=== PATIENT | male | born 1990 ===

== ENCOUNTER 2022-04-10 12:23 | Outpatient (REF) | payer BC, SELFPAY ==
--- NOTE | ~2022-04-10 | XR_ITS ---
EXAMINATION: XR HAND, LEFT CLINICAL INFORMATION: Puncture wound without foreign body COMPARISON: None TECHNIQUE: PA, lateral, and oblique views of the left hand. FINDINGS: Third digit: No evidence of fracture or malalignment. No radiopaque foreign body is identified. Joint spaces are maintained. Remainder of the osseous structures appear intact. XR/XR hand LT 2V IMPRESSION: No evidence of acute fracture or malalignment. No radiographic evidence of radiopaque foreign body.
== END 2022-04-10 12:24 | disposition home or self-care (01) ==
LOC: HO.XRAY 12:23
PROVIDERS: PCP Internal Medicine; Visit Provider Physician Assistant
DX: S61.432D Puncture wound without foreign body of left hand, subsequent encounter (principal)
CPT/HCPCS: 73120

== ENCOUNTER 2022-04-30 07:03 | Outpatient (REF) | payer BC, SELFPAY ==
--- NOTE | ~2022-04-30 | XR_ITS ---
EXAMINATION: XR HAND, LEFT CLINICAL INFORMATION: Pain, left third finger. Prior report notes history puncture wound. COMPARISON: Radiographs left hand 04/10/2022 TECHNIQUE: PA, lateral, and oblique views of the left hand. FINDINGS: There is a small cleft or possibly an incomplete cortical fracture lateral head third finger middle phalanx with punctate osseous density overlying this site on AP view. No callus or destructive process. No periostitis. No dislocation or subluxation. Remainder of the bony structures appear intact. There is normal bony mineralization. No gas tracking in soft tissues. XR/XR hand LT min 3V IMPRESSION: -Small cleft or incomplete cortical fracture lateral head third finger middle phalanx with punctate osseous density overlying this area. -No dislocation or destructive process. No gas tracking in soft tissues.
== END 2022-04-30 07:04 | disposition home or self-care (01) ==
LOC: HO.HOSX 07:03
PROVIDERS: Visit Provider Physician Assistant
DX: M79.642 Pain in left hand (principal)
CPT/HCPCS: 73130

== ENCOUNTER 2022-05-09 10:20 | Outpatient (REF) | payer BC, SELFPAY ==
--- NOTE | ~2022-05-09 | XR_ITS ---
EXAMINATION: XR LUMBOSACRAL SPINE CLINICAL INFORMATION: M51.9 Unspecified thoracic, thoracolumbar and lumbosacral pain. COMPARISON: None TECHNIQUE: Three views of the lumbosacral spine. FINDINGS: Normal lumbar segmentation with 5 nonrib-bearing vertebrae of normal height and normal lumbar lordosis. There are some small Schmorl's nodes seen at the vertebral endplates at T12 and L1. There are mild degenerative disc changes at T12-L1 with mild disc narrowing. No lumbar vertebral compression, spondylolisthesis, or destructive process. No erosive changes. The SI joints and visualized sacrum are unremarkable. XR/XR lumbar spine 2-3V IMPRESSION: Degenerative disc changes T12-L1. No lumbar vertebral compression, spondylolisthesis, or destructive process.
[2022-05-09 10:41] LABS: MANUAL DIFF FLAG NO
[2022-05-09 11:26] LABS: Basophils Absolute Auto 0.1 X10*3/uL (0.0-0.2); Basophils Percent Auto 1.3 % (0-2); Eosinophils Absolute Auto 0.1 X10*3/uL (0.0-0.4); Eosinophils Percent Auto 2.2 % (0-4); Hematocrit 45.4 % (42.0-52.0); Hemoglobin 15.4 g/dl (14.0-18.0); Imm Gran Abs Auto 0.01 X10*3/uL (0.00-0.03); Imm Gran Pct Auto 0.2 % (0.0-0.4); Lymphocytes Absolute Auto 1.9 X10*3/uL (1.2-4.9); Lymphocytes Percent Auto 34.2 % (20-40); Mean Corpuscular HGB Conc 33.9 g/dl (31.0-36.0); Mean Corpuscular Hemoglobin 26.9 pg (27.0-33.0); Mean Corpuscular Volume 79.4 fL (80.0-98.0); Mean Platelet Volume 9.6 fL (9.4-12.4); Monocytes Absolute Auto 0.4 X10*3/uL (0.1-1.2); Monocytes Percent Auto 6.5 % (2-11); Neutrophils Absolute Auto 3.1 x10*3/uL (2.0-8.3); Neutrophils Percent Auto 55.6 % (45-73); Platelet Count 295 X10*3/uL (160-400); Red Blood Count 5.72 X10*6/uL (4.60-5.80); Red Cell Distribution Width 13.7 % (11.0-16.0); White Blood Count 5.6 X10*3/uL (4.8-10.8)
[2022-05-09 11:38] LABS: Estimated Average Glucose 105 mg/dL; Hemoglobin A1c % 5.3 %
[2022-05-09 12:01] LABS: Alanine Aminotransferase 29 U/L (0-40); Albumin Level 4.8 g/dL (3.5-5.0); Alkaline Phosphatase 49 U/L (39-117); Anion Gap 13 (12-20); Aspartate Amino Transferase 23 U/L (5-37); Bilirubin Total 1.2 mg/dL (0.0-1.0); Blood Urea Nitrogen 13 mg/dL (9-16); Calcium 9.5 mg/dL (8.4-10.2); Carbon Dioxide 26 mmol/L (22-29); Chloride 105 mmol/L (96-108); Cholesterol 171 mg/dL; Estimated Glomerular Filt Rate > 60; Glucose Random 94 mg/dL (60-115); HDL Cholesterol 36 mg/dL; LDL Cholesterol Calculated 106 mg/dl; Potassium 4.3 mmol/L (3.3-5.1); Sodium 140 mmol/L (135-145); Total Protein 7.8 g/dL (6.5-8.0); Triglycerides 149 mg/dL
[2022-05-09 12:24] LABS: Thyroid Stimulating Hormone 2.04 uIU/mL (0.32-4.0)
[2022-05-09 12:30] LABS: Vitamin B12 783 pg/mL (200-900)
== END 2022-05-09 10:21 | disposition home or self-care (01) ==
LOC: HO.XRAY 10:20
PROVIDERS: PCP Internal Medicine; Visit Provider Internal Medicine
DX: M51.9 Unspecified thoracic, thoracolumbar and lumbosacral intervertebral disc disorder (principal); E66.9 Obesity, unspecified; E78.00 Pure hypercholesterolemia, unspecified
CPT/HCPCS: 36415; 72100; 80053; 80061; 82607; 82746; 83036; 84439; 84443; 85025

== ENCOUNTER → 2022-05-27 08:07 | Outpatient (REF) | payer BC, SELFPAY ==
--- NOTE | 2022-05-27 08:12 | CA_ITS ---
Acquisition Time: 2022-05-27 08:27:06 Total Exercise Time: 00:09:30 Test Indications: Chest Pain Medications: ELETRIPTAN RIZATRIPAN SERTRALINE TRAZADONE VALACYCLOVIR Protocol: LATESHA Max HR: 193 BPM 102% of Pred: 189 BPM Max BP: 190/048 mmHG Max Work Load: 11.1 METS Exerise stress test using Latesha protocol for total of 9 min 30 sec, METS 10.1, TAPHR 102%. Pt tolerated exercise stress test well, denies any cardiac sx. EKG without any arrhythmias, no ischemic changes found during exercise or in recovery. Hypertensive response to exercise. Test reviewed with Dr. Schrader. Referred By: Rosamaria Sam Overread By: Kezia Caceres NP
[2022-06-01 11:02] LABS: Testosterone, Total 480 ng/dL (250-1100)
== END ==
LOC: HO.CARD 08:07
PROVIDERS: PCP Internal Medicine; Visit Provider Internal Medicine
DX: R07.9 Chest pain, unspecified (principal); K21.9 Gastro-esophageal reflux disease without esophagitis
CPT/HCPCS: 36415; 84403; 93017

== ENCOUNTER 2022-07-25 09:40 | Outpatient (REF) | payer BC, SELFPAY ==
--- NOTE | ~2022-07-25 | US_ITS ---
EXAMINATION: US EXTRACRANIAL CAROTID DUPLEX, BILATERAL CLINICAL INFORMATION: Left carotid bruit COMPARISON: None TECHNIQUE: Real-time ultrasound and Doppler techniques (integrating B-mode 2-D vascular images, Doppler spectral analysis and color-flow Doppler imaging) were utilized to interrogate the extracranial carotid arteries, the vertebral arteries and proximal subclavian arteries bilaterally. The degree of stenosis is determined by criteria similar to NASCET. FINDINGS: Right Side: 1. There is no significant atherosclerotic plaque seen in the bifurcation/proximal ICA region. 2. The common carotid artery PSV proximally is 171 cm/s and distally 164 cm/s. 3. The proximal internal carotid artery velocities are 114 cm/s systolic and 35 cm/s diastolic. 4. The proximal external carotid artery PSV is 139 cm/s. 5. The vertebral artery shows antegrade flow. 6. The subclavian artery waveforms are normal. Left Side: 1. There is no significant atherosclerotic plaque seen in the bifurcation/proximal ICA region. 2. The common carotid artery PSV proximally is 163 cm/s and distally 149 cm/s. 3. The proximal internal carotid artery velocities are 110 cm/s systolic and 32 cm/s diastolic. 4. The proximal external carotid artery PSV is 125 cm/s. 5. The vertebral artery shows antegrade flow. 6. The subclavian artery waveforms are normal. 7. Prominent lymph node is seen in the left neck adjacent to the carotid bifurcation measuring 3.2 x 1.0 x 2.0 cm US/US carotid duplex BI IMPRESSION: 1. RIGHT: Normal right internal carotid artery without atherosclerotic plaque or hemodynamically significant stenosis. 2. LEFT: Normal left internal carotid artery without atherosclerotic plaque or hemodynamically significant stenosis. 3. Enlarged lymph node in the left neck.
== END 2022-07-25 09:41 | disposition home or self-care (01) ==
LOC: HO.HMGCX 09:40
PROVIDERS: PCP Physician Assistant; Visit Provider Physician Assistant
DX: R09.89 Other specified symptoms and signs involving the circulatory and respiratory systems (principal)
CPT/HCPCS: 93880

== ENCOUNTER 2022-10-31 13:37 | Outpatient (REF) | payer BC, SELFPAY ==
--- NOTE | 2022-10-31 16:11 | PFT_ITS ---
INDICATION: Shortness of breath. SPIROMETRY: FEV1 to FVC of 88% with an FEV1 of 4.1 L, which is 89% predicted. FVC of 4.68 L, which is 84% predicted. No significant response to bronchodilators noted. Maximum voluntary ventilation 94% predicted. LUNG VOLUMES: Total lung capacity 84% predicted with an expiratory reserve volume of 46% predicted. DIFFUSION CAPACITY: DLCO 90% predicted. Flow volume loop appears to be normal. COMPARISONS: None. INTERPRETATION: No obstructive nor restrictive ventilatory defects identified. No significant response to bronchodilators noted. Normal maximum voluntary ventilation. The patient has a low normal total lung capacity and a decreased expiratory reserve volume secondary to an elevated BMI. Diffusion capacity is within normal limits. No clear indication for the patient's dyspnea symptoms based on this PFT. Clinical correlation warranted. MD YOSEF Mclaughlin/JOSI / [id number]
== END 2022-10-31 13:38 | disposition home or self-care (01) ==
LOC: HO.RESP 13:37
PROVIDERS: PCP Internal Medicine; Visit Provider Internal Medicine
DX: R06.02 Shortness of breath (principal)
CPT/HCPCS: 94060; 94727; 94729

== ENCOUNTER → 2023-01-07 13:54 | Outpatient (BNVA) | payer BC, SELFPAY | PROVIDERS: PCP Internal Medicine; Visit Provider Nurse Practitioner Family | DX: Z13.89 Encounter for screening for other disorder (principal) ==

== ENCOUNTER → 2023-03-20 10:53 | Outpatient (BNVA) | payer BC, SELFPAY | PROVIDERS: PCP Internal Medicine; Visit Provider Urology | DX: Z30.2 Encounter for sterilization (principal); F41.8 Other specified anxiety disorders | CPT/HCPCS: 55250 ==

== ENCOUNTER 2023-05-22 14:24 | Outpatient (REF) | payer BC, SELFPAY | END 2023-05-22 14:25 | disposition home or self-care (01) | LOC: HO.LAB 14:24 | PROVIDERS: PCP Internal Medicine; Visit Provider Internal Medicine | DX: R73.02 Impaired glucose tolerance (oral) (principal); N28.9 Disorder of kidney and ureter, unspecified; E78.00 Pure hypercholesterolemia, unspecified; R71.8 Other abnormality of red blood cells | CPT/HCPCS: 36415; 80053; 80061; 82607; 82728; 82746; 83540; 84439; 84443; 85025; 85045 ==

== ENCOUNTER 2023-07-17 08:57 | Outpatient (REF) | payer BC, SELFPAY ==
--- NOTE | ~2023-07-17 | FL_ITS ---
EXAMINATION: XR FLUOROSCOPY UPPER GI WITH AIR CLINICAL INFORMATION: Patient complaining of episodic dysphasia hypopharyngeal phase, GERD. COMPARISON: None available. TECHNIQUE: Fluoroscopic standard technique air contrast upper GI examination was performed utilizing thick and thin barium with effervescent granules. Numerous spot images were obtained. FINDINGS: Lateral cine exam during swallowing demonstrated normal oropharyngeal and hypopharyngeal phases with normal epiglottic inversion and normal soft palate elevation. No evidence of nasopharyngeal reflux or laryngeal penetration or aspiration. The hypopharynx has a normal appearance without evidence of mass, cricopharyngeal bar, or other abnormality. The esophagus has a normal caliber and course. There is no stricture, mass, or evidence of mucosal abnormality. Esophageal peristalsis was normal, with powerful urinary peristalsis and no tertiary contractions. No evidence of hiatus hernia was evident. There was episodic gastroesophageal reflux noted during the examination to the level of the aortic arch. Images of the stomach demonstrates normal contour and fold pattern. No ulcerations, masses, or other abnormalities identified. Contrast freely passed into the duodenal bulb and sweep without delay. Imaging of the duodenal bulb and sweep demonstrate normal mucosal fold patterns and caliber without focal abnormalities. FLUOROSCOPY TIME: 3.7 minutes 35 spot images obtained. DOSE AREA PRODUCT: 42.553 uGy-m2 (microgray-meter squared) FL/FL upper GI w air IMPRESSION: 1. Spontaneous gastroesophageal reflux identified to the level of the aortic arch episodically during the exam. 2. Remainder of the examination is normal.
== END 2023-07-17 08:58 | disposition home or self-care (01) ==
LOC: HO.XRAY 08:57
PROVIDERS: PCP Internal Medicine; Visit Provider Internal Medicine
DX: R13.10 Dysphagia, unspecified (principal); K21.9 Gastro-esophageal reflux disease without esophagitis
CPT/HCPCS: 74246

== ENCOUNTER → 2023-07-17 08:59 | Outpatient (BNV) | payer BC, SELFPAY | PROVIDERS: PCP Internal Medicine; Visit Provider Radiology Diagnostic Radiology | DX: K21.9 Gastro-esophageal reflux disease without esophagitis (principal) | CPT/HCPCS: 74246 ==

== ENCOUNTER 2023-10-03 07:45 | Outpatient (REF) | payer BC, SELFPAY ==
--- NOTE | ~2023-10-03 | CT_ITS ---
EXAMINATION: CT HEAD WITHOUT CONTRAST CLINICAL INFORMATION: Headaches. COMPARISON: None. TECHNIQUE: Contiguous axial imaging was performed from the skullbase to vertex without intravenous administration of contrast. This CT examination was performed using dose optimization techniques as appropriate, variously including the following: *Automated exposure control *Adjustment of mA and/or kV according to patient size (this includes techniques or standardized protocols for targeted exams where dose is matched to indication/reason for exam; i.e. extremities or head) *Use of iterative reconstruction technique DLP: 1014 mGy-cm. FINDINGS: There is no evidence of acute intracranial hemorrhage or territorial infarction. No abnormal mass effect or midline shift is seen. Peter to white matter differentiation is well preserved. No extra-axial fluid collections are identified. An incidental 1.3 cm synovial cyst is visible. The ventricles are normal in size. There is no abnormal attenuation within the brain parenchyma. The osseous structures and soft tissues are normal. The mastoid air cells are well aerated. Mild ethmoid sinus mucosal thickening noted. CT/CT head/brain wo IV con IMPRESSION: No acute intracranial pathology.
== END 2023-10-03 07:46 | disposition home or self-care (01) ==
LOC: HO.CT 07:45
PROVIDERS: PCP Internal Medicine; Visit Provider Internal Medicine
DX: R51.9 Headache, unspecified (principal)
CPT/HCPCS: 70450

== ENCOUNTER 2023-10-03 08:40 | Outpatient (AMB) | payer BC, SELFPAY ==
--- NOTE | 2023-10-03 13:43 | AM.OFFVISNUR ---
Intake Intake Visit Reasons: flu Allergies No Known Allergies Allergy (Verified 05/22/23 13:44) Office Procedures Flu Questionnaire Does the patient have a severe egg allergy?: No Does the patient have severe life threatening allergies?: No Does the patient have a fever or illness today?: No Has the patient ever had Guillain-Marlette Syndrome?: No Has the patient ever had any past reaction to a flu shot?: No Immunizations flu vacc [id number] 6mos up(PF) 60 mcg(15 mcgx4)/0.5 mL IM syringe Performing Provider: Rosamaria Sam MD Performing Location: [facility] Administered by: Ayde Cook RN on 10/03/23 13:43 Dose Route Admin Location Dispensed Lot Number Expiration Date NDC Safety Deposit Clerk 0.5 mL IM Left Deltoid 0.5 mL [id number] 05/16/24 31390-986-35 [employer] VIS Given Date VIS Provided VIS Publication Date 10/03/23 Single Vaccine 21 Eligibility Eligibility Date Funding Source Not [facility] Eligible 10/03/23 Private Coding Assessment & Plan Assessment & Plan Orders: Orders Influenza [id number] Immunization Today Z23 - Encounter for immunization
== END 2023-10-03 13:43 | disposition home or self-care (01) ==
LOC: HO.HMGH 08:40
PROVIDERS: PCP Internal Medicine; Visit Provider Internal Medicine
DX: Z23 Encounter for immunization (principal)
CPT/HCPCS: 90471; 90686

== ENCOUNTER 2023-10-13 09:59 | Outpatient (AMB) | payer BC, SELFPAY ==
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
[2023-10-13 10:17] VITALS: BP 110/82; PULSE 78; O2SAT 96; BMI 36.8
== END 2023-10-13 11:32 | disposition home or self-care (01) ==
PROVIDERS: PCP Internal Medicine; Visit Provider Nurse Practitioner Family
DX: G43.709 Chronic migraine without aura, not intractable, without status migrainosus (principal); G43.109 Migraine with aura, not intractable, without status migrainosus; G47.33 Obstructive sleep apnea (adult) (pediatric)
CPT/HCPCS: 99204; 99214

== ENCOUNTER → 2023-10-13 09:59 | Outpatient (BNVA) | payer BC, SELFPAY | PROVIDERS: PCP Internal Medicine; Visit Provider Nurse Practitioner Family ==

== ENCOUNTER 2023-10-15 08:01 | Outpatient (AMB) | payer BC, SELFPAY ==
[2023-10-15 08:10] VITALS: BP 102/68; PULSE 82; TEMP 36.7; O2SAT 96; BMI 36.2
--- NOTE | 2023-10-15 08:10 | AM.OFFWIN_ITS ---
Intake Vital Signs 10/15/23 08:10 Height 6 ft Weight 267 lb BMI 36.2 BP 102/68 Blood Pressure Location Lt brachial Position Sitting Pulse 82 Pulse Source Pulse Oximeter Temp 98.1 F Temp Source Oral Pulse Oximetry (%) 96 Oxygen Delivery Method Room Air Intake Visit Reasons: EST/sore throat/headaches(lobby masked) Intake Note: Pt is here today c/o S/T, H/A and bodyaches x3 days Patient Tobacco Use Status: Never used Tobacco Allergies No Known Allergies Allergy (Verified 10/15/23 08:11) Medication List - Last Reconciled 10/15/23 by Nichelle Simms PA-C amitriptyline 10 - 20 mg (1 - 2 x 10 mg) PO BEDTIME 30 days benzonatate 100 mg PO TID PRN famotidine 20 mg PO BEDTIME hydroxyzine HCl 10 mg PO TID PRN rizatriptan 5 - 10 mg (0.5 - 1 x 10 mg) PO Q2H PRN 21 days sertraline 25 mg PO DAILY ubrogepant (Ubrelvy) 50 - 100 mg (0.5 - 1 x 100 mg) PO ONCE PRN 30 days Do you need a note to return to daycare/school/sports/work: No HPI HPI Comments History of Present Illness Details He presents for flu like symptoms 3-4 days ago 15mo child has RSV He thought maybe it was RSV but also works at [employer] and exposed to flu He admits to initial night sweats, chills, body aches No fever He said he is better but now has cough, sore throat/tonsil pain and alessandra st/wheezing He has used daughters albuterol which helps He denies hx of smoking Pt tried OTC Theraflu on Day 1 of symptoms PFSH Medical History (Updated 10/13/23 @ 12:29 by TINA Staley) Pharyngitis Otitis media Upper respiratory tract infection SOB (shortness of breath) Left carotid bruit Chest pain Puncture wound of finger of left hand IBS (irritable bowel syndrome) Lumbar disc disease Plantar fasciitis, bilateral Sciatic leg pain Tinnitus PTSD (post-traumatic stress disorder) Generalized anxiety disorder Obesity (BMI 30-39.9) Migraine Surgical History H/O vasectomy Family History Mother No problems noted. Father No problems noted. Daughter No problems noted. Son No problems noted. Daughter No problems noted. Brother No problems noted. Sister No problems noted. Sister No problems noted. Other Lupus Mental health disorder Social History (Updated 05/22/23 @ 14:02 by Rosamaria Sam MD) Housing: House Alcohol intake: current Patient Tobacco Use Status: Never used Tobacco e-Cigarette/Vaping Use: Never Used Second Hand Smoke Exposure: No service: Yes Current occupational status: employed Cognitive needs: No Hearing needs: No Vision needs: Yes Review of Systems Const Reports body aches, Reports chills, Reports fatigue, Denies fever(s) and Reports night sweats ENT Denies dizziness, Reports nasal congestion, Denies sinus pain, Reports sore throat and Denies throat swelling Card Denies chest pain and Denies dyspnea Resp Reports cough and Denies dyspnea Neuro Denies dizziness Endo Reports fatigue Aller/Immun Denies throat swelling Physical Exam Vital Signs: Last Vital Signs Temp 98.1 F 10/15/23 08:10 Pulse 82 10/15/23 08:10 BP 102/68 10/15/23 08:10 Pulse Ox 96 10/15/23 08:10 Oxygen Delivery Method Room Air 10/15/23 08:10 BMI result Body Mass Index 36.2 General: Non-toxic, NAD. Speaking full sentences. Skin: Warm dry throughout Eye: PERRL, EOMI HENT: Airway patent. Uvula midline. slight pharyngeal erythema without edema or exudates. No GOVERNMENT RELATIONS MANAGER. Bilateral canals clear. TM non-erythematous, non-bulging. No TM perforation or hemotympanum noted. Respiratory: CTA bilaterally. No wheezes, rales or rhonchi Cardiac: RRR. No murmur MSK: Full ROM extremities. Neurology: No aphasia or facial droop.Gait without abnormality Psych: Good mood and affect Results AMB Rapid Strep AMB Rapid Strep Negative Last Edit by Alyce Howell CMA on 10/15/23 08:24 Assessment & Plan Assessment & Plan Orders: Orders AMB Rapid Strep Screen Today Z13.9 - Encounter for screening, unspecified Medardo Sparrow MD Medications: New benzonatate 100 mg PO TID PRN 14 caps 0RF cough Nichelle Simms, PA-C Patient Instructions: Pt seen and evaluated Lungs CTAStrep negative Exposure to RSV and flu but on day 4 of symptoms Vitals stable Tessalon for cough Increase fluids/rest Call with concerns ED if worsening symptoms and/or CP/SOB All questions answered prior to d/c Coding Level of Care Code Est Pt Level 3 (92005)
== END 2023-10-15 09:18 | disposition home or self-care (01) ==
PROVIDERS: PCP Internal Medicine; Visit Provider Physician Assistant
DX: J02.9 Acute pharyngitis, unspecified (principal)
CPT/HCPCS: 87880; 99213

== ENCOUNTER 2023-10-27 08:31 | Outpatient (AMB) | payer BC, SELFPAY ==
--- NOTE | 2023-10-27 08:35 | AM.OFFWIN_ITS ---
Intake Vital Signs 10/27/23 08:44 Height 6 ft Weight 121.109 kg BMI 36.2 BP 128/60 Blood Pressure Location Rt brachial Position Sitting Pulse 96 Temp 99.1 F Temp Source Temporal Artery Scan Pulse Oximetry (%) 97 Oxygen Delivery Method Room Air Intake Visit Reasons: EP body aches cough congestion chills [id number] Intake Note: pt is here today foe body aches,cough congestion, chills, possible covid started yesterday Patient Tobacco Use Status: Never used Tobacco Allergies No Known Allergies Allergy (Verified 10/27/23 08:37) Do you need a note to return to daycare/school/sports/work: Yes HPI HPI Comments History of Present Illness Details [id number] 33-year-old male history of migraines, o besity, PTSD, anxiety, IBS, CHARLES who presents with fatigue, malaise, myalgias, cough, subjective fevers and chills that started yesterday old decided. 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 Unlikely pneumonia, ACS, dissection, pulmonary embolism, acute respiratory distress Plan at this time viral testing will discharge patient home with supportive measures. Educated patient on diagnosis and treatment plan, answered all question, patient verbalizes understanding. At this time patient will be discharged home, advised to return with new or worsening symptoms. Educated on worrisome signs and symptoms and when to return. At this time I feel comfortable discharge home. [facility] Medical History Pharyngitis Otitis media Upper respiratory tract infection SOB (shortness of breath) Left carotid bruit Chest pain Puncture wound of finger of left hand IBS (irritable bowel syndrome) Lumbar disc disease Plantar fasciitis, bilateral Sciatic leg pain Tinnitus PTSD (post-traumatic stress disorder) Generalized anxiety disorder Obesity (BMI 30-39.9) Migraine Surgical History H/O vasectomy Family History Mother No problems noted. Father No problems noted. Daughter No problems noted. Son No problems noted. Daughter No problems noted. Brother No problems noted. Sister No problems noted. Sister No problems noted. Other Lupus Mental health disorder Social History Housing: House Alcohol intake: current Patient Tobacco Use Status: Never used Tobacco e-Cigarette/Vaping Use: Never Used Second Hand Smoke Exposure: No service: Yes Current occupational status: employed Cognitive needs: No Hearing needs: No Vision needs: Yes Review of Systems Const Details: Constitutional : No Weight loss, + Fever, + Chills, + Fatigue, + Malaise ENT/Mouth : No sore throat, No Rhinorrhea Eyes: No Eye Pain, No Swelling, No Redness Cardiovascular : No Chest Pain, No SOB, No Dyspnea on Exertion, No Orthopnea, No Edema, No Palpitations Respiratory : + Cough, No Sputum, No Wheezing Gastrointestinal : No Nausea, No Vomiting, No Diarrhea, No Constipation, No abdominal Pain, No Hematochezia, No Melena Genitourinary : No Dysuria, No Urinary Frequency, No Hematuria, Musculoskeletal : No joint pain, + Myalgias, No Joint Swelling Skin : No Skin Lesions, No rash Neuro : No Weakness, No Numbness, No Dizziness, No Headache Psych : No Anxiety/Panic, No Depression All other systems reviewed and are negative All systems reviewed & are unremarkable except as noted in HPI and below Physical Exam Vital Signs: Last Vital Signs Temp 99.1 F 10/27/23 08:44 Pulse 96 10/27/23 08:44 BP 128/60 10/27/23 08:44 Pulse Ox 97 10/27/23 08:44 Oxygen Delivery Method Room Air 10/27/23 08:44 BMI result Body Mass Index 36.2 Vital signs stable Appearance: Alert.? Oriented X3.? No acute distress.? Head: Normocephalic, atraumatic, no step-offs or deformities Eyes: Pupils equal, round and reactive to light.? Neck: Normal inspection.? Neck supple.? CVS: Normal heart rate and rhythm.? Pulses normal.? Respiratory: No respiratory distress.? Breath sounds normal.? Abdomen: Soft and nontender.? Skin: Skin warm and dry.? Normal skin color.? Normal skin turgor.? Extremities: No lower extremity edema.? No calf ttp. 5/5 strength to bilateral upper and lower extremities Neuro: Oriented X 3.? No motor deficit.? No sensory deficit. CN 2-12 intact Assessment & Plan Assessment & Plan (1) Viral illness: Code(s): B34.9 - Viral infection, unspecified Plan Take your medications as prescribed. If you were prescribed antibiotics today, it is important that you take your medication to their entirety, do not skip any doses, do not finish them early. Follow-up with your primary care provider this week. Return to the emergency department with new or worsening symptoms. Such as fevers, chills, chest pain, shortness of breath, nausea, vomiting, dizziness, headache, vision changes, lethargy In case of emergency call 911 Orders: Orders SARS-CoV2/FLU/RSV Today B34.9 - Viral infection, unspecified Medications: New albuterol sulfate 90 mcg/actuation 2 puffs inhalation Q6H PRN 6.7 grams 0RF shortness of breath or wheezing prednisone 40 mg (2 x 20 mg) PO DAILY 10 tabs 0RF 5 days Coding Level of Care Code Est Pt Level 3 (45405) Diagnoses Viral illness B34.9
[2023-10-27 08:44] VITALS: BP 128/60; PULSE 96; TEMP 37.3; O2SAT 97; BMI 36.2
== END 2023-10-27 09:30 | disposition home or self-care (01) ==
PROVIDERS: PCP Internal Medicine; Visit Provider Physician Assistant
DX: B34.9 Viral infection, unspecified (principal)
CPT/HCPCS: 87880; 99213

== ENCOUNTER 2023-10-27 11:55 | Outpatient (REF) | payer BC, SELFPAY ==
[2023-10-27 12:54] LABS: Influenza A PCR NEGATIVE (Negative); Influenza B PCR NEGATIVE (Negative); Resp Syncy Virus RNA Qual PCR NEGATIVE (Negative); SARS COV2 PCR INHOUSE POSITIVE (Negative)
== END 2023-10-27 11:56 | disposition home or self-care (01) ==
LOC: HO.LNP 11:55
PROVIDERS: Visit Provider Physician Assistant
DX: Z11.52 Encounter for screening for COVID-19 (principal); B34.9 Viral infection, unspecified; Z20.822 Contact with and (suspected) exposure to COVID-19
CPT/HCPCS: 0241U

== ENCOUNTER 2023-12-18 07:29 | Outpatient (AMB) | payer BC, SELFPAY ==
--- NOTE | 2023-12-18 07:43 | A.OFFVIS_ITS ---
Intake Vital Signs 12/18/23 07:44 Height 6 ft Weight 277 lb 8 oz BMI 37.6 BP 122/78 Blood Pressure Location Rt brachial Position Sitting Respiration 16 Pulse 79 Pulse Source Pulse Oximeter Pulse Oximetry (%) 97 Oxygen Delivery Method Room Air Intake Visit Reasons: 4 wks f/u migraines ok per Meghann-Confirmed Intake Note: Pt presents for a 4 month follow up for migraines. Pt reports he still gets migraines 2-3 times weekly. 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 Allergies No Known Allergies Allergy (Verified 12/18/23 07:43) Medication List - Last Reconciled 12/18/23 by Meghann Irving, TINA albuterol sulfate 90 mcg/actuation 2 puffs inhalation Q6H PRN amitriptyline 10 - 20 mg (1 - 2 x 10 mg) PO BEDTIME 30 days benzonatate 100 mg PO TID PRN famotidine 20 mg PO BEDTIME hydroxyzine HCl 10 mg PO TID PRN nirmatrelvir-ritonavir 300 mg (150 mg x 2)-100 mg (Paxlovid) take TWO 150 mg tablets of nirmatrelvir with ONE 100 mg tablet of ritonavir twice daily for 5 days PO prednisone 40 mg (2 x 20 mg) PO DAILY 5 days rizatriptan 5 - 10 mg (0.5 - 1 x 10 mg) PO Q2H PRN 21 days sertraline 25 mg PO DAILY HPI HPI Comments History of Present Illness Details 33-yr-old male presents for f/u visit. Pt reports he has had 2 interval COVID-19 infection. One was mild. The other 1 he was much more symptomatic and required prednisone and Paxlovid tx. While he was on Paxlovid, his Ubrelvy was discontinued due to interaction with Paxlovid. He states he is continuing to have 2-3 migraine days per week, which are not as severe as before. He does continue to have low level headaches most other days, but not all. Ubrelvy is effective and tolerated well. He believes he did start amitriptyline, but but thinks he is taking in the morning. His helps him set up his med box. He will double check on his amitriptyline dose and let me know. Baseline headache characteristics: Aura: Rarely- sees random spots coming and going. Severe, Starts with eye discomfort (a funny feeling). Holocranial or right sided throbbing pain a/w Photophobia, blurry vision, some photophobia, allodynia, nausea, some dizziness, brain fog, fatigued, worsening maribell tinnitus, activity intolerance. Current number of typical migraine days in the past month: 2-3 migraine days per week Average painfulness of these migraines: Not as severe Current number of non-migraine headache days per month: Frequent low level headaches Average painfulness of these headaches: Mild Previous number of migraine days per month prior to starting current preventive tx: Near daily PFSH Medical History Pharyngitis Otitis media Upper respiratory tract infection SOB (shortness of breath) Left carotid bruit Chest pain Puncture wound of finger of left hand IBS (irritable bowel syndrome) Lumbar disc disease Plantar fasciitis, bilateral Sciatic leg pain Tinnitus PTSD (post-traumatic stress disorder) Generalized anxiety disorder Obesity (BMI 30-39.9) Migraine Surgical History H/O vasectomy Family History Mother No problems noted. Father No problems noted. Daughter No problems noted. Son No problems noted. Daughter No problems noted. Brother No problems noted. Sister No problems noted. Sister No problems noted. Other Lupus Mental health disorder Social History Housing: House Alcohol intake: current Patient Tobacco Use Status: Never used Tobacco e-Cigarette/Vaping Use: Never Used Second Hand Smoke Exposure: No service: Yes Current occupational status: employed Cognitive needs: No Hearing needs: No Vision needs: Yes Physical Exam Vital Signs: Last Vital Signs Pulse 79 12/18/23 07:44 Resp 16 12/18/23 07:44 BP 122/78 12/18/23 07:44 Pulse Ox 97 12/18/23 07:44 Oxygen Delivery Method Room Air 12/18/23 07:44 BMI result Body Mass Index 37.6 Const General: cooperative and no acute distress Orientation/consciousness: patient oriented x3 Resp Effort & Inspection: normal respiratory effort and able to speak in complete sentences Neuro General: patient oriented x3 Cranial nerves: Yes CN's II-XII intact bilaterally Cognition (Neuro): normal cognition Psych Appearance: grossly normal Mental Status: mental status grossly normal Speech and movement: Normal speech and movement present Affect: normal affect Attitude: cooperative Assessment & Plan Assessment & Plan (1) Chronic migraine without aura: Code(s): G43.709 - Chronic migraine without aura, not intractable, without status migrainosus (2) Migraine with aura: Comment: Occassional migraine w/ aura- may see spots and has had right sided head num bness Code(s): G43.109 - Migraine with aura, not intractable, without status migrainosus (3) Obstructive sleep apnea (adult) (pediatric): Comment: CPAP 04/2022 cannot tolerate CPAP Code(s): G47.33 - Obstructive sleep apnea (adult) (pediatric) Plan For overall headache management: Continue to optimize good self-care, including but not limited to maintaining a healthy diet, adequate fluid intake, adequate sleep, and engaging in regular physical activity. Track headaches. May try blue light filtering glasses, green glasses, green light therapy.. For sleep: Will follow arms status of oral appliance fitting for tx of CHARLES.. ? For acute headache treatment: Discussed importance of taking acute medications at the first sign of headache, however stressed importance of avoiding acute medication overuse (especially with combined headache medications). Continue Rizatripatn 10mg at onset of migarine, may repeat in 2 hrs (max 2 tabs per day or 6 tabs per week). May take with OTC Tylenol 650mg q 4 hours, Ibuprofen 600mg q 6 hours, or Naproxen 440mg q 12 hrs prn. Resume Ubrogepant (Ubrelvy) 100mg tab, 1/2 - 1 tab (50-100mg) at onset of headache, may repeat in 2 hours. Max of 2 tabs (200mg) per 24 hours. May adjunct with rizatriptan, or OTC Tylenol 650mg q 4 hours, Ibuprofen 600mg q 6 hours, or Naproxen 440mg q 12 hrs prn. Previous acute migraine medication trials: Sumatriptan- caused neck/facial numbness. Eletriptan- ineffective. Acute migraine medication contraindications: None at this time. ? For headache prevention medication: Patient will update me on how he is currently taking Amitriptyline- was ordered at this 10-20mg qhs. Previous migraine prevention medication trials: Propranolol 10mg bid x's 8 wks- ineffective. Migraine prevention medication contraindications: Would not increase Propranolol further d/t SOBOE. ? Reviewed benefits of neuromodulation devices for acute and preventive treatment of migraine. GammaCore also has good evidence for treatment of PTSD in veterans. As pt is a , we can request coverage for Gamma Core or Nerivio through the [facility]. ? Pt to follow-up in 3 months or sooner prn. Medications: Refilled ubrogepant (Ubrelvy) take at onset of migraine, may repeat in 2hrs (may take w/ Ibuprofen) 50 - 100 mg (0.5 - 1 x 100 mg) PO ONCE 30 days PRN 16 tabs 6RF migraine headache ubrogepant (Ubrelvy) take at onset of migraine, may repeat in 2hrs (may take w/ Ibuprofen) 50 - 100 mg (0.5 - 1 x 100 mg) PO ONCE 30 days PRN 16 tabs 3RF migraine headache MDD 2 tabs Discontinued prednisone Discontinued Reason: Patient Completed Course 40 mg (2 x 20 mg) PO DAILY 5 days 10 tabs 0RF nirmatrelvir-ritonavir 300 mg (150 mg x 2)-100 mg (Paxlovid) Discontinued Reason: Patient Completed Course take TWO 150 mg tablets of nirmatrelvir with ONE 100 mg tablet of ritonavir twice daily for 5 days PO 30 ea 0RF U07.1 - COVID-19 Coding Level of Care Code Est Pt Level 4 (77129) Diagnoses Chronic migraine without aura G43.709 Migraine with aura G43.109 Obstructive sleep apnea (adult) (pediatric) G47.33
[2023-12-18 07:44] VITALS: BP 122/78; PULSE 79; RESP 16; O2SAT 97; BMI 37.6
== END 2023-12-18 08:45 | disposition home or self-care (01) ==
PROVIDERS: PCP Internal Medicine; Visit Provider Nurse Practitioner Family
DX: G43.709 Chronic migraine without aura, not intractable, without status migrainosus (principal); G43.109 Migraine with aura, not intractable, without status migrainosus; G47.33 Obstructive sleep apnea (adult) (pediatric)
CPT/HCPCS: 99214

== ENCOUNTER → 2023-12-18 07:29 | Outpatient (BNVA) | payer BC, SELFPAY | PROVIDERS: PCP Internal Medicine; Visit Provider Nurse Practitioner Family ==

== ENCOUNTER 2024-01-02 16:52 | Outpatient (REF) | payer BC, SELFPAY ==
[2024-01-02 17:01] LABS: MANUAL DIFF FLAG NO
[2024-01-02 17:31] LABS: Basophils Percent Auto 0.7 % (0-2); Eosinophils Absolute Auto 0.3 X10*3/uL (0.0-0.4); Eosinophils Percent Auto 4.6 % (0-4); Hematocrit 43.1 % (42.0-52.0); Hemoglobin 14.4 g/dl (14.0-18.0); Imm Gran Abs Auto 0.01 X10*3/uL (0.00-0.03); Imm Gran Pct Auto 0.2 % (0.0-0.4); Lymphocytes Absolute Auto 2.2 X10*3/uL (1.2-4.9); Lymphocytes Percent Auto 35.7 % (20-40); Mean Corpuscular HGB Conc 33.4 g/dl (31.0-36.0); Mean Corpuscular Hemoglobin 26.9 pg (27.0-33.0); Mean Corpuscular Volume 80.4 fL (80.0-98.0); Mean Platelet Volume 9.5 fL (9.4-12.4); Monocytes Absolute Auto 0.8 X10*3/uL (0.1-1.2); Monocytes Percent Auto 13.7 % (2-11); Neutrophils Absolute Auto 2.8 x10*3/uL (2.0-8.3); Neutrophils Percent Auto 45.1 % (45-73); Platelet Count 259 X10*3/uL (160-400); Red Blood Count 5.36 X10*6/uL (4.60-5.80); Red Cell Distribution Width 14.2 % (11.0-16.0); White Blood Count 6.1 X10*3/uL (4.8-10.8)
[2024-01-02 18:14] LABS: Alanine Aminotransferase 36 U/L (0-40); Albumin Level 4.5 g/dL (3.5-5.0); Alkaline Phosphatase 49 U/L (39-117); Anion Gap 12 (12-20); Aspartate Amino Transferase 27 U/L (5-37); Bilirubin Total 0.5 mg/dL (0.0-1.0); Blood Urea Nitrogen 17 mg/dL (9-16); Calcium 9.6 mg/dL (8.4-10.2); Carbon Dioxide 29 mmol/L (22-29); Chloride 103 mmol/L (96-108); Estimated Glomerular Filt Rate > 60; Glucose Random 98 mg/dL (60-115); Potassium 3.6 mmol/L (3.3-5.1); Sodium 140 mmol/L (135-145); Total Protein 7.7 g/dL (6.5-8.0)
[2024-01-02 18:31] LABS: Free T4 (Free Thyroxine) 0.88 ng/dL (0.71-1.85); Thyroid Stimulating Hormone 4.02 uIU/mL (0.32-4.0)
== END 2024-01-02 16:53 | disposition home or self-care (01) ==
LOC: HO.LAB 16:52
PROVIDERS: PCP Internal Medicine; Visit Provider Internal Medicine
DX: R73.02 Impaired glucose tolerance (oral) (principal); N28.9 Disorder of kidney and ureter, unspecified
CPT/HCPCS: 36415; 80053; 84439; 84443; 85025

== ENCOUNTER 2024-01-20 09:36 | Outpatient (AMB) | payer BC, SELFPAY ==
[2024-01-20 09:36] VITALS: BP 122/78; BMI 37.2
--- NOTE | 2024-01-20 09:36 | A.OFFPC_ITS ---
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 Patient has followed up with Neurology for migraines states 2-3 migraines per week does Ubrelvy, rizatriptan placed on amitriptyline. PAtient is awaiting dental appliance but he sleeps on his belly. Patient relates to me that children at home who goes to daycare had some infection and he caught it and he was feeling bad having a cough and shortness of breath. Patient did go to an urgent center and was treated conservatively as was told this is viral. at that time and called on to get workup done. Patient is slowly getting better. [facility] Medical History Pharyngitis Otitis media Upper respiratory tract infection SOB (shortness of breath) Left carotid bruit Chest pain Puncture wound of finger of left hand IBS (irritable bowel syndrome) Lumbar disc disease Plantar fasciitis, bilateral Sciatic leg pain Tinnitus PTSD (post-traumatic stress disorder) Generalized anxiety disorder Obesity (BMI 30-39.9) Migraine Surgical History H/O vasectomy Family History Mother No problems noted. Father No problems noted. Daughter No problems noted. Son No problems noted. Daughter No problems noted. Brother No problems noted. Sister No problems noted. Sister No problems noted. Other Lupus Mental health disorder Social History Housing: House Alcohol intake: current Patient Tobacco Use Status: Never used Tobacco e-Cigarette/Vaping Use: Never Used Second Hand Smoke Exposure: No service: Yes Current occupational status: employed Cognitive needs: No Hearing needs: No Vision needs: Yes Questionnaire Thrive Questionnaire Date Thrive assessed: 01/20/24 AUDIT C Alcohol Use Questionnaire (AUDIT-C) 1. How often do you have a drink containing alcohol?: 2-4 times a month 2. How many drinks containing alcohol do you have on a typical day when you are drinking?: 3 or 4 3. How often do you have six or more drinks on one occasion?: Never Total Score: 3 ARTURO-7 AMB Questionnaire ARTURO-7 Date ARTURO - 7 assessed: 01/20/24 Source: Developed by Drs. Harley Maloney, Ros Tadeo, rIwin Recinos and colleagues, with an educational sena from [employer]. Review of Systems Const Denies poor appetite and Denies weakness Eyes Denies no additional complaints ENT Reports Normal hearing present, Denies dizziness, Denies nasal congestion, Denies tinnitus and Denies sore throat Card Denies chest pain, Denies syncope, Denies rapid heart rate and Denies dyspnea Resp Denies cough and Denies dyspnea GI Denies change in stool character, Reports constipation, Denies diarrhea, Denies nausea and Denies vomiting Denies dysuria and Denies urinary frequency Neuro Reports Normal hearing present, Denies confusion, Denies dizziness, Denies syncope and Denies weakness Psych Denies confusion Physical exam (Primary Care) Vital Signs: Last Vital Signs BP 122/78 01/20/24 09:36 Oxygen Delivery Method Room Air 01/20/24 09:36 BMI result Body Mass Index 37.2 Tobacco/Smoking Status: Tobacco use Status Tobacco use date assessed 01/20/24 01/20/24 09:42 Patient Tobacco Use Status Never used Tobacco 01/20/24 09:42 e-Cigarette/Vaping Use Never Used 01/20/24 09:42 Thrive Assessment: Date of Thrive Assessment Date Thrive assessed 01/20/24 01/20/24 09:42 Const General: No confusion Orientation/consciousness: No confusion HENMT Head: Yes normocephalic Ears: external ears normal and TM's normal bilaterally Face and sinus: Yes normal facial exam Mouth: moist mucous membranes Throat: Yes tonsils normal Eyes Conjunctivae: conjunctivae normal Pupils: Equal, round and reactive pupils present and Pupil accommodation reflex normal Direct Ophthalmoscopy: normal light reflex Neck Neck: No lymphadenopathy Thyroid: Thyroid normal Chest Chest palpation & inspection: normal inspection of the chest Resp Effort & Inspection: normal respiratory effort and no audible wheezes Auscultation: clear to auscultation bilaterally, no crackles, no wheezes and lung sounds not diminished Cardio Rate: regular rate Rhythm: regular rhythm Peripheral pulses: radial pulses present and dorsalis pedis present GI Palpation (GI): no masses Auscultation: normal bowel sounds and normoactive bowel sounds Rectal Exam - Male: Yes deferred Skin General skin exam: no rashes or lesions noted Rashes: no rashes Neuro General: No confusion Cranial nerves: Yes Equal, round and reactive pupils present and Yes Normal hearing present Cognition (Neuro): normal cognition Gait exam (Neuro): Normal gait present Motor exam (neuro): 5/5 motor strength present throughout Deep tendon reflexes (DTR's): Right brachioradialis reflex intensity grade: 2+, Left brachioradialis reflex intensity grade: 2+, Right patellar reflex intensity grade: 2+ and Left patellar reflex intensity grade: 2+ Extrem General: No edema Assessment and Plan Assessment & Plan (1) GERD (gastroesophageal reflux disease): Code(s): K21.9 - Gastro-esophageal reflux disease without esophagitis Plan: Avoid the foods that causes that usually spicy foods, tomato products, juices, coffee, soda and foods that your sensitive to. After eating do not lie down, allow 3-4 hours before in lie down. And keep the head of bed above 30 degrees to avoid the acid from going up. (2) Migraine: Code(s): G43.909 - Migraine, unspecified, not intractable, without status migrainosus Plan: Patient continues to follow-up with Neurology on Ubrelvy, rizatriptan 10 amitriptyline (3) Obesity (BMI 30-39.9): Code(s): E66.9 - Obesity, unspecified Plan: Diet and exercise (4) Generalized anxiety disorder: Comment: psychiatrist [place]- dr. Bradley Rogers Code(s): F41.1 - Generalized anxiety disorder Plan: Continue with present medication and counseling (5) Obstructive sleep apnea (adult) (pediatric): Comment: CPAP 04/2022 cannot tolerate CPAP Code(s): G47.33 - Obstructive sleep apnea (adult) (pediatric) Plan: Discussed importance of obstructive sleep apnea treatment. Still awaiting for dental appliance (6) Impaired glucose tolerance: Code(s): R73.02 - Impaired glucose tolerance (oral) Plan: Decrease the amount of carbohydrate intake, pasta, bread, rice and potatoes are all sugar and that is aside from all the sweet stuff, remember that fruits are good but they are Sweet also. (7) Viral infection: Code(s): B34.9 - Viral infection, unspecified Plan: reassurance, increase oral fluids, resolved Medications: Refilled acyclovir 400 mg PO TID 5 days 15 tabs 2RF Coding Level of Care Code Est Pt Level 4 (09470) Est Pt Prev Care 18-39y(33203) Diagnoses GERD (gastroesophageal reflux disease) K21.9 Migraine G43.909 Obesity (BMI 30-39.9) E66.9 Generalized anxiety disorder F41.1 Obstructive sleep apnea (adult) (pediatric) G47.33 Impaired glucose tolerance R73.02 Viral infection B34.9
== END 2024-01-20 10:33 | disposition home or self-care (01) ==
PROVIDERS: PCP Internal Medicine; Visit Provider Internal Medicine
DX: Z00.00 Encounter for general adult medical examination without abnormal findings (principal); E66.9 Obesity, unspecified; Z68.37 Body mass index [BMI] 37.0-37.9, adult; K21.9 Gastro-esophageal reflux disease without esophagitis; G43.909 Migraine, unspecified, not intractable, without status migrainosus; F41.1 Generalized anxiety disorder; G47.33 Obstructive sleep apnea (adult) (pediatric); R73.02 Impaired glucose tolerance (oral); B34.9 Viral infection, unspecified
CPT/HCPCS: 99395

== ENCOUNTER 2024-02-11 08:23 | Outpatient (AMB) | payer BC, SELFPAY ==
[2024-02-11 09:02] VITALS: BP 132/84; PULSE 83; TEMP 36.7; O2SAT 97; BMI 37.6
--- NOTE | 2024-02-11 09:02 | AM.OFFWIN_ITS ---
Intake Vital Signs 02/11/24 09:02 Height 6 ft Weight 277 lb 4 oz BMI 37.6 BP 132/84 Blood Pressure Location Rt brachial Position Sitting Pulse 83 Pulse Source Pulse Oximeter Temp 98.0 F Temp Source Oral Pulse Oximetry (%) 97 Oxygen Delivery Method Room Air Intake Visit Reasons: EP RT ear infection Intake Note: Pt presents to the office for c/o right ear pain. Pt states it started about 4 weeks ago. Pt states he has sharp pains on and off. Pt states he also couldnt hear that well. Patient Tobacco Use Status: Never used Tobacco Allergies No Known Allergies Allergy (Verified 02/11/24 09:05) HPI HPI Comments History of Present Illness Details He presents with R ear pain Has been going x 4 weeks Initially it was a sharp pain; very panful but intermittent He said a few days ago it felt muffled and blocked He has tried to clean ears and sleep on R side without relief No pain scale given [facility] Medical History Pharyngitis Otitis media Upper respiratory tract infection SOB (shortness of breath) Left carotid bruit Chest pain Puncture wound of finger of left hand IBS (irritable bowel syndrome) Lumbar disc disease Plantar fasciitis, bilateral Sciatic leg pain Tinnitus PTSD (post-traumatic stress disorder) Generalized anxiety disorder Obesity (BMI 30-39.9) Migraine Surgical History H/O vasectomy Family History Mother No problems noted. Father No problems noted. Daughter No problems noted. Son No problems noted. Daughter No problems noted. Brother No problems noted. Sister No problems noted. Sister No problems noted. Other Lupus Mental health disorder Social History Housing: House Alcohol intake: current Patient Tobacco Use Status: Never used Tobacco e-Cigarette/Vaping Use: Never Used Second Hand Smoke Exposure: No service: Yes Current occupational status: employed Cognitive needs: No Hearing needs: No Vision needs: Yes Review of Systems Const Denies chills, Denies fatigue, Denies fever(s) and Denies headache(s) Eyes Denies change in vision ENT Denies dizziness, Denies ear discharge, Reports otalgia, Denies headache(s), Denies nasal discharge and Denies sore throat Resp Denies cough Skin/Breast Denies changing lesions Neuro Denies dizziness and Denies headache(s) Endo Denies fatigue Physical Exam Vital Signs: Last Vital Signs Temp 98.0 F 02/11/24 09:02 Pulse 83 02/11/24 09:02 BP 132/84 02/11/24 09:02 Pulse Ox 97 02/11/24 09:02 Oxygen Delivery Method Room Air 02/11/24 09:02 BMI result Body Mass Index 37.6 General: Non-toxic, NAD. Speaking full sentences. Skin: Warm dry throughout Eye: EOMI HENT: Airway patent. Uvula midline. No pharyngeal erythema or edema. No ASSISTANT HAIRSTYLIST. Bilateral canals clear. R TM slight erythema without bulging or perforation. L TM non-erythematous, non-bulging. No TM perforation or hemotympanum noted. Respiratory: No respiratory distress Neurology: A. No aphasia or facial droop. Gait without abnormality Psych: Good mood and affect Assessment & Plan Assessment & Plan (1) Ear pain, right: Code(s): H92.01 - Otalgia, right ear Plan: No cerumen or impaction R TM + erythematous whether do infection vs trauma induced from him trying to clean Advised to avoid anything in the ear or further trauma Amoxicillin course to take with food F/U with PCP if not resolved in 1 week Call with questions Pt gave verbal understanding and all questions answered. Medications: New amoxicillin 875 mg PO BID 14 tabs 0RF Coding Level of Care Code Est Pt Level 3 (18466) Diagnoses Ear pain, right H92.01
== END 2024-02-11 09:30 | disposition home or self-care (01) ==
PROVIDERS: PCP Internal Medicine; Visit Provider Physician Assistant
DX: H92.01 Otalgia, right ear (principal)
CPT/HCPCS: 99213

== ENCOUNTER 2024-02-23 16:29 | Outpatient (AMB) | payer BC, SELFPAY ==
[2024-02-23 16:33] VITALS: BP 138/80; PULSE 76; O2SAT 98; BMI 38.0
--- NOTE | 2024-02-23 16:33 | A.OFFPC_ITS ---
Vital Signs 02/23/24 16:33 Height 6 ft Weight 280 lb BMI 38.0 BP 138/80 Blood Pressure Location Lt brachial Position Sitting Pulse 76 Pulse Source Pulse Oximeter Pulse Oximetry (%) 98 Oxygen Delivery Method Room Air Intake Visit Reasons: Ear discomfort Continuity Tester Required: No Allergies No Known Allergies Allergy (Verified 02/23/24 16:34) Medication List - Last Reconciled 02/23/24 by Rosamaria Sam MD acyclovir 400 mg PO TID 5 days albuterol sulfate 90 mcg/actuation 2 puffs inhalation Q6H PRN amitriptyline 10 - 20 mg (1 - 2 x 10 mg) PO BEDTIME 30 days amoxicillin 875 mg PO BID azithromycin (Zithromax) For 250 mg dose pack: take 500 mg today (day 1), then 250 mg for 4 days (days 2-5) PO benzonatate 100 mg PO TID PRN famotidine 20 mg PO BEDTIME rizatriptan 5 - 10 mg (0.5 - 1 x 10 mg) PO Q2H PRN 21 days sertraline 25 mg PO DAILY ubrogepant (Ubrelvy) 50 - 100 mg (0.5 - 1 x 100 mg) PO ONCE PRN 30 days ubrogepant (Ubrelvy) 50 - 100 mg (0.5 - 1 x 100 mg) PO ONCE PRN 30 days MDD 2 tabs Tobacco use date assessed: 02/23/24 Dental Screening Dental Screen Date: 05/22/23 HPI Ear discomfort HPI Details [age] Year old obese male with a history of GERD impaired glucose tolerance, migraine generalized anxiety disorder and obstructive sleep apnea coming in for ear pain. Last seen in January 2024.. Review of the notes was in the Urgent Center for right ear pain and was treated with amoxicillin. [facility] Medical History Pharyngitis Otitis media Upper respiratory tract infection SOB (shortness of breath) Left carotid bruit Chest pain Puncture wound of finger of left hand IBS (irritable bowel syndrome) Lumbar disc disease Plantar fasciitis, bilateral Sciatic leg pain Tinnitus PTSD (post-traumatic stress disorder) Generalized anxiety disorder Obesity (BMI 30-39.9) Migraine Surgical History H/O vasectomy Family History Mother No problems noted. Father No problems noted. Daughter No problems noted. Son No problems noted. Daughter No problems noted. Brother No problems noted. Sister No problems noted. Sister No problems noted. Other Lupus Mental health disorder Social History Housing: House Alcohol intake: current Patient Tobacco Use Status: Never used Tobacco e-Cigarette/Vaping Use: Never Used Second Hand Smoke Exposure: No service: Yes Current occupational status: employed Cognitive needs: No Hearing needs: No Vision needs: Yes Questionnaire Thrive Questionnaire Date Thrive assessed: 01/20/24 AUDIT C Alcohol Use Questionnaire (AUDIT-C) 1. How often do you have a drink containing alcohol?: 2-4 times a month 2. How many drinks containing alcohol do you have on a typical day when you are drinking?: 3 or 4 3. How often do you have six or more drinks on one occasion?: Never Total Score: 3 ARTURO-7 AMB Questionnaire ARTURO-7 Date ARTURO - 7 assessed: 01/20/24 Source: Developed by Drs. Harley Maloney, Ros Tadeo, Irwin Recinos and colleagues, with an educational sena from [employer]. Physical exam (Primary Care) Vital Signs: Last Vital Signs Pulse 76 02/23/24 16:33 BP 138/80 02/23/24 16:33 Pulse Ox 98 02/23/24 16:33 Oxygen Delivery Method Room Air 02/23/24 16:33 BMI result Body Mass Index 38.0 Tobacco/Smoking Status: Tobacco use Status Tobacco use date assessed 02/23/24 02/23/24 16:34 Patient Tobacco Use Status Never used Tobacco 02/23/24 16:34 e-Cigarette/Vaping Use Never Used 02/23/24 16:34 Thrive Assessment: Date of Thrive Assessment Date Thrive assessed 01/20/24 02/23/24 16:34 Const Other: Right TM mild bulging with mild erythema around the wall Assessment and Plan Assessment & Plan (1) Otitis media, right: Code(s): H66.91 - Otitis media, unspecified, right ear Qualifiers: Otitis media type: unspecified nonsuppurative Qualified Code(s): H65.91 - Unspecified nonsuppurative otitis media, right ear Plan: since getting better will continue monitoring Medications: New azithromycin (Zithromax) For 250 mg dose pack: take 500 mg today (day 1), then 250 mg for 4 days (days 2-5) PO 6 tabs 0RF H66.91 - Otitis media, unspecified, right ear Discontinued hydroxyzine HCl Discontinued Reason: Doctor's Order 10 mg PO TID PRN 30 tabs 0RF itching Coding Level of Care Code Est Pt Level 3 (24188) Diagnoses Right non-suppurative otitis media H65.91 Otitis media type: unspecified nonsuppurative
== END 2024-02-23 17:33 | disposition home or self-care (01) ==
PROVIDERS: PCP Internal Medicine; Visit Provider Internal Medicine
DX: H65.91 Unspecified nonsuppurative otitis media, right ear (principal)
CPT/HCPCS: 99213

== ENCOUNTER 2024-03-03 08:01 | Outpatient (AMB) | payer BC, SELFPAY ==
[2024-03-03 08:12] VITALS: BP 136/80; PULSE 103; TEMP 37.9; O2SAT 98; BMI 38.0
--- NOTE | 2024-03-03 08:12 | MHC.OFFWIV ---
Intake Vital Signs 03/03/24 08:12 Height 6 ft Weight 280 lb BMI 38.0 BP 136/80 Blood Pressure Location Lt brachial Position Sitting Pulse 103 H Pulse Source Pulse Oximeter Temp 100.3 F Temp Source Oral Pulse Oximetry (%) 98 Oxygen Delivery Method Room Air Intake Visit Reasons: EP Cough, Fever, Headache Intake Note: pt is here for cough, fever, headache, sore throat. patients its been going on for 2 days Patient Tobacco Use Status: Never used Tobacco Allergies No Known Allergies Allergy (Verified 03/03/24 08:13) Do you need a note to return to daycare/school/sports/work: Yes HPI HPI Comments History of Present Illness Details 33 y/o male patient who presents to walk in clinic with c/o URI symptoms x 2 days. Pt has a fever today of 100 F PFSH Medical History Pharyngitis Otitis media Upper respiratory tract infection SOB (shortness of breath) Left carotid bruit Chest pain Puncture wound of finger of left hand IBS (irritable bowel syndrome) Lumbar disc disease Plantar fasciitis, bilateral Sciatic leg pain Tinnitus PTSD (post-traumatic stress disorder) Generalized anxiety disorder Obesity (BMI 30-39.9) Migraine Surgical History H/O vasectomy Family History Mother No problems noted. Father No problems noted. Daughter No problems noted. Son No problems noted. Daughter No problems noted. Brother No problems noted. Sister No problems noted. Sister No problems noted. Other Lupus Mental health disorder Social History Housing: House Alcohol intake: current Patient Tobacco Use Status: Never used Tobacco e-Cigarette/Vaping Use: Never Used Second Hand Smoke Exposure: No service: Yes Current occupational status: employed Cognitive needs: No Hearing needs: No Vision needs: Yes Review of Systems Const All systems reviewed & are unremarkable except as noted in HPI and below Physical Exam Vital Signs: Last Vital Signs Temp 100.3 F 03/03/24 08:12 Pulse 103 H 03/03/24 08:12 BP 136/80 03/03/24 08:12 Pulse Ox 98 03/03/24 08:12 Oxygen Delivery Method Room Air 03/03/24 08:12 BMI result Body Mass Index 38.0 Const General: no acute distress; No comfortable Orientation/consciousness: patient oriented x3 HEENT Head: Yes normocephalic Ears: external ears normal and TM abnormal with fluid behind the TM bilateral General nose exam: Abnormal mucous membranes and turbinates present boggy and erythematous Face and sinus: Yes sinuses nontender Mouth: moist mucous membranes Throat: Yes posterior oropharynx normal Resp Effort & Inspection: normal respiratory effort and able to speak in complete sentences Auscultation: clear to auscultation bilaterally, no crackles, no rales, no rhonchi and no wheezes Cardio Rate: regular rate Rhythm: regular rhythm Neuro General: patient oriented x3 Assessment & Plan Assessment & Plan (1) Upper respiratory infection: Code(s): J06.9 - Acute upper respiratory infection, unspecified Qualifiers: URI type: unspecified viral URI Qualified Code(s): J06.9 - Acute upper respiratory infection, unspecified Plan: - SARs - Treated for Influenza empirically. - Acetaminophen for pain and fever relief - OTC cold and flu remedies. Orders: Orders SARS-CoV2/FLU/RSV Today R09.89 - Other specified symptoms and signs involving the circulatory and respiratory systems AMB Rapid Strep Screen Today Z13.9 - Encounter for screening, unspecified Medications: New oseltamivir (Tamiflu) 75 mg PO BID 5 days 10 caps 0RF J06.9 - Acute upper respiratory infection, unspecified acetaminophen 1,000 mg (2 x 500 mg) PO Q6H PRN 30 caps 0RF fever J06.9 - Acute upper respiratory infection, unspecified Coding Level of Care Code Est Pt Level 3 (98268) Diagnoses Viral upper respiratory tract infection J06.9 URI type: unspecified viral URI Time Spent (min) 15
== END 2024-03-03 09:42 | disposition home or self-care (01) ==
PROVIDERS: PCP Internal Medicine; Visit Provider Nurse Practitioner Family
DX: J06.9 Acute upper respiratory infection, unspecified (principal)
CPT/HCPCS: 99213

== ENCOUNTER 2024-03-03 08:29 | Outpatient (REF) | payer BC, SELFPAY ==
[2024-03-03 11:39] LABS: Influenza A PCR NEGATIVE (Negative); Influenza B PCR NEGATIVE (Negative); Resp Syncy Virus RNA Qual PCR NEGATIVE (Negative); SARS COV2 PCR INHOUSE NEGATIVE (Negative)
== END 2024-03-03 08:30 | disposition home or self-care (01) ==
LOC: HO.LAB 08:29
PROVIDERS: Visit Provider Nurse Practitioner Family
DX: R09.89 Other specified symptoms and signs involving the circulatory and respiratory systems (principal)
CPT/HCPCS: 0241U

== ENCOUNTER 2024-04-20 08:27 | Outpatient (AMB) | payer BC, SELFPAY ==
[2024-04-20 08:32] VITALS: BP 140/102; PULSE 71; O2SAT 97; BMI 37.7
--- NOTE | 2024-04-20 08:32 | MHC.OFFVIS ---
Vital Signs 04/20/24 08:32 Height 6 ft Weight 278 lb BMI 37.7 BP 140/102 H Blood Pressure Location Rt brachial Position Sitting Pulse 71 Pulse Source Pulse Oximeter Pulse Oximetry (%) 97 Oxygen Delivery Method Room Air Oxygen Flow Rate 140 Intake Visit Reasons: 4 mo f/u-CONF Intake Note: Patient here for follow up migraines. whichb ate better with nedication provider cheyanne. Allergies No Known Allergies Allergy (Verified 04/20/24 08:36) Medication List - Last Reconciled 04/20/24 by TINA Staley acetaminophen 1,000 mg (2 x 500 mg) PO Q6H PRN acyclovir 400 mg PO TID 5 days albuterol sulfate 90 mcg/actuation 2 puffs inhalation Q6H PRN amitriptyline 10 - 20 mg (1 - 2 x 10 mg) PO BEDTIME 30 days famotidine 20 mg PO BEDTIME oseltamivir (Tamiflu) 75 mg PO BID 5 days rizatriptan 5 - 10 mg (0.5 - 1 x 10 mg) PO Q2H PRN 21 days scopolamine base (Transderm-Scop) 1 patch transdermal Q3D PRN sertraline 25 mg PO DAILY ubrogepant (Ubrelvy) 50 - 100 mg (0.5 - 1 x 100 mg) PO ONCE PRN 30 days MDD 2 tabs HPI Comments Details: 33-yr-old male presents for f/u visit. Pt denies any significant interval medical changes. Pt is having 3-4 headache days per week, of which 1 major one per week. The Ubrelvy helps well, if he takes it at the 1st sign of the headache. He notes that sometimes he does not have it with him. He did switch his Amitriptyline fro qam to qhs. He can still feel groggy in the am, which he thinks may be r/t his mild CHARLES. He did not tolerate [facility]AP tx, but [facility]. He is waiting to receive this. Baseline headache characteristics: Baseline headache characteristics: Aura: Rarely- sees random spots coming and going. Severe, Starts with eye discomfort (a funny feeling). Holocranial or right sided throbbing pain a/w Photophobia, blurry vision, some photophobia, allodynia, nausea, some dizziness, brain fog, fatigued, worsening maribell tinnitus, activity intolerance. [facility] Medical History Pharyngitis Otitis media Upper respiratory tract infection SOB (shortness of breath) Left carotid bruit Chest pain Puncture wound of finger of left hand IBS (irritable bowel syndrome) Lumbar disc disease Plantar fasciitis, bilateral Sciatic leg pain Tinnitus PTSD (post-traumatic stress disorder) Generalized anxiety disorder Obesity (BMI 30-39.9) Migraine Surgical History H/O vasectomy Family History Mother No problems noted. Father No problems noted. Daughter No problems noted. Son No problems noted. Daughter No problems noted. Brother No problems noted. Sister No problems noted. Sister No problems noted. Other Lupus Mental health disorder Social History Housing: House Alcohol intake: current Patient Tobacco Use Status: Never used Tobacco e-Cigarette/Vaping Use: Never Used Second Hand Smoke Exposure: No service: Yes Current occupational status: employed Cognitive needs: No Hearing needs: No Vision needs: Yes Physical Exam Vital Signs: Last Vital Signs Pulse 71 04/20/24 08:32 BP 140/102 H 04/20/24 08:32 Pulse Ox 97 04/20/24 08:32 Oxygen Delivery Method Room Air 04/20/24 08:32 Oxygen Flow Rate 140 04/20/24 08:32 BMI result Body Mass Index 37.7 Const General: cooperative and no acute distress Orientation/consciousness: patient oriented x3 Resp Effort & Inspection: normal respiratory effort and able to speak in complete sentences Neuro General: patient oriented x3 Cranial nerves: Yes CN's II-XII intact bilaterally Cognition (Neuro): normal cognition Psych Appearance: grossly normal Mental Status: mental status grossly normal Speech and movement: Normal speech and movement present Affect: normal affect Attitude: cooperative Assessment & Plan Assessment & Plan (1) Migraine with aura: Comment: Occassional migraine w/ aura- may see spots and has had right sided head numbness Code(s): G43.109 - Migraine with aura, not intractable, without status migrainosus Category: Medical (2) Obstructive sleep apnea (adult) (pediatric): Comment: CPAP 04/2022 cannot tolerate CPAP Code(s): G47.33 - Obstructive sleep apnea (adult) (pediatric) Category: Medical (3) Daytime sleepiness: Code(s): R40.0 - Somnolence Category: Medical Plan For overall headache management: Continue to optimize good self-care, including but not limited to maintaining a healthy diet, adequate fluid intake, adequate sleep, and engaging in regular physical activity. Track headaches. May try blue light filtering glasses, green glasses, green light therapy.. For sleep: Concur w/ trying mandibulr device for tx of CHARLES- if daytime tiredness does not imrpove, consider trying alternate to Amitriptyline. ? For acute headache treatment: Discussed importance of taking acute medications at the first sign of headache, however stressed importance of avoiding acute medication overuse. Pt advised to carry acute meds w/ him- use a keyring pillbox or carry a backpack w/ him. Continue Rizatripatn 10mg at onset of migraine, may repeat in 2 hrs (max 2 tabs per day or 6 tabs per week). May take with OTC Tylenol 650mg q 4 hours, Ibuprofen 600mg q 6 hours, or Naproxen 440mg q 12 hrs prn. Resume Ubrogepant (Ubrelvy) 100mg tab, 1/2 - 1 tab (50-100mg) at onset of headache, may repeat in 2 hours. Max of 2 tabs (200mg) per 24 hours. May adjunct with rizatriptan, or OTC Tylenol 650mg q 4 hours, Ibuprofen 600mg q 6 hours, or Naproxen 440mg q 12 hrs prn. Previous acute migraine medication trials: Sumatriptan- caused neck/facial numbness. Eletriptan- ineffective. Acute migraine medication contraindications: None at this time. ? For headache prevention medication: Continue Amitriptyline 10-20mg qhs. Previous migraine prevention medication trials: Propranolol 10mg bid x's 8 wks- ineffective. Migraine prevention medication contraindications: Would not increase Propranolol further d/t SOBOE. ? Again reviewed benefits of neuromodulation devices for acute and preventive treatment of migraine. [employer] also has good evidence for treatment of PTSD in - he will considers. As pt is a , we can request coverage for [employer] or [employer] through the [place]. ? Pt to follow-up in 6 months or sooner prn. Medications: Changed From rizatriptan max 2 tabs per day or 6 tabs per week 5 - 10 mg (0.5 - 1 x 10 mg) PO Q2H 21 days PRN 14 tabs 3RF migraine headache To rizatriptan May take w/ Ubrelvy. Max 2 tabs per day or 6 tabs per week 5 - 10 mg (0.5 - 1 x 10 mg) PO Q2H 21 days PRN 14 tabs 6RF migraine headache From ubrogepant (Ubrelvy) take at onset of migraine, may repeat in 2hrs (may take w/ Ibuprofen) 50 - 100 mg (0.5 - 1 x 100 mg) PO ONCE 30 days PRN 16 tabs 3RF migraine headache MDD 2 tabs To ubrogepant (Ubrelvy) take at onset of migraine, may repeat in 2hrs (may take w/ Ibuprofen and/or Rizatriptan) 50 - 100 mg (0.5 - 1 x 100 mg) PO ONCE 30 days PRN 16 tabs 6RF migraine headache MDD 2 tabs Coding Level of Care Code Est Pt Level 4 (41646) Diagnoses Migraine with aura G43.109 Obstructive sleep apnea (adult) (pediatric) G47.33 Daytime sleepiness R40.0
== END 2024-04-20 09:23 | disposition home or self-care (01) ==
PROVIDERS: PCP Internal Medicine; Visit Provider Nurse Practitioner Family
DX: G43.109 Migraine with aura, not intractable, without status migrainosus (principal); G47.33 Obstructive sleep apnea (adult) (pediatric); R40.0 Somnolence
CPT/HCPCS: 99214

== ENCOUNTER → 2024-04-20 08:27 | Outpatient (BNVA) | payer BC, SELFPAY | PROVIDERS: PCP Internal Medicine; Visit Provider Nurse Practitioner Family ==

== ENCOUNTER 2024-05-25 08:59 | Outpatient (AMB) | payer BC, SELFPAY ==
[2024-05-25 09:03] VITALS: BP 128/76; PULSE 80; O2SAT 98; BMI 38.8
--- NOTE | 2024-05-25 09:03 | A.OFFPC_ITS ---
Vital Signs 05/25/24 09:03 Height 6 ft Weight 286 lb BMI 38.8 BP 128/76 Blood Pressure Location Lt brachial Position Sitting Pulse 80 Pulse Source Pulse Oximeter Pulse Oximetry (%) 98 Oxygen Delivery Method Room Air Intake Visit Reasons: PE Allergies No Known Allergies Allergy (Verified 05/25/24 09:03) Medication List - Last Reconciled 05/25/24 by Rosamaria Sam MD acetaminophen 1,000 mg (2 x 500 mg) PO Q6H PRN albuterol sulfate 90 mcg/actuation 2 puffs inhalation Q6H PRN amitriptyline 10 - 20 mg (1 - 2 x 10 mg) PO BEDTIME 30 days famotidine 20 mg PO BEDTIME rizatriptan 5 - 10 mg (0.5 - 1 x 10 mg) PO Q2H PRN 21 days scopolamine base (Transderm-Scop) 1 patch transdermal Q3D PRN sertraline 25 mg PO DAILY ubrogepant (Ubrelvy) 50 - 100 mg (0.5 - 1 x 100 mg) PO ONCE PRN 30 days MDD 2 tabs Tobacco use date assessed: 02/23/24 Dental Screening Dental Screen Date: 05/25/24 Did you have a dental visit in the last 12 months?: Yes Did you have a dental problem in the last 6 months where you did not have access to dental care?: No Was dental information given to patient?: Patient has dentist HPI PE HPI Details 33-year-old obese male with a history of generalized anxiety disorder migraine GERD obstructive sleep apnea impaired glucose tolerance with mild renal insufficiency IBS coming in for physical exam last seen for otitis media in 02/2024. Patient is here for physical exam. Review of the notes has followed up with Neurology for the migraines 03/06/2024 migraine advised to try mandibular device for obstructive sleep apnea treated with rizatriptan/Tylenol/Motrin. Has been placed on Ubrelvy and amitriptyline 10 mg at bedtime. 03/03/2024 urgent care visit for upper respiratory tract infection in treated empirically with Tamiflu but the test was negative. did get a mandibular device . [facility] on [facility] Medical History (Updated 05/25/24 @ 09:18 by Rosamaria Sam MD) Vasectomy evaluation Anxiety about health Laceration of left thumb Headache Chronic migraine without aura COVID-19 virus infection Viral infection Ear pain, right Otitis media, right Daytime sleepiness Pharyngitis Otitis media Upper respiratory tract infection SOB (shortness of breath) Left carotid bruit Chest pain Puncture wound of finger of left hand IBS (irritable bowel syndrome) Lumbar disc disease Plantar fasciitis, bilateral Sciatic leg pain Tinnitus PTSD (post-traumatic stress disorder) Generalized anxiety disorder Obesity (BMI 30-39.9) Surgical History H/O vasectomy Family History Mother No problems noted. Father No problems noted. Daughter No problems noted. Son No problems noted. Daughter No problems noted. Brother No problems noted. Sister No problems noted. Sister No problems noted. Other Lupus Mental health disorder Social History (Updated 05/25/24 @ 09:27 by Rosamaria Sam MD) Housing: House Alcohol intake: current Comment: 3x a week 2 drinks Patient Tobacco Use Status: Never used Tobacco e-Cigarette/Vaping Use: Never Used Second Hand Smoke Exposure: No service: Yes Current occupational status: employed Cognitive needs: No Hearing needs: No Vision needs: Yes Questionnaire PHQ-9 Over the last 2 weeks, how often have you been bothered by any of the following problems? 1. Little interest or pleasure in doing things: nearly every day 2. Feeling down, depressed, or hopeless: nearly every day 3. Trouble falling or staying asleep, or sleeping too much: nearly every day 4. Feeling tired or having little energy: nearly every day 5. Poor appetite or overeating: nearly every day 6. Feeling bad about yourself - or that you are a failure or have let yourself or your family down: nearly every day 7. Trouble concentrating on things, such as reading the newspaper or watching television: not at all 8. Moving or speaking so slowly that other people could have noticed. Or the opposite - being so fidgety or restless that you have been moving around a lot more than usual: not at all 9. Thoughts that you would be better off or of hurting yourself in some way: not at all Total score: 18 Depression Screening Interpretation: Negative Depression Screening Done: Yes Source: Developed by Drs. Harley Maloney, Ros Tadeo, Irwin Recinos and colleagues, with an educational sena from [employer]. Thrive Questionnaire Date Thrive assessed: 05/25/24 I am a: Patient What is your living situation today?: I have a steady place to live Within the past 12 months, did the food you bought not last and you didn't have the money to get more?: Never true Within the past 12 months, did you worry whether your food would run out before you got money to buy more?: Never true Do you have trouble paying for medicines?: No Do you have trouble getting transportation to medical appointments?: No Do you have trouble paying your heating and electricity bill?: No Do you have trouble taking care of your child, family member or friend?: No Do you have trouble with day-to-day activities such as bathing, preparing meals, shopping, managing finances, etc.?: No Are you currently unemployed and looking for a job?: No Are you interested in more education?: No Currently or been in a relationship where the following occur: No concerns reported THRIVE Score: 0 AUDIT C Alcohol Use Questionnaire (AUDIT-C) 1. How often do you have a drink containing alcohol?: 2-4 times a month 2. How many drinks containing alcohol do you have on a typical day when you are drinking?: 3 or 4 3. How often do you have six or more drinks on one occasion?: Never Total Score: 3 ARTURO-7 AMB Questionnaire ARTURO-7 Date ARTURO - 7 assessed: 01/20/24 Source: Developed by Drs. Harley Maloney, Ros Tadeo, Irwin Recinos and colleagues, with an educational sena from [employer]. Review of Systems Const Denies poor appetite and Denies weakness Eyes Denies no additional complaints ENT Reports Normal hearing present, Denies dizziness, Denies nasal congestion, Denies tinnitus and Denies sore throat Card Denies chest pain, Denies syncope, Denies rapid heart rate and Denies dyspnea Resp Denies cough and Denies dyspnea GI Denies change in stool character, Reports constipation, Denies diarrhea, Denies nausea and Denies vomiting Denies dysuria and Denies urinary frequency Neuro Reports Normal hearing present, Denies confusion, Denies dizziness, Denies syncope and Denies weakness Psych Denies confusion Physical exam (Primary Care) Vital Signs: Last Vital Signs Pulse 80 05/25/24 09:03 BP 128/76 05/25/24 09:03 Pulse Ox 98 05/25/24 09:03 Oxygen Delivery Method Room Air 05/25/24 09:03 BMI result Body Mass Index 38.8 Tobacco/Smoking Status: Tobacco use Status Tobacco use date assessed 02/23/24 05/25/24 09:11 Patient Tobacco Use Status Never used Tobacco 05/25/24 09:11 e-Cigarette/Vaping Use Never Used 05/25/24 09:11 PHQ-9: PHQ-9 Score PHQ-9: Total score 18 05/25/24 09:11 Depression Screening Interpretation: Negative Thrive Assessment: Date of Thrive Assessment Date Thrive assessed 05/25/24 05/25/24 09:11 Currently or been in a relationship where the following occur: No concerns reported Const General: No confusion Orientation/consciousness: No confusion HENMT Head: Yes normocephalic Ears: external ears normal and TM's normal bilaterally Face and sinus: Yes normal facial exam Mouth: moist mucous membranes Throat: Yes tonsils normal Eyes Conjunctivae: conjunctivae normal Pupils: Equal, round and reactive pupils present and Pupil accommodation reflex normal Direct Ophthalmoscopy: normal light reflex Neck Neck: No lymphadenopathy Thyroid: Thyroid normal Chest Chest palpation & inspection: normal inspection of the chest Resp Effort & Inspection: normal respiratory effort and no audible wheezes Auscultation: clear to auscultation bilaterally, no crackles, no wheezes and lung sounds not diminished Cardio Rate: regular rate Rhythm: regular rhythm Peripheral pulses: radial pulses present and dorsalis pedis present GI Palpation (GI): no masses Auscultation: normal bowel sounds and normoactive bowel sounds Rectal Exam - Male: Yes deferred Skin General skin exam: no rashes or lesions noted Rashes: no rashes Neuro General: No confusion Cranial nerves: Yes Equal, round and reactive pupils present and Yes Normal hearing present Cognition (Neuro): normal cognition Gait exam (Neuro): Normal gait present Motor exam (neuro): 5/5 motor strength present throughout Deep tendon reflexes (DTR's): Right brachioradialis reflex intensity grade: 2+, Left brachioradialis reflex intensity grade: 2+, Right patellar reflex intensity grade: 2+ and Left patellar reflex intensity grade: 2+ Extrem General: No edema Assessment and Plan Assessment & Plan (1) Annual physical exam: Code(s): Z00.00 - Encounter for general adult medical examination without abnormal findings Plan: Patient is advised to eat healthy, keep well hydrated, keep active and have adequate sleep. (2) Obstructive sleep apnea (adult) (pediatric): Comment: CPAP 04/2022 cannot tolerate CPAP Code(s): G47.33 - Obstructive sleep apnea (adult) (pediatric) Plan: Patient has had a meeting with the Neurology and has advised trial of mandibular device to help with obstructive sleep apnea (3) GERD (gastroesophageal reflux disease): Code(s): K21.9 - Gastro-esophageal reflux disease without esophagitis Plan: Avoid the foods that causes that usually spicy foods, tomato products, juices, coffee, soda and foods that your sensitive to. After eating do not lie down, allow 3-4 hours before in lie down. And keep the head of bed above 30 degrees to avoid the acid from going up. (4) Obesity (BMI 30-39.9): Code(s): E66.9 - Obesity, unspecified Plan: Diet and exercise (5) Generalized anxiety disorder: Comment: psychiatrist [place]- dr. Bradley Rogers Code(s): F41.1 - Generalized anxiety disorder Plan: Continue with counseling and therapy on sertraline 25 mg once a day (6) Impaired glucose tolerance: Code(s): R73.02 - Impaired glucose tolerance (oral) Plan: Decrease the amount of carbohydrate intake, pasta, bread, rice and potatoes are all sugar and that is aside from all the sweet stuff, remember that fruits are good but they are Sweet also. (7) Migraine with aura: Comment: Occassional migraine w/ aura- may see spots and has had right sided head numbness Code(s): G43.109 - Migraine with aura, not intractable, without status migrainosus Plan: Received neurology notes placed on rizatriptan as well as Ubrelvy and amitriptyline Orders: Orders Comprehensive Met. Panel Today R73.02 - Impaired glucose tolerance (oral) Thyroid Stimulating Hormone Today R73.02 - Impaired glucose tolerance (oral) Vitamin B12 and Folate Today R73.02 - Impaired glucose tolerance (oral) C Reactive Protein Today R73.02 - Impaired glucose tolerance (oral) Free T4 (Free Thyroxine) Today R73.02 - Impaired glucose tolerance (oral) Hemoglobin A1c Today R73.02 - Impaired glucose tolerance (oral) Complete Blood Count Auto Diff Today R73.02 - Impaired glucose tolerance (oral) Lipid Panel Today E78.00 - Pure hypercholesterolemia, unspecified, R73.02 - Impaired glucose tolerance (oral) Vitamin D 25-OH Total Today R73.02 - Impaired glucose tolerance (oral) Testosterone, Free/Total Today R73.02 - Impaired glucose tolerance (oral) Erythrocyte Sedimentation Rate Today R73.02 - Impaired glucose tolerance (oral) UA w Microscopic Today R73.02 - Impaired glucose tolerance (oral) Medications: Refilled albuterol sulfate 90 mcg/actuation 2 puffs inhalation Q6H PRN 6.7 grams 0RF shortness of breath or wheezing acyclovir 400 mg PO TID 5 days 15 tabs 2RF Coding Level of Care Code Est Pt Prev Care 18-39y(59760) Diagnoses Annual physical exam Z00.00 Obstructive sleep apnea (adult) (pediatric) G47.33 GERD (gastroesophageal reflux disease) K21.9 Obesity (BMI 30-39.9) E66.9 Generalized anxiety disorder F41.1 Impaired glucose tolerance R73.02 Migraine with aura G43.109
== END 2024-05-25 09:51 | disposition home or self-care (01) ==
PROVIDERS: PCP Internal Medicine; Visit Provider Internal Medicine
DX: Z00.00 Encounter for general adult medical examination without abnormal findings (principal); G47.33 Obstructive sleep apnea (adult) (pediatric); K21.9 Gastro-esophageal reflux disease without esophagitis; F41.1 Generalized anxiety disorder; R73.02 Impaired glucose tolerance (oral); G43.109 Migraine with aura, not intractable, without status migrainosus
CPT/HCPCS: 99395

== ENCOUNTER 2024-06-03 08:24 | Outpatient (REF) | payer BC, SELFPAY ==
[2024-06-03 08:35] LABS: MANUAL DIFF FLAG NO
[2024-06-03 09:01] LABS: Basophils Absolute Auto 0.1 X10*3/uL (0.0-0.2); Basophils Percent Auto 1.2 % (0-2); Eosinophils Absolute Auto 0.1 X10*3/uL (0.0-0.4); Eosinophils Percent Auto 2.2 % (0-4); Hematocrit 44.5 % (42.0-52.0); Hemoglobin 15.1 g/dl (14.0-18.0); Imm Gran Abs Auto 0.02 X10*3/uL (0.00-0.03); Imm Gran Pct Auto 0.4 % (0.0-0.4); Lymphocytes Absolute Auto 1.8 X10*3/uL (1.2-4.9); Lymphocytes Percent Auto 35.4 % (20-40); Mean Corpuscular HGB Conc 33.9 g/dl (31.0-36.0); Mean Corpuscular Hemoglobin 27.1 pg (27.0-33.0); Mean Corpuscular Volume 79.7 fL (80.0-98.0); Mean Platelet Volume 9.4 fL (9.4-12.4); Monocytes Absolute Auto 0.4 X10*3/uL (0.1-1.2); Monocytes Percent Auto 8.1 % (2-11); Neutrophils Absolute Auto 2.7 x10*3/uL (2.0-8.3); Neutrophils Percent Auto 52.7 % (45-73); Platelet Count 274 X10*3/uL (160-400); Red Blood Count 5.58 X10*6/uL (4.60-5.80); White Blood Count 5.1 X10*3/uL (4.8-10.8)
[2024-06-03 09:06] LABS: Estimated Average Glucose 103 mg/dL; Hemoglobin A1c % 5.2 % (<6.0)
[2024-06-03 09:35] LABS: Alanine Aminotransferase 27 U/L (0-40); Albumin Level 4.6 g/dL (3.5-5.0); Alkaline Phosphatase 48 U/L (39-117); Anion Gap 13 (12-20); Aspartate Amino Transferase 21 U/L (5-37); Bilirubin Total 0.7 mg/dL (0.0-1.0); Blood Urea Nitrogen 14 mg/dL (9-16); C Reactive Protein 0.23 mg/dL (< or = 0.50); Calcium 9.7 mg/dL (8.4-10.2); Carbon Dioxide 25 mmol/L (22-29); Chloride 107 mmol/L (96-108); Cholesterol 172 mg/dL (<200); Estimated Glomerular Filt Rate > 60; Glucose Random 98 mg/dL (60-115); HDL Cholesterol 37 mg/dL (>40); LDL Cholesterol Calculated 114 mg/dL (<100); Potassium 4.2 mmol/L (3.3-5.1); Sodium 141 mmol/L (135-145); Total Protein 7.7 g/dL (6.5-8.0); Triglycerides 109 mg/dL (<150)
[2024-06-03 09:38] LABS: Appearance Urine Clear; Color Urine Yellow; Glucose Urine UA Negative (Negative); Leukocyte Esterase Urine Negative (Negative); Nitrite Urine Negative (Negative); PH 5.5 (5.0-9.0); Specific Gravity - Urine 1.025 (1.005-1.025); Urine Blood Negative (Negative); Urine Ketones Negative (Negative); Urine Protein Negative (Neg-Trace)
[2024-06-03 09:42] LABS: Erythrocyte Sedimentation Rate 1 MM/HR (0-15)
[2024-06-03 09:43] LABS: Bacteria Urine None Seen (None Seen); Hyaline Casts Urine 0-2 /LPF (0-2); RBC Urine 0-2 /HPF (0-2); Squamous Epithelial Cell Urine 0-2 /HPF (0-2); WBC Urine 0-5 /HPF (0-5)
[2024-06-03 09:53] LABS: Free T4 (Free Thyroxine) 0.92 ng/dL (0.71-1.85); Thyroid Stimulating Hormone 3.12 uIU/mL (0.32-4.0); Vitamin D 25-OH Total 36.2 ng/mL (>30)
[2024-06-03 11:27] LABS: Folate 10.3 ng/mL (> or = 4.0)
[2024-06-03 11:41] LABS: Vitamin B12 513 pg/mL (200-900)
[2024-06-07 21:58] LABS: Testosterone, Total 439 ng/dL (250-1100)
== END 2024-06-03 08:25 | disposition home or self-care (01) ==
LOC: HO.LAB 08:24
PROVIDERS: PCP Internal Medicine; Visit Provider Internal Medicine
DX: R73.02 Impaired glucose tolerance (oral) (principal); E78.00 Pure hypercholesterolemia, unspecified
CPT/HCPCS: 36415; 80053; 80061; 81001; 82306; 82607; 82746; 83036; 84402; 84403; 84439; 84443; 85025; 85652; 86140

== ENCOUNTER 2024-07-05 15:51 | Outpatient (AMB) | payer OTHER, BC, SELFPAY ==
[2024-07-05 15:58] VITALS: BP 128/76; PULSE 93; O2SAT 96; BMI 38.8
--- NOTE | 2024-07-05 15:58 | MHC.PC.OV ---
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 Allergies No Known Allergies Allergy (Verified 07/05/24 15:58) Medication List - Last Reconciled 07/05/24 by Mirian Salinas PA-C acetaminophen 1,000 mg (2 x 500 mg) PO Q6H PRN acyclovir 400 mg PO TID 5 days albuterol sulfate 90 mcg/actuation 2 puffs inhalation Q6H PRN amitriptyline 10 - 20 mg (1 - 2 x 10 mg) PO BEDTIME 30 days famotidine 20 mg PO BEDTIME rizatriptan 5 - 10 mg (0.5 - 1 x 10 mg) PO Q2H PRN 21 days scopolamine base (Transderm-Scop) 1 patch transdermal Q3D PRN sertraline 25 mg PO DAILY ubrogepant (Ubrelvy) 50 - 100 mg (0.5 - 1 x 100 mg) PO ONCE PRN 30 days MDD 2 tabs Tobacco use date assessed: 02/23/24 Dental Screening Dental Screen Date: 05/25/24 Did you have a dental visit in the last 12 months?: Yes Did you have a dental problem in the last 6 months where you did not have access to dental care?: No Was dental information given to patient?: Patient has dentist HPI Work Injury - Hand pain HPI Details 33-year-old male with past medical history of PTSD, generalized anxiety disorder, GERD, obstructive sleep apnea, impaired glucose tolerance coming in for acute problem. Patient had an injury at work on Friday07/03/2024 while responding to an alert at work. He was brought to [facility] ER for left ankle pain and x-ray was negative and diagnosed with ankle sprain. Today he mentioned he is still having pain in the top of the foot as well as swelling however bruising has gone down. He does mentioned the pain seems like it is worsening. [facility] Medical History (Updated 07/05/24 @ 16:53 by Mirian Salinas PA-C) Vasectomy evaluation Anxiety about health Laceration of left thumb Headache Chronic migraine without aura COVID-19 virus infection Viral infection Ear pain, right Otitis media, right Daytime sleepiness Pharyngitis Otitis media Upper respiratory tract infection SOB (shortness of breath) Left carotid bruit Chest pain Puncture wound of finger of left hand IBS (irritable bowel syndrome) Lumbar disc disease Plantar fasciitis, bilateral Sciatic leg pain Tinnitus PTSD (post-traumatic stress disorder) Generalized anxiety disorder Obesity (BMI 30-39.9) Surgical History H/O vasectomy Family History Mother No problems noted. Father No problems noted. Daughter No problems noted. Son No problems noted. Daughter No problems noted. Brother No problems noted. Sister No problems noted. Sister No problems noted. Other Lupus Mental health disorder Social History (Updated 05/25/24 @ 09:27 by Rosamaria Sma MD) Housing: House Alcohol intake: current Comment: 3x a week 2 drinks Patient Tobacco Use Status: Never used Tobacco e-Cigarette/Vaping Use: Never Used Second Hand Smoke Exposure: No service: Yes Current occupational status: employed Cognitive needs: No Hearing needs: No Vision needs: Yes Questionnaire Thrive Questionnaire Date Thrive assessed: 05/25/24 AUDIT C Alcohol Use Questionnaire (AUDIT-C) 1. How often do you have a drink containing alcohol?: 2-4 times a month 2. How many drinks containing alcohol do you have on a typical day when you are drinking?: 3 or 4 3. How often do you have six or more drinks on one occasion?: Never Total Score: 3 ARTURO-7 AMB Questionnaire ARTURO-7 Date ARTURO - 7 assessed: 01/20/24 Source: Developed by Drs. Harley Maloney, Ros Tadeo, Irwin Recinos and colleagues, with an educational sena from [employer] Review of Systems Const Denies body aches, Denies chills and Denies fever(s) Eyes Reports no additional complaints ENT Reports no additional complaints Card Reports no additional complaints Resp Reports no additional complaints GI Reports no additional complaints Reports no additional complaints Musc Details: Left ankle pain and swelling with decreased mobility and pain with ambulation Reports abnormal gait Skin/Breast Reports system reviewed and no additional complaints, except as documented Neuro Reports no additional complaints and Reports abnormal gait Physical exam (Primary Care) Vital Signs: Last Vital Signs Pulse 93 07/05/24 15:58 BP 128/76 07/05/24 15:58 Pulse Ox 96 07/05/24 15:58 Oxygen Delivery Method Room Air 07/05/24 15:58 BMI result Body Mass Index 38.8 Tobacco/Smoking Status: Tobacco use Status Tobacco use date assessed 02/23/24 07/05/24 15:59 Patient Tobacco Use Status Never used Tobacco 07/05/24 15:59 e-Cigarette/Vaping Use Never Used 07/05/24 15:59 Thrive Assessment: Date of Thrive Assessment Date Thrive assessed 05/25/24 07/05/24 15:59 Const General: cooperative, healthy appearing, comfortable and no acute distress Orientation/consciousness: patient oriented x3 HENMT Head: Yes normocephalic Ears: hearing grossly normal bilaterally General nose exam: Normal external nose present Eyes General: appearance normal, both eyes and all related structures Conjunctivae: conjunctivae normal Neck Neck: Yes full ROM and Yes no lymphadenopathy Resp Effort & Inspection: normal respiratory effort Auscultation: clear to auscultation bilaterally, no crackles, no rales, no rhonchi and no wheezes Cardio Rate: regular rate Rhythm: regular rhythm Skin General skin exam: no rashes or lesions noted Neuro General: patient oriented x3 Gait exam (Neuro): Normal gait present Extrem Other: Left ankle swelling with tenderness to palpation over dorsal aspect of the foot and lateral side of the ankle. Strength, sensation, pulses intact bilaterally. No laxity appreciated on exam. General: Yes normal to inspection, Yes full ROM and No edema Psych Affect: normal affect Attitude: cooperative Insight: Good insight present (Psych) Judgement: Good judgement present (Psych) Assessment and Plan Assessment & Plan (1) Ankle sprain: Code(s): S93.409A - Sprain of unspecified ligament of unspecified ankle, initial encounter Plan: Discussed with patient that sprains may take several months to heal completely. He may use assistive devices such as canes or crutches for comfort and weightbear as tolerated. We discussed going back to work with light duty which is near impossible with his current position. Patient will remain out of work for 2 weeks until we can re-evaluate after he has been evaluated by Physical therapy. Referral to Physical therapy sent as this is the mainstay treatment for ankle sprains. Muscle relaxer sent for pain at night. Continue using Tylenol as needed for pain and avoid the use NSAIDs. We will follow up in 2 weeks for re-evaluation. Plan This note was constructed using voice recognition software. While every effort has been made to ensure accuracy and internal combustion engine assembler, still areas may have been included sometimes these areas may affect the content or meeting of the given symptoms. Total time spent caring for the patient today was 30 minutes. This includes time spent before the visit reviewing the chart, time spent during the visit, and time spent after the visit and documentation. Orders: Orders PT Evaluation and Treatment Today S96.912A - Strain of unspecified muscle and tendon at ankle and foot level, left foot, initial encounter Medications: New cyclobenzaprine 5 mg PO BEDTIME 20 tabs 0RF Coding Level of Care Code Est Pt Level 4 (75814) Diagnoses Ankle sprain S93.409A
== END 2024-07-05 16:37 | disposition home or self-care (01) ==
PROVIDERS: PCP Internal Medicine
DX: S93.409A Sprain of unspecified ligament of unspecified ankle, initial encounter (principal)
CPT/HCPCS: 99214

== ENCOUNTER 2024-07-20 11:00 | Outpatient (AMB) | payer BC, SELFPAY ==
[2024-07-20 11:01] VITALS: BP 128/70; PULSE 96; BMI 39.3
--- NOTE | 2024-07-20 11:01 | A.OFFPC_ITS ---
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 Patient states he is still having ankle stiffness and pain along with swelling. The pain will wax and wane throughout the day but does get worse at night. He el evates the foot and will take Tylenol and Ibuprofen as he needs too. He is scheduled to see physical therapy on August 03. He does also mentioned that sometimes when he is walking his ankle we will give out from underneath him. [facility] Medical History Vasectomy evaluation Anxiety about health Laceration of left thumb Headache Chronic migraine without aura COVID-19 virus infection Viral infection Ear pain, right Otitis media, right Daytime sleepiness Pharyngitis Otitis media Upper respiratory tract infection SOB (shortness of breath) Left carotid bruit Chest pain Puncture wound of finger of left hand IBS (irritable bowel syndrome) Lumbar disc disease Plantar fasciitis, bilateral Sciatic leg pain Tinnitus PTSD (post-traumatic stress disorder) Generalized anxiety disorder Obesity (BMI 30-39.9) Surgical History H/O vasectomy Family History Mother No problems noted. Father No problems noted. Daughter No problems noted. Son No problems noted. Daughter No problems noted. Brother No problems noted. Sister No problems noted. Sister No problems noted. Other Lupus Mental health disorder Social History Housing: House Alcohol intake: current Comment: 3x a week 2 drinks Patient Tobacco Use Status: Never used Tobacco e-Cigarette/Vaping Use: Never Used Second Hand Smoke Exposure: No service: Yes Current occupational status: employed Cognitive needs: No Hearing needs: No Vision needs: Yes Questionnaire Thrive Questionnaire Date Thrive assessed: 05/25/24 AUDIT C Alcohol Use Questionnaire (AUDIT-C) 1. How often do you have a drink containing alcohol?: 2-4 times a month 2. How many drinks containing alcohol do you have on a typical day when you are drinking?: 3 or 4 3. How often do you have six or more drinks on one occasion?: Never Total Score: 3 ARTURO-7 AMB Questionnaire ARTURO-7 Date ARTURO - 7 assessed: 01/20/24 Source: Developed by Drs. Harley Maloney, Ros Tadeo, Irwin Recinos and colleagues, with an educational sena from [employer]. Review of Systems Const Denies body aches, Denies chills and Denies fever(s) Eyes Reports no additional complaints ENT Reports no additional complaints Card Denies chest pain, Denies syncope and Denies lightheadedness GI Reports no additional complaints Reports no additional complaints Musc Reports as per HPI and Reports abnormal gait Skin/Breast Reports system reviewed and no additional complaints, except as documented Neuro Reports abnormal gait and Denies syncope Psych Reports no additional complaints Physical exam (Primary Care) Vital Signs: Last Vital Signs Pulse 96 07/20/24 11:01 BP 128/70 07/20/24 11:01 Oxygen Delivery Method Room Air 07/20/24 11:01 BMI result Body Mass Index 39.3 Tobacco/Smoking Status: Tobacco use Status Tobacco use date assessed 02/23/24 07/05/24 15:59 Patient Tobacco Use Status Never used Tobacco 07/05/24 15:59 e-Cigarette/Vaping Use Never Used 07/05/24 15:59 Thrive Assessment: Date of Thrive Assessment Date Thrive assessed 05/25/24 07/05/24 15:59 Const General: cooperative, healthy appearing, comfortable and no acute distress Orientation/consciousness: patient oriented x3 HENMT Head: Yes normocephalic Ears: hearing grossly normal bilaterally General nose exam: Normal external nose present Eyes General: appearance normal, both eyes and all related structures Conjunctivae: conjunctivae normal Neck Neck: Yes full ROM and Yes no lymphadenopathy Resp Effort & Inspection: normal respiratory effort Cardio Rate: regular rate Rhythm: regular rhythm Skin General skin exam: no rashes or lesions noted Neuro General: patient oriented x3 Gait exam (Neuro): Normal gait present Extrem Other: Pain with internal rotation of left ankle. Pain to palpation over dorsal aspect of the left foot with intact strength, sensation, and pulses General: Yes normal to inspection, Yes full ROM and No edema Psych Affect: normal affect Attitude: cooperative Insight: Good insight present (Psych) Judgement: Good judgement present (Psych) Assessment and Plan Assessment & Plan (1) Ankle sprain: Code(s): S93.409A - Sprain of unspecified ligament of unspecified ankle, initial encounter Plan: Patient is scheduled for physical therapy August 03. Considering patient is still having pain with weight-bearing would advise to work light duty or be excused from work if this is not possible until after physical therapy evaluation. Follow up in 3 weeks for re-evaluation after he has been to physical therapy and consider an orthopedics referral pain does not improve. Discussed with patient the importance of working on [id number] exercises and advised to use Tylenol or ibuprofen for pain. Continue to ice and elevate the leg when there swelling. May use an ankle brace for support. Plan This note was constructed using voice recognition software. While every effort has been made to ensure accuracy and smoke chaser, still areas may have been included sometimes these areas may affect the content or meeting of the given symptoms. Total time spent caring for the patient today was 30 minutes. This includes time spent before the visit reviewing the chart, time spent during the visit, and time spent after the visit and documentation. Coding Level of Care Code Est Pt Level 4 (73869) Diagnoses Ankle sprain S93.409A
== END 2024-07-20 11:41 | disposition home or self-care (01) ==
PROVIDERS: PCP Internal Medicine
DX: S93.409A Sprain of unspecified ligament of unspecified ankle, initial encounter (principal)
CPT/HCPCS: 99214

== ENCOUNTER 2024-08-12 09:35 | Outpatient (AMB) | payer OTHER, BC, SELFPAY ==
--- NOTE | 2024-08-12 09:37 | MHC.PC.OV ---
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 Patient was initially scheduled for physical therapy on 08/03/2024 however was told by workman's comp that he would need to find a provider as well as physical therapy provider in [place] for further management as our office in physical therapy was not covered in [facility]. He was seen 2 days ago by a different provider in [place] and referred to orthopedics and physical therapy through their office. He continues to pain in the left ankle and cramping primarily in the morning which does mildly improved throughout the day. He does mentioned with certain motions he will get sharp stabbing pains in the top of the foot and in the ankle. He also mentions he does not feel stable on the ankle but denies any instances of the ankle giving out. [facility] Medical History Vasectomy evaluation Anxiety about health Laceration of left thumb Headache Chronic migraine without aura COVID-19 virus infection Viral infection Ear pain, right Otitis media, right Daytime sleepiness Pharyngitis Otitis media Upper respiratory tract infection SOB (shortness of breath) Left carotid bruit Chest pain Puncture wound of finger of left hand IBS (irritable bowel syndrome) Lumbar disc disease Plantar fasciitis, bilateral Sciatic leg pain Tinnitus PTSD (post-traumatic stress disorder) Generalized anxiety disorder Obesity (BMI 30-39.9) Surgical History H/O vasectomy Family History Mother No problems noted. Father No problems noted. Daughter No problems noted. Son No problems noted. Daughter No problems noted. Brother No problems noted. Sister No problems noted. Sister No problems noted. Other Lupus Mental health disorder Social History Housing: House Alcohol intake: current Comment: 3x a week 2 drinks Patient Tobacco Use Status: Never used Tobacco e-Cigarette/Vaping Use: Never Used Second Hand Smoke Exposure: No service: Yes Current occupational status: employed Cognitive needs: No Hearing needs: No Vision needs: Yes Questionnaire Thrive Questionnaire Date Thrive assessed: 05/25/24 Are you currently unemployed and looking for a job?: I choose not to answer this question AUDIT C Alcohol Use Questionnaire (AUDIT-C) 1. How often do you have a drink containing alcohol?: 2-4 times a month 2. How many drinks containing alcohol do you have on a typical day when you are drinking?: 3 or 4 3. How often do you have six or more drinks on one occasion?: Never Total Score: 3 ARTURO-7 AMB Questionnaire ARTURO-7 Date ARTURO - 7 assessed: 01/20/24 Source: Developed by Drs. Harley Maloney, Ros Tadeo, Irwin Recinos and colleagues, with an educational sena from [employer]. Review of Systems Const Denies chills and Denies fever(s) Card Reports no additional complaints Resp Reports no additional complaints GI Reports no additional complaints Musc Details: Left ankle and top of the foot pain primarily with ambulation Physical exam (Primary Care) Vital Signs: Last Vital Signs Pulse 78 08/12/24 09:39 BP 122/76 08/12/24 09:39 Pulse Ox 98 08/12/24 09:39 Oxygen Delivery Method Room Air 08/12/24 09:39 BMI result Body Mass Index 38.8 Tobacco/Smoking Status: Tobacco use Status Tobacco use date assessed 02/23/24 08/12/24 09:38 Patient Tobacco Use Status Never used Tobacco 08/12/24 09:38 e-Cigarette/Vaping Use Never Used 08/12/24 09:38 Thrive Assessment: Date of Thrive Assessment Date Thrive assessed 05/25/24 08/12/24 09:38 Const General: cooperative, healthy appearing, comfortable and no acute distress Orientation/consciousness: patient oriented x3 HENMT Head: Yes normocephalic Ears: hearing grossly normal bilaterally General nose exam: Normal external nose present Eyes General: appearance normal, both eyes and all related structures Conjunctivae: conjunctivae normal Neck Neck: Yes full ROM and Yes no lymphadenopathy Resp Effort & Inspection: normal respiratory effort Auscultation: clear to auscultation bilaterally, no crackles, no rales, no rhonchi and no wheezes Cardio Rate: regular rate Rhythm: regular rhythm Skin General skin exam: no rashes or lesions noted Neuro General: patient oriented x3 Gait exam (Neuro): Normal gait present Extrem Other: No tenderness to palpation over ankle or foot and no laxity of the ankle. Limited active range of motion. General: Yes normal to inspection, Yes full ROM and No edema Psych Affect: normal affect Attitude: cooperative Insight: Good insight present (Psych) Judgement: Good judgement present (Psych) Assessment and Plan Assessment & Plan (1) Ankle sprain: Code(s): S93.409A - Sprain of unspecified ligament of unspecified ankle, initial encounter Plan: Care of this problem will be transferred to his new provider in [place] along with management of physical therapy and orthopedics. Did advise patient to keep me posted reach out if he has any issues obtaining physical therapy. Note was provided to keep him out of work until he sees the [place] provider again at which point she will take over a workman's comp issues. Still recommend physical therapy and pain management Tylenol and ibuprofen. Advised patient to do light stretching and weightbear as tolerated at home. Plan This note was constructed using voice recognition software. While every effort has been made to ensure accuracy and mud logger, still areas may have been included sometimes these areas may affect the content or meeting of the given symptoms. Total time spent caring for the patient today was 30 minutes. This includes time spent before the visit reviewing the chart, time spent during the visit, and time spent after the visit and documentation. Coding Level of Care Code Est Pt Level 3 (43777) Diagnoses Ankle sprain S93.409A
[2024-08-12 09:39] VITALS: BP 122/76; PULSE 78; O2SAT 98; BMI 38.8
== END 2024-08-12 10:15 | disposition home or self-care (01) ==
PROVIDERS: PCP Internal Medicine
DX: S93.409D Sprain of unspecified ligament of unspecified ankle, subsequent encounter (principal); Z04.2 Encounter for examination and observation following work accident

== ENCOUNTER → 2024-08-12 09:35 | Outpatient (BNVA) | payer OTHER, BC, SELFPAY | PROVIDERS: PCP Internal Medicine | DX: S93.402D Sprain of unspecified ligament of left ankle, subsequent encounter (principal); X58.XXXD Exposure to other specified factors, subsequent encounter | CPT/HCPCS: 99212 ==

== ENCOUNTER 2024-11-05 09:35 | Outpatient (AMB) | payer BC, SELFPAY ==
[2024-11-05 09:36] VITALS: BMI 39.5
--- NOTE | 2024-11-05 09:36 | A.OFFVIS_ITS ---
Vital Signs 11/05/24 09:36 Height 6 ft Weight 291 lb BMI 39.5 Intake Visit Reasons: 6 month F/U Intake Note: patient presents for 6 month follow up. patient still having migraines still not sleeping well. Allergies No Known Allergies Allergy (Verified 11/05/24 09:39) Medication List - Last Reconciled 11/05/24 by Jessy Hoffmann PA-C acetaminophen 1,000 mg (2 x 500 mg) PO Q6H PRN acyclovir 400 mg PO TID 5 days albuterol sulfate 90 mcg/actuation 2 puffs inhalation Q6H PRN amitriptyline 10 - 20 mg (1 - 2 x 10 mg) PO BEDTIME 30 days cyclobenzaprine 5 mg PO BEDTIME famotidine 20 mg PO BEDTIME rizatriptan 5 - 10 mg (0.5 - 1 x 10 mg) PO Q2H PRN 21 days scopolamine base (Transderm-Scop) 1 patch transdermal Q3D PRN sertraline 25 mg PO DAILY ubrogepant (Ubrelvy) 50 - 100 mg (0.5 - 1 x 100 mg) PO ONCE PRN 30 days MDD 2 tabs HPI Comments Details: 33-yr-old male presents for f/u visit for headaches. Pt denies any significant interval medical changes. Pt is having 3 headaches per week and takes 800mg Ibuprofen PRN along with the Rizatriptan at the onse of migraine and it is well controlled, usually aborts immediately. The Ubrelvy has helped with the intensity of the headaches as well. He is taking his Amitriptyline for help with sleep. He falls asleep easily but wakes up at 2am and stays awake until 5am, ruminating about work. 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 Mood is normal , gets into his head at times, was seeing a therapist, now seeing a marriage counselor 1x a week and a psychiatrist at the [facility]. BMI, is 39, refused weight management at this time, will focus on lifestyle and diet changes first. He can still feel groggy in the am, he has mild CHARLES followed by the [facility]. He did not tolerate PAP tx, but the [facility] recently fit him for a mandibular device, and will send him for a second sleep study, he wears it nightly, yet has not noticed a change in the quality of his sleep. His vision is good, wears glasses/ contacts. He drinks sparkling water and 2-3 cups of coffee daily, alcohol socially, doesn't smoke or vape. He completed 8 years of active service in the [employer]. Baseline headache characteristics: Aura: Rarely- sees random spots coming and going. Severe, Starts with eye discomfort (a funny feeling). Holocranial or right sided throbbing pain a/w Photophobia, blurry vision, some photophonia, allodynia, nausea, some dizziness, brain fog, fatigued, worsening maribell tinnitus, activity intolerance. *patient was seen by myself with TINA Staley. [facility] Medical History Vasectomy evaluation Anxiety about health Laceration of left thumb Headache Chronic migraine without aura COVID-19 virus infection Viral infection Ear pain, right Otitis media, right Daytime sleepiness Pharyngitis Otitis media Upper respiratory tract infection SOB (shortness of breath) Left carotid bruit Chest pain Puncture wound of finger of left hand IBS (irritable bowel syndrome) Lumbar disc disease Plantar fasciitis, bilateral Sciatic leg pain Tinnitus PTSD (post-traumatic stress disorder) Generalized anxiety disorder Obesity (BMI 30-39.9) Surgical History H/O vasectomy Family History Mother No problems noted. Father No problems noted. Daughter No problems noted. Son No problems noted. Daughter No problems noted. Brother No problems noted. Sister No problems noted. Sister No problems noted. Other Lupus Mental health disorder Social History Housing: House Alcohol intake: current Comment: 3x a week 2 drinks Patient Tobacco Use Status: Never used Tobacco e-Cigarette/Vaping Use: Never Used Second Hand Smoke Exposure: No service: Yes Current occupational status: employed Cognitive needs: No Hearing needs: No Vision needs: Yes Review of Systems Const All systems reviewed & are unremarkable except as noted in HPI and below Physical Exam Vital Signs: BMI result Body Mass Index 39.5 Const General: cooperative, comfortable and no acute distress Nutritional Appearance: average body habitus and obese (BMI 39) Orientation/consciousness: patient oriented x3 Eyes Pupils: Equal, round and reactive pupils present Neck Neck: Yes full ROM and Yes supple Resp Effort & Inspection: normal respiratory effort and able to speak in complete sentences Neuro General: patient oriented x3 and moves all extremities Cranial nerves: Yes CN's II-XII intact bilaterally, Yes Facial sensation intact/ muscles of mastication intact, Yes Equal, round and reactive pupils present, Yes Normal accommodation reflex present, Yes Bilaterally intact EOM present, Yes Nystagmus not present, Yes Normal facial strength present, Yes Midline tongue present, Yes Ability to bilaterally rotate head present and Yes Ability to bilaterally elevate shoulders present Gait exam (Neuro): Normal gait present Motor exam (neuro): 5/5 motor strength present throughout and Normal motor muscle tone present throughout Deep tendon reflexes (DTR's): Right triceps reflex intensity grade: 2+, Left triceps reflex intensity grade: 2+, Rt Biceps (C5, C6): 2+, Left biceps reflex intensity grade: 2+, Right brachioradialis reflex intensity grade: 2+, Left br achioradialis reflex intensity grade: 2+, Right patellar reflex intensity grade: 2+ and Left patellar reflex intensity grade: 2+ Coordination: [id number] test normal Psych Appearance: grossly normal Speech and movement: Normal speech and movement present Affect: normal affect and Sad affect present Attitude: cooperative Thought process: Normal thought process present Thought content: Normal thought content present Insight: Good insight present (Psych) Judgement: Good judgement present (Psych) Assessment & Plan Assessment & Plan (1) Migraine with aura: Comment: Occassional migraine w/ aura- may see spots and has had right sided head numbness Code(s): G43.109 - Migraine with aura, not intractable, without status migrainosus Category: Medical Qualifiers: Status migrainosus presence: without status migrainosus Intractability: intractable Qualified Code(s): G43.119 - Migraine with aura, intractable, without status migrainosus (2) Obstructive sleep apnea (adult) (pediatric): Comment: CPAP 04/2022 cannot tolerate CPAP Code(s): G47.33 - Obstructive sleep apnea (adult) (pediatric) Category: Medical Plan Migraine Management: Continue to optimize good self-care, including but not limited to maintaining a healthy diet, adequate fluid intake, adequate sleep, and engaging in regular physical activity. Track headaches, using a migraine diary, or kate migraine david . May try blue light filtering glasses, green glasses, green light therapy.. Sleep disturbances. Concur w/ trying mandibulr device for tx of CHARLES- if daytime tiredness does not imrpove, consider trying alternate to Amitriptyline. For acute headache treatment: Discussed importance of taking acute medications at the first sign of headache, however stressed importance of avoiding acute medication overuse. Pt advised to carry acute meds w/ him- use a morrow ring pillbox or carry a backpack w/ him. Continue Rizatripatn 10mg at onset of migraine, may repeat in 2 hrs (max 2 tabs per day or 6 tabs per week). May take with OTC Tylenol 650mg q 4 hours, Ibuprofen 600mg q 6 hours, or Naproxen 440mg q 12 hrs prn. Resume Ubrogepant (Ubrelvy) 100mg tab, 1/2 - 1 tab (50-100mg) at onset of headache, may repeat in 2 hours. Max of 2 tabs (200mg) per 24 hours. May adjunct with rizatriptan, or OTC Tylenol 650mg q 4 hours, Ibuprofen 600mg q 6 hours, or Naproxen 440mg q 12 hrs prn. Previous acute migraine medication trials: Sumatriptan- caused neck/facial numbness. Eletriptan- ineffective. Acute migraine medication contraindications: None at this time. ? For headache prevention medication: Continue Amitriptyline 10-20mg qhs. Previous migraine prevention medication trials: Propranolol 10mg bid x's 8 wks- ineffective. Migraine prevention medication contraindications: Would not increase Propranolol further d/t SOBOE. ? Again reviewed benefits of neuromodulation devices for acute and preventive treatment of migraine. Gamma Core also has good evidence for treatment of PTSD in - he will consider. As pt is a , we can request coverage for Gamma Core or Nerivio through the [facility]. Pt to follow-up in 6 months or sooner as needed. Medications: Refilled rizatriptan May take w/ Ubrelvy. Max 2 tabs per day or 6 tabs per week 5 - 10 mg (0.5 - 1 x 10 mg) PO Q2H 21 days PRN 14 tabs 6RF migraine headache ubrogepant (Ubrelvy) take at onset of migraine, may repeat in 2hrs (may take w/ Ibuprofen and/or Rizatriptan) 50 - 100 mg (0.5 - 1 x 100 mg) PO ONCE 30 days PRN 16 tabs 6RF migraine headache MDD 2 tabs Coding Level of Care Code Est Pt Level 4 (38860) Diagnoses Intractable migraine with aura without status migrainosus G43.119 Status migrainosus presence: without status migrainosus Intractability: intractable Obstructive sleep apnea (adult) (pediatric) G47.33 Time Spent (min) 45 Comment Migraines better, sleep improved.
--- OUTSIDE RECORDS SUMMARY | 2024-11-05 09:36 | XMS_ITS | Encounter Summary ---
Author Name [facility] [place] [facility] [place] [facility] [place] Address [address] [place] [address] Support Name Relationship Address Phone TIFFANY LEIGHTON Next of Kin [address] [place] [address] TIFFANY LEIGHTON Emergency Contact [address] [place] [address] Care Team Providers Care Broadcast Engineer Name Role Phone YVONNE ESTEBAN Primary Care Provider Unava ilable Insurance Providers: All historical and current Section Date Range: From patient's date of to the date document was created. This section includes the names of all active insurance providers for the patient. Insurance Provider Type of Coverage Plan Name Start of Policy Coverage End of Policy Coverage Group Number Member ID Insurance Provider's Telephone Number Policy Gloria's Name Patient's Relationship to Policy Gloria JULIANNA BCBS OF [place] POINT OF [facility]ICE [facility] DE[facility] Aug 17, 2020 [id number] ALLEN,CAR LOS PATIENT BCBS [place] (BLUE CARD) PREFERRED PROVIDER ORGANIZAT ION (PPO) ST [facility] DEPT OF [facility] Aug 17, 2020 [id number] [phone] ALLEN,CAR LOS PATIENT [facility] Aug 17, 2020 [id number] [phone] ALLEN,CAR LOS PATIENT [facility] Aug 17, 2020 [id number] ALLEN,CAR LOS PATIENT Selected Encounter This section includes the information on record at [place] for the Encounter. Date/Time Encounter Type Encounter Description Reason Provider Source Dec 18, 2023 08:45 AM Outpatient Encounter TELEPHONE MH ICD-10-CM F43.12 Post-traumati c stress disorder, chronic ANTHONY GABRIEL Katie Encounter Template Text not used by [place] Assessments - Encounter Diagnoses This section includes the primary and secondary diagnoses documented for the Encounter. Date/Time Primary/Secondary Diagnosis Diagnosis Name Provider Source Dec 18, 2023 08:45 AM PRIMARY Post-traumatic stress disorder, chronic MIGUELITO GABRIEL Plan of Treatment: Future Appointments (+ 6 months) and Future Tests (+/- 45 days) The Plan of Treatment section includes future care activities for the patient from all [place] [facility] This section includes future appointments and future orders which are active, pending or scheduled. Future Appointments This section includes appointments that were scheduled to occur 6 months from the date of the Encounter, up to a maximum of 20 appointments. The data comes from all [place] treatment facilities. Appointment Date/Time Appointment Type Appointme nt Facility Name Feb 23, 2024 01:00 PM AMBULATORY - NONE [facility] March 29, 2024 03:00 PM AMBULATORY - PSYCHIATRY [facility] April 01, 2024 04:00 PM AMBULATORY - PSYCHIATRY [facility] Apr 26, 2024 09:30 AM AMBULATORY NONE [facility] Jun 02, 2024 09:30 AM AMBULATORY NONE [facility] Social History: Smoking Status (Most current) and Tobacco Use (All prior to encounter date) This section includes the most current, and the historical, smoking and tobacco- related health factors from the [place] facility where the Encounter took place. Current Smoking Status This section includes the most current smoking, or tobacco-related health factor, from the [place] facility where the Encounter took place. Date/Time Current Smoking Status Comment Mayra olivarez Nov 20, 2022 01:00 PM [place]-TOBACCO NEVER USED [facility] Tobacco Use History This section includes a history of the smoking, or tobacco-related health factors, that were collected on or before the date of the Encounter. The data comes from the [place] facility where the Encounter took place. Date/Time Smoking Status/Tobacco Use Comment Megan acreji Nov 26, 2021 11:30 AM [place]-TOBAC[place] NEVER USED [facility] Encounter Notes: All associated encounter notes This section contains the clinical notes associated to the Encounter. Date/Time Encounter Note(s) Provider Source Dec 18, 2023 02:58 PM ADDENDUM: LOCAL TITLE: Addendum STANDARD TITLE: ADDENDUM DATE OF NOTE: DEC 18, 2023@14:58:08 ENTRY DATE: DEC 18, 2023@14:58:08 AUTHOR: MIGUELITO GABRIEL COSIGNER: URGENCY: STATUS: COMPLETED Will forward to AMSA's: Please see return to clinic order And Please cancel the [facility] appointment for today, patient requested change to phone encounter, which I already created /es/ MIGUELITO GABRIEL MD STAFF PSYCHIATRIST Signed: 12/18/2023 14:58 Receipt Acknowledged By: 12/18/2023 15:20 /mercedes/ Teagan Mccarthy ADVANCED TIMBER SELECTOR --- Original Document --- 12/18/23 TELEPHONE NOTE/MENTAL HEALTH: Telephone note 11-20 min for encounter, pt agrees to phone encounter (I called patient when he was not on [facility]) chart reviewed see my 05/26/20 note for more hx Patient presents as relatively stable. Reports improvement in depression and PTSD symptoms with low-dose Zoloft, but again patient does not want to increase zoloft dose to try to further improve symptoms, due to concern about side effects if he increases the dose. As noted last appointment, despite some ongoing symptoms, he does present with general improvement in depression, anxiety, PTSD symptoms, he feels the Zoloft is helping significantly even at the low-dose. Pt denies SI and violent ideation. Thoughts are well organized. Denies history of hallucinations. No paranoid or delusional content presented. Speech normal. Cognitive exam grossly normal. Good self-care. No slowing noted. Has interests. Future oriented. 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 Denies street drugs Denies medication side effects. No daytime sedation. Reports compliance with Zoloft 25 mg daily, for the most part Active problems - Computerized Problem List is the source for the followin. Exposure to potentially hazardous substance 2. Sleep apnea 3. Chronic Post-Traumatic Stress Disorder ([facility] [id number]) 4. Major depressive disorder 5. Comanagement 6. Chronic back pain 7. Migraine 8. History of deployment Active Outpatient Medications (including Supplies): Active Outpatient Medications Status ======= 1) SERTRALINE HCL 25MG TAB TAKE ONE TABLET BY MOUTH ONCE ACTIVE DAILY [place] [facility]OD [facility] [place] -- Ubrelvy for migraines AMI low dose -- for ARIAS by neuro PSYCHIATRIC MEDICATION HISTORY: ? prozac zoloft another depressant pt cannot recall -- was not helpful h/o low dose elavil for ARIAS thr [facility] IMPRESSION: DSM-5 PTSD, chronic Major depression, improved r/o alcohol use do -- pt reports very limited use PLAN: I performed careful risk assessment. See C-SSRS 03/13 -same today. Patient also has important protective factors, his children and family. The pt is probably low risk for suicide or violence -- the patient denied suicidal and violent ideation, but the [employer] Crisis Line information and number were reviewed w patient as a precaution over the phone. The patient also understands to call 911 or to go to ER in the event of an emergency. therapist in psych wellness grp -- Layne Webb again, Another discussion and the patient does not want to increase dose of Zoloft, so continue Zoloft 25 mg daily for depression, PTSD, anxiety, he feels he is benefiting significantly from this dose; He does not want a higher dose of Zoloft than 25 mg daily - he wants to minimize side effects. He also philosophically is against medications longer-term. He may want to consider coming off of the Zoloft at a future appointment. Also, patient does not want a different antidepressant dc hydroxyzine for now, bec pt given amitriptyline low-dose by neuro for ARIAS (patient does not know exact dose, but states this low-dose at nighttime). Reviewed the risk of drug interaction between amitriptyline and Zoloft, which is probably very low risk , given that both are low-dose. Patient denies side effects Relapse prevention -- again, I previously reviewed the medical and psych problems assoc w alcohol use -- pt does not think he has alcohol problem and declines NELDA grp or AA/sponsor and declines considering naltrexone/campral -- I encourage pt to continue to limit/stop alcohol use. Will continue to discuss with patient. The discussion with patient about treatments including medications involved shared decision making. The patient was educated about the rationale and plan for the psychiatric medications. Medication instructions were reviewed with the patient. Alternatives to treatment were discussed with the patient. The side effect profile of the psychiatric medications was reviewed with the patient. This also included discussion of potential drug interactions associated with psychiatric medication. The patient discussed/verbalized back the understanding of the medication, side effects, and the plan/instructions, and the patient asked good questions. The patient demonstrated reasonable understanding of the medication side effects and the above-mentioned issues. The benefits of psychiatric medications outweigh risks for this patient. The patient consents to medication treatment. I asked the patient to call me or to come to open access if the patient does not like the effect of psychiatric medication or if has side effects with psychiatric medication. return to clinic in 2-3 mo for medication check. I encouraged the patient to call or to come to open access sooner if needed by calling. Medication Reconciliation: Outpatient: Has the patient been taking medications as documented in the EMLR? YES: The patient has been taking medications as documented in the EMLR. Essential Medication List for Review used to complete this medication reconciliation. /mercedes/ MIGUELITO GABRIEL MD STAFF PSYCHIATRIST Signed: 12/18/2023 14:57 MIGUELITO GABRIEL [facility] Dec 18, 2023 08:45 AM MENTAL HEALTH TELE PHONE ENCOUNTER NOTE: LOCAL TITLE: TELEPHONE NOTE/MENTAL HEALTH STANDARD TITLE: MENTAL HEALTH TELEPHONE ENCOUNTER NOTE DATE OF NOTE: DEC 18, 2023@08:45 ENTRY DATE: DEC 18, 2023@08:45:09 AUTHOR: MIGUELITO GABRIEL EXP COSIGNER: URGENCY: STATUS: COMPLETED TELEPHONE NOTE/MENTAL HEALTH Has ADDENDA Telephone note 11-20 min for encounter, pt agrees to phone encounter (I called patient when he was not on [facility]) chart reviewed see my 05/26/20 note for more hx Patient presents as relatively stable. Reports improvement in depression and PTSD symptoms with low-dose Zoloft, but again patient does not want to increase zoloft dose to try to further improve symptoms, due to concern about side effects if he increases the dose. As noted last appointment, despite some ongoing symptoms, he does present with general improvement in depression, anxiety, PTSD symptoms, he feels the Zoloft is helping significantly even at the low-dose. Pt denies SI and violent ideation. Thoughts are well organized. Denies history of hallucinations. No paranoid or delusional content presented. Speech normal. Cognitive exam grossly normal. Good self-care. No slowing noted. Has interests. Future oriented. As noted previously, pt and his is main support; resident medical officer in [place] system In general, patient reports decreased alcohol use , he does not consider alcohol to be a problem. Denies street drugs Denies medication side effects. No daytime sedation. Reports compliance with Zoloft 25 mg daily, for the most part Active problems - Computerized Problem List is the source for the followin. Exposure to potentially hazardous substance 2. Sleep apnea 3. Chronic Post-Traumatic Stress Disorder ([facility] [id number]) 4. Major depressive disorder 5. Comanagement 6. Chronic back pain 7. Migraine 8. History of deployment Active Outpatient Medications (including Supplies): Active Outpatient Medications Status ======= 1) SERTRALINE HCL 25MG TAB TAKE ONE TABLET BY MOUTH ONCE ACTIVE DAILY FOR [facility]OD [facility] -- Ubrelvy for migraines AMI low dose -- for ARIAS by neuro PSYCHIATRIC MEDICATION HISTORY: ? prozac zoloft another depressant pt cannot recall -- was not helpful h/o low dose elavil for ARIAS thr [facility] IMPRESSION: DSM-5 PTSD, chronic Major depression, improved r/o alcohol use do -- pt reports very limited use PLAN: I performed careful risk assessment. See C-SSRS 03/13 -same today. Patient also has important protective factors, his children and family. The pt is probably low risk for suicide or violence -- the patient denied suicidal and violent ideation, but the [facility] information and number were reviewed w patient as a precaution over the phone. The patient also understands to call 911 or to go to ER in the event of an emergency. therapist in psych wellness grp -- Layne Webb again, Another discussion and the patient does not want to increase dose of Zoloft, so continue Zoloft 25 mg daily for depression, PTSD, anxiety, he feels he is benefiting significantly from this dose; He does not want a higher dose of Zoloft than 25 mg daily - he wants to minimize side effects. He also philosophically is against medications longer-term. He may want to consider coming off of the Zoloft at a future appointment. Also, patient does not want a different antidepressant dc hydroxyzine for now, bec pt given amitriptyline low-dose by neuro for ARIAS (patient does not know exact dose, but states this low-dose at nighttime). Reviewed the risk of drug interaction between amitriptyline and Zoloft, which is probably very low risk , given that both are low-dose. Patient denies side effects Relapse prevention -- again, I previously reviewed the medical and psych problems assoc w alcohol use -- pt does not think he has alcohol problem and declines NELDA grp or AA/sponsor and declines considering naltrexone/campral -- I encourage pt to continue to limit/stop alcohol use. Will continue to discuss with patient. The discussion with patient about treatments including medications involved shared decision making. The patient was educated about the rationale and plan for the psychiatric medications. Medication instructions were reviewed with the patient. Alternatives to treatment were discussed with the patient. The side effect profile of the psychiatric medications was reviewed with the patient. This also included discussion of potential drug interactions associated with psychiatric medication. The patient discussed/verbalized back the understanding of the medication, side effects, and the plan/instructions, and the patient asked good questions. The patient demonstrated reasonable understanding of the medication side effects and the above-mentioned issues. The benefits of psychiatric medications outweigh risks for this patient. The patient consents to medication treatment. I asked the patient to call me or to come to open access if the patient does not like the effect of psychiatric medication or if has side effects with psychiatric medication. return to clinic in 2-3 mo for medication check. I encouraged the patient to call or to come to open access sooner if needed by calling. Medication Reconciliation: Outpatient: Has the patient been taking medications as documented in the EMLR? YES: The patient has been taking medications as documented in the EMLR. Essential Medication List for Review used to complete this medication reconciliation. /mercedes/ MIGUELITO GABRIEL MD STAFF PSYCHIATRIST Signed: 12/18/2023 14:57 12/18/2023 ADDENDUM STATUS: COMPLETED Will forward to AMSA's: Please see return to clinic order And Please cancel the [facility] appointment for today, patient requested change to phone encounter, which I already created /aaron GABRIEL MD STAFF PSYCHIATRIST Signed: 12/18/2023 14:58 Receipt Acknowledged By: * AWAITING SIGNATURE * TEAGAN MCCARTHY,MIGUELITO KUMAR
--- OUTSIDE RECORDS SUMMARY | 2024-11-05 09:36 | XMS_ITS | Encounter Summary ---
Author Name [facility] [place] [facility] [place] Address [address] [place] [address] Support Name Relationship Address Phone LEIGHTON ALLEN Next of Kin [address] [place] [address] LEIGHTON ALLEN Emergency Contact [address] [place] [address] Care Team Providers Care Dimpling Machine Operator Name Role Phone YVONNE ESTEBAN Primary Care [...] Relationship to Policy Gloria JULIANNA [place]INT [place]ICE [facility] DEPT OF COR Aug 17, 2020 [id number] [phone] ALLEN,CAR LOS PATIENT [place] ([place] CARD) PREFERRED PROVIDER ORGANIZAT ION (PPO) [facility] DEPT OF COR Aug 17, 2020 [id number] [phone] ALLEN,CAR LOS PATIENT [facility] Aug 17, 2020 [id number] ALLEN,CAR LOS PATIENT [facility] PRES[facility] ION [facility] Aug 17, 2020 [id number] [phone] ALLEN,CAR LOS PATIENT Selected Encounter This section includes the information on record at [place] for the Encounter. Date/Time Encounter Type Encounter Description Reason Pro vider Source Feb 12, 2024 01:35 PM Outpatient Encounter COMMUNITY CARE CONSULT IHE Encounter Template Text not used by [place] Plan of Treatment: Future Appointments (+ 6 months) and Future Tests (+/- 45 days) The Plan of Treatment section includes future care activities for the patient from all [place] [facility]. This section includes future appointments and future orders which are active, pending or scheduled. Future Appointments This section includes appointments that were scheduled to occur 6 months from the date of the Encounter, up to a maximum of 20 appointments. The data comes from all [place] treatment facilities. Appointment Date/Time Appointment Type Appointme nt Facility Name Feb 23, 2024 01:00 PM [facility] [place] [facility] March 29, 2024 03:00 PM AMBULATORY - PSYCHIATRY [facility] April 01, 2024 04:00 PM AMBULATORY - PSYCHIATRY [facility] Apr 26, 2024 09:30 AM [facility]ONE [facility] [place] [facility] Jun 02, 2024 09:30 AM [facility] [place] [facility] Jul 13, 2024 10:00 AM [facility]ONE [facility] [place] [facility] Jul 14, 2024 09:30 AM [facility] [place] [facility] Jul 27, 2024 10:30 AM [facility] [place] [facility] Aug 05, 2024 02:00 PM AMBULATORY - PSYCHIATRY [facility] Social History: Smoking Status (Most current) and Tobacco Use (All prior to encounter date) This section includes the most current, and the historical, smoking and tobacco- related health factors from the [place] facility where the Encounter took place. Current Smoking Status This section includes the most current smoking, or tobacco-related health factor, from the [place] facility where the Encounter took place. Date/Time Current Smoking Status Comment [facility] Apr 21, 2020 02:14 PM [place] USED [place] [facility] [place] [facility] Encounter Notes: All associated encounter notes This section contains the clinical notes associated to the Encounter. Date/Time Encounter Note(s) Provider Source Feb 12, 2024 01:35 PM DENTISTRY ADMINIST RATIVE NOTE: LOCAL TITLE: DENTAL ADMINISTRATIVE NOTE STANDARD TITLE: DENTISTRY ADMINISTRATIVE NOTE DATE OF NOTE: FEB 12, 2024@13:35 ENTRY DATE: FEB 12, 2024@13:35:29 AUTHOR: MARTHA MARADIAGA EXP COSIGNER: URGENCY: STATUS: COMPLETED SPOKE WITH [facility] IN [place] AND WITH PATIENT. PATIENT ASKING ABOUT NEEDED TX THAT WE NEVER RECEIVED FROM [facility] - THEY WILL FAX US THE TX PLAN FOR REVIEW /mercedes/ MARTHA MARADIAGA RDH, BS STAFF, DENTAL HYGIENIST Signed: 02/12/2024 13:37 MARTHA MARADIAGA [place] [facility]
--- OUTSIDE RECORDS SUMMARY | 2024-11-05 09:36 | XMS_ITS ---
Author Name [facility] [place] [facility] Address [address] [place] [address] Support Name Relationship Address Phone TIFFANY LEIGHTON Next of Kin [address] [address] LEIGHTON ALLEN Emergency Contact [address] [place] [address] Care Team Providers Care Butter Wrapper Name Role Phone YVONNE ESTEBAN Primary Care [...] [facility] Aug 17, 2020 [id number] [phone] ALLEN,CAR LOS PATIENT BCBS MD (BLUE CARD) PREFERRED PROVIDER ORGANIZAT ION (PPO) [facility] Aug 17, 2020 [id number] ALLEN,CAR LOS PATIENT [facility] PRESCRIPT ION [facility] Aug 17, 2020 [id number] [phone] ALLEN,CAR LOS PATIENT [place] PRESCRIPT ION [facility] Aug 17, 2020 [id number] [phone] ALLEN,CAR LOS PATIENT Selected Encounter This section includes the information on record at [place] for the Encounter. Date/Time Encounter Type Encounter Description Reason Pro vider Source Feb 20, 2024 08:23 AM Outpatient Encounter DENTAL IHE Encounter Template Text not used by [place] Plan of Treatment: Future Appointments (+ 6 months) and Future Tests (+/- 45 days) The Plan of Treatment section includes future care activities for the patient [facility] [place] [facility] This section includes future appointments and future orders which are active, pending or scheduled. Future Appointments This section includes appointments that were scheduled to occur 6 months from the date of the Encounter, up to a maximum of 20 appointments. The data comes from all [place] treatment facilities. Appointment Date/Time Appointment Type Appointme nt Facility Name Feb 23, 2024 01:00 PM [place]ONE [place] [facility] [place] [facility] March 29, 2024 03:00 PM AMBULATORY - PS[facility]CHI[facility]RY [facility] April 01, 2024 04:00 PM AMBULATORY - PS[facility]CH[facility]ATRY [facility] Apr 26, 2024 09:30 AM [facility]ONE [facility] [place] [facility] Jun 02, 2024 09:30 AM AM[facility]ULATORY - [facility]ONE [facility] [place] [facility] Jul 13, 2024 10:00 AM AM[facility]UL[facility]ORY - [facility]ONE [facility] [place] [facility] Jul 14, 2024 09:30 AM [facility]ONE [facility] [place] [facility] Jul 27, 2024 10:30 AM [facility] - [facility]ONE [facility] [place] [facility] Aug 05, 2024 02:00 PM AMBULATORY - PSYCHIATRY [facility] Social History: Smoking Status (Most current) and Tobacco Use (All prior to encounter date) This section includes the most current, and the historical, smoking and tobacco- related health factors from the [place] facility where the Encounter took place. Current Smoking Status This section includes the most current smoking, or tobacco-related health factor, from the [place] facility where the Encounter took place. Date/Time Current Smoking Status Comment Facil [facility] Apr 21, 2020 02:14 PM VA-TOBACCO NEVER USED [place] [facility] [place] [facility] Encounter Notes: All associated encounter notes This section contains the clinical notes associated to the Encounter. Date/Time Encounter Note(s) Provider Source Feb 20, 2024 08:23 AM DENTISTRY TELEPHON E ENCOUNTER NOTE: LOCAL TITLE: TELEPHONE NOTE/DENTAL STANDARD TITLE: DENTISTRY TELEPHONE ENCOUNTER NOTE DATE OF NOTE: FEB 20, 2024@08:23 ENTRY DATE: FEB 20, 2024@08:23:12 AUTHOR: ALICIA LAROSE EXP COSIGNER: URGENCY: STATUS: COMPLETED Called pt and LM to confirm dental appointment on 02/23/2024 at 1:00 pm. /mercedes/ ALICIA LAROSE ADVANCED SIGN MANUFACTURER Signed: 02/20/2024 08:24 ALICIA LAROSE [facility]
--- OUTSIDE RECORDS SUMMARY | 2024-11-05 09:36 | XMS_ITS | Continuity of Care Document ---
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 It does not include entries that were removed or entered in error. Problem Status Onset Date Problem Type Date of Resolution Comments Source Influenza due to unidentified influenza virus with other manifestations Inactive Condition DoD Migraine with aura, not intractable, without status migrainosus Inactive Condition DoD Adjustment disorder with mixed anxiety and depressed mood Active Condition DoD Sciatica, right side Inactive Condition DoD Periodic headache syndromes in child or adult, not intractable Inactive Condition DoD Migraine, unspecified, not intractable, with status migrainosus Inactive Condition DoD Plantar fascial fibromatosis Inactive Condition DoD Low back pain Active Condition DoD Other injury of other muscle(s) and tendon(s) at lower leg level, right leg Inactive Condition DoD Pain in left lower leg Inactive Condition DoD Constipation, unspecified Inactive Condition DoD Headache Active Condition DoD Lower abdominal pain, unspecified Active 019 Condition DoD Diarrhea, unspecified Active 019 Condition DoD Need For Vaccination Hepatitis A And Hepatitis B Inactive 013 Condition DoD contact dermatitis Active Condition DoD patient function at time of event - activity Active Condition DoD location of accident - training facility Inactive Condition DoD a fall Inactive Condition DoD contusion with intact skin surface - hand left Inactive Condition DoD Need For Vaccination Against Viral Diseases Inactive Condition DoD visit for: services physical accession Active Condition DoD Need For Vaccination Against Influenza Inactive Condition DoD visit for: screening exam pulmonary tuberculosis Inactive Condition DoD amblyopia refractive right eye Active Condition DoD refractive error - hypermetropia Active Condition DoD visit for: services physical Active Condition DoD visit: ears/hearing exam for hearing conservation, treatment Inactive Condition DoD Chronic back pain Active Condition Ap r 2019 Entered By: RUTHIE ESTEBAN Comment: intermittent Rsided sciaticaApr 2019 Entered By: RUTHIE ESTEBAN Comment: degenerative disc disease by historySep 2019 Entered By: RUTHIE ESTEBAN Comment: April 2020 MRI - no abnormalityNov 2022 Entered By: MIGUELITO GABRIEL Comment: reviewed [facility] Chronic Post-Traumatic Stress Disorder ([facility] [id number]) Active Condition Oct 13, 2023 Entered By: MIGUELITO GABRIEL Comment: reviewed [place] Comanagement Active Condition Dec 01, 2022 Entered By: RUTHIE ESTEBAN Comment: Belén Knight [facility] Exposure to potentially hazardous substance Active Condition Dec 15, 2022 Entered By: JANEY RODRIGEZ Comment: [facility] History of deployment Active Condition [facility] Major depressive disorder Active Condition Jan 25, 2021 Entered By: MIGUELITO GABRIEL Comment: reviewedAug 20, 2021 Entered By: MIGUELITO GABRIEL Comment: reviewedOct 13, 2023 Entered By: MIGUELITO GABRIEL Comment: reviewed [facility] Migraine Active Condition Jul 25 Entered By: RUTHIE ESTEBAN Comment: followed by [facility] Vo [facility] Sleep apnea Active Condition Sep 09, 2022 Entered By: RUTHIE ESTEBAN Comment: unable to tolerate PAP therapy [facility] Affective disorder Inactive Condition 10/13/2023 [facility] Chronic post-traumatic stress disorder Inactive Condition 08/20/2021 LAKSEHAKatie GARZA Diagnosis: ICD-10-CM G47.33 Obstructive sleep apnea (adult) (pediatric) Active Diagnosis [facility] Diagnosis: ICD-10-CM K03.6 Deposits [accretions] on teeth Active Diagnosis [facility] Diagnosis: ICD-10-CM F43.12 Post-traumatic stress disorder, chronic Active Diagnosis [place] Diagnosis: ICD-10-CM M54.59 Other low back pain Active Diagnosis [place] Diagnosis: ICD-10-CM G47.30 Sleep apnea, unspecified Active Diagnosis [facility] [place] [facility] Medications Combined list of outpatient medications from Department of Defense and Veterans Affairs facilities.Medications provided include 1) outpatient medications from the last 15 months, and 2) patient-reported medications. Medication Details Route Status Patient Instructions Prescription Expires Prescription Number Last Dispense Date Ordering Provider Order Date Order Qty Source AMITRIPTYLI NE HCL 10MG TAB TAKE ONE TABLET BY MOUTH AT BEDTIME ORAL ACTIVE Guy GABRIEL 2023 [facility] IELD AMOXICILLIN 500 MG ORAL CAP TAKE ONE CAPSULE BY MOUTH TWICE DAILY 10/17/2023 [id number] GLORIA ESTEBAN O C 2022 20 [facility] AMOXICILLIN TRIHYDRATE 500MG CAP TAKE ONE CAPSULE BY MOUTH TWICE DAILY ORAL 10/17/2023 [id number] GLORIA ESTEBAN O 2022 20 [facility] IELD sertraline (U/D) 25 MG ORAL TAB TAKE ONE TABLET BY MOUTH ONCE DAILY FOR MOOD 10/13/2024 [id number] 4 MIGUELITO GABRIEL 2023 60 [facility] sertraline (U/D) 25 MG ORAL TAB TAKE ONE TABLET BY MOUTH ONCE DAILY FOR POSTTRAU MATIC STRESS SYNDROME FOR MOOD Discont inued 01/24/2024 [id number] 3 MIGUELITO GABRIEL 2022 60 [facility] SERTRALINE HCL 25MG TAB TAKE ONE TABLET BY MOUTH ONCE DAILY FOR POSTTRAU MATIC STRESS SYNDROME ORAL SUSPEND ED 08/06/2025 [id number] 5 Guy GABRIEL 2023 60 [facility] IELD SERTRALINE HCL 25MG TAB TAKE ONE TABLET BY MOUTH ONCE DAILY FOR MOOD ORAL DISCONT INUED 10/13/2024 [id number] 4 Guy GABRIEL 2022 60 [facility] IELD SERTRALINE HCL 25MG TAB TAKE ONE TABLET BY MOUTH ONCE DAILY FOR POSTTRAU MATIC STRESS SYNDROME FOR MOOD ORAL DISCONT INUED (EDIT) 01/24/2024 [id number] 3 Guy GABRIEL 2022 60 [facility] IELD SODIUM FLUORIDE 1.1% TOOTHPASTE BRUSH SMALL AMOUNT TO TEETH TWICE DAILY FOR TOOTH DECAY PREVENTI ON DENTAL ACTIVE 10/12/2025 [id number] 4 Geraldine KEYES 2023 51 [facility] UBROGEPANT TAB TAKE BY MOUTH ONE TIME ORAL ACTIVE Guy GABRIEL 2023 [place] Allergies, Adverse Reactions, Alerts Combined list of allergies from Department of Defense and Veterans Affairs facilities. It does not include entries that were removed or entered in error. Substance Category Reaction Severity Reaction type Status Date Reported Comments Source No Known Allergies Drug allergy (disorder) active 08/24/2013 Fabio Nunez [place] Immunizations Combined list of available immunizations from the Department of Defense and Veterans Affairs facilities. 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 And Fire Technician Status Comments Source influenza, injectable, quadrivalent, contains preservative 1 2018 [id number] [employer] (SEQ) complet ed influenza , injectabl e, quadrival ent, contains preservat vaughn DoD anthrax vaccine 1 2018 [id number] [employer] [place] ([facility]) complet ed anthrax vaccine DoD typhoid Vi capsular polysaccharid e vaccine 1 2018 [id number] Sanofi Pasteur (PMC) complet ed typhoid Vi capsular polysacch aride vaccine DoD Influenza, seasonal, injectable, preservative free 1 2017 [id number] [employer] (SEQ) comple t ed Influenza , seasonal, injectabl e, preservat vaughn free DoD Influenza, injectable, quadrivalent, preservative free 1 2017 UNK 150 Unknown (UNK) comple t ed Influenza , injectabl e, quadrival ent, preservat vaughn free DoD Influenza, seasonal, injectable, preservative free 1 2016 [id number] 140 Unknown (UNK) comple t ed Influenza , seasonal, injectabl e, preservat vaughn free DoD Influenza, seasonal, injectable, preservative free 1 2015 [id number] 140 Other (OTH) complet ed Influenza , seasonal, injectabl e, preservat vaughn free DoD Influenza, seasonal, injectable, preservative free 1 2014 [id number] 140 Other (OTH) complet ed Influenza , seasonal, injectabl e, preservat vaughn free DoD hepatitis B vaccine, adult dosage 3 2013 [id number] Other (OTH) complet ed hepatitis B vaccine, adult dosage DoD hepatitis A vaccine, adult dosage 3 2013 [id number] Other (OTH) complet ed hepatitis A vaccine, adult dosage DoD Influenza, seasonal, injectable, preservative free 1 2013 [id number] [facility] ([facility]) complet ed Influenza , seasonal, injectabl e, preservat vaughn free DoD hepatitis A and hepatitis B vaccine 2 2012 [id number] 104 [facility] ([facility]) complet ed hepatitis A and hepatitis B vaccine DoD measles, mumps and rubella virus vaccine 1 2012 UNK 03 Unknown (UNK) Not Given measles, mumps and rubella virus vaccine DoD varicella virus vaccine 1 2012 UNK 21 Unknown (UNK) Not Given varicella virus vaccine DoD hepatitis A and hepatitis B vaccine 1 2012 [id number] 104 [facility] (B) complet ed hepatitis A and hepatitis B vaccine DoD Adenovirus, type 4 and type 7, live, oral 1 2012 [id number] 143 [facility] ([facility]) complet ed Adenoviru s, type 4 and type 7, live, oral DoD influenza, live, intranasal, quadrivalent 1 2012 [id number] [employer] (CSL) complet ed influenza , live, intranasa l, quadrival ent DoD poliovirus vaccine, inactivated 1 2012 [id number] 10 Sanofi Pasteur (PMC) complet ed polioviru s vaccine, inactivat ed DoD meningococcal polysaccharid e (groups A, C, Y and W-135) diphtheria toxoid conjugate vaccine (MCV4P) 1 2012 [id number] 114 [facility] ed meningoco ccal polysacch aride (groups A, C, Y and W-135) diphtheri a toxoid conjugate vaccine (MCV4P) DoD tetanus toxoid, reduced diphtheria toxoid, and acellular pertu is vaccine, adsorbed 1 2012 [id number] 115 Sanofi Pasteur ([facility]) complet ed tetanus toxoid, reduced diphtheri a toxoid, and acellular pertussis vaccine, adsorbed DoD Results Combined list of recent chemistry, hematology and other laboratory results from Department of Defense and Veterans Affairs, ranging from 15 months to all on record, depending upon the facility. Order Name Results Value Reference Range Date Interpretation Specimen Comments Source STREP A (CEPHEID ) STREP A (CEPHEID) D 09/17 Specimen Type: PHARYNX No comment entered. Ordering Provider: JOSHUA ESTEBAN Report Released Date/Time: Sep 17, 2023 11:53 AM Reporting Lab: [facility] [address] [address] Performing Lab: [facility] [address] [facility]USE [facility] BASIC METABOLI C PANEL (fasting ) UREA NITROGEN [MASS/VOLU ME] IN SERUM OR PLASMA 13 mg/dL 7 - 25 09/17 Specimen Type: SERUM No comment entered. Ordering Provider: JOSHUA ESTEBAN Report Released Date/Time: March 19, 2023 04:54 PM Reporting Lab: [facility]TR[facility]SEL[facility] [address] [facility] [address] Performing Lab: [facility]RRANDOL[facility]TRN [facility]OSPITALUSE[facility] [address] [facility] [address] [facility] BASIC METABOLI C PANEL (fasting ) GLUCOSE [MASS/VOLU ME] IN SERUM OR PLASMA 92 mg/dL 65 - 100 09/17 Specimen Type: SERUM No comment entered. Ordering Provider: JOSHUA ESTEBAN Report Released Date/Time: March 19, 2023 04:54 PM Reporting Lab: [facility] [address] [address] Performing Lab: [facility]N [facility]ITALUSE[address] [address] [facility]N [facility]OS[facility]ITALUSE [facility] BASIC METABOLI C PANEL (fasting ) SODIUM [MOLES/VOL UME] IN SERUM OR PLASMA 139 mmol/L 135 - 145 09/17 Specimen Type: SERUM No comment entered. Ordering Provider: JOSHUA ESTEBAN Report Released Date/Time: March 19, 2023 04:54 PM Reporting Lab: [facility]TRN [facility]ITALUSE[address] [address] Performing Lab: [facility]PITALRL TRN [facility]OSPITALUSE[facility] [address] [facility] [address] [facility]ITALRRANDOL[facility]TRN [facility]ITALUSE [facility] BASIC METABOLI C PANEL (fasting ) POTASSIUM [MOLES/VOL UME] IN SERUM OR PLASMA 4.2 mmol/L 3.5 - 5.0 09/17 Specimen Type: SERUM No comment entered. Ordering Provider: JOSHUA ESTEBAN Report Released Date/Time: March 19, 2023 04:54 PM Reporting Lab: [facility]TRN [facility]ITALUSE[address] [address] Performing Lab: [facility]ITALRL WSTRN [facility]ITALUSE[address] [address] [facility]N [facility] HOSPITALUSE [facility] BASIC METABOLI C PANEL (fasting ) CHLORIDE [MOLES/VOL UME] IN SERUM OR PLASMA 105 mmol/L 100 - 110 09/17 Specimen Type: SERUM No comment entered. Ordering Provider: JOSHUA ESTEBAN Report Released Date/Time: March 19, 2023 04:54 PM Reporting Lab: [facility] [place] [address] [address] Performing Lab: [facility]RL W[facility]N [facility]OSPITALUSETS [address] [address] [facility]ITALRRANDOL[facility]ENTERTRN [facility] HOSPITALUSE [facility] BASIC METABOLI C PANEL (fasting ) CARBON DIOXIDE, TOTAL [MOLES/VOL UME] IN SERUM OR PLASMA 26 meq/L 20 - 30 09/17 Specimen Type: SERUM No comment entered. Ordering Provider: JOSHUA ESTEBAN Report Released Date/Time: March 19, 2023 04:54 PM Reporting Lab: [facility]ENTERTRN [address] [address] Performing Lab: [facility] [place] [facility] [address] [facility] [address] [facility] BASIC METABOLI C PANEL (fasting ) CREATININE [MASS/VOLU ME] IN SERUM OR PLASMA 1.11 mg/dL 0.50 - 1.40 09/17 Specimen Type: SERUM No comment entered. Ordering Provider: JOSHUA ESTEBAN Report Released Date/Time: March 19, 2023 04:54 PM Reporting Lab: [facility] [place] [facility] [address] [facility] [address] Performing Lab: [facility] [place] [address] [address] [facility]ITALRL W[facility]N [facility] BASIC METABOLI C PANEL (fasting ) GLOMERULAR FILTRATION RATE/1.73 SQ M.PREDICTE D [VOLUME RATE/AREA] IN SERUM, PLASMA OR BLOOD BY CREATININE -BASED FORMULA (CKD-EPI 2020) 90 mL/min 60 09/17 Specimen Type: SERUM No comment entered. Ordering Provider: JOSHUA ESTEBAN Report Released Date/Time: March 19, 2023 04:54 PM Reporting Lab: [facility] [place] [address] [address] Performing Lab: [facility]PITALUSETS [address] [address] [facility]OSPITALRSHELBY BAPT[facility] CENTERN [facility]S HOSPITALUSE [facility] CBC AND DIFF (AUTO) LEUKOCYTES [#/VOLUME] IN BLOOD BY AUTOMATED COUNT 11.72 10*3/uL 4.50 - 11.00 09/17 H Specimen Type: BLOOD No comment entered. Ordering Provider: JOSHUA ESTEBAN Report Released Date/Time: March 19, 2023 04:54 PM Reporting Lab: [facility] [place] [address] [address] Performing Lab: [facility]PITALCHUSETS [address] [address] [facility]OSPITALRL [facility]ERN [facility] HOSPITALUSE [facility] CBC AND DIFF (AUTO) ERYTHROCYT ES [#/VOLUME] IN BLOOD BY AUTOMATED COUNT 5.54 10*6/uL 4.23 - 5.66 09/17 Specimen Type: BLOOD No comment entered. Ordering Provider: JOSHUA ESTEBAN Report Released Date/Time: March 19, 2023 04:54 PM Reporting Lab: [facility] [place] [facility] [address] [facility] [address] Performing Lab: [facility] [place] [facility] [address] [facility] [address] [facility] CBC AND DIFF (AUTO) HEMOGLOBIN [MASS/VOLU ME] IN BLOOD 14.9 g/dL 12.8 - 17 09/17 Specimen Type: BLOOD No comment entered. Ordering Provider: JOSHUA ESTEBAN Report Released Date/Time: March 19, 2023 04:54 PM Reporting Lab: [facility] [place] [address] [address] Performing Lab: [facility] [place] [facility] [address] [facility] [address] [facility] [place] [facility] CBC AND DIFF (AUTO) HEMATOCRIT [VOLUME FRACTION] OF BLOOD BY AUTOMATED COUNT 45.1 39.2 - 50.4 09/17 Specimen Type: BLOOD No comment entered. Ordering Provider: JOSHUA ESTEBAN Report Released Date/Time: March 19, 2023 04:54 PM Reporting Lab: [facility] [place] [address] [address] Performing Lab[facility] [place] [facility] [address] [facility] [address] [facility] [place] [facility] CBC AND DIFF (AUTO) MCV [ENTITIC VOLUME] BY AUTOMATED COUNT 81.4 fL 82 - 99 09/17 L Specimen Type: BLOOD No comment entered. Ordering Provider: JOSHUA ESTEBAN Report Released Date/Time: March 19, 2023 04:54 PM Reporting Lab: [facility] [place] [facility] [address] [facility] [address] Performing Lab: [facility] [place] [address] [address] [facility] CBC AND DIFF (AUTO) MCHC [MASS/VOLU ME] BY AUTOMATED COUNT 33.0 g/dL 30.8 - 35.1 09/17 Specimen Type: BLOOD No comment entered. Ordering Provider: JOSHUA ESTEBAN Report Released Date/Time: March 19, 2023 04:54 PM Reporting Lab: [facility] [facility] [address] [facility] [address] Performing Lab: [facility] [facility] [address] [facility] [address] [facility] CBC AND DIFF (AUTO) PLATELETS [#/VOLUME] IN BLOOD BY AUTOMATED COUNT 294 10*3/uL 140 - 360 09/17 Specimen Type: BLOOD No comment entered. Ordering Provider: JOSHUA ESTEBAN Report Released Date/Time: March 19, 2023 04:54 PM Reporting Lab: [facility] [place] [facility] [address] [facility] [address] Performing Lab: [facility] [place] [facility] [address] [facility] [address] [facility] [place] [facility] CBC AND DIFF (AUTO) ERYTHROCYT E DISTRIBUTI ON WIDTH [RATIO] BY AUTOMATED COUNT 13.9 12.0 - 16.0 09/17 Specimen Type: BLOOD No comment entered. Ordering Provider: JOSHUA ESTBEAN Report Released Date/Time: March 19, 2023 04:54 PM Reporting Lab: [facility] [place] [facility] [address] [facility] [address] Performing Lab: [facility] [place] [facility] [address] [facility] [address] [facility] CBC AND DIFF (AUTO) MONOCYTES [#/VOLUME] IN BLOOD BY AUTOMATED COUNT 0.96 10*3/uL 0.30 - 1.10 09/17 Specimen Type: BLOOD No comment entered. Ordering Provider: JOSHUA ESTEBAN Report Released Date/Time: March 19, 2023 04:54 PM Reporting Lab: [facility] [place] [facility] [address] [facility] [address] Performing Lab: [facility] [place] [facility] [address] [facility] [address] [facility] CBC AND DIFF (AUTO) MCH [ENTITIC MASS] BY AUTOMATED COUNT 26.9 pg 26.2 - 32.6 09/17 Specimen Type: BLOOD No comment entered. Ordering Provider: JOSHUA ESTEBAN Report Released Date/Time: March 19, 2023 04:54 PM Reporting Lab: [facility] [place] [facility] [address] [facility] [address] Performing Lab: [facility] [place] [facility] [address] [facility] [address] [facility] [place] CBC AND DIFF (AUTO) NEUTROPHIL S/100 LEUKOCYTES IN BLOOD BY AUTOMATED COUNT 76.1 43.7 - 75.8 09/17 H Specimen Type: BLOOD No comment entered. Ordering Provider: JOSHUA ESTEBAN Report Released Date/Time: March 19, 2023 04:54 PM Reporting Lab: [facility] [place] [facility] [address] [facility] [address] Performing Lab: [facility] [place] [facility] [address] [facility] [address] [facility] [place] [facility] CBC AND DIFF (AUTO) LYMPHOCYTE S/100 LEUKOCYTES IN BLOOD BY AUTOMATED COUNT 13.8 14.0 - 42.3 09/17 L Specimen Type: BLOOD No comment entered. Ordering Provider: JOSHUA ESTEBAN Report Released Date/Time: March 19, 2023 04:54 PM Reporting Lab: [facility] [place] [facility] [address] [facility] [address] Performing Lab: [facility] [place] [facility] [address] [facility] [address] [facility] [place] CBC AND DIFF (AUTO) MONOCYTES/ 100 LEUKOCYTES IN BLOOD BY AUTOMATED COUNT 8.2 5.1 - 13.7 09/17 Specimen Type: BLOOD No comment entered. Ordering Provider: JOSHUA ESTEBAN Report Released Date/Time: March 19, 2023 04:54 PM Reporting Lab: [facility] [place] [facility] [address] [facility] [address] Performing Lab: [facility] [place] [facility] [address] [facility] [address] [facility] [place] [facility] CBC AND DIFF (AUTO) EOSINOPHIL S/100 LEUKOCYTES IN BLOOD BY AUTOMATED COUNT 1.1 0.4 - 6.8 09/17 Specimen Type: BLOOD No comment entered. Ordering Provider: JOSHUA ESTEBAN Report Released Date/Time: March 19, 2023 04:54 PM Reporting Lab: [facility] [place] [facility] [address] [facility] [address] Performing Lab: [facility] [place] [address] [address] [facility] [place] CBC AND DIFF (AUTO) BASOPHILS/ 100 LEUKOCYTES IN BLOOD BY AUTOMATED COUNT 0.5 0.1 - 2.0 09/17 Specimen Type: BLOOD No comment entered. Ordering Provider: JOSHUA ESTEBAN Report Released Date/Time: March 19, 2023 04:54 PM Reporting Lab: [facility] [place] [address] [address] Performing Lab: [facility] [place] [address] [address] [facility] [place] [facility] CBC AND DIFF (AUTO) NEUTROPHIL S [#/VOLUME] IN BLOOD BY AUTOMATED COUNT 8.91 10*3/uL 2.20 - 7.60 09/17 H Specimen Type: BLOOD No comment entered. Ordering Provider: JOSHUA ESTEBAN Report Released Date/Time: March 19, 2023 04:54 PM Reporting Lab: [facility] [place] [facility] [address] [facility] [address] Performing Lab: [facility] [place] [address] [address] [facility] [place] [facility] CBC AND DIFF (AUTO) LYMPHOCYTE S [#/VOLUME] IN BLOOD BY AUTOMATED COUNT 1.62 10*3/uL 1.00 - 3.20 09/17 Specimen Type: BLOOD No comment entered. Ordering Provider: JOSHUA ESTEBAN Report Released Date/Time: March 19, 2023 04:54 PM Reporting Lab: [facility] [place] [address] [address] Performing Lab: [facility] [place] [facility] [address] [facility] [address] [facility] [place] [facility] CBC AND DIFF (AUTO) EOSINOPHIL S [#/VOLUME] IN BLOOD BY AUTOMATED COUNT 0.13 10*3/uL 0.03 - 0.44 09/17 Specimen Type: BLOOD No comment entered. Ordering Provider: JOSHUA ESTEBAN Report Released Date/Time: March 19, 2023 04:54 PM Reporting Lab: [facility] [place] [address] [address] Performing Lab: [place] [facility] [place] [address] [address] [facility] [place] [facility] CBC AND DIFF (AUTO) BASOPHILS [#/VOLUME] IN BLOOD BY AUTOMATED COUNT 0.06 10*3/uL 0.01 - 0.13 09/17 Specimen Type: BLOOD No comment entered. Ordering Provider: JOSHUA ESTEBAN Report Released Date/Time: March 19, 2023 04:54 PM Reporting Lab: [facility] [place] [address] [address] Performing Lab: [facility] [place] [address] [address] [facility] [place] [facility] CBC AND DIFF (AUTO) IMMATURE GRANULOCYT ES/100 LEUKOCYTES IN BLOOD BY AUTOMATED COUNT 0.3 0.0 - 0.7 09/17 Specimen Type: BLOOD No comment entered. Ordering Provider: JOSHUA ESTEBAN Report Released Date/Time: March 19, 2023 04:54 PM Reporting Lab: [facility] [place] [address] [address] Performing Lab: [place] [facility] [place] [facility] [address] [facility] [address] [facility]ITALRSHELBY [facility]ENTERN [place] [facility] CBC AND DIFF (AUTO) IMMATURE GRANULOCYT ES [#/VOLUME] IN BLOOD 0.04 10*3/uL 0.00 - 0.06 09/17 Specimen Type: BLOOD No comment entered. Ordering Provider: JOSHUA ESTEBAN Report Released Date/Time: March 19, 2023 04:54 PM Reporting Lab: [facility] [place] [facility] [address] [facility] [address] Performing Lab: [facility]PITALRRANDOLPH MEDICAL CENTERTRN [facility] HOSPITALUSELONG [facility] [address] [facility] [address] [facility]N [facility] HOSPITALUSE [facility] HEMOGLOB IN A1C PANEL HEMOGLOBIN A1C/HEMOGL OBIN.TOTAL IN BLOOD BY HPLC 5.2 4.0 - 5.6 09/17 Specimen Type: BLOOD Comment: Values obtained from A1C measurement s can vary. For atypical A1C assays, a reported value of 7.0 could actually be between 6.72 and 7.28 if measured by a reference method. A reported value of 9.0 could actually be between 8.73 and 9.27. Ref: http://www. ngsp.org/[place] Pdata.asp Ordering Provider: JOSHUA ESTEBAN Report Released Date/Time: March 19, 2023 04:54 PM Reporting Lab: [facility] HOSPITALN [facility] [address] [facility] [address] Performing Lab: [facility]PITALRSHELBY [facility]APTIST [facility] CENTERN [facility] HOSPITALUSELONG [facility] [address] [facility] [address] [facility]N [facility]OSPITALUSE [facility] LIPID PANEL FASTING CHOLESTERO L [MASS/VOLU ME] IN SERUM OR PLASMA 168 mg/dL 09/17 Specimen Type: SERUM No comment entered. Ordering Provider: JOSHUA ESTEBAN Report Released Date/Time: March 19, 2023 04:54 PM Reporting Lab: [facility]ITALN [facility] HOSPITALUSELONG [facility] [address] [facility] [address] Performing Lab: [facility]ITALN [facility] HOSPITALUSE[address] [address] [facility] [place] [facility] LIPID PANEL FASTING TRIGLYCERI DE [MASS/VOLU ME] IN SERUM OR PLASMA 185 mg/dL 0 - 150 09/17 H Specimen Type: SERUM No comment entered. Ordering Provider: JOSHUA ESTEBAN Report Released Date/Time: March 19, 2023 04:54 PM Reporting Lab: [facility] [place] [facility] [address] [facility] [address] Performing Lab: [facility] [place] [facility] [address] [facility] [address] [facility] [place] [facility] LIPID PANEL FASTING CHOLESTERO L IN LDL [MASS/VOLU ME] IN SERUM OR PLASMA BY CALCULATIO N 91 mg/dL 0 - 129 09/17 Specimen Type: SERUM No comment entered. Ordering Provider: JOSHUA ESTEBAN Report Released Date/Time: March 19, 2023 04:54 PM Reporting Lab: [facility] [place] [address] [address] Performing Lab: [facility] [place] [address] [address] [facility] [place] [facility] LIPID PANEL FASTING CHOLESTERO L.TOTAL/CH OLESTEROL IN HDL [MASS RATIO] IN SERUM OR PLASMA 4.2 09/17 Specimen Type: SERUM No comment entered. Ordering Provider: JOSHUA ESTEBAN Report Released Date/Time: March 19, 2023 04:54 PM Reporting Lab: [facility] [place] [facility] [address] [facility] [address] Performing Lab: [facility] [place] [address] [address] [facility] [place] [facility] LIPID PANEL FASTING CHOLESTERO L IN HDL [MASS/VOLU ME] IN SERUM OR PLASMA 40 mg/dL 40 - 60 09/17 Specimen Type: SERUM No comment entered. Ordering Provider: JOSHUA ESTEBAN Report Released Date/Time: March 19, 2023 04:54 PM Reporting Lab: [facility] [place] [address] [address] Performing Lab: [facility] [place] [facility] [address] [facility] [address] [facility] [place] [facility] LIVER FUNCTION PROTEIN [MASS/VOLU ME] IN SERUM OR PLASMA 7.5 g/dL 6.0 - 8.3 09/17 Specimen Type: SERUM No comment entered. Ordering Provider: JOSHUA ESTEBAN Report Released Date/Time: March 19, 2023 04:54 PM Reporting Lab: [facility] [place] [facility] [address] [facility] [address] Performing Lab: [place] [facility] HOSPITALUSELONG [facility] [address] [facility] [address] [facility]OSPITALRRANDOLPH MEDICAL CENTERTRN [facility]'S HOSPITALUSE [facility] LIVER FUNCTION ALBUMIN [MASS/VOLU ME] IN SERUM OR PLASMA 4.3 g/dL 3.5 - 5.0 09/17 Specimen Type: SERUM No comment entered. Ordering Provider: JOSHUA ESTEBAN Report Released Date/Time: March 19, 2023 04:54 PM Reporting Lab: [facility] [place] [facility] [address] [facility] [address] Performing Lab: [place] [facility] HOSPITALUSETS [facility] [address] [facility] [address] [facility]PITALRL [facility]ERN [facility]'S HOSPITALUSE [facility] LIVER FUNCTION ALKALINE PHOSPHATAS E [ENZYMATIC ACTIVITY/V OLUME] IN SERUM OR PLASMA 49 U/L 40 - 150 09/17 Specimen Type: SERUM No comment entered. Ordering Provider: JOSHUA ESTEBAN Report Released Date/Time: March 19, 2023 04:54 PM Reporting Lab: [facility] [place] [facility] [address] [facility] [address] Performing Lab: [place] [facility] [place] [facility] [address] [facility] [address] [facility]PITALRRANDOLPH MEDICAL CENTERTRN [facility]S HOSPITALUSE [facility] LIVER FUNCTION ASPARTATE AMINOTRANS FERASE [ENZYMATIC ACTIVITY/V OLUME] IN SERUM OR PLASMA 19 U/L 5 - 34 09/17 Specimen Type: SERUM No comment entered. Ordering Provider: JOSHUA ESTEBAN Report Released Date/Time: March 19, 2023 04:54 PM Reporting Lab: [facility] [place] [facility] [address] [facility] [address] Performing Lab: [facility] [place] [facility] [address] [facility] [address] [facility] [place] [facility] LIVER FUNCTION ALANINE AMINOTRANS FERASE [ENZYMATIC ACTIVITY/V OLUME] IN SERUM OR PLASMA 30 U/L 09/17 Specimen Type: SERUM No comment entered. Ordering Provider: JOSHUA ESTEBAN Report Released Date/Time: March 19, 2023 04:54 PM Reporting Lab: [facility] [place] [facility] [address] [facility] [address] Performing Lab: [facility] [place] [facility] [address] [facility] [address] [place] [facility] [facility] LIVER FUNCTION BILIRUBIN. TOTAL [MASS/VOLU ME] IN SERUM OR PLASMA 0.8 mg/dL 0.2 - 1.2 09/17 Specimen Type: SERUM No comment entered. Ordering Provider: JOSHUA ESTEBAN Report Released Date/Time: March 19, 2023 04:54 PM Reporting Lab: [facility] [place] [facility] [address] [facility] [address] Performing Lab: [facility] [place] [facility] [address] [facility] [address] [place] [facility] [place] [facility] TSH THYROTROPI N [UNITS/VOL UME] IN SERUM OR PLASMA 2.26 u[IU]/mL 0.35 - 5.00 09/17 Specimen Type: SERUM No comment entered. Ordering Provider: JOSHUA ESTEBAN Report Released Date/Time: March 19, 2023 04:54 PM Reporting Lab: [facility] [place] [facility] [address] [facility] [address] Performing Lab: [facility] [place] [facility] [address] [facility] [address] [place] [facility] [place] [facility] MICROSCO PIC AUTOMATE D, URINE LEUKOCYTES [#/AREA] IN URINE SEDIMENT BY MICROSCOPY HIGH POWER FIELD 0-5/[HPF ] 0 - 5 11/20 Specimen Type: URINE No comment entered. Ordering Provider: JOSHUA ESTEBAN Report Released Date/Time: Nov 20, 2022 02:09 PM Reporting Lab: [facility] [place] [facility] [address] [facility] [address] Performing Lab: [place] [facility] [place] [address] [address] [facility] [place] [facility] MICROSCO PIC AUTOMATE D, URINE MUCUS [#/AREA] IN URINE SEDIMENT BY MICROSCOPY LOW POWER FIELD FEW/[LPF ] 11/20 Specimen Type: URINE No comment entered. Ordering Provider: JOSHUA ESTEBAN Report Released Date/Time: Nov 20, 2022 02:09 PM Reporting Lab: [place] [facility] [place] [place] [address] [address] Performing Lab: [facility] [place] [address] [address] [facility] [facility] MICROSCO PIC AUTOMATE D, URINE ERYTHROCYT ES [#/AREA] IN URINE SEDIMENT BY MICROSCOPY HIGH POWER FIELD 0-2/[HPF ] 0 - 3 11/20 Specimen Type: URINE No comment entered. Ordering Provider: JOSHUA ESTEBAN Report Released Date/Time: Nov 20, 2022 02:09 PM Reporting Lab: [facility] [place] [place] [address] [address] Performing Lab: [facility] [place] [address] [address] [facility] [place] [facility] MICROSCO PIC AUTOMATE D, URINE EPITHELIAL CELLS.SQUA MOUS [#/AREA] IN URINE SEDIMENT BY MICROSCOPY HIGH POWER FIELD FEW/[HPF ] 11/20 Specimen Type: URINE No comment entered. Ordering Provider: JOSHUA ESTEBAN Report Released Date/Time: Nov 20, 2022 02:09 PM Reporting Lab: [facility] [place] [address] [address] Performing Lab: [facility] [place] [facility] [address] [facility] [address] [facility] [place] [facility] MICROSCO PIC AUTOMATE D, URINE AMORPHOUS SEDIMENT [PRESENCE] IN URINE SEDIMENT BY LIGHT MICROSCOPY FEW/[HPF ] 11/20 Specimen Type: URINE No comment entered. Ordering Provider: JOSHUA ESTEBAN Report Released Date/Time: Nov 20, 2022 02:09 PM Reporting Lab: [facility] [place] [facility] [address] [facility] [address] Performing Lab: [facility] [place] [facility] [address] [facility] [address] [facility] [place] [facility] URINALYS IS COLOR OF URINE Yellow 11/20 Specimen Type: URINE No comment entered. Ordering Provider: JOSHUA ESTEBAN Report Released Date/Time: Nov 20, 2022 02:09 PM Reporting Lab: [facility] [place] [facility] [address] [facility] [address] Performing Lab: [place] [facility] [place] [facility] [address] [facility] [address] [facility] [place] [facility] URINALYS IS APPEARANCE OF URINE Cloudy 11/20 Specimen Type: URINE No comment entered. Ordering Provider: JOSHUA ESTEBAN Report Released Date/Time: Nov 20, 2022 02:09 PM Reporting Lab: [facility] [place] [facility] [address] [facility] [address] Performing Lab: [facility] [place] [facility] [address] [facility] [address] [facility] [facility] URINALYS IS GLUCOSE [MASS/VOLU ME] IN URINE Negative mg/dL 11/20 Specimen Type: URINE No comment entered. Ordering Provider: JOSHUA ESTEBAN Report Released Date/Time: Nov 20, 2022 02:09 PM Reporting Lab: [facility] [place] [facility] [address] [facility] [address] Performing Lab: [facility] [place] [address] [address] [facility] [place] [facility] URINALYS IS KETONES [MASS/VOLU ME] IN URINE BY TEST STRIP Negative mg/dL 11/20 Specimen Type: URINE No comment entered. Ordering Provider: JOSHUA ESTEBAN Report Released Date/Time: Nov 20, 2022 02:09 PM Reporting Lab: [facility] [place] [facility] [address] [facility] [address] Performing Lab: [facility] [place] [facility] [address] [facility] [address] [facility] [place] [facility] URINALYS IS ERYTHROCYT ES [PRESENCE] IN URINE SEDIMENT BY LIGHT MICROSCOPY Negative 11/20 Specimen Type: URINE No comment entered. Ordering Provider: JOSHUA ESTEBAN Report Released Date/Time: Nov 20, 2022 02:09 PM Reporting Lab: [facility] [place] [facility] [address] [facility] [address] Performing Lab: [facility] [place] [facility] [address] [facility] [address] [facility] [place] [facility] URINALYS IS PROTEIN [MASS/VOLU ME] IN URINE BY TEST STRIP Negative mg/dL 11/20 Specimen Type: URINE No comment entered. Ordering Provider: JOSHUA ESTEBAN Report Released Date/Time: Nov 20, 2022 02:09 PM Reporting Lab: [facility] [place] [facility] [address] [facility] [address] Performing Lab: [facility] [place] [facility] [address] [facility] [address] [facility] [place] [facility] URINALYS IS NITRITE [PRESENCE] IN URINE Negative 11/20 Specimen Type: URINE No comment entered. Ordering Provider: JOSHUA ESTEBAN Report Released Date/Time: Nov 20, 2022 02:09 PM Reporting Lab: [facility] [place] [facility] [address] [facility] [address] Performing Lab: [facility] [place] [facility] [address] [facility] [address] [facility]N [place] [facility] URINALYS IS BILIRUBIN. TOTAL [PRESENCE] IN URINE Negative 11/20 Specimen Type: URINE No comment entered. Ordering Provider: JOSHUA ESTEBAN Report Released Date/Time: Nov 20, 2022 02:09 PM Reporting Lab: [facility]N [place] [facility] [address] [facility] [address] Performing Lab: [facility]ITALN [facility]OSPITALUSE[address] [address] [facility]N [facility] HOSPITALUSE [facility] URINALYS IS SPECIFIC GRAVITY OF URINE BY REFRACTOME TRY 1.020 1.016 - 1.022 11/20 Specimen Type: URINE No comment entered. Ordering Provider: JOSHUA ESTEBAN Report Released Date/Time: Nov 20, 2022 02:09 PM Reporting Lab: [facility]N [facility] HOSPITALUSE[address] [address] Performing Lab: [facility]N [facility]PITALUSE[address] [address] [facility]N [facility] HOSPITALUSE [facility] URINALYS IS PH OF URINE BY TEST STRIP 8.0 5.0 - 9.0 11/20 Specimen Type: URINE No comment entered. Ordering Provider: JOSHUA ESTEBAN Report Released Date/Time: Nov 20, 2022 02:09 PM Reporting Lab: [facility]N [facility]OSPITALUSE[address] [address] Performing Lab: [facility]N [facility]PITALUSE[address] [address] [facility]N [facility]OS[facility]ITALUSE [facility] URINALYS IS UROBILINOG EN [MASS/VOLU ME] IN URINE BY TEST STRIP <2.0mg/d L <2.0 - 2.0 11/20 Specimen Type: URINE No comment entered. Ordering Provider: JOSHUA ESTEBAN Report Released Date/Time: Nov 20, 2022 02:09 PM Reporting Lab: [facility]N [place] [address] [address] Performing Lab: [facility] [place] [facility] [address] [facility] [address] [facility] [place] [facility] URINALYS IS LEUKOCYTE ESTERASE [PRESENCE] IN URINE BY TEST STRIP Negative 11/20 Specimen Type: URINE No comment entered. Ordering Provider: JOSHUA ESTEBAN Report Released Date/Time: Nov 20, 2022 02:09 PM Reporting Lab: [facility] [place] [facility] [address] [facility] [address] Performing Lab: [facility] [place] [facility] [address] [facility] [address] [facility] [place] [facility] BASIC METABOLI C PANEL (fasting ) UREA NITROGEN [MASS/VOLU ME] IN SERUM OR PLASMA 13 mg/dL 7 - 25 11/20 Specimen Type: SERUM No comment entered. Ordering Provider: JOSHUA ESTEBAN Report Released Date/Time: Nov 07, 2022 02:38 PM Reporting Lab: [facility] [place] [facility] [address] [facility] [address] Performing Lab: [place] [facility] [place] [address] [address] [facility] [place] [facility] BASIC METABOLI C PANEL (fasting ) GLUCOSE [MASS/VOLU ME] IN SERUM OR PLASMA 95 mg/dL 65 - 100 11/20 Specimen Type: SERUM No comment entered. Ordering Provider: JOSHUA ESTEBAN Report Released Date/Time: Nov 07, 2022 02:38 PM Reporting Lab: [facility] [place] [facility] [address] [facility] [address] Performing Lab: [facility] [place] [facility] [address] [facility] [address] [facility] [place] [facility] BASIC METABOLI C PANEL (fasting ) SODIUM [MOLES/VOL UME] IN SERUM OR PLASMA 138 mmol/L 135 - 145 11/20 Specimen Type: SERUM No comment entered. Ordering Provider: JOSHUA ESTEBAN Report Released Date/Time: Nov 07, 2022 02:38 PM Reporting Lab: [facility] [facility] [address] [facility] [address] Performing Lab: [facility] [facility] [address] [facility] [address] [facility] [place] [facility] BASIC METABOLI C PANEL (fasting ) POTASSIUM [MOLES/VOL UME] IN SERUM OR PLASMA 4.2 mmol/L 3.5 - 5.0 11/20 Specimen Type: SERUM No comment entered. Ordering Provider: JOSHUA ESTEBAN Report Released Date/Time: Nov 07, 2022 02:38 PM Reporting Lab: [facility] [place] [facility] [address] [facility] [address] Performing Lab: [facility]PITALUSETS [facility] [address] [facility] [address] [facility]N [facility]OS[facility]ITALUSE [facility] BASIC METABOLI C PANEL (fasting ) CHLORIDE [MOLES/VOL UME] IN SERUM OR PLASMA 104 mmol/L 100 - 110 11/20 Specimen Type: SERUM No comment entered. Ordering Provider: JOSHUA ESTEBAN Report Released Date/Time: Nov 07, 2022 02:38 PM Reporting Lab: [facility] HOSPITALUSETS [facility] [address] [facility] [address] Performing Lab: [place] [facility] [facility]PITALUSETS [address] [address] [address] [address] [facility] HOSPITALUSE [facility] BASIC METABOLI C PANEL (fasting ) CARBON DIOXIDE, TOTAL [MOLES/VOL UME] IN SERUM OR PLASMA 27 meq/L 20 - 30 11/20 Specimen Type: SERUM No comment entered. Ordering Provider: JOSHUA ESTEBAN Report Released Date/Time: Nov 07, 2022 02:38 PM Reporting Lab: [facility] [facility] [address] [facility] [address] Performing Lab: [place] [facility]OSPITALUSETS [facility] [address] [facility] [address] [facility]OSPITALUSE [facility] BASIC METABOLI C PANEL (fasting ) CREATININE [MASS/VOLU ME] IN SERUM OR PLASMA 1.04 mg/dL 0.50 - 1.40 11/20 Specimen Type: SERUM No comment entered. Ordering Provider: JOSHUA ESTEBAN Report Released Date/Time: Nov 07, 2022 02:38 PM Reporting Lab: [facility] [address] [facility] [address] Performing Lab: [facility] [address] [facility] [address] [facility] BASIC METABOLI C PANEL (fasting ) GLOMERULAR FILTRATION RATE/1.73 SQ M.PREDICTE D [VOLUME RATE/AREA] IN SERUM, PLASMA OR BLOOD BY CREATININE -BASED FORMULA (CKD-EPI) >90mL/mi n 60 11/20 Specimen Type: SERUM No comment entered. Ordering Provider: JOSHUA ESTEBAN Report Released Date/Time: Nov 07, 2022 02:38 PM Reporting Lab: [facility] [address] [facility] [address] Performing Lab: [address] [address] [facility] Encounters Combined list of: 1) Encounters from Department of [facility] Affairs facilities going back up to thelast 18 months. 2) Encounters from the Department of Defense facilities going back up to 280 months. Location Location Details Encounter Type Encounter Number Reason For Visit Attending Provider ADM Date DC Date Status Disposition Source [place]([facility]) OUTPATIENT [id number] Notes Entered by: CHERIE GONZALES 28 Jul 2013 1407 ------- ------- ------- ------- -- Hearing test CHERIE GONZALES 07/28 Released w/o Limitations [place] [place] [place] OUTPATIENT [id number] [place] MAK 07/29 Released w/o Limitations [place] [facility] [place] OUTPATIENT [id number] Notes Entered by: Christina MCKEON 30 Jul 2013 1007 ------- ------- ------- ------- -- IMM LEANDRO ROBERT T 07/30 Released w/o Limitations [place] [place]IENT [id number] Notes Entered by: MADELINE MEDELLIN 24 Aug 2013 0701 ------- ------- ------- ------- -- ORTHO- HAND MILLY DIAZ 08/24 Released with Work/Duty Limitations [place] [facility] [place] [facility] [place] [id number] Notes Entered by: RODRIGUE NOBLES 13 Sep 2013 0826 ------- ------- ------- ------- -- IMM-ZAKIA SNYDER 09/13 Released w/o Limitations [facility] [place] [facility] [place] [facility] [place] [facility] [place] [id number] Notes Entered by: RODRIGUE NOBLES 01 Oct 2013 0702 ------- ------- ------- ------- -- DERM ZAKIA Bella 10/01 Released w/o Limitations [facility] [place]) [place], [place]([facility] [address]) OUTPATIENT [id number] Notes Entered by: AMANDA HUGHES 30 Dec 2018 0843 ------- ------- ------- ------- -- TENNILLE/ ALEC GARCIA 12/30 Released w/o Limitations [place]([facility] [address]) [facility] OUT[facility] [id number] Theater [facility] 05/08 Released w/[facility] Limitations [facility] [id number] Theater Provider 05/09 Released w/o Limitations [facility] [id number] Theater Provider 05/12 Released w/o Limitations [facility] [id number] Theater Provider 05/23 Released w/o Limitations [facility] [id number] Theater Provider 05/24 Released w/o Limitations [facility] [id number] Theater Provider 06/28 Released w/o Limitations [facility] [id number] Theater Provider 07/03 Released with Work/Duty Limitations [facility] [id number] Theater Provider 07/08 Released w/o Limitations [facility] [id number] 2 Theater Provider 07/09 Released w/o Limitations [facility] [id number] 0 Theater Provider 07/29 Released w/o Limitations [facility] [id number] 7 Theater Provider 08/07 Released w/o Limitations [facility] [id number] Theater Provider 08/15 Released w/[facility] Limitations [facility] OUTPATIENT [id number] Theater Provider 08/28 Released w/o Limitations [facility] OUTPATIENT [id number] Theater Provider 08/28 Released with Work/Duty Limitations [facility] OUTPATIENT [id number] Theater Provider 09/01 Released w/o Limitations [facility] OUTPATIENT [id number] Theater Provider 09/10 Released w/o Limitations [facility] OUTPATIENT [id number] Theater Provider 09/15 Sick at Home/Quarter s [facility] OUTPATIENT [id number] Theater Provider 09/16 Sick at Home/Quarter s [facility] OUTPATIENT [id number] Theater Provider 09/17 Sick at Home/Quarter s [facility] OUTPATIENT [id number] Theater Provider 10/09 Released w/o Limitations Theater Facilit [place] [address]) OUTPATIENT [id number] Notes Entered by: SARAI MARQUEZ 25 Nov 2019 1127 ------- ------- ------- ------- -- HERBER/ELMER ATKINS 11/25 Released w/o Limitations [place] [address]) [place] Hearing Conservat ion) OUTPATIENT [id number] Notes Entered by: CAM HU I 25 Nov 2019 1240 ------- ------- ------- ------- -- POST JADE HO I 11/25 Released w/o Limitations [place] Hearing Conserv [facility]) [place]) OUTPATIENT [id number] Notes Entered by: ASAD STEEL 25 Nov 2019 1305 ------- ------- ------- ------- -- HERMAN 638 SELENA REDDY 11/25 Released w/o Limitations [place] Phys[facility] l [facility]) [facility] OFF/OP CNSLTJ NEW/EST MOD 40 [id number] Diagnos is: ICD-10- CM G47.33 Obstruc tive sleep apnea (adult) ([facility])
CURIOSO-UY YINVICTORIA 05/27 [facility] Outpatient Encounter [id number] Diagnos is: ICD-10- CM F43.12 Post-tr aumatic stress disorde r, chronic
ST STEFANI GABRIELHANNAH Azalia 06/16 [facility] [facility] OFFICE O/P EST LOW 20-29 MIN [id number] Diagnos is: ICD-10- CM M54.59 Other low back pain
YONYUNJUSTYNA,IKE ISTOPHER M 06/23 [facility] Encounter [id number] 06/24 [facility] POS AIRWAY PRESSURE CPAP [id number] Diagnos is: ICD-10- CM G47.30 Sleep apnea, unspeci fied
TONIE QUEZADA P 06/26 [facility] Out[facility] Encounter [id number] 07/11 [facility] Encounter [id number] 09/05 [facility] [place] [facility] OFFICE O/P EST MOD 30-39 MIN [id number] Diagnos is: ICD-10- CM M54.59 Other low back pain
Zaheer ESTEBAN 09/17 [facility] En[facility] [id number] 09/19 [facility] Encounter [id number] 09/24 [facility] Encounter [id number] 09/26 [facility] Encounter [id number] 09/26 [facility] Encounter [id number] 09/26 [facility] Encounter [id number] 09/30 [facility] Out[facility] Encounter [id number] 10/02 [facility] [place] Outpatient Encounter [id number] 10/06 [facility] OFFICE O/P EST HI 40-54 MIN [id number] Diagnos is: ICD-10- CM F43.12 Post-tr aumatic stress disorde r, chronic
ST HARVEY EPHEN G 10/13 [place] [facility] Encounter [id number] 11/03 [facility] [place] Outpatient Encounter [id number] 12/18 [facility] [id number] Diagnos is: ICD-10- CM F43.12 Post-tr aumatic stress disorde r, chronic
GABRIEL,ST EPHEN G 12/18 [place] [facility] Out[facility] Encounter [id number] 12/22 [facility] Encounter [id number] 02/11 [facility] Out[facility] Encounter [id number] 02/19 [facility] OFFICE O/P NEW LOW 30 MIN [id number] Diagnos is: ICD-10- CM G47.33 Obstruc tive sleep apnea (adult) (pediat sarah)
PRISCA KEYES CTORIA J 02/22 [facility] Encounter [id number] 02/22 [facility] Out[facility] Encounter [id number] 03/26 [facility] [place] [facility] [place] Outpatient Encounter [id number] 03/29 [place] [facility] OFFICE O/P EST HI 40 MIN [id number] Diagnos is: ICD-10- CM F43.12 Post-tr aumatic stress disorde r, chronic
ST TYRA GABRIEL 04/01 [place] [facility] Outpatient Encounter [id number] 04/23 [facility] ORAL DEVICE/RODDY LIANCE CUSFAB [id number] Diagnos is: ICD-10- CM G47.33 Obstruc tive sleep apnea (adult) (pediat sarah)
PRISCA KEYES CTORIA J 04/26 [facility] Out[facility] Encounter [id number] 06/01 [facility] OFF[facility] O/P EST LOW 20 MIN [id number] Diagnos is: ICD-10- CM G47.33 Obstruc tive sleep apnea (adult) (ped[facility] sar[facility])
MAXWELL CERON,PRISCA CTORIA J 06/02 [facility] Outpatient Encounter [id number] 07/12 [facility] OFFICE O/P EST LOW 20 MIN [id number] Diagnos is: ICD-10- CM G47.33 Obstruc tive sleep apnea (adult) (pediat sarah)
PRISCA KEYES CTORIA J 07/13 [facility] OFFICE O/P EST LOW 20 MIN [id number] Diagnos is: ICD-10- CM G47.33 Obstruc tive sleep apnea (adult) (pediat sarah)
PRISCA KEYES CTORIA J 07/14 [facility] Outpatient Encounter [id number] 07/15 [facility] Out[facility] Encounter [id number] 07/26 [facility] [place] [place] OFFICE O/P EST LOW 20 MIN [id number] Diagnos is: ICD-10- CM G47.33 Obstruc tive sleep apnea (adult) (pediat sarah)
PRISCA KEYES CTORIA J 07/27 [facility] [place] Outpatient Encounter [id number] 07/29 [facility] [place] [facility] OFFICE O/P EST MOD 30 MIN [id number] 1BY. 12 Diagnos is: ICD-10- CM F43.12 Post-tr aumatic stress disorde r, chronic
ST TYRA GABRIEL G 08/05 [place] [facility] [place] [facility] Outpatient Encounter [id number] 09/21 [facility] Out[facility] Encounter [id number] 1.09/24 [facility] Out[facility] Encounter [id number] 1.10/06 [facility] [place] [facility] [place] [facility] Outpatient Encounter [id number] 1.10/08 [facility] [place] [facility] OFFICE O/P EST MOD 30 MIN [id number] Diagnos is: ICD-10- CM F43.12 Post-tr aumatic stress disorde r, chronic
ST TYRA GABRIEL G 10/11 [facility] [place] [facility] COMPREHENS VE ORAL EVALUATION [id number] 1. Diagnos is: ICD-10- CM G47.33 Obstruc tive sleep apnea (adult) (pediat sarah)
MAXWELL CERON,PRISCA CTORIA J 10/11 [facility] Out[facility] Encounter [id number] 10/26 [facility] [place] [place] CASE MGMT-ORAL HEALTH LIT [id number] 1. Diagnos is: ICD-10- CM K03.6 Deposit s [accret ions] on teeth<b r/> JOHNNA RODRIGUEZ 10/27 [place] [facility] [place] [facility] [place] [facility] OFFICE O/P EST LOW 20 MIN [id number] Diagnos is: ICD-10- CM G47.33 Obstruc tive sleep apnea (adult) (pediat sarah)
PRISCA KEYES 11[facility]02 [facility] [place] Procedures Combined list of: 1) Procedures from Department of Veterans Affairs facilities going back up to thelast 18 months, not all [place] non-surgical procedures are included; 2) All procedures from the Department of Defense facilities. Procedure Procedure Type Code Date Perfomer Comments Sourc e PATIENT EDUCATION, NOT OTHERWISE CLASSIFIED, NON-PHYSICIAN PROVIDER, GROUP, PER SESSION [facility] SCREENING TEST OF VISUAL ACUITY, QUANTITATIVE, BILATERAL [facility] TYPHOID VACCINE, CAPSULAR POLYSACCHARIDE (VICPS), FOR INTRAMUSCULAR USE [facility] SCREENING TEST OF VISUAL ACUITY, QUANTITATIVE, BILATERAL [facility] HEPATITIS A AND HEPATITIS B VACCINE (HEPA-HEPB), ADULT DOSAGE, FOR INTRAMUSCULAR USE [facility] ADENOVIRUS VACCINE, TYPE 7, LIVE, FOR ORAL USE [facility] FITTING OF SPECTACLES, EXCEPT FOR APHAKIA; MONOFOCAL [facility] EAR MOLD/INSERT, NOT DISPOSABLE, ANY TYPE [facility] Screening Test Of Visual Acuity, Quantitative, Bilateral Screening Test Of Visual Acuity, Quantitative, Bilateral 06023 ALEC MEYERS [facility] Hepatitis A And Hepatitis B (Intramuscular Use) Adult Dosage Hepatitis A And Hepatitis B (Intramuscular Use) Adult Dosage 26961 ZAKIA LAM DoD Immunization Administration By Injection, One Vaccine Immunization Administration By Injection, One Vaccine 86502 ZAKIA LAM Vaccines Adenovirus Type 7 Live, For Oral Use Vaccines Adenovirus Type 7 Live, For Oral Use 61780 ROBERT REEVES A single vaccine dose adminstered orally. DoD Vaccines Adenovirus Type 4 Live, For Oral Use Vaccines Adenovirus Type 4 Live, For Oral Use 96637 ROBERT REEVES A single vaccine dose adminstered orally. DoD Immunization Admin Intranasal / Oral Each Additional Vaccine Immunization Admin Intranasal / Oral Each Additional Vaccine 00965 ROBERT REEVES DoD Influenza Virus Vaccine Intranasal Live Attenuated Influenza Virus Vaccine Intranasal Live Attenuated 67579 ROBERT REEVES Flumist: Each sprayer contains a single dose of Flumist; approximately one-half of the contents was administered into each nostril. Patient was observed for 15 min with no adverse reactions. DoD Immunization Admin By Intranasal / Oral Route One Vaccine Immunization Admin By Intranasal / Oral Route One Vaccine 92786 ROBERT REEVES DoD Immunization Administration By Injection, Each Additional Vaccine Immunization Administration By Injection, Each Additional Vaccine 42160 ROBERT REEVES DoD Physician Supervised Injection Intramuscular Antibiotic Physician Supervised Injection Intramuscular Antibiotic 79634 ROBERT REEVES DoD Tdap Vaccine Tdap Vaccine 05489 ROEBRT REEVES Visit for an IM injection of 0.5mL of Boostrix (Tetanus and Diphtheria Toxoids and Acellular Pertussis). Was given in the Right Deltoid. Patient was observed for 15 min with no adverse reactions. [facility] Meningococcal Polysaccharide Diphtheria Toxoid Conjugate Vaccine ROBERT REEVES Visit for an IM injection of 0.5mL of Meningococcal Vaccine (Menactra). Was given in the Left Deltoid. Patient was observed for 15 min with no adverse reactions. [facility] Vaccines Viral Polio, Inactivated Vaccines Viral Polio, Inactivated 49544 ROBERT REEVES Visit for an IM injection of 0.5mL of IPOL (Poliovirus Vaccine Inactivated). Was given in the Right Deltoid. Patient was observed for 15 min with no adverse reactions. [facility] Hepatitis A And Hepatitis B (Intramuscular Use) Adult Dosage Hepatitis A And Hepatitis B (Intramuscular Use) Adult Dosage 93508 ROBERT REEVES Visit for an IM injection of 1mL of Twinrix (Hepatitis A and B combination). Was given in the Right Deltoid. Patient was observed for 15 min with no adverse reactions. [facility] Injection, penicillin g benzathine, 100,000 units ROBERT REEVES Visit for an IM injection of 1.2 million/units per 2 mL of Bicillin L-A (Penicillin G Benxathine injectable suspension). Was given in the Left upper quadrant, left buttock. Patient was observed for 15 min with no adverse reactions. [facility] Skin Test Anergy Tuberculin Intradermal Skin Test Anergy Tuberculin Intradermal 62537 ROBERT REEVES Visit for intradermal tuberculin testing of 0.1mL of Mantoux (Tuberculin Purified Protein Derivative). Was given in the Left forearm, volar surface. Patient was observed for 15 min with no adverse reactions. [facility] [employer] Fitting Monofocal Except For Aphakia [employer] Fitting Monofocal Except For Aphakia 28873 AVI ROSAS Determination Of Refractive State Determination Of Refractive State 21363 AVI ROSAS Ophthalmological New Patient Start Comprehensive Care Ophthalmological New Patient Start Comprehensive Care 53953 AVI ROSAS Ear mold/insert, not disposable, any type CHERIE GONZALES Physician Supervised Group Educational Services Physician Supervised Group Educational Services 56028 CHERIE GONZALES Audiometry Group Testing Audiometry Group Testing 76690 CHERIE GONZALES Screening Test Of Visual Acuity, Quantitative, Bilateral Screening Test Of Visual Acuity, Quantitative, Bilateral 62322 ELMER BETANCUR Threshold Audiogram (Pure Tone) Automated Threshold Audiogram (Pure Tone) Automated 0208T RIKKI CORBIN Patient education, not otherwise cla ified, non-physician provider, group, per se RIKKI Stone Social History Combined list of available smoking, tobacco, and other social history from Department of Defense and Veterans Affairs facilities. Social History Type Response Date Comment Sourc e Tobacco smoking status MAIS VA-TOBACCO NEVER USED 11/20/2022 [facility] D History of tobacco use VA-TOBACCO NEVER USED 11/26/2021 [place] D History of tobacco use VA-TOBACCO NEVER USED 04/21/2020 [facility] [place] [facility] This section is an empty social history section. DoD Plan of Care List of future care activities from Department of Veterans Affairs facilities. Additional future care activities may be listed in the Assessment and Plan section. Date/Time Care Activity Care Activity Detail Facili 12/02/2024 AMBULATORY - PSYCHIATRY AMBULATORY - PS[facility]C [facility] 12/30/2024 AMBULATORY - NONE AMBULATORY - NONE [facility] [place] [facility] 04/12/2025 AMBULATORY - MEDICINE AMBULATORY - MEDICI [place] [facility] [place] [facility] 04/26/2025 AMBULATORY - NONE AMBULATORY - NONE [facility] [place] [facility] 11/02/2024 Consult Order COMMUNITY CARE-D ENTAL SPECIALTY Cons [place] [employer] Animal Caretaker's Choice [facility] [place] [facility] 11/02/2024 Consult Order HOME SLEEP STUDY NOX/SPOPC OUTPT Cons [place] Animal Caretaker's Choice [place]
--- OUTSIDE RECORDS SUMMARY | 2024-11-05 09:36 | XMS_ITS | Encounter Summary ---
Author Name [facility] [place] Address [address] [place] [address] Support Name Relationship Address Phone LEIGHTON ALLEN Next of Kin [address] [address] LEIGHTON ALLEN Emergency Contact [address] [place] [address] Care Team Providers Care Bisque Cleaner Name Role Phone YVONNE ESTEBAN Primary Care [...] [facility] DEPT [facility] Aug 17, 2020 [id number] 00H [id number] [phone] ALLEN,CAR LOS PATIENT BC[place] ([place]) PREFERRED PROVIDER ORGANIZAT ION (PPO) ST OF [facility] DEPT OF [facility] Aug 17, 2020 [id number] 00H [id number] ALLEN,CAR LOS PATIENT [facility] PRES[facility] Aug 17, 2020 [id number] [phone] ALLEN,CAR LOS PATIENT [facility] PRESCRIPT ION [facility] Aug 17, 2020 [id number] [phone] ALLEN,CAR LOS PATIENT Selected Encounter This section includes the information on record at CT for the Encounter. Date/Time Encounter Type Encounter Description Reason Pro vider Source Dec 22, 2023 08:08 AM Outpatient Encounter COMMUNITY CARE CONSULT IHE Encounter Template Text not used by CT Plan of Treatment: Future Appointments (+ 6 months) and Future Tests (+/- 45 days) The Plan of Treatment section includes future care activities for the patient [facility] This section includes future appointments and future orders which are active, pending or scheduled. Future Appointments This section includes appointments that were scheduled to occur 6 months from the date of the Encounter, up to a maximum of 20 appointments. The data comes from all [place] treatment facilities. Appointment Date/Time Appointment Type Appointme nt Facility Name Feb 23, 2024 01:00 PM [facility] March 29[facility] 2024 03:00 PM AMBULATORY - PSYCHIATRY [facility] April 01, 2024 04:00 PM AMBULATORY - PSYCHIATRY [facility] Apr 26, 2024 09:30 AM [facility] Jun 02, 2024 09:30 AM [facility] Social History: Smoking Status (Most current) and Tobacco Use (All prior to encounter date) This section includes the most current, and the historical, smoking and tobacco- related health factors from the [place] facility where the Encounter took place. Current Smoking Status This section includes the most current smoking, or tobacco-related health factor, from the [place] facility where the Encounter took place. Date/Time Current Smoking Status Comment Mayra olivarez Apr 21, 2020 02:14 PM VA-TOBACCO NEVER USED [facility] Encounter Notes: All associated encounter notes This section contains the clinical notes associated to the Encounter. Date/Time Encounter Note(s) Provider Source Dec 22, 2023 08:08 AM DENTISTRY ADMINIST RATIVE NOTE: LOCAL TITLE: DENTAL ADMINISTRATIVE NOTE STANDARD TITLE: DENTISTRY ADMINISTRATIVE NOTE DATE OF NOTE: DEC 22, 2023@08:08 ENTRY DATE: DEC 22, 2023@08:08:16 AUTHOR: MARTHA MARADIAGA COSIGNER: URGENCY: STATUS: COMPLETED LEFT VM FOR PATIENT STATING WE DO NOT HAVE ANY PENDING TREATMENT PLANS FOR OS REF FOR IMPLANTS. ADVISED TO CALL CC TO REQUEST REF . /es/ MARTHA Schwab. RAMSES MARADIAGA, BS STAFF, DENTAL HYGIENIST Signed: 12/22/2023 08:09 MARTHA MARADIAGA [facility]
--- OUTSIDE RECORDS SUMMARY | 2024-11-05 09:37 | XMS_ITS | Encounter Summary ---
Author Name [facility] [place] Organization [facility] [place] Address [address] [place] [address] Support Name Relationship Address Phone TIFFANY LEIGHTON Next of Kin [address] [address] LEIGHTON ALLEN Emergency Contact [address] [place] [address] Care Team Providers Care Radiation Oncology Therapist Name Role Phone YVONNE ESTEBAN Primary Care [...] Relationship to Policy Gloria JULIANNA BCBS OF [place] POINT OF SERVICE [facility] DEPT OF COR Aug 17, 2020 [id number] [phone] ALLEN,CAR LOS PATIENT [place] ([place]) PREFERRED PROVIDER ORGANIZAT ION (PPO) ST OF [facility] DEPT OF [facility] Aug 17, 2020 [id number] [id number] [phone] ALLEN,CAR LOS PATIENT [facility] PRESCRIPT [facility]ON [facility] Aug 17, 2020 [id number] [phone] ALLEN,CAR LOS PATIENT [facility] PRES[facility]ON [facility] Aug 17, 2020 [id number] [phone] ALLEN,CAR LOS PATIENT Selected Encounter This section includes the information on record at [place] for the Encounter. Date/Time Encounter Type Encounter Description Reason Pro vider Source Dec 18, 2023 08:30 AM Outpatient Encounter [facility] Encounter Template Text not used by [place] Plan of Treatment: Future Appointments (+ 6 months) and Future Tests (+/- 45 days) The Plan of Treatment section includes future care activities for the patient from all [place] [facility] This section includes future appointments and future orders which are active, pending or scheduled. Future Appointments This section includes appointments that were scheduled to occur 6 months from the date of the Encounter, up to a maximum of 20 appointments. The data comes from all [place] treatment facilities. Appointment Date/Time Appointment Type Appointme nt Facility Name Feb 23, 2024 01:00 PM AMBULATORY - NONE [facility] March 29, 2024 03:00 PM AMBULATORY - PSYCHIATRY [facility] April 01, 2024 04:00 PM AMBULATORY - PS[facility]CHIATRY [facility] Apr 26, 2024 09:30 AM AMBULATORY - NONE [facility] Jun 02, 2024 09:30 AM AMBULATORY - NONE [facility] Social History: Smoking Status (Most current) and Tobacco Use (All prior to encounter date) This section includes the most current, and the historical, smoking and tobacco- related health factors from the [place] facility where the Encounter took place. Current Smoking Status This section includes the most current smoking, or tobacco-related health factor, from the [place] facility where the Encounter took place. Date/Time Current Smoking Status Comment Mayra olivarez Nov 20, 2022 01:00 PM PR-TOBACCO NEVER USED [place] Tobacco Use History This section includes a history of the smoking, or tobacco-related health factors, that were collected on or before the date of the Encounter. The data comes from the [place] facility where the Encounter took place. Date/Time Smoking Status/Tobacco Use Comment Megan acreji Nov 26, 2021 11:30 AM PR-TOBACCO NEVER USED [place]
--- OUTSIDE RECORDS SUMMARY | 2024-11-05 09:37 | XMS_ITS | Encounter Summary ---
Author Name [place] Address [address] [place] [address] Support Name Relationship Address Phone TIFFANY LEIGHTON Next of Kin [address] [place] [address] LEIGHTON ALLEN Emergency Contact [address] [place] [address] Care Team Providers Care Sales Service Manager Name Role Phone YVONNE ESTEBAN Primary Care [...] CT DEPT OF COR Aug 17, 2020 [id number] 00H [id number] [phone] ALLEN,CAR LOS PATIENT [place] (BLUE CARD) PREFERRED PROVIDER ORGANIZAT ION (PPO) ST OF [facility] DEPT OF COR Aug 17, 2020 [id number] [id number] [phone] ALLEN,CAR LOS PATIENT [facility] PRES[facility] Aug 17, 2020 [id number] [phone] ALLEN,CAR LOS PATIENT [facility] PRESCRIPT ION [facility] Aug 17, 2020 [id number] [phone] ALLEN,CAR LOS PATIENT Selected Encounter This section includes the information on record at [place] for the Encounter. Date/Time Encounter Type Encounter Description Reason Pro vider Source Jul 12, 2024 09:10 AM Outpatient Encounter DENTAL IHE Encounter Template Text not used by [place] Plan of Treatment: Future Appointments (+ 6 months) and Future Tests (+/- 45 days) The Plan of Treatment section includes future care activities for the patient from all [place] [facility]. This section includes future appointments and future orders which are active, pending or scheduled. Future Appointments This section includes appointments that were scheduled to occur 6 months from the date of the Encounter, up to a maximum of 20 appointments. The data comes from all [place] treatment [facility]. Appointment Date/Time Appointment Type Appointme nt Facility Name Jul 13, 2024 10:00 AM AMBULATORY - NONE [place] [facility] [place] [facility] Jul 14, 2024 09:30 AM AMBULATORY - NONE [place] [facility] [facility] Jul 27, 2024 10:30 AM AMBULATORY - NONE [place] [facility] [facility] Aug 05, 2024 02:00 PM AMBULATORY - PSYCHIATRY [facility] Oct 11, 2024 09:00 AM AMBULATORY - PSYCHIATRY [facility] Oct 11, 2024 09:30 AM AMBULATORY - NONE [place] [facility] [place] [facility] Oct 27, 2024 04:00 PM AMBULATORY - NONE [place] [facility] [facility] Nov 02, 2024 09:30 AM AMBULATORY - NONE [place] [facility] [facility] Dec 02, 2024 09:00 AM AMBULATORY - PSYCHIATRY [facility] Dec 30, 2024 10:30 AM AMBULATORY - NONE [place] [facility] [facility] Active, Pending, and Scheduled Orders This section includes a listing of several types of active, pending, and scheduled orders, including clinic medications orders, diagnostic test orders, procedure orders and consult orders; where the start date of the order is 45 days before the date of the Encounter or 45 days after the date of theEncounter. The data comes from all [facility]. Test Date/Time Test Type Test Details Facility Name Jun 25, 2024 04:24 PM Consult Order COMMUNITY CARE-DENTAL GENERAL Cons Android Software Engineer's Choice [facility] Social History: Smoking Status (Most current) and Tobacco Use (All prior to encounter date) This section includes the most current, and the historical, smoking and tobacco- related health factors from the [place] facility where the Encounter took place. Current Smoking Status This section includes the most current smoking, or tobacco-related health factor, from the [place] facility where the Encounter took place. Date/Time Current Smoking Status Comment Facil ity Apr 21, 2020 02:14 PM VA-TOBACCO NEVER USED [facility] Encounter Notes: All associated encounter notes This section contains the clinical notes associated to the Encounter. Date/Time Encounter Note(s) Provider Source Jul 12, 2024 09:10 AM TELEPHONE ENCOUNTE R NOTE: LOCAL TITLE: TELEPHONE NOTE/SPECIALTY CLINIC STANDARD TITLE: TELEPHONE ENCOUNTER NOTE DATE OF NOTE: JUL 12, 2024@09:10 ENTRY DATE: JUL 12, 2024@09:10:41 AUTHOR: MARSHAL HAGAN EXP COSIGNER: URGENCY: STATUS: COMPLETED Called and spoke with pt to remind them that they have a VVC appt with the dental clinic on 07/13/2024 at 1000. /mercedes/ MARSHAL HAGAN ADVANCED MODEL MAKER Signed: 07/12/2024 09:12 MARSHAL HAGAN [facility]
--- OUTSIDE RECORDS SUMMARY | 2024-11-05 09:37 | XMS_ITS | Encounter Summary ---
Author Name [place] Address [address] [place] [address] Support Name Relationship Address Phone TIFFANY LEIGHTON Next of Kin [address] [place] [address] LEIGHTON ALLEN Emergency Contact [address] [place] [address] Care Team Providers Care Extractor Operator Solvent Process Name Role Phone YVONNE ESTEBAN Primary Care [...] CT DEPT OF COR Aug 17, 2020 [id number] [id number] [phone] ALLEN,CAR LOS PATIENT BCBS [place] (BLUE CARD) PREFERRED PROVIDER ORGANIZAT ION (PPO) ST OF [facility] DEPT OF COR Aug 17, 2020 [id number] [id number] ALLEN,CAR LOS PATIENT [facility] PRES[facility] Aug 17, 2020 [id number] ALLEN,CAR LOS PATIENT [place] PRESCRIPT ION [facility] Aug 17, 2020 [id number] [phone] ALLEN,CAR LOS PATIENT Selected Encounter This section includes the information [place] at [place] for the Encounter. Date/Time Encounter Type Encounter Description Reason Pro vider Source Jul 26, 2024 08:51 AM Outpatient Encounter DENTAL IHE Encounter Template Text not used by [place] Plan of Treatment: Future Appointments (+ 6 months) and Future Tests (+/- 45 days) The Plan of Treatment section includes future care activities for the patient from all [place] [facility] This section includes future appointments and future orders which are active, pending or scheduled. Future Appointments This section includes appointments that were scheduled to occur 6 months from the date of the Encounter, up to a maximum of 20 appointments. The data comes from all [facility]. Appointment Date/Time Appointment Type Appointme nt Facility Name Jul 27, 2024 10:30 AM [facility] Aug 05, 2024 02:00 PM AMBULATORY - PSYCHIATRY [facility] Oct 11, 2024 09:00 AM AMBULATORY - PSYCHIATRY [facility] Oct 11, 2024 09:30 AM [facility] Oct 27, 2024 04:00 PM [facility] Nov 02, 2024 09:30 AM [facility]UL[facility] - NONE [facility] Dec 02, 2024 09:00 AM AMBULATORY - PSYCHIATRY [facility] Dec 30, 2024 10:30 AM AMBULATORY - NONE [facility] Active, Pending, and Scheduled Orders This section includes a listing of several types of active, pending, and scheduled orders, including clinic medications orders, diagnostic test orders, procedure orders and consult orders; where the start date of the order is 45 days before the date of the Encounter or 45 days after the date of theEncounter. The data comes from all [facility]. Test Date/Time Test Type Test Details Facility Name Jun 25, 2024 04:24 PM Consult Order COMMUNITY CARE-DENTAL GENERAL Cons Physician Assistant's Choice [facility] Social History: Smoking Status (Most current) and Tobacco Use (All prior to encounter date) This section includes the most current, and the historical, smoking and tobacco- related health factors from the [place] facility where the Encounter took place. Current Smoking Status This section includes the most current smoking, or tobacco-related health factor, from the [place] facility where the Encounter took place. Date/Time Current Smoking Status Comment Facil ity Apr 21, 2020 02:14 PM VA-TOBACCO NEVER USED [place] [facility] [place] [facility] Encounter Notes: All associated encounter notes This section contains the clinical notes associated to the Encounter. Date/Time Encounter Note(s) Provider Source Jul 26, 2024 08:51 AM DENTISTRY TELEPHON E ENCOUNTER NOTE: LOCAL TITLE: TELEPHONE NOTE/DENTAL STANDARD TITLE: DENTISTRY TELEPHONE ENCOUNTER NOTE DATE OF NOTE: JUL 26, 2024@08:51 ENTRY DATE: JUL 26, 2024@08:51:56 AUTHOR: ALICIA LAROSE EXP COSIGNER: URGENCY: STATUS: COMPLETED Spoke with pt to confirm dental vvc appointment on 07/27/2024 at 10:30 am. /mercedes/ ALICIA LAROSE ADVANCED TRAIN EXAMINER Signed: 07/26/2024 08:54 ALICIA LAROSE [facility]
--- OUTSIDE RECORDS SUMMARY | 2024-11-05 09:37 | XMS_ITS ---
Author Name [place] Address [address] [place] [address] Support Name Relationship Address Phone LEIGHTON ALLEN Next of Kin [address] [place] [address] LEIGHTON ALLEN Emergency Contact [address] [address] Care Team Providers Care Finished Cigar Maker Name Role Phone YVONNE ESTEBAN Primary Care [...] CT DEPT OF COR Aug 17, 2020 [id number] ALLEN,CAR LOS PATIENT BCBS [place] (BLUE CARD) PREFERRED PROVIDER ORGANIZAT ION (PPO) ST OF CT DEPT OF COR Aug 17, 2020 [id number] [phone] ALLEN,CAR LOS PATIENT [facility] PRESCRIPT I[facility] Aug 17, 2020 [id number] [phone] ALLEN,CAR LOS PATIENT [facility] PRESCRIPT ION [facility] Aug 17, 2020 [id number] [phone] ALLEN,CAR LOS PATIENT Selected Encounter This section includes the information on record at [place] for the Encounter. Date/Time Encounter Type Encounter Description Reason Provider Source Jul 14, 2024 09:30 AM OFFICE O/P EST LOW 20 MIN DENTAL ICD-10-CM G47.33 Obstructive sleep apnea (adult) (pediatric) KAYCE KEYES IHE Encounter Template Text not used by [place] Assessments - Encounter Diagnoses This section includes the primary and secondary diagnoses documented for the Encounter. Date/Time Primary/Secondary Diagnosis Diagnosis Name Provider Source Jul 14, 2024 01:59 PM PRIMARY Obstructive sleep apnea (adult) (pediatric) [facility] Plan of Treatment: Future Appointments (+ 6 months) and Future Tests (+/- 45 days) The Plan of Treatment section includes future care activities for the patient from all [place] [facility]. This section includes future appointments and future orders which are active, pending or scheduled. Future Appointments This section includes appointments that were scheduled to occur 6 months from the date of the Encounter, up to a maximum of 20 appointments. The data comes from all [facility]. Appointment Date/Time Appointment Type Appointme nt Facility Name Jul 27, 2024 10:30 AM AMBULATORY - NONE [place] [facility] [place] [facility] Aug 05, 2024 02:00 PM AMBULATORY - PSYCHIATRY [facility] Oct 11, 2024 09:00 AM AMBULATORY - PSYCHIATRY [facility] Oct 11, 2024 09:30 AM AMBULATORY - NONE [place] [facility] [place] [facility] Oct 27, 2024 04:00 PM AMBULATORY - NONE [place] [facility] [place] [facility] Nov 02, 2024 09:30 AM AMBULATORY - NONE [place] [facility] [place] [facility] Dec 02, 2024 09:00 AM AMBULATORY - PSYCHIATRY [facility] Dec 30, 2024 10:30 AM [facility] Active, Pending, and Scheduled Orders This section includes a listing of several types of active, pending, and scheduled orders, including clinic medications orders, diagnostic test orders, procedure orders and consult orders; where the start date of the order is 45 days before the date of the Encounter or 45 days after the date of theEncounter. The data comes from all [place] treatment facilities. Test Date/Time Test Type Test Details Facility Name Jun 25, 2024 04:24 PM Consult Order COMMUNITY CARE-DENTAL GENERAL Cons Jewel Waxer's Choice [facility] [employer] [employer] Social History: Smoking Status (Most current) and [...] Facil ity Apr 21, 2020 02:14 PM [place]-TOBACCO NEVER USED [facility] [employer] [facility] Encounter Notes: All associated encounter notes This section contains the clinical notes associated to the Encounter. Date/Time Encounter Note(s) Provider Source Jul 14, 2024 01:52 PM DENTISTRY NOTE: LOCAL TITLE: DENTAL NOTE STANDARD TITLE: DENTISTRY NOTE DATE OF NOTE: JUL 14, 2024@13:52 ENTRY DATE: JUL 14, 2024@13:59:04 AUTHOR: EVY KEYES EXP COSIGNER: URGENCY: STATUS: COMPLETED Patient Name: DENISSE ALLEN, : 1990, Age: 33 Visit: S: Jul 14, 2024@09:30 [facility] DENTAL DMD 4 AM. Primary PCE Diagnosis: G47.33 (OBSTRUCTIVE SLEEP APNEA (ADULT) (PEDIATRIC)). Dental Category: 15-OPC, Class IV. Treatment Status: Active. Completed Care: ([id number]) OFFICE O/P EST LOW 20 MIN. DX: G47.33 Obstructive Sleep Apnea (Adult) (Pediatric) (D9948) ADJ CUSTOM SLEEP APNEA APPL. DX: G47.33 Obstructive Sleep Apnea (Adult) (Pediatric) - - - - - - - - - - - - - - - - - - - - - - - - - - - - - - Patient presents for follow up of CHARLES Oral Appliance no contraindications, patient consents to appointment Medication Reconciliation - no contraindications with dental Rx noted Appliance Type: ProSomnus CA [employer] Reviewed appliance use - used appliance last night and able to identify the teeth which have discomfort are 8, 9,10, and 23, 24, 25. Fit of appliance appliance is very snug lazaro noted he woke up at 4 am from tooth pressure and removed appliance I made interproximal reflief adjustments to the appliance for the specific teeth and patient re-tried in the appliance - unsure if it felt very different but may have had less of a rigid nitrate operator. Patient declined further adjuting until he gives it a few nights trial. agreed to see how the next week went. advised we would not add any protrusive movements until lazaro able to consistently and comfortably use the appliance. Also discusse community dentist past and planned treatment for #8 and 9 - patient had a composite #8FI done by them recently which delaminated, patient felt it didn't need doing in the first place and that now they want to place crowns. I reviewed - and would recommend either consider enamel polishing with a bonding glaze or composites over crowns. Offerred patient a FTF visit for my next available time likely August to review, patient agreed. Patient given time to have all questions answered FTF time 15 minutes /mercedes/ ISABELLE CERON Steamer Operator, Chief Dental Service Signed: 07/14/2024 13:59 ISABELLE KEYES [facility]
--- OUTSIDE RECORDS SUMMARY | 2024-11-05 09:37 | XMS_ITS | Encounter Summary ---
Author Name [place] Address [address] [place] [address] Support Name Relationship Address Phone TIFFANY LEIGHTON Next of Kin [address] [place] [address] LEIGHTON ALLEN Emergency Contact [address] [place] [address] Care Team Providers Care Pilot Plant Research Technician Name Role Phone YVONNE ESTEBAN Primary Care [...] CT DEPT OF COR Aug 17, 2020 [id number] ALLEN,CAR LOS PATIENT BCBS [place] (BLUE CARD) PREFERRED PROVIDER ORGANIZAT ION (PPO) ST OF CT DEPT OF COR Aug 17, 2020 [id number] [phone] ALLEN,CAR LOS PATIENT [facility] PRESCRIPT I[facility] Aug 17, 2020 [id number] ALLEN,CAR LOS PATIENT [place] PRESCRIPT ION [facility] Aug 17, 2020 [id number] [phone] ALLEN,CAR LOS PATIENT Selected Encounter This section includes the information on record at [place] for the Encounter. Date/Time Encounter Type Encounter Description Reason Pro vider Source Jul 15, 2024 09:27 AM Outpatient Encounter DENTAL IHE Encounter Template Text not used by [place] Plan of Treatment: Future Appointments (+ 6 months) and Future Tests (+/- 45 days) The Plan of Treatment section includes future care activities for the patient from all [place] [facility]. This section includes future appointments and future orders which are active, pending or scheduled. Future Appointments This section includes appointments that were scheduled to occur 6 months from the date of the Encounter, up to a maximum of 20 appointments. The data comes from all [facility]. Appointment Date/Time Appointment Type Appointme nt Facility Name Jul 27, 2024 10:30 AM [facility] Aug 05, 2024 02:00 PM AMBULATORY - PSYCHIATRY [facility] Oct 11, 2024 09:00 AM AMBULATORY - PSYCHIATRY [facility] Oct 11, 2024 09:30 AM [facility] NONE [facility] Oct 27, 2024 04:00 PM [facility] Nov 02, 2024 09:30 AM [facility] NONE [facility] Dec 02, 2024 09:00 AM AMBULATORY - PSYCHIATRY [facility] Dec 30, 2024 10:30 AM [facility] NONE [facility] Active, Pending, and Scheduled Orders This section includes a listing of several types of active, pending, and scheduled orders, including clinic medications orders, diagnostic test orders, procedure orders and consult orders; where the start date of the order is 45 days before the date of the Encounter or 45 days after the date of theEncounter. The data comes from all [facility]. Test Date/Time Test Type Test Details Facility Name Jun 25, 2024 04:24 PM Consult Order COMMUNITY CARE-DENTAL GENERAL Cons Washing Machine Operator's Choice [facility] Social History: Smoking Status (Most current) and Tobacco Use (All prior to encounter date) This section includes the most current, and the historical, smoking and tobacco- related health factors from the [place] facility where the Encounter took place. Current Smoking Status This section includes the most current smoking, or tobacco-related health factor, from the [place] facility where the Encounter took place. Date/Time Current Smoking Status Comment Facil juanis Apr 21, 2020 02:14 PM VA-TOBACCO NEVER USED [facility] Encounter Notes: All associated encounter notes This section contains the clinical notes associated to the Encounter. Date/Time Encounter Note(s) Provider Source Jul 15, 2024 09:27 AM DENTISTRY TELEPHON E ENCOUNTER NOTE: LOCAL TITLE: TELEPHONE NOTE/DENTAL STANDARD TITLE: DENTISTRY TELEPHONE ENCOUNTER NOTE DATE OF NOTE: JUL 15, 2024@09:27 ENTRY DATE: JUL 15, 2024@09:27:45 AUTHOR: ALICIA LAROSE EXP COSIGNER: URGENCY: STATUS: COMPLETED [facility] Toll Free Number Primary Care Telephone Assistance can be reached at ext. [phone] option 2 [facility] scheduling can be reached at ext. [phone] option 2 [facility] scheduling can be reached at ext. [phone] option 3 JUL 15, 2024 DENISSE ALLEN [address] [place] [id number] Dear DENISSE ALLEN We have been attempting to contact you by phone to schedule a dental appointment that was requested for you. If you are interested in scheduling this appointment, please call us back at [phone] or Toll Free and follow the prompts for our Telephone Call Center. Our clinic hours are Friday through Friday 8:00 am to 4:30 pm. Sincerely, Your Dental Care Team [address] [address] /es/ ALICIA LAROSE ADVANCED MANDREL PRESS HAND Signed: 07/15/2024 09:27 ALICIA LAROSE [facility]
--- OUTSIDE RECORDS SUMMARY | 2024-11-05 09:37 | XMS_ITS ---
Author Name [facility] [place] Address [address] [place] [address] Support Name Relationship Address Phone ELIGHTON ALLEN Next of Kin [address] [place] [address] LEIGHTON ALLEN Emergency Contact [address] [place] [address] Care Team Providers Care Medical Representative Name Role Phone YVONNE ESTEBAN Primary Care [...] CT DEPT OF COR Aug 17, 2020 [id number] ALLEN,CAR LOS PATIENT BCBS [place] (BLUE CARD) PREFERRED PROVIDER ORGANIZAT ION (PPO) ST OF [facility] DEPT OF COR Aug 17, 2020 [id number] ALLEN,CAR LOS PATIENT [facility]EM[facility] PRESCRIPT ION [facility] Aug 17, 2020 [id number] ALLEN,CAR LOS PATIENT [facility] PRESCRIPT ION [facility] Aug 17, 2020 [id number] [phone] ALLEN,CAR LOS PATIENT Selected Encounter This section includes the information on record at [place] for the Encounter. Date/Time Encounter Type Encounter Description Reason Provider Source Apr 26, 2024 09:30 AM ORAL DEVICE/APPLIANC E CUSFAB DENTAL ICD-10-CM G47.33 Obstructive sleep apnea (adult) (pediatric) KAYCE KEYES IHE Encounter Template Text not used by [place] Assessments - Encounter Diagnoses This section includes the primary and secondary diagnoses documented for the Encounter. Date/Time Primary/Secondary Diagnosis Diagnosis Name Provider Source Apr 26, 2024 01:50 PM PRIMARY Obstructive sleep apnea (adult) (pediatric) KAYCE KEYES [facility] Plan of Treatment: Future Appointments (+ 6 months) and Future Tests (+/- 45 days) The Plan of Treatment section includes future care activities for the patient from all [place] [facility]. This section includes future appointments and future orders which are active, pending or scheduled. Future Appointments This section includes appointments that were scheduled to occur 6 months from the date of the Encounter, up to a maximum of 20 appointments. The data comes from all [place] treatment facilities. Appointment Date/Time Appointment Type Appointme nt Facility Name Jun 02, 2024 09:30 AM [facility] Jul 13, 2024 10:00 AM [facility] Jul 14, 2024 09:30 AM [facility] Jul 27, 2024 10:30 AM [facility] Aug 05, 2024 02:00 PM AMBULATORY - PSYCHIATRY [facility] Oct 11, 2024 09:00 AM AMBULATORY - PS[facility]CHIATRY [facility] Oct 11, 2024 09:30 AM [facility] Social History: Smoking Status (Most current) and Tobacco Use (All prior to encounter date) This section includes the most current, and the historical, smoking and tobacco- related health factors from the [place] facility where the Encounter took place. Current Smoking Status This section includes the most current smoking, or tobacco-related health factor, from the [place] facility where the Encounter took place. Date/Time Current Smoking Status Comment Facil juanis Apr 21, 2020 02:14 PM VA-TOBACCO NEVER USED [facility] [place] [facility] Encounter Notes: All associated encounter notes This section contains the clinical notes associated to the Encounter. Date/Time Encounter Note(s) Provider Source Apr 26, 2024 01:48 PM DENTISTRY NOTE: LOCAL TITLE: DENTAL NOTE STANDARD TITLE: DENTISTRY NOTE DATE OF NOTE: APR 26, 2024@13:48 ENTRY DATE: APR 26, 2024@13:50:41 AUTHOR: EVY KEYES COSIGNER: URGENCY: STATUS: COMPLETED Patient Name: DENISSE ALLEN, : 1990, Age: 33 Visit: S: Apr 26, 2024@09:30 CWM/NO/DENTAL/DMD4. Primary PCE Diagnosis: G47.33 (Obstructive sleep apnea (adult) (pediatric)). Dental Category: 15-OPC, Class IV. Treatment Status: Active. Completed Care: (E0486) ORAL DEVICE/APPLIANCE CUSFAB. DX: G47.33 Obstructive Sleep Apnea (Adult) (Pediatric) - - - - - - - - - - - - - - - - - - - - - - - - - - - - - - Patient presents for delivery of CHARLES Oral Appliance no contraindications to treatment Reviewed appliance design type - ProSomnus [employer] Fit appliance, ensured no excess pressure to teeth, verified correct seating; protrusive adjustment made L0 selected made three turns bilaterally pt not sure if he felt much of a difference, but will take a few days to adjust to appliance use pt noted it felt very tight to teeth noted wisdom teeth in mandibular arch not fully covered. Protrusive ramps very close to maxillary gingiva but pt denied discomfort to tissue Demonstrated calibration of appliance patient demonstrated ability to seat and remove appliance reviewed home care instructions, cleaning, maintenance, cautions. Patient to call if concerns arise in the next six weeks or so. Reviewed risks/benefits again: if patient experiences muscle or jaw pain or tooth pressure/sensitivity that does not resolve over 3-5 days and impacts normal daily routine, worsens over the course of the week, or otherwise impacts normal eating, patient to discontinue use of appliance and contact the clinic. Patient to return to Pulmonary for evaluation in approximately eight weeks to assess function of appliance in managing CHARLES. Advised appliance designed to function for up to five years, we would need a new consult to re-evaluate if a new appliance is needed in the future. in- [facility] follow-up in approx. 2-3 weeks /mercedes/ ISABELLE CERON Client Operations Manager, Chief Dental Service Signed: 04/26/2024 13:50 ISABELLE KEYES [facility]
--- OUTSIDE RECORDS SUMMARY | 2024-11-05 09:37 | XMS_ITS | Encounter Summary ---
Author Name [place] Organization [place] Address [address] [place] [address] Support Name Relationship Address Phone TIFFANY LEIGHTON Next of Kin [address] [address] LEIGHTON ALLEN Emergency Contact [address] [address] Care Team Providers Care Crab Meat Processor Name Role Phone YVONNE ESTEBAN Primary Care [...] Relationship to Policy Gloria JULIANNA BCBS OF [place] POINT OF SERVICE [facility] DEPT OF COR Aug 17, 2020 [id number] ALLEN,CAR LOS PATIENT BCBS [place] (BLUE CARD) PREFERRED PROVIDER ORGANIZAT ION (PPO) ST OF [facility] DEPT OF COR Aug 17, 2020 [id number] ALLEN,CAR LOS PATIENT CAREM[facility] PRESCRIPT ION [facility] Aug 17, 2020 [id number] [phone] ALLEN,CAR LOS PATIENT [facility] PRESCRIPT ION [facility] Aug 17, 2020 [id number] ALLEN,CAR LOS PATIENT Selected Encounter This section includes the information on record at [place] for the Encounter. Date/Time Encounter Type Encounter Description Reason Pro vider Source March 29, 2024 03:00 PM Outpatient Encounter [facility] Encounter Template Text not used by [place] Plan of Treatment: Future Appointments (+ 6 months) and Future Tests (+/- 45 days) The Plan of Treatment section includes future care activities for the patient from all [place] [facility]. This section includes future appointments and future orders which are active, pending or scheduled. Future Appointments This section includes appointments that were scheduled to occur 6 months from the date of the Encounter, up to a maximum of 20 appointments. The data comes from all [place] treatment facilities. Appointment Date/Time Appointment Type Appointme nt Facility Name April 01, 2024 04:00 PM AMBULATORY - PSYCHIATRY [facility] Apr 26, 2024 09:30 AM AM[facility]UL[facility] - NONE [facility] Jun 02, 2024 09:30 AM AMBULATORY - NONE [facility] [place] [facility] Jul 13, 2024 10:00 AM AMBULATORY - NONE [facility] [place] [facility] Jul 14, 2024 09:30 AM AMBULATORY - NONE [facility] [place] [facility] Jul 27, 2024 10:30 AM AMBULATORY - NONE [facility] [place] [facility] Aug 05, 2024 02:00 PM AMBULATORY - PSYCHIATRY [facility] Social History: Smoking Status (Most current) and Tobacco Use (All prior to encounter date) This section includes the most current, and the historical, smoking and tobacco- related health factors from the [place] facility where the Encounter took place. Current Smoking Status This section includes the most current smoking, or tobacco-related health factor, from the [place] facility where the Encounter took place. Date/Time Current Smoking Status Comment Mayra olivarez Nov 20, 2022 01:00 PM [place]-TOBACCO NEVER USED [place] Tobacco Use History This section includes a history of the smoking, or tobacco-related health factors, that were collected on or before the date of the Encounter. The data comes from the [place] facility where the Encounter took place. Date/Time Smoking Status/Tobacco Use Comment Megan mcconnell Nov 26, 2021 11:30 AM [place]-TOBACCO NEVER USED [place] Encounter Notes: All associated encounter notes This section contains the clinical notes associated to the Encounter. Date/Time Encounter Note(s) Provider Source March 29, 2024 03:09 PM CLERICAL NOTE: LOCAL TITLE: APPOINTMENT NO SHOW STANDARD TITLE: CLERICAL NOTE DATE OF NOTE: MARCH 29, 2024@15:09 ENTRY DATE: MARCH 29, 2024@15:10 AUTHOR: MIGUELITO GABRIEL EXP COSIGNER: URGENCY: STATUS: COMPLETED APPOINTMENT NO SHOW Has ADDENDA Patient Name: DENISSE ALLEN Patient SSN: [id number] Date and time of Appointment No show : 03/29/24 15:00 PATIENT PHONE - PHONE NUMBER [CELLULAR] - Patient's medical record was reviewed. Follow-up actions were determined and initiated: Please check/complete as applies: [X]Telephoned Directly -- left VM x1 - to encourage pt to federico [ ]Re-scheduled for next available appt [X]Sent a N0-show letter ( must call for appointment) [ ]Other (Emergent/Overbook, etc.): Additional Comments: Future Clinic Visits 04/26/2024 09:30 CWM/NO/DENTAL/DMD4 /es/ MIGUELITO GABRIEL MD STAFF PSYCHIATRIST Signed: 03/29/2024 18:20 03/29/2024 ADDENDUM STATUS: COMPLETED pt [facility] 04/01 /mercedes/ MIGUELITO GABRIEL MD STAFF PSYCHIATRIST Signed: 03/29/2024 18:21 MIGUELITO GABRIEL [place]
--- OUTSIDE RECORDS SUMMARY | 2024-11-05 09:37 | XMS_ITS ---
Author Name [place] Address [address] [place] [address] Support Name Relationship Address Phone LEIGHTON ALLEN Next of Kin [address] [address] LEIGHTON ALLEN Emergency Contact [address] [place] [address] Care Team Providers Care Prosthodontist/Owner Name Role Phone YVONNE ESTEBAN Primary Care [...] CT DEPT OF COR Aug 17, 2020 [id number] ALLEN,CAR LOS PATIENT BCBS [place] (BLUE CARD) PREFERRED PROVIDER ORGANIZAT ION (PPO) ST OF CT DEPT OF COR Aug 17, 2020 [id number] ALLEN,CAR LOS PATIENT CAREM[facility] PRESCRIPT ION [facility] Aug 17, 2020 [id number] ALLEN,CAR LOS PATIENT [facility] PRESCRIPT ION [facility] Aug 17, 2020 [id number] [phone] ALLEN,CAR LOS PATIENT Selected Encounter This section includes the information on record at [place] for the Encounter. Date/Time Encounter Type Encounter Description Reason Provider Source Jun 02, 2024 09:30 AM OFFICE O/P EST LOW 20 MIN DENTAL ICD-10-CM G47.33 Obstructive sleep apnea (adult) (pediatric) KAYCE KEYES I[facility] Encounter Template Text not used by [place] Assessments - Encounter Diagnoses This section includes the primary and secondary diagnoses documented for the Encounter. Date/Time Primary/Secondary Diagnosis Diagnosis Name Provider Source Jun 02, 2024 11:12 AM PRIMARY Obstructive sleep apnea (adult) (pediatric) KAYCE KEYES [place] [facility] Plan of Treatment: Future Appointments (+ 6 months) and Future Tests (+/- 45 days) The Plan of Treatment section includes future care activities for the patient from all [place] treatmentfacilities. This section includes future appointments and future [...] 13, 2024 10:00 AM AMBULATORY - NONE [place] [facility] [place] [facility] Jul 14, 2024 09:30 AM AMBULATORY - NONE [place] [facility] [place] [facility] Jul 27, 2024 10:30 AM AMBULATORY - NONE [place] [facility] [place] [facility] Aug 05, 2024 02:00 PM AMBULATORY - PSYCHIATRY [facility] Oct 11, 2024 09:00 AM AMBULATORY - PSYCHIATRY [facility] Oct 11, 2024 09:30 AM AMBULATORY - NONE [place] [facility] [place] [facility] Oct 27, 2024 04:00 PM AMBULATORY - NONE [place] [facility] [place] [facility] Nov 02, 2024 09:30 AM AMBULATORY - NONE [place] [facility] [place] [facility] Dec 02, 2024 09:00 AM AMBULATORY - PSYCHIATRY [facility] Active, Pending, and Scheduled Orders This section includes a listing of several types of active, pending, and scheduled orders, including clinic medications orders, diagnostic test orders, procedure orders and consult orders; where the start date of the order is 45 days before the date of the Encounter or 45 days after the date of theEncounter. The data comes from all [place] treatment facilities. Test Date/Time Test Type Test Details Facility Name Jun 25, 2024 04:24 PM Consult Order COMMUNITY CARE-DENTAL GENERAL Cons Electric Organ Checker's Choice [facility] [employer] [facility] edulioLAKESIDE WOM[facility] OKLAHOMA CITYVertical Communications [facility] Social History: Smoking Status (Most current) [...] 21, 2020 02:14 PM [place]-TOBACCO NEVER USED [facility] [employer] [facility] edulioHUDS[facility] Encounter Notes: All associated encounter notes This section contains the clinical notes associated to the Encounter. Date/Time Encounter Note(s) Provider Source Jun 02, 2024 11:06 AM DENTISTRY NOTE: LOCAL TITLE: DENTAL NOTE STANDARD TITLE: DENTISTRY NOTE DATE OF NOTE: JUN 02, 2024@11:06 ENTRY DATE: JUN 02, 2024@11:12:15 AUTHOR: EVY KEYES COSIGNER: URGENCY: STATUS: COMPLETED Patient Name: DENISSE ALLEN, : 1990, Age: 33 Visit: S: Jun 02, 2024@09:30 [facility]. Primary PCE Diagnosis: G47.33 (OBSTRUCTIVE SLEEP APNEA (ADULT) (PEDIATRIC)). Dental Category: 15-OPC, Class IV. Treatment Status: Active. Completed Care: ([id number]) OFFICE O/P EST LOW 20 MIN. DX: G47.33 Obstructive Sleep Apnea (Adult) (Pediatric) (D9995) TELEDENTISTRY SYNC REAL TIME. DX: G47.33 Obstructive Sleep Apnea (Adult) (Pediatric) - - - - - - - - - - - - - - - - - - - - - - - - - - - - - - Patient presents for follow up of CHARLES Oral Appliance no contraindications, patient consents to appointment [facility] appointment: pateint confirms able to connect, in a safe secure location. Consent*: Obtain or confirm that verbal consent for telehealth has been documented (Note: This is a one-time requirement for your service) Address: Obtain or confirm the location and address of the patient to ensure they are in a safe place and for use in case of an emergency. Phone Numbers:* Patient's current phone number - for use if disconnected. Emergency contact's phone number - for use in an emergency. Survey the environment and identify all participants Lock the virtual conference room once all participants have joined. Medication Reconciliation - no contraindications with dental Rx noted Appliance Type: ProSomnus CA [employer] Reviewed appliance use - Patient not using it nightly , reports he sometimes forgets to use it and falls alseep without it. Also reports he is having a hard time getting used to having something on his teeth at night, but still prefers this to the CPAP. Fit of appliance fit is tight, not ingeneral but feels like a few teeth, but patient could not specify which. no issues on tissue impingement or jaw pain. denies tooth pain, just feels tight. will sometimes take appliance out if he wakes in the middle of the night and has a hard time fallig back asleep as he is thinking about the appliance on his teeth. Asked patient to try consistent use of the appliance - if he can wear it succesfully throughout the night for 2 weeks and then come in I can mkae selective adjsutments to improve fit and comfort, but need him to be able to identify the specific areas. advised we did not want to make general adjustmnets that would impact the overall fit and create looseness to the appliance. pt agreed an understood reviewed below concerns, asked pt to reach out sooner than next [facility] if anything arises. recommended no advancement at this time until pt becomes comfortable with appliance. if patient experiences muscle or jaw pain or tooth pressure/sensitivity that does not resolve over 3-5 days and impacts normal daily routine, worsens over the course of the week, or otherwise impacts normal eating, patient to discontinue use of appliance and contact the clinic. Advised appliance designed to function for up to five years, we would need a new consult to re-evaluate if a new appliance is needed in the future. Questions CHARLES FU by sleep team scheduled? not yet Patient given time to have all questions answered FTF time10 minutes [facility] fu /mercedes/ ISABELLE CERON Ethanol Maintenance Mechanic, Chief Dental Service Signed: 06/02/2024 11:12 ISABELLE KEYES [facility]
--- OUTSIDE RECORDS SUMMARY | 2024-11-05 09:37 | XMS_ITS | Encounter Summary ---
Author Name [place] Organization [place] Address [address] [place] [address] Support Name Relationship Address Phone TIFFANY LEIGHTON Next of Kin [address] [place] [address] LEIGHTON ALLEN Emergency Contact [address] [place] [address] Care Team Providers Care Senior Oracle Applications Developer Name Role Phone YVONNE ESTEBAN Primary Care [...] CT DEPT OF COR Aug 17, 2020 [id number] ALLEN,CAR LOS PATIENT BCBS [place] (BLUE CARD) PREFERRED PROVIDER ORGANIZAT ION (PPO) ST OF CT DEPT OF COR Aug 17, 2020 [id number] ALLEN,CAR LOS PATIENT [facility]EM[employer] PRESCRIPT ION [facility] Aug 17, 2020 [id number] ALLEN,CAR LOS PATIENT [employer] PRESCRIPT ION [facility] Aug 17, 2020 [id number] [phone] ALLEN,CAR LOS PATIENT Selected Encounter This section includes the information on record at [place] for the Encounter. Date/Time Encounter Type Encounter Description Reason Pro vider Source Jun 01, 2024 08:35 AM Outpatient Encounter DENTAL IHE Encounter Template Text not used by [place] Plan of Treatment: Future Appointments (+ 6 months) and Future Tests (+/- 45 days) The Plan of Treatment section includes future care activities for the patient from all [place] [facility]. This section includes future appointments and future orders which are active, pending or scheduled. Future Appointments This section includes appointments that were scheduled to occur 6 months from the date of the Encounter, up to a maximum of 20 appointments. The data comes from all [facility]. Appointment Date/Time Appointment Type Appointme nt Facility Name Jun 02, 2024 09:30 AM AMBULATORY - NONE [facility] [place] [facility] Jul 13, 2024 10:00 AM AMBULATORY - NONE [facility] [place] [facility] Jul 14, 2024 09:30 AM AMBULATORY - NONE [facility] [place] [facility] Jul 27, 2024 10:30 AM AMBULATORY - NONE [facility] [place] [facility] Aug 05, 2024 02:00 PM AMBULATORY - PSYCHIATRY [facility] Oct 11, 2024 09:00 AM AMBULATORY - PSYCHIATRY [facility] Oct 11, 2024 09:30 AM AMBULATORY - NONE [facility] [place] [facility] Oct 27, 2024 04:00 PM AMBULATORY - NONE [facility] [place] [facility] Nov 02, 2024 09:30 AM AMBULATORY - NONE [facility] [place] [facility] Dec 02, 2024 09:00 AM AMBULATORY - PSYCHIATRY [facility] Active, Pending, and Scheduled Orders This section includes a listing of several types of active, pending, and scheduled orders, including clinic medications orders, diagnostic test orders, procedure orders and consult orders; where the start date of the order is 45 days before the date of the Encounter or 45 days after the date of theEncounter. The data comes from all [facility]. Test Date/Time Test Type Test Details Facility Name Jun 25, 2024 04:24 PM Consult Order COMMUNITY CARE-DENTAL GENERAL Cons Edger Operator's Choice [facility] Social History: Smoking Status (Most current) and Tobacco Use (All prior to encounter date) This section includes the most current, and the historical, smoking and tobacco- related health factors from the [place] facility where the Encounter took place. Current Smoking Status This section includes the most current smoking, or tobacco-related health factor, from the [place] facility where the Encounter took place. Date/Time Current Smoking Status Comment Facil ity Apr 21, 2020 02:14 PM [facility] [place] [facility] Encounter Notes: All associated encounter notes This section contains the clinical notes associated to the Encounter. Date/Time Encounter Note(s) Provider Source Jun 01, 2024 08:35 AM DENTISTRY TELEPHON E ENCOUNTER NOTE: LOCAL TITLE: TELEPHONE NOTE/DENTAL STANDARD TITLE: DENTISTRY TELEPHONE ENCOUNTER NOTE DATE OF NOTE: JUN 01, 2024@08:35 ENTRY DATE: JUN 01, 2024@08:35:25 AUTHOR: ALICIA LAROSE EXP COSIGNER: URGENCY: STATUS: COMPLETED Called pt and LM to confirm dental vvc appointment on 06/02/2024 at 9:30 am /mercedes/ ALICIA LAROSE ADVANCED BLOOD BANK ATTENDANT Signed: 06/01/2024 08:36 ALICIA LAROSE [place] [facility] [place] [facility]
--- OUTSIDE RECORDS SUMMARY | 2024-11-05 09:37 | XMS_ITS ---
Author Name [facility] [place] Organization [place] Address [address] [place] [address] Support Name Relationship Address Phone LEIGHTON ALLEN Next of Kin [address] [place] [address] LEIGHTON ALLEN Emergency Contact [address] [place] [address] Care Team Providers Care Automobile Technician Name Role Phone YVONNE ESTEBAN Primary [...] CT DEPT OF COR Aug 17, 2020 [id number] [id number] ALLEN,CAR LOS PATIENT BCBS [place] (BLUE CARD) PREFERRED PROVIDER ORGANIZAT ION (PPO) ST OF [facility] DEPT OF COR Aug 17, 2020 [id number] 00H [id number] ALLEN,CAR LOS PATIENT [facility]EM[facility] PRESCRIPT [facility] Aug 17, 2020 [id number] [phone] ALLEN,CAR LOS PATIENT [facility] PRESCRIPT ION [facility] Aug 17, 2020 [id number] ALLEN,CAR LOS PATIENT Selected Encounter This section includes the information on record at [place] for the Encounter. Date/Time Encounter Type Encounter Description Reason Provider Source Jul 13, 2024 10:00 AM OFFICE O/P EST LOW 20 MIN DENTAL ICD-10-CM G47.33 Obstructive sleep apnea (adult) (pediatric) KAYCE KEYES IHE Encounter Template Text not used by [place] Assessments - Encounter Diagnoses This section includes the primary and secondary diagnoses documented for the Encounter. Date/Time Primary/Secondary Diagnosis Diagnosis Name Provider Source Jul 29, 2024 10:05 AM PRIMARY Obstructive sleep apnea (adult) (pediatric) KAYCE KEYES [facility] [place] [facility] Plan of Treatment: Future Appointments (+ 6 months) and Future Tests (+/- 45 days) The Plan of Treatment section includes future care activities for the patient from all [place] [facility]. This section includes future appointments and future orders which are active, pending or scheduled. Future Appointments This section includes appointments that were scheduled to occur 6 months from the date of the Encounter, up to a maximum of 20 appointments. The data comes from all [place] treatment facilities. Appointment Date/Time Appointment Type Appointme nt Facility Name Jul 14, 2024 09:30 AM AMBULATORY - NONE [place] [facility] [place] [facility] Jul 27, 2024 10:30 AM AMBULATORY - NONE [place] [facility] [facility] Aug 05, 2024 02:00 PM AMBULATORY - PSYCHIATRY [facility] Oct 11, 2024 09:00 AM AMBULATORY - PSYCHIATRY [facility] Oct 11, 2024 09:30 AM AMBULATORY - NONE [place] [facility] [facility] Oct 27, 2024 04:00 PM AMBULATORY - NONE [place] [facility] [facility] Nov 02, 2024 09:30 AM AMBULATORY - NONE [place] [facility] [place] [facility] Dec 02, 2024 09:00 AM AMBULATORY - PSYCHIATRY [facility] Dec 30, 2024 10:30 AM AMBULATORY - NONE [place] [facility] [place] [facility] Active, Pending, and Scheduled Orders This section includes a listing of several types of active, pending, and scheduled orders, including clinic medications orders, diagnostic test orders, procedure orders and consult orders; where the start date of the order is 45 days before the date of the Encounter or 45 days after the date of theEncounter. The data comes from all [place] treatment facilities. Test Date/Time Test Type Test Details Facility Name Jun 25, 2024 04:24 PM Consult Order COMMUNITY CARE-DENTAL GENERAL Cons Demur[employer] Worker's Choice [place] [employer] [employer] [facility] Social History: Smoking Status (Most [...] Facil ity Apr 21, 2020 02:14 PM [place]-TOBACCO NEVER USED [facility] [employer] Encounter Notes: All associated encounter notes This section contains the clinical notes associated to the Encounter. Date/Time Encounter Note(s) Provider Source Jul 13, 2024 10:20 AM DENTISTRY NOTE: LOCAL TITLE: DENTAL NOTE STANDARD TITLE: DENTISTRY NOTE DATE OF NOTE: JUL 13, 2024@10:20 ENTRY DATE: JUL 13, 2024@10:24:35 AUTHOR: EVY KEYES COSIGNER: URGENCY: STATUS: COMPLETED Patient Name: DENISSE ALLEN, : 1990, Age: 33 Visit: S: Jul 13, 2024@10:00 [facility]. Primary PCE Diagnosis: G47.33 (OBSTRUCTIVE SLEEP APNEA (ADULT) (PEDIATRIC)). Dental Category: 15-OPC, Class IV. Treatment Status: Active. Completed Care: ([id number]) OFFICE O/P EST LOW 20 MIN. DX: [...] Appliance no contraindications, patient consents to appointment [facility] appointment: pateint confirms able to connect, in [...] [employer] Reviewed appliance use - using it most nights, not all Fit of appliance patient identifies pressure to 6-11 area, some nights it keeps him from sleeping, other nights he is tired and does not find it wakes him up; on the nights it is uncomfortable the patient will remove appliance. daytime pressure to maxillary front teeth resolves after an hour or so, does not linger through to lunchtime, does not create lingering tooth pain or issues, no jaw issues. recommend the patient come in for adjustment as he can localize the area, asked him to bring his whole box of appliance devices, and to try wearing appliance tonight to allow best assessment of adjustments. set a time for tomorrow for adjustments. /es/ ISABELLE CERON Net[employer] Engineer, Chief Dental Service Signed: 07/13/2024 10:24 ISABELLE KEYES [facility]
--- OUTSIDE RECORDS SUMMARY | 2024-11-05 09:37 | XMS_ITS | Encounter Summary ---
Author Name [facility] [place] Organization [place] Address [address] [place] [address] Support Name Relationship Address Phone TIFFANY LEIGHTON Next of Kin [address] [place] [address] LEIGHTON ALLEN Emergency Contact [address] [place] [address] Care Team Providers Care Dry Press Operator Helper Name Role Phone YVONNE ESTEBAN Primary Care [...] Name Patient's Relationship to Policy Gloria JULIANNA ALEJANDREBS OF CT POINT OF SERVICE [facility] DEPT OF COR Aug 17, 2020 [id number] [phone] ALLEN,CAR LOS PATIENT BCBS YOUSIF (BLUE CARD) PREFERRED PROVIDER ORGANIZAT ION (PPO) ST OF CT DEPT OF COR Aug 17, 2020 [id number] [phone] ALLEN,CAR LOS PATIENT [facility] PRESCRIPT I[facility] Aug 17, 2020 [id number] ALLEN,CAR LOS PATIENT [place] PRESCRIPT ION [facility] Aug 17, 2020 [id number] ALLEN,CAR LOS PATIENT Selected Encounter This section includes the information on record at [place] for the Encounter. Date/Time Encounter Type Encounter Description Reason Provider Source April 01, 2024 04:00 PM OFFICE O/P EST HI 40 MIN [facility] - IND ICD-10-CM F43.12 Post-traumatic stress disorder, chronic ANTHONY GABRIEL Queta Azalia Katie Encounter Template Text not used by [place] Assessments - Encounter Diagnoses This section includes the primary and secondary diagnoses documented for the Encounter. Date/Time Primary/Secondary Diagnosis Diagnosis Name Provider Source April 01, 2024 06:33 PM PRIMARY Post-traumatic stress disorder, chronic MIGUELITO GABRIEL April 01, 2024 06:33 PM SECONDARY Major depressv disorder, recurrent severe w/o psych features MIGUELITO GABRIEL Plan of Treatment: Future Appointments (+ 6 months) and Future Tests (+/- 45 days) The Plan of Treatment section includes future care activities for the patient from all [place] [facility]. This section includes future appointments and future orders which are active, pending or scheduled. Future Appointments This section includes appointments that were scheduled to occur 6 months from the date of the Encounter, up to a maximum of 20 appointments. The data comes from all [place] treatment facilities. Appointment Date/Time Appointment Type Appointme nt Facility Name Apr 26, 2024 09:30 AM [facility]ORY [facility] NONE [place] [facility] Jun 02, 2024 09:30 AM AMBULATORY - NONE [place] [facility] [place] [facility] Jul 13, 2024 10:00 AM [facility]UL[facility]ORY - NONE [place] [facility] Jul 14, 2024 09:30 AM AMBULATORY - NONE [place] [facility] [place] [facility] Jul 27, 2024 10:30 AM AMBULATORY - NONE [place] [facility] [facility] Aug 05, 2024 02:00 PM AMBULATORY - PSYCHIATRY [facility] Social History: Smoking Status (Most current) and Tobacco Use (All prior to encounter date) This section includes the most current, and the historical, smoking and tobacco- related health factors from the [place] facility where the Encounter took place. Current Smoking Status This section includes the most current smoking, or tobacco-related health factor, from the [place] facility where the Encounter took place. Date/Time Current Smoking Status Joe olivarez Nov 20, 2022 01:00 PM [place]-TOBACCO NEVER USED [place] Tobacco Use History This section includes a history of the smoking, or tobacco-related health factors, that were collected on or before the date of the Encounter. The data comes from the [place] facility where the Encounter took place. Date/Time Smoking Status/Tobacco Use Comment Megan mcconnell Nov 26, 2021 11:30 AM VA-TOBACCO NEVER USED [place] Encounter Notes: All associated encounter notes This section contains the clinical notes associated to the Encounter. Date/Time Encounter Note(s) Provider Source April 01, 2024 04:12 PM TELEHEALTH NOTE: LOCAL TITLE: [place] VIDEO CONNECT PSYCHIATRIST NOTE STANDARD TITLE: TELEHEALTH NOTE DATE OF NOTE: APRIL 01, 2024@16:12 ENTRY DATE: APRIL 01, 2024@16:12:16 AUTHOR: MIGUELITO GABRIEL EXP COSIGNER: URGENCY: STATUS: COMPLETED [place] VIDEO CONNECT PSYCHIATRIST NOTE Has ADDENDA VA Video Connect (VVC) Standard Documentation VVC Clinician Resources Only: E911 (Emergency Call Relay Center): [phone] [facility] Crisis Line - 988 then press #1. [facility] Suicide Coordinator [phone], Ext. [phone]; Back-up Ext. [phone] [place] Police, JODI, Darryl [phone] Introduction: Visit is being conducted by [place] [employer]. identified with 2 identifiers: [X] Full Name [X] Date of [ ] VA ID Card Emergency Plan: [employer] confirmed and/or provided the following information in case of emergency or technology failure. PATIENT PHONE - PHONE NUMBER [CELLULAR] - Is patient phone number correct, if not, enter below: 's phone number: DENISSE ALLEN [address] [place] [address], [phone] [employer]'s present location and address for appointment: home 's emergency contact name and phone number: chart reported that location is private and safe: Yes Informed Consent: informed of the risks and benefits of Telehealth video care. has the right to refuse video services. If refuses video visit, a laya-le-bvzr visit will be scheduled. [employer] verbalized consent for this video visit: Yes [employer] provided consent for any other persons present for visit: N/A If yes, who and relationship to patient: Secure visit: Visit was locked for security and privacy:Yes 40 min for encounter, including chart review, interview, charting chart reviewed see my 05/26/20 note for more hx Patient relatively stable, but does have several despite this, stressors. As noted last appointment, despite some ongoing symptoms, he does present with general improvement in depression, anxiety, PTSD symptoms, and he again feels the Zoloft is helping significantly even at the low-dose. He does not want trial of dose increase to further improve symptoms, because he wants to minimize medication. Affect brightens appropriately. Pt denies SI and violent ideation. Thoughts are well organized. Denies history of hallucinations. No paranoid or delusional content presented. Speech normal. Cognitive exam grossly normal. Good self-care. No slowing noted. Has interests. Future oriented. As noted previously, pt and his is main support; chief client officer in [place] system In general, patient reports decreased alcohol use , he again does not consider alcohol to be a problem. Denies street drugs Denies medication side effects. No daytime sedation. Reports compliance with Zoloft 25 mg daily. Active problems - Computerized Problem List is the source for the followin. Exposure to potentially hazardous substance 2. Sleep apnea 3. Chronic Post-Traumatic Stress Disorder ([facility] [id number]) 4. Major depressive disorder 5. Comanagement 6. Chronic back pain 7. Migraine 8. 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 prozac zoloft another depressant pt cannot recall -- was not helpful h/o low dose elavil for ARIAS thr mo IMPRESSION: DSM-5 PTSD, chronic Major depression, improved r/o alcohol use do -- pt reports very limited use PLAN: I performed careful risk assessment. See C-SSRS below. Patient also has important protective factors, his children and family. The pt is probably low risk for suicide or violence -- the patient denied suicidal and violent ideation, but the [place] Crisis Line information and number were reviewed w patient as a precaution over the phone. The patient also understands to call 911 or to go to ER in the event of an emergency. therapist in psych wellness grp -- Layne Webb, but the patient may try to change therapist to Bradley Rogers, using his own insurance. I offered him a therapist within the [place], but the patient declines at this point, he will call if he changes his mind. Patient may also consider a therapist through the [facility] center. CONTINUE ZOLOFT 25 MG DAILY for depression, PTSD, anxiety, he feels he is benefiting significantly from this dose; He does not want a higher dose of Zoloft than 25 mg daily - he wants to minimize side effects. He also philosophically is against medications longer-term. He may want to consider coming off of the Zoloft at a future appointment. Also, patient does not want a different antidepressant As noted last appointment, hydroxyzine was discontinued, patient taking amitriptyline low-dose from neuro for headaches. Reviewed the risk of drug interaction between amitriptyline and Zoloft, which is probably very low risk , given that both are low-dose. Reviewed risk of sedation with amitriptyline. Patient denies side effects Another discussion about the patient's alcohol use, I again reviewed the medical and psych problems assoc [...] with psychiatric medication. return to clinic in 1-2 mo for medication check. I encouraged the [...] /mercedes/ MIGUELITO GABRIEL MD STAFF PSYCHIATRIST Signed: 04/01/2024 18:33 Receipt Acknowledged By: 04/02/2024 07:21 /mercedes/ Makenzie Mccarthy ADVANCED INTERNET MARKETING CONSULTANT 04/02/2024 10:52 /es/ CALI GUSTAFSON ADVANCED INTERNET MARKETING CONSULTANT 04/01/2024 ADDENDUM STATUS: COMPLETED Suicide Screen: C-SSRS Screening [place]-Suicide Severity Rating Scale (C-SSRS Screener) 1. Over the past month, have you wished you were or wished you could go to sleep and not wake up? No 2. Over the past month, have you had any actual thoughts of killing yourself? No 3. Over the past month, have you been thinking about how you might do this? Response not required due to responses to other questions. 4. Over the past month, have you had these thoughts and had some intention of acting on them? Response not required due to responses to other questions. 5. Over the past month, have you started to work out or worked out the details of how to kill yourself? Response not required due to responses to other questions. 6. If yes, at any time in the past month did you intend to carry out this plan? Response not required due to responses to other questions. 7. In your lifetime, have you ever done anything, started to do anything, or prepared to do anything to end your life (for example, collected pills, obtained a gun, gave away valuables, went to the roof but didn't jump)? No 8. If YES, was this within the past 3 months? Response not required due to responses to other questions. /mercedes/ MIGUELITO GABRIEL MD STAFF PSYCHIATRIST Signed: 04/01/2024 18:40 07/27/2024 ADDENDUM STATUS: COMPLETED Note 07/27 dental note /mercedes/ MIGUELITO GABRIEL MD STAFF PSYCHIATRIST Signed: 07/27/2024 18:21 MIGUELITO GABRIEL
--- OUTSIDE RECORDS SUMMARY | 2024-11-05 09:37 | XMS_ITS | Encounter Summary ---
Author Name Department [place] Organization [place] Address [address] [place] [address] Support Name Relationship Address Phone TIFFANY LEIGHTON Next of Kin [address] [place] [address] LEIGHTON ALLEN Emergency Contact [address] [place] [address] Care Team Providers Care Boilermaker Industrial Boilers Name Role Phone YVONNE ESTEBAN Primary Care [...] CT DEPT OF COR Aug 17, 2020 [id number] 00H [id number] ALLEN,CAR LOS PATIENT BCBS [place] (BLUE CARD) PREFERRED PROVIDER ORGANIZAT ION (PPO) ST OF [facility] DEPT OF COR Aug 17, 2020 [id number] 00H [id number] ALLEN,CAR LOS PATIENT [facility] PRESCRIPT [facility] Aug 17, 2020 [id number] ALLEN,CAR LOS PATIENT [place] PRESCRIPT ION [facility] Aug 17, 2020 [id number] ALLEN,CAR LOS PATIENT Selected Encounter This section includes the information on record at [place] for the Encounter. Date/Time Encounter Type Encounter Description Reason Pro vider Source March 26, 2024 08:22 AM Outpatient Encounter DENTAL IHE Encounter Template Text not used by [place] Plan of Treatment: Future Appointments (+ 6 months) and Future Tests (+/- 45 days) The Plan of Treatment section includes future care activities for the patient from all [place] [facility]. This section includes future appointments and future orders which are active, pending or scheduled. Future Appointments This section includes appointments that were scheduled to occur 6 months from the date of the Encounter, up to a maximum of 20 appointments. The data comes from all [place] treatment facilities. Appointment Date/Time Appointment Type Appointme nt Facility Name March 29, 2024 03:00 PM AMBULATORY - PSYCHIATRY [facility] April 01, 2024 04:00 PM AMBULATORY - PSYCHIATRY [facility] Apr 26, 2024 09:30 AM AMBULATORY - NONE [place] [facility] [place] [facility] Jun 02, 2024 09:30 AM AMBULATORY - NONE [place] [facility] [place] [facility] Jul 13, 2024 10:00 AM AMBULATORY - NONE [place] [facility] [facility] Jul 14, 2024 09:30 AM AMBULATORY - NONE [place] [facility] [place] [facility] Jul 27, 2024 10:30 AM AMBULATORY - NONE [place] [facility] [facility] Aug 05, 2024 02:00 PM AMBULATORY - PSYCHIATRY [facility] Social History: Smoking Status (Most current) and Tobacco Use (All prior to encounter date) This section includes the most current, and the historical, smoking and tobacco- related health factors from the [place] facility where the Encounter took place. Current Smoking Status This section includes the most current smoking, or tobacco-related health factor, from the [place] facility where the Encounter took place. Date/Time Current Smoking Status Comment Facil juanis Apr 21, 2020 02:14 PM VA-TOBACCO NEVER USED [place] [facility] [place] [facility] Encounter Notes: All associated encounter notes This section contains the clinical notes associated to the Encounter. Date/Time Encounter Note(s) Provider Source March 26, 2024 08:22 AM DENTISTRY TELEPHON E ENCOUNTER NOTE: LOCAL TITLE: TELEPHONE NOTE/DENTAL STANDARD TITLE: DENTISTRY TELEPHONE ENCOUNTER NOTE DATE OF NOTE: MARCH 26, 2024@08:22 ENTRY DATE: MARCH 26, 2024@08:22:19 AUTHOR: ALICIA LAROSE EXP COSIGNER: URGENCY: STATUS: COMPLETED Spoke with pt to confirm dental appointment on 03/29/2024 at 1:00 pm. pt cancelled and rescheduled to 04/26/2024. /mercedes/ ALICIA LAROSE ADVANCED RN ADVANCED Signed: 03/26/2024 08:26 ALICIA LAROSE [place] [facility]
--- OUTSIDE RECORDS SUMMARY | 2024-11-05 09:37 | XMS_ITS | Encounter Summary ---
Author Name Department [place] Organization [place] Address [address] [place] [address] Support Name Relationship Address Phone TIFFANY LEIGHTON Next of Kin [address] [place] [address] LEIGHTON ALLEN Emergency Contact [address] [place] [address] Care Team Providers Care Automation Test Developer Name Role Phone YVONNE ESTEBAN Primary [...] CT DEPT OF COR Aug 17, 2020 [id number] ALLEN,CAR LOS PATIENT BCBS [place] (BLUE CARD) PREFERRED PROVIDER ORGANIZAT ION (PPO) ST OF [facility] DEPT OF COR Aug 17, 2020 [id number] [phone] ALLEN,CAR LOS PATIENT [facility] PRESCRIPT I[facility] Aug 17, 2020 [id number] ALLEN,CAR LOS PATIENT [facility] PRESCRIPT ION [facility] Aug 17, 2020 [id number] ALLEN,CAR LOS PATIENT Selected Encounter This section includes the information on record at [place] for the Encounter. Date/Time Encounter Type Encounter Description Reason Pro vider Source Apr 23, 2024 08:41 AM Outpatient Encounter DENTAL IHE Encounter Template Text not used by [place] Plan of Treatment: Future Appointments (+ 6 months) and Future Tests (+/- 45 days) The Plan of Treatment section includes future care activities for the patient from all [place] [facility]. This section includes future appointments and future orders which are active, pending or scheduled. Future Appointments This section includes appointments that were scheduled to occur 6 months from the date of the Encounter, up to a maximum of 20 appointments. The data comes from all [place] treatment facilities. Appointment Date/Time Appointment Type Appointme nt Facility Name Apr 26, 2024 09:30 AM AMBULATORY - NONE [place] [facility] [place] [facility] Jun 02, 2024 09:30 AM AMBULATORY - NONE [place] [facility] [place] [facility] Jul 13, 2024 10:00 AM AMBULATORY - NONE [place] [facility] [place] [facility] Jul 14, 2024 09:30 AM AMBULATORY - NONE [place] [facility] [place] [facility] Jul 27, 2024 10:30 AM AMBULATORY - NONE [place] [facility] [place] [facility] Aug 05, 2024 02:00 PM AMBULATORY - PSYCHIATRY [facility] Oct 11, 2024 09:00 AM AMBULATORY - PSYCHIATRY [facility] Oct 11, 2024 09:30 AM AMBULATORY - NONE [place] [facility] [place] [facility] Social History: Smoking Status (Most current) and Tobacco Use (All prior to encounter date) This section includes the most current, and the historical, smoking and tobacco- related health factors from the [place] facility where the Encounter took place. Current Smoking Status This section includes the most current smoking, or tobacco-related health factor, from the [place] facility where the Encounter took place. Date/Time Current Smoking Status Comment Mayra olivarez Apr 21, 2020 02:14 PM VA-TOBACCO NEVER USED [place] [facility] [place] [facility] Encounter Notes: All associated encounter notes This section contains the clinical notes associated to the Encounter. Date/Time Encounter Note(s) Provider Source Apr 23, 2024 08:41 AM DENTISTRY TELEPHON E ENCOUNTER NOTE: LOCAL TITLE: TELEPHONE NOTE/DENTAL STANDARD TITLE: DENTISTRY TELEPHONE ENCOUNTER NOTE DATE OF NOTE: APR 23, 2024@08:41 ENTRY DATE: APR 23, 2024@08:41:46 AUTHOR: ALICIA LAROSE EXP COSIGNER: URGENCY: STATUS: COMPLETED Spoke with pt to confirm dental appointment on 04/26/2024 at 9:30 am /mercedes/ ALICIA LAROSE ADVANCED WICK AND BASE ASSEMBLER Signed: 04/23/2024 08:45 ALICIA LAROSE [facility]
--- OUTSIDE RECORDS SUMMARY | 2024-11-05 09:37 | XMS_ITS | Encounter Summary ---
Author Name [facility] [facility] [place] Organization [facility] [place] Address [address] [place] [address] Support Name Relationship Address Phone ALLENLEIGHTON ALCARAZ Next of Kin [address] [address] LEIGHTON ALLEN Emergency Contact [address] [place] [address] Care Team Providers Care Associate Property Manager Name Role Phone YVONNE ESTEBAN Primary [...] [facility] DEPT OF COR Aug 17, 2020 [id number] ALLEN,CAR LOS PATIENT BCBS [place] (BLUE CARD) PREFERRED PROVIDER ORGANIZAT ION (PPO) [facility] OF [facility] DEPT OF COR Aug 17, 2020 [id number] [id number] ALLEN,CAR LOS PATIENT CAREMARK PRESCRIPT ION [facility] Aug 17, 2020 [id number] ALLEN,CAR LOS PATIENT [facility] PRESCRIPT ION [facility] Aug 17, 2020 [id number] [phone] ALLEN,CAR LOS PATIENT Selected Encounter This section includes the information on record at [place] for the Encounter. Date/Time Encounter Type Encounter Description Reason Provider Source Feb 23, 2024 01:00 PM OFFICE O/P NEW LOW 30 MIN DENTAL ICD-10-CM G47.33 Obstructive sleep apnea (adult) (pediatric) KAYCE KEYES IHE Encounter Template Text not used by [place] Assessments - Encounter Diagnoses This section includes the primary and secondary diagnoses documented for the Encounter. Date/Time Primary/Secondary Diagnosis Diagnosis Name Provider Source Feb 23, 2024 04:20 PM PRIMARY Obstructive sleep apnea (adult) (pediatric) KAYCE KEYES [facility] Plan of Treatment: Future Appointments (+ 6 months) and Future Tests (+/- 45 days) The Plan of Treatment section includes future care activities for the patient from all [place] [facility] This section includes future appointments and future orders which are active, pending or scheduled. Future Appointments This section includes appointments that were scheduled to occur 6 months from the date of the Encounter, up to a maximum of 20 appointments. The data comes from all [place] treatment facilities. Appointment Date/Time Appointment Type Appointme nt Facility Name March 29, 2024 03:00 PM AMBULATORY - PSYCHIATRY [facility] April 01, 2024 04:00 PM AMBULATORY - PSYCHIATRY [facility] Apr 26, 2024 09:30 AM AMBULATORY - NONE [facility] [place] [facility] Jun 02, 2024 09:30 AM AMBULATORY - NONE [facility] [place] [facility] Jul 13, 2024 10:00 AM AMBULATORY - NONE [facility] [place] [facility] Jul 14, 2024 09:30 AM AMBULATORY - NONE [facility] [place] [facility] Jul 27, 2024 10:30 AM AMBULATORY - NONE [facility] [place] [facility] Aug 05, 2024 02:00 PM AMBULATORY - PSYCHIATRY [facility] Social History: Smoking Status (Most current) and Tobacco Use (All prior to encounter date) This section includes the most current, and the historical, smoking and tobacco- related health factors from the [place] facility where the Encounter took place. Current Smoking Status This section includes the most current smoking, or tobacco-related health factor, from the [place] facility where the Encounter took place. Date/Time Current Smoking Status Comment Facil juanis Apr 21, 2020 02:14 PM VA-TOBACCO NEVER USED [facility] [place] [facility] Encounter Notes: All associated encounter notes This section contains the clinical notes associated to the Encounter. Date/Time Encounter Note(s) Provider Source Feb 23, 2024 04:16 PM DENTISTRY CONSULT: LOCAL TITLE: CONSULT REPORT/DENTAL STANDARD TITLE: DENTISTRY CONSULT DATE OF NOTE: FEB 23, 2024@16:16 ENTRY DATE: FEB 23, 2024@16:20:59 AUTHOR: EVY KEYES EXP COSIGNER: URGENCY: STATUS: COMPLETED Patient Name: DENISSE ALLEN, : 1990, Age: 33 Visit: S: Feb 23, 2024@13:00 CWM/NO/DENTAL/DMD4. Primary PCE Diagnosis: G47.33 (OBSTRUCTIVE SLEEP APNEA (ADULT) (PEDIATRIC)). Dental Category: 15-OPC, Class IV. Treatment Status: Active. Dental Examination: Missing Teeth: 1, 16, 19, 30. Existing Dental Restorations: Restored: 3(O) Resin, 4(DO) Resin, 8(F) Resin, 9(IF) Resin, 8(I) Resin, 12(DO) Resin, 13(DO) Resin, 14(MO) Resin, 29(DO) Resin, 31(MO) Resin. Completed Care: ([id number]) OFFICE O/P NEW LOW 30 MIN. DX: G47.33 Obstructive Sleep Apnea (Adult) (Pediatric) - - - - - - - - - - - - - - - - - - - - - - - - - - - - - - Patient seen for consultation referred by Primary Care/Pulmonary current diagnosis: sleep apnea patient tried CPAP: yes on file letter of medical necessity/referral: yes patient exam dental/skeletal classification: class I vertical overlap:1mm horizontal overlap:1mm missing teeth:as charted dental condition:adult intact dentition seeing AV Man with community care, maintenance care; pano was imported from medical records done 09/2023 radiograhic findings:WNL - sinus cloudy on Rt side apical to #3 consistent with mucous retention mobility:none tongue position:normal MIP-Protrusive range: approx 7mm not more Mallampati Score:3 Sampsoon-Young Score:4 adenoids and tonsils present Discussed findings with patient and reviewed treatment options Patient concerns: Patient appears to be a good candidate for oral appliance therapy for obstructive sleep apnea. iMED Consent reviewd for oral appliance. Stressed need for patient to contact us if sensations of tooth pressure or sensitivity develop that linger through lucnhtime for 3+ days, warned to discontinue appliance use and contact our clinic. Stressed that if patient experiences muscle or jaw pain that does not resolve over 3-5 days and impacts normal daily routine, worsens over the course of the week, or otherwise impacts normal eating, patient to discuntinue use of appliance and contact the clinic. CERE with a protrusive record at 60% of maximum made computer lost file, had to redo - patient was very cooperative about the technical issues Case will be sent for fabrication of an oral appliance Patient will be reappointed for a return appointment for fitting, calibrating the appliance and home use intructions. All patient questions were answered FTF time with patient 45 minutes /es/ ISABELLE CERON Welder Fabricator, Chief Dental Service Signed: 02/23/2024 16:20 ISABELLE KEYES [facility]
--- OUTSIDE RECORDS SUMMARY | 2024-11-05 09:37 | XMS_ITS | Encounter Summary ---
Author Name [facility] [place] [facility] [place] Organization [place] Address [address] [place] [address] Support Name Relationship Address Phone LEIGHTON ALLEN Next of Kin [address] [address] LEIGHTON ALLEN Emergency Contact [address] [address] Care Team Providers Care 911 Telecommunicator Name Role Phone YVONNE ESTEBAN Primary Care [...] CT DEPT OF COR Aug 17, 2020 [id number] ALLEN,CAR LOS PATIENT BCBS [place] (BL[place] CARD) PREFERRED PROVIDER ORGANIZAT ION (PPO) ST OF [facility] DEPT OF COR Aug 17, 2020 [id number] ALLEN,CAR LOS PATIENT CAREMARK PRESCRIPT I[facility] Aug 17, 2020 [id number] ALLEN,CAR LOS PATIENT [facility] PRESCRIPT ION [facility] Aug 17, 2020 [id number] ALLEN,CAR LOS PATIENT Selected Encounter This section includes the information on record at [place] for the Encounter. Date/Time Encounter Type Encounter Description Reason Pro vider Source Feb 23, 2024 01:21 PM Outpatient Encounter EVENT (HISTORICAL) IHE Encounter Template Text not used by [place] Plan of Treatment: Future Appointments (+ 6 months) and Future Tests (+/- 45 days) The Plan of Treatment section includes future care activities for the patient from all [place] [facility]. This section includes future appointments and future orders which are active, pending or scheduled. Future Appointments This section includes appointments that were scheduled to occur 6 months from the date of the Encounter, up to a maximum of 20 appointments. The data comes from all [place] treatment facilities. Appointment Date/Time Appointment Type Appointme nt Facility Name March 29, 2024 03:00 PM AMBULATORY - PSYCHIATRY [facility] April 01, 2024 04:00 PM AMBULATORY - PSYCHIATRY [facility] Apr 26, 2024 09:30 AM AMBULATORY - NONE [facility] [place] [facility] Jun 02, 2024 09:30 AM AMBULATORY - NONE [facility] [place] [facility] Jul 13, 2024 10:00 AM AMBULATORY - NONE [facility] [place] [facility] Jul 14, 2024 09:30 AM AMBULATORY - NONE [place] [facility] [place] [facility] Jul 27, 2024 10:30 AM AMBULATORY - NONE [facility] [place] [facility] Aug 05, 2024 02:00 PM AMBULATORY - PSYCHIATRY [facility] Social History: Smoking Status (Most current) and Tobacco Use (All prior to encounter date) This section includes the most current, and the historical, smoking and tobacco- related health factors from the [place] facility where the Encounter took place. Current Smoking Status This section includes the most current smoking, or tobacco-related health factor, from the [place] facility where the Encounter took place. Date/Time Current Smoking Status Comment Mayra olivarez Apr 21, 2020 02:14 PM VA-TOBACCO NEVER USED [place] [facility] [place] [facility]
--- OUTSIDE RECORDS SUMMARY | 2024-11-05 09:38 | XMS_ITS | Encounter Summary ---
Author Name [facility] [place] Organization [facility] [place] Address [address] [place] [address] Support Name Relationship Address Phone TIFFANY LEIGHTON Next of Kin [address] [place] [address] LEIGHTON ALLEN Emergency Contact [address] [place] [address] Care Team Providers Care Drywall Hanger Name Role Phone YVONNE ESTEBAN Primary Care [...] CT DEPT OF COR Aug 17, 2020 [id number] [phone] ALLEN,CAR LOS PATIENT BCBS [employer] (BLUE CARD) PREFERRED PROVIDER ORGANIZAT ION (PPO) ST OF [facility] DEPT OF COR Aug 17, 2020 [id number] ALLEN,CAR LOS PATIENT CAREMARK PRESCRIPT ION [facility] Aug 17, 2020 [id number] ALLEN,CAR LOS PATIENT CAREMARK PRESCRIPT ION [facility] Aug 17, 2020 [id number] [phone] ALLEN,CAR LOS PATIENT Selected Encounter This section includes the information on record at [place] for the Encounter. Date/Time Encounter Type Encounter Description Reason Provider Source Aug 05, 2024 02:00 PM OFFICE O/P EST MOD 30 MIN MENTAL [facility] CLINIC - IND ICD-10-CM F43.12 Post-traumatic stress disorder, chronic ANTHONY GABRIEL Katie Encounter Template Text not used by [place] Assessments - Encounter Diagnoses This section includes the primary and secondary diagnoses documented for the Encounter. Date/Time Primary/Secondary Diagnosis Diagnosis Name Provider Source Aug 05, 2024 07:10 PM PRIMARY Post-traumatic stress disorder, chronic MIGUELITO GABRIEL [facility] Plan of Treatment: Future Appointments (+ 6 months) and Future Tests (+/- 45 days) The Plan of Treatment section includes future care activities for the patient from all [place] [facility]. This section includes future appointments and future orders which are active, pending or scheduled. Future Appointments This section includes appointments that were scheduled to occur 6 months from the date of the Encounter, up to a maximum of 20 appointments. The data comes from all [facility]. Appointment Date/Time Appointment Type Appointme nt Facility Name Oct 11, 2024 09:00 AM AMBULATORY - PSYCHIATRY [facility] Oct 11, 2024 09:30 AM [facility] Oct 27, 2024 04:00 PM [facility] Nov 02, 2024 09:30 AM [facility] - N[facility] Dec 02, 2024 09:00 AM AMBULATORY - PSYCHIATRY [facility] Dec 30, 2024 10:30 AM AMBULATORY - NONE [facility] Active, Pending, and Scheduled Orders This section includes a listing of several types of active, pending, and scheduled orders, including clinic medications orders, diagnostic test orders, procedure orders and consult orders; where the start date of the order is 45 days before the date of the Encounter or 45 days after the date of theEncounter. The data comes from all [facility]. Test Date/Time Test Type Test Details Facility Name Jun 25, 2024 04:24 PM Consult Order [facility]ITY [facility]-DENTAL GENERAL Cons Repeat Chief's Choice [facility] Social History: Smoking Status (Most current) [...] Mayra olivarez Nov 20, 2022 01:00 PM VA-TOBACCO NEVER USED [facility] Tobacco Use History This section includes a history of the smoking, or tobacco-related health factors, that were collected on or before the date of the Encounter. The data comes from the [place] facility where the Encounter took place. Date/Time Smoking Status/Tobacco Use Comment F acreji Nov 26, 2021 11:30 AM VA-TOBACCO NEVER USED [facility] Encounter Notes: All associated encounter notes This section contains the clinical notes associated to the Encounter. Date/Time Encounter Note(s) Provider Source Aug 05, 2024 02:04 PM TELEHEALTH NOTE: LOCAL TITLE: NE VIDEO CONNECT PSYCHIATRIST NOTE STANDARD TITLE: TELEHEALTH NOTE DATE OF NOTE: AUG 05, 2024@14:04 ENTRY DATE: AUG 05, 2024@14:04:13 AUTHOR: MIGUELITO GABRIEL COSIGNER: URGENCY: STATUS: COMPLETED [facility] Video Connect (VVC) Standard Documentation VVC Clinician Resources Only: E911 (Emergency Call Relay Center): [phone] National Veterans Crisis Line - 988 then press #1. [facility] Suicide Coordinator [phone], Ext. [phone]; Back-up Ext. [phone] [place] PoliceJODI Darryl [phone] Introduction: Visit is being conducted by [place] [employer]. Huson identified with 2 identifiers: [X] Full Name [X] Date of [ ] [place] ID Card Emergency Plan: Huson confirmed and/or provided the following information in case of emergency or technology failure. PATIENT PHONE - PHONE NUMBER [CELLULAR] - Is patient phone number correct, if not, enter below: Huson's phone number: DENISSE BALLOS [address] [address], [phone] Huson's present location and address for appointment: home Huson's emergency contact name and phone number: chart Huson reported that location is private and safe: Yes Informed Consent: informed of the risks and benefits of Telehealth video care. Huson has the right to refuse video services. If refuses video visit, a tnen-rj-bdgu visit will be scheduled. verbalized consent for this video visit: Yes provided consent for any other persons present for visit: N/A If yes, who and relationship to patient: Secure visit: Visit was locked for security and privacy:Yes 30 min for encounter, including chart review, interview, charting chart reviewed see my 05/26/20 note for more hx Patient relatively stable, with similar presentation to last appointment. Ongoing stressors. At as noted last appointment, despite some ongoing symptoms, he does present with general improvement in depression, anxiety, PTSD symptoms, and he again feels the Zoloft is helping at least partially even at the low-dose. Despite my encouragement to increase the dose to further improve symptoms, the patient is firmly against increasing the dose of Zoloft (which is low) because in general he wants to minimize medication. Affect brightens appropriately. Pt denies SI and violent ideation. Thoughts are well organized. Denies history of hallucinations. No paranoid or delusional content presented. Speech normal. Cognitive exam grossly normal. Good self-care. No slowing noted. Has interests. Future oriented. 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 Chronic Post-Traumatic Stress Disorder ([facility] [id number]) 4. Major depressive disorder 5. Comanagement 6. Chronic back pain 7. Migraine 8. 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 prozac zoloft another depressant pt cannot recall -- was not helpful h/o low dose elavil for ARIAS thr [facility] IMPRESSION: DSM-5 PTSD, chronic -- 70 % sc Major depression, improved r/o alcohol use do -- pt reports very limited use PLAN: I performed careful risk assessment. See C-SSRS 04/01 - same today. Patient also has important protective factors, his children and family. The pt is probably low risk for suicide or violence -- the patient denied suicidal and violent ideation, but the [employer] Crisis Line information and number were reviewed w patient as a precaution over the phone. The patient also understands to call 911 or to go to ER in the event of an emergency. therapy -- no longer seeing Layne Webb, and pt reports can't see Bradley Rogers. Pt reports he is seeing therapist -- Ariane for couples therapy - pt feels this helps, he does not want indiv therapist at this time. I offered him a therapist within the [facility], but the patient declines at this point, he will call if he changes his mind. Patient may also consider a therapist through [facility]. CONTINUE ZOLOFT 25 MG DAILY for depression, PTSD, anxiety, he feels he is benefiting significantly from this dose; I again encouraged him to increase the dose to improve symptom management. But he does not want a higher dose of Zoloft than 25 mg daily - he wants to minimize side effects (he denies side effects at this dose). He also philosophically is against medications longer-term. He may want to consider coming off of the Zoloft at a future appointment. Also, patient does not want a different antidepressant with a different side effect profile As noted last appointment, hydroxyzine was discontinued, patient taking amitriptyline low-dose 10-20 mg qhs from neuro for headaches. Reviewed the risk of drug interaction between amitriptyline (for migraine prophylax) and Zoloft, which is probably very low risk , given that both are low-dose. Reviewed risk of sedation with amitriptyline. Patient denies side effects consider melatonin for insomnia, but patient finds amitriptyline helpful for sleep Another discussion about the patient's alcohol use, I again reviewed the medical and psych problems assoc w alcohol use (reports significantly decreased use)-- and the pt does not think he has alcohol [...] if has side effects with psychiatric medication. sleep apnea -- pt using dental device return to clinic in 1-2 mo for medication check. I encouraged the patient to call or to come to open access sooner if needed by calling. Medication Reconciliation: Outpatient: Has the patient been taking medications as documented in the EMLR? YES: The patient has been taking medications as documented in the EMLR. Essential Medication List for Review used to complete this medication reconciliation. INCLUDED IN THIS LIST: Alphabetical list of active outpatient prescriptions dispensed from this [facility] (local) and dispensed from another [place] or DoD facility (remote) as well as inpatient orders (local, pending and active), local clinic medications, locally documented non-VA medications, and local prescriptions that have or been discontinued in the past 90 days. - All changes in medications, including all non-VA/Herbal/OTC medications were entered into CPRS. - If there were any medications the patient should no longer take, they were discontinued. - The patient/caregiver was instructed to update this list, discard old lists, and take this list to the next appointment, whether with a VA or non-VA provider. /mercedes/ MIGUELITO GABRIEL MD STAFF PSYCHIATRIST Signed: 08/05/2024 19:10 Receipt Acknowledged By: 08/06/2024 07:54 /mercedes/ Makenzie Mccarthy ADVANCED HYDRAULIC DESIGN ENGINEER 08/06/2024 08:52 /mercedes/ CALI GUSTAFSON ADVANCED HYDRAULIC DESIGN ENGINEER MIGUELITO GABRIELFIELD
--- OUTSIDE RECORDS SUMMARY | 2024-11-05 09:38 | XMS_ITS | Encounter Summary ---
Author Name [facility] [place] Address [address] [place] [address] Support Name Relationship Address Phone TIFFANY LEIGHTON Next of [place] [address] [place] [address] LEIGHTON ALLEN Emergency Contact [address] [place] [address] Care Team Providers Care Telephonic Nurse Case Manager Name Role Phone YVONNE ESTEBAN Primary [...] CT DEPT OF COR Aug 17, 2020 [id number] 00H [id number] [phone] ALLEN,CAR LOS PATIENT BCBS [place] (BLUE CARD) PREFERRED PROVIDER ORGANIZAT ION (PPO) ST OF [facility] DEPT OF COR Aug 17, 2020 [id number] 00H [id number] ALLEN,CAR LOS PATIENT [facility] PRES[facility] Aug 17, 2020 [id number] [phone] ALLEN,CAR LOS PATIENT [facility] PRESCRIPT ION [facility] Aug 17, 2020 [id number] [phone] ALLEN,CAR LOS PATIENT Selected Encounter This section includes the information on record at [place] for the Encounter. Date/Time Encounter Type Encounter Description Reason Pro vider Source Oct 26, 2024 08:35 AM Outpatient Encounter DENTAL IHE Encounter Template Text not used by [place] Plan of Treatment: Future Appointments (+ 6 months) and Future Tests (+/- 45 days) The Plan of Treatment section includes future care activities for the patient from all [place] [facility]. This section includes future appointments and future orders which are active, pending or scheduled. Future Appointments This section includes appointments that were scheduled to occur 6 months from the date of the Encounter, up to a maximum of 20 appointments. The data comes from all [place] treatment facilities. Appointment Date/Time Appointment Type Appointme nt Facility Name Oct 27, 2024 04:00 PM AMBULATORY - NONE [place] [facility] [place] [facility] Nov 02, 2024 09:30 AM AMBULATORY - NONE [place] [facility] [place] [facility] Dec 02, 2024 09:00 AM AMBULATORY - PSYCHIATRY [facility] Dec 30, 2024 10:30 AM AMBULATORY - NONE [place] [facility] [facility] April 12, 2025 09:30 AM AMBULATORY - MEDICINE [place] [facility] [place] [facility] Apr 26, 2025 03:00 PM AMBULATORY - NONE [place] [facility] [place] [facility] Active, Pending, and Scheduled Orders This section includes a listing of several types of active, pending, and scheduled orders, including clinic medications orders, diagnostic test orders, procedure orders and consult orders; where the start date of the order is 45 days before the date of the Encounter or 45 days after the date of theEncounter. The data comes from all [place] treatment facilities. Test Date/Time Test Type Test Details Facility Name Nov 02, 2024 02:06 PM Consult Order COMMUNITY CARE-DENTAL SPECIALTY Cons Human Resources Associate's Choice [place] [facility] [place] [facility] Nov 02, 2024 05:07 PM Consult Order HOME SLEEP STUDY NOX/SPOPC OUTPT Cons Human Resources Associate's Choice [facility] Social History: Smoking Status (Most current) and Tobacco Use (All prior to encounter date) This section includes the most current, and the historical, smoking and tobacco- related health factors from the [place] facility where the Encounter took place. Current Smoking Status This section includes the most current smoking, or tobacco-related health factor, from the [place] facility where the Encounter took place. Date/Time Current Smoking Status Comment Facil ity Apr 21, 2020 02:14 PM VA-TOBACCO NEVER USED [place] [facility] [place] [facility] Encounter Notes: All associated encounter notes This section contains the clinical notes associated to the Encounter. Date/Time Encounter Note(s) Provider Source Oct 26, 2024 08:35 AM TELEPHONE ENCOUNTE R NOTE: LOCAL TITLE: TELEPHONE NOTE/SPECIALTY CLINIC STANDARD TITLE: TELEPHONE ENCOUNTER NOTE DATE OF NOTE: OCT 26, 2024@08:35 ENTRY DATE: OCT 26, 2024@08:35:48 AUTHOR: ROJAS FATIMA EXP COSIGNER: URGENCY: STATUS: COMPLETED Called and confirmed his appt for tomorrow 10/27/2024 at 4pm /mercedes/ ROJAS FATIMA VISUAL EDUCATOR Signed: 10/26/2024 08:36 ROJAS FATIMA [facility]
--- OUTSIDE RECORDS SUMMARY | 2024-11-05 09:38 | XMS_ITS | Encounter Summary ---
Author Name [place] Address [address] [place] [address] Support Name Relationship Address Phone LEIGHTON ALLEN Next of Kin [address] [place] [address] LEIHGTON ALLEN Emergency Contact [address] [place] [address] Care Team Providers Care Beaming Inspector Name Role Phone YVONNE ESTEBAN Primary Care [...] CT DEPT OF COR Aug 17, 2020 [id number] 00H [id number] ALLEN,CAR LOS PATIENT BCBS [place] (BLUE CARD) PREFERRED PROVIDER ORGANIZAT ION (PPO) ST OF [facility] DEPT OF COR Aug 17, 2020 [id number] 00H [id number] [phone] ALLEN,CAR LOS PATIENT [facility] Aug 17, 2020 [id number] [phone] ALLEN,CAR LOS PATIENT [facility] PRESCRIPT ION [facility] Aug 17, 2020 [id number] [phone] ALLEN,CAR LOS PATIENT Selected Encounter This section includes the information on record at [place] for the Encounter. Date/Time Encounter Type Encounter Description Reason Pro vider Source Oct 06, 2024 03:30 PM Outpatient Encounter COMMUNITY CARE CONSULT IHE Encounter Template Text not used by [place] Plan of Treatment: Future Appointments (+ 6 months) and Future Tests (+/- 45 days) The Plan of Treatment section includes future care activities for the patient from all [place] treatmentfacilities. This section includes future appointments and future orders which are active, pending or scheduled. Future Appointments This section includes appointments that were scheduled to occur 6 months from the date of the Encounter, up to a maximum of 20 appointments. The data comes from all [facility]. Appointment Date/Time Appointment Type Appointme nt Facility Name Oct 11, 2024 09:00 AM AMBULATORY - PSYCHIATRY [facility] Oct 11, 2024 09:30 AM AMBULATORY - NONE [place] [facility] [place] [facility] Oct 27, 2024 04:00 PM AMBULATORY - NONE [place] [facility] [facility] Nov 02, 2024 09:30 AM AMBULATORY - NONE [place] [facility] [facility] Dec 02, 2024 09:00 AM AMBULATORY - PSYCHIATRY [facility] Dec 30, 2024 10:30 AM [facility] [place] [facility] Active, Pending, and Scheduled Orders This section includes a listing of several types of active, pending, and scheduled orders, including clinic medications orders, diagnostic test orders, procedure orders and consult orders; where the start date of the order is 45 days before the date of the Encounter or 45 days after the date of theEncounter. The data comes from all [facility]. Test Date/Time Test Type Test Details Facility Name Nov 02, 2024 02:06 PM Consult Order COMMUNITY CARE-DENTAL SPECIALTY Cons Facility Sales And Admin's Choice [place] [facility] [place] [facility] Nov 02, 2024 05:07 PM Consult Order HOME SLEEP STUDY NOX/SPOPC OUTPT Cons Facility Sales And Admin's Choice [place] Social History: Smoking Status (Most current) and Tobacco Use (All prior to encounter date) This section includes the most current, and the historical, smoking and tobacco- related health factors from the [place] facility where the Encounter took place. Current Smoking Status This section includes the most current smoking, or tobacco-related health factor, from the [place] facility where the Encounter took place. Date/Time Current Smoking Status Comment Facil ity Apr 21, 2020 02:14 PM VA-TOBACCO NEVER USED [place] [facility] [place] [facility]
--- OUTSIDE RECORDS SUMMARY | 2024-11-05 09:38 | XMS_ITS ---
Author Name Department [place] Organization [place] Address [address] [place] [address] Support Name Relationship Address Phone LEIGHTON ALLEN Next of Kin [address] [place] [address] LEIGHTON ALLEN Emergency Contact [address] [place] [address] Care Team Providers Care Client Service Executive Name Role Phone YVONNE ESTEBAN Primary Care [...] CT DEPT OF COR Aug 17, 2020 [id number] 00H [id number] ALLEN,CAR LOS PATIENT BCBS [place] (BLUE CARD) PREFERRED PROVIDER ORGANIZAT ION (PPO) ST OF [facility] DEPT OF COR Aug 17, 2020 [id number] [id number] [phone] ALLEN,CAR LOS PATIENT [facility] PRES[facility] Aug 17, 2020 [id number] [phone] ALLEN,CAR LOS PATIENT [facility] PRESCRIPT ION [facility] Aug 17, 2020 [id number] [phone] LALEN,CAR LOS PATIENT Selected Encounter This section includes the information on record at [place] for the Encounter. Date/Time Encounter Type Encounter Description Reason Provider Source Jul 27, 2024 10:30 AM OFFICE O/P EST LOW 20 MIN DENTAL ICD-10-CM G47.33 Obstructive sleep apnea (adult) (pediatric) KAYCE KEYES IHE Encounter Template Text not used by [place] Assessments - Encounter Diagnoses This section includes the primary and secondary diagnoses documented for the Encounter. Date/Time Primary/Secondary Diagnosis Diagnosis Name Provider Source Jul 27, 2024 11:05 AM PRIMARY Obstructive sleep apnea (adult) (pediatric) KAYCE KEYES [facility] Plan of Treatment: Future Appointments (+ 6 months) and Future Tests (+/- 45 days) The Plan of Treatment section includes future care activities for the patient from all [place] [facility]. This section includes future appointments and future orders which are active, pending or scheduled. Future Appointments This section includes appointments that were scheduled to occur 6 months from the date of the Encounter, up to a maximum of 20 appointments. The [facility] comes from all [facility] Appointment Date/Time Appointment Type Appointme nt Facility Name Aug 05, 2024 02:00 PM AMBULATORY - PSYCHIATRY [facility] Oct 11, 2024 09:00 AM AMBULATORY PSYCHIATRY [facility] Oct 11, 2024 09:30 AM AMBULATORY - NONE [facility] Oct 27, 2024 04:00 PM [facility] Nov 02, 2024 09:30 AM [facility] Dec 02, 2024 09:00 AM AMBULATORY - PSYCHIATRY [facility] Dec 30, 2024 10:30 AM AMBULATORY - NONE [facility] Active, Pending, and Scheduled Orders This section includes a listing of several types of active, pending, and scheduled orders, including clinic medications orders, diagnostic test orders, procedure orders and consult orders; where the start date of the order is 45 days before the date of the Encounter or 45 days after the date of theEncounter. The data comes from all [facility] hospital. Test Date/Time Test Type Test Details Facility Name Jun 25, 2024 04:24 PM Consult Order COMMUNITY CARE-DENTAL GENERAL Cons Biomedical Engineering Supervisor's Choice [facility] Social History: Smoking Status (Most current) [...] 21, 2020 02:14 PM VA-TOBACCO NEVER USED [facility] Encounter Notes: All associated encounter notes This section contains the clinical notes associated to the Encounter. Date/Time Encounter Note(s) Provider Source Jul 27, 2024 10:57 AM DENTISTRY NOTE: LOCAL TITLE: DENTAL NOTE STANDARD TITLE: DENTISTRY NOTE DATE OF NOTE: JUL 27, 2024@10:57 ENTRY DATE: JUL 27, 2024@11:05:27 AUTHOR: EVY KEYES EXP COSIGNER: URGENCY: STATUS: COMPLETED Patient Name: DENISSE ALLEN, : 1990, Age: 33 Visit: S: Jul 27, 2024@10:30 [facility] DENTAL. Primary PCE Diagnosis: G47.33 (OBSTRUCTIVE SLEEP APNEA (ADULT) (PEDIATRIC)). Dental Category: 15-OPC, Class IV. Treatment Status: Active. Completed Care: ([id number]) OFFICE O/P EST LOW 20 MIN. DX: [...] Appliance no contraindications, patient consents to appointment [facility] appointment: pateint confirms able to connect, [...] Rx noted Appliance Type: ProSomnus CA LP with L0 arch Reviewed appliance use - using it nightly but still having sleep interruptions Patient reports waking up around 3am most nights, having difficulty falling back asleep, at which point he may remove the appliance to try drifting asleep. Not havign pain with appliance but the presence of it at that time interferes with ability to relax and sleep. Patient also notes dryness to oral cavity - will try rx saliva susbtitute to see if that helps Recommend we do not make any protrusive changes at this time until pt able to sleep through the night successfully. Pt noted adjustments from tooth pressure have helped, no longer having any tooth pressure in anterior teeth as addressed at last visit (06-26 and ) Patient is working with [facility] for dental care, but declines crowns 8,9 at this time. Will send Rx F- toothpaste to address sensitivity #8 facial where composite flaked off - pt agreed. can also reassess pt in clinic for alternative desensitizing liners and bonding agents. Fit of appliance good fit, definitely no longer tight to teeth (pt notes it can almost be on the loose side) CHARLES FU by sleep team scheduled? Not yet, but patient still working with other sleep pattern and insomnia issues, will be followed by Dr. Lowe has upcoming appointment, patinet may discuss additional sleep Rx options Patient given time to have all questions answered FTF time 15 minutes /mercedes/ ISABELLE CERON Character Actress, Chief Dental Service Signed: 07/27/2024 11:05 Receipt Acknowledged By: 07/27/2024 18:19 /mercedes/ MIGUELITO LOWE MD STAFF PSYCHIATRIST ISABELLE KEYES [facility]
--- OUTSIDE RECORDS SUMMARY | 2024-11-05 09:38 | XMS_ITS | Encounter Summary ---
Author Name [place] Organization [place] Address [address] [place] [address] Support Name Relationship Address Phone TIFFANY LEIGHTON Next of Kin [address] [address] LEIGHTON ALLEN Emergency Contact [address] [place] [address] Care Team Providers Care Railcar Carpenter Name Role Phone YVONNE ESTEBAN Primary Care [...] CT DEPT OF COR Aug 17, 2020 [id number] [id number] ALLEN,CAR LOS PATIENT BCBS [place] (BLUE CARD) PREFERRED PROVIDER ORGANIZAT ION (PPO) ST OF [facility] DEPT OF COR Aug 17, 2020 [id number] 00H [id number] [phone] ALLEN,CAR LOS PATIENT [facility] PRESCRIPT I[facility] Aug 17, 2020 [id number] ALLEN,CAR LOS PATIENT [place] PRESCRIPT ION [facility] Aug 17, 2020 [id number] [phone] ALLEN,CAR LOS PATIENT Selected Encounter This section includes the information on record at [place] for the Encounter. Date/Time Encounter Type Encounter Description Reason Pro vider Source Sep 24, 2024 09:19 AM Outpatient Encounter DENTAL IHE Encounter Template Text not used by [place] Plan of Treatment: Future Appointments (+ 6 months) and Future Tests (+/- 45 days) The Plan of Treatment section includes future care activities for the patient from all [place] [facility]. This section includes future appointments and future orders which are active, pending or scheduled. Future Appointments This section includes appointments that were scheduled to occur 6 months from the date of the Encounter, up to a maximum of 20 appointments. The data comes from all [facility]. Appointment Date/Time Appointment Type Appointme nt Facility Name Oct 11, 2024 09:00 AM AMBULATORY - PSYCHIATRY [facility] Oct 11, 2024 09:30 AM AMBULATORY - NONE [place] [facility] [place] [facility] Oct 27, 2024 04:00 PM [facility] [place] [facility] Nov 02, 2024 09:30 AM AMBULATORY - NONE [place] [facility] [place] [facility] Dec 02, 2024 09:00 AM AMBULATORY - PSYCHIATRY [facility] Dec 30, 2024 10:30 AM [facility] Active, Pending, and Scheduled Orders This section includes a listing of several types of active, pending, and scheduled orders, including clinic medications orders, diagnostic test orders, procedure orders and consult orders; where the start date of the order is 45 days before the date of the Encounter or 45 days after the date of theEncounter. The data comes from all [facility]. Test Date/Time Test Type Test Details Facility Name Nov 02, 2024 02:06 PM Consult Order COMMUNITY CARE-DENTAL SPECIALTY Cons Rhit's Choice [place] [facility] [place] [facility] Nov 02, 2024 05:07 PM Consult Order HOME SLEEP STUDY NOX/SPOPC OUTPT Cons Rhit's Choice [place] Social History: Smoking Status (Most current) and [...] 21, 2020 02:14 PM VA-TOBACCO NEVER USED [place] [facility] [place] [facility] Encounter Notes: All associated encounter notes This section contains the clinical notes associated to the Encounter. Date/Time Encounter Note(s) Provider Source Sep 24, 2024 09:19 AM DENTISTRY TELEPHON E ENCOUNTER NOTE: LOCAL TITLE: TELEPHONE NOTE/DENTAL STANDARD TITLE: DENTISTRY TELEPHONE ENCOUNTER NOTE DATE OF NOTE: SEP 24, 2024@09:19 ENTRY DATE: SEP 24, 2024@09:20:02 AUTHOR: ALICAI LAROSE EXP COSIGNER: URGENCY: STATUS: COMPLETED Spoke with pt to confirm dental appointment on 09/28/2024 at 9:30 am /mercedes/ ALICIA LAROSE ADVANCED COMPUTER SCIENCE PROFESSOR Signed: 09/24/2024 09:21 ALICIA LAROSE [place] [facility] [place] [facility]
--- OUTSIDE RECORDS SUMMARY | 2024-11-05 09:38 | XMS_ITS | Encounter Summary ---
Author Name [place] Address [address] [place] [address] Support Name Relationship Address Phone TIFFANY LEIGHTON Next of Kin [address] [place] [address] LEIGHTON ALLEN Emergency Contact [address] [place] [address] Care Team Providers Care Workers Compensation Coordinator Name Role Phone YVONNE ESTEBAN Primary Care [...] CT DEPT OF COR Aug 17, 2020 [id number] ALLEN,CAR LOS PATIENT [place]BS [place] (BLUE CARD) PREFERRED PROVIDER ORGANIZAT ION (PPO) ST OF [facility] DEPT OF COR Aug 17, 2020 [id number] [id number] [phone] ALLEN,CAR LOS PATIENT [facility] PRESCRIPT [facility] Aug 17, 2020 [id number] [phone] ALLEN,CAR LOS PATIENT [employer] PRESCRIPT ION [facility] Aug 17, 2020 [id number] [phone] ALLEN,CAR LOS PATIENT Selected Encounter This section includes the information on record at [place] for the Encounter. Date/Time Encounter Type Encounter Description Reason Pro vider Source Oct 08, 2024 08:51 AM Outpatient Encounter DENTAL IHE Encounter Template Text not used by [place] Plan of Treatment: Future Appointments (+ 6 months) and Future Tests (+/- 45 days) The Plan of Treatment section includes future care activities for the patient from all [place] [facility]. This section includes future appointments and future orders which are active, pending or scheduled. Future Appointments This section includes appointments that were scheduled to occur 6 months from the date of the Encounter, up to a maximum of 20 appointments. The data comes from all [facility]. Appointment Date/Time Appointment Type Appointme nt Facility Name Oct 11, 2024 09:00 AM AMBULATORY - PSYCHIATRY [facility] Oct 11, 2024 09:30 AM AMBULATORY - NONE [place] [facility] [place] [facility] Oct 27, 2024 04:00 PM [facility]ONE [place] [facility] Nov 02, 2024 09:30 AM AMBULATORY - NONE [place] [facility] [place] [facility] Dec 02, 2024 09:00 AM AMBULATORY - PSYCHIATRY [facility] Dec 30, 2024 10:30 AM AMBULATORY - NONE [facility] Active, Pending, and Scheduled Orders This section includes a listing of several types of active, pending, and scheduled orders, including clinic medications orders, diagnostic test orders, procedure orders and consult orders; where the start date of the order is 45 days before the date of the Encounter or 45 days after the date of theEncounter. The data comes from all [facility]. Test Date/Time Test Type Test Details Facility Name Nov 02, 2024 02:06 PM Consult Order COMMUNITY CARE-DENTAL SPECIALTY Cons Lasting Room Machine Operator's Choice [place] [facility] [place] [facility] Nov 02, 2024 05:07 PM Consult Order HOME SLEEP STUDY NOX/SPOPC OUTPT Cons Lasting Room Machine Operator's Choice [facility] Social History: Smoking Status (Most current) and Tobacco Use (All prior to encounter date) This section includes the most current, and the historical, smoking and tobacco- related health factors from the [place] facility where the Encounter took place. Current Smoking Status This section includes the most current smoking, or tobacco-related health factor, from the [place] facility where the Encounter took place. Date/Time Current Smoking Status Comment Facil ity Apr 21, 2020 02:14 PM VA-TOBACCO NEVER USED [place] [facility] [place] [facility] Encounter Notes: All associated encounter notes This section contains the clinical notes associated to the Encounter. Date/Time Encounter Note(s) Provider Source Oct 08, 2024 08:51 AM DENTISTRY TELEPHON E ENCOUNTER NOTE: LOCAL TITLE: TELEPHONE NOTE/DENTAL STANDARD TITLE: DENTISTRY TELEPHONE ENCOUNTER NOTE DATE OF NOTE: OCT 08, 2024@08:51 ENTRY DATE: OCT 08, 2024@08:51:42 AUTHOR: ALICIA LAROSE EXP COSIGNER: URGENCY: STATUS: COMPLETED Spoke with pt to confirm dental appointment on 10/11/2024 at 9:30 am. /mercedes/ ALICIA LAROSE ADVANCED TEACHER HEARING IMPAIRED Signed: 10/08/2024 08:52 ALICIA LAROSE [place] [facility] [place] [facility]
--- OUTSIDE RECORDS SUMMARY | 2024-11-05 09:38 | XMS_ITS ---
Author Name [facility] [place] Address [address] [place] [address] Support Name Relationship Address Phone LEIGHTON ALLEN Next of [place] [address] [address] LEIGHTON ALLEN Emergency Contact [address] [place] [address] Care Team Providers Care Jukebox Operator Name Role Phone YVONNE ESTEBAN Primary [...] CT DEPT OF COR Aug 17, 2020 [id number] [id number] [phone] ALLEN,CAR LOS PATIENT BCBS [place] (BLUE CARD) PREFERRED PROVIDER ORGANIZAT ION (PPO) ST OF [facility] DEPT OF COR Aug 17, 2020 [id number] 00H [id number] ALLEN,CAR LOS PATIENT [facility] PRESCRIPT [facility] Aug 17, 2020 [id number] ALLEN,CAR LOS PATIENT [facility] PRESCRIPT ION [facility] Aug 17, 2020 [id number] [phone] ALLEN,CAR LOS PATIENT Selected Encounter This section includes the information on record at [place] for the Encounter. Date/Time Encounter Type Encounter Description Reason Provider Source Oct 27, 2024 04:00 PM CASE MGMT-ORAL HEALTH LIT DENTAL ICD-10-CM K03.6 Deposits [accretions] on teeth BRIDGER RODRIGUEZ IHE Encounter Template Text not used by [place] Assessments - Encounter Diagnoses This section includes the primary and secondary diagnoses documented for the Encounter. Date/Time Primary/Secondary Diagnosis Diagnosis Name Provider Source Oct 27, 2024 04:49 PM PRIMARY Deposits [accretions] on teeth BRIDGER [facility]IGUEZ [facility] Plan of Treatment: Future Appointments (+ 6 months) and Future Tests (+/- 45 days) The Plan of Treatment section includes future care activities for the patient from all [place] treatmentfacilities. This section includes future appointments and future orders which are active, pending or scheduled. Future Appointments This section includes appointments that were scheduled to occur 6 months from the date of the Encounter, up to a maximum of 20 appointments. The data comes from all [place] treatment facilities. Appointment Date/Time Appointment Type Appointme nt Facility Name Nov 02, 2024 09:30 AM [facility] NONE [facility] Dec 02, 2024 09:00 AM AMBULATORY - PSYCHIATRY [facility] Dec 30, 2024 10:30 AM [facility] [place] [facility] April 12, 2025 09:30 AM [facility] [place] [facility] Apr 26, 2025 03:00 PM [facility] NONE [facility] Active, Pending, and Scheduled Orders This section includes a listing of several types of active, pending, and scheduled orders, including clinic medications orders, diagnostic test orders, procedure orders and consult orders; where the start date of the order is 45 days before the date of the Encounter or 45 days after the date of theEncounter. The data comes from all [place] treatment [facility]. Test Date/Time Test Type Test Details Facility Name Nov 02, 2024 02:06 PM Consult Order COMMUNITY CARE-DENTAL SPECIALTY Cons Pattern Stamper's Choice [facility] Nov 02, 2024 05:07 PM Consult Order HOME SLEEP STUDY NOX/SPOPC OUTPT Cons Pattern Stamper's Choice [facility] Social History: Smoking Status (Most current) and [...] 21, 2020 02:14 PM VA-TOBACCO NEVER USED [place] [facility] [place] [facility] Encounter Notes: All associated encounter notes This section contains the clinical notes associated to the Encounter. Date/Time Encounter Note(s) Provider Source Oct 27, 2024 04:39 PM DENTISTRY NOTE: LOCAL TITLE: DENTAL NOTE STANDARD TITLE: DENTISTRY NOTE DATE OF NOTE: OCT 27, 2024@16:39 ENTRY DATE: OCT 27, 2024@16:49:09 AUTHOR: BRIDGER RODRIGUEZ COSIGNER: URGENCY: STATUS: COMPLETED Patient Name: DENISSE ALLEN, : 1990, Age: 34 Visit: S: Oct 27, 2024@16:00 [facility] DENTAL RDH 1 PM. Primary PCE Diagnosis: K03.6 (Deposits [accretions] on teeth). Dental Category: 15-OPC, Class IV. Treatment Status: Active. Completed Care: (D1110) DENTAL PROPHYLAXIS ADULT. DX: K03.6 Deposits [Accretions] on Teeth (D1206) TOPICAL FLUORIDE VARNISH. DX: K03.6 Deposits [Accretions] on Teeth (D1330) ORAL HYGIENE INSTRUCTION. DX: K03.6 Deposits [Accretions] on Teeth (D9994) CASE MGMT-ORAL HEALTH LIT. DX: K03.6 Deposits [Accretions] on Teeth Oral Health Assessment Findings: Plaque Index: 1 - Slight Xerostomia: 0 - None Caries Risk: 2 - Moderate Oral Hygiene: 1 - Good - - - - - - - - - - - - - - - - - - - - - - - - - - - - - - TIME OUT/Safety goals were verified immediately prior to the procedure. (Correct patient, procedure, site, position) Full name and date used. STERILIZATION MONITOR IN INSTRUMENT PACK CHECKED AND CONFIRMED CC: No concerns PREMEDICATION: Not indicated PAST MEDICAL HISTORY: Reviewed, no contraindications for treatment. LAST RADIOGRAPHS: PANO: 11/26/22 NEW RADIOGRAPHS: Not due SOFT TISSUE SCREENING: no abnormalities noted EXAMINATION: Not due ORAL HYGIENE ASSESSMENT: localized light plaque localized lightstain PERIODONTAL ASSESSMENT: no calculus localized light inflammation generalized light bleeding generalized recession REVIEWED ORAL HEALTH REPORT: CARIES RISK: moderate GUM DISEASE: low ORAL CANCER RISK:n/a DENTAL TREATMENT PROVIDED: PROPHYLAXIS - hand scaling, piezo, serbian, floss TOPICAL FLUORIDE APPLICATION - Varnish PRE-RINSE WITH CREST RINSE ORAL HYGIENE INSTRUCTIONS GIVEN TO PATIENT: Patient brushes one a day with a manual toothbrush. Discussed brushing 2 times a day for 2 minutes each and flossing daily. Discussed angling bristles into gumlines to remove plaque and bacteria. DISPOSITION: 6 MONTHS RECARE NEXT VISIT: roxie chirinos/ BRIDGER RODRIGUEZ RDH [facility], DENTAL SERVICE Signed: 10/27/2024 16:49 BRIDGER RODRIGUEZ [place] [facility]
--- OUTSIDE RECORDS SUMMARY | 2024-11-05 09:38 | XMS_ITS | Encounter Summary ---
Author Name [facility] [place] Organization [place] Address [address] [place] [address] Support Name Relationship Address Phone TIFFANY LEIGHTON Next of Kin [address] [address] LEIGHTON ALLEN Emergency Contact [address] [place] [address] Care Team Providers Care Kraft Digester Operator Name Role Phone YVONNE ESTEBAN Primary [...] CT DEPT OF COR Aug 17, 2020 [id number] [phone] ALLEN,CAR LOS PATIENT BCBS [place] (BLUE CARD) PREFERRED PROVIDER ORGANIZAT ION (PPO) ST OF [facility] DEPT OF COR Aug 17, 2020 [id number] 00H [id number] ALLEN,CAR LOS PATIENT [facility]EM[facility] PRESCRIPT I[facility] Aug 17, 2020 [id number] [phone] ALLEN,CAR LOS PATIENT [facility] PRESCRIPT ION [facility] Aug 17, 2020 [id number] [phone] ALLEN,CAR LOS PATIENT Selected Encounter This section includes the information on record at [place] for the Encounter. Date/Time Encounter Type Encounter Description Reason Pro vider Source Jul 29, 2024 10:03 AM Outpatient Encounter DENTAL IHE Encounter Template Text not used by [place] Plan of Treatment: Future Appointments (+ 6 months) and Future Tests (+/- 45 days) The Plan of Treatment section includes future care activities for the patient from all [place] [facility]. This section includes future appointments and future orders which are active, pending or scheduled. Future Appointments This section includes appointments that were scheduled to occur 6 months from the date of the Encounter, up to a maximum of 20 appointments. The data comes from all [facility]. Appointment Date/Time Appointment Type Appointme nt Facility Name Aug 05, 2024 02:00 PM AMBULATORY - [facility]RY [facility] Oct 11, 2024 09:00 AM AMBULATORY - [facility]RY [facility] Oct 11, 2024 09:30 AM [facility]UL[facility] Oct 27, 2024 04:00 PM [facility]UL[facility] - [facility] Nov 02, 2024 09:30 AM [facility] [place] [facility] Dec 02, 2024 09:00 AM AMBULATORY - PS[facility]CHIATRY [facility] Dec 30, 2024 10:30 AM [facility] Active, Pending, [...] of theEncounter. The data comes from all [facility]. Test Date/Time Test Type Test Details Facility Name Jun 25, 2024 04:24 PM Consult Order COMMUNITY CARE-DENTAL GENERAL Cons Welt Insole Channeler's Choice [facility] Social History: Smoking Status (Most current) and [...] Encounter. Date/Time Encounter Note(s) Provider Source Jul 29, 2024 10:03 AM DENTISTRY TELEPHON E ENCOUNTER NOTE: LOCAL TITLE: TELEPHONE NOTE/DENTAL STANDARD TITLE: DENTISTRY TELEPHONE ENCOUNTER NOTE DATE OF NOTE: JUL 29, 2024@10:03 ENTRY DATE: JUL 29, 2024@10:04:01 AUTHOR: ALICIA LAROSE EXP COSIGNER: URGENCY: STATUS: COMPLETED TELEPHONE NOTE/DENTAL Has ADDENDA [facility] Toll Free Number Primary Care Telephone Assistance can be reached at ext. [phone] option 2 [facility] scheduling can be reached at ext. [phone] option 2 [facility] scheduling can be reached at ext. [phone] option 3 JUL 29, 2024 DENISSE ALLEN [address] [place] [phone] Dear DENISSE ALLEN We have been attempting to contact you by phone to schedule a dental appointment that was requested for you. If you are interested in scheduling this appointment, please call us back at ext. [phone] or Toll Free and follow the prompts for our Telephone Call Center. Our clinic hours are Friday through Friday 8:00 am to 4:30 pm. Sincerely, Your Dental Care Team [address] [address] /mercedes/ ALICIA LAROSE ADVANCED FURNITURE REPAIRER Signed: 07/29/2024 10:04 07/29/2024 ADDENDUM STATUS: COMPLETED ADMINISTRATIVE CONTACT HAS orders: [facility] Able to contact patient: Spoke to Patient/Patient inside account representative per policy utilizing HIPAA Guidelines. Attempts to contact: 1st attempt: Left voicemail 07/15 2nd attempt: Letter mailed Disposition on Jul 3rd attempt: Left voicemail 4th attempt: mailed /mercedes/ ALICIA LAROSE ADVANCED FURNITURE REPAIRER Signed: 07/29/2024 10:04 ALICIA LAROSE [facility] [place] [facility]
--- OUTSIDE RECORDS SUMMARY | 2024-11-05 09:38 | XMS_ITS ---
Author Name [facility] [place] Organization [place] Address [address] [place] [address] Support Name Relationship Address Phone LEIGHTON ALLEN Next of Kin [address] [address] LEIGHTON ALLEN Emergency Contact [address] [place] [address] Care Team Providers Care Trucker Name Role Phone YVONNE ESTEBAN Primary Care [...] CT DEPT OF COR Aug 17, 2020 [id number] ALLEN,CAR LOS PATIENT BCBS [place] ([place] CARD) PREFERRED PROVIDER ORGANIZAT ION (PPO) ST OF [facility] DEPT OF COR Aug 17, 2020 [id number] [phone] ALLEN,CAR LOS PATIENT CAREMARK PRESCRIPT ION [facility] Aug 17, 2020 [id number] [phone] ALLEN,CAR LOS PATIENT CAREM[facility] PRESCRIPT ION [facility] Aug 17, 2020 [id number] [phone] ALLEN,CAR LOS PATIENT Selected Encounter This section includes the information on record at [place] for the Encounter. Date/Time Encounter Type Encounter Description Reason Provider Source Nov 02, 2024 09:30 AM OFFICE O/P EST LOW 20 MIN DENTAL ICD-10-CM G47.33 Obstructive sleep apnea (adult) (pediatric) KAYCE KEYES IHE Encounter Template Text not used by [place] Assessments - Encounter Diagnoses This section includes the primary and secondary diagnoses documented for the Encounter. Date/Time Primary/Secondary Diagnosis Diagnosis Name Provider Source Nov 02, 2024 01:24 PM PRIMARY Obstructive sleep apnea (adult) (pediatric) [facility] Nov 02, 2024 01:24 PM SECONDARY Partial loss of teeth due to caries, class I KAYCE KEYES [facility] Plan of Treatment: Future Appointments (+ 6 months) and Future Tests (+/- 45 days) The Plan of Treatment section includes future care activities for the patient from all [place] [facility]. This section includes future appointments and future orders which are active, pending or scheduled. Future Appointments This section includes appointments that were scheduled to occur 6 months from the date of the Encounter, up to a maximum of 20 appointments. The data comes from all [place] treatment facilities. Appointment Date/Time Appointment Type Appointme nt Facility Name Dec 02, 2024 09:00 AM AMBULATORY - PS[facility]CHIATRY [facility] Dec 30, 2024 10:30 AM AMBULATORY - NONE [facility] [place] [facility] April 12, 2025 09:30 AM [facility] [place] [facility] Apr 26, 2025 03:00 PM AMBULATORY - NONE [facility] Active, Pending, and Scheduled Orders This section includes a listing of several types of active, pending, and scheduled orders, including clinic medications orders, diagnostic test orders, procedure orders and consult orders; where the start date of the order is 45 days before the date of the Encounter or 45 days after the date of theEncounter. The data comes from all [place] treatment facilities. Test Date/Time Test Type Test Details Facility Name Nov 02, 2024 02:06 PM Consult Order COMMUNITY CARE-DENTAL SPECIALTY Cons Corporate Representative's Choice [facility] [place] [facility] Nov 02, 2024 05:07 PM Consult Order HOME SLEEP STUDY NOX/SPOPC OUTPT Cons Corporate Representative's Choice [place] Social History: Smoking Status (Most current) and Tobacco Use (All prior to encounter date) This section includes the most current, and the historical, smoking and tobacco- related health factors from the [place] facility where the Encounter took place. Current Smoking Status This section includes the most current smoking, or tobacco-related health factor, from the [place] facility where the Encounter took place. Date/Time Current Smoking Status Comment Facil juanis Apr 21, 2020 02:14 PM VA-TOBACCO NEVER USED [place] [facility] [place] [facility] Encounter Notes: All associated encounter notes This section contains the clinical notes associated to the Encounter. Date/Time Encounter Note(s) Provider Source Nov 02, 2024 01:02 PM DENTISTRY NOTE: LOCAL TITLE: DENTAL NOTE STANDARD TITLE: DENTISTRY NOTE DATE OF NOTE: NOV 02, 2024@13:02 ENTRY DATE: NOV 02, 2024@13:24:58 AUTHOR: EVY KEYES COSIGNER: URGENCY: STATUS: COMPLETED Patient Name: DENISSE ALLEN, : 1990, Age: 34 Visit: S: Nov 02, 2024@09:30 [facility] DENTAL. Primary PCE Diagnosis: G47.33 (OBSTRUCTIVE SLEEP APNEA (ADULT) (PEDIATRIC)). Dental Category: 15-OPC, Class IV. Treatment Status: Active. Completed Care: ([id number]) OFFICE O/P EST LOW 20 MIN. DX: G47.33 Obstructive Sleep Apnea (Adult) (Pediatric) (D9995) TELEDENTISTRY SYNC REAL TIME. DX: G47.33 Obstructive Sleep Apnea (Adult) (Pediatric) - - - - - - - - - - - - - - - - - - - - - - - - - - - - - - Patient Presents for Scheduled Dental Visit. Reviewed Symptoms - no signs of illness - Pt presents with dental pain 0/10 Medication reconciliation: Patient Medications currently listed in CPRS - I performed medication reconciliation within the scope of my practice. All medications related to Dentistry are up to date. cc: patient noted improvement for teeth 8-9-10 where espinal application for desensitizing was applied at last visit. Was successful for maintinaing comfort even trough hygiene visit we reviewed the option of additional resin composite treatment to #8,9, explained would be a full restorative visit, with local anesthesia, and the oral applianc ewould need adjustment in those areas to fit without excessive pressure. At this time lazaro declines the full restorative treatment, would prefer to meet again in clinic as scheduled to review stability of anterior dentition, utilize desensitzer bonding again and plan for a future resin restorative visit Patient is interested in proceeding with oral surgery appointment for implant consult - was discussed and noted at last visit, was not yet entered but will do so today. Reviewed the steps needed to both place implant and then restore implant - will need to adjust the oral appliance once the implant crown is complete, and recommended we proceed with worship of the implant in the clinic - the patient agreed. Would order scanbody if possible for implants; patient did not wish to have care redered at [facility] but agreable to see specialist oral surgeon. Will place consult for #,30 to [facility] Patient already has appointment for FTF FU December to evaluate dentition Will alert respiratory that patient is ready for an assessment with the pulmonary/respiratory team to assess oral appliance efficacy, consider home sleep study if appropriate. Patient is currently using an oral sleep apnea device, is usign it for at least part of the night but not always through the whole night. The lazaro notes it is still challenging to accomodate to having something in his mouth. The appliance is titrated to a symptomatically therapeutic setting but we do not have data to indicate if the oral applianc eis sufficiently therapeutic; please determine what follow up steps may be needed. The patient indicates he sees a community care primary care provider. FTF time with patient 25 minutes NV- reeval dentin sensitivity, follow progress of oralsurgery consult /es/ ISABELLE CERON White Sugar Boiler, Chief Dental Service Signed: 11/02/2024 13:24 ISABELLE KEYES [place] [facility]
--- OUTSIDE RECORDS SUMMARY | 2024-11-05 09:38 | XMS_ITS | Encounter Summary ---
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 Date/Time Encounter Type Encounter Description Reason Provider Source Oct 11, 2024 09:00 AM OFFICE O/P EST MOD 30 MIN [facility] - IND ICD-10-CM F43.12 Post-traumatic stress disorder, chronic ANTHONY GABRIEL Katie Encounter Template Text not used by [place] Assessments - Encounter Diagnoses This section includes the primary and secondary diagnoses documented for the Encounter. Date/Time Primary/Secondary Diagnosis Diagnosis Name Provider Source Oct 11, 2024 09:44 AM PRIMARY Post-traumatic stress disorder, chronic MIGUELITO GABRIEL [facility] Plan of Treatment: Future Appointments (+ 6 months) and Future Tests (+/- 45 days) The Plan of Treatment section includes future care activities for the patient from all [place] [facility]. This section includes future appointments and future orders which are active, pending or scheduled. Future Appointments This section includes appointments that were scheduled to occur 6 months from the date of the Encounter, up to a maximum of 20 appointments. The data comes from all [place] treatment facilities. Appointment Date/Time Appointment Type Appointme nt Facility Name Oct 27, 2024 04:00 PM AMBULATORY - NONE [facility] Nov 02, 2024 09:30 AM AMBULATORY - NONE [facility] Dec 02, 2024 09:00 AM AMBULATORY - PSYCHIATRY [facility] Dec 30, 2024 10:30 AM AMBULATORY - NONE [facility] Active, Pending, and Scheduled Orders This section includes a listing of several types of active, pending, and scheduled orders, including clinic medications orders, diagnostic test orders, procedure orders and consult orders; where the start date of the order is 45 days before the date of the Encounter or 45 days after the date of theEncounter. The data comes from all [place] treatment facilities. Test Date/Time Test Type Test Details Facility Name Nov 02, 2024 02:06 PM Consult Order COMMUNITY CARE-DENTAL SPECIALTY [facility] Nov 02, 2024 05:07 PM Consult Order HOME SLEEP STUDY NOX/SPOPC OUTPT Cons [facility] Social History: Smoking Status (Most current) and [...] 20, 2022 01:00 PM VA-TOBACCO NEVER USED [facility] Tobacco Use History This section includes a history of the smoking, or tobacco-related health factors, that were collected on or before the date of the Encounter. The data comes from the [place] facility where the Encounter took place. Date/Time Smoking Status/Tobacco Use Comment Megan mcconnell Nov 26, 2021 11:30 AM VA-TOBACCO NEVER USED [facility] Encounter Notes: All associated encounter notes This section contains the clinical notes associated to the Encounter. Date/Time Encounter Note(s) Provider Source Oct 11, 2024 09:03 AM TELEHEALTH NOTE: LOCAL TITLE: [place] VIDEO CONNECT PSYCHIATRIST NOTE STANDARD TITLE: TELEHEALTH NOTE DATE OF NOTE: OCT 11, 2024@09:03 ENTRY DATE: OCT 11, 2024@09:03:10 AUTHOR: MIGUELITO GARBIEL COSIGNER: URGENCY: STATUS: COMPLETED VA Video Connect (VVC) Standard Documentation VVC Clinician Resources Only: E911 (Emergency Call Relay Center): [phone] National Veterans Crisis Line - 988 then press #1. [facility] Suicide Coordinator [phone], Ext. [phone]; Back-up Ext. [phone] [place] Police, Darryl ZAPATA [phone] Introduction: Visit is being conducted by [place] [employer]. identified with 2 identifiers: [X] Full Name [X] Date of [ ] VA ID Card Emergency Plan: confirmed and/or provided the following information in case of emergency or technology failure. PATIENT PHONE - PHONE NUMBER [CELLULAR] - Is patient phone number correct, if not, enter below: 's phone number: DENISSE MARQUES TIFFANY [address] [place] [address], [phone] 's present location and address for appointment: [facility] [place]'s emergency contact name and phone number: chart reported that location is private and safe: Yes Informed Consent: informed of the risks and benefits of Telehealth video care. [place] has the right to refuse video services. If refuses video visit, a [id number] visit will be scheduled. [place] verbalized consent for this video visit: Yes provided consent for any other persons present for visit: N/A If yes, who and relationship to patient: Secure visit: Visit was locked for security and privacy:Yes 30 min for encounter, including chart review, interview, charting chart reviewed see my 05/26/20 note for more hx Patient relatively stable, with usual presentation. Again, ongoing stressors, but managable. As noteds in previous appointments, pt again despite some ongoing symptoms, he does present with general improvement in depression, anxiety, PTSD symptoms, and he again feels the Zoloft is helping at least partially even at the low-dose. Again, despite my encouragement to increase the zoloft dose to further improve symptoms, the patient is firmly against increasing the dose of Zoloft (which is low) because in general he wants to minimize medication. This is his stance on medication generally. Affect brightens appropriately. Pt denies SI and violent ideation. Thoughts are well organized. Denies history of hallucinations. No paranoid or delusional content presented. Speech normal. Cognitive exam grossly normal. Good self-care. No slowing noted. Has interests. Future oriented. 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 Denies street drugs Denies medication side effects. No daytime sedation. Reports compliance with Zoloft 25 mg daily. Does not want higher dose Active problems - Computerized Problem List is the source for the followin. Exposure to potentially hazardous substance 2. Sleep apnea 3. Chronic Post-Traumatic Stress Disorder ([facility] [id number]) 4. Major depressive disorder 5. Comanagement 6. Chronic back pain 7. Migraine 8. 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 The patient also understands to call 911 or to go to ER in the event of an emergency. Psychotherapy discussion -- As noted in previous notes, pt is no longer seeing Layne Webb for psychotherapy , and pt reports can't see Bradley Rogers. Pt reports he is seeing therapist -- Ariane for couples therapy weekly -- again, pt feels this helps, he does not want individual therapist at this time. I offered him [...] increase the dose to improve symptom management. But, as with previous discussions, he does not want a higher dose [...] effects with psychiatric medication. sleep apnea -- has dental device return to clinic in 2 mo for medication check. I encouraged the [...] this VA (local) and dispensed from another VA or DoD facility (remote) as well as [...] /mercedes/ MIGUELITO GABRIEL MD STAFF PSYCHIATRIST Signed: 10/11/2024 09:44 Receipt Acknowledged By: 10/11/2024 09:57 /mercedes/ Makenzie Mccarthy [employer]VANCED POLYMER CHEMIST MIGUELITO GABRIEL
--- OUTSIDE RECORDS SUMMARY | 2024-11-05 09:38 | XMS_ITS | Encounter Summary ---
Author Name [facility] [place] [facility] [place] Organization [place] Address [address] [place] [address] Support Name Relationship Address Phone LEIGHTON ALLEN Next of Kin [address] [address] LEIGHTON ALLEN Emergency Contact [address] [place] [address] Care Team Providers Care Clearing House Clerk Name Role Phone YVONNE ESTEBAN Primary Care [...] CT DEPT OF COR Aug 17, 2020 [id number] [phone] ALLEN,CAR LOS PATIENT [place] (BLUE CARD) PREFERRED PROVIDER ORGANIZAT ION (PPO) ST OF [facility] DEPT OF COR Aug 17, 2020 [id number] 00H [id number] ALLEN,CAR LOS PATIENT [facility] PRES[facility] Aug 17, 2020 [id number] ALLEN,CAR LOS PATIENT [facility] PRESCRIPT ION [facility] Aug 17, 2020 [id number] [phone] ALLEN,CAR LOS PATIENT Selected Encounter This section includes the information on record at [place] for the Encounter. Date/Time Encounter Type Encounter Description Reason Provider Source Oct 11, 2024 09:30 AM COMPREHENSVE ORAL EVALUATION DENTAL ICD-10-CM G47.33 Obstructive sleep apnea (adult) (pediatric) JUAN DANIEL KEYES IHKatie Encounter Template Text not used by [place] Assessments - Encounter Diagnoses This section includes the primary and secondary diagnoses documented for the Encounter. Date/Time Primary/Secondary Diagnosis Diagnosis Name Provider Source Oct 11, 2024 10:21 AM PRIMARY Obstructive sleep apnea (adult) (pediatric) KAYCE KEYES [facility] Plan of Treatment: Future Appointments (+ 6 months) and Future Tests (+/- 45 days) The Plan of Treatment section includes future care activities for the patient from all [place] [facility]. This section includes future appointments and future orders which are active, pending or scheduled. Future Appointments This section includes appointments that were scheduled to occur 6 months from the date of the Encounter, up to a maximum of 20 appointments. The data comes from all [place] treatment facilities. Appointment Date/Time Appointment Type Appointme nt Facility Name Oct 27, 2024 04:00 PM AMBULATORY - NONE [facility] Nov 02, 2024 09:30 AM [facility] Dec 02, 2024 09:00 AM AMBULATORY - PSYCHIATRY [facility] Dec 30, 2024 10:30 AM AMBULATORY - NONE [facility] Active, Pending, and Scheduled Orders This section includes a listing of several types of active, pending, and scheduled orders, including clinic medications orders, diagnostic test orders, procedure orders and consult orders; where the start date of the order is 45 days before the date of the Encounter or 45 days after the date of theEncounter. The data comes from all [place] treatment facilities. Test Date/Time Test Type Test Details Facility Name Nov 02, 2024 02:06 PM Consult Order COMMUNITY CARE-DENTAL SPECIALTY Cons Electronic In[facility] [place] [facility] Nov 02, 2024 05:07 PM Consult Order HOME SLEEP STUDY NOX/SPOPC OUTPT Cons Electronic In[facility] Social History: Smoking Status (Most current) and Tobacco Use (All prior to encounter date) This section includes the most current, and the historical, smoking and tobacco- related health factors from the [place] facility where the Encounter took place. Current Smoking Status This section includes the most current smoking, or tobacco-related health factor, from the [place] facility where the Encounter took place. Date/Time Current Smoking Status Comment Mayra juanis Apr 21, 2020 02:14 PM VA-TOBACCO NEVER USED [place] [facility] [place] [facility] Encounter Notes: All associated encounter notes This section contains the clinical notes associated to the Encounter. Date/Time Encounter Note(s) Provider Source Oct 11, 2024 10:14 AM DENTISTRY NOTE: LOCAL TITLE: DENTAL NOTE STANDARD TITLE: DENTISTRY NOTE DATE OF NOTE: OCT 11, 2024@10:14 ENTRY DATE: OCT 11, 2024@10:21:05 AUTHOR: EVY KEYES COSIGNER: URGENCY: STATUS: COMPLETED Patient Name: DENISSE ALLEN, : 1990, Age: 34 Visit: S: Oct 11, 2024@09:30 [facility] DENTAL DMD 4. Primary PCE Diagnosis: G47.33 (OBSTRUCTIVE SLEEP APNEA (ADULT) (PEDIATRIC)). Dental Category: 15-OPC, Class IV. Treatment Status: Active. Completed Care: (D0150) COMPREHENSVE ORAL EVALUATION. DX: G47.33 Obstructive Sleep Apnea (Adult) (Pediatric) Presentation/Chief Complaint: Patient presents for comprehensive oral evaluation to update record, initially planned for eval tooth #9 and adjust oral applaince, however patient did not bring appliance today. Patient requested Rx F- for densensitizing teeth, and to discuss his communicty care experience sensitivity tooth #9 intermittently - can be from touch or cold, not all the time. Had a filling placed at least twice by [facility] but then repeatedly chips. Patient confirms biting fingernails and has caused more chipping to tooth #8 Patinet also requesting to not return to [facility], did not feel he had consistent answers regarding implant treatment from them, conflicting information about procedure, medication, and case management, patinet did not feel comfortable proceeding. Comprehensive exam coded to allow for continued [facility] care - patient requests to return to dental clinic and consider alternative options for implant placement rather than surgery at [facility] Vital Signs: Vital signs not obtained Past Medical History and Medications: No significant changes since the last dental visit Active Problems: Exposure to potentially hazardous substance ([facility] [id number]) Sleep apnea ([facility] [id number]) Chronic Post-Traumatic Stress Disorder ([facility] [id number]) Major depressive disorder ([facility] [id number]) Comanagement (ICD-10-CM R69.) Chronic back pain ([facility] [id number]) Migraine ([facility] [id number]) History of deployment ([facility] [id number]) Active Medications: ---- Outpatient Medication ---- SODIUM FLUORIDE 1.1% TOOTHPASTE - (PENDING) UBROGEPANT TAB - (ACTIVE) AMITRIPTYLINE HCL 10MG TAB - (ACTIVE) Active Allergies: No Known Allergies Social History: Patient reports the following habits: Alcohol past use Additional Comments: extensive history deferred discusison to another date Intraoral and Extraoral Screening Exam Findings: 10/11/2024 Head and neck assessment with oral cancer screening is negative: no apparent pathology noted. Radiographic Findings: No radiographs obtained this visit Oral Examination: Oral Health Assessment Findings: Plaque Index: 1 - Slight Xerostomia: 3 - Significant Caries Risk: 2 - Moderate ??-- TIAGO Oral Hygiene: 1 - Good Dental Examination: Missing Teeth: 1, 16, 19, 30. Caries: 29(O). Defective Latter Day: 8(IF) Resin, 9(F) Resin. Faceted: 7(I), 8(I), 9(I), 10(I), 11(I). No Significant Tooth Mobility Noted Periodontal Screening/Recording (PSR): 11-17- - - - Periodontal Assessment: Chronic Generalized Slight Gingivitis TMJ Findings: History: Patient reports no symptoms associated with TMJ. Occlusal Findings: Normal Mandibular relationship generalized anterior attrition and incisal edge chipping from habits (nail biting) Assessment/Plan: Planned Procedures: Unsequenced (D2330) RESIN ONE SURFACE-ANTERIOR: 9(F). DX: (). (D2331) RESIN TWO SURFACES-ANTERIOR: 8(IF). DX: (). (D2391) POST [facility] RESINBASED CMPST: 29(O). DX: (). Reviewed risks/benefits/alternativ es associated with the proposed treatment plan. Patient agrees to treatment plan as discussed. I would approve implant placement as had been authorized previously for patient, and agree patient should be seen by a specialist for this care, will refer to oral surgery office as derick will have questions about procedure, plan to restore implants at [place]. minor restorative needs can be addressed in a visit with lazaro, plan on using articaine local to each tooth as patient has clod sensitive teeth, repair staining leakage on #8 and 29. can return in approx 8-12 weeks for this, will still discuss progress on [facility] appointment with patient. [facility] recommended. Disposition: Next visit: 1-2-3 months Patient to return to dental clinic for continuing care. - - - - - - - - - - - - - - - - - - - - - - - - - - - - - - /mercedes/ ISABELLE CERON Marketing Data Specialist, Chief Dental Service Signed: 10/11/2024 10:21 ISABELLE KEYES [place] [facility]
--- OUTSIDE RECORDS SUMMARY | 2024-11-05 09:38 | XMS_ITS ---
Author Organization [facility] Address [address] [address] Care Team Providers Care Chemical Tank Worker Name Role Phone Nena Ortiz Primary Care Provider Allergies No Known Allergies REASON FOR VISIT follow up Medications Medication SIG (Take, Route, Frequency, Duration) Notes Start Date End Date Status Albuterol Sulfate HFA 108 (9 0 Base) MCG/ACT INHALE 2 PUFFS EVERY 6 HOURS NEEDED FOR SHORTNESS OF BREATH OR WHEEZING Inhalation for 20 Days Active Cyclobenzaprine HCl 5 MG TAKE 1 TABLET B Y MOUTH EVERYDAY AT BEDTIME Oral for 20 Days Active Oseltamivir Phosphate 75 MG TAKE 1 CAPSU LE BY MOUTH TWICE A DAY FOR 5 DAYS Oral for 5 Days Active Sertraline HCl 25 MG Oral for 60 Days Active Meloxicam 15 MG TAKE 1 TABLET BY AIDAN TH EVERY DAY Oral for 30 Days Active Rizatriptan Benzoate 10 MG PLEASE SEE AT TACHED FOR DETAILED DIRECTIONS Oral for 30 Days Active Ubrelvy 100 MG TAKE 1/2-1 TABLET ON CE NEEDED AT ONSET OF MIGRAINE. MAY REPEAT IN 2 HOURS UP TO MAX 2 TABS/DAY Oral for 30 Days Active Social History Tobacco Use: Social History Observation Description Date Details (start date - stop date) Never Smoker NA - NA Tobacco Control (Standard) Question Answer Notes Tobacco use: Nonsmoker Problems Problem Type SNOMED Code ICD Code Onset Dates Problem Status W/U Status Risk Notes Problem 76617514 Vitamin D deficiency (E55.9) Active confirmed Vital Signs Heart Rate 70 /min 10/15/2024 Blood pressure systolic 140 mm Hg 10/15/20 24 Blood pressure diastolic 80 mm Hg 024 Height 71 in 10/15/2024 Weight 277 lbs 10/15/2024 BMI 38.63 kg/m2 10/15/2024 Encounters Encounter Location Date Provider Diagnosis [facility] [address] [address] 10/15/2024 Nena Diana Left foot pain M79.672 and Left lateral ankle pain M25.572 Assessments Encounter Date Diagnosis (ICD Code) Assessment Notes Treatment Notes Treatment Clinical Notes Section Notes 10/15/2024 Left foot pain (ICD-10 - M79.672) will proceed w MRI with prtho for further recd . Remaisn out of work to prevent permanent injury 10/15/2024 Left lateral ankle pain (ICD-10 - M25.572) Plan Of Treatment Treatment Notes Assessment Notes Left foot pain will proceed w MRI w ith prtho for further recd . Remaisn out of work to prevent permanent injury Pending Test Test Name Order Date Urine Cytology 10/15/2024 IRON, TIBC AND FERRITIN PANEL 10/15/2024 LIPID PANEL WITH REFLEX TO DIRECT LDL COMPREHENSIVE METABOLIC PANEL 10/15/2024 CBC (H/H, RBC, INDICES, WBC, PLT) 2023 URINALYSIS, COMPLETE W/REFLEX TO CULTURE 10/15/2024 C-REACTIVE PROTEIN 10/15/2024 HEMOGLOBIN A1c 10/15/2024 VITAMIN B12 10/15/2024 VITAMIN D, 1,25 DIHYDROXY LC/MS/MS 10/15 TSH+FREE T4 10/15/2024 Next Appt Details Follow Up: 3 Months, Reason: Provider Name:Nena Zaheer Roberta jordanradha, 11/18/2024 10:00:00 AM, [address], [address], Progress Notes * Lara ALLENOB:1990 (34 yo M)Acc No.[id number]:10/15/2024 Progress Notes Patient:?Feliciano ALLENs Provider:?Nena Ortiz MD :1990???Age:34 Y???Sex:Male Paxton e:10/15/2024 Address:[address] [place] [address] Subjective: * Chief Complaints: * ???Follow up * HPI: ???Constitutional:? 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 P denies previous trauma to ankle or surgery and otherwise considers himself healthy. * ROS:?General/Constitutional:?Denies?Chills.?Denies?Fatigue.?Denies?Fever.?Ophthalmologic:?Denies?Blurred vision.?Respiratory:?Denies?Breathing pattern.?Denies?Chest pain.?Denies?Cough.?Denies?Hemoptysis.?Denies?Pain with inspiration.?Denies?Shortness of breath.?Denies?Shortness of breath at rest.?Denies?Shortness of breath with exertion.?Denies?Sputum production.?Denies?Wheezing.?Cardiovascular:?Denies?Chest pain.?Denies?Chest pain at rest.?Gastrointestinal:?Denies?Abdominal pain.?Denies?Blood in stool.?Denies?Change in bowel habits.?Hematology:?Denies?Easy bruising.?Denies?Fever.?Genitourinary:?Denies?Pain in lower back.?Musculoskeletal:?Denies?Painful joints.?Podiatric:?Admits?Achilles swelling,?that is moderate, constant.?Admits?Ankle pain.?Neurologic:?Denies?Balance difficulty.?Denies?Coordination.?Denies?Difficulty speaking.?Denies?Dizziness.?Psychiatric:?Denies?Anxiety.?Denies?Depressed mood.?Admits?Stressors.?Denies?Substance abuse.?Denies?Suicidal thoughts.? * Medical History:? * Social History:?Tobacco Use:?Tobacco Control (Standard)?Tobacco use:?Nonsmoker * Medications:?TakingCyclobenz aprine HCl 5 MG Tablet TAKE 1 TABLET BY MOUTH EVERYDAY AT BEDTIME Oral Albuterol Sulfate HFA 108 (90 Base) MCG/ACT Aerosol Solution INHALE 2 PUFFS EVERY 6 HOURS NEEDED FOR SHORTNESS OF BREATH OR WHEEZING Inhalation Ubrelvy 100 MG Tablet TAKE 1/2-1 TABLET ONCE NEEDED AT ONSET OF MIGRAINE. MAY REPEAT IN 2 HOURS UP TO MAX 2 TABS/DAY Oral Rizatriptan Benzoate 10 MG Tablet PLEASE SEE ATTACHED FOR DETAILED DIRECTIONS Oral Sertraline HCl 25 MG Tablet Oral Oseltamivir Phosphate 75 MG Capsule TAKE 1 CAPSULE BY MOUTH TWICE A DAY FOR 5 DAYS Oral Meloxicam 15 MG Tablet TAKE 1 TABLET BY MOUTH EVERY DAY Oral Taking Cyclobenzaprine HCl 5 MG Tablet TAKE 1 TABLET BY MOUTH EVERYDAY AT BEDTIME Oral Taking Albuterol Sulfate HFA 108 (90 Base) MCG/ACT Aerosol Solution INHALE 2 PUFFS EVERY 6 HOURS NEEDED FOR SHORTNESS OF BREATH OR WHEEZING Inhalation Taking Ubrelvy 100 MG Tablet TAKE 1/2-1 TABLET ONCE NEEDED AT ONSET OF MIGRAINE. MAY REPEAT IN 2 HOURS UP TO MAX 2 TABS/DAY Oral Taking Rizatriptan Benzoate 10 MG Tablet PLEASE SEE ATTACHED FOR DETAILED DIRECTIONS Oral Taking Sertraline HCl 25 MG Tablet Oral Taking Oseltamivir Phosphate 75 MG Capsule TAKE 1 CAPSULE BY MOUTH TWICE A DAY FOR 5 DAYS Oral Taking Meloxicam 15 MG Tablet TAKE 1 TABLET BY MOUTH EVERY DAY Oral * Allergies:?N.K.D.A.no[Allerg ies Verified] Objective: * Vitals:?HR:70/min, BP:140/80 mm Hg, Ht: 71 in, Wt:277lbs, BMI:38.63Index, Ht-cm: 180.34, Wt-k.64. * Examination: ???General Examination: ?GENERAL APPEARANCE:?in no acute distress, well developed, well nourished.?HEAD:?normocephalic, atraumatic.?EYES:?pupils equal, round, reactive to light and accommodation.?EARS:?normal.?ORAL CAVITY:?mucosa moist.?THROAT:?clear.?NECK/THYROID:?neck supple, full range of motion, no cervical lymphadenopathy.?SKIN:?no suspicious lesions, warm and dry.?HEART:?no murmurs, regular rate and rhythm, S1, S2 normal.?LUNGS:?clear to auscultation bilaterally.?ABDOMEN:?normal,.?EXTREMITIES:?no clubbing, cyanosis, or edema.?PERIPHERAL PULSES:?2+ radial.?NEUROLOGIC:?nonfocal, motor strength normal upper and lower extremities, sensory exam intact.?PODIATRIC:?left ankle with swelling and tenderness to touch medially, Limping att the walk.? Assessment: * Assessment: 1.?Left foot pain - M79.672 (Primary)???2.?Left lateral ankle pain - M25.572??? Plan: * Treatment: * Labs:? * ?Lab: HEMOGLOBIN A1c ?Lab: Urine Cytology ?Lab: LIPID PANEL WITH R EFLEX TO DIRECT LDL ?Lab: VITAMIN D, 1,25 DI HYDROXY LC/MS/MS ?Lab: CBC (H/H, RBC, IND ICES, WBC, PLT) ?Lab: IRON, TIBC AND RICHY RITIN PANEL ?Lab: URINALYSIS, COMPLE TE W/REFLEX TO CULTURE ?Lab: C-REACTIVE PROTEIN ?Lab: COMPREHENSIVE META BOLIC PANEL ?Lab: VITAMIN B12 ?Lab: TSH+FREE T4 * Procedure Codes:? 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 P denies previous trauma to ankle or surgery and otherwise considers himself healthy Examination Category Sub-Category Detail Notes Category Not es General Examination GENERAL APPEARANCE: in no ac norman distress, well developed, well nourished HEAD: normocephalic, atrau matic EYES: pupils equal, round, reactive to light and accommodation EARS: normal THROAT: clear NECK/THYROID: neck supple, full ra nge of motion, no cervical lymphadenopathy HEART: no murmurs, regular rate and rhythm, S1, S2 normal LUNGS: clear to auscultatio n bilaterally ABDOMEN: normal, NEUROLOGIC: nonfocal, motor stre ngth normal upper and lower extremities, sensory exam intact SKIN: no suspicious lesion s, warm and dry EXTREMITIES: no clubbing, cyanosi s, or edema PERIPHERAL PULSES: 2+ radial ORAL CAVITY: mucosa moist PODIATRIC: left ankle with swel ling and tenderness to touch medially, Limping att the walk
--- OUTSIDE RECORDS SUMMARY | 2024-11-05 09:38 | XMS_ITS ---
Author Name [facility] [place] Organization [facility] [facility] [place] Address [address] [place] [address] Support Name Relationship Address Phone LEIGHTON ALLEN Next of Kin [address] [address] LEIGHTON ALLEN Emergency Contact [address] [address] Care Team Providers Care Beater Engineer Helper Name Role Phone YVONNE ESTEBAN Primary Care Provider Unava ilvelvet Insurance Providers: All historical and current Section [...] [facility] Aug 17, 2020 [id number] ALLEN,CAR LOS PATIENT [place] (BL[place]) PREFERRED PROVIDER ORGANIZAT ION (PPO) [facility] Aug 17, 2020 [id number] ALLEN,CAR LOS PATIENT [facility] PRESCRIPT ION [facility] Aug 17, 2020 [id number] ALLEN,CAR LOS PATIENT [place] PRES[facility]ON [facility] Aug 17, 2020 [id number] [phone] ALLEN,CAR LOS PATIENT Selected Encounter This section includes the information on record at [place] for the Encounter. Date/Time Encounter Type Encounter Description Reason Pro vider Source Sep 21, 2024 08:51 AM Outpatient Encounter [facility] Encounter Template Text not used by [place] Plan of Treatment: Future Appointments (+ 6 months) and Future Tests (+/- 45 days) The Plan of Treatment section includes future care activities for the patient from [facility] [place] [facility] This section includes future appointments and future orders which are active, pending or scheduled. Future Appointments This section includes appointments that were scheduled to occur 6 months from the date of the Encounter, up to a maximum of 20 appointments. The data comes from all [facility]. Appointment Date/Time Appointment Type Appointme nt Facility Name Oct 11, 2024 09:00 AM AMBULATORY - PSYCHIATRY [facility] Oct 11, 2024 09:30 AM AMBULATORY - NONE [facility] [place] [facility] Oct 27, 2024 04:00 PM AMBULATORY - NONE [facility] [place] [facility] Nov 02, 2024 09:30 AM AMBULATORY - NONE [facility] [place] [facility] Dec 02, 2024 09:00 AM AMBULATORY - PSYCHIATRY [facility] Dec 30, 2024 10:30 AM [facility] Active, Pending, and Scheduled Orders This section includes a listing of several types of active, pending, and scheduled orders, including clinic medications orders, diagnostic test orders, procedure orders and consult orders; where the start date of the order is 45 days before the date of the Encounter or 45 days after the date of theEncounter. The data comes from all [facility]. Test Date/Time Test Type Test Details Facility Name Nov 02, 2024 02:06 PM Consult Order COMMUNITY CARE-DENTAL SPECIALTY Cons Senior Solutions Architect's Choice [facility] [place] [facility] Nov 02, 2024 05:07 PM Consult Order HOME SLEEP STUDY NOX/SPOPC OUTPT Cons [employer] Architect[facility] Choice [place] Social History: Smoking Status (Most current) and [...] VA-TOBACCO NEVER USED [facility] [place] [facility] Encounter Notes: All associated encounter notes This section contains the clinical notes associated to the Encounter. Date/Time Encounter Note(s) Provider Source Sep 21, 2024 08:51 AM ADMINISTRATIVE NOT E: LOCAL TITLE: ADMINISTRATIVE NOTE STANDARD TITLE: ADMINISTRATIVE NOTE DATE OF NOTE: SEP 21, 2024@08:51 ENTRY DATE: SEP 21, 2024@08:51:41 AUTHOR: TEAGAN MCCARTHY EXP COSIGNER: URGENCY: STATUS: COMPLETED Business Computers Teacher called PT to RS CX BY PT APPT> SPOKE TO PT SAID HE WILL CALL BACK ONCE HE KNOWS WORK MAX. 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
--- OUTSIDE RECORDS SUMMARY | 2024-11-05 09:39 | XMS_ITS | Data Portability ---
Author Organization [facility]OHREH [facility], [facility] Address [address] [place] [address] Care Team Providers Care Crystal Calibrator Name Role Phone [facility] Primary Care Provider Assessment No assessment recorded. Plan of Treatment Reminders Order Date Submit Date Provider Last Modified By Organization Details Last Modified Time Details Appointments None recorded. Lab culture, respiratory 2022 023 [place], [address] [place] [address], [place], [address], 3 16:06:43 rapid flu (A+B) 2022 023 [place] [address], [address] [place] [address], [phone], 3 16:46:11 rapid SARS CoV 2 Ag, QL IA, respiratory specimen 2022 023 [place] [address] [facility], [address] [place] [address], [address], 3 16:46:11 rapid strep group A, throat 2022 023 [place] [address], [address] [place] [address], [address], 3 16:46:10 Referral None recorded. Procedures None recorded. Surgeries None recorded. Imaging None recorded. Medication Orders penicillin V potassium 500 mg tablet 2022 023 [id number], [address] [facility], [place], [address], 16:46:13 Patient TargetsNo targets recorded. Patient Instructions Encounter Date Encounter Id Patient Instructions Last Modified By Organization Details Last Modified Time 11/24/2022 [id number] sore throat: car e instructions [email or web address] Not available 11/24/2022 16:46:27 cough: care instructions [email or web address] Not available 11/24/2022 16:46:11 headache: care instructions [email or web address] Not available 11/24/2022 16:46:11 Reason for Referral None Reported. Results Created Date Observation Date Name Description Value Unit Range Abnormal Flag Note LastModifiedBy Organization Detail LastModifiedTime 11/24/1911/27/2022 UPPER RESPI RATOR Y CULTU RE upper respiratory culture FINAL REPORT Not Available [facility] ([facility]) [address] [facility], [place], [address], 11/27/2022 10:06:50 11/24/19 23 11/27/2022 UPPER RESPI RATOR Y CULTU RE result 1 COMMEN T Routi ne respi rator y annamaria Not Available [facility] ([facility]) [address] [facility], [place], [address], 11/27/2022 10:06:50 11/24/19 23 11/25/2022 PLEAS E NOTE please note Commen t The date and/o r time of colle ction was not indic ated on the requi sitio n as requi red by state and andres al law. The date of recei pt of the speci men was used as the colle ction date if not suppl ied. Not Available [facility] ([facility]) [address] [facility], [place], [address], 11/26/2022 16:06:44 11/24/19 23 11/24/2022 rapid SARS CoV 2 Ag, QL IA, respi rator y speci men Unknown Analyte Normal =Negat vaughn Not Available [address] [place] [address], [place], [address], 11/24/2022 16:14:55 11/24/19 23 11/24/2022 rapid SARS CoV 2 Ag, QL IA, respi rator y speci men Unknown Analyte negati ve Not Available [address] [place] [address], [place], [phone], 11/24/2022 16:14:55 11/24/19 23 11/24/2022 rapid flu (A+B) Unknown Analyte Normal = Negati ve Not Available [address] [place] [address], [place], [phone], 11/24/2022 16:14:48 11/24/19 23 11/24/2022 rapid flu (A+B) Unknown Analyte negati ve Not Available [address] [place] [address], [place], [address], 11/24/2022 16:14:48 11/24/19 23 11/24/2022 rapid flu (A+B) Unknown Analyte Normal = Negati ve Not Available [address] [place] [address], [place], [address], 11/24/2022 16:14:48 11/24/19 23 11/24/2022 rapid flu (A+B) Unknown Analyte negati ve Not Available [address] [place] [address], [place], [phone], 11/24/2022 16:14:48 11/24/19 23 11/24/2022 rapid strep group A, throa t Unknown Analyte Normal = Negati ve Not Available [address] [place] [address], [place], [address], 11/24/2022 16:15:00 11/24/19 23 11/24/2022 rapid strep group A, throa t Unknown Analyte negati ve Not Available [address] [address] [facility] [address] [place] [address], [place], [address], 11/24/2022 16:15:00 Result Notes None recorded. Problems Name Problem SNOMED Code Status Onset Date Resolution Date Notes Provider Name and Address Organization Details Recorded Time Gastroesophage al reflux disease 029621527 Active 2022 KENNEY montoya PA - [facility] 3 16:12:05 Migraine 88408907 Active 2022 KENNEY montoya PA - [facility] 3 16:12:17 Chronic back pain 658681759 Active 2022 KENNEY montoya PA - [facility] 3 16:12:27 Problem Notes None recorded. Medical Equipment None Reported. Allergies No known drug allergies Medications Name Sig Start Date Stop Date Status Note LastModified by Organization Details LastModified Time cyclobenzapr ine 10 mg tablet TAKE 10 MG BY MOUTH AT BEDTIME NEEDED FOR MUSCLE SPASM. active Not Available Not Available No t Available trazodone 50 mg tablet active Not Available Not Available No t Available valacyclovir 1 gram tablet TAKE 2 TABLETS (2000MG) BY MOUTH EVERY 12 HOURS FOR 1 DAY. active Not Available Not Available No t Available penicillin V potassium 500 mg tablet Take 1 tablet twice a day by oral route for 10 days. 2022 active Not Available Not Available Not Avai lable acyclovir 400 mg tablet TAKE 1 TABLET BY MOUTH 3 TIMES DAILY FOR 5 DAYS. active Not Available Not Available No t Available tramadol 50 mg tablet TAKE 1 TABLET BY MOUTH ONCE DAILY 11/24 completed Not Available Not Available Not Available famotidine 20 mg tablet TAKE 1 TABLET BY MOUTH DAILY AT BEDTIME active Not Available Not Available No t Available rizatriptan 10 mg disintegrati ng tablet active Not Available Not Available No t Available doxycycline monohydrate 100 mg capsule TAKE 1 CAPSULE BY MOUTH TWICE DAILY 11/24 completed Not Available Not Available Not Available erythromycin 5 mg/gram (0.5 %) eye ointment APPLY 3 TIMES A DAY INTO LEFT EYE 11/24 completed Not Available Not Available Not Available sertraline 25 mg tablet active Not Available Not Available Not Available eletriptan 20 mg tablet active Not Available Not Available Not Available Vitals Date Recorded Body height Body mass index (BMI) Body weight Body temperature Respiratory rate Heart rate Oxygen saturation Oxygen saturation in Arterial blood by Pulse oximetry Systolic blood pressure Diastolic blood pressure Provider Name and Address Organization Details Last Updated DateTime 3 180.34 cm 37.1 kg/m2 381206. 57 g 97.2 [degF] 18 /min 78 /min 98 % 98 % 142 mm[Hg] 79 mm[Hg] KENNEY ANGULO [facility] 16:14:38 Social History Question Answer Notes LastModified by Fibras [place] ion Details LastModified Time Tobacco Smoking Status Never Smoker KENNEY montoya PA [facility] 11/24/2022 16:12:54 What Is Your Level Of Alcohol Consumption? Occasional Information not available 11/24/2022 How Many Times Per Week Do You Consume Alcohol? 3-4 Times Per Week Information not available 11/24/2022 Are You Currently Employed? Yes Information not available 11/24/2022 Have You Had Direct Contact, Or Contact During Intimacy, With Monkeypox Rash, Scabs, Or Body Fluids From A Person With Monkeypox? No Information not available 11/24/2022 Do You Use Any Illicit Or Recreational Drugs? No Information not available 11/24/2022 Have You Recently Traveled Abroad? No Information not available 11/24/2022 Are You Currently In School? No Information not available 11/24/2022 Sex: Unknown Functional Status None recorded. Mental Status None recorded. Family History Relationship Description Onset Age of this Age Resolved Age Notes LastModified by Organization Details LastModified Time Father No current problems or disability Not available 06/2023 16:12:29 Mother No current problems or disability Not available 06/2023 16:12:29 Medical History No medical history recorded. Immunizations Vaccine Type Date Status Note Provider Nam e and Address Organization Details Recorded Time Influenza, split virus, quadrivalent, PF 10/28/2022 completed KENNEY ANGULO null, PA - [facility] 11/24/2022 16:10:17 Influenza, MDCK, quadrivalent, PF 2021 completed KENNEY ANGULO null, PA - [facility] 11/24/2022 16:10:17 Tdap 09/17/2013 completed KENNEY ANGULO null, PA - [facility] 11/24/2022 16:10:17 COVID-19, mRNA, LNP-S, PF, 30 mcg/0.3 mL dose 08/16/2021 completed KENNEY ANGULO null, PA - [facility] 11/24/2022 16:10:17 COVID-19, mRNA, LNP-S, PF, 30 mcg/0.3 mL dose 07/26/2021 completed KENNEY ANGULO null, PA - [facility] 11/24/2022 16:10:17 Influenza, MDCK, quadrivalent, PF 01/05/2021 completed KENNEY ANGULO null, PA - [facility] 11/24/2022 16:10:17 Past Encounters Encounter ID Performer Location Encounter Start Date Encounter Closed Date Diagnosis/Indication Diagnosis SNOMED-CT Code Diagnosis ICD10 Code [id number] [address] [address] 05/01/2022 17:21:49 05/01/2022 17:50:42 [id number] [address] [address] 05/03/2020 09:55:42 05/03/2020 11:30:41 [id number] ZOHREH MONTIEL [address] [address] [place] [address] 11/24/2022 15:59:16 11/24/2022 16:57:03 Acute upper respiratory infection 16216003 J06.9 Sore throat 278594540 J0 2.9 Health Concerns Section Related Observation LastModified by Organization Detai ls LastModified Time None Recorded Concern Status LastModified by Organization Details LastModified Time None Recorded Advance Directives Directive None Recorded Payers Encounter Date Sequence Insurance Name Policy Number Policy Gloria Covered Member ID Gloria Member ID Guarantor Name 11/24/2022 [employer] - [facility] Thuan Nguyen [id number] Thuan Nguyen Notes Date Note Type Note Provider Name and Address Organization Details Recorded Time 11/24/2022 text/html Thuan is a 32 y o M here with headache since this morning, as well as a cough and sore throat x 4 days. + chills and body aches, no fevers. Wants to test for covid, flu and strep. No hx of frequent strep infections. + known exposure to strep to his . Daughter has similar symptoms and is waiting on her throat culture from paediatricians office as well. BLAYNE Wilcox, [facility] [address] [facility] [place], [address], [place] - [facility] 11/24/2022 16:48:47
--- OUTSIDE RECORDS SUMMARY | 2024-11-05 09:39 | XMS_ITS ---
Author Name [facility] Organization Unknown History of Medication Use Medication Directions Dispensed Refills Start Date End Date Stat Paxlovid 300 mg (150 mg x 2)-100 mg tablets in a dose pack TAKE 2 TABLETS (NIRMATRELVIR) AND TAKE 1 TABLET (RITONAVIR) BY MOUTH TWICE A DAY FOR 5 DAYS 10/30/2024 11/16/9999 active prednisone 20 mg tablet TAKE 2 TABLETS BY MOUTH ONCE DAILY FOR 5 DAYS 10/30/2024 11/16/9999 active erythromycin 5 mg/gram (0.5 %) eye ointment 10/30/2024 11/16/9999 acti ve acetaminophen 500 mg tablet TAKE 2 TABLETS BY MOUTH EVERY 6 HOURS NEEDED FOR FEVER 10/30/2024 11/16/9999 active amoxicillin 875 mg tablet TAKE 1 TABLET BY MOUTH TWICE A DAY 10/30/2024 11/16/9999 active amitriptyline 10 mg tablet TAKE 1 TO 2 TABLETS BY MOUTH EVERY DAY AT BEDTIME 10/30/2024 11/16/9999 active rizatriptan 10 mg tablet PLEASE SEE ATTACHED FOR DETAILED DIRECTIONS 10/30/2024 11/16/9999 active acyclovir 400 mg tablet TAKE 1 TABLET BY MOUTH 3 TIMES DAILY FOR 5 DAYS 10/30/2024 11/16/9999 active benzonatate 100 mg capsule TAKE 1 CAPSULE BY MOUTH THREE TIMES A DAY NEEDED FOR COUGH 10/30/2024 11/16/9999 active albuterol sulfate HFA 90 mcg/actuation aerosol inhaler INHALE 2 PUFFS EVERY 6 HOURS NEEDED FOR SHORTNESS OF BREATH OR WHEEZING 10/30/2024 11/16/9999 active Ubrelvy 100 mg tablet TAKE 1/2-1 TABLET ONCE NEEDED AT ONSET OF MIGRAINE. MAY REPEAT IN 2 HOURS UP TO MAX 2 TABS/DAY 10/30/2024 11/16/9999 active oseltamivir 75 mg capsule TAKE 1 CAPSULE BY MOUTH TWICE A DAY FOR 5 DAYS 10/30/2024 11/16/9999 active scopolamine 1 mg over 3 days transdermal patch APPLY 1 PATCH DIRECTED EVERY 3 DAYS NEEDED FOR MOTION SICKNESS 10/30/2024 11/16/9999 active azithromycin 250 mg tablet TAKE 2 TABLETS BY MOUTH TODAY, THEN TAKE 1 TABLET DAILY FOR 4 DAYS DIRECTED 10/30/2024 11/16/9999 active cyclobenzaprine 5 mg tablet TAKE 1 TABLET BY MOUTH EVERYDAY AT BEDTIME 10/30/2024 11/16/9999 active sertraline 25 mg tablet 10/30/2024 11/16/9999 active No known medications No known medications 07/05/2024 active Problems Problem Status Onset Date Problem Type Date of Resoluti on Source Foot sprain, left, initial encounter active EncounterDiagnosisAct C [facility] Left ankle sprain active EncounterDiagnosisAct CT[facility]
--- OUTSIDE RECORDS SUMMARY | 2024-11-05 09:39 | XMS_ITS ---
Author Organization [facility] Address [address] [address] Care Team Providers Care Regulatory Technician Name Role Phone Nena Ortiz Primary Care Provider [phone] Allergies No Known Allergies REASON FOR VISIT follow up Medications Medication SIG (Take, Route, Frequency, Duration) Notes Start Date End Date Status Rizatriptan Benzoate 10 MG PLEASE SEE AT TACHED FOR DETAILED DIRECTIONS Oral for 30 Days Active Ubrelvy 100 MG TAKE 1/2-1 TABLET ON CE NEEDED AT ONSET OF MIGRAINE. MAY REPEAT IN 2 HOURS UP TO MAX 2 TABS/DAY Oral for 30 Days Active Meloxicam 15 MG TAKE 1 TABLET BY AIDAN TH EVERY DAY Oral for 30 Days Active Oseltamivir Phosphate 75 MG TAKE 1 CAPSU LE BY MOUTH TWICE A DAY FOR 5 DAYS Oral for 5 Days Active Sertraline HCl 25 MG Oral for 60 Days Active Albuterol Sulfate HFA 108 (9 0 Base) MCG/ACT INHALE 2 PUFFS EVERY 6 HOURS NEEDED FOR SHORTNESS OF BREATH OR WHEEZING Inhalation for 20 Days Active Cyclobenzaprine HCl 5 MG TAKE 1 TABLET B Y MOUTH EVERYDAY AT BEDTIME Oral for 20 Days Active Social History Tobacco Use: Social History Observation Description Date Details (start date - stop date) Never Smoker NA - NA Tobacco Control (Standard) Question Answer Notes Tobacco use: Nonsmoker Problems Problem Type SNOMED Code ICD Code Onset Dates Problem Status W/U Status Risk Notes Problem [id number] Mild intermitten t asthma without complication (J45.20) Active confirmed Problem 31920834 Other migraine without status migrainosus, not intractable (G43.809) Active confirmed Problem Mood disorder (89065925) Mood disorder (F39) Active confirmed Vital Signs Heart Rate 80 /min 09/17/2024 Blood pressure systolic 140 mm Hg 09/17/20 24 Blood pressure diastolic 80 mm Hg 024 Height 71 in 09/17/2024 Weight 277 lbs 09/17/2024 BMI 38.63 kg/m2 09/17/2024 Respiratory Rate 15 /min 09/17/2024 Oximetry 98 % 09/17/2024 Encounters Encounter Location Date Provider Diagnosis [facility] [address] [facility] [address] [place] [address] 09/17/2024 Nena Ortiz Encounter for genera l adult medical examination with abnormal findings Z00.01 ; Hypertension, unspecified type I10 ; Left foot pain M79.672 and Other migraine without status migrainosus, not intractable G43.809 Assessments Encounter Date Diagnosis (ICD Code) Assessment Notes Treatment Notes Treatment Clinical Notes Section Notes 09/17/2024 Encounter for general adult medical examination with abnormal findings (ICD-10 - Z00.01) Healthy lifestyle discussed with patient, including diet, vitamin supplement, exercise, non-smoking, safe sexual practices and reduction of stress. Assessment and plan reviewed with patient. 09/17/2024 Hypertension, unspecified type (ICD-10 - I10) Patient's blood pressures are mildly elevated. Recommend to continue with same medication(s) at the present time, but will monitor closely and if persistently elevated > 140/90 p will call office . P will see cardiology next for baseline eval 09/17/2024 Left foot pain (ICD-10 - M79.672) continue w PT and podiatry evaluation for persistent pain Discussed the benefit of physical therapy in detail with the patient to decrease acute pain, inflammation and swelling and to increase strength and range of motion and muscle re-education. Physical therapy ordered P aware to go to ER if sx worsen P arron remain out of work to prevent further injury until seen by podiatry ortho Ibuprofen every 3-4 hours alternating with Tylenol 09/17/2024 Other migraine without status migrainosus, not intractable (ICD-10 - G43.809) Well controlled on current therapy, continue present regimen 09/17/2024 Other Weight loss recommended Plan Of Treatment Treatment Notes Assessment Notes Encounter for general adult medical examination with abnormal findings Healthy lifestyle discussed with patient , including diet, vitamin supplement, exercise, non-smoking, safe sexual practices and reduction of stress. Assessment and plan reviewed with patient. Hypertension, unspecified type Patient's blood pressures are mildly elevated. Recommend to continue with same medication(s) at the present time, but will monitor closely and if persistently elevated > 140/90 p will call office . P will see cardiology next for baseline eval Left foot pain continue w PT and podiatry evaluation for persistent pain Discussed the benefit of physical therapy in detail with the patient to decrease acute pain, inflammation and swelling and to increase strength and range of motion and muscle re-education. Physical therapy ordered P aware to go to ER if sx worsen P arron remain out of work to prevent further injury until seen by podiatry ortho Ibuprofen every 3-4 hours alternating with Tylenol Other migraine without statu s migrainosus, not intractable Well controlled on current therapy, continue present regimen Other Weight loss recommen ded Pending Test Test Name Order Date Urine Cytology 09/17/2024 IRON, TIBC AND FERRITIN PANEL 09/17/2024 LIPID PANEL WITH REFLEX TO DIRECT LDL COMPREHENSIVE METABOLIC PANEL 09/17/2024 CBC (H/H, RBC, INDICES, WBC, PLT) 2023 URINALYSIS, COMPLETE W/REFLEX TO CULTURE 09/17/2024 HEMOGLOBIN A1c 09/17/2024 VITAMIN B12 09/17/2024 TSH+FREE T4 09/17/2024 Next Appt Details Follow Up: 4 Weeks, Reason: Provider Name:Nena huston, 11/18/2024 10:00:00 AM, [address], [address], Progress Notes * TIFFANYFelicianoKorinaOB:1990 (34 yo M)Acc No.[id number]:09/17/2024 Progress Notes Patient:?Thuan ALLEN Provider:?Nena Ortiz MD :1990???Age:33 Y???Sex:Male Paxton e:09/17/2024 Address:[address] [place], [place] [id number] Subjective: * Chief Complaints: * ???Follow up * HPI: ???Constitutional:? 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 P denies LOC or other bodily injury' His left ankle was affected and ow has persistent pain lateral ankle that worsens with walking or direct pressure for shoes, P went to ER for eval 06/2024 and had X-ray for fracture and was dx w Left ankle sprain and placed on a splint. Pain is no better and p will see podiatry next and remain out of work in the meantime to prevent further injury P is getting PT 3 x a week and pain 5/10 constant. P denies previous trauma to ankle or surgery and otherwise considers himself healthy. ???Depression Screening:?PHQ-9?Little interest or pleasure in doing things?Not at all ?Feeling down, depressed, or hopeless?Not at all ?Trouble falling or staying asleep, or sleeping too much?Not at all ?Feeling tired or having little energy?Not at all ?Poor appetite or overeating?Not at all ?Feeling bad about yourself or that you are a failure, or have let yourself or your family down?Not at all ?Trouble concentrating on things, such as reading the newspaper or watching television?Not at all ?Moving or speaking so slowly that other people could have noticed; or the opposite, being so fidgety or restless that you have been moving around a lot more than usual?Not at all ?Thoughts that you would be better off or of hurting yourself in some way?Not at all ?Total Score?0 * ROS:?General/Constitutional:?Denies?Chills.?Denies?Fatigue.?Denies?Fever.?Ophthalmologic:?Denies?Blurred vision.?Respiratory:?Denies?Breathing pattern.?Denies?Chest pain.?Denies?Cough.?Denies?Hemoptysis.?Denies?Pain with inspiration.?Denies?Shortness of breath.?Denies?Shortness of breath at rest.?Denies?Shortness of breath with exertion.?Denies?Sputum production.?Denies?Wheezing.?Cardiovascular:?Denies?Chest pain.?Denies?Chest pain at rest.?Denies?Chest pain with exertion.?Denies?Claudication.?Denies?Cyanosis.?Denies?Difficulty laying flat.?Denies?Dizziness.?Denies?Dyspnea on exertion.?Denies?Fluid accumulation in the legs.?Denies?Irregular heartbeat.?Denies?Orthopnea.?Denies?Palpitations.?Denies?Shortness of breath.?Denies?Weakness.?Denies?Weight gain.?Gastrointestinal:?Denies?Abdominal pain.?Denies?Blood in stool.?Denies?Change in bowel habits.?Genitourinary:?Denies?Pain in lower back.?Musculoskeletal:?Denies?Painful joints.?Podiatric:?Admits?Achilles swelling,?that is moderate, [...] 1 TABLET BY MOUTH EVERY DAY Oral Medication List reviewed and reconciled with the patientTaking Cyclobenzaprine HCl 5 MG Tablet TAKE 1 [...] 1 TABLET BY MOUTH EVERY DAY Oral Medication List reviewed and reconciled with the patient * Allergies:?N.K.D.A.no[Allerg ies Verified] Objective: * Vitals:?HR:80/min, BP:140/80 mm Hg, Ht: 71 in, Wt:277lbs, BMI:38.63Index, RR:15/min, Oxygen sat %:98%, Ht-cm: 180.34, Wt-k.64. * Examination: ???General Examination: ?GENERAL APPEARANCE:?in no acute distress, well developed, well nourished.?HEAD:?normocephalic, atraumatic.?EYES:?pupils equal, round, reactive to light and accommodation.?EARS:?normal.?ORAL CAVITY:?mucosa moist.?THROAT:?clear.?NECK/THYROID:?neck supple, full range of motion, no cervical lymphadenopathy.?SKIN:?no suspicious lesions, warm and dry.?HEART:?no murmurs, regular rate and rhythm, S1, S2 normal.?LUNGS:?clear to auscultation bilaterally.?ABDOMEN:?normal, bowel sounds present, soft, nontender, nondistended.?MUSCULOSKELETAL:?cervical spine normal left ankle lateral area slightly tender to direct touch and mild swelling.?EXTREMITIES:?no clubbing, cyanosis, or edema.?PERIPHERAL PULSES:?2+ dorsalis pedis, 2+ posterior tibial.?NEUROLOGIC:?nonfocal, motor strength normal upper and lower extremities, sensory exam intact.?PODIATRIC:?left ankle swelling, mild tenderness lateral malleolus.? Assessment: * Assessment: 1.?Encounter for general paresh lt medical examination with abnormal findings - Z00.01 (Primary)???2.?Hypertension, unspecified type - I10???3.?Left foot pain - M79.672???4.?Other migraine without status migrainosus, not intractable - G43.809??? Plan: * Treatment: 2.?Hypertension, unspecified type? Notes: Patient's blood pressures are mildly elevated. Recommend to continue with same medication(s) at the present time, but will monitor closely and if persistently elevated > 140/90 p will call office . P will see cardiology next for baseline eval?? 3.?Left foot pain? Notes: continue w PT and podiatry evaluation for persistent pain Discussed the benefit of physical therapy in detail with the patient to decrease acute pain, inflammation and swelling and to increase strength and range of motion and muscle re-education. Physical therapy ordered P aware to go to ER if sx worsen P arron remain out of work to prevent further injury until seen by podiatry ortho Ibuprofen every 3-4 hours alternating with Tylenol?? 4.?Other migraine without st atus migrainosus, not intractable? Notes: Well controlled on current therapy, continue present regimen?? 5.?Others? Notes: Weight loss recommended?? 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 P denies LOC or other bodily injury' His left ankle was affected and ow has persistent pain lateral ankle that worsens with walking or direct pressure for shoes, P went to ER for eval 06/2024 and had X-ray for fracture and was dx w Left ankle sprain and placed on a splint. Pain is no better and p will see podiatry next and remain out of work in the meantime to prevent further injury P is getting PT 3 x a week and pain 5/10 constant. P denies previous trauma to ankle or surgery and otherwise considers himself healthy Depression Screening PHQ-9 Little inte rest or pleasure in doing things: Not at all Feeling down, depressed, or hopeless: No t at all Trouble falling or staying asleep, or sl eeping too much: Not at all Feeling tired or having little energy: N ot at all Poor appetite or overeating: Not at all Feeling bad about yourself o r that you are a failure, or have let yourself or your family down: Not at all Trouble concentrating on thi ngs, such as reading the newspaper or watching television: Not at all Moving or speaking so slowly that other people could have noticed; or the opposite, being so fidgety or restless that you have been moving around a lot more than usual: Not at all Thoughts that you would be b kemal off or of hurting yourself in some way: Not at all Total Score: 0 Examination Category Sub-Category Detail Notes Category Not es General Examination GENERAL APPEARANCE: in no ac burns paiute distress, well developed, well nourished HEAD: normocephalic, atrau matic EYES: pupils equal, round, reactive to light and accommodation EARS: normal THROAT: clear NECK/THYROID: neck supple, full ra nge of motion, no cervical lymphadenopathy HEART: no murmurs, regular rate and rhythm, S1, S2 normal LUNGS: clear to auscultatio n bilaterally ABDOMEN: normal, bowel sounds present, soft, nontender, nondistended NEUROLOGIC: nonfocal, motor stre ngth normal upper and lower extremities, sensory exam intact SKIN: no suspicious lesion s, warm and dry EXTREMITIES: no clubbing, cyanosi s, or edema PERIPHERAL PULSES: 2+ dorsalis pedis, 2 + posterior tibial MUSCULOSKELETAL: cervical spine viola l left ankle lateral area slightly tender to direct touch and mild swelling ORAL CAVITY: mucosa moist PODIATRIC: left ankle swelling, mild tenderness lateral malleolus
--- OUTSIDE RECORDS SUMMARY | 2024-11-05 09:39 | XMS_ITS ---
Author Organization [facility] Address [address] [address] Care Team Providers Care Truck Mechanic Apprentice Name Role Phone Nena Ortiz Primary Care Provider [phone] Medications Medication SIG (Take, Route, Frequency, Duration) Notes Start Date End Date Status Sertraline HCl 25 MG Oral for 60 Days Active Scopolamine 1 MG/3DAYS APPLY 1 PATCH DIRECTED EVERY 3 DAYS NEEDED FOR MOTION SICKNESS Transdermal for 30 Days Not-Taking Scopolamine 1 MG/3DAYS Transdermal for 3 0 Days Not-Taking Oseltamivir Phosphate 75 MG Oral for 5 Days Not-Taking Rizatriptan Benzoate 10 MG PLEASE SEE AT TACHED FOR DETAILED DIRECTIONS Oral for 30 Days Active Albuterol Sulfate HFA 108 (90 Base) MCG/ACT INHALE 2 PUFFS EVERY 6 HOURS NEEDED FOR SHORTNESS OF BREATH OR WHEEZING Inhalation for 20 Days Active Albuterol Sulfate HFA 108 (90 Base) MCG/ACT Inhalation for 20 Days Active Rizatriptan Benzoate 10 MG Oral for 30 Days Active Ubrelvy 100 MG TAKE 1/2-1 TABLET ON CE NEEDED AT ONSET OF MIGRAINE. MAY REPEAT IN 2 HOURS UP TO MAX 2 TABS/DAY Oral for 30 Days Active Ubrelvy 100 MG Oral for 30 Days Active Cyclobenzaprine HCl 5 MG Oral for 20 Days Active Cyclobenzaprine HCl 5 MG TAKE 1 TABLET B Y MOUTH EVERYDAY AT BEDTIME Oral for 20 Days Active Amoxicillin 875 MG TAKE 1 TABLET BY AIDAN TH TWICE A DAY Oral for 7 Days Not-Taking Oseltamivir Phosphate 75 MG TAKE 1 CAPSULE BY MOUTH TWICE A DAY FOR 5 DAYS Oral for 5 Days Active Oseltamivir Phosphate 75 MG Oral for 5 Days Not-Taking Oseltamivir Phosphate 75 MG Oral for 5 Days Not-Taking Oseltamivir Phosphate 75 MG Oral for 5 Days Active Oseltamivir Phosphate 75 MG Oral for 5 Days Active Vital Signs Heart Rate 100 /min 08/10/2024 Blood pressure systolic 142 mm Hg 09/24/20 24 Blood pressure diastolic 66 mm Hg 024 Height 71 in 08/10/2024 Weight 287 lbs 08/10/2024 BMI 40.02 kg/m2 08/10/2024 Injured left ankle, work rel ated Encounters Encounter Location Date Provider Diagnosis [facility] [address] [place] [address] 08/10/2024 Nnea Ortiz Plan Of Treatment Next Appt Details Provider Name:Nena huston, 11/18/2024 10:00:00 AM, [address], [place], [address], Progress Notes * Feliciano ALLENKorinaOB:1990 (33 yo M)Acc No.[id number]:08/10/2024 Patient:?Thuan ALLEN :1990???Age:33 Y???Sex:Male Address:[address] [place] [address], [place] [address] Subjective: * Chief Complaints: * ??? * Medical History:? * Surgical History:? * Hospitalization/Major Diagno stic Procedure:? * Medications:?TakingCyclobenz aprine HCl 5 MG Tablet Oral Cyclobenzaprine HCl 5 MG Tablet TAKE 1 TABLET BY MOUTH EVERYDAY AT BEDTIME Oral Albuterol Sulfate HFA 108 (90 Base) MCG/ACT Aerosol Solution INHALE 2 PUFFS EVERY 6 HOURS NEEDED FOR SHORTNESS OF BREATH OR WHEEZING Inhalation Albuterol Sulfate HFA 108 (90 Base) MCG/ACT Aerosol Solution Inhalation Ubrelvy 100 MG Tablet TAKE 1/2-1 TABLET ONCE NEEDED AT ONSET OF MIGRAINE. MAY REPEAT IN 2 HOURS UP TO MAX 2 TABS/DAY Oral Ubrelvy 100 MG Tablet Oral Rizatriptan Benzoate 10 MG Tablet Oral Rizatriptan Benzoate 10 MG Tablet PLEASE SEE ATTACHED FOR DETAILED DIRECTIONS Oral Sertraline HCl 25 MG Tablet Oral Oseltamivir Phosphate 75 MG Capsule Oral Oseltamivir Phosphate 75 MG Capsule Oral Oseltamivir Phosphate 75 MG Capsule TAKE 1 CAPSULE BY MOUTH TWICE A DAY FOR 5 DAYS Oral Taking Cyclobenzaprine HCl 5 MG Tablet Oral Taking Cyclobenzaprine HCl 5 MG Tablet TAKE 1 TABLET BY MOUTH EVERYDAY AT BEDTIME Oral Taking Albuterol Sulfate HFA 108 (90 Base) MCG/ACT Aerosol Solution INHALE 2 PUFFS EVERY 6 HOURS NEEDED FOR SHORTNESS OF BREATH OR WHEEZING Inhalation Taking Albuterol Sulfate HFA 108 (90 Base) MCG/ACT Aerosol Solution Inhalation Taking Ubrelvy 100 MG Tablet TAKE 1/2-1 TABLET ONCE NEEDED AT ONSET OF MIGRAINE. MAY REPEAT IN 2 HOURS UP TO MAX 2 TABS/DAY Oral Taking Ubrelvy 100 MG Tablet Oral Taking Rizatriptan Benzoate 10 MG Tablet Oral Taking Rizatriptan Benzoate 10 MG Tablet PLEASE SEE ATTACHED FOR DETAILED DIRECTIONS Oral Taking Sertraline HCl 25 MG Tablet Oral Taking Oseltamivir Phosphate 75 MG Capsule Oral Taking Oseltamivir Phosphate 75 MG Capsule Oral Taking Oseltamivir Phosphate 75 MG Capsule TAKE 1 CAPSULE BY MOUTH TWICE A DAY FOR 5 DAYS Oral Not-Taking/PRNScopolamine 1 MG/3DAYS Patch 72 Hour APPLY 1 PATCH DIRECTED EVERY 3 DAYS NEEDED FOR MOTION SICKNESS Transdermal Scopolamine 1 MG/3DAYS Patch 72 Hour Transdermal Oseltamivir Phosphate 75 MG Capsule Oral Oseltamivir Phosphate 75 MG Capsule Oral Oseltamivir Phosphate 75 MG Capsule Oral Amoxicillin 875 MG Tablet TAKE 1 TABLET BY MOUTH TWICE A DAY Oral Not-Taking/PRN Scopolamine 1 MG/3DAYS Patch 72 Hour APPLY 1 PATCH DIRECTED EVERY 3 DAYS NEEDED FOR MOTION SICKNESS Transdermal Not-Taking/PRN Scopolamine 1 MG/3DAYS Patch 72 Hour Transdermal Not-Taking/PRN Oseltamivir Phosphate 75 MG Capsule Oral Not-Taking/PRN Oseltamivir Phosphate 75 MG Capsule Oral Not-Taking/PRN Oseltamivir Phosphate 75 MG Capsule Oral Not- Taking/PRN Amoxicillin 875 MG Tablet TAKE 1 TABLET BY MOUTH TWICE A DAY Oral Objective: * Vitals:?HR:100/min, BP:142/6 6mm Hg, Ht: 71 in, Wt:287lbs, BMI:40.02Index, Ht-cm: 180.34, Wt-k.18. Injured left ankle, work related. * Physical Examination:? Assessment: Plan: * Treatment: * Procedure Codes:? * true * Date:? Generated for Faizan lundberg/Barbra/aTpan on:?11/05/2024 09:38 AM EST
--- OUTSIDE RECORDS SUMMARY | 2024-11-05 09:39 | XMS_ITS | Patient Health Record ---
Author Organization [facility] Address [address] [address] Care Team Providers Care Drier Tender Name Role Phone Nena Ortiz Primary Care Provider Allergies No Known Allergies Reason For Referral No Information Medications Medication SIG (Take, Route, Frequency, Duration) Notes Start Date End Date Status Albuterol Sulfate HFA 108 (9 0 Base) MCG/ACT INHALE 2 PUFFS EVERY 6 HOURS NEEDED FOR SHORTNESS OF BREATH OR WHEEZING Inhalation for 20 Days Active Cyclobenzaprine HCl 5 MG TAKE 1 TABLET B Y MOUTH EVERYDAY AT BEDTIME Oral for 20 Days Active Rizatriptan Benzoate 10 MG PLEASE SEE AT TACHED FOR DETAILED DIRECTIONS Oral for 30 Days Active Ubrelvy 100 MG TAKE 1/2-1 TABLET ON CE NEEDED AT ONSET OF MIGRAINE. MAY REPEAT IN 2 HOURS UP TO MAX 2 TABS/DAY Oral for 30 Days Active Oseltamivir Phosphate 75 MG TAKE 1 CAPSU LE BY MOUTH TWICE A DAY FOR 5 DAYS Oral for 5 Days Active Sertraline HCl 25 MG Oral for 60 Days Active Meloxicam 15 MG TAKE 1 TABLET BY AIDAN TH EVERY DAY Oral for 30 Days Active Social History Tobacco Use: Social History Observation Description Date Details (start date - stop date) Never Smoker NA - NA Tobacco Control (Standard) Question Answer Notes Tobacco use: Nonsmoker Problems Problem Type SNOMED Code ICD Code Onset Dates Problem Status W/U Status Risk Notes Problem 24559778 Vitamin D deficiency (E55.9) Active confirmed Problem Mood disorder (74375860) Mood disorder (F39) Active confirmed Problem 444315097 Mild intermitten t asthma without complication (J45.20) Active confirmed Problem 24292885 Hypertension, unspecified type (I10) Active confirmed Problem 41868214 Other migraine without status migrainosus, not intractable (G43.809) Active confirmed Vital Signs Heart Rate 70 /min 10/15/2024 Respiratory Rate 15 /min 09/17/2024 Oximetry 98 % 09/17/2024 Blood pressure diastolic 80 mm Hg 10/15/2024 Height 71 in 10/15/2024 Blood pressure systolic 140 mm Hg 10/15/2024 Weight 277 lbs 10/15/2024 BMI 38.63 kg/m2 10/15/2024 Procedures Procedure Date Ordered Date Performed Result Body Sit e Physical Therapy- Evaluate and Treat 08/10/2024 N/A Encounters Encounter Location Date Provider Diagnosis [facility] [address] [place], [place] [address]/10/2024 Nena Ortiz Hypertension, unspecified type I10 [facility] [address] [place] [address]/17/2024 Nena Ortiz Encounter for genera l adult medical examination with abnormal findings Z00.01 ; Hypertension, unspecified type I10 ; Left foot pain M79.672 and Other migraine without status migrainosus, not intractable G43.809 [facility] [address] [place], [place] [id number] 10/15/2024 Nena Ortiz Left foot pain M79.672 and Left lateral ankle pain M25.572 [facility] [address] [place], [place] [address]/10/2024 [facility] [address] [place] [address] 08/10/2024 Nena Ortiz Assessments Encounter Date Diagnosis (ICD Code) Assessment Notes Treatment Notes Treatment Clinical Notes Section Notes 08/10/2024 Hypertension, unspecified type (ICD-10 - I10) Patient's blood pressures are mildly elevated. Recommend to continue with same medication(s) at the present time, but will monitor closely and if persistently elevated I will further increase the medication(s). Weight loss recommended 09/17/2024 Encounter for general adult medical examination [...] will see cardiology next for baseline eval 10/15/2024 Left foot pain (ICD-10 - M79.672) will proceed w MRI with prtho for further recd . Remaisn out of work to prevent permanent injury 10/15/2024 Left lateral ankle pain (ICD-10 - M25.572) 09/17/2024 Left foot pain (ICD-10 - M79.672) [...] Other Weight loss recommended Plan Of Treatment Pending Test Test Name Order Date Urine Cytology 09/17/2024 Urine Cytology 10/15/2024 IRON, TIBC AND FERRITIN PANEL 10/15/2024 IRON, TIBC AND FERRITIN PANEL 09/17/2024 LIPID PANEL WITH REFLEX TO DIRECT LDL LIPID PANEL WITH REFLEX TO DIRECT LDL COMPREHENSIVE METABOLIC PANEL 10/15/2024 COMPREHENSIVE METABOLIC PANEL 09/17/2024 CBC (H/H, RBC, INDICES, WBC, PLT) 2023 CBC (H/H, RBC, INDICES, WBC, PLT) 2023 URINALYSIS, COMPLETE W/REFLEX TO CULTURE 10/15/2024 URINALYSIS, COMPLETE W/REFLEX TO CULTURE 09/17/2024 C-REACTIVE PROTEIN 10/15/2024 HEMOGLOBIN A1c 10/15/2024 HEMOGLOBIN A1c 09/17/2024 VITAMIN B12 09/17/2024 VITAMIN B12 10/15/2024 VITAMIN D, 1,25 DIHYDROXY LC/MS/MS 10/15 Physical Therapy- Evaluate and Treat TSH+FREE T4 09/17/2024 TSH+FREE T4 10/15/2024 Next Appt Details Provider Name:Nena huston, 11/18/2024 10:00:00 AM, [address], [address], [place], [address], Insurance Providers Payer Name Payer Address Payer Phone Subscriber Number Group Number Insured Name Patient Relationship to Insured Coverage Start Date Coverage End Date [facility] and [employer] [address] [place] [address] [phone] [id number] Thuan Nguyen Self - patient is the insured Medical (General) History Medical History History ICD Code Mild intermittent asthma without complic ation J45.20 Other migraine without status migrainosu s, not intractable G43.809 Mood disorder F39
== END 2024-11-05 10:43 | disposition home or self-care (01) ==
PROVIDERS: PCP Internal Medicine; Visit Provider Nurse Practitioner Family
DX: G43.119 Migraine with aura, intractable, without status migrainosus (principal); G47.33 Obstructive sleep apnea (adult) (pediatric)
CPT/HCPCS: 99214

== ENCOUNTER 2024-11-08 13:28 | Outpatient (AMB) | payer BC, SELFPAY ==
--- OUTSIDE RECORDS SUMMARY | 2024-11-08 13:32 | XMS_ITS | Continuity of Care Document ---
Author Name [facility] Organization [facility] Care Team Providers Care Training And Development Director Name Role Phone [facility] Unavailable Unavailable Problems [...] [facility] Chronic Post-Traumatic Stress Disorder ([facility] [id number]) Active Condition Oct 13, 2023 Entered By: MIGUELITO GABRIEL Comment: reviewed [facility] Comanagement Active Condition Dec 01, 2022 Entered By: RUTHIE ESTEBAN Comment: Belén Knight [facility] Exposure to potentially hazardous substance Active Condition Dec 15, 2022 Entered By: JANEY RODRIGEZ Comment: [facility] (631GE) History of [facility] Active Condition [facility] Major depressive disorder Active Condition Jan 25, 2021 Entered By: MIGUELITO GABRIEL Comment: reviewedAug 20, 2021 Entered By: MIGUELITO GABRIEL Comment: reviewedOct 13, 2023 Entered By: MIGUELITO GABRIEL Comment: reviewed [facility] Migraine Active Condition Jul 25 Entered By: RUTHIE ESTEBAN Comment: followed by Dr. Vo [facility] Sleep apnea Active Condition Sep 09, 2022 Entered By: RUTHIE ESTEBAN Comment: unable to tolerate PAP therapy [facility] Affective disorder Inactive Condition 10/13/2023 [facility] Chronic post-traumatic stress disorder Inactive Condition 08/20/2021 LAKESHAKatie GARZA Diagnosis: ICD-10-CM G47.33 Obstructive sleep apnea (adult) (pediatric) Active Diagnosis [facility] Diagnosis: ICD-10-CM K03.6 Deposits [accretions] on teeth Active Diagnosis [facility] Diagnosis: ICD-10-CM F43.12 Post-traumatic stress disorder, chronic Active Diagnosis [facility] Diagnosis: ICD-10-CM M54.59 Other low back pain Active Diagnosis [place] Diagnosis: ICD-10-CM G47.30 Sleep apnea, unspecified Active Diagnosis [place] [facility] [place] [facility] Medications Combined list of outpatient medications [...] AT BEDTIME ORAL ACTIVE Guy GABRIEL 2023 [place] AMOXICILLIN 500 MG ORAL CAP TAKE ONE CAPSULE BY MOUTH TWICE DAILY 10/17/2023 [id number] GLORIA ESTEBAN O C 2022 20 [facility] AMOXICILLIN TRIHYDRATE 500MG CAP TAKE ONE CAPSULE BY MOUTH TWICE DAILY ORAL 10/17/2023 [id number] GLORIA ESTEBAN O 2022 20 [place] sertraline (U/D) 25 MG ORAL TAB TAKE ONE TABLET BY MOUTH ONCE DAILY FOR MOOD 10/13/2024 [id number] 4 MIGUELITO GABRIEL 2023 60 [facility] sertraline (U/D) 25 MG ORAL TAB TAKE ONE TABLET BY MOUTH ONCE DAILY FOR POSTTRAU MATIC STRESS SYNDROME FOR MOOD Discont inued 01/24/2024 [id number] 3 MIGUELITO GABRIEL 2022 60 [facility] SERTRALINE HCL 25MG TAB TAKE ONE TABLET BY MOUTH ONCE DAILY FOR POSTTRAU MATIC STRESS SYNDROME ORAL SUSPEND ED 08/06/2025 [id number] 5 Guy GABRIEL 2023 60 [place] SERTRALINE HCL 25MG TAB TAKE ONE TABLET BY MOUTH ONCE DAILY FOR MOOD ORAL DISCONT INUED 10/13/2024 [id number] 4 Guy GABRIEL 2022 60 [place] SERTRALINE HCL 25MG TAB TAKE ONE TABLET BY MOUTH ONCE DAILY FOR POSTTRAU MATIC STRESS SYNDROME FOR MOOD ORAL DISCONT INUED (EDIT) 01/24/2024 [id number] 3 Guy GABRIEL 2022 60 [place] SODIUM FLUORIDE 1.1% TOOTHPASTE BRUSH SMALL AMOUNT TO TEETH TWICE DAILY FOR TOOTH DECAY PREVENTI ON DENTAL ACTIVE 10/12/2025 [id number] 4 Geraldine KEYES 2023 51 [facility] UBROGEPANT TAB [...] Site Reaction Lot Number CVX Code Drug [employer] Installer Status Comments Source influenza, injectable, quadrivalent, contains preservative 1 2018 [id number] [employer] (SEQ) complet ed influenza , injectabl e, quadrival ent, contains preservat vaughn DoD anthrax vaccine 1 2018 [id number] [employer] [place] ([facility]) complet ed anthrax vaccine DoD typhoid Vi capsular polysaccharid e vaccine 1 2018 [id number] Sanofi Pasteur (PMC) complet ed typhoid Vi capsular polysacch aride vaccine DoD Influenza, seasonal, injectable, preservative free 1 2017 [id number] [employer] (SEQ) comple t ed Influenza , seasonal, injectabl e, preservat vaughn free DoD Influenza, injectable, quadrivalent, preservative free 1 2017 UNK 150 Unknown (UNK) comple t ed Influenza , injectabl e, quadrival ent, preservat vaughn free DoD Influenza, seasonal, injectable, preservative free 1 2016 [id number] 140 Unknown (UNK) comple t ed Influenza , seasonal, injectabl e, preservat vaughn free DoD Influenza, seasonal, injectable, preservative free 1 2015 [id number] 140 Other (OTH) complet ed Influenza , seasonal, injectabl e, preservat vaughn free DoD Influenza, seasonal, injectable, preservative free 1 2014 [id number] 140 Other (OTH) complet ed Influenza , seasonal, injectabl e, preservat vaughn free DoD hepatitis B vaccine, adult dosage 3 2013 [id number] 43 Other (OTH) complet ed hepatitis B vaccine, adult dosage DoD hepatitis A vaccine, adult dosage 3 2013 [id number] 52 Other (OTH) complet ed hepatitis A vaccine, adult dosage DoD Influenza, seasonal, injectable, preservative free 1 2013 [id number] 140 [facility] ([facility]) complet ed Influenza , seasonal, injectabl e, preservat vaughn free DoD hepatitis A and hepatitis B vaccine 2 2012 [id number] 104 [facility] ([facility]) complet ed hepatitis A and hepatitis B vaccine DoD measles, mumps and rubella virus vaccine 1 2012 UNK 03 Unknown (UNK) Not Given measles, mumps and rubella virus vaccine DoD varicella virus vaccine 1 2012 UNK 21 Unknown (UNK) Not Given varicella virus vaccine DoD hepatitis A and hepatitis B vaccine 1 2012 [id number] 104 [facility] (B) complet ed hepatitis A and hepatitis B vaccine DoD Adenovirus, type 4 and type 7, live, oral 1 2012 [id number] 143 [facility] ([facility]) complet ed Adenoviru s, type 4 and type 7, live, oral DoD influenza, live, intranasal, quadrivalent 1 2012 [id number] 149 [employer] (CSL) complet ed influenza , live, intranasa l, quadrival ent DoD poliovirus vaccine, inactivated 1 2012 [id number] 10 Sanofi Pasteur (PMC) complet ed polioviru s vaccine, inactivat ed DoD meningococcal polysaccharid e (groups A, C, Y and W-135) diphtheria toxoid conjugate vaccine (MCV4P) 1 2012 [id number] 114 [facility] meningoco ccal polysacch aride (groups A, C, Y and W-135) diphtheri a toxoid conjugate vaccine (MCV4P) DoD tetanus toxoid, reduced diphtheria toxoid, and acellular pertu is vaccine, adsorbed 1 2012 [id number] 115 Sanofi Pasteur (PMC) complet ed tetanus toxoid, reduced diphtheri a [...] Sep 17, 2023 11:53 AM Reporting Lab: [facility] [address] [address] Performing Lab: [address] [address] [facility] LIPID PANEL FASTING CHOLESTERO L [MASS/VOLU ME] IN SERUM OR PLASMA 168 mg/dL 09/17 Specimen Type: SERUM No comment entered. Ordering Provider: JOSHUA ESTEBAN Report Released Date/Time: March 19, 2023 04:54 PM Reporting Lab: [address] [address] Performing Lab: [facility] [address] [facility] LIPID PANEL FASTING TRIGLYCERI DE [MASS/VOLU ME] IN SERUM OR PLASMA 185 mg/dL 0 - 150 09/17 H Specimen Type: SERUM No comment entered. Ordering Provider: JOSHUA ESTEBAN Report Released Date/Time: March 19, 2023 04:54 PM Reporting Lab: [facility] [address] Performing Lab: [facility] [address] [facility] LIPID PANEL FASTING CHOLESTERO L IN LDL [MASS/VOLU ME] IN SERUM OR PLASMA BY MABEL Birch 91 mg/dL 0 - 129 09/17 Specimen Type: SERUM No comment entered. Ordering Provider: JOSHUA ESTEBAN Report Released Date/Time: March 19, 2023 04:54 PM Reporting Lab: [facility] [place] [facility] [address] [address] Performing Lab: [place] [facility] [place] [facility] [address] [address] [place] [facility] [place] [facility] LIPID PANEL FASTING CHOLESTERO L.TOTAL/CH OLESTEROL IN HDL [MASS RATIO] IN SERUM OR PLASMA 4.2 09/17 Specimen Type: SERUM No comment entered. Ordering Provider: JOSHUA ESTEBAN Report Released Date/Time: March 19, 2023 04:54 PM Reporting Lab: [facility] [place] [address] [address] Performing Lab: [place] [facility] [place] [address] [address] [facility] [place] [place] [facility] LIPID PANEL FASTING CHOLESTERO L IN HDL [MASS/VOLU ME] IN SERUM OR PLASMA 40 mg/dL 40 - 60 09/17 Specimen Type: SERUM No comment entered. Ordering Provider: JOSHUA ESTEBAN Report Released Date/Time: March 19, 2023 04:54 PM Reporting Lab: [place] [facility] [place] [address] [address] Performing Lab: [place] [facility] [place] [facility] [address] [address] [facility] LIVER FUNCTION PROTEIN [MASS/VOLU ME] IN SERUM OR PLASMA 7.5 g/dL 6.0 - 8.3 09/17 Specimen Type: SERUM No comment entered. Ordering Provider: JOSHUA ESTEBAN Report Released Date/Time: March 19, 2023 04:54 PM Reporting Lab: [place] [facility] [place] [address] [address] Performing Lab: [place] [facility] [place] [facility] [address] [address] [facility] [place] [place] [facility] LIVER FUNCTION ALBUMIN [MASS/VOLU ME] IN SERUM OR PLASMA 4.3 g/dL 3.5 - 5.0 09/17 Specimen Type: SERUM No comment entered. Ordering Provider: JOSHUA ESTEBAN Report Released Date/Time: March 19, 2023 04:54 PM Reporting Lab: [place] [facility] [place] [facility] [address] [address] Performing Lab: [place] [facility] [place] [facility] [address] [address] [facility] [place] [place] [facility] LIVER FUNCTION ALKALINE PHOSPHATAS E [ENZYMATIC ACTIVITY/V OLUME] IN SERUM OR PLASMA 49 U/L 40 - 150 09/17 Specimen Type: SERUM No comment entered. Ordering Provider: JOSHUA ESTEBAN Report Released Date/Time: March 19, 2023 04:54 PM Reporting Lab: [place] [facility] [facility] [address] [address] Performing Lab: [place] [facility] [facility] [address] [address] [facility] [place] [facility] LIVER FUNCTION ASPARTATE AMINOTRANS FERASE [ENZYMATIC ACTIVITY/V OLUME] IN SERUM OR PLASMA 19 U/L 5 - 34 09/17 Specimen Type: SERUM No comment entered. Ordering Provider: JOSHUA ESTEBAN Report Released Date/Time: March 19, 2023 04:54 PM Reporting Lab: [facility] [place] [facility] [address] [address] Performing Lab: [place] [address] [address] [facility] [place] [facility] LIVER FUNCTION ALANINE AMINOTRANS FERASE [ENZYMATIC ACTIVITY/V OLUME] IN SERUM OR PLASMA 30 U/L 09/17 Specimen Type: SERUM No comment entered. Ordering Provider: JOSHUA ESTEBAN Report Released Date/Time: March 19, 2023 04:54 PM Reporting Lab: [facility] [place] [facility] [address] [address] Performing Lab: [place] [facility] [address] [address] [facility] [place] [place] [facility] LIVER FUNCTION BILIRUBIN. TOTAL [MASS/VOLU ME] IN SERUM OR PLASMA 0.8 mg/dL 0.2 - 1.2 09/17 Specimen Type: SERUM No comment entered. Ordering Provider: JOSHUA ESTEBAN Report Released Date/Time: March 19, 2023 04:54 PM Reporting Lab: [facility]N [facility] [address] [address] Performing Lab: [facility] TRN [facility]ENTERUSETS [address] [address] [facility] BASIC METABOLI C PANEL (fasting ) UREA NITROGEN [MASS/VOLU ME] IN SERUM OR PLASMA 13 mg/dL 7 - 25 09/17 Specimen Type: SERUM No comment entered. Ordering Provider: JOSHUA ESTEBAN Report Released Date/Time: March 19, 2023 04:54 PM Reporting Lab: [facility]ITALRST. [facility]INCENT[facility]ASTTRN [facility]ENTERUSETS [address] [address] Performing Lab: [facility]RL [facility] [address] [address] [facility] BASIC METABOLI C PANEL (fasting ) GLUCOSE [MASS/VOLU ME] IN SERUM OR PLASMA 92 mg/dL 65 - 100 09/17 Specimen Type: SERUM No comment entered. Ordering Provider: JOSHUA ESTEBAN Report Released Date/Time: March 19, 2023 04:54 PM Reporting Lab: [facility] [place] [place] [facility] [address] [address] Performing Lab: [facility] TRN [facility]ENTERUS[facility] [address] [address] [facility]ITALRPRINCETON BAP[facility] CENTERN [facility]ENTERUSE [facility] BASIC METABOLI C PANEL (fasting ) SODIUM [MOLES/VOL UME] IN SERUM OR PLASMA 139 mmol/L 135 - 145 09/17 Specimen Type: SERUM No comment entered. Ordering Provider: JOSHUA ESTEBAN Report Released Date/Time: March 19, 2023 04:54 PM Reporting Lab: [facility] [place] [facility] [address] [address] Performing Lab: [facility] [place] [facility] [address] [address] [facility] [place] [facility] BASIC METABOLI C PANEL (fasting ) POTASSIUM [MOLES/VOL UME] IN SERUM OR PLASMA 4.2 mmol/L 3.5 - 5.0 09/17 Specimen Type: SERUM No comment entered. Ordering Provider: JOSHUA ESTEBAN Report Released Date/Time: March 19, 2023 04:54 PM Reporting Lab: [facility] [place] [address] [address] Performing Lab: [place] [address] [address] [place] [facility] [facility] BASIC METABOLI C PANEL (fasting ) CHLORIDE [MOLES/VOL UME] IN SERUM OR PLASMA 105 mmol/L 100 - 110 09/17 Specimen Type: SERUM No comment entered. Ordering Provider: JOSHUA ESTEBAN Report Released Date/Time: March 19, 2023 04:54 PM Reporting Lab: [facility] [place] [address] [address] Performing Lab: [facility] [place] [address] [address] [facility] [place] [facility] BASIC METABOLI C PANEL (fasting ) CARBON DIOXIDE, TOTAL [MOLES/VOL UME] IN SERUM OR PLASMA 26 meq/L 20 - 30 09/17 Specimen Type: SERUM No comment entered. Ordering Provider: JOSHUA ESTEBAN Report Released Date/Time: March 19, 2023 04:54 PM Reporting Lab: [facility] [place] [address] [address] Performing Lab: [facility] [place] [address] [address] [facility] [place] [facility] BASIC METABOLI C PANEL (fasting ) CREATININE [MASS/VOLU ME] IN SERUM OR PLASMA 1.11 mg/dL 0.50 - 1.40 09/17 Specimen Type: SERUM No comment entered. Ordering Provider: JOSHUA ESTEBAN Report Released Date/Time: March 19, 2023 04:54 PM Reporting Lab: [facility]ITALRST. [facility] EASTTRN [place] [address] Performing Lab: [facility]ITALRL WSTRN [facility]ENTERUSEUPSTATE [facility] [address] [address] [facility]ENTER[facility] BASIC METABOLI C PANEL (fasting ) GLOMERULAR FILTRATION RATE/1.73 SQ M.PREDICTE D [VOLUME RATE/AREA] IN SERUM, PLASMA OR BLOOD BY CREATININE -BASED FORMULA (CKD-EPI 2020) 90 mL/min 60 09/17 Specimen Type: SERUM No comment entered. Ordering Provider: JOSHUA ESTEBAN Report Released Date/Time: March 19, 2023 04:54 PM Reporting Lab: [facility]RL TRN [address] [address] Performing Lab: [facility]RL TRN [facility]ENTERUSE[address] [address] [facility]ENTERUSE [facility] HEMOGLOB IN A1C PANEL HEMOGLOBIN A1C/HEMOGL OBIN.TOTAL [...] March 19, 2023 04:54 PM Reporting Lab: [facility] [address] [address] Performing Lab: [address] [address] [facility] [place] [facility] TSH THYROTROPI N [UNITS/VOL UME] IN SERUM OR PLASMA 2.26 u[IU]/mL 0.35 - 5.00 09/17 Specimen Type: SERUM No comment entered. Ordering Provider: JOSHUA ESTEBAN Report Released Date/Time: March 19, 2023 04:54 PM Reporting Lab: [place] [facility] [address] [address] Performing Lab: [facility] [place] [facility] [address] [address] [place] [facility] [place] [facility] CBC AND DIFF (AUTO) LEUKOCYTES [#/VOLUME] IN BLOOD BY AUTOMATED COUNT 11.72 10*3/uL 4.50 - 11.00 09/17 H Specimen Type: BLOOD No comment entered. Ordering Provider: JOSHUA ESTEBAN Report Released Date/Time: March 19, 2023 04:54 PM Reporting Lab: [place] [facility] [address] [address] Performing Lab: [place] [facility] [address] [address] [facility] [place] [place] [facility] CBC AND DIFF (AUTO) ERYTHROCYT ES [#/VOLUME] IN BLOOD BY AUTOMATED COUNT 5.54 10*6/uL 4.23 - 5.66 09/17 Specimen Type: BLOOD No comment entered. Ordering Provider: JOSHUA ESTEBAN Report Released Date/Time: March 19, 2023 04:54 PM Reporting Lab: [place] [facility] [address] [address] Performing Lab: [place] [facility] [address] [address] [facility] [place] [facility] CBC AND DIFF (AUTO) HEMOGLOBIN [MASS/VOLU ME] IN BLOOD 14.9 g/dL 12.8 - 17 09/17 Specimen Type: BLOOD No comment entered. Ordering Provider: JOSHUA ESTEBAN Report Released Date/Time: March 19, 2023 04:54 PM Reporting Lab: [facility] [place] [facility] [address] [address] Performing Lab: [place] [facility] [address] [address] [facility] [place] [place] [facility] CBC AND DIFF (AUTO) HEMATOCRIT [VOLUME FRACTION] OF BLOOD BY AUTOMATED COUNT 45.1 39.2 - 50.4 09/17 Specimen Type: BLOOD No comment entered. Ordering Provider: JOSHUA ESTEBAN Report Released Date/Time: March 19, 2023 04:54 PM Reporting Lab: [place] [facility] [address] [address] Performing Lab: [place] [facility] [address] [address] [facility] [place] [facility] CBC AND DIFF (AUTO) MCV [ENTITIC VOLUME] BY AUTOMATED COUNT 81.4 fL 82 - 99 09/17 L Specimen Type: BLOOD No comment entered. Ordering Provider: JOSHUA ESTEBAN Report Released Date/Time: March 19, 2023 04:54 PM Reporting Lab: [facility] [place] [place] [facility] [address] [address] Performing Lab: [place] [facility] [address] [address] [facility] [place] [facility] CBC AND DIFF (AUTO) MCHC [MASS/VOLU ME] BY AUTOMATED COUNT 33.0 g/dL 30.8 - 35.1 09/17 Specimen Type: BLOOD No comment entered. Ordering Provider: JOSHUA ESTEBAN Report Released Date/Time: March 19, 2023 04:54 PM Reporting Lab: [facility] [place] [facility] [address] [address] Performing Lab: [place] [address] [address] [facility]RL [facility] CBC AND DIFF (AUTO) PLATELETS [#/VOLUME] IN BLOOD BY AUTOMATED COUNT 294 10*3/uL 140 - 360 09/17 Specimen Type: BLOOD No comment entered. Ordering Provider: JOSHUA ESTEBAN Report Released Date/Time: March 19, 2023 04:54 PM Reporting Lab: [facility] [place] [place] [facility] [address] [address] Performing Lab: [facility] [place] [facility] [address] [address] [facility] [place] [facility] CBC AND DIFF (AUTO) ERYTHROCYT E DISTRIBUTI ON WIDTH [RATIO] BY AUTOMATED COUNT 13.9 12.0 - 16.0 09/17 Specimen Type: BLOOD No comment entered. Ordering Provider: JOSHUA ESTEBAN Report Released Date/Time: March 19, 2023 04:54 PM Reporting Lab: [facility] [place] [facility] [address] [address] Performing Lab: [facility] [place] [facility] [address] [address] [facility] [place] [facility] CBC AND DIFF (AUTO) MONOCYTES [#/VOLUME] IN BLOOD BY AUTOMATED COUNT 0.96 10*3/uL 0.30 - 1.10 09/17 Specimen Type: BLOOD No comment entered. Ordering Provider: JOSHUA ESTEBAN Report Released Date/Time: March 19, 2023 04:54 PM Reporting Lab: [facility] [place] [facility] [address] [address] Performing Lab: [facility] [place] [facility] [address] [address] [facility] [place] [facility] CBC AND DIFF (AUTO) MCH [ENTITIC MASS] BY AUTOMATED COUNT 26.9 pg 26.2 - 32.6 09/17 Specimen Type: BLOOD No comment entered. Ordering Provider: JOSHUA ESTEBAN Report Released Date/Time: March 19, 2023 04:54 PM Reporting Lab: [facility] [place] [facility] [address] [address] Performing Lab: [facility] [place] [facility] [address] [address] [facility] [place] [facility] CBC AND DIFF (AUTO) NEUTROPHIL S/100 LEUKOCYTES IN BLOOD BY AUTOMATED COUNT 76.1 43.7 - 75.8 09/17 H Specimen Type: BLOOD No comment entered. Ordering Provider: JOSHUA ESTEBAN Report Released Date/Time: March 19, 2023 04:54 PM Reporting Lab: [facility] [place] [place] [facility] [address] [address] Performing Lab: [facility] [place] [facility] [address] [place] [address] [facility] [place] [facility] CBC AND DIFF (AUTO) LYMPHOCYTE S/100 LEUKOCYTES IN BLOOD BY AUTOMATED COUNT 13.8 14.0 - 42.3 09/17 L Specimen Type: BLOOD No comment entered. Ordering Provider: JOSHUA ESTEBAN Report Released Date/Time: March 19, 2023 04:54 PM Reporting Lab: [facility] [address] [place] [phone] Performing Lab: [facility] [address] [place] [phone] [facility] CBC AND DIFF (AUTO) MONOCYTES/ 100 LEUKOCYTES IN BLOOD BY AUTOMATED COUNT 8.2 5.1 - 13.7 09/17 Specimen Type: BLOOD No comment entered. Ordering Provider: JOSHUA ESTEBAN Report Released Date/Time: March 19, 2023 04:54 PM Reporting Lab: [facility] [address] [place] [phone] Performing Lab: [facility] [address] [place] [phone] [facility] CBC AND DIFF (AUTO) EOSINOPHIL S/100 LEUKOCYTES IN BLOOD BY AUTOMATED COUNT 1.1 0.4 - 6.8 09/17 Specimen Type: BLOOD No comment entered. Ordering Provider: JOSHUA ESTEBAN Report Released Date/Time: March 19, 2023 04:54 PM Reporting Lab: [facility] [address] [phone] Performing Lab: [facility] [address] [place] [phone] [facility] CBC AND DIFF (AUTO) BASOPHILS/ 100 LEUKOCYTES IN BLOOD BY AUTOMATED COUNT 0.5 0.1 - 2.0 09/17 Specimen Type: BLOOD No comment entered. Ordering Provider: JOSHUA ESTEBAN Report Released Date/Time: March 19, 2023 04:54 PM Reporting Lab: [facility] [place] [facility] [address] [address] Performing Lab: [facility] [place] [facility] [address] [address] [place] [facility] CBC AND DIFF (AUTO) NEUTROPHIL S [#/VOLUME] IN BLOOD BY AUTOMATED COUNT 8.91 10*3/uL 2.20 - 7.60 09/17 H Specimen Type: BLOOD No comment entered. Ordering Provider: JOSHUA ESTEBAN Report Released Date/Time: March 19, 2023 04:54 PM Reporting Lab: [facility] [place] [address] [address] Performing Lab: [facility] [place] [place] [facility] [address] [address] [place] [facility] CBC AND DIFF (AUTO) LYMPHOCYTE S [#/VOLUME] IN BLOOD BY AUTOMATED COUNT 1.62 10*3/uL 1.00 - 3.20 09/17 Specimen Type: BLOOD No comment entered. Ordering Provider: JOSHUA ESTEBAN Report Released Date/Time: March 19, 2023 04:54 PM Reporting Lab: [facility] [place] [place] [facility] [address] [address] Performing Lab: [place] [address] [address] [place] [facility] CBC AND DIFF (AUTO) EOSINOPHIL S [#/VOLUME] IN BLOOD BY AUTOMATED COUNT 0.13 10*3/uL 0.03 - 0.44 09/17 Specimen Type: BLOOD No comment entered. Ordering Provider: JOSHUA ESTEBAN Report Released Date/Time: March 19, 2023 04:54 PM Reporting Lab: [facility] [place] [facility] [address] [address] Performing Lab: [facility] [place] [facility] [address] [address] [facility] [place] [facility] CBC AND DIFF (AUTO) BASOPHILS [#/VOLUME] IN BLOOD BY AUTOMATED COUNT 0.06 10*3/uL 0.01 - 0.13 09/17 Specimen Type: BLOOD No comment entered. Ordering Provider: JOSHUA ESTEBAN Report Released Date/Time: March 19, 2023 04:54 PM Reporting Lab: [facility] [place] [facility] [address] [address] Performing Lab: [facility] [place] [place] [address] [address] [place] [facility] CBC AND DIFF (AUTO) IMMATURE GRANULOCYT ES/100 LEUKOCYTES IN BLOOD BY AUTOMATED COUNT 0.3 0.0 - 0.7 09/17 Specimen Type: BLOOD No comment entered. Ordering Provider: JOSHUA ESTEBAN Report Released Date/Time: March 19, 2023 04:54 PM Reporting Lab: [facility] [place] [facility] [address] [address] Performing Lab: [facility] [place] [place] [address] [address] [facility] [place] [facility] CBC AND DIFF (AUTO) IMMATURE GRANULOCYT ES [#/VOLUME] IN BLOOD 0.04 10*3/uL 0.00 - 0.06 09/17 Specimen Type: BLOOD No comment entered. Ordering Provider: JOSHUA ESTEBAN Report Released Date/Time: March 19, 2023 04:54 PM Reporting Lab: [facility] [place] [facility] [address] [address] Performing Lab: [facility] [place] [place] [address] [address] [facility] [place] [facility] [employer] AUTOMATE D, URINE LEUKOCYTES [#/AREA] IN URINE SEDIMENT BY MICROSCOPY HIGH POWER FIELD 0-5/[HPF ] 0 - 5 11/20 Specimen Type: URINE No comment entered. Ordering Provider: JOSHUA ESTEBAN Report Released Date/Time: Nov 20, 2022 02:09 PM Reporting Lab: [facility] [place] [facility] [address] [address] Performing Lab: [place] [address] [address] [facility] [place] [facility] [employer] AUTOMATE D, URINE MUCUS [#/AREA] IN URINE SEDIMENT BY MICROSCOPY LOW POWER FIELD FEW/[LPF ] 11/20 Specimen Type: URINE No comment entered. Ordering Provider: JOSHUA ESTEBAN Report Released Date/Time: Nov 20, 2022 02:09 PM Reporting Lab: [place] [address] [address] Performing Lab: [place] [facility] [address] [address] [place] [facility] [employer] P[employer] AUTOMATE D, URINE ERYTHROCYT ES [#/AREA] IN URINE SEDIMENT BY MICROSCOPY HIGH POWER FIELD 0-2/[HPF ] 0 - 3 11/20 Specimen Type: URINE No comment entered. Ordering Provider: JOSHUA ESTEBAN Report Released Date/Time: Nov 20, 2022 02:09 PM Reporting Lab: [place] [facility] [address] [address] Performing Lab: [place] [address] [address] [place] [facility] [employer] AUTOMATE D, URINE EPITHELIAL CELLS.SQUA MOUS [#/AREA] IN URINE SEDIMENT BY MICROSCOPY HIGH POWER FIELD FEW/[HPF ] 11/20 Specimen Type: URINE No comment entered. Ordering Provider: JOSHUA ESTEBAN Report Released Date/Time: Nov 20, 2022 02:09 PM Reporting Lab: [place] [facility] [address] [address] Performing Lab: [facility] [place] [facility] [address] [address] [facility] [place] [facility] [employer] AUTOMATE D, URINE AMORPHOUS SEDIMENT [PRESENCE] IN URINE SEDIMENT BY LIGHT MICROSCOPY FEW/[HPF ] 11/20 Specimen Type: URINE No comment entered. Ordering Provider: JOSHUA ESTEBAN Report Released Date/Time: Nov 20, 2022 02:09 PM Reporting Lab: [facility] [place] [place] [facility] [address] [address] Performing Lab: [place] [facility] [address] [address] [place] [facility] URINALYS IS COLOR OF URINE Yellow 11/20 Specimen Type: URINE No comment entered. Ordering Provider: JOSHUA ESTEBAN Report Released Date/Time: Nov 20, 2022 02:09 PM Reporting Lab: [place] [facility] [facility] [address] [address] Performing Lab: [place] [facility] [address] [address] [facility] [place] [facility] URINALYS IS APPEARANCE OF URINE Cloudy 11/20 Specimen Type: URINE No comment entered. Ordering Provider: JOSHUA ESTEBAN Report Released Date/Time: Nov 20, 2022 02:09 PM Reporting Lab: [place] [facility] [facility] [address] [address] Performing Lab: [place] [facility] [facility] [address] [address] [place] [facility] URINALYS IS GLUCOSE [MASS/VOLU ME] IN URINE Negative mg/dL 11/20 Specimen Type: URINE No comment entered. Ordering Provider: JOSHUA ESTEBAN Report Released Date/Time: Nov 20, 2022 02:09 PM Reporting Lab: [place] [facility] [facility] [address] [address] Performing Lab: [place] [address] [address] [facility] [place] [facility] URINALYS IS KETONES [MASS/VOLU ME] IN URINE BY TEST STRIP Negative mg/dL 11/20 Specimen Type: URINE No comment entered. Ordering Provider: JOSHUA ESTEBAN Report Released Date/Time: Nov 20, 2022 02:09 PM Reporting Lab: [facility] [place] [facility] [address] [address] Performing Lab: [facility] [place] [facility] [address] [address] [facility] [place] [facility] URINALYS IS ERYTHROCYT ES [PRESENCE] IN URINE SEDIMENT BY LIGHT MICROSCOPY Negative 11/20 Specimen Type: URINE No comment entered. Ordering Provider: JOSHUA ESTEBAN Report Released Date/Time: Nov 20, 2022 02:09 PM Reporting Lab: [facility] [place] [facility] [address] [address] Performing Lab: [place] [facility] [place] [facility] [address] [address] [facility] [place] [facility] URINALYS IS PROTEIN [MASS/VOLU ME] IN URINE BY TEST STRIP Negative mg/dL 11/20 Specimen Type: URINE No comment entered. Ordering Provider: JOSHUA ESTEBAN Report Released Date/Time: Nov 20, 2022 02:09 PM Reporting Lab: [place] [facility] [address] [address] Performing Lab: [facility] [place] [facility] [address] [address] [facility] [place] [facility] URINALYS IS NITRITE [PRESENCE] IN URINE Negative 11/20 Specimen Type: URINE No comment entered. Ordering Provider: JOSHUA ESTEBAN Report Released Date/Time: Nov 20, 2022 02:09 PM Reporting Lab: [facility] [place] [facility] [address] [address] Performing Lab: [place] [facility] [address] [address] [facility] [place] [facility] URINALYS IS BILIRUBIN. TOTAL [PRESENCE] IN URINE Negative 11/20 Specimen Type: URINE No comment entered. Ordering Provider: JOSHUA ESTEBAN Report Released Date/Time: Nov 20, 2022 02:09 PM Reporting Lab: [facility] [place] [facility] [address] [address] Performing Lab: [facility] [address] [facility] URINALYS IS SPECIFIC GRAVITY OF URINE BY REFRACTOME TRY 1.020 1.016 - 1.022 11/20 Specimen Type: URINE No comment entered. Ordering Provider: JOSHUA ESTEBAN Report Released Date/Time: Nov 20, 2022 02:09 PM Reporting Lab: [facility] [address] Performing Lab: [facility] [address] [facility] URINALYS IS PH OF URINE BY TEST STRIP 8.0 5.0 - 9.0 11/20 Specimen Type: URINE No comment entered. Ordering Provider: JOSHUA ESTEBAN Report Released Date/Time: Nov 20, 2022 02:09 PM Reporting Lab: [facility] [address] Performing Lab: [facility] [address] [facility] URINALYS IS UROBILINOG EN [MASS/VOLU ME] IN URINE BY TEST STRIP <2.0mg/d L <2.0 - 2.0 11/20 Specimen Type: URINE No comment entered. Ordering Provider: JOSHUA ESTEBAN Report Released Date/Time: Nov 20, 2022 02:09 PM Reporting Lab: [facility] [place] [address] [address] Performing Lab: [facility] [place] [place] [facility] [address] [address] [place] [facility] URINALYS IS LEUKOCYTE ESTERASE [PRESENCE] IN URINE BY TEST STRIP Negative 11/20 Specimen Type: URINE No comment entered. Ordering Provider: JOSHUA ESTEBAN Report Released Date/Time: Nov 20, 2022 02:09 PM Reporting Lab: [facility] [place] [facility] [address] [address] Performing Lab: [facility] [place] [facility] [address] [address] [place] [facility] LIPID PANEL FASTING CHOLESTERO L [MASS/VOLU ME] IN SERUM OR PLASMA 173 mg/dL 7 - 199 11/20 Specimen Type: SERUM No comment entered. Ordering Provider: JOSHUA ESTEBAN Report Released Date/Time: Nov 07, 2022 02:38 PM Reporting Lab: [facility] [place] [address] [address] Performing Lab: [place] [address] [address] [facility] [facility] LIPID PANEL FASTING TRIGLYCERI DE [MASS/VOLU ME] IN SERUM OR PLASMA 187 mg/dL 0 - 150 11/20 H Specimen Type: SERUM No comment entered. Ordering Provider: JOSHUA ESTEBAN Report Released Date/Time: Nov 07, 2022 02:38 PM Reporting Lab: [facility] [place] [facility] [address] [address] Performing Lab: [facility] [place] [facility] [address] [address] [place] [facility] LIPID PANEL FASTING CHOLESTERO L IN LDL [MASS/VOLU ME] IN SERUM OR PLASMA BY CALCULATIO N 100 mg/dL 0 - 129 11/20 Specimen Type: SERUM No comment entered. Ordering Provider: JOSHUA ESTEBAN Report Released Date/Time: Nov 07, 2022 02:38 PM Reporting Lab: [facility] [place] [facility] [address] [address] Performing Lab: [facility] [address] [address] [facility] LIPID PANEL FASTING CHOLESTERO L.TOTAL/CH OLESTEROL IN HDL [MASS RATIO] IN SERUM OR PLASMA 4.8 11/20 Specimen Type: SERUM No comment entered. Ordering Provider: JOSHUA ESTEBAN Report Released Date/Time: Nov 07, 2022 02:38 PM Reporting Lab: [facility]ITALRPR[facility]ERN [facility]ENTERUSE[facility] [address] [address] Performing Lab: [facility]ITALRPRINC[facility]ERN [facility]ENTERUSEUP[facility] [address] [address] [facility] LIPID PANEL FASTING CHOLESTERO L IN HDL [MASS/VOLU ME] IN SERUM OR PLASMA 36 mg/dL 40 - 60 11/20 L Specimen Type: SERUM No comment entered. Ordering Provider: JOSHUA ESTEBAN Report Released Date/Time: Nov 07, 2022 02:38 PM Reporting Lab: [facility]ITALR[facility] [address] [address] Performing Lab: [facility]ITALR[facility] [address] [address] [facility] Encounters Combined list of: 1) Encounters from Department of Veterans Affairs facilities going back up to thelast 18 months. 2) Encounters from the Department of Defense facilities going back up to 280 months. Location Location Details Encounter Type Encounter Number Reason For Visit Attending Provider ADM Date DC Date Status Disposition Source [place] OUTPATIENT [id number] Notes Entered by: CHERIE GONZALES 28 Jul 2013 1407 ------- ------- ------- ------- -- Hearing test CHERIE GONZALES 07/28 Released w/o Limitations [place] ) [place] [place]PATIENT [id number] SHUBHAM MAK 07/29 [place]ased [place]o Limitations [place] [facility] [id number] Notes Entered by: Christina MCKEON 30 Jul 2013 1007 ------- ------- ------- ------- -- IMM ROBERT REEVES 07/30 [place]o Limitations [place] [place] [id number] Notes Entered by: MADELINE MEDELLIN 24 Aug 2013 0701 ------- ------- ------- ------- -- ORTHO- HAND MILLY DIAZ 08/24 Released with Work/Duty Limitations [place] [place] [id number] Notes Entered by: RODRIGUE NOBLES 13 Sep 2013 0826 ------- ------- ------- ------- -- IMM-ZAKIA SNYDER 09/13 Released w/o Limitations [place] [place] [id number] Notes Entered by: RODRIGUE NOBLES 01 Oct 2013 0702 ------- ------- ------- ------- -- DERM ZAKIA Bella 10/01 [place]ased w/o Limitations [place] [address]) OUTPATIENT [id number] Notes Entered by: AMANDA HUGHES 30 Dec 2018 0843 ------- ------- ------- ------- -- TENNILLE/ ALEC GARCIA M 12/30 Released w/o Limitations [place]([facility] [address] [address]) Theater Facility OUTPATIENT [id number] Theater Provider 05/08 Released w/o Limitations [facility] OUTPATIENT [id number] Theater Provider 05/09 Released w/o Limitations [facility] OUTPATIENT [id number] Theater Provider 05/12 Released w/o Limitations [facility] OUTPATIENT [id number] Theater Provider 05/23 Released w/o Limitations [facility] OUTPATIENT [id number] Theater Provider 05/24 Released w/o Limitations [facility] OUTPATIENT [id number] Theater Provider 06/28 Released w/o Limitations [facility] OUTPATIENT [id number] Theater Provider 07/03 Released with Work/Duty Limitations [facility] OUTPATIENT [id number] Theater Provider 07/08 Released w/o Limitations [facility] OUTPATIENT [id number] Theater Provider 07/09 Released w/o Limitations [facility] OUTPATIENT [id number] Theater Provider 07/29 Released w/o Limitations [facility] OUTPATIENT [id number] 7 Theater Provider 08/07 Released w/o Limitations [facility] OUTPATIENT [id number] Theater Provider 08/15 Released w/o Limitations [facility] OUTPATIENT [id number] Theater Provider 08/28 Released w/o Limitations [facility] OUTPATIENT [id number] Theater Provider 08/28 Released with Work/Duty Limitations [facility] OUTPATIENT [id number] 2 Theater Provider 09/01 Released w/o Limitations [facility] OUTPATIENT [id number] 1 Theater Provider 09/10 Released w/o Limitations [facility] OUTPATIENT [id number] 5 Theater Provider 09/15 Sick at Home/Quarter s Theater Facilit y Theater Facility OUTPATIENT [id number] 3 Theater Provider 09/16 Sick at Home/Quarter s [facility] OUTPATIENT [id number] 5 Theater Provider 09/17 Sick at Home/Quarter s [facility] Theater [facility] OUTPATIENT [id number] 4 Theater Provider 10/09 Released w/o Limitations Theater Facilit y [place]([facility] [address]) OUTPATIENT [id number] Notes Entered by: SARAI MARQUEZ 25 Nov 2019 1127 ------- ------- ------- ------- -- ELMER SOARES 11/25 Released w/o Limitations [place]([facility] [address]) [place] Hearing Conservat ion) OUTPATIENT [id number] Notes Entered by: CAM HU I 25 Nov 2019 1240 ------- ------- ------- ------- -- POST JADE HO I 11/25 Released w/o Limitations [place] Hearing Conserv ation) [place] Physical Exam Clinic) OUTPATIENT [id number] Notes Entered by: ASAD STEEL 25 Nov 2019 1305 ------- ------- ------- ------- -- HERMAN 638 SELENA REDDY 11/25 Released w/o Limitations [place] Physica l Exam Clinic) [facility] OFF/OP CNSLTJ NEW/EST MOD 40 [id number] Diagnos is: ICD-10- CM G47.33 Obstruc tive sleep apnea (adult) ([facility])
VICTORIA FOX 05/27 [facility] Outpatient Encounter [id number] Diagnos is: ICD-10- CM F43.12 Post-tr aumatic stress disorde r, chronic
ST HARVEY EPHEN G 06/16 [place] [facility] [place] [facility] OFFICE O/P EST LOW 20-29 MIN [id number] Diagnos is: ICD-10- CM M54.59 Other low back pain
GAUNYA,CHR ISTOPHER M 06/23 [facility] En[facility] [id number] 06/24 [facility] POS AIRWAY PRESSURE CPAP [id number] Diagnos is: ICD-10- CM G47.30 Sleep apnea, unspeci fied
ST AMTONIE MEHTA E P 06/26 [facility] En[facility] [id number] 07/11 [facility] [place] Encounter [id number] 09/05 [facility] [place] OFFICE O/P EST MOD 30-39 MIN [id number] Diagnos is: ICD-10- CM M54.59 Other low back pain
CARLITOA WILBERTO 09/17 [place] [facility] Encounter [id number] 09/19 [facility] En[facility] [id number] 09/24 [facility] Encounter [id number] 09/26 [facility] [place] Encounter [id number] 09/26 [facility] Encounter [id number] 09/26 [facility] Encounter [id number] 09/30 [facility] Encounter [id number] 10/02 [facility] [place] Outpatient Encounter [id number] 10/06 [facility] LD OFFICE O/P EST HI 40-54 MIN [id number] Diagnos is: ICD-10- CM F43.12 Post-tr aumatic stress disorde r, chronic
[facility] EPH[facility] G 10[place]13 [place] [facility] En[facility] [id number] 11/03 [facility] [place] Outpatient Encounter [id number] 12/18 [place] [facility] En[facility] [id number] Diagnos is: ICD-10- CM F43.12 Post-tr aumatic stress disorde r, chronic
[facility] HAR[facility] EPHEN G 12[place]18 [place] [facility] En[facility] [id number] 12/22 [facility] En[facility] [id number] 02/11 [facility] Encounter [id number] 02/19 [facility] [place] [facility] OFFICE O/P NEW LOW 30 MIN [id number] Diagnos is: ICD-10- CM G47.33 Obstruc tive sleep apnea (adult) ([facility])
PRISCA KEYES CTORIA J 02/22 [facility] Outpatient Encounter [id number] 02/22 [facility] [place] [facility] [place] [facility] Outpatient Encounter [id number] 03/26 [facility] [place] [facility] [place] Outpatient Encounter [id number] 03/[address] [facility] OFFICE O/P EST HI 40 MIN [id number] Diagnos is: ICD-10- CM F43.12 Post-tr aumatic stress disorde r, chronic
[facility] GABRIEL 04/01 [place] [facility] Outpatient Encounter [id number] 04/23 [facility] [place] [place] [facility] ORAL DEVICE/RODDY LIANCE CUSFAB [id number] Diagnos is: ICD-10- CM G47.33 Obstruc tive sleep apnea (adult) (pediat sarah)
PRISCA KEYES CTORIA J 04/26 [facility] Outpatient Encounter [id number] 06/01 [facility] OFFICE O/P EST LOW 20 MIN [id number] Diagnos is: ICD-10- CM G47.33 Obstruc tive sleep apnea (adult) (pediat sarah)
PRISCA KEYES CTORIA J 06/02 [facility] [place] [place] [facility] Outpatient Encounter [id number] 07/12 [facility] OFFICE O/P EST LOW 20 MIN [id number] Diagnos is: ICD-10- CM G47.33 Obstruc tive sleep apnea (adult) (pediat sarah)
PRISCA KEYES CTORIA J 07/13 [facility] [place] [place] [facility] OFFICE O/P EST [facility]OW 20 MIN [id number] Diagnos is: ICD-10- CM G47.33 Obstruc tive sleep apnea (adult) (pediat sarah)
PRISCA KEYES CTORIA J 07/14 [facility] Outpatient Encounter [id number] 07/15 [facility] [place] Outpatient Encounter [id number] 07/26 [facility] OFFICE O/P EST LOW 20 MIN [id number] Diagnos is: ICD-10- CM G47.33 Obstruc tive sleep apnea (adult) (pediat sarah)
BAEGER DAFFNER, CTORIA J 07/27 [facility] En[facility] [id number] 07/29 [facility] LD OFFICE O/P EST MOD 30 MIN [id number] 1BY. 12 Diagnos is: ICD-10- CM F43.12 Post-tr aumatic stress disorde r, chronic
[facility] [place] [facility] Encounter [id number] 09/21 [facility] Encounter [id number] 1.09/24 [facility]counter [id number] 1.10/06 [facility] Encounter [id number] 1.10/08 [facility] OFFICE O/P EST MOD 30 MIN [id number] Diagnos is: ICD-10- CM F43.12 Post-tr aumatic stress disorde r, chronic
[facility] [place] [facility] COMPREHENS VE ORAL EVALUATION [id number] Diagnos is: ICD-10- CM G47.33 Obstruc tive sleep apnea (adult) (pediat sarah)
PRISCA KEYES CTORIA J 10/11 [facility] Encounter [id number] 10/26 [facility] CASE MGMT-ORAL HEALTH LIT [id number] Diagnos is: ICD-10- CM K03.6 Deposit s [accret ions] on teeth<b r/> JOHNNA RODRIGUEZ K 10/27 [facility] OFFICE O/P EST LOW 20 MIN [id number] Diagnos is: ICD-10- CM G47.33 Obstruc tive sleep apnea (adult) (pediat sarah)
PRISCA KEYES 11/02 [facility] Procedures Combined list of: 1) Procedures from Department of Veterans Affairs facilities going back up to thelast 18 months, not all [place] non-surgical procedures are included; 2) All procedures from the Department of Defense facilities. Procedure Procedure Type Code Date Perfomer Comments Sourc e PATIENT EDUCATION, NOT OTHERWISE CLASSIFIED, NON-PHYSICIAN PROVIDER, GROUP, PER SESSION [facility] SCREENING TEST OF VISUAL ACUITY, QUANTITATIVE, BILATERAL [facility] TYPHOID VACCINE, CAPSULAR POLYSACCHARIDE (VICPS), FOR INTRAMUSCULAR USE [facility] SCREENING TEST OF VISUAL ACUITY, QUANTITATIVE, BILATERAL [facility] HEPATITIS A AND HEPATITIS B VACCINE (HEPA-HEPB), ADULT DOSAGE, FOR INTRAMUSCULAR USE [facility] ADENOVIRUS VACCINE, TYPE 7, LIVE, FOR ORAL USE [facility] FITTING OF SPECTACLES, EXCEPT FOR APHAKIA; MONOFOCAL [facility] EAR MOLD/INSERT, NOT DISPOSABLE, ANY TYPE [facility] Screening Test Of Visual Acuity, Quantitative, Bilateral Screening Test Of Visual Acuity, Quantitative, Bilateral 27061 ALEC MEYERS [facility] Hepatitis A And Hepatitis B (Intramuscular Use) Adult Dosage Hepatitis A And Hepatitis B (Intramuscular Use) Adult Dosage 69252 ZAKIA LAM DoD Immunization Administration By Injection, One Vaccine Immunization Administration By Injection, One Vaccine 21247 ZAKIA LAM DoD Vaccines Adenovirus Type 7 Live, For Oral Use Vaccines Adenovirus Type 7 Live, For Oral Use 91253 ROBERT REEVES A single vaccine dose adminstered orally. DoD Vaccines Adenovirus Type 4 Live, For Oral Use Vaccines Adenovirus Type 4 Live, For Oral Use 41529 ROBERT REEVES A single vaccine dose adminstered orally. DoD Immunization Admin Intranasal / Oral Each Additional Vaccine Immunization Admin Intranasal / Oral Each Additional Vaccine 50421 ROBERT REEVES DoD Influenza Virus Vaccine Intranasal Live Attenuated Influenza Virus Vaccine Intranasal Live Attenuated 23816 ROBERT REEVES Flumist: Each sprayer contains a single dose of Flumist; approximately one-half of the contents was administered into each nostril. Patient was observed for 15 min with no adverse reactions. DoD Immunization Admin By Intranasal / Oral Route One Vaccine Immunization Admin By Intranasal / Oral Route One Vaccine 48184 ROBERT REEVES DoD Immunization Administration By Injection, Each Additional Vaccine Immunization Administration By Injection, Each Additional Vaccine 96346 ROBERT REEVES DoD Physician Supervised Injection Intramuscular Antibiotic Physician Supervised Injection Intramuscular Antibiotic 84996 ROBERT REEVES DoD Tdap Vaccine Tdap Vaccine 74356 ROBERT REEVES Visit for an IM injection of 0.5mL of Boostrix (Tetanus and Diphtheria Toxoids and Acellular Pertussis). Was given in the Right Deltoid. Patient was observed for 15 min with no adverse reactions. [facility] Meningococcal Polysaccharide Diphtheria Toxoid Conjugate Vaccine ROBERT REEVES Visit for an IM injection of 0.5mL of Meningococcal Vaccine (Menactra). Was given in the Left Deltoid. Patient was observed for 15 min with no adverse reactions. [facility] Vaccines Viral Polio, Inactivated Vaccines Viral Polio, Inactivated 97776 ROBERT REEVES Visit for an IM injection of 0.5mL of IPOL (Poliovirus Vaccine Inactivated). Was given in the Right Deltoid. Patient was observed for 15 min with no adverse reactions. [facility] Hepatitis A And Hepatitis B (Intramuscular Use) Adult Dosage Hepatitis A And Hepatitis B (Intramuscular Use) Adult Dosage 21213 ROBERT REEVES Visit for an IM injection of 1mL of Twinrix (Hepatitis A and B combination). Was given in the Right Deltoid. Patient was observed for 15 min with no adverse reactions. [facility] Injection, penicillin g benzathine, 100,000 units ROBERT REEVES Visit for an IM injection of 1.2 million/units per 2 mL of Bicillin L-A (Penicillin G Benxathine injectable suspension). Was given in the Left upper quadrant, left buttock. Patient was observed for 15 min with no adverse reactions. [facility] Skin Test Anergy Tuberculin Intradermal Skin Test Anergy Tuberculin Intradermal 08701 ROBERT REEVES Visit for intradermal tuberculin testing of 0.1mL of Mantoux (Tuberculin Purified Protein Derivative). Was given in the Left forearm, volar surface. Patient was observed for 15 min with no adverse reactions. [facility] Spectacles Services Fitting Monofocal Except For Aphakia Spectacles Services Fitting Monofocal Except For Aphakia 10474 AVI ROSAS Determination Of Refractive State Determination Of Refractive State 84337 AVI ROSAS Ophthalmological New Patient Start Comprehensive Care Ophthalmological New Patient Start Comprehensive Care 44849 AVI ROSAS Ear mold/insert, not disposable, any type CHERIE GONZALES Physician Supervised Group Educational Services Physician Supervised Group Educational Services 22739 CHERIE GONZALES Audiometry Group Testing Audiometry Group Testing 63250 CHERIE GONZALES Screening Test Of Visual Acuity, Quantitative, Bilateral Screening Test Of Visual Acuity, Quantitative, Bilateral 50143 EMLER BETANCUR Threshold Audiogram (Pure Tone) Automated Threshold Audiogram (Pure Tone) Automated 0208T RIKKI CORBIN Patient education, not otherwise cla ified, non-physician provider, group, per se ion RIKKI CORBIN Social History Combined list of available smoking, tobacco, and other social history from Department of Defense and Veterans Affairs facilities. Social History Type Response Date Comment Sourc e Tobacco smoking status NHIS VA-TOBACCO NEVER USED 11/20/2022 [facility] D History of tobacco use VA-TOBACCO NEVER USED 11/26/2021 [facility] D History of tobacco use VA-TOBACCO NEVER USED 04/21/2020 [facility] [place] [facility] This section is an empty social history section. DoD Plan of Care List of future care activities from Department of Veterans Affairs facilities. Additional future care activities may be listed in the Assessment and Plan section. Date/Time Care Activity Care Activity Detail Facili 11/22/2024 AMBULATORY - MEDICINE AMBULATORY - MEDICI [place] [facility] [place] [facility] 12/02/2024 AMBULATORY - PSYCHIATRY AMBULATORY - PSYC [facility] 12/30/2024 AMBULATORY - NONE AMBULATORY - NONE [facility] [place] [facility] 04/12/2025 AMBULATORY - MEDICINE AMBULATORY - MEDICI [place] [facility] [place] [facility] 04/26/2025 AMBULATORY - NONE AMBULATORY - NONE [facility] [place] [facility] 11/02/2024 Consult Order COMMUNITY CARE-D ENTAL SPECIALTY Cons Math Interventionist's Choice [facility] [place] [facility] 11/02/2024 Consult Order HOME SLEEP STUDY NOX/SPOPC OUTPT Cons Math Interventionist's Choice [facility]
--- OUTSIDE RECORDS SUMMARY | 2024-11-08 13:34 | XMS_ITS ---
Author Organization [facility] Address [address] [address] Care Team Providers Care Human Resources Intern Name Role Phone Nena Ortiz Primary Care [...] Problem Status W/U Status Risk Notes Problem 84648990 Vitamin D deficiency (E55.9) Active confirmed Vital Signs Blood pressure systolic 140 mm Hg 10/15/20 24 Blood pressure diastolic 80 mm Hg 024 Heart Rate 70 /min 10/15/2024 Height 71 in 10/15/2024 Weight 277 lbs 10/15/2024 BMI 38.63 kg/m2 10/15/2024 Encounters Encounter Location Date Provider Diagnosis [facility] [address] [address] 10/15/2024 Nena Diana Left foot pain M79.672 [...] Zaheer Roberta jordanradha, 11/18/2024 10:00:00 AM, [address], [address], Progress Notes * Lara ALLENOB:1990 (34 yo M)Acc No.[id number]:10/15/2024 Progress Notes Patient:?Feliciano ALLENs Provider:?Nena Ortiz MD :1990???Age:34 Y???Sex:Male Paxton e:10/15/2024 Address:[address] [place] [address] Subjective: * Chief Complaints: * ???Follow up * HPI: ???Constitutional:? 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
--- OUTSIDE RECORDS SUMMARY | 2024-11-08 13:34 | XMS_ITS | Patient Health Record ---
Author Organization [facility] Address [address] [address] Care Team Providers Care Light Cleaner Name Role Phone Nena Ortiz Primary Care [...] Meloxicam 15 MG TAKE 1 TABLET BY IADAN TH EVERY DAY Oral for 30 Days Active Social History Tobacco Use: Social History Observation Description Date Details (start date - stop date) Never Smoker NA - NA Tobacco Control (Standard) Question Answer Notes Tobacco use: Nonsmoker Problems Problem Type SNOMED Code ICD Code Onset Dates Problem Status W/U Status Risk Notes Problem 60781374 Vitamin D deficiency (E55.9) Active confirmed Problem Mood disorder (05060699) Mood disorder (F39) Active confirmed Problem 935341725 Mild intermitten t asthma without complication (J45.20) Active confirmed Problem 74275334 Hypertension, unspecified type (I10) Active confirmed Problem 62207777 Other migraine without status migrainosus, not intractable [...] Location Date Provider Diagnosis [facility] [address] [place], [place] [address]/10/2024 Nena Ortiz Hypertension, unspecified type I10 [facility] [address] [place] [address]/17/2024 Nena Ortiz Encounter for genera l adult medical examination with abnormal findings Z00.01 ; Hypertension, unspecified type I10 ; Left foot pain M79.672 and Other migraine without status migrainosus, not intractable G43.809 [facility] [address] [place], [place] [address] 10/15/2024 Nena Ortiz Left foot pain M79.672 and Left lateral ankle pain M25.572 [facility] [address] [place], [place] [address]/10/2024 [facility] [address] [place] [address] 08/10/2024 Nena Ortiz Assessments Encounter Date Diagnosis [...] 10:00:00 AM, [address], [place], [address], Insurance Providers Payer Name Payer Address Payer Phone Subscriber Number Group Number Insured Name Patient Relationship to Insured Coverage Start Date Coverage End Date [facility] [email or web address] [facility] [address] [place] [address] [phone] [id number] Thuan Nguyen Self - patient is the insured Medical (General) History Medical History History ICD Code Mild intermittent asthma without complic ation J45.20 Other migraine without status migrainosu s, not intractable G43.809 Mood disorder F39
--- OUTSIDE RECORDS SUMMARY | 2024-11-08 13:34 | XMS_ITS ---
Author Organization [facility] Address [address] [address] Care Team Providers Care Case Management Coordinator Name Role Phone Nena Ortiz Primary Care [...] Problem Status W/U Status Risk Notes Problem 111601237 Mild intermitten t asthma without complication (J45.20) Active confirmed Problem 56765620 Other migraine without status migrainosus, not intractable (G43.809) Active confirmed Problem Mood disorder (49167481) Mood disorder (F39) Active confirmed Vital Signs Blood pressure systolic 140 mm Hg 09/17/20 24 Blood pressure diastolic 80 mm Hg 024 Heart Rate 80 /min 09/17/2024 Respiratory Rate 15 /min 09/17/2024 Height 71 in 09/17/2024 Weight 277 lbs 09/17/2024 BMI 38.63 kg/m2 09/17/2024 Oximetry 98 % 09/17/2024 Encounters Encounter Location Date Provider Diagnosis [facility] [address] [facility] [address] [place] [address] 09/17/2024 Nena Ortiz Encounter for genera l [...] Provider Name:Nena huston, 11/18/2024 10:00:00 AM, [address], [address], Progress Notes * TIFFANYFelicianoKorinaOB:1990 (34 yo M)Acc No.[id number]:09/17/2024 Progress Notes Patient:?Thuan ALLEN Provider:?Nena Ortiz MD :1990???Age:33 Y???Sex:Male Paxton e:09/17/2024 Address:[address] [place], [place] [id number] Subjective: * Chief Complaints: * ???Follow up * HPI: ???Constitutional:? 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 Notes: Weight loss recommended?? 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
--- OUTSIDE RECORDS SUMMARY | 2024-11-08 13:34 | XMS_ITS ---
Author Organization [facility] Address [address] [address] Care Team Providers Care [employer] Industrial Arts Teacher Name Role Phone Nena Ortiz Primary Care Provider Medications Medication SIG (Take, Route, Frequency, Duration) [...] Oral for 5 Days Active Vital Signs Blood pressure systolic 142 mm Hg 09/24/20 24 Blood pressure diastolic 66 mm Hg 024 Heart Rate 100 /min 08/10/2024 Height 71 in 08/10/2024 Weight 287 lbs 08/10/2024 BMI 40.02 kg/m2 08/10/2024 Injured left ankle, work rel ated Encounters Encounter Location Date Provider Diagnosis [facility] [address] [place] [address] 08/10/2024 Nena Ortiz Plan Of Treatment Next Appt Details Provider Name:Nena huston, 11/18/2024 10:00:00 AM, [address], [place], [address], Progress Notes * Feliciano ALLENKorinaOB:1990 (33 yo M)Acc No.[id number]:08/10/2024 Patient:?Thuan ALLEN :1990???Age:33 Y???Sex:Male Address:[address] [place] [address], [place] [address] Subjective: * Chief Complaints: * ??? * [...] * true * Date:? Generated for Faizan lundberg/Barbra/Tapan on:?11/08/2024 01:34 PM EST
--- OUTSIDE RECORDS SUMMARY | 2024-11-08 13:34 | XMS_ITS | Continuity of Care Document ---
Author Organization [place] [facility] Shayan Sánchez AONE [place] Address [address] [facility] [address] [place] [address] Care Team Providers Care Buckle Stapler Name Role Phone CITLALI KENNEY Primary Care Provider CITLALI KENNEY Referring Provider SABA KWOK Instructional Technologist Assessment Encounter Date Assessment Date Assessment LastModified by Organization Details LastModified Time 10/28/2024 10/28/2024 I am unsure the cause of his pain over his fourth and fifth metatarsals, x-rays are reassuring. As it has been for months that he is been through extensive conservative care we will move forward with an MRI to further assess. He remains out of work at this time. Follow-up in 2 to 3 weeks to review results. Patient was seen and evaluated by Adama Steinberg PA-C in indirect conjunction with Documenting Provider: Almita Thompson MD He/She agrees with history, physical examination, tests/diagnosti c imaging, and treatment plan [email or web address] Not available 10/28/2024 09:40:50 Plan of Treatment Reminders Order Date Submit Date Provider Last Modified By Organization Details Last Modified Time Details Appointments WC RESULT 2024 08:45A M Almita Thompson MD Not available Not available Not available Lab None recorded. Referral None recorded. Procedures None recorded. Surgeries None recorded. Imaging XR, ankle, 3 or more view 2023 024 [email or web address] [facility], [address], [address], [place], [address], 10/28/2024 10:36:43 XR, foot, 2 view 2023 024 [facility], [address], [place], [address], 10/28/2024 10:36:43 MRI, foot, w/o contrast - Rule out edema in the fourth and fifth metatarsa ls, rule out occult fracture, work injury 4 months ago, failed conservat vaughn care 2023 024 [email or web address] Not available 11/04/2024 15:17:42 Medication Orders None recorded. Patient TargetsNo targets recorded. Patient Instructions Encounter Date Encounter Id Patient Instructions Last Modified By Organization Details Last Modified Time 10/28/2024 [id number] Weightbearing x-rays of the left foot and ankle were obtained on 10/28/2024 which is negative for acute fracture. No evidence of periosteal stress reaction. No widening of the Lisfranc complex. [email or web address] Not available 10/28/2024 09:41:08 Reason for Referral None Reported. Medical Equipment None Reported. Medications Name Sig Start Date Stop Date Status Note LastModified by Organization Details LastModified Time azithromycin 250 mg tablet TAKE 2 TABLETS BY MOUTH TODAY, THEN TAKE 1 TABLET DAILY FOR 4 DAYS DIRECTED active Not Available Not Available No t Available prednisone 20 mg tablet TAKE 2 TABLETS BY MOUTH ONCE DAILY FOR 5 DAYS active Not Available Not Available No t Available rizatriptan 10 mg tablet PLEASE SEE ATTACHED FOR DETAILED DIRECTIONS active Not Available Not Available N ot Available acyclovir 400 mg tablet TAKE 1 TABLET BY MOUTH 3 TIMES DAILY FOR 5 DAYS active Not Available Not Available N ot Available acetaminophe n 500 mg tablet TAKE 2 TABLETS BY MOUTH EVERY 6 HOURS NEEDED FOR FEVER active Not Available Not Available No t Available amoxicillin 875 mg tablet TAKE 1 TABLET BY MOUTH TWICE A DAY active Not Available Not Available No t Available amitriptylin e 10 mg tablet TAKE 1 TO 2 TABLETS BY MOUTH EVERY DAY AT BEDTIME active Not Available Not Available No t Available benzonatate 100 mg capsule TAKE 1 CAPSULE BY MOUTH THREE TIMES A DAY NEEDED FOR COUGH active Not Available Not Available No t Available erythromycin 5 mg/gram (0.5 %) eye ointment active Not Available Not Available Not Available oseltamivir 75 mg capsule TAKE 1 CAPSULE BY MOUTH TWICE A DAY FOR 5 DAYS active Not Available Not Available No t Available sertraline 25 mg tablet active Not Available Not Available Not Available scopolamine 1 mg over 3 days transdermal patch APPLY 1 PATCH DIRECTED EVERY 3 DAYS NEEDED FOR MOTION SICKNESS active Not Available Not Available No t Available albuterol sulfate HFA 90 mcg/actuatio n aerosol inhaler INHALE 2 PUFFS EVERY 6 HOURS NEEDED FOR SHORTNESS OF BREATH OR WHEEZING active Not Available Not Available Not Available cyclobenzapr ine 5 mg tablet TAKE 1 TABLET BY MOUTH EVERYDAY AT BEDTIME active Not Available Not Available No t Available Ubrelvy 100 mg tablet TAKE 1/2-1 TABLET ONCE NEEDED AT ONSET OF MIGRAINE. MAY REPEAT IN 2 HOURS UP TO MAX 2 TABS/DAY active Not Available Not Available No t Available Paxlovid 300 mg (150 mg x 2)-100 mg tablets in a dose pack TAKE 2 TABLETS (NIRMATRELV IR) AND TAKE 1 TABLET (RITONAVIR) BY MOUTH TWICE A DAY FOR 5 DAYS active Not Available Not Available N ot Available Vitals Date Recorded Body height Body mass index (BMI) Body weight Provider Name and Address Organization Details Last Updated DateTime 10/28/2024 180.34 cm 39.1 kg/m2 633266.86 g ADAMA STEINBERG PA-C [address], [place], [address], [place] [facility], 10/28/2024 09:28:58 Social History None recorded. Functional Status None recorded. Mental Status None recorded. Family History Nothing Reported. Medical History No medical history recorded. Past Encounters Encounter ID Performer Location Encounter Start Date Encounter Closed Date Diagnosis/Indication Diagnosis SNOMED-CT Code Diagnosis ICD10 Code [id number] Almita Thompson MD [address] [place] [address] 10/28/2024 09:05:04 10/28/2024 09:52:11 Ankle pain 984362417 M25.572 Pain in left foot 660715 2164 70762 M79.672 Health Concerns Section Related Observation LastModified by Organization Steffanie vincent LastModified Time None Recorded Concern Status LastModified by Organization Details LastModified Time None Recorded Payers Encounter Date Sequence Insurance Name Policy Number Policy Gloria Covered Member ID Gloria Member ID Guarantor Name 10/28/2024 [facility] [id number] 1 Other Thuan Nguyen Notes Date Note Type Note Provider Name and Address Organization Details Recorded Time 10/28/2024 text/html Date of injury: 07/03/24 Thuan Nguyen is a 34 year old male who presents today For evaluation of his left foot pain. He was responding to a code when he planted the left foot and had to turn quickly to the right. His pain is on the lateral aspect of his foot and radiates into the ankle. He has been seen by the emergency department and occupational health with no overall reassuring workup thus far. He has been attending physical therapy but unfortunately continues to have ongoing discomfort. His pain is worsened with weightbearing. He rates his pain anywhere between a 6 to an 8 on a 10 point scale.He has no medical history. 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 He drinks about 4 alcoholic drinks per week. ADAMA STEINBERG PA-C [address], [place], [address], [place] [facility], P 10/28/2024 09:42:03
--- OUTSIDE RECORDS SUMMARY | 2024-11-08 13:34 | XMS_ITS | Data Portability ---
Author Organization [place] [facility] Shayan Sánchez AONE [place] Address [address] [place] [address] Care Team Providers Care Hand Almond Blancher Name Role Phone CITLALI KENNEY Primary Care Provider CITLALI KENNEY Referring Provider [phone] SABA KWOK Drug Counselor Assessment Encounter Date Assessment Date Assessment LastModified [...] examination, tests/diagnosti c imaging, and treatment plan [email or web address] Not available 10/28/2024 09:40:50 Plan of Treatment Reminders Order Date Submit Date Provider Last Modified By Organization Details Last Modified Time Details Appointments WC RESULT 2024 08:45A M Almita Thompson MD Not available Not available Not available Lab None recorded. Referral None recorded. Procedures None recorded. Surgeries None recorded. Imaging XR, ankle, 3 or more view 2023 024 [email or web address] [facility], [address], [place], [address], 10/28/2024 10:36:43 XR, foot, 2 view 2023 024 [email or web address] [facility], [address], [place], [address], 10/28/2024 10:36:43 MRI, foot, w/o contrast - Rule out edema in the fourth and fifth metatarsa ls, rule out occult fracture, work injury 4 months ago, failed conservat vaughn care 2023 024 [email or web address] Not available 11/04/2024 15:17:42 Medication Orders None recorded. Patient TargetsNo targets recorded. Patient Instructions Encounter Date Encounter Id Patient Instructions Last Modified By Organization Details Last Modified Time 10/28/2024 [id number] Weightbearing x-rays of the left foot and ankle were obtained on 10/28/2024 which is negative for acute fracture. No evidence of periosteal stress reaction. No widening of the Lisfranc complex. [email or web address] Not available 10/28/2024 09:41:08 Reason for Referral [...] Updated DateTime 10/28/2024 180.34 cm 39.1 kg/m2 936938.86 g ADAMA STEINBERG PA-C [address], [place], [address], [place] [facility], 10/28/2024 09:28:58 Social History None recorded. Functional Status None recorded. Mental Status None recorded. Family History Nothing Reported. Medical History No medical history recorded. Past Encounters Encounter ID Performer Location Encounter Start Date Encounter Closed Date Diagnosis/Indication Diagnosis SNOMED-CT Code Diagnosis ICD10 Code [id number] Almita Thompson MD [address] [place] [address] 10/28/2024 09:05:04 10/28/2024 09:52:11 Ankle pain 607089551 M25.572 Pain in left foot 317440 9123 29819 M79.672 Health Concerns Section Related Observation LastModified by Organization Detai ls LastModified Time None Recorded Concern Status LastModified by Organization Details LastModified Time None Recorded Advance Directives Directive None Recorded Payers Encounter Date Sequence Insurance Name Policy Number Policy Gloria Covered Member ID Gloria Member ID Guarantor Name 10/28/2024 [facility] [id number] Other Thuan Nguyen Notes Date [...] no medical history. 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 He drinks about 4 alcoholic drinks per week. ADAMA STEINBERG PA-C [address], [place], [address], [place] [facility], P 10/28/2024 09:42:03
--- OUTSIDE RECORDS SUMMARY | 2024-11-08 13:34 | XMS_ITS | Data Portability ---
Author Organization ZOHREH Perez s, [address] Address [address] [place] [address] Care Team Providers Care Marketing Developer Name Role Phone [facility] Primary Care Provider Assessment No assessment recorded. Plan of Treatment Reminders Order Date Submit Date Provider Last Modified By Organization Details Last Modified Time Details Appointments None recorded. Lab culture, respiratory 2022 023 [place] [facility], [address] [place] [address], [place], [address], 3 16:06:43 rapid flu (A+B) 2022 023 [place] [address], [address] [place] [address], [address], 3 16:46:11 rapid SARS CoV 2 Ag, QL IA, respiratory specimen 2022 023 [place] [address] [facility], [address] [place] [address], [address], 3 16:46:11 rapid strep group A, throat 2022 023 [place] [address], [address] [place] [address], [address], 3 16:46:10 Referral None recorded. Procedures None recorded. Surgeries None recorded. Imaging None recorded. Medication Orders penicillin V potassium [address] [id number], [address] [facility], [place], [address], 16:46:13 Patient TargetsNo targets recorded. Patient Instructions Encounter Date Encounter Id Patient Instructions Last Modified By Organization Details Last Modified Time 11/24/2022 [id number] sore throat: car e instructions [email or web address] Not available 11/24/2022 16:46:27 cough: care instructions [email or web address] Not available 11/24/2022 16:46:11 headache: care instructions [email or web address] Not available 11/24/2022 16:46:11 Reason for Referral None Reported. Results Created Date Observation Date Name Description Value Unit Range Abnormal Flag Note LastModifiedBy Organization Detail LastModifiedTime 11/24/1911/27/2022 UPPER RESPI RATOR Y CULTU RE upper respiratory culture FINAL REPORT Not Available [facility] ([facility]) [address] [facility], [place], [address], 11/27/2022 10:06:50 11/24/19 23 11/27/2022 UPPER RESPI RATOR Y CULTU RE result 1 COMMEN T Routi ne respi rator y annamaria Not Available [facility] ([facility]) [address] [facility], [place], [address], 11/27/2022 10:06:50 11/24/19 23 11/25/2022 PLEAS E NOTE please note Commen t The date and/o r time of colle ction was not indic ated on the requi sitio n as requi red by state and andres al law. The date of recei pt of the speci men was used as the colle ction date if not suppl ied. Not Available [facility] ([facility]) [address] [facility], [place], [address], 11/26/2022 16:06:44 11/24/19 23 11/24/2022 rapid SARS CoV 2 Ag, QL IA, respi rator y speci men Unknown Analyte Normal =Negat vaughn Not Available [address] [place] [address], [place], [address], 11/24/2022 16:14:55 11/24/19 23 11/24/2022 rapid SARS CoV 2 Ag, QL IA, respi rator y speci men Unknown Analyte negati ve Not Available [address] [place] [address], [place], [address], 11/24/2022 16:14:55 11/24/19 23 11/24/2022 rapid flu (A+B) Unknown Analyte Normal = Negati ve Not Available [address] [place] [address], [place], [address], 11/24/2022 16:14:48 11/24/19 23 11/24/2022 rapid flu (A+B) Unknown Analyte negati ve Not Available [address] [place] [address], [place], [address], 11/24/2022 16:14:48 11/24/19 23 11/24/2022 rapid flu (A+B) Unknown Analyte Normal = Negati ve Not Available [address] [place] [address], [place], [address], 11/24/2022 16:14:48 11/24/19 23 11/24/2022 rapid flu (A+B) Unknown Analyte negati ve Not Available [address] [place] [address], [place], [address], 11/24/2022 16:14:48 11/24/19 23 11/24/2022 rapid strep group A, throa t Unknown Analyte Normal = Negati ve Not Available [address] [place] [address], [place], [address], 11/24/2022 16:15:00 11/24/19 23 11/24/2022 rapid strep group A, throa t Unknown Analyte negati ve Not Available [address] [address] [place] [address], [place], [address], 11/24/2022 16:15:00 Result Notes None recorded. Problems Name Problem SNOMED Code Status Onset Date Resolution Date Notes Provider Name and Address Organization Details Recorded Time Gastroesophage al reflux disease 010318433 Active 2022 KENNEY montoya PA - [facility] 3 16:12:05 Migraine 69285910 Active 2022 KENNEY montoya PA - [facility] 3 16:12:17 Chronic back pain 079332964 Active 2022 [facility] - [facility] [...] Updated DateTime 3 180.34 cm 37.1 kg/m2 239640. 57 g 97.2 [degF] 18 /min 78 /min 98 % 98 % 142 mm[Hg] 79 mm[Hg] KENNEY ANGULO [facility] 16:14:38 Social History Question Answer Notes LastModified by Lorena Gaxiolaizat ion Details LastModified Time Tobacco Smoking Status Never Smoker KENNEY montoya PA [facility] 11/24/2022 16:12:54 What Is Your Level [...] Diagnosis/Indication Diagnosis SNOMED-CT Code Diagnosis ICD10 Code [id number] [address] [address] [address] 05/01/2022 17:21:49 05/01/2022 17:50:[address] [id number] [address] [address] 05/03/2020 09:55:42 05/03/2020 11:30:41 [id number] ZOHREH MONTIEL [address] [address] [place] [address] 11/24/2022 15:59:16 11/24/2022 16:57:03 Acute upper respiratory infection 07951462 J06.9 Sore throat 027195018 J0 2.9 Health Concerns Section Related Observation LastModified by Organization Detai ls LastModified Time None Recorded Concern Status LastModified by Organization Details LastModified Time None Recorded Advance Directives Directive None Recorded Payers Encounter Date Sequence Insurance Name Policy Number Policy Gloria Covered Member ID Gloria Member ID Guarantor Name 11/24/2022 [employer] [facility] Thuan Nguyen [id number] Thuan Nguyen Notes Date Note Type Note [...] office as well. BLAYNE Wilcox, ZOHREH [address] [facility] [place], [address], [place] - [facility] 11/24/2022 16:48:47
--- NOTE | 2024-11-08 14:23 | MHC.OFFWIV ---
Intake Vital Signs 11/08/24 14:24 Weight 293 lb BP 124/80 Blood Pressure Location Lt brachial Position Sitting Pulse 99 Pulse Source Pulse Oximeter Pulse Oximetry (%) 97 Oxygen Delivery Method Room Air Intake Visit Reasons: EP Lower back pain Intake Note: Patient here for lower back pain that has been present for a few days. He states he has a hx of back issues. Patient Tobacco Use Status: Never used Tobacco Allergies No Known Allergies Allergy (Verified 11/08/24 14:24) Do you need a note to return to daycare/school/sports/work: No HPI HPI Comments History of Present Illness Details History of Present Illness The patient is a 34-year-old male presenting with severe back pain. The patient reports the onset of severe back pain approximately two days ago without any recent inciting injury or trauma. 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 Previous imaging has shown disc wedging, early arthritis, and degenerative disc changes. He has managed chronic back issues with baclofen, lidocaine patches, and an electrotherapy device, which are not providing relief for this acute exacerbation. He previously engaged in physical therapy and acupuncture. The patient denies any gastrointestinal bleeding history. The patient sought care due to the severe nature of his current pain, which limits certain movements, particularly bending forward and side movements. There is no specific injury noted related to the recent bout of pain. Physical Exam General: Cooperative, healthy appearing, comfortable, no acute distress and well developed Orientation: Patient oriented x3 Limitations: No limitations Head: Normal to inspection Ears: Hearing grossly normal bilaterally Nose: Normal external nose present Face and sinus: Normal facial exam Eyes: Appearance normal, both eyes and all related structures Neck: Normal visual inspection and Yes full ROM Respiratory: Normal respiratory effort and able to speak in complete sentences. Neuro: Patient oriented x3 Extremities: Normal to inspection [facility] Medical History Vasectomy evaluation Anxiety about health Laceration of left thumb Headache Chronic migraine without aura COVID-19 virus infection Viral infection Ear pain, right Otitis media, right Daytime sleepiness Pharyngitis Otitis media Upper respiratory tract infection SOB (shortness of breath) Left carotid bruit Chest pain Puncture wound of finger of left hand IBS (irritable bowel syndrome) Lumbar disc disease Plantar fasciitis, bilateral Sciatic leg pain Tinnitus PTSD (post-traumatic stress disorder) Generalized anxiety disorder Obesity (BMI 30-39.9) Surgical History H/O vasectomy Family History Mother No problems noted. Father No problems noted. Daughter No problems noted. Son No problems noted. Daughter No problems noted. Brother No problems noted. Sister No problems noted. Sister No problems noted. Other Lupus Mental health disorder Social History Housing: House Alcohol intake: current Comment: 3x a week 2 drinks Patient Tobacco Use Status: Never used Tobacco e-Cigarette/Vaping Use: Never Used Second Hand Smoke Exposure: No service: Yes Current occupational status: employed Cognitive needs: No Hearing needs: No Vision needs: Yes Review of Systems Const All systems reviewed & are unremarkable except as noted in HPI and below Physical Exam Vital Signs: Last Vital Signs Pulse 101 H 11/08/24 14:24 BP 124/80 11/08/24 14:24 Pulse Ox 97 11/08/24 14:24 Oxygen Delivery Method Room Air 11/08/24 14:24 Back/Spine/Pelvis Cervical Spine: No Cervical spine tenderness Thoracic/Lumbar Spine: pain with thoraco-lumbar ROM, paraspinal muscle tenderness (low back) bilaterally, No thoracic spinal tenderness and No lumbar spinal tenderness Assessment & Plan Assessment & Plan (1) Acute on chronic low back pain: Code(s): M54.50 - Low back pain, unspecified; G89.29 - Other chronic pain Plan: Plan - Initiate treatment with diclofenac, a prescription NSAID, to address inflammation and alleviate pain. - Advise the patient against taking additional NSAIDs such as ibuprofen or naproxen to avoid duplication. - Recommend the use of acetaminophen or prescribed muscle relaxants to complement the anti-inflammatory regimen. - Continue with current adjunctive therapies, including use of electrotherapy devices and lidocaine patches, to enhance the efficacy of the medication regime. - Xray not indicated. - Discussed potential referral to a meeting specialist if necessary in the future. Emphasized that surgical intervention is not currently favored by the patient. - Monitor response to treatment and adjust or escalate care as necessary based on clinical evolution. Patient was informed and verbally consented to the use of an ambient scribe for clinic note documentation during this visit. Medications: New diclofenac sodium 50 mg PO Q12H PRN 20 tabs 0RF pain Coding Level of Care Code Est Pt Level 3 (75018) Diagnoses Acute on chronic low back pain M54.50; G89.29
[2024-11-08 14:24] VITALS: BP 124/80; PULSE 99; O2SAT 97
== END 2024-11-08 15:01 | disposition home or self-care (01) ==
PROVIDERS: PCP Internal Medicine; Visit Provider Physician Assistant
DX: M54.50 Low back pain, unspecified (principal); G89.29 Other chronic pain

== ENCOUNTER → 2024-11-08 13:28 | Outpatient (BNVA) | payer BC, SELFPAY | PROVIDERS: PCP Internal Medicine; Visit Provider Physician Assistant ==

== ENCOUNTER 2024-12-07 15:19 | Outpatient (AMB) | payer OTHER, BC, SELFPAY ==
--- NOTE | 2024-12-07 15:27 | A.OFFPC_ITS ---
Vital Signs 12/07/24 15:30 Height 6 ft Weight 294 lb BMI 39.9 BP 120/68 Blood Pressure Location Lt brachial Position Sitting Pulse 75 Pulse Source Pulse Oximeter Temp 97.1 F Temp Source Skin Pulse Oximetry (%) 95 Oxygen Delivery Method Room Air Intake Visit Reasons: CHARLES, Obesity Intake Note: Patient is here to follow up on CHARLES, Obesity. Risk Control Officer Required: No Fixture Maker: Not Required per policy Accompanied by: Self / Same As Patient Allergies No Known Allergies Allergy (Verified 12/07/24 15:29) Tobacco use date assessed: 12/07/24 Dental Screening Dental Screen Date: 12/07/24 Did you have a dental visit in the last 12 months?: Yes Did you have a dental problem in the last 6 months where you did not have access to dental care?: No Was dental information given to patient?: Patient has dentist HPI CHARLES, Obesity HPI Details The patient is a 34 year old male presenting with a follow-up for a left ankle sprain sustained at work, which has persisted with weakness and discomfort. The patient underwent conservative management and an MRI, which was unremarkable for fractures, soft tissue damage, or plantar fascial abnor malities. She is contemplating physical therapy, pending authorization from worker's compensation. The patient reports a history of migraines, currently managed with Ubrogepant taken as needed and another prophylactic medication. Headaches are described as diffuse with associated tingling, persisting for variable durations. Sleep apnea is suspected to exacerbate the migraines, and the patient uses a mandibular advancement device with pending adjustments after dental procedures. A sleep study is anticipated to evaluate the efficacy of the device. The patient inquires about weight reduction options, noting insurance constraints. Mounjaro (Tirzepatide) was discussed as a weight loss adjunct and its potential benefits in reducing associated conditions like sleep apnea. Additionally, the patient experiences pain suggestive of kidney stones and plans an ultrasound for confirmation. Furthermore, the patient presents with a newly infected wound on the left hand, attributed to recent self-treatment involving needle punctures. COUNT INCLUDES THE [facility] Medical History (Updated 12/07/24 @ 17:40 by Rosamaria Sam MD) Ankle sprain Vasectomy evaluation Anxiety about health Laceration of left thumb Headache Chronic migraine without aura COVID-19 virus infection Viral infection Ear pain, right Otitis media, right Daytime sleepiness Pharyngitis Otitis media Upper respiratory tract infection SOB (shortness of breath) Left carotid bruit Chest pain Puncture wound of finger of left hand IBS (irritable bowel syndrome) Lumbar disc disease Plantar fasciitis, bilateral Sciatic leg pain Tinnitus PTSD (post-traumatic stress disorder) Generalized anxiety disorder Obesity (BMI 30-39.9) Surgical History H/O vasectomy Family History Mother No problems noted. Father No problems noted. Daughter No problems noted. Son No problems noted. Daughter No problems noted. Brother No problems noted. Sister No problems noted. Sister No problems noted. Other Lupus Mental health disorder Social History Housing: House Alcohol intake: current Comment: 3x a week 2 drinks Patient Tobacco Use Status: Never used Tobacco e-Cigarette/Vaping Use: Never Used Second Hand Smoke Exposure: No service: Yes Current occupational status: employed Cognitive needs: No Hearing needs: No Vision needs: Yes Questionnaire PHQ-9 Over the last 2 weeks, how often have you been bothered by any of the following problems? 1. Little interest or pleasure in doing things: nearly every day 2. Feeling down, depressed, or hopeless: nearly every day (Has therapist) 3. Trouble falling or staying asleep, or sleeping too much: nearly every day 4. Feeling tired or having little energy: nearly every day 5. Poor appetite or overeating: nearly every day 6. Feeling bad about yourself - or that you are a failure or have let yourself or your family down: more than half the days 7. Trouble concentrating on things, such as reading the newspaper or watching television: more than half the days 8. Moving or speaking so slowly that other people could have noticed. Or the opposite - being so fidgety or restless that you have been moving around a lot more than usual: not at all 9. Thoughts that you would be better off or of hurting yourself in some way: several days Total score: 20 Depression Screening Interpretation: Positive Depression Screening Done: Yes Source: Developed by Drs. Harley Maloney, Ros BIrwin Abraham and colleagues, with an educational sena from [employer]. Thrive Questionnaire Date Thrive assessed: 12/07/24 I am a: Patient What is your living situation today?: I have a steady place to live Within the past 12 months, did the food you bought not last and you didn't have the money to get more?: Never true Within the past 12 months, did you worry whether your food would run out before you got money to buy more?: Never true Do you have trouble paying for medicines?: No Do you have trouble getting transportation to medical appointments?: No Do you have trouble paying your heating and electricity bill?: No Do you have trouble taking care of your child, family member or friend?: No Do you have trouble with day-to-day activities such as bathing, preparing meals, shopping, managing finances, etc.?: No Are you currently unemployed and looking for a job?: No Are you interested in more education?: No Please select the resources that you would like help with: None Currently or been in a relationship where the following occur: No concerns repo rted THRIVE Score: 0 AUDIT C Alcohol Use Questionnaire (AUDIT-C) 1. How often do you have a drink containing alcohol?: 2-4 times a month 2. How many drinks containing alcohol do you have on a typical day when you are drinking?: 3 or 4 Total Score: 3 ARTURO-7 AMB Questionnaire ARTURO-7 Date ARTURO - 7 assessed: 12/07/24 Feeling nervous, anxious, or on edge: 3 = Nearly every day (Has therapist) Not being able to stop or control worryin = Nearly every day Worrying too much about different things: 3 = Nearly every day Trouble relaxin = Nearly every day Being so restless that it is hard to sit still: 3 = Nearly every day Becoming easily annoyed or irritable: 3 = Nearly every day Feeling afraid as if something awful might happen: 3 = Nearly every day Total ARTURO-7 score (0-4 normal; 5-9 mild; 10-14 moderate; 15-21 severe): 21 Source: Developed by Drs. Harley Maloney, Irwin Kimball and colleagues, with an educational sena from [employer]. Physical exam (Primary Care) Vital Signs: Last Vital Signs Temp 97.1 F 12/07/24 15:30 Pulse 75 12/07/24 15:30 BP 120/68 12/07/24 15:30 Pulse Ox 95 12/07/24 15:30 Oxygen Delivery Method Room Air 12/07/24 15:30 BMI result Body Mass Index 39.9 Tobacco/Smoking Status: Tobacco use Status Tobacco use date assessed 12/07/24 12/07/24 15:34 Patient Tobacco Use Status Never used Tobacco 12/07/24 15:34 e-Cigarette/Vaping Use Never Used 12/07/24 15:34 PHQ-9: PHQ-9 Score PHQ-9: Total score 20 12/07/24 16:00 Depression Screening Interpretation: Positive Thrive Assessment: Date of Thrive Assessment Date Thrive assessed 12/07/24 12/07/24 15:34 Currently or been in a relationship where the following occur: No concerns reported Const General: alert; No acute distress Eyes Conjunctivae: conjunctivae normal Resp Auscultation: clear to auscultation bilaterally Cardio Rate: regular rate Rhythm: regular rhythm GI Inspection: Yes normal to inspection Extrem Other: Patient's shows me at the end of the meeting a left pinky finger swelling and redness of the distal tip to the base of the nail General: Yes edema Coding Level of Care Code Est Pt Level 4 (92780) Complex EM visit Add On G2211 Diagnoses Left ankle strain S96.912A Intractable migraine with aura without status migrainosus G43.119 Intractability: intractable Status migrainosus presence: without status migrainosus Impaired glucose tolerance R73.02 Obstructive sleep apnea (adult) (pediatric) G47.33 Obesity (BMI 30-39.9) E66.9 Generalized anxiety disorder F41.1 GERD (gastroesophageal reflux disease) K21.9 Paronychia of finger L03.019 Assessment & Plan Assessment & Plan (1) Left ankle strain: Code(s): S96.912A - Strain of unspecified muscle and tendon at ankle and foot level, left foot, initial encounter Category: Medical (2) Migraine with aura: Comment: Occassional migraine w/ aura- may see spots and has had right sided head numbness Code(s): G43.109 - Migraine with aura, not intractable, without status migrainosus Category: Medical Qualifiers: Intractability: intractable Status migrainosus presence: without status migrainosus Qualified Code(s): G43.119 - Migraine with aura, intractable, without status migrainosus (3) Impaired glucose tolerance: Code(s): R73.02 - Impaired glucose tolerance (oral) Category: Medical (4) Obstructive sleep apnea (adult) (pediatric): Comment: CPAP 04/2022 cannot tolerate CPAP Code(s): G47.33 - Obstructive sleep apnea (adult) (pediatric) Category: Medical (5) Obesity (BMI 30-39.9): Code(s): E66.9 - Obesity, unspecified Category: Medical (6) Generalized anxiety disorder: Comment: psychiatrist [place]- dr. Bradley Rogers Code(s): F41.1 - Generalized anxiety disorder Category: Medical (7) GERD (gastroesophageal reflux disease): Code(s): K21.9 - Gastro-esophageal reflux disease without esophagitis Category: Medical (8) Paronychia of finger: Comment: Left fifth finger 11/2024 Code(s): L03.019 - Cellulitis of unspecified finger Category: Medical Plan: Had a long discussion with the patient regarding this as this is dangerous for them to manipulate a nail swelling. Antibiotic prescribed and if not getting any better advised to call Plan - Initiate antibiotics for the digital wound infection, cautioning against further self-treatment. - Delay starting Tirzepatide until infection resolution. Evaluate weight loss progress and potential for sleep apnea improvement. - Continue current migraine management regimen. Consider further adjustment based on efficacy and side effects. - Recommend physical therapy for left ankle sprain pending worker's compensation approval. - Schedule the patient for a sleep study to evaluate sleep apnea device efficacy. - Encourage adequate hydration and submit request for renal ultrasound to investigate suspected nephrolithiasis. Medications: New tirzepatide (weight loss) (Zepbound) for 4 weeks 2.5 mg (0.5 mL) subcut QWEEK 2 mL 1RF E66.9 - Obesity, unspecified amoxicillin-pot clavulanate 875-125 mg 1 tab PO BID 14 tabs 0RF L03.019 - Cellulitis of unspecified finger
[2024-12-07 15:30] VITALS: BP 120/68; PULSE 75; TEMP 36.2; O2SAT 95; BMI 39.9
--- OUTSIDE RECORDS SUMMARY | 2024-12-07 17:17 | XMS_ITS | Continuity of Care Document ---
Author Name [facility] Organization [facility] Care Team Providers Care Superintendent Stevedoring Name Role Phone [facility] Unavailable Unavailable Problems [...] Condition DoD Lower abdominal pain, unspecified Active Condition DoD Diarrhea, unspecified Active Condition DoD Need For Vaccination Hepatitis A And Hepatitis B Inactive 013 Condition DoD Chronic back pain Active Condition Ap r 2019 Entered By: RUTHIE ESTEBAN Comment: intermittent Rsided sciaticaApr 2019 Entered By: RUTHIE ESTEBAN Comment: degenerative disc disease by historySep 2019 Entered By: RUTHIE ESTEBAN Comment: April 2020 MRI - no abnormalityNov 2022 Entered By: MIGUELITO GABRIEL Comment: reviewed [facility] Chronic Post-Traumatic Stress Disorder ([facility] [id number]) Active Condition Oct 13, 2023 Entered By: MIGUELITO GABRIEL Comment: reviewed [facility] Coman[facility] Active Condition Dec 01, 2022 Entered By: RUTHIE ESTEBAN Comment: Belén Knigth [facility] Exposure to potentially hazardous substance Active Condition Dec 15, 2022 Entered By: JANEY RODRIGEZ Comment: [place] [facility] ([facility]GE) History of deployment Active Condition [facility] Major depressive disorder Active Condition Jan 25, 2021 Entered By: MIGUELITO GABRIEL Comment: reviewedAug 20, 2021 Entered By: MIGUELITO GABRIEL Comment: reviewedOct 13, 2023 Entered By: MIGUELITO GABRIEL Comment: reviewed [facility] Migraine Active Condition Jul 25 Entered By: RUTHIE ESTEBAN Comment: followed by Dr. Vo [facility] Sleep apnea Active Condition Sep 09, 2022 Entered By: RUTHIE ESTEBNA Comment: unable to tolerate PAP therapy [facility] Affective disorder Inactive Condition 10/13/2023 [facility] Chronic post-traumatic stress disorder Inactive Condition 08/20/2021 [facility] LD contact dermatitis Active Condition DoD patient function at time of event - activity Active Condition [facility] location of accident - training facility Inactive [...] exam for hearing conservation, treatment Inactive Condition [facility] Diagnosis: ICD-10-CM F43.12 Post-traumatic stress disorder, chronic Active Diagnosis [place] Diagnosis: ICD-10-CM G47.33 Obstructive sleep apnea (adult) (pediatric) Active Diagnosis [facility] Diagnosis: ICD-10-CM K03.6 Deposits [accretions] on teeth Active Diagnosis [facility] Diagnosis: ICD-10-CM M54.59 Other low back pain Active Diagnosis [place] Diagnosis: ICD-10-CM G47.30 Sleep apnea, unspecified Active Diagnosis [facility] Medications Combined list of outpatient medications from Department of Defense and [facility] Affairs facilities.Medications provided include 1) outpatient medications from the last 15 months, and 2) patient-reported medications. Medication Details Route Status Patient Instructions Prescription Expires Prescription Number Last Dispense Date Ordering Provider Order Date Order Qty Source AMITRIPTYLI NE HCL 10MG TAB TAKE ONE TABLET BY MOUTH AT BEDTIME ORAL ACTIVE Guy GABRIEL 2023 [place] AMOXICILLIN 500 MG ORAL CAP TAKE ONE CAPSULE BY MOUTH TWICE DAILY 10/17/2023 [id number] GLORIA ESTEBAN O C 2022 20 [facility] AMOXICILLIN TRIHYDRATE 500MG CAP TAKE ONE CAPSULE BY MOUTH TWICE DAILY ORAL 10/17/2023 [id number] GLORIA ESTEBAN O 2022 20 [place] sertraline (U/D) 25 MG ORAL TAB TAKE ONE TABLET BY MOUTH ONCE DAILY FOR MOOD 10/13/2024 [id number] 4 MIGUELITO GABRIEL 2023 60 [facility] SERTRALINE HCL 25MG TAB TAKE ONE TABLET BY MOUTH ONCE DAILY FOR POSTTRAU MATIC STRESS SYNDROME ORAL ACTIVE 08/06/2025 [id number] 5 Guy GABRIEL 2023 60 [place] SERTRALINE HCL 25MG TAB TAKE ONE TABLET BY MOUTH ONCE DAILY FOR MOOD ORAL DISCONT INUED 10/13/2024 [id number] 4 Guy GABRIEL 2022 60 [place] SODIUM FLUORIDE 1.1% TOOTHPASTE BRUSH SMALL AMOUNT TO TEETH TWICE DAILY FOR TOOTH DECAY PREVENTI ON DENTAL ACTIVE 10/12/2025 [id number] 4 Geraldine KEYES 2023 51 [facility] UBROGEPANT TAB TAKE BY MOUTH ONE TIME ORAL ACTIVE Guy GABRIEL [address] [facility] I[place] Allergies, Adverse Reactions, Alerts Combined list of allergies from Department of Defense and Veterans Affairs facilities. It does not include entries that were removed or entered in error. Substance Category Reaction Severity Reaction type Status Date Reported Comments Source No Known Allergies Drug allergy (disorder) active 08/24/2013 Pradip DE JESUS, Fabio [facility] Immunizations Combined list of available immunizations from the Department of Defense and Veterans Affairs facilities. Immunization Series Date Given Administered By Site Reaction Lot Number CVX Code Drug Performance Improvement Consultant Status Comments Source influenza, injectable, quadrivalent, contains preservative 1 2018 [id number] [employer] (SEQ) complet ed influenza , injectabl e, quadrival ent, contains preservat vaughn DoD anthrax vaccine 1 2018 [id number] [facility] anthrax vaccine DoD typhoid Vi capsular polysaccharid e vaccine 1 2018 [id number] Sanofi Pasteur (PMC) complet ed typhoid Vi capsular polysacch aride vaccine DoD Influenza, seasonal, injectable, preservative free 1 2017 [id number] [employer] (SEQ) comple t ed Influenza , seasonal, injectabl e, preservat vaughn free DoD Influenza, injectable, quadrivalent, preservative free 1 2017 UNK 150 Unknown (UNK) comple t ed Influenza , injectabl e, quadrival ent, preservat vaughn free DoD Influenza, seasonal, injectable, preservative free 1 2016 [id number] 140 Unknown (UNK) comple t ed Influenza , seasonal, injectabl e, preservat vaughn free DoD Influenza, seasonal, injectable, preservative free 1 2015 [id number] Other (OTH) complet ed Influenza , seasonal, injectabl e, preservat vaughn free DoD Influenza, seasonal, injectable, preservative free 1 2014 [id number] 140 Other (OTH) complet ed Influenza , seasonal, injectabl e, preservat vaughn free DoD hepatitis B vaccine, adult dosage 3 2013 [id number] 43 Other (OTH) complet ed hepatitis B vaccine, adult dosage DoD hepatitis A vaccine, adult dosage 3 2013 [id number] 52 Other (OTH) complet ed hepatitis A vaccine, adult dosage DoD Influenza, seasonal, injectable, preservative free 1 2013 [id number] 140 [facility] (SKB) complet ed Influenza , seasonal, injectabl e, preservat vaughn free DoD hepatitis A and hepatitis B vaccine 2 2012 [id number] 104 [facility] (SKB) complet ed hepatitis A and hepatitis B vaccine DoD measles, mumps and rubella virus vaccine 1 2012 UNK 03 Unknown (UNK) Not Given measles, mumps and rubella virus vaccine DoD varicella virus vaccine 1 2012 UNK 21 Unknown (UNK) Not Given varicella virus vaccine DoD hepatitis A and hepatitis B vaccine 1 2012 [id number] 104 [facility] (SKB) complet ed hepatitis A and hepatitis B vaccine DoD Adenovirus, type 4 and type 7, live, oral 1 2012 [id number] 143 [facility] (NIH) ([facility]) complet ed Adenoviru s, type 4 and type 7, live, oral DoD influenza, live, intranasal, quadrivalent 1 2012 [id number] 149 [employer] (CSL) complet ed influenza , live, intranasa l, quadrival ent DoD poliovirus vaccine, inactivated 1 2012 [id number] 10 Sanofi Pasteur (PMC) complet ed polioviru s vaccine, inactivat ed DoD meningococcal polysaccharid e (groups A, C, Y and W-135) diphtheria toxoid conjugate vaccine (MCV4P) 1 2012 [id number] 114 [employer] (SKB) complet ed meningoco ccal polysacch aride (groups A, C, Y and W-135) diphtheri a toxoid conjugate vaccine (MCV4P) DoD tetanus toxoid, reduced diphtheria toxoid, and acellular pertu is vaccine, adsorbed 1 2012 [id number] 115 Sanofi Pasteur (PMC) complet ed tetanus toxoid, reduced diphtheri a toxoid, and acellular pertussis vaccine, adsorbed DoD Results Combined list of recent chemistry, hematology and other laboratory results from Department of Defense and Veterans Affairs, ranging from 15 months to all on record, depending upon the facility. Order Name Results Value Reference Range Date Interpretation Specimen Comments Source STREP A (CEPHEID) STREP A (CEPHEID) D 09/17 Specimen Type: PHARYNX No comment entered. Ordering Provider: JOSHUA ESTEBAN Report Released Date/Time: Sep 17, 2023 11:53 AM Reporting Lab: [facility] [facility] [address] [facility] [address] Performing Lab: [facility] [place] [facility] [address] [facility] [address] [place] [facility] [facility] LIPID PANEL FASTING CHOLESTEROL [MASS/VOLUM E] IN SERUM OR PLASMA 168 mg/dL 09/17 Specimen Type: SERUM No comment entered. Ordering Provider: JOSHUA ESTEBAN Report Released Date/Time: March 19, 2023 04:54 PM Reporting Lab: [facility] [place] [facility] [address] [facility] [address] Performing Lab: [facility] [place] [address] [address] [facility] [facility] LIPID PANEL FASTING TRIGLYCERID E [MASS/VOLUM E] IN SERUM OR PLASMA 185 mg/dL 0 - 150 09/17 H Specimen Type: SERUM No comment entered. Ordering Provider: JOSHUA ESTEBAN Report Released Date/Time: March 19, 2023 04:54 PM Reporting Lab: [facility] [place] [address] [address] Performing Lab: [facility] [place] [address] [address] [facility] LIPID PANEL FASTING CHOLESTEROL IN LDL [MASS/VOLUM E] IN SERUM OR PLASMA BY CALCULATION 91 mg/dL 0 - 129 09/17 Specimen Type: SERUM No comment entered. Ordering Provider: JOSHUA ESTEBAN Report Released Date/Time: March 19, 2023 04:54 PM Reporting Lab: [facility] [place] [address] [address] Performing Lab: [facility] [place] [address] [address] [facility] LIPID PANEL FASTING CHOLESTEROL .TOTAL/CHOL ESTEROL IN HDL [MASS RATIO] IN SERUM OR PLASMA 4.2 09/17 Specimen Type: SERUM No comment entered. Ordering Provider: JOSHUA ESTEBAN Report Released Date/Time: March 19, 2023 04:54 PM Reporting Lab: [facility] [place] [facility] [address] [facility] [address] Performing Lab: [facility] [address] [facility] [address] [facility] LIPID PANEL FASTING CHOLESTEROL IN HDL [MASS/VOLUM E] IN SERUM OR PLASMA 40 mg/dL 40 - 60 09/17 Specimen Type: SERUM No comment entered. Ordering Provider: JOSHUA ESTEBAN Report Released Date/Time: March 19, 2023 04:54 PM Reporting Lab: [facility] TRN [facility] [address] Performing Lab: [facility] [address] [facility]ITALRUAB HOSPITALN [facility] BASIC METABOLIC PANEL (fasting) UREA NITROGEN [MASS/VOLUM E] IN SERUM OR PLASMA 13 mg/dL 7 - 25 09/17 Specimen Type: SERUM No comment entered. Ordering Provider: JOSHUA ESTEBAN Report Released Date/Time: March 19, 2023 04:54 PM Reporting Lab: [facility] [place] [address] [address] Performing Lab: [place] [facility] [address] [address] [facility] TRN [place] [facility] BASIC METABOLIC PANEL (fasting) GLUCOSE [MASS/VOLUM E] IN SERUM OR PLASMA 92 mg/dL 65 - 100 09/17 Specimen Type: SERUM No comment entered. Ordering Provider: JOSHUA ESTEBAN Report Released Date/Time: March 19, 2023 04:54 PM Reporting Lab: [facility] [place] [facility] [address] [facility] [address] Performing Lab: [facility] [place] [address] [address] [facility] [place] [facility] BASIC METABOLIC PANEL (fasting) SODIUM [MOLES/VOLU ME] IN SERUM OR PLASMA 139 mmol/L 135 - 145 09/17 Specimen Type: SERUM No comment entered. Ordering Provider: JOSHUA ESTEBAN Report Released Date/Time: March 19, 2023 04:54 PM Reporting Lab: [facility] [place] [facility] [address] [facility] [address] Performing Lab: [facility] [place] [place] [facility] [address] [facility] [address] [facility]USE [facility] BASIC METABOLIC PANEL (fasting) POTASSIUM [MOLES/VOLU ME] IN SERUM OR PLASMA 4.2 mmol/L 3.5 - 5.0 09/17 Specimen Type: SERUM No comment entered. Ordering Provider: JOSHUA ESTEBAN Report Released Date/Time: March 19, 2023 04:54 PM Reporting Lab: [facility] [place] [address] [address] Performing Lab: [place] [facility] [place] [address] [address] [facility]PITALRST. VINCENT'S HOSPITALTRN [facility]ENTERUSE [facility] BASIC METABOLIC PANEL (fasting) CHLORIDE [MOLES/VOLU ME] IN SERUM OR PLASMA 105 mmol/L 100 - 110 09/17 Specimen Type: SERUM No comment entered. Ordering Provider: JOSHUA ESTEBAN Report Released Date/Time: March 19, 2023 04:54 PM Reporting Lab: [facility] [place] [address] [address] Performing Lab: [place] [facility] [place] [address] [address] [facility] [place] [facility] BASIC METABOLIC PANEL (fasting) CARBON DIOXIDE, TOTAL [MOLES/VOLU ME] IN SERUM OR PLASMA 26 meq/L 20 - 30 09/17 Specimen Type: SERUM No comment entered. Ordering Provider: JOSHUA ESTEBAN Report Released Date/Time: March 19, 2023 04:54 PM Reporting Lab: [facility] [place] [address] [address] Performing Lab: [facility] [place] [facility] [address] [facility] [address] [facility] [place] [facility] BASIC METABOLIC PANEL (fasting) CREATININE [MASS/VOLUM E] IN SERUM OR PLASMA 1.11 mg/dL 0.50 - 1.40 09/17 Specimen Type: SERUM No comment entered. Ordering Provider: JOSHUA ESTEBAN Report Released Date/Time: March 19, 2023 04:54 PM Reporting Lab: [facility] [place] [facility] [address] [facility] [address] Performing Lab: [facility]ITALRL WSTRN [facility] [address] [facility] [address] [facility]ITALRL TRN [facility]ENTERUSE [facility] BASIC METABOLIC PANEL (fasting) GLOMERULAR FILTRATION RATE/1.73 SQ M.PREDICTED [VOLUME RATE/AREA] IN SERUM, PLASMA OR BLOOD BY CREATININE- BASED FORMULA (CKD-EPI 2020) 90 mL/min 60 09/17 Specimen Type: SERUM No comment entered. Ordering Provider: JOSHUA ESTEBAN Report Released Date/Time: March 19, 2023 04:54 PM Reporting Lab: [facility]ITALRL TRN [facility] [address] [facility] [address] Performing Lab: [facility]ITALRL WSTRN [facility] CENTERUSETS [facility] [address] [facility] [address] [facility]RL RUSTN [facility] LIVER FUNCTION PROTEIN [MASS/VOLUM E] IN SERUM OR PLASMA 7.5 g/dL 6.0 - 8.3 09/17 Specimen Type: SERUM No comment entered. Ordering Provider: JOSHUA ESTEBAN Report Released Date/Time: March 19, 2023 04:54 PM Reporting Lab: [facility]ITALRL WSTRN [facility]ENTERUSETS [facility] [address] [facility] [address] Performing Lab: [facility]ITALRL WSTRN [facility]USE[facility] [address] [facility] [address] [facility]ITALRUAB HOSPITALN [facility] LIVER FUNCTION ALBUMIN [MASS/VOLUM E] IN SERUM OR PLASMA 4.3 g/dL 3.5 - 5.0 09/17 Specimen Type: SERUM No comment entered. Ordering Provider: JOSHUA ESTEBAN Report Released Date/Time: March 19, 2023 04:54 PM Reporting Lab: [facility] [place] [facility] [address] [facility] [address] Performing Lab: [facility] [place] [facility] [address] [facility] [address] [facility] [place] [facility] LIVER FUNCTION ALKALINE PHOSPHATASE [ENZYMATIC ACTIVITY/VO LUME] IN SERUM OR PLASMA 49 U/L 40 - 150 09/17 Specimen Type: SERUM No comment entered. Ordering Provider: JOSHUA ESTEBAN Report Released Date/Time: March 19, 2023 04:54 PM Reporting Lab: [facility] [place] [facility] [address] [facility] [address] Performing Lab: [facility] [place] [address] [address] [place] [facility] [facility] LIVER FUNCTION ASPARTATE AMINOTRANSF ERASE [ENZYMATIC ACTIVITY/VO LUME] IN SERUM OR PLASMA 19 U/L 5 - 34 09/17 Specimen Type: SERUM No comment entered. Ordering Provider: JOSHUA ESTEBAN Report Released Date/Time: March 19, 2023 04:54 PM Reporting Lab: [facility] [place] [address] [address] Performing Lab: [facility] [place] [address] [address] [place] [facility] [facility] LIVER FUNCTION ALANINE AMINOTRANSF ERASE [ENZYMATIC ACTIVITY/VO LUME] IN SERUM OR PLASMA 30 U/L 09/17 Specimen Type: SERUM No comment entered. Ordering Provider: JOSHUA ESTEBAN Report Released Date/Time: March 19, 2023 04:54 PM Reporting Lab: [facility] [place] [address] [address] Performing Lab: [facility] [place] [address] [address] [facility] [place] [facility] LIVER FUNCTION BILIRUBIN.T OTAL [MASS/VOLUM E] IN SERUM OR PLASMA 0.8 mg/dL 0.2 - 1.2 09/17 Specimen Type: SERUM No comment entered. Ordering Provider: JOSHUA ESTEBAN Report Released Date/Time: March 19, 2023 04:54 PM Reporting Lab: [facility] [address] [facility] [address] Performing Lab: [facility]ITALRL RUSTN [facility]USE[facility] [address] [facility] [address] [facility] TSH THYROTROPIN [UNITS/VOLU ME] IN SERUM OR PLASMA 2.26 u[IU]/ mL 0.35 - 5.00 09/17 Specimen Type: SERUM No comment entered. Ordering Provider: JOSHUA ESTEBAN Report Released Date/Time: March 19, 2023 04:54 PM Reporting Lab: [facility] [address] [address] Performing Lab: [facility]PITALRL RUSTN [address] [address] [facility] HEMOGLOBI N A1C PANEL HEMOGLOBIN A1C/HEMOGLO BIN.TOTAL IN BLOOD BY HPLC 5.2 4.0 - [...] March 19, 2023 04:54 PM Reporting Lab: [facility] [address] [address] Performing Lab: [facility]PITALRUAB HOSPITALN [facility]ENTERUSE[address] [address] [facility]ERN [facility]USE [facility] CBC AND DIFF (AUTO) LEUKOCYTES [#/VOLUME] IN BLOOD BY AUTOMATED COUNT 11.72 10*3/u L 4.50 - 11.00 09/17 H Specimen Type: BLOOD No comment entered. Ordering Provider: JOSHUA ESTEBAN Report Released Date/Time: March 19, 2023 04:54 PM Reporting Lab: [place] [facility] [place] [facility] [address] [facility] [address] Performing Lab: [place] [facility] [place] [facility] [address] [facility] [address] [facility] [place] [facility] CBC AND DIFF (AUTO) ERYTHROCYTE S [#/VOLUME] IN BLOOD BY AUTOMATED COUNT 5.54 10*6/u L 4.23 - 5.66 09/17 Specimen Type: BLOOD No comment entered. Ordering Provider: JOSHUA ESTEBAN Report Released Date/Time: March 19, 2023 04:54 PM Reporting Lab: [place] [facility] [place] [address] [address] Performing Lab: [place] [facility] [place] [address] [address] [facility]ITALRL [facility]N [place] TS [facility] CBC AND DIFF (AUTO) HEMOGLOBIN [MASS/VOLUM E] IN BLOOD 14.9 g/dL 12.8 - 17 09/17 Specimen Type: BLOOD No comment entered. Ordering Provider: JOSHUA ESTEBAN Report Released Date/Time: March 19, 2023 04:54 PM Reporting Lab: [facility] [place] [address] [address] Performing Lab: [facility] [place] [address] [address] [place] [facility] [place] [facility] CBC AND DIFF (AUTO) HEMATOCRIT [VOLUME FRACTION] OF BLOOD BY AUTOMATED COUNT 45.1 39.2 - 50.4 09/17 Specimen Type: BLOOD No comment entered. Ordering Provider: JOSHUA ESTEBAN Report Released Date/Time: March 19, 2023 04:54 PM Reporting Lab: [facility] [place] [address] [address] Performing Lab: [facility] [place] [address] [address] [place] [facility] [facility] CBC AND DIFF (AUTO) MCV [ENTITIC VOLUME] BY AUTOMATED COUNT 81.4 fL 82 - 99 09/17 L Specimen Type: BLOOD No comment entered. Ordering Provider: JOSHUA ESTEBAN Report Released Date/Time: March 19, 2023 04:54 PM Reporting Lab: [facility] [place] [facility] [address] [facility] [address] Performing Lab: [facility] [place] [facility] [address] [facility] [address] [facility] [place] [facility] CBC AND DIFF (AUTO) MCHC [MASS/VOLUM E] BY AUTOMATED COUNT 33.0 g/dL 30.8 - 35.1 09/17 Specimen Type: BLOOD No comment entered. Ordering Provider: JOSHUA ESTEBAN Report Released Date/Time: March 19, 2023 04:54 PM Reporting Lab: [facility] [place] [facility] [address] [facility] [address] Performing Lab: [place] [facility] [place] [facility] [address] [facility] [address] [facility] [place] CBC AND DIFF (AUTO) PLATELETS [#/VOLUME] IN BLOOD BY AUTOMATED COUNT 294 10*3/u L 140 - 360 09/17 Specimen Type: BLOOD No comment entered. Ordering Provider: JOSHUA ESTEBAN Report Released Date/Time: March 19, 2023 04:54 PM Reporting Lab: [facility] [place] [facility] [address] [facility] [address] Performing Lab: [place] [facility] [place] [facility] [address] [facility] [address] [place] [facility] [place] [facility] CBC AND DIFF (AUTO) ERYTHROCYTE DISTRIBUTIO N WIDTH [RATIO] BY AUTOMATED COUNT 13.9 12.0 - 16.0 09/17 Specimen Type: BLOOD No comment entered. Ordering Provider: JOSHUA ESTEBAN Report Released Date/Time: March 19, 2023 04:54 PM Reporting Lab: [facility] [place] [facility] [address] [facility] [address] Performing Lab: [place] [facility] [place] [facility] [address] [facility] [address] [facility] [place] [facility] CBC AND DIFF (AUTO) MONOCYTES [#/VOLUME] IN BLOOD BY AUTOMATED COUNT 0.96 10*3/u L 0.30 - 1.10 09/17 Specimen Type: BLOOD No comment entered. Ordering Provider: JOSHUA ESTEBAN Report Released Date/Time: March 19, 2023 04:54 PM Reporting Lab: [facility] [place] [facility] [address] [facility] [phone] Performing Lab: [facility] [place] [facility] [address] [facility] [address] [facility] CBC AND DIFF (AUTO) MCH [ENTITIC MASS] BY AUTOMATED COUNT 26.9 pg 26.2 - 32.6 09/17 Specimen Type: BLOOD No comment entered. Ordering Provider: JOSHUA ESTEBAN Report Released Date/Time: March 19, 2023 04:54 PM Reporting Lab: [facility] [place] [place] [facility] [address] [facility] [address] Performing Lab: [facility] [place] [facility] [address] [facility] [address] [facility] [place] [facility] CBC AND DIFF (AUTO) NEUTROPHILS /100 LEUKOCYTES IN BLOOD BY AUTOMATED COUNT 76.1 43.7 - 75.8 09/17 H Specimen Type: BLOOD No comment entered. Ordering Provider: JOSHUA ESTEBAN Report Released Date/Time: March 19, 2023 04:54 PM Reporting Lab: [facility] [place] [facility] [address] [facility] [address] Performing Lab: [facility] [place] [address] [address] [facility] [place] [facility] CBC AND DIFF (AUTO) LYMPHOCYTES /100 LEUKOCYTES IN BLOOD BY AUTOMATED COUNT 13.8 14.0 - 42.3 09/17 L Specimen Type: BLOOD No comment entered. Ordering Provider: JOSHUA ESTEBAN Report Released Date/Time: March 19, 2023 04:54 PM Reporting Lab: [facility] [place] [facility] [address] [facility] [address] Performing Lab: [facility] [place] [facility] [address] [facility] [address] [facility] CBC AND DIFF (AUTO) MONOCYTES/1 00 LEUKOCYTES IN BLOOD BY AUTOMATED COUNT 8.2 5.1 - 13.7 09/17 Specimen Type: BLOOD No comment entered. Ordering Provider: JOSHUA ESTEBAN Report Released Date/Time: March 19, 2023 04:54 PM Reporting Lab: [facility] [place] [facility] [address] [facility] [address] Performing Lab: [facility] [place] [facility] [address] [facility] [address] [facility] CBC AND DIFF (AUTO) EOSINOPHILS /100 LEUKOCYTES IN BLOOD BY AUTOMATED COUNT 1.1 0.4 - 6.8 09/17 Specimen Type: BLOOD No comment entered. Ordering Provider: JOSHUA ESTEBAN Report Released Date/Time: March 19, 2023 04:54 PM Reporting Lab: [facility] [place] [facility] [address] [facility] [address] Performing Lab: [facility] [place] [facility] [address] [place] [address] [facility] [place] CBC AND DIFF (AUTO) BASOPHILS/1 00 LEUKOCYTES IN BLOOD BY AUTOMATED COUNT 0.5 0.1 - 2.0 09/17 Specimen Type: BLOOD No comment entered. Ordering Provider: JOSHUA ESTEBAN Report Released Date/Time: March 19, 2023 04:54 PM Reporting Lab: [facility] [place] [facility] [address] [facility] [address] Performing Lab: [facility] [place] [facility] [address] [place] [address] [facility] CBC AND DIFF (AUTO) NEUTROPHILS [#/VOLUME] IN BLOOD BY AUTOMATED COUNT 8.91 10*3/u L 2.20 - 7.60 09/17 H Specimen Type: BLOOD No comment entered. Ordering Provider: JOSHUA ESTEBAN Report Released Date/Time: March 19, 2023 04:54 PM Reporting Lab: [facility] [place] [facility] [address] [facility] [address] Performing Lab: [facility] [place] [address] [address] [facility] [place] [facility] CBC AND DIFF (AUTO) LYMPHOCYTES [#/VOLUME] IN BLOOD BY AUTOMATED COUNT 1.62 10*3/u L 1.00 - 3.20 09/17 Specimen Type: BLOOD No comment entered. Ordering Provider: JOSHUA ESTEBAN Report Released Date/Time: March 19, 2023 04:54 PM Reporting Lab: [facility] [place] [address] [address] Performing Lab: [facility] [place] [address] [address] [facility] [place] [facility] CBC AND DIFF (AUTO) EOSINOPHILS [#/VOLUME] IN BLOOD BY AUTOMATED COUNT 0.13 10*3/u L 0.03 - 0.44 09/17 Specimen Type: BLOOD No comment entered. Ordering Provider: JOSHUA ESTEBAN Report Released Date/Time: March 19, 2023 04:54 PM Reporting Lab: [facility] [place] [address] [address] Performing Lab: [facility] [place] [address] [address] [facility] [place] [facility] CBC AND DIFF (AUTO) BASOPHILS [#/VOLUME] IN BLOOD BY AUTOMATED COUNT 0.06 10*3/u L 0.01 - 0.13 09/17 Specimen Type: BLOOD No comment entered. Ordering Provider: JOSHUA ESTEBAN Report Released Date/Time: March 19, 2023 04:54 PM Reporting Lab: [facility] [place] [address] [address] Performing Lab: [facility] [place] [facility] [address] [facility] [address] [facility] CBC AND DIFF (AUTO) IMMATURE GRANULOCYTE S/100 LEUKOCYTES IN BLOOD BY AUTOMATED COUNT 0.3 0.0 - 0.7 09/17 Specimen Type: BLOOD No comment entered. Ordering Provider: JOSHUA ESTEBAN Report Released Date/Time: March 19, 2023 04:54 PM Reporting Lab: [facility] [address] [facility] [address] Performing Lab: [facility] [address] [facility] [address] [facility] CBC AND DIFF (AUTO) IMMATURE GRANULOCYTE S [#/VOLUME] IN BLOOD 0.04 10*3/u L 0.00 - 0.06 09/17 Specimen Type: BLOOD No comment entered. Ordering Provider: JOSHUA ESTEBAN Report Released Date/Time: March 19, 2023 04:54 PM Reporting Lab: [facility] [address] [facility] [address] Performing Lab: [address] [address] [facility] Encounters Combined list of: 1) Encounters from Department of Veterans Affairs facilities going back up to thelast 18 months. 2) Encounters from the Department of Defense facilities going back up to 280 months. Location Location Details Encounter Type Encounter Number Reason For Visit Attending Provider ADM Date DC Date Status Disposition Source [place]) OUTPATIENT [id number] Notes Entered by: CHERIE GONZALES 28 Jul 2013 1407 ------- ------- ------- ------- -- Hearing test CHERIE GONZALES 07/28 [place]ased w/o Limitations [place] [place] [place] OUTPATIENT [id number] SHUBHAM MAK 07/29 Released w/o Limitations [place] [facility] [id number] Notes Entered by: Christina MCKEON 30 Jul 2013 1007 ------- ------- ------- ------- -- IMM TATIANNA REEVESMARPerez Meier 07/30 [place]ased [place]/o Limitations [place] p[facility] ) [place] [facility] [id number] Notes Entered by: MADELINE MEDELLIN 24 Aug 2013 0701 ------- ------- ------- ------- -- ORTHO- HAND MILLY DIAZ 08/24 Released with Work/Duty Limitations [place] [facility] [place] [id number] Notes Entered by: RODRIGUE NOBLES 13 Sep 2013 0826 ------- ------- ------- ------- -- IMM-ZAKIA SNYDER 09/13 Released w/o Limitations [place]) [place] [facility] [place] [id number] Notes Entered by: RODRIGUE NOBLES 01 Oct 2013 0702 ------- ------- ------- ------- -- DERM ZAKIA Bella 10/01 Released w/o Limitations [place]) [place] Bldg [address]) OUTPATIENT [id number] Notes Entered by: AMANDA HUGHES 30 Dec 2018 0843 ------- ------- ------- ------- -- ALEC RENDON 12/30 Released w/o Limitations Raudel Lina[place] Bldg [address]) Theater Facility OUTPATIENT [id number] Theater Provider 05/08 Released w/o Limitations [facility] OUTPATIENT [id number] Theater Provider 05/09 Released w/o Limitations [facility] OUTPATIENT [id number] Theater Provider 05/12 Released w/o Limitations [facility] OUTPATIENT [id number] Theater Provider 05/23 Released w/o Limitations [facility] OUTPATIENT [id number] Theater Provider 05/24 Released w/o Limitations [facility] OUTPATIENT [id number] Theater Provider 06/28 Released w/o Limitations [facility] OUTPATIENT [id number] Theater Provider 07/03 Released with Work/Duty Limitations [facility] OUTPATIENT [id number] Theater Provider 07/08 Released w/o Limitations [facility] OUTPATIENT [id number] 2 Theater Provider 07/09 Released w/o Limitations [facility] OUTPATIENT [id number] 0 Theater Provider 07/29 Released w/o Limitations [facility] OUTPATIENT [id number] 7 Theater Provider 08/07 Released w/o Limitations [facility] OUTPATIENT [id number] 3 Theater Provider 08/15 Released w/o Limitations [facility] OUTPATIENT [id number] 3 Theater Provider 08/28 Released w/o Limitations [facility] OUTPATIENT [id number] 8 Theater Provider 08/28 Released with Work/Duty Limitations [facility] OUTPATIENT [id number] 2 Theater Provider 09/01 Released w/o Limitations [facility] OUTPATIENT [id number] 1 Theater Provider 09/10 Released w/o Limitations [facility] OUTPATIENT [id number] 5 Theater Provider 09/15 Sick at Home/Quarter s Theater [facility] Theater Facility OUTPATIENT [id number] 3 Theater Provider 09/16 [facility] at Home[facility]Quarter [facility] OUTPATIENT [id number] 5 Theater Provider 09/17 Sick at Home/Quarter s [facility] OUTPATIENT [id number] 4 Theater Provider 10/09 Released w/o Limitations Theater Facilit y [place] [address]) OUTPATIENT [id number] Notes Entered by: SARAI MARQUEZ 25 Nov 2019 1127 ------- ------- ------- ------- -- ELMER SOARES 11/25 Released w/o Limitations [place] [address]) [place] Hearing Conservat ion) OUTPATIENT [id number] Notes Entered by: CAM HU I 25 Nov 2019 1240 ------- ------- ------- ------- -- POST JADE HO I 11/25 Released w/o Limitations [place] Hearing Conserv ation) [place] Physical Exam Clinic) OUTPATIENT [id number] Notes Entered by: ASAD STEEL 25 Nov 2019 1305 ------- ------- ------- ------- -- HERMAN 638 SELENA REDDY 11/25 Released w/o Limitations [place] Physica l Exam Clinic) [place] Outpatient Encounter [id number] Diagnos is: ICD-10- CM F43.12 Post-tr aumatic stress disorde r, chronic
ST TYRA GABRIEL 06/16 [facility] OFFICE O/P EST LOW 20-29 MIN [id number] Diagnos is: ICD-10- CM M54.59 Other low back pain
GAUNYA,CHR ISTOPHER M 06/23 [facility] En[facility] [id number] 06/24 [facility] [place] POS AIRWAY PRESSURE CPAP [id number] Diagnos is: ICD-10- CM G47.30 Sleep apnea, unspeci fied
ST AMTYSON,TONIE E P 06/26 [facility] En[facility] [id number] 07/11 [facility] [place] Out[facility] Encounter [id number] 09/05 [facility] [place] [facility] [facility] OFFICE O/P EST MOD 30-39 MIN [id number] Diagnos is: ICD-10- CM M54.59 Other low back pain
Zaheer ESTEBAN 09/17 [facility] [place] Out[facility] Encounter [id number] 09/19 [facility] Encounter [id number] 09/24 [facility] [place] [place] Encounter [id number] 09/26 [facility] [place] [place] Encounter [id number] 09/26 [facility] [place] [place] Out[facility] Encounter [id number] 09/26 [facility] Encounter [id number] 09/30 [facility] [place] Encounter [id number] 10/02 [facility] [place] [place] Outpatient Encounter [id number] 10/06 [facility] OFFICE O/P EST HI 40-54 MIN [id number] Diagnos is: ICD-10- CM F43.12 Post-tr aumatic stress disorde r, chronic
ST STEFANI GABRIELEN G 10/13 [place] [facility] Encounter [id number] 11/03 [facility] [place] Out[facility] Encounter [id number] [facility] [id number] Diagnos is: ICD-10- CM F43.12 Post-tr aumatic stress disorde r, chronic
ST HARVEY EPHEN G 12/18 [place] [facility] Encounter [id number] 12/22 [facility] Encounter [id number] 02/11 [facility] Out[facility] Encounter [id number] 02/19 [facility] OFF[facility] O/P NEW LOW 30 MIN [id number] Diagnos is: ICD-10- CM G47.33 Obstruc tive sleep apnea (adult) (pediat sarah)
MAXWELL CERON, CTORIA J 02/22 [facility] En[facility] [id number] 02/22 [facility] Encounter [id number] 03/26 [facility] [place] [facility] [place] Outpatient Encounter [id number] 03/29 [place] OFFICE O/P EST HI 40 MIN [id number] Diagnos is: ICD-10- CM F43.12 Post-tr aumatic stress disorde r, chronic
ST TYRA GABRIEL G 04/01 [place] [facility] [place] [facility] Outpatient Encounter [id number] 04/23 [facility] [place] [facility] [place] [facility] ORAL DEVICE/RODDY LIANCE CUSFAB [id number] Diagnos is: ICD-10- CM G47.33 Obstruc tive sleep apnea (adult) (pediat sarah)
MAXWELL CERON,PRISCA CTORIA J 04/26 [facility] En[facility] [id number] 06/01 [facility] OFF[facility] O/P EST LOW 20 MIN [id number] Diagnos is: ICD-10- CM G47.33 Obstruc tive sleep apnea (adult) (pediat sarah)
MAXWELL CERON, CTORIA J 06/02 [facility] En[facility] [id number] 07/12 [facility] OFF[facility] O/P EST LOW 20 MIN [id number] Diagnos is: ICD-10- CM G47.33 Obstruc tive sleep apnea (adult) (pediat sarah)
PRISCA KEYES CTORIA J 07/13 [facility] [place] OFFICE O/P EST LOW 20 MIN [id number] Diagnos is: ICD-10- CM G47.33 Obstruc tive sleep apnea (adult) (pediat sarah)
PRISCA KEYES CTORIA J 07/14 [facility] [place] [place] [facility] En[facility] [id number] 07/15 [facility] Encounter [id number] 07/26 [facility] [place] [facility] OFF[facility] O/P EST LOW 20 MIN [id number] Diagnos is: ICD-10- CM G47.33 Obstruc tive sleep apnea (adult) (pediat sarah)
PRISCA KEYES CTORIA J 07/27 [facility] [place] [facility] [place] [facility] Outpatient Encounter [id number] 07/29 [facility] [place] OFFICE O/P EST MOD 30 MIN [id number] Diagnos is: ICD-10- CM F43.12 Post-tr aumatic stress disorde r, chronic
ST TRYA GABRIEL G 08/05 [place] [facility] [id number] 1.09/21 [facility] Encounter [id number] 1.09/24 [facility] Encounter [id number] 1.10/06 [facility] Encounter [id number] 1.10/08 [facility] OFFICE O/P EST MOD 30 MIN [id number] Diagnos is: ICD-10- CM F43.12 Post-tr aumatic stress disorde r, chronic
ST TYRA GABRIEL G 10/11 [facility] [place] [facility] COMPREHENS VE ORAL EVALUATION [id number] 1. Diagnos is: ICD-10- CM G47.33 Obstruc tive sleep apnea (adult) (pediat sarah)
PRISCA KEYES CTORIA J 10/11 [facility] En[facility] [id number] 10/26 [facility] [place] CASE MGMT-ORAL HEALTH LIT [id number] Diagnos is: ICD-10- CM K03.6 Deposit s [accret ions] on teeth<b r/> JOHNNA RODRIGUEZ 10/27 [facility] [place] [facility] [place] OFFICE O/P EST LOW 20 MIN [id number] Diagnos is: ICD-10- CM G47.33 Obstruc tive sleep apnea (adult) (pediat sarah)
JHOANPRISCA BENSON CTORIA J 11/02 [facility] [place] [facility] Outpatient Encounter [id number]/[id number] [facility] [place] [facility] [place] [facility] Outpatient Encounter [id number]/[id number] [facility] [place] [facility] [place] SYNCH AUDIO-ONLY EST LOW 20 [id number] Diagnos is: ICD-10- CM F43.12 Post-tr aumatic stress disorde r, chronic
GABRIELST KOHANNAH G 12/02 [place] [facility] [place] [facility] Outpatient Encounter [id number] 12/02 [facility] [place] [facility] Procedures Combined list of: 1) Procedures from Department of Veterans Affairs facilities going back up to thelast 18 months, not all VA non-surgical procedures are included; 2) All procedures from the Department of Defense facilities. Procedure Procedure Type Code Date Perfomer Comments Sourc e PATIENT EDUCATION, NOT OTHERWISE CLASSIFIED, NON-PHYSICIAN PROVIDER, GROUP, PER SESSION [facility] SCREENING TEST OF VISUAL ACUITY, QUANTITATIVE, BILATERAL [facility] TYPHOID VACCINE, CAPSULAR POLYSACCHARIDE (VICPS), FOR INTRAMUSCULAR USE [facility] SCREENING TEST OF VISUAL ACUITY, QUANTITATIVE, BILATERAL [facility] HEPATITIS A AND HEPATITIS B VACCINE (HEPA-HEPB), ADULT DOSAGE, FOR INTRAMUSCULAR USE [facility] ADENOVIRUS VACCINE, TYPE 7, LIVE, FOR ORAL USE [facility] FITTING OF SPECTACLES, EXCEPT FOR APHAKIA; MONOFOCAL [facility] EAR MOLD/INSERT, NOT DISPOSABLE, ANY TYPE [facility] Screening Test Of Visual Acuity, Quantitative, Bilateral Screening Test Of Visual Acuity, Quantitative, Bilateral [id number] [id number] ALEC MEYERS [facility] Hepatitis A And Hepatitis B (Intramuscular Use) Adult Dosage Hepatitis A And Hepatitis B (Intramuscular Use) Adult Dosage 29357 ZAKIA LAM DoD Immunization Administration By Injection, One Vaccine Immunization Administration By Injection, One Vaccine 85270 ZAKIA LAM [facility] Vaccines Adenovirus Type 7 Live, For Oral Use Vaccines Adenovirus Type 7 Live, For Oral Use 54208 ROBERT REEVES A single vaccine dose adminstered orally. [facility] Vaccines Adenovirus Type 4 Live, For Oral Use Vaccines Adenovirus Type 4 Live, For Oral Use 73686 ROBERT REEVES A single vaccine dose adminstered orally. DoD Immunization Admin Intranasal / Oral Each Additional Vaccine Immunization Admin Intranasal / Oral Each Additional Vaccine 60154 ROBERT REEVES Influenza Virus Vaccine Intranasal Live Attenuated Influenza Virus Vaccine Intranasal Live Attenuated 82321 ROBERT REEVES Flumist: Each sprayer contains a single dose of Flumist; approximately one-half of the contents was administered into each nostril. Patient was observed for 15 min with no adverse reactions. DoD Immunization Admin By Intranasal / Oral Route One Vaccine Immunization Admin By Intranasal / Oral Route One Vaccine 79299 ROBERT REEVES DoD Immunization Administration By Injection, Each Additional Vaccine Immunization Administration By Injection, Each Additional Vaccine 04854 ROBERT REEVES DoD Physician Supervised Injection Intramuscular Antibiotic Physician Supervised Injection Intramuscular Antibiotic 53556 ROBERT REEVES [facility] Tdap Vaccine Tdap Vaccine 30268 ROBERT REEVES Visit for an IM injection of 0.5mL of Boostrix (Tetanus and Diphtheria Toxoids and Acellular Pertussis). Was given in the Right Deltoid. Patient was observed for 15 min with no adverse reactions. [facility] Meningococcal Polysaccharide Diphtheria Toxoid Conjugate Vaccine ROBERT REEVES Visit for an IM injection of 0.5mL of Meningococcal Vaccine (Menactra). Was given in the Left Deltoid. Patient was observed for 15 min with no adverse reactions. [facility] Vaccines Viral Polio, Inactivated Vaccines Viral Polio, Inactivated 98937 ROBERT REEVES Visit for an IM injection of 0.5mL of IPOL (Poliovirus Vaccine Inactivated). Was given in the Right Deltoid. Patient was observed for 15 min with no adverse reactions. [facility] Hepatitis A And Hepatitis B (Intramuscular Use) Adult Dosage Hepatitis A And Hepatitis B (Intramuscular Use) Adult Dosage 32413 ROBERT REEVES Visit for an IM injection of 1mL of Twinrix (Hepatitis A and B combination). Was given in the Right Deltoid. Patient was observed for 15 min with no adverse reactions. [facility] Injection, penicillin g benzathine, 100,000 units ROBERT REEVES Visit for an IM injection of 1.2 million/units per 2 mL of Bicillin L-A (Penicillin G Benxathine injectable suspension). Was given in the Left upper quadrant, left buttock. Patient was observed for 15 min with no adverse reactions. [facility] Skin Test Anergy Tuberculin Intradermal Skin Test Anergy Tuberculin Intradermal [id number] ROBERT REEVES Visit for intradermal tuberculin testing of 0.1mL of Mantoux (Tuberculin Purified Protein Derivative). Was given in the Left forearm, volar surface. Patient was observed for 15 min with no adverse reactions. [facility] [employer] Fitting Monofocal Except For Aphakia Spectacles Services Fitting Monofocal Except For Aphakia [id number] AVI ROSAS Determination Of Refractive State Determination Of Refractive State [id number] AVI ROSAS Ophthalmological New Patient Start Comprehensive Care Ophthalmological New Patient Start Comprehensive Care [id number] AVI ROSAS Ear mold/insert, not disposable, any type CHERIE GONZALES Physician [facility] Physician [facility] [id number] CHERIE GONZALES [facility] Testing [id number] CHERIE GONZALES [facility] Screening Test Of Visual Acuity, Quantitative, Bilateral Screening Test Of Visual Acuity, Quantitative, Bilateral [id number] ELMER BETANCUR [facility] Threshold Audiogram (Pure Tone) Automated Threshold Audiogram (Pure Tone) Automated 0208T RIKKI CORBIN [facility] Patient education, not otherwise cla ified, non-physician provider, group, per se ion RIKKI CORBIN [facility] Social History Combined list of available smoking, tobacco, and other social history from Department of Defense and Veterans Affairs facilities. Social History Type Response Date Comment Sourc e Tobacco smoking status NHIS VA-TOBACCO NEVER USED 11/20/2022 [facility] D History of tobacco use VA-TOBACCO NEVER USED 11/26/2021 [facility] D History of tobacco use VA-TOBACCO NEVER USED 04/21/2020 [facility] [place] [facility] This section is an empty social history section. [facility] Plan of Care List of future care activities from Department of Veterans Affairs facilities. Additional future care activities may be listed in the Assessment and Plan section. Date/Time Care Activity Care Activity Detail Facili 12/23/2024 AMBULATORY - MEDICINE AMBULATORY - MEDICI NE [facility] [place] [facility] 12/23/2024 AMBULATORY - MEDICINE AMBULATORY - MEDICI NE [facility] [place] [facility] 12/30/2024 AMBULATORY - NONE AMBULATORY - NONE [facility] [place] [facility] 01/20/2025 AMBULATORY - PSYCHIATRY [facility] [place] 04/12/2025 AMBULATORY - MEDICINE AMBULATORY - MEDICI NE [facility] [place] [facility] 04/26/2025 AMBULATORY - NONE AMBULATORY - NONE [facility] [place] [facility] 11/02/2024 Consult Order COMMUNITY CARE-D ENTAL SPECIALTY Cons Blood Bank Booking Clerk's Choice [place] [facility] [place] [facility] 11/02/2024 Consult Order HOME SLEEP STUDY NOX/SPOPC OUTPT Cons Blood Bank Booking Clerk's Choice [place] 12/02/2024 Consult Order COMMUNITY CARE-B H PSYCHOTHERAPY Cons Blood Bank Booking Clerk's Choice [place] [facility] [place] [facility]
--- OUTSIDE RECORDS SUMMARY | 2024-12-07 17:18 | XMS_ITS | Encounter Summary ---
Author Name [facility] [place] [facility] [place] Address [address] [place] [address] Support Name Relationship Address Phone LEIGHTON ALLEN Next of Kin [address] [place] [address] LEIGHTON ALLEN Emergency Contact [address] [place] [address] Care Team Providers Care Resident Director Name Role Phone YVONNE ESTEBAN Primary Care [...] [facility] DEPT OF COR Aug 17, 2020 [id number] [id number] [phone] ALLEN,CAR LOS PATIENT BCBS [place] (BLUE CARD) PREFERRED PROVIDER ORGANIZAT ION (PPO) [facility] OF [facility] DEPT OF COR Aug 17, 2020 [id number] ALLEN,CAR LOS PATIENT [facility]EM[facility] PRESCRIPT [facility] Aug 17, 2020 [id number] [phone] ALLEN,CAR LOS PATIENT [facility] PRESCRIPT ION [facility] Aug 17, 2020 [id number] [phone] ALLEN,CAR LOS PATIENT Selected Encounter This section includes the information on record at [place] for the Encounter. Date/Time Encounter Type Encounter Description Reason Pro vider Source Nov 08, 2024 02:08 PM Outpatient Encounter PHYSICAL THERAPY IHE Encounter Template Text not used by [place] Plan of Treatment: Future Appointments (+ 6 months) and Future Tests (+/- 45 days) The Plan of Treatment section includes future care activities for the patient from all [place] treatmentfacilities. This section includes future appointments and future orders which are active, pending or scheduled. Future Appointments This section includes appointments that were scheduled to occur 6 months from the date of the Encounter, up to a maximum of 20 appointments. The data comes from all [place] treatment facilities. Appointment Date/Time Appointment Type Appointme nt Facility Name Nov 22, 2024 03:30 PM AMBULATORY - MEDICINE [place] [facility] [place] [facility] Dec 02, 2024 09:00 AM AMBULATORY - PSYCHIATRY [facility] Dec 30, 2024 10:30 AM AMBULATORY - NONE [place] [facility] [place] [facility] Jan 27, 2025 09:30 AM AMBULATORY - MEDICINE [facility] April 12, 2025 09:30 AM AMBULATORY - MEDICINE [place] [facility] [place] [facility] Apr 26, 2025 03:00 PM AMBULATORY - NONE [facility] Active, Pending, and Scheduled Orders This section includes a listing of several types of active, pending, and scheduled orders, including clinic medications orders, diagnostic test orders, procedure orders and consult orders; where the start date of the order is 45 days before the date of the Encounter or 45 days after the date of theEncounter. The data comes from all [place] treatment [facility]. Test Date/Time Test Type Test Details Facility Name Nov 02, 2024 02:06 PM Consult Order COMMUNITY CARE-DENTAL SPECIALTY Cons Fork Repairer's Choice [facility] [place] [facility] Nov 02, 2024 05:07 PM Consult Order HOME SLEEP STUDY NOX/SPOPC OUTPT Cons Fork Repairer's Choice [facility] Social History: Smoking Status (Most current) and Tobacco Use (All prior to encounter date) This section includes the most current, and the historical, smoking and tobacco- related health factors from the [place] facility where the Encounter took place. Current Smoking Status This section includes the most current smoking, or tobacco-related health factor, from the [place] facility where the Encounter took place. Date/Time Current Smoking Status Comment Facil juanis Apr 21, 2020 02:14 PM VA-TOBACCO NEVER USED [facility] [place] [facility] Encounter Notes: All associated encounter notes This section contains the clinical notes associated to the Encounter. Date/Time Encounter Note(s) Provider Source Nov 08, 2024 02:08 PM ADMINISTRATIVE NOT E: LOCAL TITLE: ADMINISTRATIVE NOTE STANDARD TITLE: ADMINISTRATIVE NOTE DATE OF NOTE: NOV 08, 2024@14:08 ENTRY DATE: NOV 08, 2024@14:08:15 AUTHOR: AMY MEDINA COSIGNER: URGENCY: STATUS: COMPLETED [place] sent a secure message requesting a new traction unit. [employer] Guajardo Lumbar Home Traction Device Item #[id number] Catalog #[id number] /es/ AMY MEDINA Signed: 11/08/2024 14:09 Receipt Acknowledged By: 11/12/2024 09:24 /es/ MIGUELITO BARBA DPT Physical Therapist AMY MEDINAFIELD
--- OUTSIDE RECORDS SUMMARY | 2024-12-07 17:18 | XMS_ITS | Encounter Summary ---
Author Name [facility] [place] Address [address] [place] [address] Support Name Relationship Address Phone LEIGHTON ALLEN Next of [place] [address] [address] LEIGHTON ALLEN Emergency Contact [address] [place] [address] Care Team Providers Care Work Order Detailer Name Role Phone CORINNA SEVILLA Primary Care Provider Unavailab le Insurance Providers: All historical and current Section [...] Relationship to Policy Gloria JULIANNA BCBS OF [place] POINT OF SERVICE [facility] DEPT OF COR Aug 17, 2020 [id number] [phone] ALLEN,CAR LOS PATIENT BCBS [place] (BLUE CARD) PREFERRED PROVIDER ORGANIZAT ION (PPO) ST [facility] DEPT OF COR Aug 17, 2020 [id number] [id number] ALLEN,CAR LOS PATIENT CAREMARK PRESCRIPT ION [facility] Aug 17, 2020 [id number] [phone] ALLEN,CAR LOS PATIENT [place] PRESCRIPT ION [facility] Aug 17, 2020 [id number] [phone] ALLEN,CAR LOS PATIENT Selected Encounter This section includes the information on record at [place] for the Encounter. Date/Time Encounter Type Encounter Description Reason Pro vider Source IHE Encounter Template Text not used by [place]
--- OUTSIDE RECORDS SUMMARY | 2024-12-07 17:18 | XMS_ITS | Encounter Summary ---
Author Name [facility] [place] [facility] [place] Address [address] [place] [address] Support Name Relationship Address Phone LEIGHTON ALLEN Next of Kin [address] [address] LEIGHTON ALLEN Emergency Contact [address] [place] [address] Care Team Providers Care Farmworker Name Role Phone CORINNA SEVILLA Primary Care [...] CT DEPT OF COR Aug 17, 2020 [id number] [id number] ALLEN,CAR LOS PATIENT BCBS [place] ([place] CARD) PREFERRED PROVIDER ORGANIZAT ION (PPO) ST OF [facility] DEPT OF COR Aug 17, 2020 [id number] ALLEN,CAR LOS PATIENT CAREM[facility] PRESCRIPT [facility]ON [facility] Aug 17, 2020 [id number] [phone] ALLEN,CAR LOS PATIENT CAR[place] PRESCRIPT ION [facility] Aug 17, 2020 [id number] [phone] ALLEN,CAR LOS PATIENT Selected Encounter This section includes the information on record at [place] for the Encounter. Date/Time Encounter Type Encounter Description Reason Pro vider Source Nov 08, 2024 02:12 PM Outpatient Encounter PHYSICAL THERAPY IHE Encounter Template Text not used by [place] Plan of Treatment: Future Appointments (+ 6 months) and Future Tests (+/- 45 days) The Plan of Treatment section includes future care activities for the patient from all [place] [facility] This section includes future appointments and future [...] 22, 2024 03:30 PM AMBULATORY - MEDICINE [place] [facility] [place] [facility] Dec 23, 2024 09:00 AM AMBULATORY - MEDICINE [place] [facility] [place] [facility] Dec 23, 2024 09:01 AM AMBULATORY - MEDICINE [place] [facility] [place] [facility] Dec 30, 2024 10:30 AM AMBULATORY - NONE [place] [facility] [place] [facility] Jan 20, 2025 08:30 AM AMBULATORY - PSYCHIATRY [facility] April 12, 2025 09:30 AM AMBULATORY - MEDICINE [place] [facility] [place] [facility] Apr 26, 2025 03:00 PM AMBULATORY - NONE [place] [facility] [place] [facility] Active, Pending, and Scheduled Orders This section includes a listing of several types of active, pending, and scheduled orders, including clinic medications orders, diagnostic test orders, procedure orders and consult orders; where the start date of the order is 45 days before the date of the Encounter or 45 days after the date of theEncounter. The data comes from all [place] treatment [facility]. Test Date/Time Test Type Test Details Facility Name Nov 02, 2024 02:06 PM Consult Order COMMUNITY CARE-DENTAL SPECIALTY Cons Child Care Giver's Choice [place] [facility] [place] [facility] Nov 02, 2024 05:07 PM Consult Order HOME SLEEP STUDY NOX/SPOPC OUTPT Cons Child Care Giver's Choice [facility] Dec 02, 2024 09:37 AM Consult Order COMMUNITY CARE-BH PSYCHOTHERAPY Cons Child Care Giver's Choice [place] [facility] [place] [facility] Social History: Smoking Status (Most current) [...] VA-TOBACCO NEVER USED [facility] [place] [facility] Encounter Notes: All associated encounter notes This section contains the clinical notes associated to the Encounter. Date/Time Encounter Note(s) Provider Source Dec 03, 2024 09:43 AM PHYSICAL MEDICINE REHAB SECURE MESSAGING: LOCAL TITLE: PHYSICAL THERAPY SECURE MESSAGING STANDARD TITLE: PHYSICAL MEDICINE REHAB SECURE MESSAGING DATE OF NOTE: DEC 03, 2024@09:43 ENTRY DATE: DEC 03, 2024@09:43:12 AUTHOR: JOSE BARBA COSIGNER: URGENCY: STATUS: COMPLETED ------Original Message --- Sent: 11/08/2024 02:20 PM ET From: AMY MEDINA To: DENISSE ALLEN Subject: General:Guajardo Lumbar Traction Device Can we schedule a quick visit for you to bring it in for the Physical therapist to evaluate? Katya Sharma ------Original Message --- Sent: 11/08/2024 02:22 PM ET From: DENISSE ALLEN To: PHYSICAL THERAPY_SPOPC! Subject: General:Guajardo Lumbar Traction Device Bring the machine? ------Original Message --- Sent: 11/08/2024 03:21 PM ET From: DENISSE ALLEN To: PHYSICAL THERAPY_SPOPC! Subject: General:Guajardo Lumbar Traction Device I can try and see, but I must warned it probably has rodent dropping. i really wouldn't want to, but if it's a requirement, then I will because I need it to stretch and open my back ------Original Message --- Sent: 11/12/2024 09:17 AM ET From: JOSE BARBA To: DENISSE ALLENEL Subject: General:Guajardo Lumbar Traction Device Hello, Yes I would like to take a peak at it before ordering a new one just to see what went wrong with it. Don't bring it in the clinic, leave it in the car and I will take a look at the device from the parking lot. Just call Katya and she will help get you scheduled. Our clinic phone number is [phone] Thanks so much, Jose ------Original Message --- Sent: 11/12/2024 09:25 AM ET From: ALLENDENISSE JERALD To: PHYSICAL THERAPY_SPO! Subject: General:Guajardo Lumbar Traction Device Good morning sir hope this message finds you well I've already discarded the device I was waiting for a reply from Katya but didn't receive it in time before I discarded it along with other things as it had mice dropping and a nest inside unfortunately ------Original Message --- Sent: 12/02/2024 03:39 PM ET From: KAUR CARRION To: ALLENDENISSE JERALD Subject: General:Guajardo Lumbar Traction Device Good afternoon Mr. Allen, We just spoke on the phone regarding this device. I have entered a prosthetics request to have a new traction unit mailed to your home. Please make sure going forward if it breaks you keep the device so we can assess it to see if it is something that can be fixed. Otherwise, we will not be able to replace this device again. Thanks let me know if you have any questions Sincerely, Kaur DAMICO /mercedes/ JOSE BARBA DPT Physical Therapist Signed: 12/03/2024 09:43 JOSE BARBA [facility] Nov 08, 2024 02:12 PM PHYSICAL MEDICINE REHAB SECURE MESSAGING: LOCAL TITLE: PHYSICAL THERAPY SECURE MESSAGING STANDARD TITLE: PHYSICAL MEDICINE REHAB SECURE MESSAGING DATE OF NOTE: NOV 08, 2024@14:12 ENTRY DATE: NOV 08, 2024@14:12:09 AUTHOR: AMY MEDINA COSIGNER: URGENCY: STATUS: COMPLETED ------Original Message --- Sent: 11/08/2024 01:37 PM ET From: DENISSE ALLEN To: PHYSICAL THERAPY_SPO! Subject: General:Guajardo Lumbar Traction Device Good morning. I require a replacement Guajardo Lumbar Traction Device; my previously issued device is malfunctioning. Can this be accommodated? Thank you for your time ------Original Message --- Sent: 11/08/2024 02:11 PM ET From: AMY MEDINA To: DENISSE ALLEN Subject: General:Guajardo Lumbar Traction Device Good afternoon, I sent a message to the Physical therapist requesting a replacement traction unit to be mailed to you. Happy HolidaysKatya /mercedes/ AMY MEDINA Signed: 11/08/2024 14:12 AMY MEDINA [facility]
--- OUTSIDE RECORDS SUMMARY | 2024-12-07 17:18 | XMS_ITS | Encounter Summary ---
Author Name [facility] [place] Address [address] [place] [address] Support Name Relationship Address Phone LEIGHTON ALLEN Next of Kin [address] [place] [address] LEIGHTON ALLEN Emergency Contact [address] [place] [address] Care Team Providers Care Inspector Subassemblies Name Role Phone CORINNA SEVILLA Primary Care [...] CT DEPT OF COR Aug 17, 2020 [id number] [phone] ALLEN,CAR LOS PATIENT BCBS [place] (BLUE CARD) PREFERRED PROVIDER ORGANIZAT ION (PPO) ST OF [facility] DEPT OF COR Aug 17, 2020 [id number] [phone] ALLEN,CAR LOS PATIENT [place]EM[facility] PRESCRIPT ION [facility] Aug 17, 2020 [id number] [phone] ALLEN,CAR LOS PATIENT CAR[place] PRESCRIPT ION [facility] Aug 17, 2020 [id number] [phone] ALLEN,CAR LOS PATIENT Selected Encounter This section includes the information on record at [place] for the Encounter. Date/Time Encounter Type Encounter Description Reason Pro vider Source Dec 02, 2024 03:30 PM Outpatient Encounter PHYSICAL THERAPY IHE Encounter Template Text not used by [place] Plan of Treatment: Future Appointments (+ 6 months) and Future Tests (+/- 45 days) The Plan of Treatment section includes future care activities for the patient from all [place] [facility] This section includes future appointments and future orders which are active, pending or scheduled. Future Appointments This section includes appointments that were scheduled to occur 6 months from the date of the Encounter, up to a maximum of 20 appointments. The data comes from all [place] treatment facilities. Appointment Date/Time Appointment Type Appointme nt Facility Name Dec 23, 2024 09:00 AM AMBULATORY - MEDICINE [place] [facility] [place] [facility] Dec 23, 2024 09:01 AM AMBULATORY - MEDICINE [place] [facility] [place] [facility] Dec 30, 2024 10:30 AM AMBULATORY - NONE [place] [facility] [place] [facility] Jan 20, 2025 08:30 AM AMBULATORY - PSYCHIATRY [facility] April 12, 2025 09:30 AM AMBULATORY - MEDICINE [place] [facility] [place] [facility] Apr 26, 2025 03:00 PM AMBULATORY - NONE [place] [facility] [place] [facility] Active, Pending, and Scheduled Orders [...] The data comes from all [place] treatment [facility]. Test Date/Time Test Type Test Details Facility Name Nov 02, 2024 02:06 PM Consult Order COMMUNITY CARE-DENTAL SPECIALTY Cons Supervisor Instrument Maintenance's [facility] [place] [facility] Nov 02, 2024 05:07 PM Consult Order HOME SLEEP STUDY NOX/SPOPC OUTPT Cons Supervisor Instrument Maintenance's Choice [facility] Dec 02, 2024 09:37 AM Consult Order COMMUNITY CARE-BH PSYCHOTHERAPY Cons Supervisor Instrument Maintenance's Choice [place] [facility] [place] [facility] Social History: Smoking Status (Most [...] Encounter. Date/Time Encounter Note(s) Provider Source Dec 02, 2024 03:30 PM PHYSICAL THERAPY N OTE: LOCAL TITLE: PHYSICAL THERAPY STANDARD TITLE: PHYSICAL THERAPY NOTE DATE OF NOTE: DEC 02, 2024@15:30 ENTRY DATE: DEC 02, 2024@15:31:15 AUTHOR: KAUR CARRION COSIGNER: URGENCY: STATUS: COMPLETED PT Note Dx: LBP Date 12/02/24 S/O/A/P: Pt has been contacting PT dept looking to obtain new traction unit. The one he was provided with he moved into his basement and he reports mice got into it and made a nest/dropping etc so he threw it out and he is looking for a new one. Traction unit was issued in 2020, states he was using it sparingly maybe a couple times/month prior to this happening. Contacted and informed him we would typically need to see the unit prior to issuing him a new one to ensure it can't be fixed, however, this is not possible. He apologized, this commercial lines underwriter discussed w/ prosthetics dept and they concurred to order new one/mail it to his home pending he is aware of use of it. Confirmed w/ based on records from PT in 2020 he can use it up to 100# of pull for upwards of 15-20min at a time multiple times/week. He agreed/acknowledged. Lumbar traction [facility] (offered in person appt as well but he reportedly felt comfortable w/ use of it) He was strongly advised to keep it in a safe area and in the event he needs a new one he needs to bring us the broken unit back so we can assess. No further PT is needed /mercedes/ KAUR CARRION, PT PHYSICAL THERAPIST Signed: 12/02/2024 15:36 KAUR CARRION [facility]
--- OUTSIDE RECORDS SUMMARY | 2024-12-07 17:18 | XMS_ITS | Encounter Summary ---
Author Name [facility] Organization [facility] [place] Address [address] [place] [address] Support Name Relationship Address Phone TIFFANY LEIGHTON Next of [place] [address] [place] [address] LEIGHTON ALLEN Emergency Contact [address] [place] [address] Care Team Providers Care Flight Nurse Name Role Phone CORINNA SEVILLA Primary Care Provider Unavail le Insurance Providers: All historical and current [...] [facility] Aug 17, 2020 [id number] ALLEN,CAR LOS PATIENT BCBS YOUSIF (BLUE CARD) PREFERRED PROVIDER ORGANIZAT ION (PPO) [facility] Aug 17, 2020 [id number] ALLEN,CAR LOS PATIENT CAREMARK PRESCRIPT ION [facility] Aug 17, 2020 [id number] ALLEN,CAR LOS PATIENT [facility]EMARK PRESCRIPT ION [facility] Aug 17, 2020 [id number] ALLEN,CAR LOS PATIENT Selected Encounter This section includes the information on record at [place] for the Encounter. Date/Time Encounter Type Encounter Description Reason Provider Source Dec 02, 2024 09:06 AM SYNCH AUDIO-ONLY EST LOW 20 TELEPHONE MH ICD-10-CM F43.12 Post-traumatic stress disorder, chronic ANTHONY GABRIEL Katie Encounter Template Text not used by [place] Assessments - Encounter Diagnoses This section includes the primary and secondary diagnoses documented for the Encounter. Date/Time Primary/Secondary Diagnosis Diagnosis Name Provider Source Dec 02, 2024 09:06 AM PRIMARY Post-traumatic stress disorder, chronic MIGUELITO GABRIEL [facility] Plan of Treatment: Future Appointments (+ 6 months) and Future Tests (+/- 45 days) The Plan of Treatment section includes future care activities for the patient from all [place] [facility]. This section includes future appointments and future orders which are active, pending or scheduled. Future Appointments This section includes appointments that were scheduled to occur 6 months from the date of the Encounter, up to a maximum of 20 appointments. The data comes from all [place] treatment facilities. Appointment Date/Time Appointment Type Appointme nt Facility Name Dec 23, 2024 09:00 AM AMBULATORY - MEDICINE [facility] [place] [facility] Dec 23, 2024 09:01 AM [facility]ORY [facility] [place] [facility] Dec 30, 2024 10:30 AM [facility] [place] [facility] Jan 20, 2025 08:30 AM AMBULATORY - PSYCHIATRY [facility] April 12, 2025 09:30 AM [facility]ORY [facility]IC[facility] [place] [facility] Apr 26, 2025 03:00 PM [facility] Active, Pending, and Scheduled Orders This section includes a listing of several types of active, pending, and scheduled orders, including clinic medications orders, diagnostic test orders, procedure orders and consult orders; where the start date of the order is 45 days before the date of the Encounter or 45 days after the date of theEncounter. The data comes from all [place] [facility]. Test Date/Time Test Type Test Details Facility Name Nov 02, 2024 02:06 PM Consult Order COMMUNITY CARE-DENTAL SPECIALTY Cons [facility] Worker's Choice [place] [facility] [place] [facility] Nov 02, 2024 05:07 PM Consult Order HOME SLEEP STUDY NOX/SPOPC OUTPT [facility] Worker's Choice [facility] Dec 02, 2024 09:37 AM Consult Order [facility]- PSYCHOTHERAPY Cons [facility] Worker's Choice [place] [facility] [place] [facility] Social History: Smoking Status (Most current) and Tobacco Use (All prior to encounter date) This section includes the most current, and the historical, smoking and tobacco- related health factors from the [place] facility where the Encounter took place. Current Smoking Status This section includes the most current smoking, or tobacco-related health factor, from the [place] facility where the Encounter took place. Date/Time Current Smoking Status Comment Facil ity Nov 20, 2022 01:00 PM VA-TOBACCO NEVER USED [facility] Tobacco Use History This section includes a history of the smoking, or tobacco-related health factors, that were collected on or before the date of the Encounter. The data comes from the [place] facility where the Encounter took place. Date/Time Smoking Status/Tobacco Use Comment F acility Nov 26, 2021 11:30 AM [place]-TOBACCO NEVER USED [facility] Encounter Notes: All associated encounter notes This section contains the clinical notes associated to the Encounter. 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 Again, he reports ongoing stressors, but again managable. As noted previously, pt again despite some ongoing symptoms, he [...] This is his stance on medication generally. Pt denies SI and violent ideation. Thoughts are well organized. Denies history of hallucinations. No paranoid or delusional content presented. Speech normal. Cognitive exam grossly normal. Has interests. Future oriented. Pleasant, talkative, good sense of humor. As noted previously, pt and his is main support; air defence officer in [place] system Pt previously reported decreased alcohol use (did not quantify), and he has not considered alcohol to be a problem. Denies street drugs Denies medication side effects. No daytime sedation. Reports compliance with Zoloft 25 mg daily. He again does not want higher dose Active problems - Computerized Problem List is the source for the followin. Exposure to potentially hazardous substance 2. Sleep apnea 3. Chronic Post-Traumatic Stress Disorder ([facility] [id number]) 4. Major depressive disorder 5. Comanagement 6. Chronic back pain 7. Migraine 8. 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 prozac [...] denied suicidal and violent ideation, but the [employer] Crisis [employer] information and number were reviewed [...] seeing therapist -- Ariane for couples therapy -- again, pt feels this helps. I again reviewed evidenced based psychotherapies for ptsd w pt. I offered him a therapist within the [facility], but the patient declines at this point, he will call if he changes his mind. But he is interested in [facility] therapy referal - will submit consult. Patient may also consider a therapist through [...] profile As noted last appointment, hydroxyzine was previously discontinued, patient taking amitriptyline low-dose 10-20 mg qhs from neuro for headaches from outside provider. Reviewed the risk of drug interaction between [...] has dental device return to clinic in 1- 2 mo for medication check. I encouraged [...] /mercedes/ MIGUELITO GABRIEL MD STAFF PSYCHIATRIST Signed: 12/02/2024 09:37 MIGUELITO GABRIEL [facility] Dec 02, 2024 09:06 AM MENTAL HEALTH TELE PHONE ENCOUNTER NOTE: LOCAL TITLE: TELEPHONE NOTE/MENTAL HEALTH STANDARD TITLE: MENTAL HEALTH TELEPHONE ENCOUNTER NOTE DATE OF NOTE: DEC 02, 2024@09:06 ENTRY DATE: DEC 02, 2024@09:07 AUTHOR: MIGUELITO GABRIEL EXP COSIGNER: URGENCY: STATUS: COMPLETED TELEPHONE NOTE/MENTAL HEALTH Has ADDENDA Telephone note 20-30 min for encounter, pt agrees to phone encounter when vvc not work for him chart reviewed see my 05/26/20 note for more hx Patient relatively stable, with usual presentation today. Again, he reports ongoing stressors, but again managable. As noted previously, pt again despite some ongoing symptoms, he [...] This is his stance on medication generally. Pt denies SI and violent ideation. Thoughts are well organized. Denies history of hallucinations. No paranoid or delusional content presented. Speech normal. Cognitive exam grossly normal. Has interests. Future oriented. Pleasant, talkative, good sense of humor. As noted previously, pt and his is main support; air defence officer in [place] Pt previously reported decreased alcohol use (did not quantify), and he has not considered alcohol to be a problem. Denies street drugs Denies medication side effects. No daytime sedation. Reports compliance with Zoloft 25 mg daily. He again does not want higher dose Active problems - Computerized Problem List is the source for the followin. Exposure to potentially hazardous substance 2. Sleep apnea 3. Chronic Post-Traumatic Stress Disorder ([facility] [id number]) 4. Major depressive disorder 5. Comanagement 6. Chronic back pain 7. Migraine 8. 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 prozac [...] seeing therapist -- Ariane for couples therapy -- again, pt feels this helps. I again reviewed evidenced based psychotherapies for ptsd w pt. I offered [facility] a therapist within [facility], but the patient declines at this point, he will call if he changes his mind. But he is interested in CC therapy referal - will submit consult. Patient may also consider a therapist through the t center. CONTINUE ZOLOFT 25 MG DAILY for [...] profile As noted last appointment, hydroxyzine was previously discontinued, patient taking amitriptyline low-dose 10-20 mg qhs from neuro for headaches from outside provider. Reviewed the risk of drug interaction between [...] has dental device return to clinic in 1- 2 mo for medication check. I encouraged [...] this [facility] (local) and dispensed from another [place] or [facility] facility (remote) as well as inpatient orders [...] whether with a VA or non-VA provider. /aaron GABRIEL MD STAFF PSYCHIATRIST Signed: 12/02/2024 09:37 12/02/2024 ADDENDUM STATUS: COMPLETED Will forward to AMSA's: Please see return to clinic order And Please cancel the VVC appointment for today, patient requested change to phone encounter, which I already created /mercedes/ MIGUELITO GABRIEL MD STAFF PSYCHIATRIST Signed: 12/02/2024 09:38 Receipt Acknowledged By: * AWAITING SIGNATURE * MAKENZIE MCCARTHY STEPHEN G [place]
--- OUTSIDE RECORDS SUMMARY | 2024-12-07 17:19 | XMS_ITS | Data Portability ---
Author Organization [place] [facility] Shayan Sánchez AONE [place] Address [address] [place] [address] Care Team Providers Care Furniture Builder Name Role Phone CITLALI KENNEY Primary Care Provider CITLALI KENNEY Referring Provider SABA KWOK Anesthesiologist Assistant Assessment Encounter Date Assessment Date Assessment LastModified [...] examination, tests/diagnosti c imaging, and treatment plan [email or web address] Not available 10/28/2024 09:40:50 Plan of Treatment Reminders Order Date Submit Date Provider Last Modified By Organization Details Last Modified Time Details Appointments WC RESULT 2024 09:15A M Almita Thompson MD Not available Not available Not available Lab None recorded. Referral None recorded. Procedures None recorded. Surgeries None recorded. Imaging XR, ankle, 3 or more view 2023 024 [email or web address] [facility], [address], [place], [address], 10/28/2024 10:36:43 XR, foot, 2 view 2023 024 [email or web address] [facility], [address], [address], [place], [address], 10/28/2024 10:36:43 MRI, foot, w/o contrast - Rule out edema in the fourth and fifth metatarsa ls, rule out occult fracture, work injury 4 months ago, failed conservat vaughn care 2023 024 [facility] Not available 12/06/2024 15:29:06 Medication Orders None recorded. Patient TargetsNo targets recorded. Patient Instructions Encounter Date Encounter Id Patient Instructions Last Modified By Organization Details Last Modified Time 10/28/2024 [id number] Weightbearing x-rays of the left foot and ankle were obtained on 10/28/2024 which is negative for acute fracture. No evidence of periosteal stress reaction. No widening of the Lisfranc complex. [email or web address] Not available 10/28/2024 09:41:08 Reason for Referral None Reported. Results Created Date Observation Date Name Description Value Unit Range Abnormal Flag Note LastModifiedBy Organization Detail LastModifiedTime 12/06/1912/06/2024 MRI, foot, w/o contr ast No observ ation record ed. snarus Not Available 2024 15:29:06 Result Notes None recorded. Procedures Surgical History None recorded. Imaging Results Imaging Date Name Status LastModified by Organiz ation Details LastModified Time 12/06/2024 MRI, foot, w/o contrast active snarus Information not available 12/06/2024 15:29:06 Procedure Notes None recorded. Medical Equipment None Reported. Medications Name Sig Start Date Stop Date Status Note LastModified by Organization Details LastModified Time doxycycline hyclate 100 mg capsule active Not Available Not Available N ot Available azithromycin 250 mg tablet TAKE 2 TABLETS [...] active Not Available Not Available Not Available diclofenac sodium 50 mg tablet,delay ed release active Not Available Not Available N ot Available scopolamine 1 mg over 3 days [...] Updated DateTime 10/28/2024 180.34 cm 39.1 kg/m2 655593.86 g ADAMA STEINBERG PA-C [address], [place], [address], [place] [facility] 10/28/2024 09:28:58 Social History None recorded. Functional Status None recorded. Mental Status None recorded. Family History Nothing Reported. Medical History No medical history recorded. Past Encounters Encounter ID Performer Location Encounter Start Date Encounter Closed Date Diagnosis/Indication Diagnosis SNOMED-CT Code Diagnosis ICD10 Code Diagnosis Note [id number] MD [place] [address] [facility] [place] [address] 10/28/2024 09:05:04 10/28/2024 09:52:11 Ankle pain 099663321 M25.572 Pain in left foot 313440 9975 34015 M79.672 Health Concerns Section Related Observation LastModified by Organization Detai ls LastModified Time None Recorded Concern Status LastModified by Organization Details LastModified Time None Recorded Advance Directives Directive None Recorded Payers Encounter Date Sequence Insurance Name Policy Number Policy Gloria Covered Member ID Gloria Member ID Guarantor Name 10/28/2024 [facility] [id number] Other Thuan Nguyen Notes Date [...] no medical history. 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 He drinks about 4 alcoholic drinks per week. ADAMA STEINBERG PA-C [address], [place], [address], [place] [facility] 10/28/2024 09:42:03
--- OUTSIDE RECORDS SUMMARY | 2024-12-07 17:19 | XMS_ITS | Data Portability ---
Author Organization ZOHREH Perez s, [address] Address [address] [place] [address] Care Team Providers Care House Carpenter Helper Name Role Phone [facility] Primary Care Provider Assessment No assessment recorded. Plan of Treatment Reminders Order Date Submit Date Provider Last Modified By Organization Details Last Modified Time Details Appointments None recorded. Lab culture, respiratory 2022 023 [place] [facility], [address] [place] [address], [place], [address], 3 16:06:43 rapid flu (A+B) 2022 023 [place] [id number], [address] [place] [address], [address], 3 16:46:11 rapid SARS CoV 2 Ag, QL IA, respiratory specimen 2022 023 [place] [address] [facility], [address] [place] [address], [address], 3 16:46:11 rapid strep group A, throat 2022 023 [place] [address], [address] [place] [address], [address], 3 16:46:10 Referral None recorded. Procedures None recorded. Surgeries None recorded. Imaging None recorded. Medication Orders penicillin V potassium 500 mg tablet 2022 023 [id number], [address] [facility], [place], [address], 16:46:13 Patient TargetsNo targets recorded. Patient Instructions Encounter Date Encounter Id Patient Instructions Last Modified By Organization Details Last Modified Time 11/24/2022 [id number] sore throat: car e instructions [email or web address] Not available 11/24/2022 16:46:27 cough: care instructions [email or web address] Not available 11/24/2022 16:46:11 headache: care instructions [email or web address] Not available 11/24/2022 16:46:11 Reason for Referral None Reported. Results Created Date Observation Date Name Description Value Unit Range Abnormal Flag Note LastModifiedBy Organization Detail LastModifiedTime 11/24/1911/27/2022 UPPER RESPI RATOR Y CULTU RE upper respiratory culture FINAL REPORT Not Available [facility] ([facility]) [address], [place], [address], 11/27/2022 10:06:50 11/24/19 23 11/27/2022 UPPER RESPI RATOR Y CULTU RE result 1 COMMEN T Routi ne respi rator y annamaria Not Available [facility] ([facility]) [address], [place], [address], 11/27/2022 10:06:50 11/24/19 23 11/25/2022 PLEAS E NOTE please note Commen t The date and/o r time of colle ction was not indic ated on the requi sitio n as requi red by state and andres al law. The date of recei pt of the speci men was used as the colle ction date if not suppl ied. Not Available [facility] ([facility]) [address], [place], [address], 11/26/2022 16:06:44 11/24/19 23 11/24/2022 rapid SARS CoV 2 Ag, QL IA, respi rator y speci men Unknown Analyte Normal =Negat vaughn Not Available [address] [place] [address], [place], [address], 11/24/2022 16:14:55 11/24/19 23 11/24/2022 rapid SARS CoV 2 Ag, QL IA, respi rator y speci men Unknown Analyte negati ve Not Available [address] [place] [address], [place], [address], 11/24/2022 16:14:55 11/24/19 23 11/24/2022 rapid flu (A+B) Unknown Analyte Normal = Negati ve Not Available [address] [place] [address], [place], [address], 11/24/2022 16:14:48 11/24/19 23 11/24/2022 rapid flu (A+B) Unknown Analyte negati ve Not Available [address] [place] [address], [place], [address], 11/24/2022 16:14:48 11/24/19 23 11/24/2022 rapid flu (A+B) Unknown Analyte Normal = Negati ve Not Available [address] [place] [address], [place], [address], 11/24/2022 16:14:48 11/24/19 23 11/24/2022 rapid flu (A+B) Unknown Analyte negati ve Not Available [address] [place] [address], [place], [address], 11/24/2022 16:14:48 11/24/19 23 11/24/2022 rapid strep group A, throa t Unknown Analyte Normal = Negati ve Not Available [address] [place] [address], [place], [address], 11/24/2022 16:15:00 11/24/19 23 11/24/2022 rapid strep group A, throa t Unknown Analyte negati ve Not Available [address] [address] [place] [address], [place], [address], 11/24/2022 16:15:00 Result Notes None recorded. Problems Name Problem SNOMED Code Status Onset Date Resolution Date Notes Provider Name and Address Organization Details Recorded Time Gastroesophage al reflux disease 552367544 Active 2022 KENNEY montoya PA - [facility] 3 16:12:05 Migraine 78339162 Active 2022 KENNEY montoya PA - [facility] 3 16:12:17 Chronic back pain 302806821 Active 2022 [facility] - [facility] [...] Not Available Vitals Date Recorded Body height Provider Name an d Address Organization Details Last Updated DateTime 11/24/2022 180.34 cm KENNEY ANGULO PA - [facility] 11/24/2022 16:13:19 Date Recorded Body mass index (BMI) Body weight Provider Name and Address Organization Details Last Updated DateTime 11/24/2022 37.1 kg/m2 586577.57 g KENNEY ANGULO PA - [facility] 11/24/2022 16:13:24 Date Recorded Body temperature Provider Name a nd Address Organization Details Last Updated DateTime 11/24/2022 97.2 [degF] KENNEY ANGULO PA - [facility] 11/24/2022 16:14:07 Date Recorded Respiratory rate Provider Name a nd Address Organization Details Last Updated DateTime 11/24/2022 18 /min KENNEY ANGULO PA - [facility] 11/24/2022 16:14:09 Date Recorded Heart rate Provider Name an d Address Organization Details Last Updated DateTime 11/24/2022 78 /min KENNEY ANGULO PA - [facility] 11/24/2022 16:14:26 Date Recorded Oxygen saturation Oxygen saturation in Arterial blood by Pulse oximetry Provider Name and Address Organization Details Last Updated DateTime 11/24/2022 98 % 98 % KENNEY ANGULO PA - [facility] 11/24/2022 16:14:31 Date Recorded Systolic blood pressure Diastolic blood pressure Provider Name and Address Organization Details Last Updated DateTime 11/24/2022 142 mm[Hg] 79 mm[Hg] KENNEY ANGULO PA - [facility] 11/24/2022 16:14:38 Social History Question Answer Notes LastModified by Organizat ion Details LastModified Time Tobacco Smoking Status Never Smoker KENNEY montoya PA - [facility] 11/24/2022 16:12:54 What Is Your Level [...] 16:10:17 Influenza, MDCK, quadrivalent, PF 01/05/2021 completed ZOHREH Banerjee - [facility] 11/24/2022 16:10:17 Past Encounters Encounter ID Performer Location Encounter Start Date Encounter Closed Date Diagnosis/Indication Diagnosis SNOMED-CT Code Diagnosis ICD10 Code Diagnosis Note [id number] [facility] [address] [place] [address] 05/01/2022 17:21:49 05/01/2022 17:50:[id number] [address] 05/03/2020 09:55:42 05/03/2020 11:30:41 [id number] [facility]H MONTIEL [facility] [address] [place] [address] 11/24/2022 15:59:16 11/24/2022 16:57:03 Acute upper respiratory infection 43686165 J06.9 Sore throat 262079963 J0 2.9 Known strep exposure. Rapid strep negative in clinic. To start antibiotic s while we wait for throat culture results which can take 3-5 days to return. Health Concerns Section Related Observation LastModified by Organization Detai ls LastModified Time None Recorded Concern Status LastModified by Organization Details LastModified Time None Recorded Advance Directives Directive None Recorded Payers Encounter Date Sequence Insurance Name Policy Number Policy Gloria Covered Member ID Gloria Member ID Guarantor Name 11/24/2022 [employer] [facility] [place] [facility] Thuan Nguyen [id number] Thuan Vazquezos Notes Date Note Type Note Provider Name [...] throat culture from paediatricians office as well. ZOHREH GALLOWAY [facility] [place], [address], [place] - [facility] 11/24/2022 16:48:47
== END 2024-12-07 16:15 | disposition home or self-care (01) ==
PROVIDERS: PCP Internal Medicine; Visit Provider Internal Medicine
DX: G43.119 Migraine with aura, intractable, without status migrainosus (principal); E66.9 Obesity, unspecified; L03.012 Cellulitis of left finger; Z68.39 Body mass index [BMI] 39.0-39.9, adult; R73.02 Impaired glucose tolerance (oral); G47.33 Obstructive sleep apnea (adult) (pediatric); F41.1 Generalized anxiety disorder; K21.9 Gastro-esophageal reflux disease without esophagitis

== ENCOUNTER → 2024-12-07 15:19 | Outpatient (BNVA) | payer BC, OTHER, SELFPAY | PROVIDERS: PCP Internal Medicine; Visit Provider Internal Medicine | DX: S96.912D Strain of unspecified muscle and tendon at ankle and foot level, left foot, subsequent encounter (principal); G43.119 Migraine with aura, intractable, without status migrainosus; R73.02 Impaired glucose tolerance (oral); G47.33 Obstructive sleep apnea (adult) (pediatric); E66.9 Obesity, unspecified; Z68.39 Body mass index [BMI] 39.0-39.9, adult; F41.1 Generalized anxiety disorder; K21.9 Gastro-esophageal reflux disease without esophagitis; L03.012 Cellulitis of left finger | CPT/HCPCS: 96127; 99212 ==

== ENCOUNTER 2024-12-08 08:01 | Outpatient (REF) | payer BC, OTHER, SELFPAY ==
--- NOTE | ~2024-12-08 | US_ITS ---
CLINICAL HISTORY: FATTY LIVER US abdomen complete Comparison: None Findings: The visualized pancreas is normal. The aorta and inferior vena cava are normal caliber. The liver is normal in size and echotexture. There is no intrahepatic bile duct dilatation. The common duct is 2 mm in diameter. The gallbladder is normal. There is no sonographic Haywood sign. The main portal vein is antegrade. The right kidney is 10.0 cm in length. The left kidney is 11.1 cm in length. The spleen is normal. No ascites. IMPRESSION: 1. Normal complete abdominal ultrasound. This document has been electronically signed by: Syed Bledsoe MD on 12/08/2024 10:20:50
--- OUTSIDE RECORDS SUMMARY | 2024-12-08 08:04 | XMS_ITS | Continuity of Care Document ---
Author Name [facility] Organization [facility] Care Team Providers Care Data Reporting Analyst Name Role Phone [facility] Unavailable Unavailable Problems [...] [facility] Chronic Post-Traumatic Stress Disorder ([facility] [id number]) Active Condition Oct 13, 2023 Entered By: MIGUELITO GABRIEL Comment: reviewed BATH Comanagement Active Condition Dec 01, 2022 Entered By: RUTHIE ESTEBAN Comment: Belén Knight [facility] Exposure to potentially hazardous substance Active Condition Dec 15, 2022 Entered By: JANEY RODRIGEZ Comment: [facility] (631GE) History of deployment Active Condition [facility] Major depressive disorder Active Condition Jan 25, 2021 Entered By: MIGUELITO GABRIEL Comment: reviewedAug 20, 2021 Entered By: MIGUELITO GABRIEL Comment: reviewedOct 13, 2023 Entered By: MIGUELITO GABRIEL Comment: reviewed [facility] Migraine Active Condition Jul 25 Entered By: RUTHIE ESTEBAN Comment: followed by Dr. Vo [facility] Sleep apnea Active Condition Sep 09, 2022 Entered By: RUTHIE ESTEBAN Comment: unable to tolerate PAP therapy [facility] Affective disorder Inactive Condition 10/13/2023 [facility] Chronic post-traumatic stress disorder Inactive Condition 08/20/2021 LAKESHAKatie GARZA Diagnosis: ICD-10-CM F43.12 Post-traumatic stress disorder, chronic Active Diagnosis [facility] Diagnosis: ICD-10-CM G47.33 Obstructive sleep apnea (adult) (pediatric) Active Diagnosis [facility] Diagnosis: ICD-10-CM K03.6 Deposits [accretions] on teeth Active Diagnosis [facility] Diagnosis: ICD-10-CM M54.59 Other low back pain Active Diagnosis [facility] Diagnosis: ICD-10-CM G47.30 Sleep apnea, unspecified Active Diagnosis [facility] Medications Combined list of outpatient medications from Department of Defense and [facility] facilities.Medications provided include 1) outpatient medications [...] ONE CAPSULE BY MOUTH TWICE DAILY 10/17/2023 [id number] GLORIA ESTEBAN O C 2022 20 [facility] AMOXICILLIN TRIHYDRATE 500MG CAP TAKE ONE CAPSULE BY MOUTH TWICE DAILY ORAL 10/17/2023 [id number] 3 GLORIA ESTEBAN O 2022 20 [place] sertraline (U/D) 25 MG ORAL TAB TAKE ONE TABLET BY MOUTH ONCE DAILY FOR MOOD 10/13/2024 [id number] 4 MIGUELITO GABRIEL 2023 60 [facility] SERTRALINE HCL 25MG TAB TAKE ONE TABLET BY MOUTH ONCE DAILY FOR POSTTRAU MATIC STRESS SYNDROME ORAL ACTIVE 08/06/2025 [id number] 5 Guy GABRIEL 2023 [facility] [place] SERTRALINE HCL 25MG TAB TAKE ONE TABLET BY MOUTH ONCE DAILY FOR MOOD ORAL DISCONT INUED 10/13/2024 [id number] 4 Guy GABRIEL 2022 60 [place] SODIUM FLUORIDE 1.1% TOOTHPASTE BRUSH SMALL AMOUNT TO TEETH TWICE DAILY FOR TOOTH DECAY PREVENTI ON DENTAL ACTIVE 10/12/2025 [id number] 4 Geraldine KEYES 2023 51 [facility] UBROGEPANT TAB TAKE BY MOUTH ONE TIME ORAL ACTIVE Guy GABRIEL 2023 [facility] [place] Allergies, Adverse Reactions, Alerts Combined list of allergies from Department of Defense and Veterans Affairs facilities. It does not include entries that were removed or entered in error. Substance Category Reaction Severity Reaction type Status Date Reported Comments Source No Known Allergies Drug allergy (disorder) active 08/24/2013 Pradip DE JESUS, [facility] [place] Immunizations Combined list of available immunizations from the Department of Defense and Veterans Affairs facilities. Immunization Series Date Given Administered By Site Reaction Lot Number CVX Code Drug Pantry Goods Maker Status Comments Source influenza, injectable, quadrivalent, contains preservative 1 2018 [id number] 158 Seqirus (SEQ) complet ed influenza , injectabl e, quadrival ent, contains preservat vaughn DoD anthrax vaccine 1 2018 [id number] [facility] ed anthrax vaccine DoD typhoid Vi capsular polysaccharid e vaccine 1 2018 [id number] Sanofi Pasteur (PMC) complet ed typhoid Vi capsular polysacch aride vaccine DoD Influenza, seasonal, injectable, preservative free 1 2017 [id number] Seqirus (SEQ) comple t ed Influenza , seasonal, injectabl e, preservat vaughn free DoD Influenza, injectable, quadrivalent, preservative free 1 2017 [id number] 150 Unknown (UNK) comple t ed Influenza , injectabl e, quadrival ent, preservat vaughn free DoD Influenza, seasonal, injectable, preservative free 1 2016 [id number] 140 Unknown (UNK) comple t ed Influenza , seasonal, injectabl e, preservat vaughn free DoD Influenza, seasonal, injectable, preservative free 1 2015 [id number] Other (OTH) complet ed Influenza , seasonal, injectabl e, preservat vaughn free DoD Influenza, seasonal, injectable, preservative free 1 2014 [id number] 140 Other (OTH) complet ed Influenza , seasonal, injectabl e, preservat vaughn free DoD hepatitis B vaccine, adult dosage 3 2013 [id number] 43 Other (OTH) complet ed hepatitis B vaccine, adult dosage DoD hepatitis A vaccine, adult dosage 3 2013 [id number] 52 Other (OTH) complet ed hepatitis A vaccine, adult dosage DoD Influenza, seasonal, injectable, preservative free 1 2013 [id number] 140 [facility] ([facility]) complet ed Influenza , seasonal, injectabl e, preservat vaughn free DoD hepatitis A and hepatitis B vaccine 2 2012 [id number] [facility] ([facility]) complet ed hepatitis A and hepatitis B vaccine DoD measles, mumps and rubella virus vaccine 1 2012 UNK 03 Unknown (UNK) Not Given measles, mumps and rubella virus vaccine DoD varicella virus vaccine 1 2012 UNK 21 Unknown (UNK) Not Given varicella virus vaccine DoD hepatitis A and hepatitis B vaccine 1 2012 [id number] 104 [facility] ([facility]) complet ed hepatitis A and hepatitis B vaccine DoD Adenovirus, type 4 and type 7, live, oral 1 2012 [id number] 143 [employer] ([facility]) complet ed Adenoviru s, type 4 and type 7, live, oral DoD influenza, live, intranasal, quadrivalent 1 2012 [id number] 149 [employer] (CSL) complet ed influenza , live, intranasa l, quadrival ent DoD poliovirus vaccine, inactivated 1 2012 [id number] 10 Sanofi Pasteur (PMC) complet ed polioviru s vaccine, inactivat ed DoD meningococcal polysaccharid e (groups A, C, Y and W-135) diphtheria toxoid conjugate vaccine (MCV4P) 1 2012 [id number] 114 [place] ([place]) complet ed meningoco ccal polysacch aride (groups A, C, Y and W-135) diphtheri a toxoid conjugate vaccine (MCV4P) DoD tetanus toxoid, reduced diphtheria toxoid, and acellular pertu is vaccine, adsorbed 1 2012 [id number] Sanofi Pasteur (PMC) complet ed tetanus [...] Sep 17, 2023 11:53 AM Reporting Lab: [facility] [place] [facility] [address] [facility] [address] Performing Lab: [facility] [place] [facility] [address] [facility] [address] [facility] [place] [employer] [facility] BASIC METABOLIC PANEL (fasting) UREA NITROGEN [MASS/VOLUM E] IN SERUM OR PLASMA 13 mg/dL 7 - 25 09/17 Specimen Type: SERUM No comment entered. Ordering Provider: JOSHUA ESTEBAN Report Released Date/Time: March 19, 2023 04:54 PM Reporting Lab: [facility] [place] [facility] [address] [facility] [address] Performing Lab: [facility] [place] [facility] [employer] [address] [address] [facility] [place] [employer] [facility] BASIC METABOLIC PANEL (fasting) GLUCOSE [MASS/VOLUM E] IN SERUM OR PLASMA 92 mg/dL 65 - 100 09/17 Specimen Type: SERUM No comment entered. Ordering Provider: JOSHUA ESTEBAN Report Released Date/Time: March 19, 2023 04:54 PM Reporting Lab: [facility] [place] [facility] [address] [facility] [address] Performing Lab: [facility] [place] [address] [address] [facility] [place] [facility] [employer] [facility] BASIC METABOLIC PANEL (fasting) SODIUM [MOLES/VOLU ME] IN SERUM OR PLASMA 139 mmol/L 135 - 145 09/17 Specimen Type: SERUM No comment entered. Ordering Provider: JOSHUA ESTEBAN Report Released Date/Time: March 19, 2023 04:54 PM Reporting Lab: [facility] [place] [facility] [address] [facility] [address] Performing Lab: [facility] [place] [address] [address] [facility] [place] [facility] [employer] [facility] BASIC METABOLIC PANEL (fasting) POTASSIUM [MOLES/VOLU ME] IN SERUM OR PLASMA 4.2 mmol/L 3.5 - 5.0 09/17 Specimen Type: SERUM No comment entered. Ordering Provider: JOSHUA ESTEBAN Report Released Date/Time: March 19, 2023 04:54 PM Reporting Lab: [facility] [address] [address] Performing Lab: [facility] [address] [address] [facility] BASIC METABOLIC PANEL (fasting) CHLORIDE [MOLES/VOLU ME] IN SERUM OR PLASMA 105 mmol/L 100 - 110 09/17 Specimen Type: SERUM No comment entered. Ordering Provider: JOSHUA ESTEBAN Report Released Date/Time: March 19, 2023 04:54 PM Reporting Lab: [address] [address] Performing Lab: [facility] [address] [address] [facility] BASIC METABOLIC PANEL (fasting) CARBON DIOXIDE, TOTAL [MOLES/VOLU ME] IN SERUM OR PLASMA 26 meq/L 20 - 30 09/17 Specimen Type: SERUM No comment entered. Ordering Provider: JOSHUA ESTEBAN Report Released Date/Time: March 19, 2023 04:54 PM Reporting Lab: [facility] [address] [address] Performing Lab: [facility] [address] [address] [facility] BASIC METABOLIC PANEL (fasting) CREATININE [MASS/VOLUM E] IN SERUM OR PLASMA 1.11 mg/dL 0.50 - 1.40 09/17 Specimen Type: SERUM No comment entered. Ordering Provider: JOSHUA ESTEBAN Report Released Date/Time: March 19, 2023 04:54 PM Reporting Lab: [facility] [address] [address] Performing Lab: [facility] [place] [facility] [address] [facility] [address] [facility] [place] [facility] BASIC METABOLIC PANEL (fasting) GLOMERULAR FILTRATION RATE/1.73 SQ M.PREDICTED [VOLUME RATE/AREA] IN SERUM, PLASMA OR BLOOD BY CREATININE- BASED FORMULA (CKD-EPI 2020) 90 mL/min 60 09/17 Specimen Type: SERUM No comment entered. Ordering Provider: JOSHUA ESTEBAN Report Released Date/Time: March 19, 2023 04:54 PM Reporting Lab: [facility] [place] [facility] [address] [facility] [address] Performing Lab: [facility] [place] [facility] [address] [facility] [address] [facility] [place] [facility] [employer] [facility] CBC AND DIFF (AUTO) LEUKOCYTES [#/VOLUME] IN BLOOD BY AUTOMATED COUNT 11.72 10*3/u L 4.50 - 11.00 09/17 H Specimen Type: BLOOD No comment entered. Ordering Provider: JOSHUA ESTEBAN Report Released Date/Time: March 19, 2023 04:54 PM Reporting Lab: [facility] [place] [facility] [address] [address] Performing Lab: [facility] [place] SSD[facility] [facility] [address] [facility] [address] [facility] [place] [facility] [employer] [facility] CBC AND DIFF (AUTO) ERYTHROCYTE S [#/VOLUME] IN BLOOD BY AUTOMATED COUNT 5.54 10*6/u L 4.23 - 5.66 09/17 Specimen Type: BLOOD No comment entered. Ordering Provider: JOSHUA ESTEBAN Report Released Date/Time: March 19, 2023 04:54 PM Reporting Lab: [facility] [place] SSDUSETS [address] [address] Performing Lab: [facility] [place] [employer] [address] [address] [facility] [place] [employer] [facility] CBC AND DIFF (AUTO) HEMOGLOBIN [MASS/VOLUM E] IN BLOOD 14.9 g/dL 12.8 - 17 09/17 Specimen Type: BLOOD No comment entered. Ordering Provider: JOSHUA ESTEBAN Report Released Date/Time: March 19, 2023 04:54 PM Reporting Lab: [facility] [address] [facility] [address] Performing Lab: [facility] [facility] [address] [facility] [address] [facility] CBC AND DIFF (AUTO) HEMATOCRIT [VOLUME FRACTION] OF BLOOD BY AUTOMATED COUNT 45.1 39.2 - 50.4 09/17 Specimen Type: BLOOD No comment entered. Ordering Provider: JOSHUA ESTEBAN Report Released Date/Time: March 19, 2023 04:54 PM Reporting Lab: [facility] [facility] [address] [facility] [address] Performing Lab: [facility] [facility] [address] [facility] [address] [facility] [place] CBC AND DIFF (AUTO) MCV [ENTITIC VOLUME] BY AUTOMATED COUNT 81.4 fL 82 - 99 09/17 L Specimen Type: BLOOD No comment entered. Ordering Provider: JOSHUA ESTEBAN Report Released Date/Time: March 19, 2023 04:54 PM Reporting Lab: [facility] [facility] [address] [facility] [address] Performing Lab: [facility] [facility] [address] [facility] [address] [facility] [place] [facility] CBC AND DIFF (AUTO) MCHC [MASS/VOLUM E] BY AUTOMATED COUNT 33.0 g/dL 30.8 - 35.1 09/17 Specimen Type: BLOOD No comment entered. Ordering Provider: JOHSUA ESTEBAN Report Released Date/Time: March 19, 2023 04:54 PM Reporting Lab: [facility] [facility] [address] [facility] [address] Performing Lab: [facility] [facility] [address] [facility] [address] [facility] [place] [facility] CBC AND DIFF (AUTO) PLATELETS [#/VOLUME] IN BLOOD BY AUTOMATED COUNT 294 10*3/u L 140 - 360 09/17 Specimen Type: BLOOD No comment entered. Ordering Provider: JOSHUA ESTEBAN Report Released Date/Time: March 19, 2023 04:54 PM Reporting Lab: [facility] [place] [facility] [address] [facility] [address] Performing Lab: [facility] [place] [facility] [address] [facility] [address] [facility] [place] [facility] CBC AND DIFF (AUTO) ERYTHROCYTE DISTRIBUTIO N WIDTH [RATIO] BY AUTOMATED COUNT 13.9 12.0 - 16.0 09/17 Specimen Type: BLOOD No comment entered. Ordering Provider: JOSHUA ESTEBAN Report Released Date/Time: March 19, 2023 04:54 PM Reporting Lab: [facility] [place] [address] [address] Performing Lab: [facility] [place] [address] [address] [facility] MASSUSE [facility] CBC AND DIFF (AUTO) MONOCYTES [#/VOLUME] IN BLOOD BY AUTOMATED COUNT 0.96 10*3/u L 0.30 - 1.10 09/17 Specimen Type: BLOOD No comment entered. Ordering Provider: JOSHUA ESTEBAN Report Released Date/Time: March 19, 2023 04:54 PM Reporting Lab: [facility] [place] [facility] [address] [facility] [address] Performing Lab: [facility] [place] [facility] [address] [facility] [address] [facility] [place] [facility] CBC AND DIFF (AUTO) MCH [ENTITIC MASS] BY AUTOMATED COUNT 26.9 pg 26.2 - 32.6 09/17 Specimen Type: BLOOD No comment entered. Ordering Provider: JOSHUA ESTEBAN Report Released Date/Time: March 19, 2023 04:54 PM Reporting Lab: [facility] [place] [address] [address] Performing Lab: [facility] [place] [facility] [address] [facility] [address] [facility] [place] [facility] CBC AND DIFF (AUTO) NEUTROPHILS /100 LEUKOCYTES IN BLOOD BY AUTOMATED COUNT 76.1 43.7 - 75.8 09/17 H Specimen Type: BLOOD No comment entered. Ordering Provider: JOSHUA ESTEBAN Report Released Date/Time: March 19, 2023 04:54 PM Reporting Lab: [facility] [place] [facility] [address] [facility] [address] Performing Lab: [facility] [place] [facility] [address] [facility] [address] [facility] [place] [facility] CBC AND DIFF (AUTO) LYMPHOCYTES /100 LEUKOCYTES IN BLOOD BY AUTOMATED COUNT 13.8 14.0 - 42.3 09/17 L Specimen Type: BLOOD No comment entered. Ordering Provider: JOSHUA ESTEBAN Report Released Date/Time: March 19, 2023 04:54 PM Reporting Lab: [facility] [place] [facility] [address] [facility] [address] Performing Lab: [facility] [place] [facility] [address] [facility] [address] [facility] [place] [facility] CBC AND DIFF (AUTO) MONOCYTES/1 00 LEUKOCYTES IN BLOOD BY AUTOMATED COUNT 8.2 5.1 - 13.7 09/17 Specimen Type: BLOOD No comment entered. Ordering Provider: JOSHUA ESTEBAN Report Released Date/Time: March 19, 2023 04:54 PM Reporting Lab: [facility] [place] [facility] [address] [facility] [address] Performing Lab: [facility] [place] [facility] [address] [place] [address] [facility] [place] [facility] CBC AND DIFF (AUTO) EOSINOPHILS /100 LEUKOCYTES IN BLOOD BY AUTOMATED COUNT 1.1 0.4 - 6.8 09/17 Specimen Type: BLOOD No comment entered. Ordering Provider: JOSHUA ESTEBAN Report Released Date/Time: March 19, 2023 04:54 PM Reporting Lab: [facility] [place] [facility] [address] [facility] [address] Performing Lab: [facility] [place] [facility] [address] [facility] [address] [facility] [place] [facility] CBC AND DIFF (AUTO) BASOPHILS/1 00 LEUKOCYTES IN BLOOD BY AUTOMATED COUNT 0.5 0.1 - 2.0 09/17 Specimen Type: BLOOD No comment entered. Ordering Provider: JOSHUA ESTEBAN Report Released Date/Time: March 19, 2023 04:54 PM Reporting Lab: [facility] [place] [facility] [address] [facility] [address] Performing Lab: [facility] [place] [address] [address] [facility] [place] [facility] CBC AND DIFF (AUTO) NEUTROPHILS [#/VOLUME] IN BLOOD BY AUTOMATED COUNT 8.91 10*3/u L 2.20 - 7.60 09/17 H Specimen Type: BLOOD No comment entered. Ordering Provider: JOSHUA ESTEBAN Report Released Date/Time: March 19, 2023 04:54 PM Reporting Lab: [facility] [place] [address] [address] Performing Lab: [facility] [place] [address] [address] [facility] [place] [facility] CBC AND DIFF (AUTO) LYMPHOCYTES [#/VOLUME] IN BLOOD BY AUTOMATED COUNT 1.62 10*3/u L 1.00 - 3.20 09/17 Specimen Type: BLOOD No comment entered. Ordering Provider: JOSHUA ESTEBAN Report Released Date/Time: March 19, 2023 04:54 PM Reporting Lab: [facility] [place] [facility] [address] [facility] [address] Performing Lab: [facility] [place] [address] [address] [facility] [place] [facility] CBC AND DIFF (AUTO) EOSINOPHILS [#/VOLUME] IN BLOOD BY AUTOMATED COUNT 0.13 10*3/u L 0.03 - 0.44 09/17 Specimen Type: BLOOD No comment entered. Ordering Provider: JOSHUA ESTEBAN Report Released Date/Time: March 19, 2023 04:54 PM Reporting Lab: [facility] [place] [facility] [address] [facility] [address] Performing Lab: [facility] [place] [address] [address] [facility] [place] [facility] CBC AND DIFF (AUTO) BASOPHILS [#/VOLUME] IN BLOOD BY AUTOMATED COUNT 0.06 10*3/u L 0.01 - 0.13 09/17 Specimen Type: BLOOD No comment entered. Ordering Provider: JOSHUA ESTEBAN Report Released Date/Time: March 19, 2023 04:54 PM Reporting Lab: [facility] [place] [address] [address] Performing Lab: [facility] [address] [address] [facility] [place] [facility] CBC AND DIFF (AUTO) IMMATURE GRANULOCYTE S/100 LEUKOCYTES IN BLOOD BY AUTOMATED COUNT 0.3 0.0 - 0.7 09/17 Specimen Type: BLOOD No comment entered. Ordering Provider: JOSHUA ESTEBAN Report Released Date/Time: March 19, 2023 04:54 PM Reporting Lab: [facility] [place] [address] [address] Performing Lab: [facility] [place] [address] [address] [facility] [place] [facility] CBC AND DIFF (AUTO) IMMATURE GRANULOCYTE S [#/VOLUME] IN BLOOD 0.04 10*3/u L 0.00 - 0.06 09/17 Specimen Type: BLOOD No comment entered. Ordering Provider: JOSHUA ESTEBAN Report Released Date/Time: March 19, 2023 04:54 PM Reporting Lab: [facility] [place] [address] [address] Performing Lab: [facility] [address] [address] [facility] HEMOGLOBI N A1C PANEL HEMOGLOBIN [...] March 19, 2023 04:54 PM Reporting Lab: [address] [address] Performing Lab: [address] [address] [facility] LIPID PANEL FASTING CHOLESTEROL [MASS/VOLUM E] IN SERUM OR PLASMA 168 mg/dL 09/17 Specimen Type: SERUM No comment entered. Ordering Provider: JOSHUA ESTEBAN Report Released Date/Time: March 19, 2023 04:54 PM Reporting Lab: [address] [address] Performing Lab: [address] [address] [facility] LIPID PANEL FASTING TRIGLYCERID E [MASS/VOLUM E] IN SERUM OR PLASMA 185 mg/dL 0 - 150 09/17 H Specimen Type: SERUM No comment entered. Ordering Provider: JOSHUA ESTEBAN Report Released Date/Time: March 19, 2023 04:54 PM Reporting Lab: [address] [address] Performing Lab: [address] [address] [facility] LIPID PANEL FASTING CHOLESTEROL IN LDL [MASS/VOLUM E] IN SERUM OR PLASMA BY CALCULATION 91 mg/dL 0 - 129 09/17 Specimen Type: SERUM No comment entered. Ordering Provider: JOSHUA ESTEBAN Report Released Date/Time: March 19, 2023 04:54 PM Reporting Lab: [facility] [facility] [address] [facility] [address] Performing Lab: [facility] [facility] [facility] [address] [facility] [place] [employer] LIPID PANEL FASTING CHOLESTEROL .TOTAL/CHOL ESTEROL IN HDL [MASS RATIO] IN SERUM OR PLASMA 4.2 09/17 Specimen Type: SERUM No comment entered. Ordering Provider: JOSHUA ESTEBAN Report Released Date/Time: March 19, 2023 04:54 PM Reporting Lab: [facility] [place] [facility] [address] [address] Performing Lab: [facility] [place] [facility] SSD[facility] [address] [facility] [place] [facility] [employer] [facility] LIPID PANEL FASTING CHOLESTEROL IN HDL [MASS/VOLUM E] IN SERUM OR PLASMA 40 mg/dL 40 - 60 09/17 Specimen Type: SERUM No comment entered. Ordering Provider: JOSHUA ESTEBAN Report Released Date/Time: March 19, 2023 04:54 PM Reporting Lab: [facility] [place] [facility] SSD[facility] [address] [address] Performing Lab: [facility] [place] [facility] SSD[facility] [address] [address] [facility] LIVER FUNCTION PROTEIN [MASS/VOLUM E] IN SERUM OR PLASMA 7.5 g/dL 6.0 - 8.3 09/17 Specimen Type: SERUM No comment entered. Ordering Provider: JOSHUA ESTEBAN Report Released Date/Time: March 19, 2023 04:54 PM Reporting Lab: [facility] [place] [facility] [address] [address] Performing Lab: [facility] [place] [facility] [address] [address] [facility] LIVER FUNCTION ALBUMIN [MASS/VOLUM E] IN SERUM OR PLASMA 4.3 g/dL 3.5 - 5.0 09/17 Specimen Type: SERUM No comment entered. Ordering Provider: JOSHUA ESTEBAN Report Released Date/Time: March 19, 2023 04:54 PM Reporting Lab: [facility] [place] [facility] [address] [facility] [address] Performing Lab: [facility] [place] [facility] [address] [facility] [address] [facility] [place] [facility] LIVER FUNCTION ALKALINE PHOSPHATASE [ENZYMATIC ACTIVITY/VO LUME] IN SERUM OR PLASMA 49 U/L 40 - 150 09/17 Specimen Type: SERUM No comment entered. Ordering Provider: JOSHUA ESTEBAN Report Released Date/Time: March 19, 2023 04:54 PM Reporting Lab: [facility] [place] [address] [address] Performing Lab: [facility] [place] [facility] [address] [facility] [address] [facility] [place] [facility] LIVER FUNCTION ASPARTATE AMINOTRANSF ERASE [ENZYMATIC ACTIVITY/VO LUME] IN SERUM OR PLASMA 19 U/L 5 - 34 09/17 Specimen Type: SERUM No comment entered. Ordering Provider: JOSHUA ESTEBAN Report Released Date/Time: March 19, 2023 04:54 PM Reporting Lab: [facility] [place] [address] [address] Performing Lab: [facility] [place] [facility] [address] [facility] [address] [facility] [facility] LIVER FUNCTION ALANINE AMINOTRANSF ERASE [ENZYMATIC ACTIVITY/VO LUME] IN SERUM OR PLASMA 30 U/L 09/17 Specimen Type: SERUM No comment entered. Ordering Provider: JOSHUA ESTEBAN Report Released Date/Time: March 19, 2023 04:54 PM Reporting Lab: [facility] [place] [address] [address] Performing Lab: [facility] [place] [facility] [address] [facility] [address] [facility] [place] LIVER FUNCTION BILIRUBIN.T OTAL [MASS/VOLUM E] IN SERUM OR PLASMA 0.8 mg/dL 0.2 - 1.2 09/17 Specimen Type: SERUM No comment entered. Ordering Provider: JOSHUA ESTEBAN Report Released Date/Time: March 19, 2023 04:54 PM Reporting Lab: [facility] [place] [facility] [address] [facility] [address] Performing Lab: [facility] [place] [facility] [address] [facility] [address] [facility] [place] [facility] TSH THYROTROPIN [UNITS/VOLU ME] IN SERUM OR PLASMA 2.26 u[IU]/ mL 0.35 - 5.00 09/17 Specimen Type: SERUM No comment entered. Ordering Provider: JOSHUA ESTEBAN Report Released Date/Time: March 19, 2023 04:54 PM Reporting Lab: [facility] [place] [facility] [address] [facility] [address] Performing Lab: [facility] [place] [facility] [address] [facility] [address] [facility] [place] [facility] Encounters Combined list of: 1) Encounters from Department of Veterans Affairs facilities going back up to thelast 18 months. 2) Encounters from the Department of Defense facilities going back up to 280 months. Location Location Details Encounter Type Encounter Number Reason For Visit Attending Provider ADM Date DC Date Status Disposition Source [place]) OUTPATIENT [id number] Notes Entered by: CHERIE GONZALES 28 Jul 2013 1407 ------- ------- ------- ------- -- Hearing test CHERIE GONZALES 07/28 [place]ased w/o Limitations [place] [place] [place] OUTPATIENT [id number] [place] MA[facility] 07/29 Released w/o Limitations [place] [id number] Notes Entered by: Christina MCKEON 30 Jul 2013 1007 ------- ------- ------- ------- -- IMM TATIANNA REEVESMARPerez Meier 07/30 Released w/o Limitations [place] ) [place] OUTPATIENT [id number] Notes Entered by: MADELINE MEDELLIN 24 Aug 2013 0701 ------- ------- ------- ------- -- ORTHO- HAND MILLY DIAZ 08/24 Released with Work/Duty Limitations [place] OUTPATIENT [id number] Notes Entered by: RODRIGUE NOBLES 13 Sep 2013 0826 ------- ------- ------- ------- -- IMM-ZAKIA SNYDER 09/13 Released w/o Limitations [place]) [place] [facility] OUTPATIENT [id number] Notes Entered by: RODRIGUE NOBLES 01 Oct 2013 0702 ------- ------- ------- ------- -- DERM ZAKIA Bella 10/01 Released w/o Limitations [place]) [place] Bldg [address]) OUTPATIENT [id number] Notes Entered by: AMANDA HUGHES 30 Dec 2018 0843 ------- ------- ------- ------- -- ALEC RENDON 12/30 Released w/o Limitations Raudel Linares [place] Bld[facility] [address]) Theater Facility OUTPATIENT [id number] Theater Provider 05/08 Released w/o Limitations [facility] OUTPATIENT [id number] Theater Provider 05/09 Released w/o Limitations [facility] OUTPATIENT [id number] 2 Theater Provider 05/12 Released w/o Limitations [facility] OUTPATIENT [id number] Theater Provider 05/23 Released w/o Limitations [facility] OUTPATIENT [id number] 4 Theater Provider 05/24 Released w/o Limitations [facility] OUTPATIENT [id number] 8 Theater Provider 06/28 Released w/o Limitations [facility] OUTPATIENT [id number] 0 Theater Provider 07/03 Released with Work/Duty Limitations [facility] OUTPATIENT [id number] 6 Theater Provider 07/08 Released w/o Limitations [facility] OUTPATIENT [id number] 2 Theater Provider 07/09 Released w/o Limitations [facility] OUTPATIENT [id number] Theater Provider 07/29 Released w/o Limitations [facility] OUTPATIENT [id number] 7 Theater Provider 08/07 Released w/o Limitations [facility] OUTPATIENT [id number] Theater Provider 08/15 Released w/o Limitations [facility] OUTPATIENT [id number] 3 Theater Provider 08/28 Released w/o Limitations [facility] OUTPATIENT [id number] 8 Theater Provider 08/28 Released with Work/Duty Limitations [facility] OUTPATIENT [id number] 2 Theater Provider 09/01 Released w/o Limitations [facility] OUTPATIENT [id number] 1 Theater Provider 09/10 Released w/o Limitations [facility] OUTPATIENT [id number] 5 Theater Provider 09/15 Sick at Home/Quarter s Theater [facility] OUTPATIENT [id number] 3 Theater Provider 09/16 S[facility] at Home[facility]Quarter s [facility] OUTPATIENT [id number] 5 Theater Provider 09/17 Sick at Home/Quarter s [facility] OUTPATIENT [id number] 4 Theater Provider 10/09 Released w/o Limitations Theater Facilit y [place] [address]) OUTPATIENT [id number] Notes Entered by: SARAI MARQUEZ 25 Nov 2019 1127 ------- ------- ------- ------- -- ELMER SOARES 11/25 Released w/o Limitations [place] [address]) [place] Hearing Conservat ion) OUTPATIENT [id number] Notes Entered by: CAM HU I 25 Nov 2019 1240 ------- ------- ------- ------- -- POST JADE HO I 11/25 Released w/o Limitations [place] Hearing Conserv ation) [place] Physical Exam Clinic) OUTPATIENT [id number] Notes Entered by: ASAD STEEL 25 Nov 2019 1305 ------- ------- ------- ------- -- HERMAN 638 SELENA REDDY 11/25 Released w/o Limitations [place] Physica l Exam Clinic) [place] Outpatient Encounter [id number] Diagnos is: ICD-10- CM F43.12 Post-tr aumatic stress disorde r, chronic
ST TYRA GABRIEL 06/16 [facility] OFF[facility] O/P EST LOW 20-29 MIN [id number] Diagnos is: ICD-10- CM M54.59 Other low back pain
GAUNYA,CHR ISTOPHER M 06/23 [facility] En[facility] [id number] 06/24 [facility] POS AIRWAY PRESSURE CPAP [id number] Diagnos is: ICD-10- CM G47.30 Sleep apnea, unspeci fied
ST AMTYSON,TONIE E P 06/26 [facility] En[facility] [id number] 07/11 [facility] Out[facility] Encounter [id number] 09/05 [facility] [place] OFFICE O/P EST MOD 30-39 MIN [id number] Diagnos is: ICD-10- CM M54.59 Other low back pain
Zaheer ESTEBAN 09/17 [facility] Out[facility] Encounter [id number] 09/19 [facility] Encounter [id number] 09/24 [facility] Encounter [id number] 09/26 [facility] Encounter [id number] 09/26 [facility] Out[facility] Encounter [id number] 09/26 [facility] Encounter [id number] 09/30 [facility] Encounter [id number] 10/02 [facility] [place] Outpatient Encounter [id number] 10/06 [facility] OFFICE O/P EST HI 40-54 MIN [id number] Diagnos is: ICD-10- CM F43.12 Post-tr aumatic stress disorde r, chronic
ST STEFANI GABRIELEN G 10/13 [place] [facility] Out[facility] Encounter [id number] 11/03 [facility] [place] Outpatient Encounter [id number] 12[facility] [id number] Diagnos is: ICD-10- CM F43.12 Post-tr aumatic stress disorde r, chronic
ST HARVEY EPHEN G 12/18 [place] [facility] Out[facility] Encounter [id number] 12/22 [facility] Encounter [id number] 02/11 [facility] Encounter [id number] 02/19 [facility] OFF[facility] O/P NEW LOW 30 MIN [id number] Diagnos is: ICD-10- CM G47.33 Obstruc tive sleep apnea (adult) (pediat sarah)
MAXWELL CERON, CTORIA J 02/22 [facility] En[facility] [id number] 02/22 [facility] Encounter [id number] 03/26 [facility] [place] [place] Outpatient Encounter [id number] 03/29 [place] OFFICE O/P EST HI 40 MIN [id number] Diagnos is: ICD-10- CM F43.12 Post-tr aumatic stress disorde r, chronic
ST TYRA GABRIEL G 04/01 [place] [facility] Outpatient Encounter [id number] 04/23 [facility] [place] [facility] ORAL DEVICE/RODDY LIANCE CUSFAB [id number] Diagnos is: ICD-10- CM G47.33 Obstruc tive sleep apnea (adult) (pediat sarah)
MAXWELL CERON,PRISCA CTORIA J 04/26 [facility] En[facility] [id number] 06/01 [facility] OFF[facility] O/P EST LOW 20 MIN [id number] Diagnos is: ICD-10- CM G47.33 Obstruc tive sleep apnea (adult) (pediat sarah)
MAXWELL CERON, CTORIA J 06/02 [facility] En[facility] [id number] 07/12 [facility] OFF[facility] O/P EST LOW 20 MIN [id number] Diagnos is: ICD-10- CM G47.33 Obstruc tive sleep apnea (adult) (pediat sarah)
PRISCA KEYES CTORIA J 07/13 [facility] OFFICE O/P EST LOW 20 MIN [id number] Diagnos is: ICD-10- CM G47.33 Obstruc tive sleep apnea (adult) (pediat sarah)
PRISCA KEYES CTORIA J 07/14 [facility] [place] En[facility] [id number] 07/15 [facility] Encounter [id number] 07/26 [facility] [place] OFF[facility] O/P EST LOW 20 MIN [id number] Diagnos is: ICD-10- CM G47.33 Obstruc tive sleep apnea (adult) (pediat sarah)
PRISCA KEYES CTORIA J 07/27 [facility] [place] Outpatient Encounter [id number] 07/29 [facility] [place] OFFICE O/P EST MOD 30 MIN [id number] Diagnos is: ICD-10- CM F43.12 Post-tr aumatic stress disorde r, chronic
ST TYRA GABRIEL G 08/05 [place] [facility] Encounter [id number] 1.09/21 [facility] Encounter [id number] 1.09/24 [facility] Out[facility] Encounter [id number] 1.10/06 [facility] Encounter [id number] 1.10/08 [facility] OFFICE O/P EST MOD 30 MIN [id number] Diagnos is: ICD-10- CM F43.12 Post-tr aumatic stress disorde r, chronic
ST TYRA GABRIEL G 10/11 [facility] [facility] [place] COMPREHENS VE ORAL EVALUATION [id number] 1. Diagnos is: ICD-10- CM G47.33 Obstruc tive sleep apnea (adult) (pediat sarah)
RPISCA KEYES CTORIA J 10/11 [facility] En[facility] [id number] 10/26 [facility] CASE MGMT-ORAL HEALTH LIT [id number] Diagnos is: ICD-10- CM K03.6 Deposit s [accret ions] on teeth<b r/> JOHNNA RODRIGUEZ 10/27 [facility] [place] [facility] OFFICE O/P EST LOW 20 MIN [id number] Diagnos is: ICD-10- CM G47.33 Obstruc tive sleep apnea (adult) (pediat sarah)
JHOANPRISCA BENSON CT[place] J 11/02 [facility] [place] [facility] Outpatient Encounter [id number] [facility] [place] [facility] Outpatient Encounter [id number] [facility] [place] [facility] [place] SYNCH AUDIO-ONLY EST LOW 20 [id number] Diagnos is: ICD-10- CM F43.12 Post-tr aumatic stress disorde r, chronic
GABRIELST KOHANNAH G 12/02 [place] [facility] Outpatient Encounter [id number] 12/02 [facility] [place] [facility] Procedures Combined list of: 1) Procedures from Department of Veterans Affairs facilities going back up to thelast 18 months, not all VA non-surgical procedures are included; 2) All procedures from the Department of Defense facilities. Procedure Procedure Type Code Date Perfomer Comments Sourc e PATIENT EDUCATION, NOT OTHERWISE CLASSIFIED, NON-PHYSICIAN PROVIDER, GROUP, PER SESSION [facility] SCREENING TEST OF VISUAL ACUITY, QUANTITATIVE, BILATERAL [facility] TYPHOID VACCINE, CAPSULAR POLYSACCHARIDE (VICPS), FOR INTRAMUSCULAR USE [facility] SCREENING TEST OF VISUAL ACUITY, QUANTITATIVE, BILATERAL [facility] HEPATITIS A AND HEPATITIS B VACCINE (HEPA-HEPB), ADULT DOSAGE, FOR INTRAMUSCULAR USE [facility] ADENOVIRUS VACCINE, TYPE 7, LIVE, FOR ORAL USE [facility] FITTING OF SPECTACLES, EXCEPT FOR APHAKIA; MONOFOCAL [facility] EAR MOLD/INSERT, NOT DISPOSABLE, ANY TYPE [facility] Screening Test Of Visual Acuity, Quantitative, Bilateral Screening Test Of Visual Acuity, Quantitative, Bilateral [address] [facility] Hepatitis A And Hepatitis B (Intramuscular Use) Adult Dosage Hepatitis A And Hepatitis B (Intramuscular Use) Adult Dosage 18957 ZAKIA LAM DoD Immunization Administration By Injection, One Vaccine Immunization Administration By Injection, One Vaccine [address] [facility] Vaccines Adenovirus Type 7 Live, For Oral Use Vaccines Adenovirus Type 7 Live, For Oral Use 39638 ROBERT REEVES A single vaccine dose adminstered orally. [facility] Vaccines Adenovirus Type 4 Live, For Oral Use Vaccines Adenovirus Type 4 Live, For Oral Use 20097 ROBERT REEVES A single vaccine dose adminstered orally. DoD Immunization Admin Intranasal / Oral Each Additional Vaccine Immunization Admin Intranasal / Oral Each Additional Vaccine 65311 ROBERT REEVES Influenza Virus Vaccine Intranasal Live Attenuated Influenza Virus Vaccine Intranasal Live Attenuated 49287 ROBERT REEVES Flumist: Each sprayer contains a single dose of Flumist; approximately one-half of the contents was administered into each nostril. Patient was observed for 15 min with no adverse reactions. DoD Immunization Admin By Intranasal / Oral Route One Vaccine Immunization Admin By Intranasal / Oral Route One Vaccine 82599 ROBERT REEVES DoD Immunization Administration By Injection, Each Additional Vaccine Immunization Administration By Injection, Each Additional Vaccine 26238 ROBERT REEVES DoD Physician Supervised Injection Intramuscular Antibiotic Physician Supervised Injection Intramuscular Antibiotic [address] [facility] Tdap Vaccine Tdap Vaccine 25869 ROBERT REEVES Visit for an IM injection of 0.5mL of Boostrix (Tetanus and Diphtheria Toxoids and Acellular Pertussis). Was given in the Right Deltoid. Patient was observed for 15 min with no adverse reactions. [facility] Meningococcal Polysaccharide Diphtheria Toxoid Conjugate Vaccine ROBERT REEVES Visit for an IM injection of 0.5mL of Meningococcal Vaccine (Menactra). Was given in the Left Deltoid. Patient was observed for 15 min with no adverse reactions. [facility] Vaccines Viral Polio, Inactivated Vaccines Viral Polio, Inactivated 95194 ROBERT REEVES Visit for an IM injection of 0.5mL of IPOL (Poliovirus Vaccine Inactivated). Was given in the Right Deltoid. Patient was observed for 15 min with no adverse reactions. [facility] Hepatitis A And Hepatitis B (Intramuscular Use) Adult Dosage Hepatitis A And Hepatitis B (Intramuscular Use) Adult Dosage 35871 ROBERT REEVES Visit for an IM injection of 1mL of Twinrix (Hepatitis A and B combination). Was given in the Right Deltoid. Patient was observed for 15 min with no adverse reactions. [facility] Injection, penicillin g benzathine, 100,000 units ROBERT REEVES Visit for an IM injection of 1.2 million/units per 2 mL of Bicillin L-A (Penicillin G Benxathine injectable suspension). Was given in the Left upper quadrant, left buttock. Patient was observed for 15 min with no adverse reactions. [facility] Skin Test Anergy Tuberculin Intradermal Skin Test Anergy Tuberculin Intradermal 28283 ROBERT REEVES Visit for intradermal tuberculin testing of 0.1mL of Mantoux (Tuberculin Purified Protein Derivative). Was given in the Left forearm, volar surface. Patient was observed for 15 min with no adverse reactions. [facility] Spectacles Services Fitting Monofocal Except For Aphakia Spectacles Services Fitting Monofocal Except For Aphakia 58030 AVI ROSAS Determination Of Refractive State Determination Of Refractive State 46964 AVI ROSAS Ophthalmological New Patient Start Comprehensive Care Ophthalmological New Patient Start Comprehensive Care 58795 AVI ROSAS Ear mold/insert, not disposable, any type CHERIE GONZALES Physician Supervised Group Educational Services Physician Supervised Group Educational Services 40102 CHERIE GONZALES Audiometry Group Testing Audiometry Group Testing [address] [facility] Screening Test Of Visual Acuity, Quantitative, Bilateral Screening Test Of Visual Acuity, Quantitative, Bilateral [address] [facility] Threshold Audiogram (Pure Tone) Automated Threshold Audiogram (Pure Tone) Automated 0208T RIKKI CORBIN [facility] Patient education, not otherwise cla ified, non-physician provider, group, per se ion RIKKI CORBIN [facility] Social History Combined list of available smoking, tobacco, and other social history from Department of Defense and Veterans Affairs facilities. Social History Type Response Date Comment Sourc e Tobacco smoking status NHIS VA-TOBACCO NEVER USED 11/20/2022 [facility] D History of tobacco use VA-TOBACCO NEVER USED 11/26/2021 [facility] D History of tobacco use VA-TOBACCO NEVER USED 04/21/2020 [facility] [place] [facility] This section is an empty social history section. [facility] Plan of Care List of future care activities from Department of Veterans Affairs facilities. Additional future care activities may be listed in the Assessment and Plan section. Date/Time Care Activity Care Activity Detail Facili 12/23/2024 AMBULATORY - MEDICINE AMBULATORY - MEDICI [place] [facility] [place] [facility] 12/23/2024 AMBULATORY - MEDICINE AMBULATORY - MEDICI [place] [facility] [place] [facility] 12/30/2024 AMBULATORY - NONE AMBULATORY - NONE [facility] [place] [facility] 01/20/2025 AMBULATORY - [facility]/12/[facility]25 AMBULATORY - MEDICINE AMBULATORY - MEDICI [place] [facility] [place] [facility] 04/26/2025 AMBULATORY - NONE AMBULATORY - NONE [facility] [place] [facility] 11/02/2024 Consult Order COMMUNITY CARE-D ENTAL SPECIALTY [employer] Specialist's Choice [facility] [place] [facility] 11/02/2024 Consult Order HOME SLEEP STUDY NOX/SPOPC OUTPT [employer] Specialist's Choice [facility] 12/02/2024 Consult Order COMMUNITY CARE-B H PSYCHOTHERAPY [employer] Specialist's Choice [facility] [place] [facility]
--- OUTSIDE RECORDS SUMMARY | 2024-12-08 08:05 | XMS_ITS | Encounter Summary ---
Author Organization [facility] Address [address] [place] [address] Care Team Providers Care Double End Trimmer Name Role Phone Unavailable Primary Care Provider Unavailabl e Encounter Details Date Type Department Care Team (Late st Contact Info) Description 06/16/2020 Lab Requisition [facility] Testing [address] [phone] Michele Hwang PA-C [address] [place] [address] Encounter for laboratory testing for COVID-19 virus Social History Tobacco Use Types Packs/Day Years Used Date Smoking Tobacco: Never Assessed Sex and Gender Information Value Date Recorded Sex Assigned at Not on file Gender Identity Not on file Sexual Orientation Not on file documented as of this encounter Plan of Treatment Not on file documented as of this encounter Procedures Procedure Name Priority Date/Time Associated Diagnosis Comments SARS COV-2 RNA (COVID-19), QUAL Routine 06/16/2020 1:24 PM EDT Encounter for laboratory testing for COVID-19 virus [ICD-10-CM] documented in this encounter Results * SARS CoV-2 RNA (COVID-19), Qual (06/16/2020 1:24 PM EDT) SARS CoV 2 RNA, Qual NOT DETECTED NOT DETECTED 06/17/2020 3:[address] [facility] Comment: A Not Detected (negative) test result for this test means that SARS-CoV-2 RNA was not present in the specimen above the limit of detection. A negative result does not rule out the possibility of COVID-19 and should not be used as the sole basis for treatment or patient management decisions. If COVID-19 is still suspected, based on exposure history together with other clinical findings, re-testing should be considered in consultation with public health authorities. Laboratory test results should always be considered in the context of clinical observations and epidemiological data in making a final diagnosis and patient management decisions. REFERENCE RANGE: ??NOT DETECTED This patient specimen was tested using an FDA EUA pooling method. Negative results from pooled testing should not be treated as definitive. ??If the patient's clinical signs and symptoms are inconsistent with a negative result or results are necessary for patient management, then the patient should be considered for individual testing. Specimens with low viral loads may not be detected in sample pools due to the decreased sensitivity of pooled testing. Please review the Fact Sheets and FDA authorized labeling available for health care providers and patients using the following websites: https://www.Mirage Networks.MutualMind/home/Covid-19/HCP/QuestLDTP/ fact-sheet https://www.Floqq/home/Covid19/Patients/QuestLDTP/ fact-sheet.html This test has been authorized by the FDA under an Emergency Use Authorization (EUA) for use by authorized laboratories. Due to the current public health emergency, [employer] is receiving a high volume of samples from a wide variety of swabs and media for COVID-19 testing. In order to serve patients during this public health crisis, samples from appropriate clinical sources are being tested. Negative test results derived from specimens received in non-commercially manufactured viral collection and transport media, or in media and sample collection kits not yet authorized by FDA for COVID-19 testing should be cautiously evaluated and the patient potentially subjected to extra precautions such as additional clinical monitoring, including collection of an additional specimen. Methodology: ??Nucleic Acid Amplification Test (NAAT) includes PCR or TMA ?? Additional information about COVID-19 can be found at the [employer] website: www.Accessory Addict Society.MutualMind/Covid19. Microbiology Nasopharyngeal swab / Unknown 06/16/2020 1:24 PM EDT 06/16/2020 1:24 PM EDT [facility] - 06/17/2020 3:00 PM EDT Performing Organization Information: ?Site ID: [id number] ?Name: [employer] ?Address: [address] [place] [address],[place] [address] ?Director: JAMIA CANNON MD [facility] at [facility] License number [id number] Michele Hwang PA-C MICROBIOLOGY - NERAL ORDERABLES Performing Organization Address City/State/[facility] Co de Phone Number [facility] documented in this encounter Visit Diagnoses Diagnosis Encounter for laboratory testing for COVID-19 virus documented in this encounter
--- OUTSIDE RECORDS SUMMARY | 2024-12-08 08:05 | XMS_ITS | Encounter Summary ---
Author Organization [facility] Address [address] [place] [address] Care Team Providers Care Defective Cigarette Slitter Name Role Phone Unavailable Primary Care Provider Unavailabl e Encounter Details Date Type Department Care Team (Late st Contact Info) Description 09/08/2020 Lab Requisition [facility] Lab DOC: Raudel Rodriguez [address] [place] [phone] Michele Hwang PA-C [address] [place] [address] Encounter for laboratory testing for COVID-19 virus [...] Comments SARS COV-2 RNA (COVID-19), QUAL Routine 09/08/2020 3:27 PM EDT Encounter for laboratory testing for COVID-19 virus [ICD-10-CM] documented in this encounter Results * SARS CoV-2 RNA (COVID-19), Qual (09/08/2020 3:27 PM EDT) Pathologist [facility] SARS CoV 2 RNA, Qual NOT DETECTED NOT DETECTED 09/10/2020 5:00 AM EDT [facility] Comment: A Not Detected (negative) test [...] providers and patients using the following websites: https://www.EnergyDeck.[facility]/home/Covid-19/HCP/QuestLDTP/ fact-sheet https://www.EnergyDeck.[facility]/home/Covid-19/Patients/QuestLDTP/ fact-sheet.html This test has been authorized by the FDA under an Emergency Use Authorization (EUA) for use by authorized laboratories. Due to the current public health emergency, [employer] is receiving a high volume of samples [...] Methodology: ??Nucleic Acid Amplification Test (NAAT) includes RT-PCR or TMA ?? Additional information about COVID-19 can be found at the [employer] website: www.Pavilion Data.[facility]/Covid19. Microbiology Nasopharyngeal swab / Unknown 09/08/2020 3:27 PM EDT 09/08/2020 3:27 PM EDT Narrative [facility] - 09/10/2020 5:00 AM EDT Performing Organization Information: ?Site ID: [id number] ?Name: [employer] ?Address: [address] [place] [address],[place] [address] ?Director: JAMIA CANNON MD [facility]formed at [facility] License number [id number] Michele Hwang PA-C MICROBIOLOGY - NERWV ORDERABLES Performing Organization Address City/State/[facility] Co de Phone Number [facility] documented in this encounter Visit Diagnoses Diagnosis Encounter for laboratory testing for COVID-19 virus documented in this encounter
--- OUTSIDE RECORDS SUMMARY | 2024-12-08 08:05 | XMS_ITS ---
Author Organization [facility] Address [address] [address] Care Team Providers Care Die Repair Machinist Name Role Phone Nena Ortiz Primary Care Provider Allergies No Known Allergies REASON FOR VISIT [facility] Medications Medication SIG (Take, Route, Frequency, Duration) Notes Start Date End Date Status Doxycycline Hyclate 100 MG 1 capsule Ora lly twice a day for 7 days 11/24/2024 12/01/2024 Active Encounters Encounter Location Date Provider Diagnosis [facility] [address] [facility] [place] [address] 11/24/2024 Nena Ortiz Plan Of Treatment Medication Medication Name Sig Start Date Stop Date Notes Doxycycline Hyclate 100 MG 1 capsule Ora lly twice a day for 7 days 11/24/2024 12/01/2024 Next Appt Details Provider Name:Nena huston, 12/20/2024 10:00:00 AM, [address] [facility], [place], [address], Progress Notes * TIFFANY LaraOB:1990 (34 yo M)Acc No.[id number]:11/24/2024 Patient:?Thuan ALLEN :1990???Age:34 Y???Sex:Male Address:[address] [place] [address] [place], [address] * Refills? Start Doxycycline Hyclate Capsule, 100 MG, Orally, 14 Capsule, 1 capsule, twice a day, 7 days Subjective: * Chief Complaints: * ???[facility] * Medical History:? * Surgical History:? * Hospitalization/Major Diagno stic Procedure:? * Medications:? * Allergies:?N.K.D.A.no[Allerg ies Verified] Objective: * Vitals:? * Physical Examination:? Assessment: Plan: * Treatment: * Procedure Codes:? * true * Date:? Generated for Faizan lundberg/Barbra/Tapan on:?12/08/2024 08:05 AM EST
--- OUTSIDE RECORDS SUMMARY | 2024-12-08 08:05 | XMS_ITS | Clinical Summary ---
Author Organization [facility] Address [address] [place] [address] Care Team Providers Care Product Designer Name Role Phone Rosamaria Sam MD Primary Care Provider Allergies No known active allergies Medications No known medications Active Problems No known active problems Social History Tobacco Use Types Packs/Day Years Used Date Smoking Tobacco: Never Assessed Sex and Gender Information Value Date Recorded Sex Assigned at Male 07/03/2024 9:46 AM EDT Gender Identity Not on file Sexual Orientation Not on file Job Start Date Occupation Industry Not on file Not on file Not on file Last Filed Vital Signs Vital Sign Reading Time Taken Comments Blood Pressure 140/93 07/03/2024 9:31 AM EDT Pulse 94 07/03/2024 9:31 AM EDT Temperature 37 ??C (98.6 ??F) 07/03/2024 9:31 AM EDT Respiratory Rate 20 07/03/2024 9:31 AM EDT Oxygen Saturation 96% 07/03/2024 9:31 AM EDT Inhaled Oxygen Concentration - - Weight 127 kg (280 lb) 07/03/2024 9:31 AM EDT Height 180.3 cm (5' 11 ) 07/03/2024 9:31 AM EDT Body Mass Index 39.05 07/03/2024 9:31 AM EDT Plan of Treatment Health Maintenance Due Date Last Done Comments Hepatitis C Screening 1990 DTap / Tdap / Td (2 - Tdap) 09/15/2002 09/14/2002 Depression Screening 2002 Preventative Health Evaluation 2008 COVID-19 Vaccine ( season) 2024 08/16/2021, 07/26/2021 Influenza Vaccine (#1) 2024 2, 2021, 01/05/2021, Additional history exists Hepatitis B Vaccines Completed 08/20/2014, 09/13/2013, 07/30/2013 Pneumococcal Vaccine Aged Out No long er eligible based on patient's age to complete this topic RSV Ped < 20 months Aged Out No longe r eligible based on patient's age to complete this topic Care Teams Product Designer Relationship Specialty Start Date End Date Flaco, Rosamaria Jerome MD [address] [place] [address] [address] [facility] [place] [address] PCP - General Internal Medicine 07/03/24
--- OUTSIDE RECORDS SUMMARY | 2024-12-08 08:05 | XMS_ITS | Clinical Summary ---
Author Organization [facility] Address [address] [place] [address] Care Team Providers Care Plant Floor Automation Manager Name Role Phone Unavailable Primary Care Provider Unavailabl e Social History Tobacco Use Types Packs/Day Years Used Date Smoking Tobacco: Never Assessed Sex and Gender Information Value Date Recorded Sex Assigned at Not on file Gender Identity Not on file Sexual Orientation Not on file Plan of Treatment Health Maintenance Due Date Last Done Comments Hepatitis C Virus Screening 1990 HIV Screening 2003 DTaP/Tdap/Td Vaccines (1 - Tdap) 2009 Hepatitis B Vaccines (1 of 3 - 19+ 3-dose series) 2009 COVID-19 Vaccine (2023-2 5 season) 2024 HPV Vaccines Aged Out No longer eligi ble based on patient's age to complete this topic Pneumococcal Vaccine: Pediat sarah (0-5 Years) and At-Risk Patients (6 to 49 Years) Aged Out No longer eligible b ased on patient's age to complete this topic
--- OUTSIDE RECORDS SUMMARY | 2024-12-08 08:05 | XMS_ITS | Encounter Summary ---
Author Organization [facility] Address [address] [place] [address] Care Team Providers Care Machine Operator Name Role Phone Unavailable Primary Care Provider Unavailabl e Encounter Details Date Type Department Care Team (Late st Contact Info) Description 07/28/2020 Lab Requisition [facility] Testing [address] [phone] Michele Hwang PA-C [address] [place] [address] Encounter for laboratory testing for COVID-19 virus [...] Comments SARS COV-2 RNA (COVID-19), QUAL Routine 07/28/2020 3:29 PM EDT Encounter for laboratory testing for COVID-19 virus [ICD-10-CM] documented in this encounter Results * SARS CoV-2 RNA (COVID-19), Qual (07/28/2020 3:29 PM EDT) SARS CoV 2 RNA, Qual NOT DETECTED NOT DETECTED 08/01/2020 6:[address] [facility] Comment: [...] providers and patients using the following websites: https://www.Windowfarms.[employer]us Industries/home/Covid-19/HCP/QuestLDTP/ fact-sheet https://www.Spectrum Bridge/home/Covid-19/Patients/QuestLDTP/ fact-sheet.html This test has been authorized by the FDA under an Emergency Use Authorization (EUA) for use by authorized laboratories. Due to the current public health emergency, [employer] is receiving a high volume of samples [...] about COVID-19 can be found at the [employer] website: www.DataCore Software.Proteus Industries/Covid19. Microbiology Nasopharyngeal swab / Unknown 07/28/2020 3:29 PM EDT 07/28/2020 3:29 PM EDT [facility] - 08/01/2020 6:00 PM EDT Performing Organization Information: ?Site ID: [id number] ?Name: [employer] ?Address: [address] [place] [address],[place] [address] ?Director: JAMIA CANNON MD Performed at [facility] License number [id number] Michele Hwang PA-C MICROBIOLOGY - NERAL ORDERABLES Performing Organization Address City/State/[facility] Co de Phone Number [facility] documented in this encounter Visit Diagnoses Diagnosis Encounter for laboratory testing for COVID-19 virus documented in this encounter
--- OUTSIDE RECORDS SUMMARY | 2024-12-08 08:05 | XMS_ITS | Encounter Summary ---
Author Organization [facility] Address [address] [place] [address] Care Team Providers Care Glass Technologist Name Role Phone Unavailable Primary Care Provider Unavailabl e Encounter Details Date Type Department Care Team (Late st Contact Info) Description 09/22/2020 Lab Requisition [facility] Testing [address] [phone] Michele Hwang PA-C [address] [place] [address] Encounter for laboratory testing for COVID-19 virus [...] Comments SARS COV-2 RNA (COVID-19), QUAL Routine 09/22/2020 3:25 PM EST Encounter for laboratory testing for COVID-19 virus [ICD-10-CM] documented in this encounter Results * SARS CoV-2 RNA (COVID-19), Qual (09/22/2020 3:25 PM EST) Pathologist [facility] SARS CoV 2 RNA, Qual NOT DETECTED NOT DETECTED 09/24/2020 7:00 PM EST [facility] Comment: A Not Detected (negative) test [...] providers and patients using the following websites: https://www.Konnecti.com.ChosenList.com/home/Covid-19/HCP/QuestLDTP/ fact-sheet https://www.JobSlot/home/Covid-19/Patients/QuestLDTP/ fact-sheet.html This test has been authorized by the FDA under an Emergency Use Authorization (EUA) for use by authorized laboratories. Due to the current public health emergency, [employer] is receiving a high volume of samples [...] about COVID-19 can be found at the [employer] website: www.Perfect Storm Media.ChosenList.com/Covid19. Microbiology Nasopharyngeal swab / Unknown 09/22/2020 3:25 PM EST 09/22/2020 3:25 PM EST [facility] - 09/24/2020 7:00 PM EST Performing Organization Information: ?Site ID: [id number] ?Name: [employer] ?Address: [address] [place] [address],[facility] [place] [address] ?Director: JAMIA CANNON MD Performed at [facility] License number [id number] Michele Hwang PA-C MICROBIOLOGY - NERAL ORDERABLES Performing Organization Address City/State/[facility] Co de Phone Number [facility] documented in this encounter Visit Diagnoses Diagnosis Encounter for laboratory testing for COVID-19 virus documented in this encounter
--- OUTSIDE RECORDS SUMMARY | 2024-12-08 08:05 | XMS_ITS | Encounter Summary ---
Author Organization [facility] Address [address] [place] [address] Care Team Providers Care Rubber Press Operator Name Role Phone Unavailable Primary Care Provider Unavailabl e Encounter Details Date Type Department Care Team (Late st Contact Info) Description 08/18/2020 Lab Requisition [facility] Testing [address] [phone] Michele Hwang PA-C [address] [place] [address] Encounter for laboratory testing for COVID-19 virus [...] Comments SARS COV-2 RNA (COVID-19), QUAL Routine 08/18/2020 3:51 PM EDT Encounter for laboratory testing for COVID-19 virus [ICD-10-CM] documented in this encounter Results * SARS CoV-2 RNA (COVID-19), Qual (08/18/2020 3:51 PM EDT) SARS CoV 2 RNA, Qual NOT DETECTED NOT DETECTED 08/20/2020 12:00 AM EDT [facility] Comment: A Not Detected (negative) test result [...] providers and patients using the following websites: https://www.Welcome Funds.Code Climate/home/Covid-19/HCP/QuestLDTP/ fact-sheet https://www.Outracks Technologies/home/Covid-19/Patients/QuestLDTP/ fact-sheet.html This test has been authorized by the FDA under an Emergency Use Authorization (EUA) for use by authorized laboratories. Due to the current public health emergency, [employer] is receiving a high volume of samples [...] about COVID-19 can be found at the [employer] website: www.A Little Easier Recovery.Code Climate/Covid19. Microbiology Nasopharyngeal swab / Unknown 08/18/2020 3:51 PM EDT 08/18/2020 3:51 PM EDT [facility]IE [facility] - 08/20/2020 12:00 AM EDT Performing Organization Information: ?Site ID: [id number] ?Name: [employer] ?Address: [address] [place] [address],[place] [address] ?Director: JAMIA CANNON MD Performed at [facility] License number [id number] Michele Hwang PA-C MICROBIOLOGY - NERAL ORDERABLES Performing Organization Address City/State/[facility] Co de Phone Number [facility] documented in this encounter Visit Diagnoses Diagnosis Encounter for laboratory testing for COVID-19 virus documented in this encounter
--- OUTSIDE RECORDS SUMMARY | 2024-12-08 08:05 | XMS_ITS | Clinical Summary ---
Author Organization [facility] Address [address] [place] [address] Care Team Providers Care Mining Technician Name Role Phone Rosamaria Sam MD Primary Care Provider [phone] Immunizations Name Administration Dates Next Due Pfizer SARS-CoV-2 COVID-19, mRNA, LNP-S, preservative free 08/16/2021,07/26/2021 Social History Tobacco Use Types Packs/Day Years Used Date Smoking Tobacco: Never Assessed Sex and Gender Information Value Date Recorded Sex Assigned at Not on file Gender Identity Not on file Sexual Orientation Not on file Obstetrics History Plan of Treatment Health Maintenance Due Date Last Done Comments Hepatitis B Vaccines (1 of 3 - 19+ 3-dose series) 2009 Cholesterol Screening (Lipid Panel) 10/20/2022 Depression Screening 10/20/2022 HIV Screening 10/20/2022 Hepatitis C Screening 10/20/2022 Social Influencers of Health Screening 10/20/2022 DTaP,Tdap,and Td Vaccines (2 - Td or Tdap) 09/17/2023 09/17/2013 COVID-19 Vaccine (2023-2 5 season) 2024 08/16/2021, 07/26/2021 Influenza Vaccine (#1) 2024 , 01/05/2021 HIB Vaccines Aged Out No longer eligi ble based on patient's age to complete this topic HPV Vaccines Aged Out No longer eligi ble based on patient's age to complete this topic Hepatitis A Vaccines Aged Out No long er eligible based on patient's age to complete this topic IPV Vaccines Aged Out No longer eligi ble based on patient's age to complete this topic MMR Vaccines Aged Out No longer eligi ble based on patient's age to complete this topic Meningococcal ACWY Vaccine Aged Out N o longer eligible based on patient's age to complete this topic Pneumococcal Vaccine: Pediatrics (0 to 5 Years) and At-Risk Patients (6 to 64 Years) Aged Out No longer eligible b ased on patient's age to complete this topic RSV Immunization Patients Under 20 months Aged Out No longer eligible b ased on patient's age to complete this topic Varicella Vaccines Aged Out No longer eligible based on patient's age to complete this topic Care Teams Mining Technician Relationship Specialty Start Date End Date Rosamaria Sam MD [address] [place] [address] [address] [facility] [place] [address] PCP - General 07/03/24
--- OUTSIDE RECORDS SUMMARY | 2024-12-08 08:06 | XMS_ITS ---
Author Organization [facility] Address [address] [place] [address] Care Team Providers Care Senior Systems Software Engineer Name Role Phone Nena Ortiz Primary Care Provider REASON FOR VISIT [facility] Urology Encounters Encounter Location Date Provider Diagnosis [facility] [address] [place] [address] 11/23/2024 Nena Ortiz Plan Of Treatment Next Appt Details Provider Name:Nena huston, 12/20/2024 10:00:00 AM, [address], [address], [place], [address], Progress Notes * Feliciano ALLENsDOB:1990 (34 yo M)Acc No.[id number]:11/23/2024 Patient:?ALLEN Thuan :1990???Age:34 Y???Sex:Male Address:[facility] [place], [address] * * Date:?
--- OUTSIDE RECORDS SUMMARY | 2024-12-08 08:06 | XMS_ITS ---
Author Organization [facility] Address [address] [place] [address] Care Team Providers Care Slurry Plant Operator Name Role Phone Nena Ortiz Primary Care Provider [phone] REASON FOR VISIT Urine cytology Encounters Encounter Location Date Provider Diagnosis [facility] [address] [place] [address] 11/20/2024 Nena Ortiz Plan Of Treatment Next Appt Details Provider Name:Nena huston, 12/20/2024 10:00:00 AM, [address], [address], [place], [address], Progress Notes * ALLEN, LaraOB:1990 (34 yo M)Acc No.[id number]:11/20/2024 Patient:?Thuan ALLEN :1990???Age:34 Y???Sex:Male Address:[facility] [place], [address] * true * Date:? Generated for Cassyi tamika/Barbra/eTransmitting on:?12/08/2024 08:05 AM EST
--- OUTSIDE RECORDS SUMMARY | 2024-12-08 08:06 | XMS_ITS | Patient Health Record ---
Author Organization [facility] Address [address] [address] Care Team Providers Care Signals Officer Name Role Phone Nena Ortiz Primary Care Provider [phone] Allergies No Known Allergies Results Component Value Reference Range Notes URINALYSIS, COMPLETE W/REFLE X TO CULTURE Reviewed date:11/28/2024 09:26:19 AM Interpretation: Performing Lab:NL1, [facility] [id number] [place], [place] [id number] Jamia Cannon M.D. Notes/Report: FASTING: NO COLOR YELLOW YELLOW APPEARANCE TURBID CLEAR SPECIFIC GRAVITY 1.029 1.001-1.035 PH 5.5 5.0-8.0 GLUCOSE NEGATIVE NEGATIVE BILIRUBIN NEGATIVE NEGATIVE KETONES TRACE NEGATIVE OCCULT BLOOD NEGATIVE NEGATIVE PROTEIN TRACE NEGATIVE NITRITE NEGATIVE NEGATIVE LEUKOCYTE ESTERASE NEGATIVE NEGATIVE WBC NONE SEEN < OR = 5 /HPF RBC NONE SEEN < OR = 2 /HPF SQUAMOUS EPITHELIAL CELLS NONE SEEN < OR = 5 /HPF BACTERIA FEW NONE SEEN /HPF CALCIUM OXALATE CRYSTALS MANY NONE OR FEW /HPF HYALINE CAST NONE SEEN NONE SEEN /LPF NOTE This urine was analyzed for the presence of WBC, RBC, bacteria, casts, and other formed elements. Only those elements seen were reported. REFLEXIVE URINE CULTURE NO C ULTURE INDICATED COMPREHENSIVE METABOLIC PANE L Reviewed date:11/13/2024 09:17:35 PM Interpretation: Performing Lab:NL1, [facility] [address] Jamia Cannon M.D. Notes/Report: GLUCOSE 96 65-99 mg/dL Fasting reference interval UREA NITROGEN (BUN) 13 7-25 mg/dL CREATININE 1.10 0.60-1.26 mg/dL EGFR 90 > OR = 60 mL/min/1.73m2 BUN/CREATININE RATIO SEE NOTE: 6-22 (calc) Not Reported: BUN and Creatinine are within reference range. SODIUM 139 135-146 mmol/L POTASSIUM 3.9 3.5-5.3 mmol/L CHLORIDE 105 98-110 mmol/L CARBON DIOXIDE 27 20-32 mmol/L CALCIUM 9.2 8.6-10.3 mg/dL PROTEIN, TOTAL 7.0 6.1-8.1 g/dL ALBUMIN 4.5 3.6-5.1 g/dL GLOBULIN 2.5 1.9-3.7 g/dL (calc) ALBUMIN/GLOBULIN RATIO 1.8 1.0-2.5 (calc) BILIRUBIN, TOTAL 0.5 0.2-1.2 mg/dL ALKALINE PHOSPHATASE 45 36-130 U/L AST 20 10-40 U/L ALT 25 9-46 U/L CBC (INCLUDES DIFF/PLT) Reviewed date:11/13/2024 09:17:35 PM Interpretation: Performing Lab:NL1, [facility] [id number] [place], [place] [id number] Jamia Cannon M.D. Notes/Report: WHITE BLOOD CELL COUNT 5.2 3.8-10.8 Thousand/ uL RED BLOOD CELL COUNT 5.29 4.20-5.80 Million/uL HEMOGLOBIN 14.2 13.2-17.1 g/dL HEMATOCRIT 43.3 38.5-50.0 % MCV 81.9 80.0-100.0 fL MCH 26.8 27.0-33.0 pg MCHC 32.8 32.0-36.0 g/dL For adults, a slight decrease in the calculated MCHC value (in the range of 30 to 32 g/dL) is most likely not clinically significant; however, it should be interpreted with caution in correlation with other red cell parameters and the patient's clinical condition. RDW 13.2 11.0-15.0 % PLATELET COUNT 255 140-400 Thousand/uL MPV 10.0 7.5-12.5 fL ABSOLUTE NEUTROPHILS 2865 1657-1988 cells/uL ABSOLUTE LYMPHOCYTES 6765 937-3945 cells/uL ABSOLUTE MONOCYTES 458 200-950 cells/uL ABSOLUTE EOSINOPHILS 276 15-500 cells/uL ABSOLUTE BASOPHILS 31 0-200 cells/uL NEUTROPHILS 55.1 LYMPHOCYTES 30.2 MONOCYTES 8.8 EOSINOPHILS 5.3 BASOPHILS 0.6 URINALYSIS, COMPLETE W/REFLE X TO CULTURE Reviewed date:11/13/2024 09:17:35 PM Interpretation: Performing Lab:[facility] [address] Jamia Cannon M.D. Notes/Report: COLOR YELLOW YELLOW APPEARANCE CLEAR CLEAR SPECIFIC GRAVITY 1.022 1.001-1.035 PH < OR = 5.0 5.0-8.0 GLUCOSE NEGATIVE NEGATIVE BILIRUBIN NEGATIVE NEGATIVE KETONES NEGATIVE NEGATIVE OCCULT BLOOD NEGATIVE NEGATIVE PROTEIN NEGATIVE NEGATIVE NITRITE NEGATIVE NEGATIVE LEUKOCYTE ESTERASE NEGATIVE NEGATIVE WBC NONE SEEN < OR = 5 /HPF RBC NONE SEEN < OR = 2 /HPF SQUAMOUS EPITHELIAL CELLS NONE SEEN < OR = 5 /HPF BACTERIA NONE SEEN NONE SEEN /HPF HYALINE CAST NONE SEEN NONE SEEN /LPF NOTE This urine was analyzed for the presence of WBC, RBC, bacteria, casts, and other formed elements. Only those elements seen were reported. REFLEXIVE URINE CULTURE NO C ULTURE INDICATED C-REACTIVE PROTEIN Reviewed date:11/13/2024 09:17:35 PM Interpretation: Performing Lab:[facility] [address] Jamia Cannon M.D. Notes/Report: C-REACTIVE PROTEIN 9.7 <8.0 mg/L HEMOGLOBIN A1c Reviewed date:11/13/2024 09:17:35 PM Interpretation: Performing Lab:[facility] [address] Jamia Cannon M.D. Notes/Report: HEMOGLOBIN A1c 5.5 <5.7 % of total Hgb For the purpose of screening for the presence of diabetes: <5.7% Consistent with the absence of diabetes 5.7-6.4% Consistent with increased risk for diabetes (prediabetes) > or =6.5% Consistent with diabetes This assay result is consistent with a decreased risk of diabetes. Currently, no consensus exists regarding use of hemoglobin A1c for diagnosis of diabetes in children. According to [place] Diabetes Association (ADA) guidelines, hemoglobin A1c <7.0% represents optimal control in non- diabetic patients. Different metrics may apply to specific patient populations. Standards of Medical Care in Diabetes(ADA). VITAMIN B12 Reviewed date:11/13/2024 09:17:35 PM Interpretation: Performing Lab:[facility], [facility] [address] Jamia Cannon M.D. Notes/Report: VITAMIN B12 065 734-3885 pg/mL QUEST[facility] 25-OH VIT D, (D 2,D3), LC/MS/MS Reviewed date:11/13/2024 09:17:35 PM Interpretation: Performing Lab:[facility], [facility] [address] Jamia Cannon M.D. Notes/Report: VITAMIN D,25-OH,TOTAL,IA 28 30-100 ng/mL Vitamin D Status 25-OH Vitamin D: Deficiency: <20 ng/mL Insufficiency: 20 - 29 ng/mL Optimal: > or = 30 ng/mL For 25-OH Vitamin D testing on patients on D2-supplementation and patients for whom quantitation of D2 and D3 fractions is required, the QuestAssureD(TM) 25-OH VIT D, (D2,D3), LC/MS/MS is recommended: order code 05295 (patients >2yrs). See Note 1 Note 1 For additional information, please refer to http://education.Cervilenz.com/faq/YZT339 (This link is being provided for informational/ educational purposes only.) URINE CYTOLOGY Reviewed date:11/28/2024 09:26:19 AM Interpretation: Performing Lab:[facility], [facility] [address] Jamia Cannon M.D. Notes/Report: SCREENER PRESLEY NEWMAN(ASCP) CT screening location: [place] [address] PATHOLOGIST Néstor Diaz M.D., Board Certified in Anatomic Pathology, Clinical Pathology and Cytopathology (electronic signature) A SOURCE Urine A PROCEDURE Cytology A GROSS DESCRIPTION The name on the container is in agreement with the requisition. 50 ml of clear, pale yellow fluid, received in Cytolyt fixative and processed by the ThinPrep method. (DC)11/16/2024 Gross exam(s) performed at: [facility] [address] [address] Senior Test Analyst: JAMIA CANNON MD A DIAGNOSIS NEGATIVE FOR HIGH-GRADE UROTHELIAL CARCINOMA. - BENIGN UROTHELIAL AND SQUAMOUS CELLS PRESENT. CLIENT EDUCATION TRACKING Reviewed date:11/28/2024 09:26:19 AM Interpretation: Performing Lab:[facility], [facility] [place], [place] [id number] Jamia Cannon M.D. Notes/Report: FASTING: NO CLIENT EDUCATION TRACKING The Requisition we received did not include a [employer] account number. To prevent delays in testing and processing of your orders please provide the following information with every order submitted: [facility] account number and account name Client address Client phone and fax number NPI number of ordering physician along with the physician name. IRON, TIBC AND FERRITIN PANE L Reviewed date:11/13/2024 09:17:35 PM Interpretation: Performing Lab:NL1, [facility] [address] Jamia Cannon M.D. Notes/Report: IRON, TOTAL 55 50-180 mcg/dL IRON BINDING CAPACITY 244 250-425 mcg/dL (juan jose c) % SATURATION 23 20-48 % (calc) FERRITIN 109 38-380 ng/mL LIPID PANEL WITH REFLEX TO D IRECT LDL Reviewed date:11/13/2024 09:17:35 PM Interpretation: Performing Lab:[facility], [facility] [address] Jamia Cannon M.D. Notes/Report: CHOLESTEROL, TOTAL 132 <200 mg/dL HDL CHOLESTEROL 30 > OR = 40 mg/dL TRIGLYCERIDES 180 <150 mg/dL LDL-CHOLESTEROL 74 Reference range: <100 Desirable range <100 mg/dL for primary prevention; <70 mg/dL for patients with CHD or diabetic patients with > or = 2 CHD risk factors. LDL-C is now calculated using the Pradip-Fern calculation, which is a validated novel method providing better accuracy than the Friedewald equation in the estimation of LDL-C. Pradip CARDENAS et al. BOBBI. 2013;310(19): 9786-8771 (http://education.Campalyst/faq/QYJ114) CHOL/HDLC RATIO 4.4 <5.0 (calc) NON HDL CHOLESTEROL 102 <130 mg/dL (calc) For patients with diabetes plus 1 major ASCVD risk factor, treating to a non-HDL-C goal of <100 mg/dL (LDL-C of <70 mg/dL) is considered a therapeutic option. TSH+FREE T4 Reviewed date:11/13/2024 09:17:35 PM Interpretation: Performing Lab:NL1, [facility] [id number] [place], [place] [id number] Jamia Cannon M.D. Notes/Report: TSH 5.55 0.40-4.50 mIU/L T4, FREE 1.1 0.8-1.8 ng/dL Reason For Referral Reason P with flank pain an d calcium residue on urinalysis Diagnosis 1 Flank pain (R10.9) Diagnosis 2 Calcium oxalate yo tals in urine (R82.998) Referral Organization [facility] Referring Provider First Name Nena Referring Provider Last Name Diana Referring Provider Speciality Internal M edicine Referred Provider Ephraim Espinal Referred Provider Specialty Urology Referral Priority Routine Medications Medication SIG (Take, Route, Frequency, Duration) Notes Start Date End Date Status Ubrelvy 100 MG TAKE 1/2-1 TABLET ON CE NEEDED AT ONSET OF MIGRAINE. MAY REPEAT IN 2 HOURS UP TO MAX 2 TABS/DAY Oral for 30 Days Active Cyclobenzaprine HCl 5 MG TAKE 1 TABLET B Y MOUTH EVERYDAY AT BEDTIME Oral for 20 Days Active Albuterol Sulfate HFA 108 (9 0 Base) MCG/ACT INHALE 2 PUFFS EVERY 6 HOURS NEEDED FOR SHORTNESS OF BREATH OR WHEEZING Inhalation for 20 Days Active Oseltamivir Phosphate 75 MG TAKE 1 CAPSU LE BY MOUTH TWICE A DAY FOR 5 DAYS Oral for 5 Days Active Meloxicam 15 MG TAKE 1 TABLET BY AIDAN TH EVERY DAY Oral for 30 Days Active Rizatriptan Benzoate 10 MG PLEASE SEE AT TACHED FOR DETAILED DIRECTIONS Oral for 30 Days Active Sertraline HCl 25 MG Oral for 60 Days Active Social History Tobacco Use: Social History Observation Description Date Details (start date - stop date) Never Smoker NA - NA Tobacco Control (Standard) Question Answer Notes Tobacco use: Nonsmoker Problems Problem Type SNOMED Code ICD Code Onset Dates Problem Status W/U Status Risk Notes Problem 95663406 Vitamin D deficiency (E55.9) Active confirmed Problem Mood disorder (51718830) Mood disorder (F39) Active confirmed Problem 622158687 Fatty liver (K76.0) Active confirmed Problem 309962567 Mild intermitten t asthma without complication (J45.20) Active confirmed Problem 03260648 Hypertension, unspecified type (I10) Active confirmed Problem 31242333 Other migraine without status migrainosus, not intractable (G43.809) Active confirmed Vital Signs Heart Rate 68 /min 11/18/2024 Respiratory Rate 15 /min 09/17/2024 Oximetry 98 % 09/17/2024 Blood pressure diastolic 80 mm Hg 11/18/2024 Height 71 in 11/18/2024 Blood pressure systolic 130 mm Hg 11/18/2024 Weight 277 lbs 11/18/2024 BMI 38.63 kg/m2 11/18/2024 Procedures Procedure Date Ordered Date Performed Result Body Sit e Physical Therapy- Evaluate and Treat 08/10/2024 N/A Encounters Encounter Location Date Provider Diagnosis [facility] [address] [place] [id number]/10/2024 Nena Ortiz Hypertension, unspecified type I10 [facility] [address] [address] 09/17/2024 Nena Ortiz Encounter for genera l adult medical examination with abnormal findings Z00.01 ; Hypertension, unspecified type I10 ; Left foot pain M79.672 and Other migraine without status migrainosus, not intractable G43.809 [facility] [address] [address] 10/15/2024 Nena Ortiz Left foot pain M79.672 and Left lateral ankle pain M25.572 [facility] [address] [address] 11/18/2024 Nena Ortiz Flank pain R10.9 ; Fatty liver K76.0 and Frequent urination R35.0 [facility] [address] [address] 11/23/2024 [facility] [address] [place] [address]/10/2024 [facility] [address] [place] [address] 08/10/2024 [facility] [address] [place] [address] 11/16/2024 [facility] [address] [place] [address] 11/20/2024 [facility] [address] [place] [address] 11/20/2024 [facility] [address] [place] [address] 11/24/2024 Nena Ortiz Assessments Encounter Date Diagnosis (ICD [...] Left lateral ankle pain (ICD-10 - M25.572) 11/18/2024 Fatty liver (ICD-10 - K76.0) 11/18/2024 Flank pain (ICD-10 - R10.9) No acute abdomen but p aware to call back in sx worsen U/A no infection prliminar but calcium stones debris ? kidney stones 11/18/2024 Frequent urination (ICD-10 - R35.0) 09/17/2024 Left foot pain (ICD-10 - M79.672) [...] Treatment Pending Test Test Name Order Date Ultrasound : Pelvis 11/18/2024 X ray : Abdomen, Kidneys, Ureters, and B ladder (KUB) 11/18/2024 Urine Cytology 09/17/2024 Urine Cytology 11/18/2024 Urine Cytology 10/15/2024 X ray : LS Spine 11/18/2024 Ultrasound : Abdominal 11/18/2024 IRON, TIBC AND FERRITIN PANEL 10/15/2024 IRON, [...] 10/15/2024 Next Appt Details Provider Name:Nena huston, 12/20/2024 10:00:00 AM, [address], [address], [place], [address], Insurance Providers Payer Name Payer Address Payer Phone Subscriber Number Group Number Insured Name Patient Relationship to Insured Coverage Start Date Coverage End Date [facility] [address] [place] [address] [id number] Thuan Nguyen Self - patient is the insured Medical (General) History Medical History History ICD Code Mild intermittent asthma without complic ation J45.20 Other migraine without status migrainosu s, not intractable G43.809 Mood disorder F39
== END 2024-12-08 08:02 | disposition home or self-care (01) ==
LOC: HO.US 08:01
PROVIDERS: PCP Internal Medicine; Visit Provider Internal Medicine
DX: K76.0 Fatty (change of) liver, not elsewhere classified (principal)
CPT/HCPCS: 76700

== ENCOUNTER → 2024-12-08 08:25 | Outpatient (BNV) | payer BC, SELFPAY | PROVIDERS: PCP Internal Medicine; Visit Provider Radiology Diagnostic Radiology | DX: K76.0 Fatty (change of) liver, not elsewhere classified (principal) | CPT/HCPCS: 76700 ==

== ENCOUNTER 2024-12-10 10:57 | Outpatient (AMB) | payer BC, OTHER, SELFPAY ==
[2024-12-10 11:08] VITALS: BP 136/88; PULSE 84; TEMP 36.3; O2SAT 98; BMI 39.8
--- NOTE | 2024-12-10 11:08 | A.OFFPC_ITS ---
Vital Signs 3 12/10/24 11:08 Height 6 ft Weight 293 lb 6 oz BMI 39.8 BP 136/88 Blood Pressure Location Lt brachial Position Sitting Pulse 84 Pulse Source Pulse Oximeter Temp 97.3 F Temp Source Temporal Artery Scan Pulse Oximetry (%) 98 Oxygen Delivery Method Room Air Intake Visit Reasons: finger infection Welfare Visitor Required: No Accompanied by: Self / Same As Patient Allergies No Known Allergies Allergy (Verified 12/10/24 11:12) Tobacco use date assessed: 12/10/24 Dental Screening Dental Screen Date: 12/07/24 HPI HPI Comments 2 History of Present Illness0 Details 34 y/o male patient who presents to the clinic with c/o Left hand 5th finger (Pinky) pain, swelling and infected. He was Prescribed Augmentin for 7 days in Dec 07, and he is currently on day 3 or 4. Pt c/o severe pain with movement, describes the pain as throbbing. Pt believes that Abx not working and infection is getting worse. He has been taking Ibuprofen and Acetaminophen for pain with no relief. Pt asking for something stronger for pain. Denies fevers, chills, nausea or vomiting. [facility] Medical History (Updated 12/10/24 @ 12:42 by Norma Cheng NP) Ankle sprain Vasectomy evaluation Anxiety about health Laceration of left thumb Headache Chronic migraine without aura COVID-19 virus infection Viral infection Ear pain, right Otitis media, right Daytime sleepiness Pharyngitis Otitis media Upper respiratory tract infection SOB (shortness of breath) Left carotid bruit Chest pain Puncture wound of finger of left hand IBS (irritable bowel syndrome) Lumbar disc disease Plantar fasciitis, bilateral Sciatic leg pain Tinnitus PTSD (post-traumatic stress disorder) Generalized anxiety disorder Obesity (BMI 30-39.9) Surgical History H/O vasectomy Family History Mother No problems noted. Father No problems noted. Daughter No problems noted. Son No problems noted. Daughter No problems noted. Brother No problems noted. Sister No problems noted. Sister No problems noted. Other Lupus Mental health disorder Social History Housing: House Alcohol intake: current Comment: 3x a week 2 drinks Patient Tobacco Use Status: Never used Tobacco e-Cigarette/Vaping Use: Never Used Second Hand Smoke Exposure: No service: Yes Current occupational status: employed Cognitive needs: No Hearing needs: No Vision needs: Yes Questionnaire Thrive Questionnaire Date Thrive assessed: 12/07/24 ARTURO-7 AMB Questionnaire ARTURO-7 Date ARTURO - 7 assessed: 12/07/24 Source: Developed by Drs. Harley Maloney, Ros Tadeo, Irwin Recinos and colleagues, with an educational sena from [employer]. Review of Systems Const All systems reviewed & are unremarkable except as noted in HPI and below Physical exam (Primary Care) Vital Signs: Last Vital Signs Temp 97.3 F 12/10/24 11:08 Pulse 84 12/10/24 11:08 BP 136/88 12/10/24 11:08 Pulse Ox 98 12/10/24 11:08 Oxygen Delivery Method Room Air 12/10/24 11:08 BMI result Body Mass Index 39.8 Tobacco/Smoking Status: Tobacco use Status Tobacco use date assessed 12/10/24 12/10/24 11:13 Patient Tobacco Use Status Never used Tobacco 12/10/24 11:13 e-Cigarette/Vaping Use Never Used 12/10/24 11:13 Thrive Assessment: Date of Thrive Assessment Date Thrive assessed 12/07/24 12/10/24 11:13 Const General: cooperative and no acute distress Nutritional Appearance: obese Orientation/consciousness: patient oriented x3 Neuro General: patient oriented x3, gait normal and moves all extremities Extrem Left upper extremity: hand Hand/finger images: 2 1. Soft tissue around the nail bed swelling red and tender to touch Psych Speech and movement: Normal speech and movement present Coding Level of Care Code Est Pt Level 3 (34633) Diagnoses Paronychia of finger of left hand L03.012 Laterality: left Time Spent (min) 15 Assessment & Plan Assessment & Plan (1) Paronychia of finger: Comment: Left fifth finger 11/2024 Code(s): L03.019 - Cellulitis of unspecified finger Category: Medical Qualifiers: Laterality: left Qualified Code(s): L03.012 - Cellulitis of left finger Plan: Continue on Abx prescribed Soak Finger in warm water for 20 minutes on/off Added Topical Abx (Mupirocin 2%) Pt wants to have I&D of the finger. recommended ED visit. Pt decided to go to ED Medications: New 2 mupirocin 2% 1 appl topical BID 15 grams 0RF L03.012 - Cellulitis of left finger
--- OUTSIDE RECORDS SUMMARY | 2024-12-10 12:59 | XMS_ITS | Clinical Summary ---
Author Organization [facility] Address [address] [place] [address] Care Team Providers Care Data Entry Name Role Phone Rosamaria Sam MD Primary Care Provider [phone] Allergies No known active allergies Medications No [...] age to complete this topic Care Teams Data Entry Relationship Specialty Start Date End Date Flaco, Rosamaria Jerome MD [address] [place] [address] [address] [facility] [place] [address] PCP - General Internal Medicine 07/03/24
--- OUTSIDE RECORDS SUMMARY | 2024-12-10 12:59 | XMS_ITS ---
Author Organization [facility] Address [address] [place] [address] Care Team Providers Care Rock Climbing Team Member Name Role Phone Nena Ortiz Primary Care Provider REASON FOR VISIT Refrral Urology Encounters Encounter Location Date Provider Diagnosis [facility] [address] [place] [address] 11/23/2024 Nena Ortiz Plan Of Treatment Next Appt Details Provider Name:Nena huston, 12/20/2024 10:00:00 AM, [address], [place], [address], Progress Notes * Feliciano ALLENsDOB:1990 (34 yo M)Acc No.[id number]:11/23/2024 Patient:?ALLEN Thuan :1990???Age:34 Y???Sex:Male Address:[facility] [place], [address] * * Date:?
--- OUTSIDE RECORDS SUMMARY | 2024-12-10 13:00 | XMS_ITS ---
Author Organization [facility] Address [address] [address] Care Team Providers Care Animal Trainer Supervisor Name Role Phone Nena Ortiz Primary Care Provider Allergies No Known Allergies REASON FOR VISIT [facility] Medications Medication SIG (Take, Route, Frequency, Duration) Notes Start Date End Date Status Doxycycline Hyclate 100 MG 1 capsule Ora lly twice a day for 7 days 11/24/2024 12/01/2024 Active Encounters Encounter Location Date Provider Diagnosis [facility] [address] [facility] [address] [place] [address] 11/24/2024 Nena Ortiz Plan Of Treatment Medication Medication Name Sig Start Date Stop Date Notes Doxycycline Hyclate 100 MG 1 capsule Ora lly twice a day for 7 days 11/24/2024 12/01/2024 Next Appt Details Provider Name:Nena huston, 12/20/2024 10:00:00 AM, [address] [facility] [address], [place], [address], Progress Notes * TIFFANY LaraOB:1990 (34 yo M)Acc No.[id number]:11/24/2024 Patient:?Thuan ALLEN :1990???Age:34 Y???Sex:Male Address:[address] [place] [address] [place], [address] * Refills? Start Doxycycline Hyclate Capsule, 100 MG, Orally, 14 Capsule, 1 capsule, twice a day, 7 days Subjective: * Chief Complaints: * ???[facility] * Medical History:? * Surgical History:? * Hospitalization/Major Diagno stic Procedure:? * Medications:? * Allergies:?N.K.D.A.no[Allerg ies Verified] Objective: * Vitals:? * Physical Examination:? Assessment: Plan: * Treatment: * Procedure Codes:? * true * Date:? Generated for Faizan lundberg/Barbra/Tapan on:?12/10/2024 01:00 PM EST
--- OUTSIDE RECORDS SUMMARY | 2024-12-10 13:00 | XMS_ITS | Data Portability ---
Author Organization ZOHREH Perez s, [address] Address [address] [place] [address] Care Team Providers Care Hydroelectric Operator Name Role Phone [facility] Primary Care Provider Assessment No assessment recorded. Plan of Treatment Reminders Order Date Submit Date Provider Last Modified By Organization Details Last Modified Time Details Appointments None recorded. Lab culture, respiratory 2022 023 [facility], [address] [place] [address], [place], [address], 3 16:06:43 rapid flu (A+B) 2022 023 [place] [address], [address] [place] [address], [id number], 3 16:46:11 rapid SARS CoV 2 Ag, QL IA, respiratory specimen 2022 023 [place] [address] _[facility], [address] [place] [address], [phone], 3 16:46:11 rapid strep group A, throat 2022 023 [place] [address], [address] [place] [address], [address], 3 16:46:10 Referral None recorded. Procedures None recorded. Surgeries None recorded. Imaging None recorded. Medication Orders penicillin V potassium 500 mg tablet 2022 023 [id number], [address] [facility], [place], [address], 16:46:13 Patient TargetsNo targets recorded. Patient Instructions Encounter Date Encounter Id Patient Instructions Last Modified By Organization Details Last Modified Time 11/24/2022 [id number] sore throat: car e instructions [email or web address] Not [...] culture FINAL REPORT Not Available [facility] ([facility]) [address] [facility], [place], [address], 11/27/2022 10:06:50 11/24/19 23 11/27/2022 UPPER RESPI RATOR Y CULTU RE result 1 COMMEN T Routi ne respi rator y annamaria Not Available [facility] ([facility]) [address] [facility], [place], [address], 11/27/2022 10:06:50 11/24/19 23 11/25/2022 PLEAS E NOTE please note Commen t The date and/o r time of colle ction was not indic ated on the requi sitio n as requi red by state and andres al law. The date of recei pt of the speci men was used as the colle ction date if not suppl ied. Not Available [facility] ([facility]) [address] [facility], [place], [address], 11/26/2022 16:06:44 11/24/19 23 11/24/2022 rapid SARS CoV 2 Ag, QL IA, respi rator y speci men Unknown Analyte Normal =Negat vaughn Not Available [address] [place] [address], [place], [address], 11/24/2022 16:14:55 11/24/19 23 11/24/2022 rapid SARS CoV 2 Ag, QL IA, respi rator y speci men Unknown Analyte negati ve Not Available [address] [place] [address], [place], [address], 11/24/2022 16:14:55 11/24/19 23 11/24/2022 rapid flu (A+B) Unknown Analyte Normal = Negati ve Not Available [address] [place] [address], [place], [address], 11/24/2022 16:14:48 11/24/19 23 11/24/2022 rapid flu (A+B) Unknown Analyte negati ve Not Available [address] [place] [address], [place], [address], 11/24/2022 16:14:48 11/24/19 23 11/24/2022 rapid flu (A+B) Unknown Analyte Normal = Negati ve Not Available [address] [place] [address], [place], [address], 11/24/2022 16:14:48 11/24/19 23 11/24/2022 rapid flu (A+B) Unknown Analyte negati ve Not Available [address] [place] [address], [place], [address], 11/24/2022 16:14:48 11/24/19 23 11/24/2022 rapid strep group A, throa t Unknown Analyte Normal = Negati ve Not Available [address] [place] [address], [place], [address], 11/24/2022 16:15:00 11/24/19 23 11/24/2022 rapid strep group A, throa t Unknown Analyte negati ve Not Available [address] [address] [place] [address], [place], [address], 11/24/2022 16:15:00 Result Notes None recorded. Problems Name Problem SNOMED Code Status Onset Date Resolution Date Notes Provider Name and Address Organization Details Recorded Time Gastroesophage al reflux disease 972004893 Active 2022 KENNEY montoya PA - [facility] 3 16:12:05 Migraine 24856293 Active 2022 KENNEY montoya PA - [facility] 3 16:12:17 Chronic back pain 812877263 Active 2022 [facility]oya [facility] - [facility] [...] Details Last Updated DateTime 11/24/2022 37.1 kg/m2 748290.57 g [facility] ANGULO [facility] - [facility] [...] SNOMED-CT Code Diagnosis ICD10 Code Diagnosis Note [id number] 21005[address] [address] [place] [address] 05/01/2022 17:21:49 05/01/2022 17:50:42 [id number] 21004_[address] [address] 05/03/2020 09:55:42 05/03/2020 11:30:41 [id number] [facility]OHREH MONTIEL [facility] [address] [place] [address] 11/24/2022 15:59:16 11/24/2022 16:57:03 Acute upper respiratory infection 96965726 J06.9 Sore throat 463236111 J0 2.9 Known strep exposure. Rapid strep [...] Member ID Guarantor Name 11/24/2022 [facility] [place] [facility] Thuan Nguyen [id number] Thuan Vazquezos Notes Date Note Type Note [...] from paediatricians office as well. ZOHREH GALLOWAY [facility] [place], [address], PA - [facility] 11/24/2022 16:48:47
--- OUTSIDE RECORDS SUMMARY | 2024-12-10 13:00 | XMS_ITS | Encounter Summary ---
Author Name [facility] [place] [facility] [place] [facility] [place] Address [address] [place] [address] Support Name Relationship Address Phone LEIGHTON ALLEN Next of Kin [address] [place] [address] LEIGHTON ALLEN Emergency Contact [address] [place] [address] Care Team Providers Care Administration Intern Name Role Phone CORINNA SEVILLA Primary Care [...] [facility] Aug 17, 2020 [id number] ALLEN,CAR LOS PATIENT [place] ([place]UE CARD) PREFERRED PROVIDER ORGANIZAT ION (PPO) [facility] Aug 17, 2020 [id number] ALLEN,CAR LOS PATIENT [facility] PRESCRIPT ION [facility] Aug 17, 2020 [id number] ALLEN,CAR LOS PATIENT [place] PRES[facility] Aug 17, 2020 [id number] [phone] ALLEN,CAR LOS PATIENT Selected Encounter This section includes the information on record at [place] for the Encounter. Date/Time Encounter Type Encounter Description Reason Provider Source Dec 09, 2024 10:26 AM Outpatient Encounter PRIMARY CARE/MEDICINE YENI BLANCO Encounter Template Text not used by [place] Plan of Treatment: Future Appointments (+ 6 months) and Future Tests (+/- 45 days) The Plan of Treatment section includes future care activities for the patient from all [place] treatmentfacilities. This section includes future appointments and [...] 23, 2024 09:00 AM AMBULATORY - [place]ICINE [place] [facility] [place] [place] [facility] Dec 23, 2024 09:01 AM AMBULATORY - MEDICINE [place] [facility] [place] [facility] Dec 30, 2024 10:30 AM AMBULATORY - NONE [place] [facility] [place] [facility] Jan 20, 2025 08:30 AM AMBULATORY - PSYCHIATRY [facility] April 12, 2025 09:30 AM AMBULATORY - MEDICINE [place] [facility] [place] [facility] Apr 26, 2025 03:00 PM AMBULATORY - NONE [place] [facility] [place] [facility] Active, Pending, and Scheduled Orders This section includes a listing of several types of active, pending, and scheduled orders, including clinic medications orders, diagnostic test orders, procedure orders and consult orders; where the start date of the order is 45 days before the date of the Encounter or 45 days after the date of theEncounter. The data comes from all [place] treatment [facility]. Test Date/Time Test Type Test Details Facility Name Nov 02, 2024 02:06 PM Consult Order COMMUNITY CARE-DENTAL SPECIALTY [facility] Recreation Activities Coordinator's [facility] [place] [facility] Nov 02, 2024 05:07 PM Consult Order HOME SLEEP STUDY NOX/SPOPC OUTPT Cons Recreation Activities Coordinator's Choice [place] Dec 02, 2024 09:37 AM Consult Order COMMUNITY CARE-BH PSYCHOTHERAPY Cons Recreation Activities Coordinator's [facility] [place] [facility] Social History: Smoking Status (Most current) and [...] place. Date/Time Current Smoking Status Comment Facil [facility] Apr 21, 2020 02:14 PM VA-TOBACCO NEVER USED [facility] Encounter Notes: All associated encounter notes This section contains the clinical notes associated to the Encounter. Date/Time Encounter Note(s) Provider Source Dec 09, 2024 05:50 PM PRIMARY CARE SECURE MESSAGING: LOCAL TITLE: PRIMARY CARE SECURE MESSAGING STANDARD TITLE: PRIMARY CARE SECURE MESSAGING DATE OF NOTE: DEC 09, 2024@17:50 ENTRY DATE: DEC 09, 2024@17:50:35 AUTHOR: MIRA LOZA EXP COSIGNER: URGENCY: STATUS: COMPLETED ------Original Message ------ Sent: 12/09/2024 05:50 PM ET From: MIRA LOZA To: DENISSE ALLEN Subject: Medication:Zepbound 2.5 Mg/0.5 Ml Pen Good afternoon Chris Abbott is not formulary in the [place] unfortunately. If you would like to meet with the pharmacist to discuss your option for weight loss please let me know. Respectfully, Mira /CHERELLE Faustin,RN-BC REGISTERED NURSE (RN) Signed: 12/09/2024 17:50 [facility]IRA LO[facility] Dec 09, 2024 11:43 AM ADDENDUM: LOCAL TITLE: Addendum STANDARD TITLE: ADDENDUM DATE OF NOTE: DEC 09, 2024@11:43:22 ENTRY DATE: DEC 09, 2024@11:43:23 AUTHOR: TRENT REDDY EXP COSIGNER: URGENCY: STATUS: COMPLETED Traveler Changer defer to Pact RN and DEPUTY BAILIFF. /aaron PERALTA Signed: 12/09/2024 11:43 Receipt Acknowledged By: 12/10/2024 09:21 /mercedes/ PADILLA CUELLAR LPN LPN 12/09/2024 17:51 /mercedes/ CHERELLE RANDHAWA,RN-BC REGISTERED NURSE (RN) === --- Original Document --- 12/09/24 PRIMARY CARE SECURE MESSAGING: ------Original Message ------ Sent: 12/08/2024 09:07 AM ET From: DENISSE ALLEN To: Saul DAMIAN_PRIMARY CARE_[facility] Subject: Medication:Zepbound 2.5 Mg/0.5 Ml Pen Good morning. I am writing to inquire about the possibility of obtaining a prescription for Zepbound to assist with weight loss. My primary care physician, Dr. Sam of [facility], prescribed it, but unfortunately, my insurance does not cover it. He provided instructions for its use. Could the [place] prescribe and cover this medication for my weight loss? I am severely overweight at 287 lbs. Please forgive me if this is not the appropriate contact; I no longer see Dr. Ewing listed as a provider. ------Original Message ------ Sent: 12/09/2024 10:26 AM ET From: YENI BLANCO To: DENISSE ALLEN Subject: Medication:Zepbound 2.5 Mg/0.5 Ml Pen Good morning I will forward your request to your provider. Respectfully, Yeni Blanco RN /mercedes/ EYNI BLANCO REGISTERED NURSE Signed: 12/09/2024 10:26 TRENT REDDY [place] [facility] [place] [facility] Dec 09, 2024 11:41 AM PRIMARY CARE SECURE MESSAGING: LOCAL TITLE: PRIMARY CARE SECURE MESSAGING STANDARD TITLE: PRIMARY CARE SECURE MESSAGING DATE OF NOTE: DEC 09, 2024@11:41 ENTRY DATE: DEC 09, 2024@11:41:26 AUTHOR: TRENT REDDY EXP COSIGNER: URGENCY: STATUS: COMPLETED ------Original Message ------ Sent: 12/09/2024 10:32 AM ET From: DENISSE ALLEN To: Vijay SEVILLA_PRIMARY CARE_[facility] Subject: Medication:Zepbound 2.5 Mg/0.5 Ml Pen Thank you. Please also note that I have unsuccessfully attempted the move program twice. /es/ TRENT REDDY AMSA Signed: 12/09/2024 11:41 Receipt Acknowledged By: 12/10/2024 09:21 /es/ PADILLA CUELLAR LPN LPN 12/09/2024 17:46 /es/ GRAHAM RANDHAWAN,RN-BC REGISTERED NURSE (RN) TRENT REDDY [place] [facility] [place] [facility] Dec 09, 2024 10:26 AM PRIMARY CARE SECURE MESSAGING: LOCAL TITLE: PRIMARY CARE SECURE MESSAGING STANDARD TITLE: PRIMARY CARE SECURE MESSAGING DATE OF NOTE: DEC 09, 2024@10:26 ENTRY DATE: DEC 09, 2024@10:26:49 AUTHOR: YENI BLANCO EXP COSIGNER: URGENCY: STATUS: COMPLETED PRIMARY CARE SECURE MESSAGING Has ADDENDA ------Original Message ------ Sent: 12/08/2024 09:07 AM ET From: DENISSE ALLEN To: Honey [facility] Subject: Medication:Zepbound 2.5 Mg/0.5 Ml Pen Good morning. I am writing to inquire about the possibility of obtaining a prescription for Zepbound to assist with weight loss. My primary care physician, Dr. Sam of [facility], prescribed it, but unfortunately, my insurance does not cover it. He provided instructions for its use. Could the [place] prescribe and cover this medication for my weight loss? I am severely overweight at 287 lbs. Please forgive me if this is not the appropriate contact; I no longer see Dr. Ewing listed as a provider. ------Original Message ------ Sent: 12/09/2024 10:26 AM ET From: YENI BLANCO To: DENISSE ALLEN Subject: Medication:Zepbound 2.5 Mg/0.5 Ml Pen Good morning I will forward your request to your provider. Respectfully, Yeni Blanco RN /mercedes/ YENI BLANCO REGISTERED NURSE Signed: 12/09/2024 10:26 12/09/2024 ADDENDUM STATUS: COMPLETED Traveler Changer defer to Pact RN and DEPUTY BAILIFF. /mercedes/ TRENT PERALTA Signed: 12/09/2024 11:43 Receipt Acknowledged By: * AWAITING SIGNATURE * PADILLA CUELLAR * AWAITING SIGNATURE * MIRA LOZA [facility]
--- OUTSIDE RECORDS SUMMARY | 2024-12-10 13:00 | XMS_ITS | Continuity of Care Document ---
Author Name [facility] Organization [facility] Care Team Providers Care [employer] [employer] Name Role Phone [facility] Unavailable Unavailable Problems [...] [facility] Chronic Post-Traumatic Stress Disorder ([facility] [id number]) Active Condition Oct 13, 2023 Entered By: MIGUELITO GABRIEL Comment: reviewed [facility] Comanagement Active Condition Dec 01, 2022 Entered By: RUTHIE ESTEBAN Comment: Belén Knight [facility] Exposure to potentially hazardous substance Active Condition Dec 15, 2022 Entered By: JANEY RODRIGEZ Comment: [place] ([facility]) History of [facility] Active Condition [facility] Major depressive disorder Active Condition Jan 25, 2021 Entered By: MIGUELITO GABRIEL Comment: reviewedAug 20, 2021 Entered By: MIGUELITO GABRIEL Comment: reviewedOct 13, 2023 Entered By: MIGUELITO GABRIEL Comment: reviewed [facility] Migraine Active Condition Jul 25 Entered By: RUTHIE ESTEBAN Comment: followed by Dr. Vo [facility] Sleep apnea Active Condition Sep 09, 2022 Entered By: RUTHIE ESTEBAN Comment: unable to tolerate PAP therapy [facility] Affective disorder Inactive Condition 10/13/2023 [facility] Chronic post-traumatic stress disorder Inactive Condition 08/20/2021 [facility] LD contact dermatitis Active Condition DoD patient function at time of event - activity Active Condition [facility] location of accident - training facility Inactive [...] exam for hearing conservation, treatment Inactive Condition [facility] Diagnosis: ICD-10-CM F43.12 Post-traumatic stress disorder, chronic Active Diagnosis [facility] Diagnosis: ICD-10-CM G47.33 Obstructive sleep apnea (adult) (pediatric) Active Diagnosis [facility] Diagnosis: ICD-10-CM K03.6 Deposits [accretions] on teeth Active Diagnosis [facility] Diagnosis: ICD-10-CM M54.59 Other low back pain Active Diagnosis [facility] Diagnosis: ICD-10-CM G47.30 Sleep apnea, unspecified Active Diagnosis [facility] Medications Combined list of outpatient medications from Department of Defense and [facility] Affairs facilities.Medications provided include 1) outpatient medications from the last 15 months, and 2) patient-reported medications. Medication Details Route Status Patient Instructions Prescription Expires Prescription Number Last Dispense Date Ordering Provider Order Date Order Qty Source AMITRIPTYLI NE HCL 10MG TAB TAKE ONE TABLET BY MOUTH AT BEDTIME ORAL ACTIVE Guy GABRIEL 2023 [facility] AMOXICILLIN 500 MG ORAL CAP TAKE ONE CAPSULE BY MOUTH TWICE DAILY 10/17/2023 [id number] GLORIA ESTEBAN O C 2022 20 [facility] AMOXICILLIN TRIHYDRATE 500MG CAP TAKE ONE CAPSULE BY MOUTH TWICE DAILY ORAL 10/17/2023 [id number] GLORIA ESTEBAN O 2022 20 [place] sertraline (U/D) 25 MG ORAL TAB TAKE ONE TABLET BY MOUTH ONCE DAILY FOR MOOD 10/13/2024 [id number] MIGUELITO GABRIEL 2023 60 [facility] SERTRALINE HCL 25MG TAB TAKE ONE TABLET BY MOUTH ONCE DAILY FOR POSTTRAU MATIC STRESS SYNDROME ORAL SUSPEND ED 08/06/2025 [id number] Guy GABRIEL 2023 60 [facility] SERTRALINE HCL 25MG TAB TAKE ONE TABLET BY MOUTH ONCE DAILY FOR MOOD ORAL DISCONT INUED 10/13/2024 [id number] 4 Guy GABRIEL 2022 60 [facility] SODIUM FLUORIDE 1.1% TOOTHPASTE BRUSH SMALL AMOUNT TO TEETH TWICE DAILY FOR TOOTH DECAY PREVENTI ON DENTAL ACTIVE 10/12/2025 [id number] 4 Geraldine KEYES 2023 51 [facility] UBROGEPANT TAB TAKE BY MOUTH ONE TIME ORAL ACTIVE Guy GABRIEL 2023 [facility] Allergies, Adverse Reactions, Alerts Combined list of allergies from Department of Defense and Veterans Affairs facilities. It does not include entries that were removed or entered in error. Substance Category Reaction Severity Reaction type Status Date Reported Comments Source No Known Allergies Drug allergy (disorder) active 08/24/2013 Fabio Nunez [place] Immunizations Combined list of available immunizations from the Department of Defense and Veterans Affairs facilities. Immunization Series Date Given Administered By Site Reaction Lot Number CVX Code Drug Film Waxer Status Comments Source influenza, injectable, quadrivalent, contains preservative 1 2018 [id number] Seqirus (SEQ) complet ed influenza , injectabl e, quadrival ent, contains preservat vaughn DoD anthrax vaccine 1 2018 [id number] [employer] [place] (MIP) complet ed anthrax vaccine DoD typhoid Vi capsular polysaccharid e vaccine 1 2018 [id number] Sanofi Pasteur (PMC) complet ed typhoid Vi capsular polysacch aride vaccine DoD Influenza, seasonal, injectable, preservative free 1 2017 [id number] Se[employer]irus (SEQ) comple t ed Influenza , seasonal, injectabl e, preservat vaughn free DoD Influenza, injectable, quadrivalent, preservative free 1 2017 UNK 150 Unknown (UNK) comple t ed Influenza , injectabl e, quadrival ent, preservat vaughn free DoD Influenza, seasonal, injectable, preservative free 1 2016 [id number] 140 Unknown (UNK) comple t ed Influenza , seasonal, injectabl e, preservat vaughn free DoD Influenza, seasonal, injectable, preservative free 1 2015 [id number] 140 Other (OTH) complet ed Influenza , seasonal, injectabl e, preservat vaughn free DoD Influenza, seasonal, injectable, preservative free 1 2014 [id number] 140 Other (OTH) complet ed Influenza , seasonal, injectabl e, preservat vaughn free DoD hepatitis B vaccine, adult dosage 3 2013 [id number] 43 Other (OTH) complet ed hepatitis B vaccine, adult dosage DoD hepatitis A vaccine, adult dosage 3 2013 [id number] 52 Other (OTH) complet ed hepatitis A vaccine, adult dosage DoD Influenza, seasonal, injectable, preservative free 1 2013 [id number] 140 Smithine (SKB) complet ed Influenza , seasonal, injectabl e, preservat vaughn free DoD hepatitis A and hepatitis B vaccine 2 2012 [id number] [facility] (SKB) complet ed hepatitis A and hepatitis B vaccine DoD measles, mumps and rubella virus vaccine 1 2012 UNK 03 Unknown (UNK) Not Given measles, mumps and rubella virus vaccine DoD varicella virus vaccine 1 2012 UNK 21 Unknown (UNK) Not Given varicella virus vaccine DoD hepatitis A and hepatitis B vaccine 1 2012 [id number] 104 [facility] (SK) complet ed hepatitis A and hepatitis B vaccine DoD Adenovirus, type 4 and type 7, live, oral 1 2012 [id number] 143 iWelcome ([facility]) complet ed Adenoviru s, type 4 and type 7, live, oral DoD influenza, live, intranasal, quadrivalent 1 2012 [id number] 149 [employer] (CSL) complet ed influenza , live, intranasa l, quadrival ent DoD poliovirus vaccine, inactivated 1 2012 [id number] 10 Sanofi Pasteur (PMC) complet ed polioviru s vaccine, inactivat ed DoD meningococcal polysaccharid e (groups A, C, Y and W-135) diphtheria toxoid conjugate vaccine (MCV4P) 1 2012 [id number] 114 Smithine (SKB) complet ed meningoco ccal polysacch aride (groups A, C, Y and W-135) diphtheri a toxoid conjugate vaccine (MCV4P) DoD tetanus toxoid, reduced diphtheria toxoid, and acellular pertu is vaccine, adsorbed 1 2012 [id number] 115 Sanofi Pasteur (PMC) complet ed tetanus [...] AM Reporting Lab: [facility] [place] [facility] [address] [facility] [address] Performing Lab: [facility] [place] [facility] [address] [facility] [address] [facility] [place] [facility] LIPID PANEL FASTING CHOLESTEROL [MASS/VOLUM E] IN SERUM OR PLASMA 168 mg/dL 09/17 Specimen Type: SERUM No comment entered. Ordering Provider: JOSHUA ESTEBAN Report Released Date/Time: March 19, 2023 04:54 PM Reporting Lab: [facility] [place] [address] [address] Performing Lab: [facility] [place] [address] [address] [facility] LIPID PANEL FASTING TRIGLYCERID E [MASS/VOLUM E] IN SERUM OR PLASMA 185 mg/dL 0 - 150 09/17 H Specimen Type: SERUM No comment entered. Ordering Provider: JOSHUA ESTEBAN Report Released Date/Time: March 19, 2023 04:54 PM Reporting Lab: [facility] [place] [address] [address] Performing Lab: [facility] [place] [address] [address] [facility] LIPID PANEL FASTING CHOLESTEROL IN LDL [MASS/VOLUM E] IN SERUM OR PLASMA BY CALCULATION 91 mg/dL 0 - 129 09/17 Specimen Type: SERUM No comment entered. Ordering Provider: JOSHUA ESTEBAN Report Released Date/Time: March 19, 2023 04:54 PM Reporting Lab: [facility] [place] [place] [facility] [address] [facility] [address] Performing Lab: [facility] [place] [place] [address] [address] [facility] [place] [facility] LIPID PANEL FASTING CHOLESTEROL .TOTAL/CHOL ESTEROL IN HDL [MASS RATIO] IN SERUM OR PLASMA 4.2 09/17 Specimen Type: SERUM No comment entered. Ordering Provider: JOSHUA ESTEBAN Report Released Date/Time: March 19, 2023 04:54 PM Reporting Lab: [facility] [place] [facility] [address] [facility] [address] Performing Lab: [facility]USE[facility] [address] [facility] [address] [facility]RMOUNT[facility]ITALTRN [facility]USE [facility] LIPID PANEL FASTING CHOLESTEROL IN HDL [MASS/VOLUM E] IN SERUM OR PLASMA 40 mg/dL 40 - 60 09/17 Specimen Type: SERUM No comment entered. Ordering Provider: JOSHUA ESTEBAN Report Released Date/Time: March 19, 2023 04:54 PM Reporting Lab: [facility]ITALRMOUNTAIN VIEW HOSPITALTRN [facility]ITALUSE[address] [address] Performing Lab: [facility]ITALRL TRN [facility]ITALUSE[address] [address] [facility]ITALRNOR[facility] ALAB[facility] HOSPITALN [facility]USE [facility] BASIC METABOLIC PANEL (fasting) UREA NITROGEN [MASS/VOLUM E] IN SERUM OR PLASMA 13 mg/dL 7 - 25 09/17 Specimen Type: SERUM No comment entered. Ordering Provider: JOSHUA ESTEBAN Report Released Date/Time: March 19, 2023 04:54 PM Reporting Lab: [facility]PITALRMOUNTAIN VIEW HOSPITALTRN [facility]ITALUSE[address] [address] Performing Lab: [facility]ITALRL [facility]ITALUSE[address] [address] [facility]ITALRL TRN [facility]OSPITALUSE [facility] BASIC METABOLIC PANEL (fasting) GLUCOSE [MASS/VOLUM E] IN SERUM OR PLASMA 92 mg/dL 65 - 100 09/17 Specimen Type: SERUM No comment entered. Ordering Provider: JOSHUA ESTEBAN Report Released Date/Time: March 19, 2023 04:54 PM Reporting Lab: [facility]ITALUSE[address] [address] Performing Lab: [facility]RL [facility]ITALUSE[address] [address] [facility] [place] [facility] BASIC METABOLIC PANEL (fasting) SODIUM [MOLES/VOLU ME] IN SERUM OR PLASMA 139 mmol/L 135 - 145 09/17 Specimen Type: SERUM No comment entered. Ordering Provider: JOSHUA ESTEBAN Report Released Date/Time: March 19, 2023 04:54 PM Reporting Lab: [facility] [place] [facility] [address] [facility] [address] Performing Lab: [facility] [place] [facility] [address] [facility] [address] [facility]R [facility] BASIC METABOLIC PANEL (fasting) POTASSIUM [MOLES/VOLU ME] IN SERUM OR PLASMA 4.2 mmol/L 3.5 - 5.0 09/17 Specimen Type: SERUM No comment entered. Ordering Provider: JOSHUA ESTEBAN Report Released Date/Time: March 19, 2023 04:54 PM Reporting Lab: [facility] [place] [facility] [address] [facility] [address] Performing Lab: [place] [facility] [place] [address] [address] [facility]ITALRMOUNTAIN VIEW HOSPITALTRN [facility]OSPITALUSE [facility] BASIC METABOLIC PANEL (fasting) CHLORIDE [MOLES/VOLU ME] IN SERUM OR PLASMA 105 mmol/L 100 - 110 09/17 Specimen Type: SERUM No comment entered. Ordering Provider: JOSHUA ESTEBAN Report Released Date/Time: March 19, 2023 04:54 PM Reporting Lab: [facility] [place] [facility] [address] [facility] [address] Performing Lab: [place] [facility] [place] [address] [address] [facility]ITALRL [facility] [place] [facility] BASIC METABOLIC PANEL (fasting) CARBON DIOXIDE, TOTAL [MOLES/VOLU ME] IN SERUM OR PLASMA 26 meq/L 20 - 30 09/17 Specimen Type: SERUM No comment entered. Ordering Provider: JOSHUA ESTEBAN Report Released Date/Time: March 19, 2023 04:54 PM Reporting Lab: [facility] [place] [facility] [address] [facility] [address] Performing Lab: [facility] [place] [facility] [address] [facility] [address] [facility] [place] [facility] BASIC METABOLIC PANEL (fasting) CREATININE [MASS/VOLUM E] IN SERUM OR PLASMA 1.11 mg/dL 0.50 - 1.40 09/17 Specimen Type: SERUM No comment entered. Ordering Provider: JOSHUA ESTEBAN Report Released Date/Time: March 19, 2023 04:54 PM Reporting Lab: [facility] [place] [place] [facility] [address] [facility] [address] Performing Lab: [facility] [place] [facility] [address] [facility] [address] [facility]RL [facility] [place] [facility] BASIC METABOLIC PANEL (fasting) GLOMERULAR FILTRATION RATE/1.73 SQ M.PREDICTED [VOLUME RATE/AREA] IN SERUM, PLASMA OR BLOOD BY CREATININE- BASED FORMULA (CKD-EPI 2020) 90 mL/min 60 09/17 Specimen Type: SERUM No comment entered. Ordering Provider: JOSHUA ESTEBAN Report Released Date/Time: March 19, 2023 04:54 PM Reporting Lab: [facility]RL [place] [address] [address] Performing Lab: [place] [facility]PITALUSETS [address] [address] [facility]PITALRL TRN [facility]OSPITALUSE [facility] LIVER FUNCTION PROTEIN [MASS/VOLUM E] IN SERUM OR PLASMA 7.5 g/dL 6.0 - 8.3 09/17 Specimen Type: SERUM No comment entered. Ordering Provider: JOSHUA ESTEBAN Report Released Date/Time: March 19, 2023 04:54 PM Reporting Lab: [facility] [place] [facility] [address] [facility] [address] Performing Lab: [place] [facility]OSPITALUSETS [address] [address] [facility]ITALRL W[facility]N [facility]OSPITALUSE [facility] LIVER FUNCTION ALBUMIN [MASS/VOLUM E] IN SERUM OR PLASMA 4.3 g/dL 3.5 - 5.0 09/17 Specimen Type: SERUM No comment entered. Ordering Provider: JOSHUA ESTEBAN Report Released Date/Time: March 19, 2023 04:54 PM Reporting Lab: [facility] [place] [facility] [address] [facility] [address] Performing Lab: [facility] [place] [facility] [address] [facility] [address] [facility] [place] [facility] LIVER FUNCTION ALKALINE PHOSPHATASE [ENZYMATIC ACTIVITY/VO LUME] IN SERUM OR PLASMA 49 U/L 40 - 150 09/17 Specimen Type: SERUM No comment entered. Ordering Provider: JOSHUA ESTEBAN Report Released Date/Time: March 19, 2023 04:54 PM Reporting Lab: [facility] [place] [facility] [address] [facility] [address] Performing Lab: [place] [facility] [place] [address] [address] [facility] [place] [facility] LIVER FUNCTION ASPARTATE AMINOTRANSF ERASE [ENZYMATIC ACTIVITY/VO LUME] IN SERUM OR PLASMA 19 U/L 5 - 34 09/17 Specimen Type: SERUM No comment entered. Ordering Provider: JOSHUA ESTEBAN Report Released Date/Time: March 19, 2023 04:54 PM Reporting Lab: [facility] [place] [address] [address] Performing Lab: [facility] [place] [facility] [address] [facility] [address] [facility] [place] [facility] LIVER FUNCTION ALANINE AMINOTRANSF ERASE [ENZYMATIC ACTIVITY/VO LUME] IN SERUM OR PLASMA 30 U/L 09/17 Specimen Type: SERUM No comment entered. Ordering Provider: JOSHUA ESTEBAN Report Released Date/Time: March 19, 2023 04:54 PM Reporting Lab: [facility] [place] [facility] [address] [facility] [address] Performing Lab: [facility] [place] [facility] [address] [facility] [address] [facility] [place] [facility] LIVER FUNCTION BILIRUBIN.T OTAL [MASS/VOLUM E] IN SERUM OR PLASMA 0.8 mg/dL 0.2 - 1.2 09/17 Specimen Type: SERUM No comment entered. Ordering Provider: JOSHUA ESTEBAN Report Released Date/Time: March 19, 2023 04:54 PM Reporting Lab: [facility]ITALRNOR[facility] AL[facility] HOSPITALN [facility] [address] [facility] [address] Performing Lab: [facility]ITALRL TRN [facility]ITALUSEW[facility]SW[facility] [address] [facility] [address] [facility]RL [facility]N [facility]USE [facility] TSH THYROTROPIN [UNITS/VOLU ME] IN SERUM OR PLASMA 2.26 u[IU]/ mL 0.35 - 5.00 09/17 Specimen Type: SERUM No comment entered. Ordering Provider: JOSHUA ESTEBAN Report Released Date/Time: March 19, 2023 04:54 PM Reporting Lab: [facility] [address] [address] Performing Lab: [facility]ITALRL [address] [address] [facility] HEMOGLOBI N A1C PANEL HEMOGLOBIN A1C/HEMOGLO [...] March 19, 2023 04:54 PM Reporting Lab: [facility]ITALRNOR[facility] HOSPITALN [address] [address] Performing Lab: [facility]ITALRL [facility]OSPITALN [facility]ITALUSE[address] [address] [facility] CBC AND DIFF (AUTO) LEUKOCYTES [#/VOLUME] IN BLOOD BY AUTOMATED COUNT 11.72 10*3/u L 4.50 - 11.00 09/17 H Specimen Type: BLOOD No comment entered. Ordering Provider: JOSHUA ESTEBAN Report Released Date/Time: March 19, 2023 04:54 PM Reporting Lab: [facility] [place] [facility] [address] [facility] [address] Performing Lab: [place] [facility] [place] [facility] [address] [facility] [address] [facility] [place] [facility] CBC AND DIFF (AUTO) ERYTHROCYTE S [#/VOLUME] IN BLOOD BY AUTOMATED COUNT 5.54 10*6/u L 4.23 - 5.66 09/17 Specimen Type: BLOOD No comment entered. Ordering Provider: JOSHUA ESTEBAN Report Released Date/Time: March 19, 2023 04:54 PM Reporting Lab: [place] [facility] [place] [address] [address] Performing Lab: [place] [facility] [place] [facility] [address] [facility] [address] [facility] CBC AND DIFF (AUTO) HEMOGLOBIN [MASS/VOLUM E] IN BLOOD 14.9 g/dL 12.8 - 17 09/17 Specimen Type: BLOOD No comment entered. Ordering Provider: JOSHUA ESTEBAN Report Released Date/Time: March 19, 2023 04:54 PM Reporting Lab: [facility] [place] [address] [address] Performing Lab: [place] [facility] [place] [address] [address] [facility]RL [facility] [place] [facility] CBC AND DIFF (AUTO) HEMATOCRIT [VOLUME FRACTION] OF BLOOD BY AUTOMATED COUNT 45.1 39.2 - 50.4 09/17 Specimen Type: BLOOD No comment entered. Ordering Provider: JOSHUA ESTEBAN Report Released Date/Time: March 19, 2023 04:54 PM Reporting Lab: [facility] [place] [address] [address] Performing Lab: [place] [facility] [place] [address] [address] [facility] [place] [facility] CBC AND DIFF (AUTO) MCV [ENTITIC VOLUME] BY AUTOMATED COUNT 81.4 fL 82 - 99 09/17 L Specimen Type: BLOOD No comment entered. Ordering Provider: JOSHUA ESTEBAN Report Released Date/Time: March 19, 2023 04:54 PM Reporting Lab: [facility] [place] [facility] [address] [facility] [address] Performing Lab: [facility] [place] [facility] [address] [facility] [address] [facility] CBC AND DIFF (AUTO) MCHC [MASS/VOLUM E] BY AUTOMATED COUNT 33.0 g/dL 30.8 - 35.1 09/17 Specimen Type: BLOOD No comment entered. Ordering Provider: JOSHUA ESTEBAN Report Released Date/Time: March 19, 2023 04:54 PM Reporting Lab: [facility] [place] [facility] [address] [facility] [address] Performing Lab: [facility] [place] [facility] [address] [facility] [address] [facility] [place] CBC AND DIFF (AUTO) PLATELETS [#/VOLUME] IN BLOOD BY AUTOMATED COUNT 294 10*3/u L 140 - 360 09/17 Specimen Type: BLOOD No comment entered. Ordering Provider: JOSHUA ESTEBAN Report Released Date/Time: March 19, 2023 04:54 PM Reporting Lab: [facility] [place] [facility] [address] [facility] [address] Performing Lab: [facility] [place] [facility] [address] [facility] [address] [facility] [place] [facility] CBC AND DIFF (AUTO) ERYTHROCYTE DISTRIBUTIO N WIDTH [RATIO] BY AUTOMATED COUNT 13.9 12.0 - 16.0 09/17 Specimen Type: BLOOD No comment entered. Ordering Provider: JOSHUA ESTEBAN Report Released Date/Time: March 19, 2023 04:54 PM Reporting Lab: [facility] [place] [facility] [address] [facility] [address] Performing Lab: [place] [facility] [place] [facility] [address] [facility] [address] [facility] [place] [facility] CBC AND DIFF (AUTO) MONOCYTES [#/VOLUME] IN BLOOD BY AUTOMATED COUNT 0.96 10*3/u L 0.30 - 1.10 09/17 Specimen Type: BLOOD No comment entered. Ordering Provider: JOSHUA ESTEBAN Report Released Date/Time: March 19, 2023 04:54 PM Reporting Lab: [facility] [place] [facility] [address] [facility] [address] Performing Lab: [place] [facility] [place] [facility] [address] [facility] [address] [facility] [place] [facility] CBC AND DIFF (AUTO) MCH [ENTITIC MASS] BY AUTOMATED COUNT 26.9 pg 26.2 - 32.6 09/17 Specimen Type: BLOOD No comment entered. Ordering Provider: JOSHUA ESTEBAN Report Released Date/Time: March 19, 2023 04:54 PM Reporting Lab: [facility] [facility] [address] [facility] [address] Performing Lab: [place] [facility] [place] [facility] [address] [facility] [address] [facility] [place] [facility] CBC AND DIFF (AUTO) NEUTROPHILS /100 LEUKOCYTES IN BLOOD BY AUTOMATED COUNT 76.1 43.7 - 75.8 09/17 H Specimen Type: BLOOD No comment entered. Ordering Provider: JOSHUA ESTEBAN Report Released Date/Time: March 19, 2023 04:54 PM Reporting Lab: [facility] [place] [facility] [address] [facility] [address] Performing Lab: [place] [facility] [place] [address] [address] [facility] [place] [facility] [facility] CBC AND DIFF (AUTO) LYMPHOCYTES /100 LEUKOCYTES IN BLOOD BY AUTOMATED COUNT 13.8 14.0 - 42.3 09/17 L Specimen Type: BLOOD No comment entered. Ordering Provider: JOSHUA ESTEBAN Report Released Date/Time: March 19, 2023 04:54 PM Reporting Lab: [facility] [address] [facility] [address] Performing Lab: [facility] [address] [facility] [address] [facility] CBC AND DIFF (AUTO) MONOCYTES/1 00 LEUKOCYTES IN BLOOD BY AUTOMATED COUNT 8.2 5.1 - 13.7 09/17 Specimen Type: BLOOD No comment entered. Ordering Provider: JOSHUA ESTEBAN Report Released Date/Time: March 19, 2023 04:54 PM Reporting Lab: [facility] [address] [facility] [address] Performing Lab: [facility] [address] [facility] [address] [facility] CBC AND DIFF (AUTO) EOSINOPHILS /100 LEUKOCYTES IN BLOOD BY AUTOMATED COUNT 1.1 0.4 - 6.8 09/17 Specimen Type: BLOOD No comment entered. Ordering Provider: JOSHUA ESTEBAN Report Released Date/Time: March 19, 2023 04:54 PM Reporting Lab: [facility] [address] [facility] [address] Performing Lab: [facility] [address] [facility] [address] [facility] CBC AND DIFF (AUTO) BASOPHILS/1 00 LEUKOCYTES IN BLOOD BY AUTOMATED COUNT 0.5 0.1 - 2.0 09/17 Specimen Type: BLOOD No comment entered. Ordering Provider: JOSHUA ESTEBAN Report Released Date/Time: March 19, 2023 04:54 PM Reporting Lab: [facility] [address] [facility] [address] Performing Lab: [facility] [address] [place] [address] [facility] CBC AND DIFF (AUTO) NEUTROPHILS [#/VOLUME] IN BLOOD BY AUTOMATED COUNT 8.91 10*3/u L 2.20 - 7.60 09/17 H Specimen Type: BLOOD No comment entered. Ordering Provider: JOSHUA ESTEBAN Report Released Date/Time: March 19, 2023 04:54 PM Reporting Lab: [facility] [address] [address] Performing Lab: [facility] [address] [address] [facility] CBC AND DIFF (AUTO) LYMPHOCYTES [#/VOLUME] IN BLOOD BY AUTOMATED COUNT 1.62 10*3/u L 1.00 - 3.20 09/17 Specimen Type: BLOOD No comment entered. Ordering Provider: JOSHUA ESTEBAN Report Released Date/Time: March 19, 2023 04:54 PM Reporting Lab: [facility] [address] [address] Performing Lab: [facility] [address] [address] [facility] CBC AND DIFF (AUTO) EOSINOPHILS [#/VOLUME] IN BLOOD BY AUTOMATED COUNT 0.13 10*3/u L 0.03 - 0.44 09/17 Specimen Type: BLOOD No comment entered. Ordering Provider: JOSHUA ESTEBAN Report Released Date/Time: March 19, 2023 04:54 PM Reporting Lab: [facility] [address] [address] Performing Lab: [facility] [address] [address] [facility] CBC AND DIFF (AUTO) BASOPHILS [#/VOLUME] IN BLOOD BY AUTOMATED COUNT 0.06 10*3/u L 0.01 - 0.13 09/17 Specimen Type: BLOOD No comment entered. Ordering Provider: JOSHUA ESTEBAN Report Released Date/Time: March 19, 2023 04:54 PM Reporting Lab: [facility] [address] [address] Performing Lab: [facility] [address] [facility] [address] [facility] CBC AND DIFF (AUTO) IMMATURE GRANULOCYTE S/100 LEUKOCYTES IN BLOOD BY AUTOMATED COUNT 0.3 0.0 - 0.7 09/17 Specimen Type: BLOOD No comment entered. Ordering Provider: JOSHUA ESTEBAN Report Released Date/Time: March 19, 2023 04:54 PM Reporting Lab: [facility] [address] [facility] [address] Performing Lab: [facility] [address] [facility] [address] [facility] CBC AND DIFF (AUTO) IMMATURE GRANULOCYTE S [#/VOLUME] IN BLOOD 0.04 10*3/u L 0.00 - 0.06 09/17 Specimen Type: BLOOD No comment entered. Ordering Provider: JOSHUA ESTEBAN Report Released Date/Time: March 19, 2023 04:54 PM Reporting Lab: [facility] [address] [facility] [address] Performing Lab: [address] [address] [facility] Encounters Combined list of: 1) Encounters from Department of Veterans Affairs facilities going back up to thelast 18 months. 2) Encounters from the Department of Defense facilities going back up to 280 months. Location Location Details Encounter Type Encounter Number Reason For Visit Attending Provider ADM Date DC Date Status Disposition Source [place]) OUTPATIENT [id number] Notes Entered by: CHERIE GONZALES 28 Jul 2013 1407 ------- ------- ------- ------- -- Hearing test CHERIE GONZALES 07/28 Released w/o Limitations [place] ) [place] OUTPATIENT [id number] SHUBHAM MAK 07/29 Released w/o Limitations [place] [facility] [id number] Notes Entered by: Christina MCKEON 30 Jul 2013 1007 ------- ------- ------- ------- -- IMM TATIANNA REEVESMARPerez Meier 07/30 [place]/o Limitations [place] OUTPATIENT [id number] Notes Entered by: MADELINE MEDELLIN 24 Aug 2013 0701 ------- ------- ------- ------- -- ORTHO- HAND MILLY DIAZ 08/24 Released with Work/Duty Limitations [place]) [place] [facility] OUTPATIENT [id number] Notes Entered by: RODRIGUE NOBLES 13 Sep 2013 0826 ------- ------- ------- ------- -- IMM-ZAKIA SNYDER 09/13 Released w/o Limitations [place] [facility]) [place] [facility] OUTPATIENT [id number] Notes Entered by: RODRIGUE NOBLES 01 Oct 2013 0702 ------- ------- ------- ------- -- DERM ZAKIA Bella 10/01 Released w/o Limitations [place]) [place]([facility] Bldg [address]) OUTPATIENT [id number] Notes Entered by: AMANDA HUGHES 30 Dec 2018 0843 ------- ------- ------- ------- -- ALEC RENDON 12/30 Released w/o Limitations Raudel Linares [place]([facility] B[address] [address]) Theater Facility OUTPATIENT [id number] Theater Provider 05/08 Released w/o Limitations [facility] OUTPATIENT [id number] Theater Provider 05/09 Released w/o Limitations [facility] OUTPATIENT [id number] 2 Theater Provider 05/12 Released w/o Limitations [facility] OUTPATIENT [id number] Theater Provider 05/23 Released w/o Limitations [facility] OUTPATIENT [id number] Theater Provider 05/24 Released w/o Limitations [facility] OUTPATIENT [id number] Theater Provider 06/28 Released w/o Limitations [facility] OUTPATIENT [id number] Theater Provider 07/03 Released with Work/Duty Limitations [facility] OUTPATIENT [id number] Theater Provider 07/08 Released w/o Limitations [facility] OUTPATIENT [id number] 2 Theater Provider 07/09 Released w/o Limitations [facility] OUTPATIENT [id number] Theater Provider 07/29 Released w/o Limitations [facility] OUTPATIENT [id number] 7 Theater Provider 08/07 Released w/o Limitations [facility] OUTPATIENT [id number] 3 Theater Provider 08/15 Released w/o Limitations [facility] OUTPATIENT [id number] 3 Theater Provider 08/28 Released w/o Limitations [facility] OUTPATIENT [id number] Theater Provider 08/28 Released with Work/Duty Limitations [facility] OUTPATIENT [id number] 2 Theater Provider 09/01 Released w/o Limitations [facility] OUTPATIENT [id number] 1 Theater Provider 09/10 Released w/o Limitations [facility] OUTPATIENT [id number] 5 Theater Provider 09/15 Sick at Home/Quarter s Theater Fac[facility] Theater Facility OUTPATIENT [id number] 3 Theater Provider 09/16 Sick at Home/Quarter s [facility] OUTPATIENT [id number] 5 Theater Provider 09/17 Sick at Home/Quarter s [facility] OUTPATIENT [id number] 4 Theater Provider 10/09 Released w/o Limitations Theater Facilit y [place] [address]) OUTPATIENT [id number] Notes Entered by: SARAI MARQUEZ 25 Nov 2019 1127 ------- ------- ------- ------- -- ELMER SOARES 11/25 Released w/o Limitations [place]([facility] [address]) [place] Hearing Conservat ion) OUTPATIENT [id number] Notes Entered by: CAM HU I 25 Nov 2019 1240 ------- ------- ------- ------- -- POST JADE HO I 11/25 Released w/o Limitations [place] Hearing Conserv ation) [place]) OUTPATIENT [id number] Notes Entered by: ASAD STEEL 25 Nov 2019 1305 ------- ------- ------- ------- -- HERMAN 63SELENA OLIVEIRA 11/25 Released w/o Limitations [place]) [facility] [id number] Diagnos is: ICD-10- CM F43.12 Post-tr aumatic stress disorde r, chronic
ST TYRA GABRIEL 06/16 [facility] OFFICE O/P EST LOW 20-29 MIN [id number] Diagnos is: ICD-10- CM M54.59 Other low back pain
GAUNYA,CHR ISTOPHER M 06/23 [facility] Encounter [id number] 06/24 [facility] POS AIRWAY PRESSURE CPAP [id number] Diagnos is: ICD-10- CM G47.30 Sleep apnea, unspeci fied
ST DENISA MARTINEZI E P 06/26 [facility] Encounter [id number] 07/11 [facility] Out[facility] Encounter [id number] 09/05 [facility] OFFICE O/P EST MOD 30-39 MIN [id number] Diagnos is: ICD-10- CM M54.59 Other low back pain
Zaheer ESTEBAN 09/17 [facility] Out[facility] Encounter [id number] 09/19 [facility] Out[facility] Encounter [id number] 09/24 [facility] Out[facility] Encounter [id number] 09/26 [facility] Out[facility] Encounter [id number] 09/26 [facility] Out[facility] Encounter [id number] 09/26 [facility] Out[facility] Encounter [id number] 09/30 [facility] Outpatient Encounter [id number] 10/02 [facility] [place] Outpatient Encounter [id number] 10/06 [facility] OFFICE O/P EST HI 40-54 MIN [id number] Diagnos is: ICD-10- CM F43.12 Post-tr aumatic stress disorde r, chronic
ST HARVEY EPHHANNAH G 10/13 [facility] Outpatient Encounter [id number] 11/03 [facility] Outpatient Encounter [id number] 12/18 [facility] Outpatient Encounter [id number] Diagnos is: ICD-10- CM F43.12 Post-tr aumatic stress disorde r, chronic
ST HARVEY EPHEN G 12/18 [place] [facility] Encounter [id number] 12/22 [facility] Out[facility] Encounter [id number] 02/11 [facility] Outpatient Encounter [id number] 02/19 [facility] OFFICE O/P NEW LOW 30 MIN [id number] Diagnos is: ICD-10- CM G47.33 Obstruc tive sleep apnea (adult) (pediat sarah)
MAXWELL CERON, CTORIA J 02/22 [facility] Out[facility] Encounter [id number] 02/22 [facility] Outpatient Encounter [id number] 03/26 [facility] [place] Outpatient Encounter [id number] 03/29 [place] OFFICE O/P EST HI 40 MIN [id number] Diagnos is: ICD-10- CM F43.12 Post-tr aumatic stress disorde r, chronic
ST STEFANI GABRIELEN G 04/01 [place] [facility] Outpatient Encounter [id number] 04/23 [facility] ORAL DEVICE/RODDY LIANCE CUSFAB [id number] Diagnos is: ICD-10- CM G47.33 Obstruc tive sleep apnea (adult) (pediat sarah)
PRISCA KEYES CTORIA J 04/26 [facility] En[facility] [id number] 06/01 [facility] OFFICE O/P EST LOW 20 MIN [id number] Diagnos is: ICD-10- CM G47.33 Obstruc tive sleep apnea (adult) (pediat sarah)
MAXWELL CERON,PRISCA CTORIA J 06/02 [facility] Outpatient Encounter [id number] 07/12 [facility] OFFICE O/P EST LOW 20 MIN [id number] Diagnos is: ICD-10- CM G47.33 Obstruc tive sleep apnea (adult) (pediat sarah)
PRISCA KEYES CTORIA J 07/13 [facility] OFFICE O/P EST LOW 20 MIN [id number] Diagnos is: ICD-10- CM G47.33 Obstruc tive sleep apnea (adult) (pediat sarah)
PRISCA KEYES CTORIA J 07/14 [facility] Out[facility] Encounter [id number] 07/15 [facility] Outpatient Encounter [id number] 07/26 [facility] OFFICE O/P EST LOW 20 MIN [id number] Diagnos is: ICD-10- CM G47.33 Obstruc tive sleep apnea (adult) (pediat sarah)
PRISCA KEYES CTORIA J 07/27 [facility] Outpatient Encounter [id number] 07/29 [facility] OFFICE O/P EST MOD 30 MIN [id number] Diagnos is: ICD-10- CM F43.12 Post-tr aumatic stress disorde r, chronic
ST TYRA GABRIEL G 08/05 [facility] Outpatient Encounter [id number] 1.09/21 [facility] Outpatient Encounter [id number] 1.09/24 [facility] Outpatient Encounter [id number] 1.10/06 [facility] Outpatient Encounter [id number] 1.10/08 [facility] OFFICE O/P EST MOD 30 MIN [id number] Diagnos is: ICD-10- CM F43.12 Post-tr aumatic stress disorde r, chronic
ST TYRA GABRIEL G 10/11 [facility] [place] [facility] COMPREHENS VE ORAL EVALUATION [id number] 1. Diagnos is: ICD-10- CM G47.33 Obstruc tive sleep apnea (adult) (pediat sarah)
PRISCA KEYES CTORIA J 10/11 [facility] Encounter [id number] 10/26 [facility] CASE MGMT-ORAL HEALTH LIT [id number] Diagnos is: ICD-10- CM K03.6 Deposit s [accret ions] on teeth<b r/> JOHNNA RODRIGUEZ 10/27 [facility] OFFICE O/P EST LOW 20 MIN [id number] Diagnos is: ICD-10- CM G47.33 Obstruc tive sleep apnea (adult) (pediat sarah)
PRISCA KEYES J 11/02 [facility] Outpatient Encounter [id number]/08 [facility] Outpatient Encounter [id number]/08 [place] [facility] [place] SYNCH AUDIO-ONLY EST LOW 20 [id number] Diagnos is: ICD-10- CM F43.12 Post-tr aumatic stress disorde r, chronic
ST TYRA GABRIEL G 12/02 [place] [facility] Outpatient Encounter [id number] 12/02 [facility] Outpatient Encounter [id number] Sandra DAMIAN H 12/09 [place] [facility] [facility] Procedures Combined list of: 1) Procedures from Department of Veterans Affairs facilities going back up to thelast 18 months, not all VA non-surgical procedures are included; 2) All procedures from the Department of Defense facilities. Procedure Procedure Type Code Date Perfomer Comments Steven eric HEPATITIS A AND HEPATITIS B VACCINE (HEPA-HEPB), ADULT DOSAGE, FOR INTRAMUSCULAR USE [facility] ADENOVIRUS VACCINE, TYPE 7, LIVE, FOR ORAL USE [facility] FITTING OF SPECTACLES, EXCEPT FOR APHAKIA; MONOFOCAL [facility] EAR MOLD/INSERT, NOT DISPOSABLE, ANY TYPE [facility] PATIENT EDUCATION, NOT OTHERWISE CLASSIFIED, NON-PHYSICIAN PROVIDER, GROUP, PER SESSION [facility] SCREENING TEST OF VISUAL ACUITY, QUANTITATIVE, BILATERAL [facility] TYPHOID VACCINE, CAPSULAR POLYSACCHARIDE (VICPS), FOR INTRAMUSCULAR USE [facility] SCREENING TEST OF VISUAL ACUITY, QUANTITATIVE, BILATERAL [facility] Screening Test Of Visual Acuity, Quantitative, Bilateral Screening Test Of Visual Acuity, Quantitative, Bilateral [address] [facility] Hepatitis A And Hepatitis B (Intramuscular Use) Adult Dosage Hepatitis A And Hepatitis B (Intramuscular Use) Adult Dosage [address] [facility] Immunization Administration By Injection, One Vaccine Immunization Administration By Injection, One Vaccine [address] [facility] Vaccines Adenovirus Type 7 Live, For Oral Use Vaccines Adenovirus Type 7 Live, For Oral Use 55088 ROBERT REEVES A single vaccine dose adminstered orally. [facility] Vaccines Adenovirus Type 4 Live, For Oral Use Vaccines Adenovirus Type 4 Live, For Oral Use 90106 ROBERT REEVES A single vaccine dose adminstered orally. DoD Immunization Admin Intranasal / Oral Each Additional Vaccine Immunization Admin Intranasal / Oral Each Additional Vaccine 48444 ROBERT REEVES Influenza Virus Vaccine Intranasal Live Attenuated Influenza Virus Vaccine Intranasal Live Attenuated 29138 ROBERT REEVES Flumist: Each sprayer contains a single dose of Flumist; approximately one-half of the contents was administered into each nostril. Patient was observed for 15 min with no adverse reactions. DoD Immunization Admin By Intranasal / Oral Route One Vaccine Immunization Admin By Intranasal / Oral Route One Vaccine [address] [facility] Immunization Administration By Injection, Each Additional Vaccine Immunization Administration By Injection, Each Additional Vaccine [address] [facility] Physician Supervised Injection Intramuscular Antibiotic Physician Supervised Injection Intramuscular Antibiotic [address] [facility] Tdap Vaccine Tdap Vaccine 48733 ROBERT REEVES Visit for an IM injection of 0.5mL of Boostrix (Tetanus and Diphtheria Toxoids and Acellular Pertussis). Was given in the Right Deltoid. Patient was observed for 15 min with no adverse reactions. [facility] Meningococcal Polysaccharide Diphtheria Toxoid Conjugate Vaccine ROBERT REEVES Visit for an IM injection of 0.5mL of Meningococcal Vaccine (Menactra). Was given in the Left Deltoid. Patient was observed for 15 min with no adverse reactions. [facility] Vaccines Viral Polio, Inactivated Vaccines Viral Polio, Inactivated 51652 ROBERT REEVES Visit for an IM injection of 0.5mL of IPOL (Poliovirus Vaccine Inactivated). Was given in the Right Deltoid. Patient was observed for 15 min with no adverse reactions. [facility] Hepatitis A And Hepatitis B (Intramuscular Use) Adult Dosage Hepatitis A And Hepatitis B (Intramuscular Use) Adult Dosage 32809 ROBERT REEVES Visit for an IM injection of 1mL of Twinrix (Hepatitis A and B combination). Was given in the Right Deltoid. Patient was observed for 15 min with no adverse reactions. [facility] Injection, penicillin g benzathine, 100,000 units ROBERT REEVES Visit for an IM injection of 1.2 million/units per 2 mL of Bicillin L-A (Penicillin G Benxathine injectable suspension). Was given in the Left upper quadrant, left buttock. Patient was observed for 15 min with no adverse reactions. [facility] Skin Test Anergy Tuberculin Intradermal Skin Test Anergy Tuberculin Intradermal 72028 ROBERT REEVES Visit for intradermal tuberculin testing of 0.1mL of Mantoux (Tuberculin Purified Protein Derivative). Was given in the Left forearm, volar surface. Patient was observed for 15 min with no adverse reactions. [facility] [employer] Fitting Monofocal Except For Aphakia [employer] Fitting Monofocal Except For Aphakia 19683 AVI ROSAS Determination Of Refractive State Determination Of Refractive State 36704 AVI ROSAS Ophthalmological New Patient Start Comprehensive Care Ophthalmological New Patient Start Comprehensive Care 14452 AVI ROSAS Ear mold/insert, not disposable, any type CHERIE GONZALES [facility] Physician Supervised Group Educational Services Physician Supervised Group Educational Services [address] [facility] Audiometry Group Testing Audiometry Group Testing [address] [facility] Screening Test Of Visual Acuity, Quantitative, Bilateral Screening Test Of Visual Acuity, Quantitative, Bilateral [address] [facility] Threshold Audiogram (Pure Tone) Automated Threshold Audiogram (Pure Tone) Automated 0208T RIKKI CORBIN [facility] Patient education, not otherwise cla ified, non-physician provider, group, per se ion RIKKI CORBIN [facility] Social History Combined list of available smoking, tobacco, and other social history from Department of Defense and Veterans Affairs facilities. Social History Type Response Date Comment Sour e Tobacco smoking status NHIS VA-TOBACCO NEVER USED 11/20/2022 [facility] D History of tobacco use VA-TOBACCO NEVER USED 11/26/2021 [facility] D History of tobacco use [facility] NEVER USED [facility] [place] [facility] This section is an empty social history section. [facility] Plan of Care List of future care activities from Department of Veterans Affairs facilities. Additional future care activities may be listed in the Assessment and Plan section. Date/Time Care Activity Care Activity Detail Facili 12/23/2024 AMBULATORY - MEDICINE AMBULATORY - MEDICI NE [facility] [place] [facility] 12/23/2024 AMBULATORY - MEDICINE AMBULATORY - MEDICI [facility] [place] [facility] 12/30/2024 AMBULATORY - NONE AMBULATORY - NONE [facility] [place] [facility] 01/20/2025 AMBULATORY - PSYCHIATRY AMBULATORY - PSYC [facility] 04/12/2025 AMBULATORY - MEDICINE AMBULATORY - MEDICI NE [facility] [place] [facility] 04/26/2025 AMBULATORY - NONE AMBULATORY - NONE [facility] [place] [facility] 11/02/2024 Consult Order COMMUNITY CARE-D ENTAL SPECIALTY Cons Sheet [facility] [place] [facility] [place] [facility] 11/02/2024 Consult Order HOME SLEEP STUDY NOX/SPOPC OUTPT Cons Sheet [facility] 12/02/2024 Consult Order COMMUNITY CARE-B H PSYCHOTHERAPY Cons Sheet [facility]
--- OUTSIDE RECORDS SUMMARY | 2024-12-10 13:00 | XMS_ITS | Encounter Summary ---
Author Organization [facility] Address [address] [place] [address] Care Team Providers Care Physicist Solid Earth Name Role Phone Unavailable Primary Care Provider Unavailabl e Encounter Details Date Type Department Care Team (Late st Contact Info) Description 07/28/2020 Lab Requisition [facility] Testing [address] [phone] Michele Hwang PA-C [address] [place] [address] Encounter for laboratory testing for COVID-19 virus [...] DETECTED NOT DETECTED 08/01/2020 6:00 PM EDT [facility] Comment: A Not Detected (negative) test [...] providers and patients using the following websites: https://www.PayByGroup.BioMetric Solution/home/Covid-19/HCP/QuestLDTP/ fact-sheet https://www.Retail Solutions/home/Covid-19/Patients/QuestLDTP/ fact-sheet.html This test has been authorized by the FDA under an Emergency Use Authorization (EUA) for use by authorized laboratories. Due to the current public health emergency, [facility] is receiving a high volume of samples [...] about COVID-19 can be found at the [facility] website: www.Vaxess Technologies.BioMetric Solution/Covid19. Microbiology Nasopharyngeal swab / Unknown 07/28/2020 3:29 PM EDT 07/28/2020 3:29 PM EDT [facility] - 08/01/2020 6:00 PM EDT Performing Organization Information: ?Site ID: [id number] ?Name: [facility] ?Address: [address] [place] [address],[place] [address] ?Director: JAMIA CANNON MD Performed at [facility] License number [id number] Michele Hwang PA-C MICROBIOLOGY - NERAL ORDERABLES Performing Organization Address City/State/[facility] Co de Phone Number [facility] documented in this encounter Visit Diagnoses Diagnosis Encounter for laboratory testing for COVID-19 virus documented in this encounter
--- OUTSIDE RECORDS SUMMARY | 2024-12-10 13:00 | XMS_ITS | Patient Health Record ---
Author Organization [facility] Address [address] [address] Care Team Providers Care Food Safety Director Name Role Phone Nena Ortiz Primary Care Provider [phone] Allergies No Known Allergies Results Component Value Reference Range Notes URINALYSIS, COMPLETE W/REFLE X TO CULTURE Reviewed date:11/28/2024 09:26:19 AM Interpretation: Performing Lab:NL1, [facility] [id number] [place], [place] [address] Jamia Cannon M.D. Notes/Report: FASTING: NO COLOR [...] REFLEXIVE URINE CULTURE NO C ULTURE INDICATED CLIENT EDUCATION TRACKING Reviewed date:11/28/2024 09:26:19 AM Interpretation: Performing Lab:NL1, [facility] [address] Jamia Cannon M.D. Notes/Report: FASTING: NO CLIENT EDUCATION TRACKING The Requisition we received did not include a [facility] account number. To prevent delays in testing and processing of your orders please provide the following information with every order submitted: [facility] account number and account name Client address Client phone and fax number NPI number of ordering physician along with the physician name. IRON, TIBC AND FERRITIN PANE L Reviewed date:11/13/2024 09:17:35 PM Interpretation: Performing Lab:ANNABELLA1, [facility] [address] Jamia Cannon M.D. Notes/Report: IRON, TOTAL 55 50-180 mcg/dL IRON BINDING CAPACITY 244 250-425 mcg/dL (juan jose c) % SATURATION 23 20-48 % (calc) FERRITIN 109 38-380 ng/mL LIPID PANEL WITH REFLEX TO D IRECT LDL Reviewed date:11/13/2024 09:17:35 PM Interpretation: Performing Lab:NL1, [facility] [address] Jamia Cannon M.D. Notes/Report: CHOLESTEROL, TOTAL 132 <200 mg/dL HDL CHOLESTEROL 30 > OR = 40 mg/dL TRIGLYCERIDES 180 <150 mg/dL LDL-CHOLESTEROL 74 Reference range: <100 Desirable range <100 mg/dL for primary prevention; <70 mg/dL for patients with CHD or diabetic patients with > or = 2 CHD risk factors. LDL-C is now calculated using the Pradip-Shirley calculation, which is a validated novel method providing better accuracy than the Friedewald equation in the estimation of LDL-C. Pradip SS et al. BOBBI. 2013;310(19): 6836-3910 (http://education.Regent Education/faq/XHB198) CHOL/HDLC RATIO 4.4 <5.0 (calc) NON HDL CHOLESTEROL 102 <130 mg/dL (calc) For patients with diabetes plus 1 major ASCVD risk factor, treating to a non-HDL-C goal of <100 mg/dL (LDL-C of <70 mg/dL) is considered a therapeutic option. COMPREHENSIVE METABOLIC PANE L Reviewed date:11/13/2024 09:17:35 PM Interpretation: Performing Lab:AN[facility]BELLA1 [facility] [address] Jamia Cannon M.D. Notes/Report: GLUCOSE 96 [...] Reviewed date:11/13/2024 09:17:35 PM Interpretation: Performing Lab:NL1, [facility] [address] Jamia Cannon M.D. Notes/Report: WHITE BLOOD CELL [...] MPV 10.0 7.5-12.5 fL ABSOLUTE NEUTROPHILS 2865 6399-5913 cells/uL ABSOLUTE LYMPHOCYTES 2667 040-4278 cells/uL ABSOLUTE MONOCYTES 458 200-950 cells/uL ABSOLUTE EOSINOPHILS 276 15-500 cells/uL ABSOLUTE BASOPHILS 31 0-200 cells/uL NEUTROPHILS 55.1 LYMPHOCYTES 30.2 MONOCYTES 8.8 EOSINOPHILS 5.3 BASOPHILS 0.6 URINALYSIS, COMPLETE W/REFLE X TO CULTURE Reviewed date:11/13/2024 09:17:35 PM Interpretation: Performing Lab:[facility] [place] [phone] Jamia Cannon M.D. Notes/Report: COLOR YELLOW YELLOW [...] PROTEIN Reviewed date:11/13/2024 09:17:35 PM Interpretation: Performing Lab:[facility] [address] Jamia Cannon M.D. Notes/Report: C-REACTIVE PROTEIN 9.7 <8.0 mg/L HEMOGLOBIN A1c Reviewed date:11/13/2024 09:17:35 PM Interpretation: Performing Lab:[facility] [address] Jamia Cannon M.D. Notes/Report: HEMOGLOBIN A1c [...] diagnosis of diabetes in children. According to [place] Diabetes Association (ADA) guidelines, hemoglobin A1c <7.0% represents optimal control in non- diabetic patients. Different metrics may apply to specific patient populations. Standards of Medical Care in Diabetes(ADA). VITAMIN B12 Reviewed date:11/13/2024 09:17:35 PM Interpretation: Performing Lab:[facility], [facility] [address] Jamia Cannon M.D. Notes/Report: VITAMIN B12 387 792-1946 pg/mL [facility] 25-OH VIT D, (D 2,D3), LC/MS/MS Reviewed date:11/13/2024 09:17:35 PM Interpretation: Performing Lab:[facility]LL[facility]1, [facility] [address] Jamia Cannon M.D. Notes/Report: VITAMIN D,25-OH,TOTAL,IA 28 30-100 ng/mL Vitamin D Status 25-OH Vitamin D: Deficiency: <20 ng/mL Insufficiency: 20 - 29 ng/mL Optimal: > or = 30 ng/mL For 25-OH Vitamin D testing on patients on D2-supplementation and patients for whom quantitation of D2 and D3 fractions is required, the QuestAssureD(TM) 25-OH VIT D, (D2,D3), LC/MS/MS is recommended: order code 57730 (patients >2yrs). See Note 1 Note 1 For additional information, please refer to http://education.Panna/faq/IMC932 (This link is being provided for informational/ educational purposes only.) URINE CYTOLOGY Reviewed date:11/28/2024 09:26:19 AM Interpretation: Performing Lab:[facility] [address] Jamia Cannon M.D. Notes/Report: SCREENER PATY, PRESLEY(ASCP) CT screening location: [address] [address] PATHOLOGIST Néstor Diaz M.D., Board Certified in Anatomic Pathology, Clinical Pathology and Cytopathology (electronic signature) A SOURCE Urine A PROCEDURE Cytology A GROSS DESCRIPTION The name on the container is in agreement with the requisition. 50 ml of clear, pale yellow fluid, received in Cytolyt fixative and processed by the ThinPrep method. (DC)11/16/2024 Gross exam(s) performed at: [facility] [address] [address] Game Technician: JAMIA CANNON MD A DIAGNOSIS NEGATIVE FOR HIGH-GRADE UROTHELIAL CARCINOMA. - BENIGN UROTHELIAL AND SQUAMOUS CELLS PRESENT. TSH+FREE T4 Reviewed date:11/13/2024 09:17:35 PM Interpretation: Performing Lab:NL1, [facility] [id number] [place], [place] [address] Jamia Cannon M.D. Notes/Report: TSH 5.55 0.40-4.50 [...] Problem Status W/U Status Risk Notes Problem 43143806 Vitamin D deficiency (E55.9) Active confirmed Problem Mood disorder (40597785) Mood disorder (F39) Active confirmed Problem 857544601 Fatty liver (K76.0) Active confirmed Problem 791691038 Mild intermitten t asthma without complication (J45.20) Active confirmed Problem 26341804 Hypertension, unspecified type (I10) Active confirmed Problem 78235053 Other migraine without status migrainosus, not intractable [...] Date Provider Diagnosis [facility] [address] [place] [phone]/10/2024 Nena Ortiz Hypertension, unspecified type I10 [facility] [address] [address] 09/17/2024 Nena Ortiz Encounter for genera l adult medical examination with abnormal findings Z00.01 ; Hypertension, unspecified type I10 ; Left foot pain M79.672 and Other migraine without status migrainosus, not intractable G43.809 [facility] [address] [address] 10/15/2024 Nena Ortiz Left foot pain M79.672 and Left lateral ankle pain M25.572 [facility] [address] [address] 11/18/2024 Nena Ortiz Flank pain R10.9 ; Fatty liver K76.0 and Frequent urination R35.0 [facility] [address] [address] 11/23/2024 Nena [facility] Md [address] [place] [address]/10/2024 Nena Barrett Md [address] [place] [address] 08/10/2024 Nena Barrett Md [address] [place] [address] 11/16/2024 Nena Barrett Md [address] [place] [address] 11/20/2024 N[facility] Md [address] [place] [address] 11/20/2024 N[facility] Barrett Md [address] [place] [address] 11/24/2024 Nena Ortiz Assessments Encounter Date Diagnosis [...] and B ladder (KUB) 11/18/2024 Urine Cytology 11/18/2024 Urine Cytology 09/17/2024 Urine Cytology 10/15/2024 X ray : LS [...] 10:00:00 AM, [address], [place], [address], Insurance Providers Payer Name Payer Address Payer Phone Subscriber Number Group Number Insured Name Patient Relationship to Insured Coverage Start Date Coverage End Date [facility] [address] [place] [address] [id number] Thuan Nguyen Self - patient is the insured Medical (General) History Medical History History ICD Code Mild intermittent asthma without complic ation J45.20 Other migraine without status migrainosu s, not intractable G43.809 Mood disorder F39
--- OUTSIDE RECORDS SUMMARY | 2024-12-10 13:00 | XMS_ITS | Clinical Summary ---
Author Organization [facility] Address [address] [place] [address] Care Team Providers Care Die Cutter Apprentice Name Role Phone Rosamaria Sam MD Primary Care Provider Immunizations Name Administration Dates Next Due Pfizer [...] age to complete this topic Care Teams Die Cutter Apprentice Relationship Specialty Start Date End Date Rosamaria Sam MD [address] [place] [address] Dr [address] [facility] [place] [address] PCP - General 07/03/24
--- OUTSIDE RECORDS SUMMARY | 2024-12-10 13:00 | XMS_ITS | Encounter Summary ---
Author Organization [facility] Address [address] [place] [address] Care Team Providers Care Colon Therapist Name Role Phone Unavailable Primary Care Provider Unavailabl e Encounter Details Date Type Department Care Team (Late st Contact Info) Description 06/16/2020 Lab Requisition [facility] Testing [address] [phone] Michele Hwang PA-C [address] [place] [address] Encounter for laboratory testing for COVID-19 virus [...] DETECTED NOT DETECTED 06/17/2020 3:00 PM EDT [facility] Comment: A Not Detected (negative) test result [...] providers and patients using the following websites: https://www.OneDoc.Lumentus Holdings/home/Covid-19/HCP/QuestLDTP/ fact-sheet https://www.CrowdTransfer/home/Covid19/Patients/QuestLDTP/ fact-sheet.html This test has been authorized by the FDA under an Emergency Use Authorization (EUA) for use by authorized laboratories. Due to the current public health emergency, [facility] is receiving a high volume of [...] about COVID-19 can be found at the [facility] website: www.Matchalarm.Lumentus Holdings/Covid19. Microbiology Nasopharyngeal swab / Unknown 06/16/2020 1:24 PM EDT 06/16/2020 1:24 PM EDT [facility] - 06/17/2020 3:00 PM EDT Performing Organization Information: ?Site ID: [id number] ?Name: [facility] ?Address: [address] [place] [address],[facility] [place] [address] ?Director: JAMIA CANNON MD Performed at [facility] License number [id number] Michele Hwang PA-C MICROBIOLOGY - NERAL ORDERABLES Performing Organization Address City/State/[facility] Co de Phone Number [facility] documented in this encounter Visit Diagnoses Diagnosis Encounter for laboratory testing for COVID-19 virus documented in this encounter
--- OUTSIDE RECORDS SUMMARY | 2024-12-10 13:01 | XMS_ITS | Encounter Summary ---
Author Organization [facility] Address [address] [place] [address] Care Team Providers Care Hairspring Inspector Name Role Phone Unavailable Primary Care Provider Unavailabl e Encounter Details Date Type Department Care Team (Late st Contact Info) Description 09/08/2020 Lab Requisition [facility] Lab DOC: Raudel Rodriguez [address] [place] [phone] Michele Hwang PA-C [address] [place] [address] Encounter for laboratory testing for COVID-19 virus [...] (COVID-19), Qual (09/08/2020 3:27 PM EDT) Pathologist [facility] SARS CoV 2 RNA, Qual NOT DETECTED NOT DETECTED 09/10/2020 5:00 AM EDT [facility] [...] providers and patients using the following websites: https://www.Letsmake.MazeBolt Technologies/home/Covid-19/HCP/QuestLDTP/ fact-sheet https://www.Letsmake.MazeBolt Technologies/home/Covid-19/Patients/QuestLDTP/ fact-sheet.html This test has been authorized by the FDA under an Emergency Use Authorization (EUA) for use by authorized laboratories. Due to the current public health emergency, [facility] is receiving a high volume of samples [...] about COVID-19 can be found at the [facility] website: www.Parametric Sound.MazeBolt Technologies/Covid19. Microbiology Nasopharyngeal swab / Unknown 09/08/2020 3:27 PM EDT 09/08/2020 3:27 PM EDT Narrative [facility] - 09/10/2020 5:00 AM EDT Performing Organization Information: ?Site ID: [id number] ?Name: [facility] ?Address: [address] [place] [address],[place] [address] ?Director: JAMIA CANNON MD Performed at [facility] License number [id number] Michele Hwang PA-C MICROBIOLOGY - NEROH ORDERABLES Performing Organization Address City/State/[facility] Co de Phone Number [facility] documented in this encounter Visit Diagnoses Diagnosis Encounter for laboratory testing for COVID-19 virus documented in this encounter
--- OUTSIDE RECORDS SUMMARY | 2024-12-10 13:01 | XMS_ITS | Clinical Summary ---
Author Organization [facility] Address [address] [place] [address] Care Team Providers Care Engine House Helper Name Role Phone Unavailable Primary Care Provider [...]
--- OUTSIDE RECORDS SUMMARY | 2024-12-10 13:01 | XMS_ITS | Encounter Summary ---
Author Organization [facility] Address [address] [place] [address] Care Team Providers Care Integrity Assessor Name Role Phone Unavailable Primary Care Provider Unavailabl e Encounter Details Date Type Department Care Team (Late st Contact Info) Description 08/18/2020 Lab Requisition [facility] Testing [address] [phone] Michele Hwang PA-C [address] [place] [address] Encounter for laboratory testing for COVID-19 virus [...] 08/20/2020 12:00 AM EDT [facility] Comment: A Not Detected (negative) [...] providers and patients using the following websites: https://www.Smartsheet.Easy Square Feet/home/Covid-19/HCP/QuestLDTP/ fact-sheet https://www.Flaskon/home/Covid-19/Patients/QuestLDTP/ fact-sheet.html This test has been authorized by the FDA under an Emergency Use Authorization (EUA) for use by authorized laboratories. Due to the current public health emergency, [facility] is receiving a high volume of samples [...] about COVID-19 can be found at the [facility] website: www.Traxer.Easy Square Feet/Covid19. Microbiology Nasopharyngeal swab / Unknown 08/18/2020 3:51 PM EDT 08/18/2020 3:51 PM EDT [facility] - 08/20/2020 12:00 AM EDT Performing Organization Information: ?Site ID: [id number] ?Name: [facility] ?Address: [address] [place] [address],[place] [address] ?Director: JAMIA CANNON MD [facility] at [facility] License number [id number] Michele Hwang PA-C MICROBIOLOGY - NERAL ORDERABLES Performing Organization Address City/State/[facility] Co de Phone Number [facility] documented in this encounter Visit Diagnoses Diagnosis Encounter for laboratory testing for COVID-19 virus documented in this encounter
--- OUTSIDE RECORDS SUMMARY | 2024-12-10 13:01 | XMS_ITS | Encounter Summary ---
Author Organization [facility] Address [address] [place] [address] Care Team Providers Care Tattoo Identifier Name Role Phone Unavailable Primary Care Provider Unavailabl e Encounter Details Date Type Department Care Team (Late st Contact Info) Description 09/22/2020 Lab Requisition [facility] Testing [address] [phone] Michele Hwang PA-C [address] [place] [address] Encounter for laboratory testing for COVID-19 virus [...] (COVID-19), Qual (09/22/2020 3:25 PM EST) Pathologist [facility] SARS CoV 2 RNA, Qual NOT DETECTED NOT DETECTED 09/24/2020 7:00 PM EST [facility] Comment: A Not Detected (negative) test [...] providers and patients using the following websites: https://www.SocialDefender.e-Chromic Technologies/home/Covid-19/HCP/QuestLDTP/ fact-sheet https://www.Huango.cn/home/Covid-19/Patients/QuestLDTP/ fact-sheet.html This test has been authorized by the FDA under an Emergency Use Authorization (EUA) for use by authorized laboratories. Due to the current public health emergency, [facility] is receiving a high volume of samples [...] about COVID-19 can be found at the [facility] website: www.Bravo Wellness.e-Chromic Technologies/Covid19. Microbiology Nasopharyngeal swab / Unknown 09/22/2020 3:25 PM EST 09/22/2020 3:25 PM EST [facility] - 09/24/2020 7:00 PM EST Performing Organization Information: ?Site ID: [id number] ?Name: [employer] ?Address: [address] [place] [address],[facility] [place] [address] ?Director: JAMIA CANNON MD Performed at [facility] License number [id number] Michele Hwang PA-C MICROBIOLOGY - NERAL ORDERABLES Performing Organization Address City/State/[facility] Co de Phone Number [facility] documented in this encounter Visit Diagnoses Diagnosis Encounter for laboratory testing for COVID-19 virus documented in this encounter
--- OUTSIDE RECORDS SUMMARY | 2024-12-10 13:02 | XMS_ITS ---
Author Organization [facility] Address [address] [place] [address] Care Team Providers Care Rippler Name Role Phone Nena Ortiz Primary Care Provider [phone] REASON FOR VISIT Urine cytology Encounters Encounter Location Date Provider Diagnosis [facility] [address] [place] [address] 11/20/2024 Nena Ortiz Plan Of Treatment Next Appt Details Provider Name:Nena huston, 12/20/2024 10:00:00 AM, [address], [place], [address], Progress Notes * TIFFANY FelicianosDOB:1990 (34 yo M)Acc No.[id number]:11/20/2024 Patient:?Thuan ALLEN :1990???Age:34 Y???Sex:Male Address:[facility] [place], [address] * true * Date:? Generated for Cassyi tamika/Barbra/eTransmitting on:?12/10/2024 01:01 PM EST
== END 2024-12-10 12:15 | disposition home or self-care (01) ==
PROVIDERS: PCP Internal Medicine; Visit Provider Nurse Practitioner Family
DX: L03.012 Cellulitis of left finger (principal)

== ENCOUNTER → 2024-12-22 09:33 | Outpatient (BNVA) | payer BC, SELFPAY | PROVIDERS: PCP Internal Medicine; Visit Provider Physician Assistant Surgical ==

== ENCOUNTER 2024-12-22 10:05 | Outpatient (REF) | payer BC, SELFPAY ==
--- OUTSIDE RECORDS SUMMARY | 2024-12-22 11:01 | XMS_ITS | Clinical Summary ---
Author Organization [facility] Address [address] [place] [address] Care Team Providers Care Pulmonary Physician Name Role Phone Rosamaria Sam MD Primary Care Provider [phone] Allergies No known active allergies Medications No [...] age to complete this topic Care Teams Pulmonary Physician Relationship Specialty Start Date End Date Flaco, Rosamaria Jerome MD [address] [place] [address] [address] [facility] [place] [address] PCP - General Internal Medicine 07/03/24
--- OUTSIDE RECORDS SUMMARY | 2024-12-22 11:02 | XMS_ITS | Continuity of Care Document ---
Author Name [facility] Organization [facility] Care Team Providers Care Ball Points Inspector Name Role Phone [facility] Unavailable Unavailable Problems [...] [facility] Chronic Post-Tra[facility] Stress Disorder ([facility] [id number]) Active Condition Oct 13, 2023 Entered By: MIGUELITO GABRIEL Comment: reviewed [place] Comanagement Active Condition Dec 01, 2022 Entered By: RUTHIE ESTEBAN Comment: Belén Knight [facility] Exposure to potentially hazardous substance Active Condition Dec 15, 2022 Entered By: JANEY RODRIGEZ Comment: [facility]) History of deployment Active Condition [facility] Major depressive disorder Active Condition Jan 25, 2021 Entered By: MIGUELITO GABRIEL Comment: reviewedAug 20, 2021 Entered By: MIGUELITO GABRIEL Comment: reviewedOct 13, 2023 Entered By: MIGUELITO GABRIEL Comment: reviewed [facility] Migraine Active Condition Jul 25 Entered By: RUTHIE ESTEBAN Comment: followed by Dr. Vo [facility] Sleep apnea Active Condition Sep 09, 2022 Entered By: RUTHIE ESTEBAN Comment: unable to tolerate PAP therapy [facility] Affective disorder Inactive Condition 10/13/2023 [facility] Chronic post-traumatic stress disorder Inactive Condition 08/20/2021 LAKESHAKatie GARZA Diagnosis: ICD-10-CM F43.12 Post-traumatic stress disorder, chronic Active Diagnosis [place] Diagnosis: ICD-10-CM G47.33 Obstructive sleep apnea (adult) (pediatric) Active Diagnosis [facility] Diagnosis: ICD-10-CM K03.6 Deposits [accretions] on teeth Active Diagnosis [facility] Diagnosis: ICD-10-CM M54.59 Other low back pain Active Diagnosis [place] Diagnosis: ICD-10-CM G47.30 Sleep apnea, unspecified Active Diagnosis [facility] Medications Combined list of outpatient medications from Department of [facility] and [facility] Affairs facilities.Medications provided include 1) outpatient medications from the last 15 months, and 2) patient-reported medications. Medication Details Route Status Patient Instructions Prescription Expires Prescription Number Last Dispense Date Ordering Provider Order Date Order Qty Source AMITRIPTYLI NE HCL 10MG TAB TAKE ONE TABLET BY MOUTH AT BEDTIME ORAL ACTIVE Guy GABRIEL spring IELD AMOXICILLIN TRIHYDRATE 500MG CAP TAKE ONE CAPSULE BY MOUTH TWICE DAILY ORAL 10/17/2023 [id number] GLORIA ESTEBAN O 2022 20 IELD sertraline (U/D) 25 MG ORAL TAB TAKE ONE TABLET BY MOUTH ONCE DAILY FOR MOOD 10/13/2024 [id number] MIGUELITO GABRIEL 2023 60 [facility] SERTRALINE HCL 25MG TAB TAKE ONE TABLET BY MOUTH ONCE DAILY FOR POSTTRAU MATIC STRESS SYNDROME ORAL SUSPEND ED 08/06/2025 [id number] Guy GABRIEL 2023 60 [place] SERTRALINE HCL 25MG TAB TAKE ONE TABLET BY MOUTH ONCE DAILY FOR MOOD ORAL DISCONT INUED 10/13/2024 [id number] Guy GABRIEL 2022 60 IELD SODIUM FLUORIDE 1.1% TOOTHPASTE BRUSH SMALL AMOUNT TO TEETH TWICE DAILY FOR TOOTH DECAY PREVENTI ON DENTAL ACTIVE 10/12/2025 [id number] 4 Geraldine KEYES 2023 51 [facility] UBROGEPANT TAB TAKE BY MOUTH ONE TIME ORAL ACTIVE Guy GABRIEL 2023 [place] Allergies, Adverse Reactions, Alerts Combined list of allergies from Department of [facility] and Veterans Affairs facilities. It does not include entries that were removed or entered in error. Substance Category Reaction Severity Reaction type Status Date Reported Comments Source No Known Allergies Drug allergy (disorder) active 08/24/2013 Pradip [facility] [place] Immunizations Combined list of available immunizations from the Department of Defense and Veterans Affairs facilities. Immunization Series Date Given Administered By Site Reaction Lot Number CVX Code Drug [employer] Concierge Status Comments Source influenza, injectable, quadrivalent, contains preservative 1 2018 [id number] Seqirus (SEQ) complet ed influenza , injectabl e, quadrival ent, contains preservat vaughn DoD anthrax vaccine 1 2018 [id number] [facility] (MIP[facility] complet ed anthrax vaccine DoD typhoid Vi capsular polysaccharid e vaccine 1 2018 [id number] Sanofi Pasteur (PMC) complet ed typhoid Vi capsular polysacch aride vaccine DoD Influenza, seasonal, injectable, preservative free 1 2017 [id number] Seqirus (SEQ) comple t ed Influenza , seasonal, injectabl e, preservat vaughn free DoD Influenza, injectable, quadrivalent, preservative free 1 2017 UNK 150 Unknown (UNK) comple t ed Influenza , injectabl e, quadrival ent, preservat vaughn free DoD Influenza, seasonal, injectable, preservative free 1 2016 [id number] 140 Unknown (UNK) comple t ed Influenza , seasonal, injectabl e, preservat vaughn free DoD Influenza, seasonal, injectable, preservative free 1 2015 [id number] 140 Other (OTH) complet ed Influenza , seasonal, injectabl e, preservat vaughn free DoD Influenza, seasonal, injectable, preservative free 1 2014 [id number] 140 Other (OTH) complet ed Influenza , seasonal, injectabl e, preservat vaughn free DoD hepatitis B vaccine, adult dosage 3 2013 [id number] 43 Other (OTH) complet ed hepatitis B vaccine, adult dosage DoD hepatitis A vaccine, adult dosage 3 2013 [id number] 52 Other (OTH) complet ed hepatitis A vaccine, adult dosage DoD Influenza, seasonal, injectable, preservative free 1 2013 [id number] 140 [employer] [facility] (SKB) complet ed Influenza , seasonal, injectabl e, preservat vaughn free DoD hepatitis A and hepatitis B vaccine 2 2012 [id number] 104 [facility] (SKB) complet ed hepatitis A and hepatitis B vaccine DoD measles, mumps and rubella virus vaccine 1 2012 UNK 03 Unknown (UNK) Not Given measles, mumps and rubella virus vaccine DoD varicella virus vaccine 1 2012 UNK 21 Unknown (UNK) Not Given varicella virus vaccine DoD hepatitis A and hepatitis B vaccine 1 2012 [id number] 104 [employer] (SKB) complet ed hepatitis A and hepatitis B vaccine DoD Adenovirus, type 4 and type 7, live, oral 1 2012 [id number] 143 [employer] (BRR) complet ed Adenoviru s, type 4 and type 7, live, oral DoD influenza, live, intranasal, quadrivalent 1 2012 [id number] 149 [employer] (CSL) complet ed influenza , live, intranasa l, quadrival ent DoD poliovirus vaccine, inactivated 1 2012 [id number] 10 Sanofi Pasteur (PMC) complet ed polioviru s vaccine, inactivat ed DoD meningococcal polysaccharid e (groups A, C, Y and W-135) diphtheria toxoid conjugate vaccine (MCV4P) 1 2012 [id number] 114 [employer] (SKB) complet ed meningoco ccal polysacch aride (groups A, C, Y and W-135) diphtheri a toxoid conjugate vaccine (MCV4P) DoD tetanus toxoid, reduced diphtheria toxoid, and acellular pertu is vaccine, adsorbed 1 2012 [id number] 115 Sanofi Pasteur (PMC) complet ed tetanus [...] Sep 17, 2023 11:53 AM Reporting Lab: [facility] [address] [address] Performing Lab: [facility] [place] [facility] [address] [address] [facility] WSTRN [facility] BASIC METABOLIC PANEL (fasting) UREA NITROGEN [MASS/VOLUM E] IN SERUM OR PLASMA 13 mg/dL 7 - 25 09/17 Specimen Type: SERUM No comment entered. Ordering Provider: JOSHUA ESTEBAN Report Released Date/Time: March 19, 2023 04:54 PM Reporting Lab: [facility] [place] [facility] [address] [address] Performing Lab: [facility] WSTRN [facility]ITALUSED[facility] [address] [address] [facility] BASIC METABOLIC PANEL (fasting) GLUCOSE [MASS/VOLUM E] IN SERUM OR PLASMA 92 mg/dL 65 - 100 09/17 Specimen Type: SERUM No comment entered. Ordering Provider: JOSHUA ESTEBAN Report Released Date/Time: March 19, 2023 04:54 PM Reporting Lab: [facility]PITALRWIREGRASS MEDICAL CENTERTRN [facility]ITALUSE[address] [address] Performing Lab: [facility]ITALRL TRN [facility]ITALUSE[address] [address] [facility]ITALREAST [facility]ENTERN [facility] BASIC METABOLIC PANEL (fasting) SODIUM [MOLES/VOLU ME] IN SERUM OR PLASMA 139 mmol/L 135 - 145 09/17 Specimen Type: SERUM No comment entered. Ordering Provider: JOSHUA ESTEBAN Report Released Date/Time: March 19, 2023 04:54 PM Reporting Lab: [facility]RL WSTRN [facility]ITALUSETS [facility] [address] [address] Performing Lab: [facility]N [facility]ITALUSE[address] [address] [facility]ITALRE[facility]ERN [facility]ITALUSE [facility] BASIC METABOLIC PANEL (fasting) POTASSIUM [MOLES/VOLU ME] IN SERUM OR PLASMA 4.2 mmol/L 3.5 - 5.0 09/17 Specimen Type: SERUM No comment entered. Ordering Provider: JOSHUA ESTEBAN Report Released Date/Time: March 19, 2023 04:54 PM Reporting Lab: [facility] [place] [facility] [address] [address] Performing Lab: [facility] [place] [facility] [address] [address] [facility] [place] [facility] BASIC METABOLIC PANEL (fasting) CHLORIDE [MOLES/VOLU ME] IN SERUM OR PLASMA 105 mmol/L 100 - 110 09/17 Specimen Type: SERUM No comment entered. Ordering Provider: JOSHUA ESTEBAN Report Released Date/Time: March 19, 2023 04:54 PM Reporting Lab: [facility] [place] [facility] [address] [address] Performing Lab: [facility] [place] [address] [address] [facility]RL [facility]N [facility] BASIC METABOLIC PANEL (fasting) CARBON DIOXIDE, TOTAL [MOLES/VOLU ME] IN SERUM OR PLASMA 26 meq/L 20 - 30 09/17 Specimen Type: SERUM No comment entered. Ordering Provider: JOSHUA ESTEBAN Report Released Date/Time: March 19, 2023 04:54 PM Reporting Lab: [facility] [place] [facility] [address] [address] Performing Lab: [facility] [place] [address] [address] [place] [facility] BASIC METABOLIC PANEL (fasting) CREATININE [MASS/VOLUM E] IN SERUM OR PLASMA 1.11 mg/dL 0.50 - 1.40 09/17 Specimen Type: SERUM No comment entered. Ordering Provider: JOSHUA ESTEBAN Report Released Date/Time: March 19, 2023 04:54 PM Reporting Lab: [facility] [place] [facility] [address] [address] Performing Lab: [facility] [place] [address] [address] [facility] [place] [facility] BASIC METABOLIC PANEL (fasting) GLOMERULAR FILTRATION RATE/1.73 SQ M.PREDICTED [VOLUME RATE/AREA] IN SERUM, PLASMA OR BLOOD BY CREATININE- BASED FORMULA (CKD-EPI 2020) 90 mL/min 60 09/17 Specimen Type: SERUM No comment entered. Ordering Provider: JOSHUA ESTEBAN Report Released Date/Time: March 19, 2023 04:54 PM Reporting Lab: [facility] [place] [facility] [address] [address] Performing Lab: [place] [facility] [facility] [address] [address] [facility]RL [facility]N [place] [facility] CBC AND DIFF (AUTO) LEUKOCYTES [#/VOLUME] IN BLOOD BY AUTOMATED COUNT 11.72 10*3/u L 4.50 - 11.00 09/17 H Specimen Type: BLOOD No comment entered. Ordering Provider: JOSHUA ESTEBAN Report Released Date/Time: March 19, 2023 04:54 PM Reporting Lab: [facility] [place] [facility] [address] [address] Performing Lab: [place] [facility] [facility] [address] [address] [facility] [place] [facility] CBC AND DIFF (AUTO) ERYTHROCYTE S [#/VOLUME] IN BLOOD BY AUTOMATED COUNT 5.54 10*6/u L 4.23 - 5.66 09/17 Specimen Type: BLOOD No comment entered. Ordering Provider: JOSHUA ESTEBAN Report Released Date/Time: March 19, 2023 04:54 PM Reporting Lab: [facility] [place] [facility] [address] [address] Performing Lab: [facility] [facility] [address] [address] [place] [facility] [place] [facility] CBC AND DIFF (AUTO) HEMOGLOBIN [MASS/VOLUM E] IN BLOOD 14.9 g/dL 12.8 - 17 09/17 Specimen Type: BLOOD No comment entered. Ordering Provider: JOSHUA ESTEBAN Report Released Date/Time: March 19, 2023 04:54 PM Reporting Lab: [facility] [address] [address] Performing Lab: [facility]RL TRN [place] [facility] [address] [address] [facility] [place] [facility] CBC AND DIFF (AUTO) HEMATOCRIT [VOLUME FRACTION] OF BLOOD BY AUTOMATED COUNT 45.1 39.2 - 50.4 09/17 Specimen Type: BLOOD No comment entered. Ordering Provider: JOSHUA ESTEBAN Report Released Date/Time: March 19, 2023 04:54 PM Reporting Lab: [facility]RL TRN [place] [facility] [address] [address] Performing Lab: [facility]PITALRWIREGRASS MEDICAL CENTERTRN WIREGR[facility] CENTERCHUSETS [facility] [address] [address] [facility]ITALRE[facility]ENTERN W[facility]GR[facility] CENTERCHUSE [facility] CBC AND DIFF (AUTO) MCV [ENTITIC VOLUME] BY AUTOMATED COUNT 81.4 fL 82 - 99 09/17 L Specimen Type: BLOOD No comment entered. Ordering Provider: JOSHUA ESTEBAN Report Released Date/Time: March 19, 2023 04:54 PM Reporting Lab: [facility]ITALRWIREGRASS MEDICAL CENTERTRN [place] [facility] [address] [address] Performing Lab: [facility]ITALRL TRN [facility]ITALUSETS [facility] [address] [address] [facility]ITALRE[facility]ENTERN [facility] CENTERCHUSE [facility] CBC AND DIFF (AUTO) MCHC [MASS/VOLUM E] BY AUTOMATED COUNT 33.0 g/dL 30.8 - 35.1 09/17 Specimen Type: BLOOD No comment entered. Ordering Provider: JOSHUA ESTEBAN Report Released Date/Time: March 19, 2023 04:54 PM Reporting Lab: [facility]N [place] [facility] [address] [address] Performing Lab: [facility]ITALRL TRN [facility]ENTERCHUSETS [facility] [address] [address] [facility]RE[facility]ENTERN [facility]GR[facility] CENTERCHUSE [facility] CBC AND DIFF (AUTO) PLATELETS [#/VOLUME] IN BLOOD BY AUTOMATED COUNT 294 10*3/u L 140 - 360 09/17 Specimen Type: BLOOD No comment entered. Ordering Provider: JOSHUA ESTEBAN Report Released Date/Time: March 19, 2023 04:54 PM Reporting Lab: [facility] [address] [address] Performing Lab: [facility] [address] [address] [facility] [place] [facility] CBC AND DIFF (AUTO) ERYTHROCYTE DISTRIBUTIO N WIDTH [RATIO] BY AUTOMATED COUNT 13.9 12.0 - 16.0 09/17 Specimen Type: BLOOD No comment entered. Ordering Provider: JOSHUA ESTEBAN Report Released Date/Time: March 19, 2023 04:54 PM Reporting Lab: [facility] [place] [facility] [address] [address] Performing Lab: [facility] [place] [facility] [address] [address] [facility] [place] [facility] CBC AND DIFF (AUTO) MONOCYTES [#/VOLUME] IN BLOOD BY AUTOMATED COUNT 0.96 10*3/u L 0.30 - 1.10 09/17 Specimen Type: BLOOD No comment entered. Ordering Provider: JOSHUA ESTEBAN Report Released Date/Time: March 19, 2023 04:54 PM Reporting Lab: [facility] [place] [facility] [address] [address] Performing Lab: [facility] [place] [facility] [address] [address] [facility] [place] [facility] CBC AND DIFF (AUTO) MCH [ENTITIC MASS] BY AUTOMATED COUNT 26.9 pg 26.2 - 32.6 09/17 Specimen Type: BLOOD No comment entered. Ordering Provider: JOSHUA ESTEBAN Report Released Date/Time: March 19, 2023 04:54 PM Reporting Lab: [facility] [place] [facility] [address] [address] Performing Lab: [facility] [place] [facility] [address] [address] [facility] [place] [facility] CBC AND DIFF (AUTO) NEUTROPHILS /100 LEUKOCYTES IN BLOOD BY AUTOMATED COUNT 76.1 43.7 - 75.8 09/17 H Specimen Type: BLOOD No comment entered. Ordering Provider: JOSHUA ESTEBAN Report Released Date/Time: March 19, 2023 04:54 PM Reporting Lab: [facility] [address] [address] Performing Lab: [facility] [place] [address] [address] [facility] [place] CBC AND DIFF (AUTO) LYMPHOCYTES /100 LEUKOCYTES IN BLOOD BY AUTOMATED COUNT 13.8 14.0 - 42.3 09/17 L Specimen Type: BLOOD No comment entered. Ordering Provider: JOSHUA ESTEBAN Report Released Date/Time: March 19, 2023 04:54 PM Reporting Lab: [facility] [place] [address] [address] Performing Lab: [facility] [place] [address] [address] [facility] [place] [facility] CBC AND DIFF (AUTO) MONOCYTES/1 00 LEUKOCYTES IN BLOOD BY AUTOMATED COUNT 8.2 5.1 - 13.7 09/17 Specimen Type: BLOOD No comment entered. Ordering Provider: JOSHUA ESTEBAN Report Released Date/Time: March 19, 2023 04:54 PM Reporting Lab: [facility] [place] [address] [address] Performing Lab: [facility] [facility] [address] [address] [facility] [place] [facility] CBC AND DIFF (AUTO) EOSINOPHILS /100 LEUKOCYTES IN BLOOD BY AUTOMATED COUNT 1.1 0.4 - 6.8 09/17 Specimen Type: BLOOD No comment entered. Ordering Provider: JOSHUA ESTEBAN Report Released Date/Time: March 19, 2023 04:54 PM Reporting Lab: [facility] [place] [address] [address] Performing Lab: [facility] [place] [address] [address] [facility] [place] CBC AND DIFF (AUTO) BASOPHILS/1 00 LEUKOCYTES IN BLOOD BY AUTOMATED COUNT 0.5 0.1 - 2.0 09/17 Specimen Type: BLOOD No comment entered. Ordering Provider: JOSHUA ESTEBAN Report Released Date/Time: March 19, 2023 04:54 PM Reporting Lab: [place] [facility] [facility] [address] [address] Performing Lab: [facility] [place] [facility] [address] [address] [facility] [place] [facility] CBC AND DIFF (AUTO) NEUTROPHILS [#/VOLUME] IN BLOOD BY AUTOMATED COUNT 8.91 10*3/u L 2.20 - 7.60 09/17 H Specimen Type: BLOOD No comment entered. Ordering Provider: JOSHUA ESTEBAN Report Released Date/Time: March 19, 2023 04:54 PM Reporting Lab: [facility] [place] [facility] [address] [facility] [address] Performing Lab: [facility] [place] [facility] [address] [address] [facility] [place] [facility] CBC AND DIFF (AUTO) LYMPHOCYTES [#/VOLUME] IN BLOOD BY AUTOMATED COUNT 1.62 10*3/u L 1.00 - 3.20 09/17 Specimen Type: BLOOD No comment entered. Ordering Provider: JOSHUA ESTEBAN Report Released Date/Time: March 19, 2023 04:54 PM Reporting Lab: [facility] [place] [facility] [address] [facility] [address] Performing Lab: [place] [facility] [place] [address] [address] [facility] [place] [facility] CBC AND DIFF (AUTO) EOSINOPHILS [#/VOLUME] IN BLOOD BY AUTOMATED COUNT 0.13 10*3/u L 0.03 - 0.44 09/17 Specimen Type: BLOOD No comment entered. Ordering Provider: JOSHUA ESTEBAN Report Released Date/Time: March 19, 2023 04:54 PM Reporting Lab: [facility] [place] [facility] [address] [address] Performing Lab: [place] [facility] [place] [facility] [address] [address] [place] [facility] [place] [facility] CBC AND DIFF (AUTO) BASOPHILS [#/VOLUME] IN BLOOD BY AUTOMATED COUNT 0.06 10*3/u L 0.01 - 0.13 09/17 Specimen Type: BLOOD No comment entered. Ordering Provider: JOSHUA ESTEBAN Report Released Date/Time: March 19, 2023 04:54 PM Reporting Lab: [place] [facility] [place] [facility] [address] [address] Performing Lab: [place] [facility] [place] [address] [address] [facility] [place] [facility] CBC AND DIFF (AUTO) IMMATURE GRANULOCYTE S/100 LEUKOCYTES IN BLOOD BY AUTOMATED COUNT 0.3 0.0 - 0.7 09/17 Specimen Type: BLOOD No comment entered. Ordering Provider: JOSHUA ESTEBAN Report Released Date/Time: March 19, 2023 04:54 PM Reporting Lab: [facility] [place] [facility] [address] [address] Performing Lab: [place] [facility] [address] [address] [facility] [place] [facility] CBC AND DIFF (AUTO) IMMATURE GRANULOCYTE S [#/VOLUME] IN BLOOD 0.04 10*3/u L 0.00 - 0.06 09/17 Specimen Type: BLOOD No comment entered. Ordering Provider: JOSHUA ESTEBAN Report Released Date/Time: March 19, 2023 04:54 PM Reporting Lab: [place] [facility] [place] [facility] [address] [address] Performing Lab: [place] [facility] [address] [address] [facility] [place] [facility] HEMOGLOBI N A1C PANEL HEMOGLOBIN A1C/HEMOGLO BIN.TOTAL [...] March 19, 2023 04:54 PM Reporting Lab: [facility] [address] [address] Performing Lab: [address] [address] [facility] LIPID PANEL FASTING CHOLESTEROL [MASS/VOLUM E] IN SERUM OR PLASMA 168 mg/dL 09/17 Specimen Type: SERUM No comment entered. Ordering Provider: JOSHUA ESTEBAN Report Released Date/Time: March 19, 2023 04:54 PM Reporting Lab: [facility] [address] [address] Performing Lab: [facility] [address] [address] [facility] LIPID PANEL FASTING TRIGLYCERID E [MASS/VOLUM E] IN SERUM OR PLASMA 185 mg/dL 0 - 150 09/17 H Specimen Type: SERUM No comment entered. Ordering Provider: JOSHUA ESTEBAN Report Released Date/Time: March 19, 2023 04:54 PM Reporting Lab: [facility] [address] [address] Performing Lab: [address] [address] [facility] LIPID PANEL FASTING CHOLESTEROL IN LDL [MASS/VOLUM E] IN SERUM OR PLASMA BY CALCULATION 91 mg/dL 0 - 129 09/17 Specimen Type: SERUM No comment entered. Ordering Provider: JOSHUA ESTEBAN Report Released Date/Time: March 19, 2023 04:54 PM Reporting Lab: [facility] [place] [facility] [address] [address] Performing Lab: [facility]N [facility] [address] [address] [facility] LIPID PANEL FASTING CHOLESTEROL .TOTAL/CHOL ESTEROL IN HDL [MASS RATIO] IN SERUM OR PLASMA 4.2 09/17 Specimen Type: SERUM No comment entered. Ordering Provider: JOSHUA ESTEBAN Report Released Date/Time: March 19, 2023 04:54 PM Reporting Lab: [facility]PITALRWIREGR[facility]ENTERTRN [facility]USETS [facility] [address] [id number] Performing Lab: [facility]ITALRL [facility]N [facility]ITALUSE[address] [address] [facility]ITALUSE [facility] LIPID PANEL FASTING CHOLESTEROL IN HDL [MASS/VOLUM E] IN SERUM OR PLASMA 40 mg/dL 40 - 60 09/17 Specimen Type: SERUM No comment entered. Ordering Provider: JOSHUA ESTEBAN Report Released Date/Time: March 19, 2023 04:54 PM Reporting Lab: [facility]N [facility] [address] [address] Performing Lab: [facility] W[facility]N [facility] [address] [address] [facility] LIVER FUNCTION PROTEIN [MASS/VOLUM E] IN SERUM OR PLASMA 7.5 g/dL 6.0 - 8.3 09/17 Specimen Type: SERUM No comment entered. Ordering Provider: JOSHUA ESTEBAN Report Released Date/Time: March 19, 2023 04:54 PM Reporting Lab: [facility] [place] [place] [facility] [address] [address] Performing Lab: [facility]ITALUSETS [address] [address] [facility] LIVER FUNCTION ALBUMIN [MASS/VOLUM E] IN SERUM OR PLASMA 4.3 g/dL 3.5 - 5.0 09/17 Specimen Type: SERUM No comment entered. Ordering Provider: JOSHUA ESTEBAN Report Released Date/Time: March 19, 2023 04:54 PM Reporting Lab: [facility] [place] [facility] [address] [address] Performing Lab: [facility] [place] [facility] [address] [address] [facility] [facility] LIVER FUNCTION ALKALINE PHOSPHATASE [ENZYMATIC ACTIVITY/VO LUME] IN SERUM OR PLASMA 49 U/L 40 - 150 09/17 Specimen Type: SERUM No comment entered. Ordering Provider: JOSHUA ESTEBAN Report Released Date/Time: March 19, 2023 04:54 PM Reporting Lab: [facility] [place] [facility] [address] [address] Performing Lab: [facility] [place] [facility] [address] [address] [place] [facility] [facility] [facility] LIVER FUNCTION ASPARTATE AMINOTRANSF ERASE [ENZYMATIC ACTIVITY/VO LUME] IN SERUM OR PLASMA 19 U/L 5 - 34 09/17 Specimen Type: SERUM No comment entered. Ordering Provider: JOSHUA ESTEBAN Report Released Date/Time: March 19, 2023 04:54 PM Reporting Lab: [facility] [place] [facility] [address] [address] Performing Lab: [facility] [place] [facility] [address] [address] [facility] [facility] LIVER FUNCTION ALANINE AMINOTRANSF ERASE [ENZYMATIC ACTIVITY/VO LUME] IN SERUM OR PLASMA 30 U/L 09/17 Specimen Type: SERUM No comment entered. Ordering Provider: JOSHUA ESTEBAN Report Released Date/Time: March 19, 2023 04:54 PM Reporting Lab: [facility] [place] [facility] [address] [address] Performing Lab: [facility] [place] [facility] [address] [address] [facility] [place] [facility] LIVER FUNCTION BILIRUBIN.T OTAL [MASS/VOLUM E] IN SERUM OR PLASMA 0.8 mg/dL 0.2 - 1.2 09/17 Specimen Type: SERUM No comment entered. Ordering Provider: JOSHUA ESTEBAN Report Released Date/Time: March 19, 2023 04:54 PM Reporting Lab: [facility]ITALRWIREGR[facility] CENTERTRN [facility] [address] [address] Performing Lab: [facility]ITALRWIREGRASS [facility] CENTERTRN [place] [facility] [address] [address] [facility] TSH THYROTROPIN [UNITS/VOLU ME] IN SERUM OR PLASMA 2.26 u[IU]/ mL 0.35 - 5.00 09/17 Specimen Type: SERUM No comment entered. Ordering Provider: JOSHUA ESTEBAN Report Released Date/Time: March 19, 2023 04:54 PM Reporting Lab: [facility]ITALRE[facility]ERN [facility]ITALUSED[facility] [address] [address] Performing Lab: [facility]ITALRE[facility]ERN [facility]ITALUSED[facility] [address] [address] [facility]ITAL[facility] Encounters Combined list of: 1) Encounters from Department of [facility] Affairs facilities going back up to thelast 18 months. 2) Encounters from the Department of Defense facilities going back up to 280 months. Location Location Details Encounter Type Encounter Number Reason For Visit Attending Provider ADM Date DC Date Status Disposition Source [place] Hearing [facility]) OUTPATIENT [id number] Notes Entered by: CHERIE GONZALES 28 Jul 2013 1407 ------- ------- ------- ------- -- Hearing test CHERIE GONZALES 07/28 Released w/o Limitations [place] ) [place] [place] OUTPATIENT [id number] SHUBHAM MAK 07/29 Released w/o Limitations [place] [facility] [id number] Notes Entered by: Christina MCKEON 30 Jul 2013 1007 ------- ------- ------- ------- -- IMM LEANDRO ROBERT T 07/30 Released w/o Limitations [place] ) [place]) OUTPATIENT [id number] Notes Entered by: MADELINE MEDELLIN 24 Aug 2013 0701 ------- ------- ------- ------- -- ORTHO- HAND MILLY DIAZ 08/24 Released with Work/Duty Limitations [place] [facility] [facility]) OUTPATIENT [id number] Notes Entered by: RODRIGUE NOBLES 13 Sep 2013 0826 ------- ------- ------- ------- -- IMM-ZAKIA SNYDER 09/13 [place]ased w/o Limitations [place] [facility]) [place] [facility]) OUTPATIENT [id number] Notes Entered by: RODRIGUE NOBLES 01 Oct 2013 0702 ------- ------- ------- ------- -- DERM ZAKIA Bella 10/01 Released w/o Limitations [place] [facility] [address]) OUTPATIENT [id number] Notes Entered by: AMANDA HUGHES 30 Dec 2018 0843 ------- ------- ------- ------- -- TENNILLE/ ALEC GARCIA 12/30 [place]ased w/o Limitations [facility] [address]) Theater Facility OUTPATIENT [id number] Theater Provider 05/08 Released w/o Limitations [facility] OUTPATIENT [id number] Theater Provider 05/09 Released w/o Limitations [facility] OUTPATIENT [id number] Theater Provider 05/12 Released w/o Limitations [facility] OUTPATIENT [id number] Theater Provider 05/23 Released w/o Limitations [facility] OUTPATIENT [id number] Theater Provider 05/24 Released w/o Limitations [facility] OUTPATIENT [id number] Theater Provider 06/28 Released w/o Limitations [facility] OUTPATIENT [id number] Theater Provider 07/03 Released with Work/Duty Limitations [facility] OUTPATIENT [id number] Theater Provider 07/08 Released w/o Limitations Theater [facility] OUTPATIENT [id number] 2 Theater Provider 07/09 Released w/o Limitations Theater [facility] OUTPATIENT [id number] Theater Provider 07/29 Released w/o Limitations Theater [facility] OUTPATIENT [id number] 7 Theater Provider 08/07 Released w/o Limitations [facility] OUTPATIENT [id number] Theater Provider 08/15 Released w/o Limitations Theater [facility] OUTPATIENT [id number] 3 Theater Provider 08/28 Released w/o Limitations [facility] OUTPATIENT [id number] 8 Theater Provider 08/28 Released with Work/Duty Limitations Theater [facility] OUTPATIENT [id number] 2 Theater Provider 09/01 Released w/o Limitations [facility] OUTPATIENT [id number] 1 Theater Provider 09/10 Released w/o Limitations [facility] OUTPATIENT [id number] 5 Theater Provider 09/15 Sick at Home/Quarter s Theater Facilit y Theater Facility OUTPATIENT [id number] 3 Theater Provider 09/16 Sick at Home/Quarter s [facility] Theater [facility] OUTPATIENT [id number] 5 Theater Provider 09/17 Sick at Home/Quarter s Theater [facility] Theater Facility OUTPATIENT [id number] 4 Theater Provider 10/09 Released w/o Limitations Theater Facilit [facility] [address]) OUTPATIENT [id number] Notes Entered by: SARAI MARQUEZ 25 Nov 2019 1127 ------- ------- ------- ------- -- ELMER SOARES 11/25 Released w/o Limitations [facility] [address]) [facility] Hearing Conservat ion) OUTPATIENT [id number] Notes Entered by: CAM HU I 25 Nov 2019 1240 ------- ------- ------- ------- -- POST JADE HO I 11/25 Released w/o Limitations [facility] Hearing Conserv ation[place] [facility] Physical Exam Clinic) OUTPATIENT [id number] Notes Entered by: ASAD STEEL 25 Nov 2019 1305 ------- ------- ------- ------- -- HERMAN 638 SELENA REDDY 11/25 Released w/o Limitations [facility] Physica l Exam Clinic) [facility] [place] [facility] OFFICE O/P EST LOW 20-29 MIN [id number] Diagnos is: ICD-10- CM M54.59 Other low back pain
GAUNYA,CHR ISTOPHER M 06/23 [facility] En[facility] [id number] 06/24 [facility] [place] [facility] POS AIRWAY PRESSURE CPAP [id number] Diagnos is: ICD-10- CM G47.30 Sleep apnea, unspeci fied
ST AMTYSON,TONIE E P 06/26 [facility] En[facility] [id number] 07/11 [facility] En[facility] [id number] 09/05 [facility] [place] [facility]P EST MOD 30-39 MIN [id number] Diagnos is: ICD-10- CM M54.59 Other low back pain
Zaheer ESTEBAN 09/17 [facility] En[facility] [id number] 09/19 [facility] Encounter [id number] 09/24 [facility] En[facility] [id number] 09/26 [facility] En[facility] [id number] 09/26 [facility] Encounter [id number] 09/26 [facility] En[facility] [id number] 09/30 [facility] Encounter [id number] 10/02 [facility] [place] [facility] [facility] [place] Outpatient Encounter [id number] 10/06 [facility] OFFICE O/P EST HI 40-54 MIN [id number] Diagnos is: ICD-10- CM F43.12 Post-tr aumatic stress disorde r, chronic
ST TYRA GABRIEL G 10/13 [facility] [facility] Outpatient Encounter [id number] 11/03 [facility] [place] [facility] En[facility] [id number] 12/18 [facility] Outpatient Encounter [id number] Diagnos is: ICD-10- CM F43.12 Post-tr aumatic stress disorde r, chronic
ST TYRA GABRIEL G 12/18 [facility] En[facility] [id number] 12/22 [facility] [place] [facility] Encounter [id number] 02/11 [facility] Encounter [id number] 02/19 [facility] [place] [facility] [place] [facility] OFFICE O/P NEW LOW 30 MIN [id number] Diagnos is: ICD-10- CM G47.33 Obstruc tive sleep apnea (adult) (pediat sarah)
PRISCA KEYES 02/22 [facility] En[facility] [id number] 02/22 [facility] En[facility] [id number] 03/26 [facility] [place] [facility] En[facility] [id number] 03/29 [place] OFFICE O/P EST HI 40 MIN [id number] Diagnos is: ICD-10- CM F43.12 Post-tr aumatic stress disorde r, chronic
HARVEY TYRA G 04/01 [facility] [place] [facility] En[facility] [id number] 04/23 [facility] ORAL DEVICE/RODDY LIANCE CUSFAB [id number] Diagnos is: ICD-10- CM G47.33 Obstruc tive sleep apnea (adult) (pediat sarah)
PRISCA KEYES CTORIA J 04/26 [facility] En[facility] [id number] 06/01 [facility] OFF[facility] O/P EST LOW 20 MIN [id number] Diagnos is: ICD-10- CM G47.33 Obstruc tive sleep apnea (adult) (pediat sarah)
PRISCA KEYES CTORIA J 06/02 [facility] En[facility] [id number] 07/12 [facility] OFF[facility] O/P EST LOW 20 MIN [id number] Diagnos is: ICD-10- CM G47.33 Obstruc tive sleep apnea (adult) (pediat sarah)
ANNADITI CERON, CTORIA J 07/13 [facility] [place] [facility] OFFICE O/P EST LOW 20 MIN [id number] Diagnos is: ICD-10- CM G47.33 Obstruc tive sleep apnea (adult) (pediat sarah)
JHOANTALI CERON, CTORIA J 07/14 [facility] [place] [facility] Outpatient Encounter [id number] 07/15 [facility] [place] [facility] Outpatient Encounter [id number]/26 [facility] [place] [facility] OFFICE O/P EST LOW 20 MIN [id number] Diagnos is: ICD-10- CM G47.33 Obstruc tive sleep apnea (adult) (pediat sarah)
ANNADITI CERON, CTORIA J 07/27 [facility] [place] [facility] [place] [facility] Outpatient Encounter [id number] 07/29 [facility] [place] [facility]P EST MOD 30 MIN [id number] 1BY. 12 Diagnos is: ICD-10- CM F43.12 Post-tr aumatic stress disorde r, chronic
ST TYRA GABRIEL 08/05 [place] [facility] En[facility] [id number] 09/21 [facility] Encounter [id number] 09/24 [facility] [place] [facility] Outpatient Encounter [id number] 1.10/06 [facility] [place] [place] [facility] Outpatient Encounter [id number] 1.10/08 [facility] [place] [facility]P EST MOD 30 MIN [id number] Diagnos is: ICD-10- CM F43.12 Post-tr aumatic stress disorde r, chronic
ST TYRA GABRIEL G 10/11 [place] [facility] [place] [facility] COMPREHENS VE ORAL EVALUATION [id number] 1. Diagnos is: ICD-10- CM G47.33 Obstruc tive sleep apnea (adult) (pediat sarah)
PRISCA KEYES CTORIA J 10/11 [facility] [place] [facility] [facility] [place] [facility] Outpatient Encounter [id number] 1.10/26 [facility] [place] [facility] [place] [facility] CASE MGMT-ORAL HEALTH LIT [id number] 1. Diagnos is: ICD-10- CM K03.6 Deposit s [accret ions] on teeth<b r/> JENNIFER,JOHNNA DINORAH K 10/27 [facility] [place] [facility] [facility] [place] [facility] OFFICE O/P EST LOW 20 MIN [id number] Diagnos is: ICD-10- CM G47.33 Obstruc tive sleep apnea (adult) (pediat sarah)
PRISCA KEYES CTORIA J 11/02 [facility] [place] [facility] [place] [facility] Outpatient Encounter [id number] 11/08 [facility] [place] [facility] [place] [facility] Outpatient Encounter [id number] 11/08 [place] [facility] [place] [facility] [place] SYNCH AUDIO-ONLY EST LOW 20 [id number] Diagnos is: ICD-10- CM F43.12 Post-tr aumatic stress disorde r, chronic
ST TYRA GABRIEL G 12/02 [place] [facility] Outpatient Encounter [id number] 12/02 [place] [facility] [place] [facility] [place] [facility] Outpatient Encounter [id number] Sandra DAMIAN 12/09 [place] [facility] [place] [facility] Procedures Combined list of: 1) Procedures from Department of Veterans Affairs facilities going back up to thelast 18 months, not all [place] non-surgical procedures are included; 2) All procedures from the Department of Defense facilities. Procedure Procedure Type Code Date Perfomer Comments Steven e HEPATITIS A AND HEPATITIS B VACCINE (HEPA-HEPB), ADULT DOSAGE, FOR INTRAMUSCULAR USE [facility] ADENOVIRUS VACCINE, TYPE 7, LIVE, FOR ORAL USE [facility] FITTING OF SPECTACLES, EXCEPT FOR APHAKIA; MONOFOCAL [facility] EAR MOLD/INSERT, NOT DISPOSABLE, ANY TYPE [facility] PATIENT EDUCATION, NOT OTHERWISE CLASSIFIED, NON-PHYSICIAN PROVIDER, GROUP, PER SESSION [facility] SCREENING TEST OF VISUAL ACUITY, QUANTITATIVE, BILATERAL [facility] TYPHOID VACCINE, CAPSULAR POLYSACCHARIDE (VICPS), FOR INTRAMUSCULAR USE 019 DoD SCREENING TEST OF VISUAL ACUITY, QUANTITATIVE, BILATERAL 019 [facility] Screening Test Of Visual Acuity, Quantitative, Bilateral Screening Test Of Visual Acuity, Quantitative, Bilateral [address] [facility] Hepatitis A And Hepatitis B (Intramuscular Use) Adult Dosage Hepatitis A And Hepatitis B (Intramuscular Use) Adult Dosage [address] [facility] Immunization Administration By Injection, One Vaccine Immunization Administration By Injection, One Vaccine [address] [facility] Vaccines Adenovirus Type 7 Live, For Oral Use Vaccines Adenovirus Type 7 Live, For Oral Use 67777 ROBERT REEVES A single vaccine dose adminstered orally. [facility] Vaccines Adenovirus Type 4 Live, For Oral Use Vaccines Adenovirus Type 4 Live, For Oral Use 35469 ROBERT REEVES A single vaccine dose adminstered orally. DoD Immunization Admin Intranasal / Oral Each Additional Vaccine Immunization Admin Intranasal / Oral Each Additional Vaccine 21197 ROBERT REEVES Influenza Virus Vaccine Intranasal Live Attenuated Influenza Virus Vaccine Intranasal Live Attenuated 55070 ROBERT REEVES Flumist: Each sprayer contains a single dose of Flumist; approximately one-half of the contents was administered into each nostril. Patient was observed for 15 min with no adverse reactions. DoD Immunization Admin By Intranasal / Oral Route One Vaccine Immunization Admin By Intranasal / Oral Route One Vaccine [address] [facility] Immunization Administration By Injection, Each Additional Vaccine Immunization Administration By Injection, Each Additional Vaccine 14556 ROBERT REEVES DoD Physician Supervised Injection Intramuscular Antibiotic Physician Supervised Injection Intramuscular Antibiotic [address] [facility] Tdap Vaccine Tdap Vaccine 74148 ROBERT REEVES Visit for an IM injection of 0.5mL of Boostrix (Tetanus and Diphtheria Toxoids and Acellular Pertussis). Was given in the Right Deltoid. Patient was observed for 15 min with no adverse reactions. [facility] Meningococcal Polysaccharide Diphtheria Toxoid Conjugate Vaccine ROBERT REEVES Visit for an IM injection of 0.5mL of Meningococcal Vaccine (Menactra). Was given in the Left Deltoid. Patient was observed for 15 min with no adverse reactions. [facility] Vaccines Viral Polio, Inactivated Vaccines Viral Polio, Inactivated 03575 ROBERT REEVES Visit for an IM injection of 0.5mL of IPOL (Poliovirus Vaccine Inactivated). Was given in the Right Deltoid. Patient was observed for 15 min with no adverse reactions. [facility] Hepatitis A And Hepatitis B (Intramuscular Use) Adult Dosage Hepatitis A And Hepatitis B (Intramuscular Use) Adult Dosage 68929 ROBERT REEVES Visit for an IM injection of 1mL of Twinrix (Hepatitis A and B combination). Was given in the Right Deltoid. Patient was observed for 15 min with no adverse reactions. Karl Injection, penicillin g benzathine, 100,000 units ROBERT REEVES Visit for an IM injection of 1.2 million/units per 2 mL of Bicillin L-A (Penicillin G Benxathine injectable suspension). Was given in the Left upper quadrant, left buttock. Patient was observed for 15 min with no adverse reactions. Karl Skin Test Anergy Tuberculin Intradermal Skin Test Anergy Tuberculin Intradermal 51251 ROBERT REEVES Visit for intradermal tuberculin testing of 0.1mL of Mantoux (Tuberculin Purified Protein Derivative). Was given in the Left forearm, volar surface. Patient was observed for 15 min with no adverse reactions. Karl [employer] Fitting Monofocal Except For Aphakia [employer]acles Services Fitting Monofocal Except For Aphakia 31159 AVI ROSAS Determination Of Refractive State Determination Of Refractive State 24959 AVI ROSAS Ophthalmological New Patient Start Comprehensive Care Ophthalmological New Patient Start Comprehensive Care 70152 AVI ROSAS Ear mold/insert, not disposable, any type CHERIE GONZALES Physician Supervised Group Educational Services Physician Supervised Group Educational Services 68390 CHERIE GONZALES Audiometry Group Testing Audiometry Group Testing 16063 CHERIE GONZALES Screening Test Of Visual Acuity, Quantitative, Bilateral Screening Test Of Visual Acuity, Quantitative, Bilateral 75267 ELMER BETANCUR Threshold Audiogram (Pure Tone) Automated Threshold Audiogram (Pure Tone) Automated 0208T RIKKI CORBIN [facility] Patient education, not otherwise cla ified, non-physician provider, group, per se ion RIKKI COBRIN [facility] Social History Combined list of available smoking, tobacco, and other social history from Department of Defense and Veterans Affairs facilities. Social History Type Response Date Comment Sourc e Tobacco smoking status NHIS [facility] of tobacco use VA-TOBACCO NEVER USED 11/26/2021 [facility] D History of tobacco use VA-TOBACCO NEVER USED 04/21/2020 [facility] [place] [place] [facility] This section is an empty social history section. [facility] Plan of Care List of future care activities from Department of Veterans Affairs facilities. Additional future care activities may be listed in the Assessment and Plan section. Date/Time Care Activity Care Activity Detail Facili ty 12/23/2024 AMBULATORY - MEDICINE AMBULATORY - [place]ICI [place] [facility] [place] [facility] 12/23/2024 AMBULATORY - MEDICINE AMBULATORY - MEDICI [place] [facility] [place] [facility] 12/30/2024 AMBULATORY - NONE AMBULATORY - NONE [facility] [place] [facility] 01/20/2025 AMBULAT[facility] - [facility] 04/12/2025 AMBULATORY - MEDICINE AMBULATORY - MEDICI [place] [facility] [place] [facility] 04/26/2025 AMBULATORY - NONE AMBULATORY - NONE [place] [facility] [place] [facility] 12/02/2024 Consult Order [facility] PSYCHOTHERAPY Cons Budget Manager's Choice [place] [facility] [facility] [facility]
--- OUTSIDE RECORDS SUMMARY | 2024-12-22 11:02 | XMS_ITS | Clinical Summary ---
Author Organization [facility] Address [address] [place] [address] Care Team Providers Care Building Maintenance Worker Name Role Phone Unavailable Primary Care Provider [...]
--- OUTSIDE RECORDS SUMMARY | 2024-12-22 11:02 | XMS_ITS | Encounter Summary ---
Author Organization [facility] Address [address] [place] [address] Care Team Providers Care Shower Screen Installer Name Role Phone Unavailable Primary Care Provider Unavailabl e Encounter Details Date Type Department Care Team (Late st Contact Info) Description 08/18/2020 Lab Requisition [facility] Testing [address] [phone] Michele Hwang PA-C [address] [place] [address] Encounter for laboratory testing for COVID-19 virus [...] DETECTED NOT DETECTED 08/20/2020 12:00 AM EDT [facility] Comment: A Not Detected (negative) test result [...] providers and patients using the following websites: https://www.Genetic Technologies.Western Oncolytics/home/Covid-19/HCP/QuestLDTP/ fact-sheet https://www.Sequans Communications/home/Covid-19/Patients/QuestLDTP/ fact-sheet.html This test has been authorized by the FDA under an Emergency Use Authorization (EUA) for use by authorized laboratories. Due to the current public health emergency, [employer] is receiving a high volume of samples [...] about COVID-19 can be found at the [employer] website: www.Nottingham Technology.Western Oncolytics/Covid19. Microbiology Nasopharyngeal swab / Unknown 08/18/2020 3:51 PM EDT 08/18/2020 3:51 PM EDT [facility] - 08/20/2020 12:00 AM EDT Performing Organization Information: ?Site ID: [id number] ?Name: [employer] ?Address: [address] [place] [address],[place] [address] ?Director: JAMIA CANNON MD Performed at [facility] License number [id number] Michele Hwang PA-C MICROBIOLOGY - NERAL ORDERABLES Performing Organization Address City/State/[facility] Co de Phone Number [facility] documented in this encounter Visit Diagnoses Diagnosis Encounter for laboratory testing for COVID-19 virus documented in this encounter
--- OUTSIDE RECORDS SUMMARY | 2024-12-22 11:02 | XMS_ITS | Encounter Summary ---
Author Organization [facility] Address [address] [place] [address] Care Team Providers Care Operations Project Manager Name Role Phone Unavailable Primary Care Provider Unavailabl e Encounter Details Date Type Department Care Team (Late st Contact Info) Description 09/08/2020 Lab Requisition [facility] Lab DOC: Raudel Rodriguez [address] [place] [phone] Michele Hwang PA-C [address] [place] [address] Encounter for laboratory testing for COVID-19 virus [...] DETECTED NOT DETECTED 09/10/2020 5:00 AM EDT [facility] Comment: A Not Detected (negative) test [...] providers and patients using the following websites: https://www.betaworks.Spangle/home/Covid-19/HCP/QuestLDTP/ fact-sheet https://www.betaworks.Spangle/home/Covid-19/Patients/QuestLDTP/ fact-sheet.html This test has been authorized by the FDA under an Emergency Use Authorization (EUA) for use by authorized laboratories. Due to the current public health emergency, [employer] is receiving a high volume of samples [...] about COVID-19 can be found at the [employer] website: www.ioSafe.Spangle/Covid19. Microbiology Nasopharyngeal swab / Unknown 09/08/2020 3:27 PM EDT 09/08/2020 3:27 PM EDT Narrative [facility] - 09/10/2020 5:00 AM EDT Performing Organization Information: ?Site ID: [id number] ?Name: [facility] ?Address: [address] [place] [address],[place] [address] ?Director: JAMIA ACNNON MD Performed at [facility] License number [id number] Michele Hwang PA-C MICROBIOLOGY - NEROK ORDERABLES Performing Organization Address City/State/[facility] Co de Phone Number [facility] documented in this encounter Visit Diagnoses Diagnosis Encounter for laboratory testing for COVID-19 virus documented in this encounter
--- OUTSIDE RECORDS SUMMARY | 2024-12-22 11:02 | XMS_ITS | Encounter Summary ---
Author Organization [facility] Address [address] [place] [address] Care Team Providers Care Prepress Technician Name Role Phone Unavailable Primary Care Provider Unavailabl e Encounter Details Date Type Department Care Team (Late st Contact Info) Description 09/22/2020 Lab Requisition [facility] Testing [address] [phone] Michele Hwang PA-C [address] [place] [address] Encounter for laboratory testing for COVID-19 virus [...] (COVID-19), Qual (09/22/2020 3:25 PM EST) Pathologist [facility] SARS CoV 2 RNA, Qual NOT DETECTED NOT DETECTED 09/24/2020 7:[address] [facility] Comment: A Not Detected (negative) test [...] providers and patients using the following websites: https://www.Resolve Therapeutics.Kinematix/home/Covid-19/HCP/QuestLDTP/ fact-sheet https://www.Sofie Biosciences/home/Covid-19/Patients/QuestLDTP/ fact-sheet.html This test has been authorized by the FDA under an Emergency Use Authorization (EUA) for use by authorized laboratories. Due to the current public health emergency, [facility] is receiving a high volume of samples [...] about COVID-19 can be found at the [employer] website: www.Unspun Consulting Group.Kinematix/Covid19. Microbiology Nasopharyngeal swab / Unknown 09/22/2020 3:25 PM EST 09/22/2020 3:25 PM EST [facility] - 09/24/2020 7:00 PM EST Performing Organization Information: ?Site ID: [id number] ?Name: [employer] ?Address: [address] [place] [address],[facility] [place] [address] ?Director: JAMIA CANNON MD Performed at [facility] License number [id number] Michele Hwang PA-C MICROBIOLOGY - NERAL ORDERABLES Performing Organization Address City/State/[facility] Co de Phone Number [facility] documented in this encounter Visit Diagnoses Diagnosis Encounter for laboratory testing for COVID-19 virus documented in this encounter
--- OUTSIDE RECORDS SUMMARY | 2024-12-22 11:02 | XMS_ITS | Encounter Summary ---
Author Organization [facility] Address [address] [place] [address] Care Team Providers Care Animal Sitter Name Role Phone Unavailable Primary Care Provider Unavailabl e Encounter Details Date Type Department Care Team (Late st Contact Info) Description 06/16/2020 Lab Requisition [facility] Testing [address] [phone] Michele Hwang PA-C [address] [place] [address] Encounter for laboratory testing for COVID-19 virus [...] DETECTED NOT DETECTED 06/17/2020 3:00 PM EDT [facility] Comment: A Not Detected (negative) test result [...] providers and patients using the following websites: https://www.ShopWell.NOZA/home/Covid-19/HCP/QuestLDTP/ fact-sheet https://www.JumpMusic/home/Covid19/Patients/QuestLDTP/ fact-sheet.html This test has been authorized by the FDA under an Emergency Use Authorization (EUA) for use by authorized laboratories. Due to the current public health emergency, [employer] is receiving a high volume of samples [...] about COVID-19 can be found at the [employer] website: www.Zhaogang.NOZA/Covid19. Microbiology Nasopharyngeal swab / Unknown 06/16/2020 1:24 PM EDT 06/16/2020 1:24 PM EDT [facility] - 06/17/2020 3:00 PM EDT Performing Organization Information: ?Site ID: [id number] ?Name: [employer] ?Address: [address] [place] [address],[facility] [place] [address] ?Director: JAMIA CANNON MD Performed at [facility] number [id number] Michele Hwang PA-C MICROBIOLOGY - NERAL ORDERABLES Performing Organization Address City/State/[facility] Co de Phone Number [facility] documented in this encounter Visit Diagnoses Diagnosis Encounter for laboratory testing for COVID-19 virus documented in this encounter
--- OUTSIDE RECORDS SUMMARY | 2024-12-22 11:02 | XMS_ITS | Clinical Summary ---
Author Organization [facility] Address [address] [place] [address] Care Team Providers Care Supervisor Ovens Name Role Phone Rosamaria Sam MD Primary Care Provider [phone] Immunizations Name Administration Dates Next Due Pfizer [...] age to complete this topic Care Teams Supervisor Ovens Relationship Specialty Start Date End Date Rosamaria Sam MD [address] [place] [address] Dr [address] [facility] [place] [address] PCP - General 07/03/24
--- OUTSIDE RECORDS SUMMARY | 2024-12-22 11:02 | XMS_ITS | Encounter Summary ---
Author Organization [facility] Address [address] [place] [address] Care Team Providers Care Paper Coating Supervisor Name Role Phone Unavailable Primary Care Provider Unavailabl e Encounter Details Date Type Department Care Team (Late st Contact Info) Description 07/28/2020 Lab Requisition [facility] Testing [address] [phone] Michele Hwang PA-C [address] [place] [address] Encounter for laboratory testing for COVID-19 virus [...] DETECTED NOT DETECTED 08/01/2020 6:00 PM EDT [facility] Comment: A Not Detected (negative) test [...] providers and patients using the following websites: https://www.Get-n-Post.Mover/home/Covid-19/HCP/QuestLDTP/ fact-sheet https://www.Eleutian Technology/home/Covid-19/Patients/QuestLDTP/ fact-sheet.html This test has been authorized by the FDA under an Emergency Use Authorization (EUA) for use by authorized laboratories. Due to the current public health emergency, [facility] is receiving a high volume of samples [...] about COVID-19 can be found at the [facility] website: www.GeoIQ.Mover/Covid19. Microbiology Nasopharyngeal swab / Unknown 07/28/2020 3:29 PM EDT 07/28/2020 3:29 PM EDT [facility] - 08/01/2020 6:00 PM EDT Performing Organization Information: ?Site ID: [id number] ?Name: [employer] ?Address: [address] [place] [address],[place] [address] ?Director: JAMIA CANNON MD Performed at [facility] License number [id number] Michele Hwang PA-C MICROBIOLOGY - NERAL ORDERABLES Performing Organization Address City/State/[facility] Co de Phone Number [facility] documented in this encounter Visit Diagnoses Diagnosis Encounter for laboratory testing for COVID-19 virus documented in this encounter
[2024-12-28 17:39] LABS: Babesia IgM <1:20 titer (<1:20)
== END 2024-12-22 10:06 | disposition home or self-care (01) ==
LOC: HO.LAB 10:05
PROVIDERS: PCP Internal Medicine; Visit Provider Internal Medicine
DX: G43.119 Migraine with aura, intractable, without status migrainosus (principal)
CPT/HCPCS: 36415; 86753

== ENCOUNTER 2024-12-27 08:03 | Outpatient (AMB) | payer BC, SELFPAY ==
--- OUTSIDE RECORDS SUMMARY | 2024-12-27 08:06 | XMS_ITS | Continuity of Care Document ---
Author Organization [facility] [place] Address [address] [facility] [address] [place] [address] Care Team Providers Care Real Estate Paralegal Name Role Phone CITLALI KENNEY Primary Care Provider CITLALI KENNEY Referring Provider [phone] SAAB KWOK Signal Constructor Assessment Encounter Date Assessment Date Assessment LastModified by Organization Details LastModified Time 12/23/2024 12/23/2024 I reviewed his MRI. There is no significant evidence of a stress fracture or an injury that I can appreciate. He does report ongoing pain, limping, and inability to return to his job. I have offered him a short boot today for immobilization, recommended ice, anti-inflammator ies, and to take his meloxicam that he was prescribed for another problem. He may certainly return to physical therapy as well. He did inquire about injections and we discussed that I have no injection offer for this pathology as his MRI and x-rays are overall normal and he has fairly diffuse pain on his forefoot. He will follow-up in 4 weeks to check the efficacy of these interventions. Patient was prescribed a short cam boot for above diagnosis. The patient is ambulatory but has weakness and/or instability of their Left foot which requires stabilization from this semi-rigid / rigid orthosis to improve their function. Not available 12/26/2024 19:04:32 Plan of Treatment Reminders Order Date Submit Date Provider Last Modified By Organization Details Last Modified Time Details Appointments WC FOLLOW -UP 025 09:00AM Almita Thompson MD Not available Not available Not available Lab None record ed. Referral None record ed. Procedures None record ed. Surgeries None record ed. Imaging None record ed. Medication Orders None record ed. Patient TargetsNo targets recorded. Patient Instructions Encounter Date Encounter Id Patient Instructions Last Modified By Organization Details Last Modified Time 12/23/2024 [id number] Weightbearing x-rays of the left foot and ankle were obtained on 10/28/2024 which is negative for acute fracture. No evidence of periosteal stress reaction. No widening of the Lisfranc complex. [email or web address] Not available 11/25/2024 08:29:38 Reason for Referral None Reported. Results Created Date Observation Date Name Description Value Unit Range Abnormal Flag Note LastModifiedBy Organization Detail LastModifiedTime 12/06/19 25 12/06/2024 MRI, foot, w/o contr ast No observ ation record ed. snarus Not Available 2024 15:29:06 Result Notes None recorded. Problems Name Problem SNOMED Code Status Onset Date Resolution Date Notes Provider Name and Address Organization Details Recorded Time Strain of foot 65504578974 Active 025 Almita Thompson MD [address], [place], [address] , [place] [facility] [place], 10:20:55 Problem Notes None recorded. Medical Equipment None Reported. Medications Name Sig Start Date Stop Date Status Note LastModified by Organization Details LastModified Time doxycycline hyclate 100 mg capsule 12/23 completed Not Available Not Available Not Available azithromyci n 250 mg tablet TAKE 2 TABLETS BY MOUTH TODAY, THEN TAKE 1 TABLET DAILY FOR 4 DAYS DIRECTED 12/23 completed Not Available Not Available Not Available meloxicam 15 mg tablet TAKE 1 TABLET BY MOUTH EVERY DAY FOR 30 DAYS active Not Available Not Available No t Available prednisone 20 mg tablet TAKE 2 TABLETS BY MOUTH ONCE DAILY FOR 5 DAYS 12/23 completed Not Available Not Available Not Available rizatriptan 10 mg tablet PLEASE SEE ATTACHED FOR DETAILED DIRECTION S active Not Available Not Available No t Available acyclovir 400 mg tablet TAKE 1 TABLET BY MOUTH 3 TIMES DAILY FOR 5 DAYS 12/23 completed Not Available Not Available Not Available acetaminoph en 500 mg tablet TAKE 2 TABLETS BY MOUTH EVERY 6 HOURS NEEDED FOR FEVER active Not Available Not Available No t Available oxycodone-a cetaminophe n 5 mg-325 mg tablet TAKE 1 TABLET BY MOUTH EVERY 12 HOURS NEEDED FOR 7 DAYS active Not Available Not Available No t Available amoxicillin 875 mg tablet TAKE 1 TABLET BY MOUTH TWICE A DAY 12/23 completed Not Available Not Available Not Available amitriptyli ne 10 mg tablet TAKE 1 TO 2 TABLETS BY MOUTH EVERY DAY AT BEDTIME active Not Available Not Available No t Available benzonatate 100 mg capsule TAKE 1 CAPSULE BY MOUTH THREE TIMES A DAY NEEDED FOR COUGH 12/23 completed Not Available Not Available Not Available erythromyci n 5 mg/gram (0.5 %) eye ointment 12/23 completed Not Available Not Available Not Available oseltamivir 75 mg capsule TAKE 1 CAPSULE BY MOUTH TWICE A DAY FOR 5 DAYS 12/23 completed Not Available Not Available Not Available sertraline 25 mg tablet active Not Available Not Available Not Available mupirocin 2 % topical ointment APPLY TOPICALLY 2 TIMES A DAY active Not Available Not Available No t Available diclofenac sodium 50 mg tablet,luis antonio yed release 12/23 completed Not Available Not Available Not Available scopolamine 1 mg over 3 days transdermal patch APPLY 1 PATCH DIRECTED EVERY 3 DAYS NEEDED FOR MOTION SICKNESS 12/23 completed Not Available Not Available Not Available albuterol sulfate HFA 90 mcg/actuati on aerosol inhaler INHALE 2 PUFFS EVERY 6 HOURS NEEDED FOR SHORTNESS OF BREATH OR WHEEZING active Not Available Not Available No t Available amoxicillin 875 mg-potassiu m clavulanate 125 mg tablet TAKE 1 TABLET BY MOUTH TWICE A DAY active Not Available Not Available No t Available cyclobenzap rine 5 mg tablet TAKE 1 TABLET BY MOUTH EVERYDAY AT BEDTIME 12/23 completed Not Available Not Available Not Available Ubrelvy 100 mg tablet TAKE 1/2-1 TABLET ONCE NEEDED AT ONSET OF MIGRAINE. MAY REPEAT IN 2 HOURS UP TO MAX 2 TABS/DAY active Not Available Not Available No t Available Wegovy 0.25 mg/0.5 mL subcutaneou s pen injector active Not Available Not Available Not Available Paxlovid 300 mg (150 mg x 2)-100 mg tablets in a dose pack TAKE 2 TABLETS (NIRMATRE LVIR) AND TAKE 1 TABLET (RITONAVI R) BY MOUTH TWICE A DAY FOR 5 DAYS 12/23 completed Not Available Not Available Not Available Vitals Date Recorded Body height Body mass index (BMI) Body weight Provider Name and Address Organization Details Last Updated DateTime 12/23/2024 180.34 cm 39.1 kg/m2 734498.[address] [facility] 12/23/2024 09:50:01 Social History None recorded. Functional Status None recorded. Mental Status None recorded. Family History Nothing Reported. Medical History No medical history recorded. Past Encounters Encounter ID Performer Location Encounter Start Date Encounter Closed Date Diagnosis/Indication Diagnosis SNOMED-CT Code Diagnosis ICD10 Code Diagnosis Note [id number] Almita Thompson MD [facility] [address] [facility] [address] [place] [address] 12/23/2024 09:48:32 12/23/2024 10:25:26 Strain of foot 8378056162 9 S96.912D Health Concerns Section Related Observation LastModified by Organization Detai ls LastModified Time None Recorded Concern Status LastModified by Organization Details LastModified Time None Recorded Payers Encounter Date Sequence Insurance Name Policy Number Policy Gloria Covered Member ID Gloria Member ID Guarantor Name 12/23/2024 VALDOSTA Stardoll [facility] [id number] Other Thuan Nguyen Notes Date Note Type Note Provider Name and Address Organization Details Recorded Time 12/23/2024 text/html Date of injury: 07/03/24 Thuan Nguyen is a 34 year old male who presents today for follow-up evaluation regarding his left foot and ankle. He reports that when the injury occurred, he had instant pain and was immediately limping. He notes that he has not been immobilized at all up to this point. He feels like he is still unable to dissipate in his job. He was given meloxicam by another physician for a different problem recently and is taking this. His pain continues to be aching, shooting, stabbing, sharp and a 6-9 out of 10. It is mild and intermittent and improving. He reports that he previously stopped physical therapy as they recommended that he have an MRI first. From 10/28/24 (TK): For evaluation of his left foot pain. [...] no medical history. 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 He drinks about 4 alcoholic drinks per week. Almita Thompson MD [address], [place], [address], [place] [facility] 12/26/2024 19:04:57
--- OUTSIDE RECORDS SUMMARY | 2024-12-27 08:06 | XMS_ITS | Data Portability ---
Author Organization [facility]ayan S[facility]chez [facility] [place] Address [address] [place] [address] Care Team Providers Care Boarding Specialist Name Role Phone CITLALI KENNEY Primary Care Provider [phone] CITLALI KENNEY Referring Provider [phone] SABA KWOK Wound/Ostomy Nurse Assessment Encounter Date Assessment Date Assessment LastModified [...] MD He/She agrees with history, physical examination, tests/diagnostic imaging, and treatment plan [email or web address] Not available 10/28/2024 09:40:50 12/23/2024 12/23/2024 I reviewed his MRI. There [...] Details Last Modified Time Details Appointments WC FOLLOW-UP 2024 09:00A Sandra Thompson MD Not available Not available Not available Lab None recorded. Referral None recorded. Procedures None recorded. Surgeries None recorded. Imaging XR, ankle, 3 or more view 2023 024 [email or web address] [facility], [address], [place], [address], 10/28/2024 10:36:43 XR, foot, 2 view 2023 024 [email or web address] [facility], [address], [address], [place], [address], 10/28/2024 10:36:43 MRI, foot, w/o contrast - Rule out edema in the fourth and fifth metatarsa ls, rule out occult fracture, work injury 4 months ago, failed conservat vaughn care 2023 024 [facility] Not available 12/06/2024 15:29:06 Medication Orders None recorded. Patient TargetsNo targets recorded. Patient Instructions Encounter Date Encounter Id Patient Instructions Last Modified By Organization Details Last Modified Time 10/28/2024 [id number] Weightbearing x-rays of the left foot and ankle were obtained on 10/28/2024 which is negative for acute fracture. No evidence of periosteal stress reaction. No widening of the Lisfranc complex. [email or web address] Not available 10/28/2024 09:41:08 12/23/2024 [id number] Weightbearing x-rays of the left foot and ankle were obtained on 10/28/2024 which is negative for acute fracture. No evidence of periosteal stress reaction. No widening of the Lisfranc complex. [email or web address] Not available 11/25/2024 08:29:38 Reason for Referral [...] Organization Details Recorded Time Strain of foot 98363215740 Active 025 Almita Thompson MD [address], [place], [address] , [place] [facility] 10:20:55 Problem Notes None recorded. Procedures Surgical History None [...] Updated DateTime 10/28/2024 180.34 cm 39.1 kg/m2 402654.86 g ADAMA STEINBERG PA-C [address], [place], [address], [place] [facility], 10/28/2024 09:28:58 Date Recorded Body height Body mass index (BMI) Body weight Provider Name and Address Organization Details Last Updated DateTime 12/23/2024 180.34 cm 39.1 kg/m2 502692.[address] [facility] 12/23/2024 09:50:01 Social History None recorded. Functional Status None recorded. Mental Status None recorded. Family History Nothing Reported. Medical History No medical history recorded. Past Encounters Encounter ID Performer Location Encounter Start Date Encounter Closed Date Diagnosis/Indication Diagnosis SNOMED-CT Code Diagnosis ICD10 Code Diagnosis Note [id number] Almita Thompson MD [address] [address] 10/28/2024 09:05:04 10/28/2024 09:52:11 Ankle pain 214378916 M25.572 Pain in left foot 040070 8882 51464 M79.672 [id number] Almita Thompson MD [address] [address] 12/23/2024 09:48:32 12/23/2024 10:25:26 Strain of foot 3426564970 9 S96.912D Health Concerns Section Related Observation LastModified by Organization Detai ls LastModified Time None Recorded Concern Status LastModified by Organization Details LastModified Time None Recorded Advance Directives Directive None Recorded Payers Encounter Date Sequence Insurance Name Policy Number Policy Gloria Covered Member ID Gloria Member ID Guarantor Name 10/28/2024 BARBA Sayduck [id number] Francisca Nguyen 12/23/2024 [employer] [id number] Francisca Nguyen Notes Date Note Type Note Provider [...] no medical history. 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 He drinks about 4 alcoholic drinks per week. ADAMA STEINBERG PA-C [address], [place], [address], [place] [facility] 10/28/2024 09:42:03 12/23/2024 text/html Date of injury: 07/03/24 Thuan [...] no medical history. 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 He drinks about 4 alcoholic drinks per week. Almita Thompson MD [address], [place], [address], [place] [facility] 12/26/2024 19:04:57
--- OUTSIDE RECORDS SUMMARY | 2024-12-27 08:06 | XMS_ITS | Encounter Summary ---
Author Name [facility] [place] [facility] [place] Address [address] [place] [address] Support Name Relationship Address Phone TIFFANY LEIGHTON Next of Kin [address] [place] [address] LEIGHTON ALLEN Emergency Contact [address] [place] [address] Care Team Providers Care Lab Clerk Name Role Phone CORINNA SEVILLA Primary Care [...] [facility] DEPT OF COR Aug 17, 2020 [id number] [phone] ALLEN,CAR LOS PATIENT [place] ([place]UE CARD) PREFERRED PROVIDER ORGANIZAT ION (PPO) [facility] OF [facility] DEPT OF COR Aug 17, 2020 [id number] ALLEN,CAR LOS PATIENT [facility]EM[facility] PRESCRIPT ION [facility] Aug 17, 2020 [id number] ALLEN,CAR LOS PATIENT [facility] PRESCRIPT ION [facility] Aug 17, 2020 [id number] ALLEN,CAR LOS PATIENT Selected Encounter This section includes the information on record at [place] for the Encounter. Date/Time Encounter Type Encounter Description Reason Provider Source Dec 23, 2024 09:00 AM TELEHEALTH FACILITY FEE SLEEP STUDY ICD-10-CM G47.30 Sleep apnea, unspecified PEDRO MAGALLON Katie Encounter Template Text not used by [facility] Assessments - Encounter Diagnoses This section includes the primary and secondary diagnoses documented for the Encounter. Date/Time Primary/Secondary Diagnosis Diagnosis Name Provider Source Dec 27, 2024 02:29 AM PRIMARY Sleep apnea, unspecified SHANTALHAOSUDHIR WilsonMAURICIOJAE ALEXUS [facility] Plan of Treatment: Future Appointments (+ 6 months) and Future Tests (+/- 45 days) The Plan of Treatment section includes future care activities for the patient from all [place] [facility]. This section includes future appointments and future orders which are active, pending or scheduled. Future Appointments This section includes appointments that were scheduled to occur 6 months from the date of the Encounter, up to a maximum of 20 appointments. The data comes from all [place] treatment facilities. Appointment Date/Time Appointment Type Appointme nt Facility Name Dec 30, 2024 10:30 AM [facility] Jan 20, 2025 08:30 AM AMBULATORY - PSYCHIATRY [facility] April 12, 2025 09:30 AM AMBULATORY - MEDICINE [facility] Apr 26, 2025 03:00 PM [facility] Active, Pending, and Scheduled Orders This [...] data comes from all [place] treatment facilities. Test Date/Time Test Type Test Details Facility Name Dec 02, 2024 09:37 AM Consult Order PENDING SALE TO [facility]- PSYCHOTHERAPY Cons Skills Instructor's Choice [facility] Social History: Smoking Status (Most current) and Tobacco Use (All prior to encounter date) This section includes the most current, and the historical, smoking and tobacco- related health factors from the VA facility where the Encounter took place. Current Smoking Status This section includes the most current smoking, or tobacco-related health factor, from the VA facility where the Encounter took place. Date/Time Current Smoking Status Comment Mayra olivarez Nov 20, 2022 01:00 PM VA-TOBACCO NEVER USED [facility] Tobacco Use History This section includes a history of the smoking, or tobacco-related health factors, that were collected on or before the date of the Encounter. The data comes from the [place] facility where the Encounter took place. Date/Time Smoking Status/Tobacco Use Comment F acreji Nov 26, 2021 11:30 AM [place]-TOBACCO NEVER USED [facility] Encounter Notes: All associated encounter notes This section contains the clinical notes associated to the Encounter. Date/Time Encounter Note(s) Provider Source Dec 23, 2024 10:00 AM TELEHEALTH NOTE: LOCAL TITLE: TELEHEALTH NOTE STANDARD TITLE: TELEHEALTH NOTE DATE OF NOTE: DEC 23, 2024@10:00 ENTRY DATE: DEC 27, 2024@02:18 AUTHOR: IKER MAGALLON EXP COSIGNER: URGENCY: STATUS: COMPLETED DENISSE ALLEN [facility]. identified with 2 identifiers: [X] Full Name [ ] Date of [X] Full SSN [ ] VA ID Card Patient consented to participate in the scheduled Clinical Video Telehealth (CVT) appointment: Yes. Appointment Date/Time: Dec@09:00 KHARI MCMANUS MASTER OCEAN Conducted this ppointment/session from [facility]) via Clinical Video Telehealth. DX per Telehealth Provider: G47.30 Additional Information: NONE AT THIS TIME. /mercedes/ IKER MAGALLON TELEHEALTH CLINICAL TECHNIAN (TCT) Signed: 12/27/2024 02:29 IKER MAGALLON
--- OUTSIDE RECORDS SUMMARY | 2024-12-27 08:07 | XMS_ITS | Data Portability ---
Author Organization [facility]OHREH Perez s, [address] Address [address] [place] [address] Care Team Providers Care Produce Field Merchandiser Name Role Phone [facility] Primary Care Provider Assessment No assessment recorded. Plan of Treatment Reminders Order Date Submit Date Provider Last Modified By Organization Details Last Modified Time Details Appointments None recorded. Lab culture, respiratory 2022 023 [place] [facility], [address] [place] [address], [place], [address], 3 16:06:43 rapid flu (A+B) 2022 023 [place] [address] 20[address], [address] [place] [address], [phone], 3 16:46:11 rapid SARS CoV 2 Ag, QL IA, respiratory specimen 2022 023 [place] [address] _[facility], [address] [place] [address], [phone], 3 16:46:11 rapid strep group A, throat 2022 023 [place] [address] 20[address], [address] [place] [address], [phone], 3 16:46:10 Referral None recorded. Procedures None recorded. Surgeries None recorded. Imaging None recorded. Medication Orders penicillin V potassium 500 mg tablet 2022 023 [id number], [address], [place], [address], 16:46:13 Patient TargetsNo targets recorded. Patient Instructions Encounter Date Encounter Id Patient Instructions Last Modified By Organization Details Last Modified Time 11/24/2022 [id number] sore throat: car e instructions [email or web address] Not available 11/24/2022 16:46:27 cough: care instructions [email or web address] Not available 11/24/2022 16:46:11 headache: care instructions [email or web address] Not available 11/24/2022 16:46:11 Reason for Referral None Reported. Results Created Date Observation Date Name Description Value Unit Range Abnormal Flag Note LastModifiedBy Organization Detail LastModifiedTime 11/24/1911/27/2022 UPPER RESPI RATOR Y CULTU RE upper respiratory culture FINAL REPORT Not Available [facility] ([facility]) [address] [facility] [place], [place], [address], 11/27/2022 10:06:50 11/24/19 23 11/27/2022 UPPER RESPI RATOR Y CULTU RE result 1 COMMEN T Routi ne respi rator y annamaria Not Available [facility] ([facility]) [address] [facility] [place], [place], [address], 11/27/2022 10:06:50 11/24/19 23 11/25/2022 PLEAS E NOTE please note Commen t The date and/o r time of colle ction was not indic ated on the requi sitio n as requi red by state and andres al law. The date of recei pt of the speci men was used as the colle ction date if not suppl ied. Not Available [facility] ([facility]) [address] [facility] [place], [place], [address], 11/26/2022 16:06:44 11/24/19 23 11/24/2022 rapid SARS CoV 2 Ag, QL IA, respi rator y speci men Unknown Analyte Normal =Negat vaughn Not Available [address] [place] [address], [place], [address], 11/24/2022 16:14:55 11/24/19 23 11/24/2022 rapid SARS CoV 2 Ag, QL IA, respi rator y speci men Unknown Analyte negati ve Not Available [address] [place] [address], [place], [address], 11/24/2022 16:14:55 11/24/19 23 11/24/2022 rapid flu (A+B) Unknown Analyte Normal = Negati ve Not Available [address] [place] [address], [place], [address], 11/24/2022 16:14:48 11/24/19 23 11/24/2022 rapid flu (A+B) Unknown Analyte negati ve Not Available [address] [place] [address], [place], [address], 11/24/2022 16:14:48 11/24/19 23 11/24/2022 rapid flu (A+B) Unknown Analyte Normal = Negati ve Not Available [address] [place] [address], [place], [address], 11/24/2022 16:14:48 11/24/19 23 11/24/2022 rapid flu (A+B) Unknown Analyte negati ve Not Available [address] [place] [address], [place], [address], 11/24/2022 16:14:48 11/24/19 23 11/24/2022 rapid strep group A, throa t Unknown Analyte Normal = Negati ve Not Available [address] [place] [address], [place], [address], 11/24/2022 16:15:00 11/24/19 23 11/24/2022 rapid strep group A, throa t Unknown Analyte negati ve Not Available [address] [place] [address], [place], [address], 11/24/2022 16:15:00 Result Notes None recorded. Problems Name Problem SNOMED Code Status Onset Date Resolution Date Notes Provider Name and Address Organization Details Recorded Time Gastroesophage al reflux disease 182569097 Active 2022 KENNEY montoya PA - [facility] 3 16:12:05 Migraine 75701706 Active 2022 KENNEY montoya PA - [facility] 3 16:12:17 Chronic back pain 979268075 Active 2022 [facility] - [facility] [...] Updated DateTime 3 180.34 cm 37.1 kg/m2 621301. 57 g 97.2 [degF] 18 /min 78 /min 98 % 98 % 142 mm[Hg] 79 mm[Hg] KENNEY ANGULO [facility] 16:14:38 Social History Question Answer Notes LastModified by WineMeNowizat ion Details LastModified Time Tobacco Smoking Status Never Smoker KENNEY montoya PA [facility] 11/24/2022 16:12:54 What Is Your Level [...] split virus, quadrivalent, PF 10/28/2022 completed KENNEY montoya, PA - [facility] 11/24/2022 16:10:17 Influenza, MDCK, quadrivalent, PF 2021 completed KENNEY ANGULO null, PA - [facility] 11/24/2022 16:10:17 Tdap 09/17/2013 completed KENNEY ANGULO null, PA - [facility] 11/24/2022 16:10:17 COVID-19, mRNA, LNP-S, PF, 30 mcg/0.3 mL dose 08/16/2021 completed KENNEY ANGULO null, PA - [facility] 11/24/2022 16:10:17 COVID-19, mRNA, LNP-S, PF, 30 mcg/0.3 mL dose 07/26/2021 completed KENNEY montoya, PA - [facility] 11/24/2022 16:10:17 Influenza, MDCK, quadrivalent, PF 01/05/2021 completed KENNEY montoya, PA - [facility] 11/24/2022 16:10:17 Past Encounters Encounter ID Performer Location Encounter Start Date Encounter Closed Date Diagnosis/Indication Diagnosis SNOMED-CT Code Diagnosis ICD10 Code Diagnosis Note [id number] [address] [address] [address] 05/01/2022 17:21:49 05/01/2022 17:50:42 [id number] [address] [address] 05/03/2020 09:55:42 05/03/2020 11:30:41 [id number] ZOHREH MONTIEL [facility] [address] [place] [address] 11/24/2022 15:59:16 11/24/2022 16:57:03 Acute upper respiratory infection 17449064 J06.9 Sore throat 302051611 J0 2.9 Known strep exposure. Rapid strep [...] Member ID Guarantor Name 11/24/2022 [facility] Thuan Nguyen [id number] Thuan Nguyen Notes Date Note Type Note [...] paediatricians office as well. BLAYNE Wilcox, ZOHREH [address] [place], [place] [address], [address], [place] - [facility] 11/24/2022 16:48:47
--- OUTSIDE RECORDS SUMMARY | 2024-12-27 08:08 | XMS_ITS | Encounter Summary ---
Author Organization [facility] Address [address] [place] [address] Care Team Providers Care Bonding Agent Name Role Phone Unavailable Primary Care Provider Unavailabl e Encounter Details Date Type Department Care Team (Late st Contact Info) Description 12/24/2024 Orders Only [facility] Urologic Surgery [place] [address] [place] [address] Nena Ortiz MD [address] [place] [address] Social History Tobacco Use Types Packs/Day Years Used Date Smoking Tobacco: Never Assessed Sex and Gender Information Value Date Recorded Sex Assigned at Not on file Gender Identity Not on file Sexual Orientation Not on file documented as of this encounter Plan of Treatment Not on file documented as of this encounter Procedures Procedure Name Priority Date/Time Associated Diagnosis Comments URINALYSIS, COMPLETE W/ REFLEX TO CULTURE Routine 11/19/2024 4:56 PM EST CYTOLOGY, URINE Routine 11/18/2024 4:58 PM EST LAB RESULT Routine 11/12/2024 4:55 PM EST documented in this encounter Results * Urinalysis, Complete w/ Reflex to Culture (11/19/2024 4:56 PM EST) Nena Ortiz MD URINE ORDERABLES * Cytology, urine (11/18/2024 4:58 PM EST) Urine Nena Ortiz MD PATHOLOGY/CYTOLOGY O RDERABLES * LAB RESULT (11/12/2024 4:55 PM EST) Nena Ortiz MD HX AMB PROCEDURES documented in this encounter Visit Diagnoses Not on filedocumented in this encounter
--- OUTSIDE RECORDS SUMMARY | 2024-12-27 08:08 | XMS_ITS | Clinical Summary ---
Author Organization [facility] it Address [address] [place] [address] Care Team Providers Care Projection Engineer Name Role Phone Rosamaria Sam MD Primary Care Provider [phone] Immunizations Name Administration Dates Next Due Pfizer SARS-CoV-2 COVID-19, mRNA, LNP-S, preservative free 08/16/2021,07/26/2021 Social History Tobacco Use Types Packs/Day Years Used Date Smoking Tobacco: Never Assessed Sex and Gender Information Value Date Recorded Sex Assigned at Not on file Legal Sex Male 3:58 AM EST Gender Identity Not on file Sexual Orientation Not on file Obstetrics History Plan of Treatment Health Maintenance Due Date Last Done Comments Hepatitis B Vaccines (1 of 3 - 19+ 3-dose series) 2009 DTaP,Tdap,and Td Vaccines (2 - Td or Tdap) 10/15/2013 09/17/2013 Cholesterol Screening (Lipid Panel) 10/20/2022 Depression Screening 10/20/2022 HIV Screening 10/20/2022 Hepatitis C Screening 10/20/2022 Social Influencers of Health Screening 10/20/2022 COVID-19 Vaccine (3 - 2023-2 5 season) 2024 08/16/2021, 07/26/2021 Influenza Vaccine [...] patient's age to complete this topic Meningococcal B Vacine Aged Out No lo nger eligible based on patient's age to complete [...] age to complete this topic Care Teams Projection Engineer Relationship Specialty Start Date End Date Rosamaria Sam MD [address] [place] [address] Dr [address] [facility] [place] [address] PCP - General 07/03/24
--- OUTSIDE RECORDS SUMMARY | 2024-12-27 08:08 | XMS_ITS | Encounter Summary ---
Author Organization [facility] Address [address] [place] [address] Care Team Providers Care Buck Swamper Name Role Phone Unavailable Primary Care Provider Unavailabl e Encounter Details Date Type Department Care Team (Late st Contact Info) Description 09/22/2020 Lab Requisition [facility] Testing [address] [phone] Michele Hwang PA-C [address] [place] [address] Encounter for laboratory testing for COVID-19 virus [...] (COVID-19), Qual (09/22/2020 3:25 PM EST) Pathologist [facility] SARS CoV 2 RNA, Qual NOT DETECTED NOT DETECTED 09/24/2020 7:00 PM EST [facility] Comment: A Not Detected (negative) [...] providers and patients using the following websites: https://www.Agralogics.Silicon Genesis/home/Covid-19/HCP/QuestLDTP/ fact-sheet https://www.fivesquids.co.uk/home/Covid-19/Patients/QuestLDTP/ fact-sheet.html This test has been authorized by the FDA under an Emergency Use Authorization (EUA) for use by authorized laboratories. Due to the current public health emergency, [facility] is receiving a high volume of samples [...] about COVID-19 can be found at the [facility] website: www.TaiMed Biologics.Silicon Genesis/Covid19. Microbiology Nasopharyngeal swab / Unknown 09/22/2020 3:25 PM EST 09/22/2020 3:25 PM EST [facility] - 09/24/2020 7:00 PM EST Performing Organization Information: ?Site ID: [id number] ?Name: [employer] ?Address: [address] [place] [address],[facility] [place] [address] ?Director: JAMIA CANNON MD Performed at [facility] License number [id number] Michele Hwang PA-C MICROBIOLOGY - NERAL ORDERABLES Performing Organization Address City/State/[facility] Co de Phone Number [facility] documented in this encounter Visit Diagnoses Diagnosis Encounter for laboratory testing for COVID-19 virus documented in this encounter
--- OUTSIDE RECORDS SUMMARY | 2024-12-27 08:08 | XMS_ITS | Encounter Summary ---
Author Organization [facility] Address [address] [place] [address] Care Team Providers Care Black Top Paver Operator Name Role Phone Unavailable Primary Care Provider Unavailabl e Encounter Details Date Type Department Care Team (Late st Contact Info) Description 07/28/2020 Lab Requisition [facility] Testing [address] [phone] Michele Hwang PA-C [address] [place] [address] Encounter for laboratory testing for COVID-19 virus [...] DETECTED NOT DETECTED 08/01/2020 6:00 PM EDT [facility] Comment: A Not Detected (negative) [...] providers and patients using the following websites: https://www.Harbinger Medical.Soylent Corporation/home/Covid-19/HCP/QuestLDTP/ fact-sheet https://www.BitRock/home/Covid-19/Patients/QuestLDTP/ fact-sheet.html This test has been authorized by the FDA under an Emergency Use Authorization (EUA) for use by authorized laboratories. Due to the current public health emergency, [facility] is receiving a high volume of samples [...] about COVID-19 can be found at the [facility] website: www.CareLuLu.Soylent Corporation/Covid19. Microbiology Nasopharyngeal swab / Unknown 07/28/2020 3:29 PM EDT 07/28/2020 3:29 PM EDT [facility] 08/01/2020 6:00 PM EDT Performing Organization Information: ?Site ID: [id number] ?Name: [employer] ?Address: [address] [place] [address],[place] [address] ?Director: JAMIA CANNON MD Performed at [facility] License number [id number] Michele Hwang PA-C MICROBIOLOGY - NERAL ORDERABLES Performing Organization Address City/State/[facility] Co de Phone Number [facility] documented in this encounter Visit Diagnoses Diagnosis Encounter for laboratory testing for COVID-19 virus documented in this encounter
--- OUTSIDE RECORDS SUMMARY | 2024-12-27 08:08 | XMS_ITS | Clinical Summary ---
Author Organization [facility] Address [address] [place] [address] Care Team Providers Care Metal Precision Machine Assembler Name Role Phone Unavailable Primary Care Provider Unavailabl e Encounters Date Type Department Care Team Description 12/24/2024 Orders Only [facility] Urologic Surgery [address] [place] [phone] Nena Ortiz MD 12/24/2024 Transcribe Orders [facility] Urologic Surgery [address] [address] Nena Ortiz MD Flank pain (Primary Dx); Urinary crystals from Last 3 Months Social History Tobacco Use Types Packs/Day Years [...] on patient's age to complete this topic Procedures Procedure Name Priority Date/Time Associated Diagnosis Comments URINALYSIS, COMPLETE W/ REFLEX TO CULTURE Routine 11/19/2024 4:56 PM EST CYTOLOGY, URINE Routine 11/18/2024 4:58 PM EST LAB RESULT Routine 11/12/2024 4:55 PM EST from Last 3 Months Results * Urinalysis, Complete w/ Reflex to Culture (11/19/2024 4:56 PM EST) Nena Ortiz MD URINE ORDERABLES * Cytology, urine (11/18/2024 4:58 PM EST) Urine Nena Ortiz MD PATHOLOGY/CYTOLOGY O RDERABLES * LAB RESULT (11/12/2024 4:55 PM EST) Nena Ortiz MD HX AMB PROCEDURES from Last 3 Months
--- OUTSIDE RECORDS SUMMARY | 2024-12-27 08:08 | XMS_ITS | Encounter Summary ---
Author Organization [facility] Address [address] [place] [address] Care Team Providers Care Pond Tender Name Role Phone Unavailable Primary Care Provider Unavailabl e Encounter Details Date Type Department Care Team (Late st Contact Info) Description 06/16/2020 Lab Requisition [facility] Testing [address] [phone] Michele Hwang PA-C [address] [place] [address] Encounter for laboratory testing for COVID-19 virus [...] providers and patients using the following websites: https://www.Connexity.Ailola/home/Covid-19/HCP/QuestLDTP/ fact-sheet https://www.BinOptics/home/Covid19/Patients/QuestLDTP/ fact-sheet.html This test has been authorized by the FDA under an Emergency Use Authorization (EUA) for use by authorized laboratories. Due to the current public health emergency, [facility] is receiving a high volume of samples [...] about COVID-19 can be found at the [facility] website: www.Vinogusto.com.Ailola/Covid19. Microbiology Nasopharyngeal swab / Unknown 06/16/2020 1:24 PM EDT 06/16/2020 1:24 PM EDT [facility] - 06/17/2020 3:00 PM EDT Performing Organization Information: ?Site ID: [id number] ?Name: [employer] ?Address: [address] [place] [address],[facility] [place] [address] ?Director: JAMIA CANNON MD [facility] at [facility] number [id number] Michele Hwang PA-C MICROBIOLOGY - NERAL ORDERABLES Performing Organization Address City/State/[facility] Co de Phone Number [facility] documented in this encounter Visit Diagnoses Diagnosis Encounter for laboratory testing for COVID-19 virus documented in this encounter
--- OUTSIDE RECORDS SUMMARY | 2024-12-27 08:08 | XMS_ITS | Continuity of Care Document ---
Author Name [facility] Organization [facility] Care Team Providers Care Theatrical Variety Agent Name Role Phone [facility] Unavailable Unavailable Problems [...] 2022 Entered By: MIGUELITO GABRIEL Comment: reviewed [facility] [place] [facility] Chronic Post-Traumatic Stress Disorder ([facility] [id number]) Active Condition Oct 13, 2023 Entered By: MIGUELITO GABRIEL Comment: reviewed [place] Comanagement Active Condition Dec 01, 2022 Entered By: RUTHIE ESTEBAN Comment: Belén Knight [facility] Exposure to potentially hazardous substance Active Condition Dec 15, 2022 Entered By: JANEY RODRIGEZ Comment: [place] (901GE) History of deployment Active Condition [facility] [place] Major depressive disorder Active Condition Jan 25, 2021 Entered By: MIGUELITO GABRIEL Comment: reviewedAug 20, 2021 Entered By: MIGUELITO GABRIEL Comment: reviewedOct 13, 2023 Entered By: MIGUELITO GABRIEL Comment: reviewed [facility] Migraine Active Condition Jul 25 Entered By: RUTHIE ESTEBAN Comment: followed by Dr. Vo [facility] Sleep apnea Active Condition Sep 09, 2022 Entered By: RUTHIE ESTEBAN Comment: unable to tolerate PAP therapy [facility] Affective disorder Inactive Condition 10/13/2023 [facility] Chronic post-traumatic stress disorder Inactive Condition 08/20/2021 MICHAEL GARZA Diagnosis: ICD-10-CM G47.30 Sleep apnea, unspecified Active Diagnosis [facility] (111GE) Diagnosis: ICD-10-CM F43.12 Post-traumatic stress disorder, chronic Active Diagnosis [place] Diagnosis: ICD-10-CM G47.33 Obstructive sleep apnea (adult) (pediatric) Active Diagnosis [facility] Diagnosis: ICD-10-CM K03.6 Deposits [accretions] on teeth Active Diagnosis [facility] Diagnosis: ICD-10-CM M54.59 Other low back pain Active Diagnosis [place] Medications Combined list of outpatient medications from [...] ORAL ACTIVE Guy GABRIEL 2023 [place] sertraline (U/D) 25 MG ORAL TAB TAKE ONE TABLET BY MOUTH ONCE DAILY FOR MOOD 10/13/2024 [id number] MIGUEILTO GABRIEL 2023 60 [facility] SERTRALINE HCL 25MG TAB TAKE ONE TABLET BY MOUTH ONCE DAILY FOR POSTTRAU MATIC STRESS SYNDROME ORAL SUSPEND ED 08/06/2025 [id number] Guy GABRIEL 2023 60 [place] SERTRALINE HCL 25MG TAB TAKE ONE TABLET BY MOUTH ONCE DAILY FOR MOOD ORAL DISCONT INUED 10/13/2024 [id number] Guy GABRIEL 2022 60 [place] SODIUM FLUORIDE 1.1% TOOTHPASTE BRUSH SMALL AMOUNT TO TEETH TWICE DAILY FOR TOOTH DECAY PREVENTI ON DENTAL ACTIVE 10/12/2025 [id number] Geraldine KEYES 2023 51 [facility] UBROGEPANT TAB TAKE BY MOUTH ONE TIME [...] Site Reaction Lot Number CVX Code Drug Cop Breaker Status Comments Source influenza, injectable, quadrivalent, contains preservative 1 2018 [id number] Seq[employer] (SEQ) complet ed influenza , injectabl e, quadrival ent, contains preservat vaughn DoD anthrax vaccine 1 2018 [id number] [facility] complet ed anthrax vaccine DoD typhoid Vi capsular polysaccharid e vaccine 1 2018 [id number] Sanofi Pasteur (PMC) complet ed typhoid Vi capsular polysacch aride vaccine DoD Influenza, seasonal, injectable, preservative free 1 2017 [id number] Seqirus (SEQ) comple t ed Influenza , seasonal, injectabl e, preservat vaughn free DoD Influenza, injectable, quadrivalent, preservative free 1 2017 UNK 150 Unknown (UNK) comple t ed Influenza , injectabl e, quadrival ent, preservat vaughn free DoD Influenza, seasonal, injectable, preservative free 1 2016 [id number] 140 Unknown (UNK) comple t ed Influenza , seasonal, injectabl e, preservat vaughn free DoD Influenza, seasonal, injectable, preservative free 1 2015 [id number] 140 Other (OTH) complet ed Influenza , seasonal, injectabl e, preservat vaughn free DoD Influenza, seasonal, injectable, preservative free 1 2014 [id number] 140 Other (OTH) complet ed Influenza , seasonal, injectabl e, preservat vaughn free DoD hepatitis B vaccine, adult dosage 3 2013 [id number] 43 Other (OTH) complet ed hepatitis B vaccine, adult dosage DoD hepatitis A vaccine, adult dosage 3 2013 [id number] 52 Other (OTH) complet ed hepatitis A vaccine, adult dosage DoD Influenza, seasonal, injectable, preservative free 1 2013 [id number] [facility] Influenza , seasonal, injectabl e, preservat vaughn free DoD hepatitis A and hepatitis B vaccine 2 2012 [id number] 104 [facility] (SKB) complet ed hepatitis A and hepatitis B vaccine DoD measles, mumps and rubella virus vaccine 1 2012 UNK 03 Unknown (UNK) Not Given measles, mumps and rubella virus vaccine DoD varicella virus vaccine 1 2012 UNK 21 Unknown (UNK) Not Given varicella virus vaccine DoD hepatitis A and hepatitis B vaccine 1 2012 [id number] 104 [employer]line (SKB) complet ed hepatitis A and hepatitis B vaccine DoD Adenovirus, type 4 and type 7, live, oral 1 2012 [id number] 143 [email or web address] (BRR) complet ed Adenoviru s, type 4 and type 7, live, oral DoD influenza, live, intranasal, quadrivalent 1 2012 [id number] CS [employer] (CSL) complet ed influenza , live, intranasa l, quadrival ent DoD poliovirus vaccine, inactivated 1 2012 [id number] 10 Sanofi Pasteur (PMC) complet ed polioviru s vaccine, inactivat ed DoD meningococcal polysaccharid e (groups A, C, Y and W-135) diphtheria toxoid conjugate vaccine (MCV4P) 1 2012 [id number] 114 [employer]Kline (SKB) complet ed meningoco ccal polysacch aride (groups A, C, Y and W-135) diphtheri a toxoid conjugate vaccine (MCV4P) DoD tetanus toxoid, reduced diphtheria toxoid, and acellular pertu is vaccine, adsorbed 1 2012 [id number] 115 Sanofi Pasteur (PMC) complet ed tetanus [...] Sep 17, 2023 11:53 AM Reporting Lab: [facility] [employer] [address] Performing Lab: [facility] [employer] [address] [facility] BASIC METABOLIC PANEL (fasting) UREA NITROGEN [MASS/VOLUM E] IN SERUM OR PLASMA 13 mg/dL 7 - 25 09/17 Specimen Type: SERUM No comment entered. Ordering Provider: JOSHUA ESTEBAN Report Released Date/Time: March 19, 2023 04:54 PM Reporting Lab: [facility] W[facility]SU[facility]IRA [facility] [address] [facility] [address] Performing Lab: [facility]ITALR WSTRN [facility]ITALUSE[address] [address] [facility]OSPITALRHILL [facility] SERVICESN [facility] BASIC METABOLIC PANEL (fasting) GLUCOSE [MASS/VOLUM E] IN SERUM OR PLASMA 92 mg/dL 65 - 100 09/17 Specimen Type: SERUM No comment entered. Ordering Provider: JOSHUA ESTEBAN Report Released Date/Time: March 19, 2023 04:54 PM Reporting Lab: [facility]N [address] [address] Performing Lab: [facility] HOSPITALRDEKALB REGIONAL MEDICAL CENTERTRN [facility]ITALUSE[address] [address] [facility]ITALN [facility] BASIC METABOLIC PANEL (fasting) SODIUM [MOLES/VOLU ME] IN SERUM OR PLASMA 139 mmol/L 135 - 145 09/17 Specimen Type: SERUM No comment entered. Ordering Provider: JOSHUA ESTEBAN Report Released Date/Time: March 19, 2023 04:54 PM Reporting Lab: [facility]OSPITALRDEKALB REGIONAL MEDICAL CENTERTRN [place] [address] [address] Performing Lab: [facility] HOSPITALRL WSTRN MASSUSE[address] [address] [facility]OSPITALRDEKALB REGIONAL MEDICAL CENTERTRN [facility]OSPITALUSE IRA [facility] BASIC METABOLIC PANEL (fasting) POTASSIUM [MOLES/VOLU ME] IN SERUM OR PLASMA 4.2 mmol/L 3.5 - 5.0 09/17 Specimen Type: SERUM No comment entered. Ordering Provider: JOSHUA ESTEBAN Report Released Date/Time: March 19, 2023 04:54 PM Reporting Lab: [facility] HOSPITALRDEKALB REGIONAL MEDICAL CENTERTRN MASSUSE[address] [address] Performing Lab: [facility] HOSPITALRL WSTRN M[place]CHUSEIRA [facility] [address] [facility] [address] [facility]ITALN [facility] BASIC METABOLIC PANEL (fasting) CHLORIDE [MOLES/VOLU ME] IN SERUM OR PLASMA 105 mmol/L 100 - 110 09/17 Specimen Type: SERUM No comment entered. Ordering Provider: JOSHUA ESTEBAN Report Released Date/Time: March 19, 2023 04:54 PM Reporting Lab: [facility] HOSPITALRHILL [facility] SERVICESN [facility] HOSPITALUSEIRA [facility] [address] [facility] [address] Performing Lab: [facility]OSPITALRHILL [facility] SERVICESN [facility] HOSPITALUSEIRA [facility] [address] [facility] [address] [facility]ITALN [facility] BASIC METABOLIC PANEL (fasting) CARBON DIOXIDE, TOTAL [MOLES/VOLU ME] IN SERUM OR PLASMA 26 meq/L 20 - 30 09/17 Specimen Type: SERUM No comment entered. Ordering Provider: JOSHUA ESTEBAN Report Released Date/Time: March 19, 2023 04:54 PM Reporting Lab: [facility] HOSPITALRHILL [facility] SERVICESN [address] [address] Performing Lab: [facility] HOSPITALRHILL [facility] SERVICESN [address] [address] [facility]ITALN [facility] BASIC METABOLIC PANEL (fasting) CREATININE [MASS/VOLUM E] IN SERUM OR PLASMA 1.11 mg/dL 0.50 - 1.40 09/17 Specimen Type: SERUM No comment entered. Ordering Provider: JOSHUA ESTEBAN Report Released Date/Time: March 19, 2023 04:54 PM Reporting Lab: [facility] HOSPITALRDEKALB REGIONAL MEDICAL CENTERTRN [facility]PITALUSE[address] [address] Performing Lab: [facility] HOSPITALRHILL [facility] SERVICESN [facility]ITALUSE[address] [address] [facility]ITALN [facility] BASIC METABOLIC PANEL (fasting) GLOMERULAR FILTRATION RATE/1.73 SQ M.PREDICTED [VOLUME RATE/AREA] IN SERUM, PLASMA OR BLOOD BY CREATININE- BASED FORMULA (CKD-EPI 2020) 90 mL/min 60 09/17 Specimen Type: SERUM No comment entered. Ordering Provider: JOSHUA ESTEBAN Report Released Date/Time: March 19, 2023 04:54 PM Reporting Lab: [facility] [address] [facility] [address] Performing Lab: [facility] [address] [facility] [address] [facility] CBC AND DIFF (AUTO) LEUKOCYTES [#/VOLUME] IN BLOOD BY AUTOMATED COUNT 11.72 10*3/u L 4.50 - 11.00 09/17 H Specimen Type: BLOOD No comment entered. Ordering Provider: JOSHUA ESTEBAN Report Released Date/Time: March 19, 2023 04:54 PM Reporting Lab: [facility] [address] [facility] [address] Performing Lab: [facility] [address] [facility] [address] [facility] CBC AND DIFF (AUTO) ERYTHROCYTE S [#/VOLUME] IN BLOOD BY AUTOMATED COUNT 5.54 10*6/u L 4.23 - 5.66 09/17 Specimen Type: BLOOD No comment entered. Ordering Provider: JOSHUA ESTEBAN Report Released Date/Time: March 19, 2023 04:54 PM Reporting Lab: [facility] [place] [address] [facility] [address] Performing Lab: [facility] [facility] [address] [facility] [address] [facility] CBC AND DIFF (AUTO) HEMOGLOBIN [MASS/VOLUM E] IN BLOOD 14.9 g/dL 12.8 - 17 09/17 Specimen Type: BLOOD No comment entered. Ordering Provider: JOSHUA ESTEBAN Report Released Date/Time: March 19, 2023 04:54 PM Reporting Lab: [facility] [place] [address] [facility] [address] Performing Lab: [facility] [address] [place] [address] [facility] CBC AND DIFF (AUTO) HEMATOCRIT [VOLUME FRACTION] OF BLOOD BY AUTOMATED COUNT 45.1 39.2 - 50.4 09/17 Specimen Type: BLOOD No comment entered. Ordering Provider: JOSHUA ESTEBAN Report Released Date/Time: March 19, 2023 04:54 PM Reporting Lab: [facility] [place] [facility] [address] [facility] [address] Performing Lab: [facility] [place] [facility] [address] [facility] [address] [facility] [place] [facility] CBC AND DIFF (AUTO) MCV [ENTITIC VOLUME] BY AUTOMATED COUNT 81.4 fL 82 - 99 09/17 L Specimen Type: BLOOD No comment entered. Ordering Provider: JOSHUA ESTEBAN Report Released Date/Time: March 19, 2023 04:54 PM Reporting Lab: [facility] HOSPITALRDEKALB REGIONAL MEDICAL CENTERTRN [place] [address] [address] Performing Lab: [facility]OSPITALRL [place] [place] [address] [address] [facility]PITALRL WSTRN MAS[place] TS [facility] CBC AND DIFF (AUTO) MCHC [MASS/VOLUM E] BY AUTOMATED COUNT 33.0 g/dL 30.8 - 35.1 09/17 Specimen Type: BLOOD No comment entered. Ordering Provider: JOSHUA ESTEBAN Report Released Date/Time: March 19, 2023 04:54 PM Reporting Lab: [facility]ITALR [facility] [place] [address] [address] Performing Lab: [facility] [place] [facility] [address] [facility] [address] [facility]ITALRL WSTRN [place] [facility] CBC AND DIFF (AUTO) PLATELETS [#/VOLUME] IN BLOOD BY AUTOMATED COUNT 294 10*3/u L 140 - 360 09/17 Specimen Type: BLOOD No comment entered. Ordering Provider: JOSHUA ESTEBAN Report Released Date/Time: March 19, 2023 04:54 PM Reporting Lab: [facility]ITALR [facility] [place] [address] [address] Performing Lab: [facility]ITALRL [facility] [place] [facility] [address] [facility] [address] [facility] CBC AND DIFF (AUTO) ERYTHROCYTE DISTRIBUTIO N WIDTH [RATIO] BY AUTOMATED COUNT 13.9 12.0 - 16.0 09/17 Specimen Type: BLOOD No comment entered. Ordering Provider: JOSHUA ESTEBAN Report Released Date/Time: March 19, 2023 04:54 PM Reporting Lab: [facility] [place] [facility] [address] [facility] [address] Performing Lab: [facility] [place] [facility] [address] [facility] [address] [facility] [place] [facility] CBC AND DIFF (AUTO) MONOCYTES [#/VOLUME] IN BLOOD BY AUTOMATED COUNT 0.96 10*3/u L 0.30 - 1.10 09/17 Specimen Type: BLOOD No comment entered. Ordering Provider: JOSHUA ESTEBAN Report Released Date/Time: March 19, 2023 04:54 PM Reporting Lab: [facility] [place] [facility] [address] [facility] [address] Performing Lab: [facility] [place] [facility] [address] [facility] [address] [facility] [place] [facility] CBC AND DIFF (AUTO) MCH [ENTITIC MASS] BY AUTOMATED COUNT 26.9 pg 26.2 - 32.6 09/17 Specimen Type: BLOOD No comment entered. Ordering Provider: JOSHUA ESTEBAN Report Released Date/Time: March 19, 2023 04:54 PM Reporting Lab: [facility] [place] [facility] [address] [facility] [address] Performing Lab: [facility] [place] [facility] [address] [facility] [address] [facility] [place] [facility] CBC AND DIFF (AUTO) NEUTROPHILS /100 LEUKOCYTES IN BLOOD BY AUTOMATED COUNT 76.1 43.7 - 75.8 09/17 H Specimen Type: BLOOD No comment entered. Ordering Provider: JOSHUA ESTEBAN Report Released Date/Time: March 19, 2023 04:54 PM Reporting Lab: [facility] [place] [facility] [address] [facility] [address] Performing Lab: [facility] [place] [facility] [address] [facility] [address] [facility] [place] [facility] CBC AND DIFF (AUTO) LYMPHOCYTES /100 LEUKOCYTES IN BLOOD BY AUTOMATED COUNT 13.8 14.0 - 42.3 09/17 L Specimen Type: BLOOD No comment entered. Ordering Provider: JOSHUA ESTEBAN Report Released Date/Time: March 19, 2023 04:54 PM Reporting Lab: [facility] [place] [address] [facility] [address] Performing Lab: [facility] [place] [address] [address] [facility] [facility] CBC AND DIFF (AUTO) MONOCYTES/1 00 LEUKOCYTES IN BLOOD BY AUTOMATED COUNT 8.2 5.1 - 13.7 09/17 Specimen Type: BLOOD No comment entered. Ordering Provider: JOSHUA ESTEBAN Report Released Date/Time: March 19, 2023 04:54 PM Reporting Lab: [facility] [place] [address] [address] Performing Lab: [facility] [place] [facility] [address] [place] [address] [facility] CBC AND DIFF (AUTO) EOSINOPHILS /100 LEUKOCYTES IN BLOOD BY AUTOMATED COUNT 1.1 0.4 - 6.8 09/17 Specimen Type: BLOOD No comment entered. Ordering Provider: JOSHUA ESTEBAN Report Released Date/Time: March 19, 2023 04:54 PM Reporting Lab: [facility] [place] [facility] [address] [place] [address] Performing Lab: [facility] [place] [facility] [address] [place] [address] [facility] [place] [facility] CBC AND DIFF (AUTO) BASOPHILS/1 00 LEUKOCYTES IN BLOOD BY AUTOMATED COUNT 0.5 0.1 - 2.0 09/17 Specimen Type: BLOOD No comment entered. Ordering Provider: JOSHUA ESTEBAN Report Released Date/Time: March 19, 2023 04:54 PM Reporting Lab: [facility] [place] [facility] [address] [facility] [address] Performing Lab: [facility] [place] [facility] [address] [facility] [address] [facility] [place] [facility] CBC AND DIFF (AUTO) NEUTROPHILS [#/VOLUME] IN BLOOD BY AUTOMATED COUNT 8.91 10*3/u L 2.20 - 7.60 09/17 H Specimen Type: BLOOD No comment entered. Ordering Provider: JOSHUA ESTEBAN Report Released Date/Time: March 19, 2023 04:54 PM Reporting Lab: [facility] [place] [address] [address] Performing Lab: [facility] [place] [address] [address] [facility] CBC AND DIFF (AUTO) LYMPHOCYTES [#/VOLUME] IN BLOOD BY AUTOMATED COUNT 1.62 10*3/u L 1.00 - 3.20 09/17 Specimen Type: BLOOD No comment entered. Ordering Provider: JOSHUA ESTEBAN Report Released Date/Time: March 19, 2023 04:54 PM Reporting Lab: [facility] [place] [address] [address] Performing Lab: [facility] [place] [facility] [address] [facility] [address] [facility] [place] [facility] CBC AND DIFF (AUTO) EOSINOPHILS [#/VOLUME] IN BLOOD BY AUTOMATED COUNT 0.13 10*3/u L 0.03 - 0.44 09/17 Specimen Type: BLOOD No comment entered. Ordering Provider: JOSHUA ESTEBAN Report Released Date/Time: March 19, 2023 04:54 PM Reporting Lab: [facility] [place] [address] [address] Performing Lab: [facility] [place] [address] [address] [facility]USE [facility] CBC AND DIFF (AUTO) BASOPHILS [#/VOLUME] IN BLOOD BY AUTOMATED COUNT 0.06 10*3/u L 0.01 - 0.13 09/17 Specimen Type: BLOOD No comment entered. Ordering Provider: JOSHUA ESTEBAN Report Released Date/Time: March 19, 2023 04:54 PM Reporting Lab: [facility]ITALN [facility]ITALUSE[address] [address] Performing Lab: [facility]OSPITALRHILL [facility] SERVICESN [facility]PITALUSE[address] [address] [facility] CBC AND DIFF (AUTO) IMMATURE GRANULOCYTE S/100 LEUKOCYTES IN BLOOD BY AUTOMATED COUNT 0.3 0.0 - 0.7 09/17 Specimen Type: BLOOD No comment entered. Ordering Provider: JOSHUA ESTEBAN Report Released Date/Time: March 19, 2023 04:54 PM Reporting Lab: [facility]N [facility]ITALUSE[address] [address] Performing Lab: [facility]ITALN [facility]ITALUSE[address] [address] [facility] CBC AND DIFF (AUTO) IMMATURE GRANULOCYTE S [#/VOLUME] IN BLOOD 0.04 10*3/u L 0.00 - 0.06 09/17 Specimen Type: BLOOD No comment entered. Ordering Provider: JOSHUA ESTEBAN Report Released Date/Time: March 19, 2023 04:54 PM Reporting Lab: [facility] HOSPITALRHILL CREST BEH[facility]IOR[facility] HEALTH SERVICESN MASSUSE[address] [address] Performing Lab: [facility]ITALN [facility]ITALUSE[address] [address] [facility]N [facility]ITALUSE [facility] HEMOGLOBI N A1C PANEL HEMOGLOBIN A1C/HEMOGLO [...] March 19, 2023 04:54 PM Reporting Lab: [facility] HOSPITALRDEKALB REGIONAL MEDICAL CENTERTRN [facility]OSPITALUSEIRA [facility] [address] [facility] [address] Performing Lab: [facility] HOSPITALRL TRN [facility] HOSPITALUSEIRA [facility] [address] [facility] [address] [facility]ITALRL [facility]N [facility]USE IRA [facility] LIPID PANEL FASTING CHOLESTEROL [MASS/VOLUM E] IN SERUM OR PLASMA 168 mg/dL 09/17 Specimen Type: SERUM No comment entered. Ordering Provider: JOSHUA ESTEBAN Report Released Date/Time: March 19, 2023 04:54 PM Reporting Lab: [facility] HOSPITALRHILL [facility] SERVICESN [facility]ITALUSE[address] [address] Performing Lab: [facility]OSPITALRHILL [facility] SERVICESN [facility]ITALUSE[address] [address] [facility]ITALN [facility] LIPID PANEL FASTING TRIGLYCERID E [MASS/VOLUM E] IN SERUM OR PLASMA 185 mg/dL 0 - 150 09/17 H Specimen Type: SERUM No comment entered. Ordering Provider: JOSHUA ESTEBAN Report Released Date/Time: March 19, 2023 04:54 PM Reporting Lab: [facility]OSPITALRHILL [facility] SERVICESN [facility]ITALUSE[address] [address] Performing Lab: [facility] HOSPITALRL TRN [facility]ITALUSE[address] [address] [facility] HOSPITALRHILL [facility]N [facility]USE IRA [facility] LIPID PANEL FASTING CHOLESTEROL IN LDL [MASS/VOLUM E] IN SERUM OR PLASMA BY CALCULATION 91 mg/dL 0 - 129 09/17 Specimen Type: SERUM No comment entered. Ordering Provider: JOSHUA ESTEBAN Report Released Date/Time: March 19, 2023 04:54 PM Reporting Lab: [facility] HOSPITALRDEKALB REGIONAL MEDICAL CENTERTRN [facility]ITALUSE[address] [address] Performing Lab: [facility]OSPITALRHILL [facility] SERVICESN [facility]ITALUSE[address] [address] [facility] HOSPITALRL WSTRN [place] IRA [facility] LIPID PANEL FASTING CHOLESTEROL .TOTAL/CHOL ESTEROL IN HDL [MASS RATIO] IN SERUM OR PLASMA 4.2 09/17 Specimen Type: SERUM No comment entered. Ordering Provider: JOSHUA ESTEBAN Report Released Date/Time: March 19, 2023 04:54 PM Reporting Lab: [facility] [facility] [address] [facility] [address] Performing Lab: [facility] [place] [address] [address] [facility]PITALRDEKALB [facility]ENTERTRN [place] [facility] LIPID PANEL FASTING CHOLESTEROL IN HDL [MASS/VOLUM E] IN SERUM OR PLASMA 40 mg/dL 40 - 60 09/17 Specimen Type: SERUM No comment entered. Ordering Provider: JOSHUA ESTEBAN Report Released Date/Time: March 19, 2023 04:54 PM Reporting Lab: [facility]ITALRDEKAL[facility]ENTERTRN [place] [address] [address] Performing Lab: [facility] [place] [address] [address] [facility] HOSPITALRHILL [facility]ITALUSE [facility] LIVER FUNCTION PROTEIN [MASS/VOLUM E] IN SERUM OR PLASMA 7.5 g/dL 6.0 - 8.3 09/17 Specimen Type: SERUM No comment entered. Ordering Provider: JOSHUA ESTEBAN Report Released Date/Time: March 19, 2023 04:54 PM Reporting Lab: [facility] [place] [address] [address] Performing Lab[facility] [place] [facility] [address] [address] [facility] [place] [facility] LIVER FUNCTION ALBUMIN [MASS/VOLUM E] IN SERUM OR PLASMA 4.3 g/dL 3.5 - 5.0 09/17 Specimen Type: SERUM No comment entered. Ordering Provider: JOSHUA ESTEBAN Report Released Date/Time: March 19, 2023 04:54 PM Reporting Lab: [facility] [place] [place] [address] [address] Performing Lab: [facility] [place] [facility] [address] [facility] [address] [facility] [facility] LIVER FUNCTION ALKALINE PHOSPHATASE [ENZYMATIC ACTIVITY/VO LUME] IN SERUM OR PLASMA 49 U/L 40 - 150 09/17 Specimen Type: SERUM No comment entered. Ordering Provider: JOSHUA ESTEBAN Report Released Date/Time: March 19, 2023 04:54 PM Reporting Lab: [facility] [place] [facility] [address] [facility] [address] Performing Lab: [facility] [place] [facility] [address] [facility] [address] [facility] [place] [facility] LIVER FUNCTION ASPARTATE AMINOTRANSF ERASE [ENZYMATIC ACTIVITY/VO LUME] IN SERUM OR PLASMA 19 U/L 5 - 34 09/17 Specimen Type: SERUM No comment entered. Ordering Provider: JOSHUA ESTEBAN Report Released Date/Time: March 19, 2023 04:54 PM Reporting Lab: [facility] [place] [facility] [address] [facility] [address] Performing Lab: [facility] [place] [facility] [address] [facility] [address] [facility] [place] [facility] LIVER FUNCTION ALANINE AMINOTRANSF ERASE [ENZYMATIC ACTIVITY/VO LUME] IN SERUM OR PLASMA 30 U/L 09/17 Specimen Type: SERUM No comment entered. Ordering Provider: JOSHUA ESTEBAN Report Released Date/Time: March 19, 2023 04:54 PM Reporting Lab: [facility] [place] [facility] [address] [facility] [address] Performing Lab: [facility] [place] [facility] [address] [facility] [address] [facility] [place] [facility] LIVER FUNCTION BILIRUBIN.T OTAL [MASS/VOLUM E] IN SERUM OR PLASMA 0.8 mg/dL 0.2 - 1.2 09/17 Specimen Type: SERUM No comment entered. Ordering Provider: JOSHUA ESTEBAN Report Released Date/Time: March 19, 2023 04:54 PM Reporting Lab: [facility] [place] [facility] [address] [facility] [address] Performing Lab: [facility] [place] [facility] [address] [facility] [address] [facility] [place] [facility] TSH THYROTROPIN [UNITS/VOLU ME] IN SERUM OR PLASMA 2.26 u[IU]/ mL 0.35 - 5.00 09/17 Specimen Type: SERUM No comment entered. Ordering Provider: JOSHUA ESTEBAN Report Released Date/Time: March 19, 2023 04:54 PM Reporting Lab: [facility] [place] [facility] [address] [facility] [address] Performing Lab: [facility] [place] [facility] [address] [facility] [address] [facility] [place] [facility] Encounters Combined list of: 1) Encounters from Department of Veterans Affairs facilities going backup to the last 18 months, not all [place] inpatient encounters are included; 2) Encounters from the Department of Defense facilities going backup to 280 months. Location Location Details Encounter Type Encounter Number Reason For Visit Attending Provider ADM Date DC Date Status Disposition Source [place] [id number] Notes Entered by: CHERIE GONZALES 28 Jul 2013 1407 ------- ------- ------- ------- -- Hearing test CHERIE GONZALES 07/28 [place]ased w/o Limitations [place] [place] [facility] [place] OUTPATIENT [id number] SHUBHAM MAK 07/29 [place]ased w/o Limitations [place]omet [facility]) [place] [id number] Notes Entered by: Christina MCKEON 30 Jul 2013 1007 ------- ------- ------- ------- -- IMM ROBERT REEVES 07/30 Released w/o Limitations [place] [place] OUTPATIENT [id number] Notes Entered by: MADELINE MEDELLIN 24 Aug 2013 07 ------- ------- ------- ------- -- ORTHO- HAND MILLY DIAZ 08/24 Released with Work/Duty Limitations [place] [facility]) [place]) OUTPATIENT [id number] Notes Entered by: RODRIGUE NOBLES 13 Sep 2013 0826 ------- ------- ------- ------- -- IMMZAKIA MULLINS 09/13 Released w/o Limitations [place] [facility]) OUTPATIENT [id number] Notes Entered by: RODRIGUE NOBLES 01 Oct 2013 07 ------- ------- ------- ------- -- ZAKIA Junior 10/01 Released w/o Limitations [place] [address]) OUTPATIENT [id number] Notes Entered by: AMANDA HUGHES 30 Dec 2018 0843 ------- ------- ------- ------- -- TENNILLE/ ALEC GARCIA 12/30 Released w/o Limitations [place]([facility] [address]) Theater Facility OUTPATIENT [id number] Theater Provider 05/08 Released w/o Limitations [facility] OUTPATIENT [id number] Theater Provider 05/09 Released w/o Limitations [facility] OUTPATIENT [id number] Theater Provider 05/12 Released w/o Limitations [facility] OUTPATIENT [id number] Theater Provider 05/23 Released w/o Limitations [facility] OUTPATIENT [id number] Theater Provider 05/24 Released w/o Limitations [facility] OUTPATIENT [id number] 8 Theater Provider 06/28 Released w/o Limitations [facility] OUTPATIENT [id number] Theater Provider 07/03 Released with Work/Duty Limitations [facility] OUTPATIENT [id number] Theater Provider 07/08 Released w/o Limitations [facility] OUTPATIENT [id number] Theater Provider 07/09 Released w/o Limitations [facility] OUTPATIENT [id number] Theater Provider 07/29 Released w/o Limitations [facility] OUTPATIENT [id number] Theater Provider 08/07 Released w/o Limitations [facility] OUTPATIENT [id number] Theater Provider 08/15 Released w/o Limitations [facility] OUTPATIENT [id number] 3 Theater Provider 08/28 Released w/o Limitations [facility] OUTPATIENT [id number] 8 Theater Provider 08/28 Released with Work/Duty Limitations Theater [facility] OUTPATIENT [id number] 2 Theater Provider 09/01 Released w/o Limitations [facility] OUTPATIENT [id number] 1 Theater Provider 09/10 Released w/o Limitations Theater [facility] OUTPATIENT [id number] 5 Theater Provider 09/15 Sick at Home/Quarter s Theater Facilit y Theater Facility OUTPATIENT [id number] 3 Theater Provider 09/16 Sick at Home/Quarter s [facility] OUTPATIENT [id number] 5 Theater Provider 09/17 Sick at Home/Quarter s Theater [facility] Theater Facility OUTPATIENT [id number] 4 Theater Provider 10/09 Released w/o Limitations Theater Facilit [place] B[facility] [address]) OUTPATIENT [id number] 7 Notes Entered by: SARAI MARQUEZ 25 Nov 2019 1127 ------- ------- ------- ------- -- ELMER SOARES 11/25 Released w/o Limitations [place] B[facility] [address]) [place] Hearing Conservat ion) OUTPATIENT [id number] Notes Entered by: CAM HU I 25 Nov 2019 1240 ------- ------- ------- ------- -- POST JADE HO I 11/25 Released w/o Limitations [place] Hearing Conserv ation) [place]am [facility]) OUTPATIENT [id number] Notes Entered by: ASAD STEEL 25 Nov 2019 1305 ------- ------- ------- ------- -- HERMAN 638 SELENA REDDY 11/25 Released w/o Limitations [place] Physica l Exam Clinic) [facility] [place] [facility] POS AIRWAY PRESSURE CPAP [id number] Diagnos is: ICD-10- CM G47.30 Sleep apnea, unspeci fied TONIE QUEZADA P 06/26 [facility] [place] [facility] [place] [facility] En[facility] [id number] 07/11 [facility] [place] [facility] [place] [facility] Encounter [id number] 09/05 [facility] [place] [facility] EST MOD 30-39 MIN [id number] Diagnos is: ICD-10- CM M54.59 Other low back pain Zaheer ESTEBANIO 09/17 [place] [facility] [place] [facility] En[facility] [id number] 09/19 [facility] [place] [facility] [place] [facility] Encounter [id number] 09/24 [facility] [place] [facility] [place] [facility] Encounter [id number] 09/26 [facility] [place] [facility] [place] [facility] Encounter [id number] 09/26 [facility] [place] [facility] [place] [facility] Encounter [id number] 09/26 [facility] [place] [facility] [place] [facility] Encounter [id number] 09/30 [facility] [place] [facility] [place] [facility] Encounter [id number] 10/02 [facility] [place] [facility] [facility] [place] Outpatient Encounter [id number] 10/06 [facility] OFFICE O/P EST HI 40-54 MIN [id number] Diagnos is: ICD-10- CM F43.12 Post-tr aumatic stress disorde r, chronic ST TYRA GABRIEL G 10/13 [facility] [place] [facility] [place] [facility] Encounter [id number] 11/03 [facility] [place] [place] Outpatient Encounter [id number] 12/18 [facility] [place] Outpatient Encounter [id number] Diagnos is: ICD-10- CM F43.12 Post-tr aumatic stress disorde r, chronic ST TYRA GABRIEL G 12/18 [place] [facility] Encounter [id number] 12/22 [facility] [place] [place] En[facility] [id number] 02/11 [facility] [place] [place] [facility] Encounter [id number] 02/19 [facility] [place] [facility] [place] OFFICE O/P NEW LOW 30 MIN [id number] Diagnos is: ICD-10- CM G47.33 Obstruc tive sleep apnea (adult) (pediat sarah) PRISCA KEYES CTORIA J 02/22 [facility] [place] [place] Encounter [id number] 02/22 [facility] [place] [facility] [place] [facility] Encounter [id number] 03/26 [facility] [place] [place] [facility] [place] Outpatient Encounter [id number] 03/29 [facility] [place] OFFICE O/P EST HI 40 MIN [id number] Diagnos is: ICD-10- CM F43.12 Post-tr aumatic stress disorde r, chronic ST TYRA GABRIEL G 04/01 [place] [facility] Encounter [id number] 04/23 [facility] [place] [place] ORAL DEVICE/RODDY LIANCE CUSFAB [id number] Diagnos is: ICD-10- CM G47.33 Obstruc tive sleep apnea (adult) ([facility] sarah) PRISCA KEYES CT[place] J 04/26 [facility] [place] [place] En[facility] [id number] 06/01 [facility] [place] [place] OFF[facility] O/P EST LOW 20 MIN [id number] Diagnos is: ICD-10- CM G47.33 Obstruc tive sleep apnea (adult) ([facility]) PRISCA KEYES CTORIA J 06/02 [facility] [place] [facility] [facility] [place] Encounter [id number] 07/12 [facility] [place] [facility] [place] OFF[facility] O/P EST LOW 20 MIN [id number] Diagnos is: ICD-10- CM G47.33 Obstruc tive sleep apnea (adult) ([facility] sarah) PRISCA KEYES CT[place] J 07/13 [facility] [place] [place] OFF[facility] O/P EST LOW 20 MIN [id number] Diagnos is: ICD-10- CM G47.33 Obstruc tive sleep apnea (adult) ([facility] sarah) PRISCA KEYES CT[place]IA J 07/14 [facility] [place] [place] En[facility] [id number] 07/15 [facility] [place] [place] Encounter [id number] 07/26 [facility] [place] [facility] [place] [facility] OFFICE O/P EST LOW 20 MIN [id number] Diagnos is: ICD-10- CM G47.33 Obstruc tive sleep apnea (adult) (pediat sarah) PRISCA KEYES CT[place]IA J 07/27 [facility] [place] [facility] [place] [facility] Outpatient Encounter [id number] 07/29 [facility] [place] [facility] OFFICE O/P EST MOD 30 MIN [id number] 1BY. 12 Diagnos is: ICD-10- CM F43.12 Post-tr aumatic stress disorde r, chronic ST TYRA GABRIEL G 08/05 [place] [facility] [place] [facility] Outpatient Encounter [id number] 09/21 [facility] [place] [facility] [place] [facility] Outpatient Encounter [id number]/24 [facility] [place] [facility] [facility] [place] [facility] Outpatient Encounter [id number] 1.10/06 [facility] [place] [facility] [place] [facility] Outpatient Encounter [id number] 10/08 [facility] [place] [facility] OFFICE O/P EST MOD 30 MIN [id number] Diagnos is: ICD-10- CM F43.12 Post-tr aumatic stress disorde r, chronic ST STEFANI GABRIELEN G 10/11 [place] [facility] [place] [facility] COMPREHENS VE ORAL EVALUATION [id number] 1. Diagnos is: ICD-10- CM G47.33 Obstruc tive sleep apnea (adult) (pediat sarah) PRISCA KEYES CTORIA J 10/11 [facility] [place] Encounter [id number] 1.10/26 [facility] [place] [facility] [facility] [place] [facility] CASE MGMT-ORAL HEALTH LIT [id number] 1. Diagnos is: ICD-10- CM K03.6 Deposit s [accret ions] on teeth JENNIFERJOHNNA K 10/27 [facility] [place] [place] [facility] OFFICE O/P EST LOW 20 MIN [id number] 1. Diagnos is: ICD-10- CM G47.33 Obstruc tive sleep apnea (adult) (pediat sarah) PRISCA KEYES CT[place]IA J 11/02 [facility] [place] Out[facility] Encounter [id number] 1.11/08 [facility] [place] Encounter [id number] 1.11/08 [facility] [place] [facility] [place] SYNCH AUDIO-ONLY EST LOW 20 [id number] Diagnos is: ICD-10- CM F43.12 Post-tr aumatic stress disorde r, chronic HARVEY,ST MARY G 12/02 [place] [facility] Out[facility] Encounter [id number] 12/02 [facility] [place] Out[facility] Encounter [id number] Sandra DAMIAN 12/09 [facility] [place] [facility] (89[facility]) SLEEP STUDY UNATT&RESP EFFT [id number] Diagnos is: ICD-10- CM G47.30 Sleep apnea, unspeci fied FRANCISCO JAVIER MCPHERSON 12/23 [facility] (631GE) Procedures Combined list of: 1) Procedures from Department of Veterans Affairs facilities going back up to thelast 18 months, not all VA non-surgical procedures are included; 2) All procedures from the Department of Defense facilities. Procedure Procedure Type Code Date Perfomer Comments Sour e Screening Test Of Visual Acuity, Quantitative, Bilateral Screening Test Of Visual Acuity, Quantitative, Bilateral 15441 019 ALEC MEYERS Hepatitis A And Hepatitis B (Intramuscular Use) Adult Dosage Hepatitis A And Hepatitis B (Intramuscular Use) Adult Dosage 47351 ZAKIA LAM [facility] Immunization Administration By Injection, One Vaccine Immunization Administration By Injection, One Vaccine 33954 ZAKIA LAM [facility] Vaccines Adenovirus Type 7 Live, For Oral Use Vaccines Adenovirus Type 7 Live, For Oral Use 88741 ROBERT REEVES A single vaccine dose adminstered orally. [facility] Vaccines Adenovirus Type 4 Live, For Oral Use Vaccines Adenovirus Type 4 Live, For Oral Use 92613 ROBERT REEVES A single vaccine dose adminstered orally. DoD Immunization Admin Intranasal / Oral Each Additional Vaccine Immunization Admin Intranasal / Oral Each Additional Vaccine 92606 ROBERT REEVES [facility] Influenza Virus Vaccine Intranasal Live Attenuated Influenza Virus Vaccine Intranasal Live Attenuated 12321 ROBERT REEVES Flumist: Each sprayer contains a single dose of Flumist; approximately one-half of the contents was administered into each nostril. Patient was observed for 15 min with no adverse reactions. DoD Immunization Admin By Intranasal / Oral Route One Vaccine Immunization Admin By Intranasal / Oral Route One Vaccine 66717 ROBERT REEVES [facility] Immunization Administration By Injection, Each Additional Vaccine Immunization Administration By Injection, Each Additional Vaccine 87210 ROBERT REEVES DoD Physician Supervised Injection Intramuscular Antibiotic Physician Supervised Injection Intramuscular Antibiotic 77141 ROBERT REEVES [facility] Tdap Vaccine Tdap Vaccine 74957 ROBERT REEVES Visit for an IM injection of 0.5mL of Boostrix (Tetanus and Diphtheria Toxoids and Acellular Pertussis). Was given in the Right Deltoid. Patient was observed for 15 min with no adverse reactions. [facility] Meningococcal Polysaccharide Diphtheria Toxoid Conjugate Vaccine ROBERT REEVES Visit for an IM injection of 0.5mL of Meningococcal Vaccine (Menactra). Was given in the Left Deltoid. Patient was observed for 15 min with no adverse reactions. [facility] Vaccines Viral Polio, Inactivated Vaccines Viral Polio, Inactivated 71014 ROBERT REEVES Visit for an IM injection of 0.5mL of IPOL (Poliovirus Vaccine Inactivated). Was given in the Right Deltoid. Patient was observed for 15 min with no adverse reactions. [facility] Hepatitis A And Hepatitis B (Intramuscular Use) Adult Dosage Hepatitis A And Hepatitis B (Intramuscular Use) Adult Dosage 20918 ROBERT REEVES Visit for an IM injection of 1mL of Twinrix (Hepatitis A and B combination). Was given in the Right Deltoid. Patient was observed for 15 min with no adverse reactions. [facility] Injection, penicillin g benzathine, 100,000 units ROBERT REEVES Visit for an IM injection of 1.2 million/units per 2 mL of Bicillin L-A (Penicillin G Benxathine injectable suspension). Was given in the Left upper quadrant, left buttock. Patient was observed for 15 min with no adverse reactions. [facility] Skin Test Anergy Tuberculin Intradermal Skin Test Anergy Tuberculin Intradermal 24712 ROBERT REEVES Visit for intradermal tuberculin testing of 0.1mL of Mantoux (Tuberculin Purified Protein Derivative). Was given in the Left forearm, volar surface. Patient was observed for 15 min with no adverse reactions. [facility] Spectacles Services Fitting Monofocal Except For Aphakia Spectacles Services Fitting Monofocal Except For Aphakia 31605 AVI ROSAS [facility] Determination Of Refractive State Determination Of Refractive State 56561 AVI ROSAS [facility] Ophthalmological New Patient Start Comprehensive Care Ophthalmological New Patient Start Comprehensive Care 05090 AVI ROSAS [facility] Ear mold/insert, not disposable, any type CHERIE GONZALES [facility] Physician Supervised Group Educational Services Physician Supervised Group Educational Services 34807 CHERIE GONZALES [facility] Audiometry Group Testing Audiometry Group Testing 48448 CHERIE GONZALES [facility] Screening Test Of Visual Acuity, Quantitative, Bilateral Screening Test Of Visual Acuity, Quantitative, Bilateral 75159 ELMER BETANCUR [facility] Threshold Audiogram (Pure Tone) Automated Threshold Audiogram (Pure Tone) Automated 0208T RIKKI CORBIN [facility] Patient education, not otherwise cla ified, non-physician provider, group, per se ion RIKKI CORBIN [facility] PATIENT EDUCATION, NOT OTHERWISE CLASSIFIED, NON-PHYSICIAN PROVIDER, GROUP, PER SESSION [facility] HEPATITIS A AND HEPATITIS B VACCINE (HEPA-HEPB), ADULT DOSAGE, FOR INTRAMUSCULAR USE 013 [facility] SCREENING TEST OF VISUAL ACUITY, QUANTITATIVE, BILATERAL [facility] ADENOVIRUS VACCINE, TYPE 7, LIVE, FOR ORAL USE [facility] FITTING OF SPECTACLES, EXCEPT FOR APHAKIA; MONOFOCAL [facility] EAR MOLD/INSERT, NOT DISPOSABLE, ANY TYPE [facility] TYPHOID VACCINE, CAPSULAR POLYSACCHARIDE (VICPS), FOR INTRAMUSCULAR USE 019 [facility] SCREENING TEST OF VISUAL ACUITY, QUANTITATIVE, BILATERAL 019 [facility] Social History Combined list of available smoking, tobacco, and other social history from Department of Defense and Veterans Affairs facilities. Social History Type Response Date Comment Sourc e Tobacco smoking status NHIS [facility] History of tobacco use VA-TOBACCO NEVER USED 11/26/2021 [place] History of tobacco use VA-TOBACCO NEVER USED 04/21/2020 [facility] [place] [facility] This section is an empty social history section. [facility] Plan of Care List of future care activities from Department of Veterans Affairs facilities. Additional future care activities may be listed in the Assessment and Plan section. Date/Time Care Activity Care Activity Detail Facili ty 12/30/2024 AMBULATORY - NONE AMBULATORY - NONE [facility] 01/20/2025 [facility] - MEDICINE [facility] 04/26/2025 AMBULATORY - NONE AMBULATORY - NONE [facility] VITO [facility] 12/02/2024 Consult Order [facility] PSYCHOTHERAPY Cons [facility]
--- OUTSIDE RECORDS SUMMARY | 2024-12-27 08:08 | XMS_ITS | Encounter Summary ---
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 Name Role Phone Unavailable Primary Care Provider Unavailabl e Encounter Details Date Type Department Care Team (Late st Contact Info) Description 09/08/2020 Lab Requisition EM Lab DOC: Raudel Rodriguez [address] [place] [phone] Michele Hwang PA-C [address] [place] [address] Encounter for laboratory testing for COVID-19 virus [...] (COVID-19), Qual (09/08/2020 3:27 PM EDT) Pathologist [facility] SARS CoV 2 RNA, Qual NOT DETECTED NOT DETECTED 09/10/2020 5:00 AM EDT [facility] Comment: A Not Detected (negative) test [...] providers and patients using the following websites: https://www.[employer].Content Raven/home/Covid-19/HCP/QuestLDTP/ fact-sheet https://www.[employer].Content Raven/home/Covid-19/Patients/QuestLDTP/ fact-sheet.html This test has been authorized by the FDA under an Emergency Use Authorization (EUA) for use by authorized laboratories. Due to the current public health emergency, [facility] is receiving a high volume of samples [...] about COVID-19 can be found at the [facility] website: www.[employer].Content Raven/Covid19. Microbiology Nasopharyngeal swab / Unknown 09/08/2020 3:27 PM EDT 09/08/2020 3:27 PM EDT Narrative [facility] - 09/10/2020 5:00 AM EDT Performing Organization Information: ?Site ID: [id number] ?Name: [facility] ?Address: [address] [place] [address],[place] [address] ?Director: JAMIA CANNON MD [facility]formed at [facility] License number [id number] Michele Hwang PA-C MICROBIOLOGY - NEROH ORDERABLES Performing Organization Address City/State/[facility] Co de Phone Number [facility] documented in this encounter Visit Diagnoses Diagnosis Encounter for laboratory testing for COVID-19 virus documented in this encounter
--- OUTSIDE RECORDS SUMMARY | 2024-12-27 08:08 | XMS_ITS | Encounter Summary ---
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 Name Role Phone Unavailable Primary Care Provider Unavailabl e Encounter Details Date Type Department Care Team (Late st Contact Info) Description 08/18/2020 Lab Requisition [facility] Testing [address] [phone] Michele Hwang PA-C [address] [place] [address] Encounter for laboratory testing for COVID-19 virus [...] DETECTED NOT DETECTED 08/20/2020 12:00 AM EDT [facility] Comment: A Not Detected [...] providers and patients using the following websites: https://www.OneWheel.Bonfire.com/home/Covid-19/HCP/QuestLDTP/ fact-sheet https://www.[employer]/home/Covid-19/Patients/QuestLDTP/ fact-sheet.html This test has been authorized by the FDA under an Emergency Use Authorization (EUA) for use by authorized laboratories. Due to the current public health emergency, [facility] is receiving a high volume of samples [...] about COVID-19 can be found at the [facility] website: www.[employer].Bonfire.com/Covid19. Microbiology Nasopharyngeal swab / Unknown 08/18/2020 3:51 PM EDT 08/18/2020 3:51 PM EDT [facility] - 08/20/2020 12:00 AM EDT Performing Organization Information: ?Site ID: [id number] ?Name: [facility] ?Address: [address] [place] [address],[place] [address] ?Director: JAMIA CANNON MD [facility] number [id number] Michele Hwang PA-C MICROBIOLOGY - NERAL ORDERABLES Performing Organization Address City/State/[facility] Co de Phone Number [facility] documented in this encounter Visit Diagnoses Diagnosis Encounter for laboratory testing for COVID-19 virus documented in this encounter
--- OUTSIDE RECORDS SUMMARY | 2024-12-27 08:08 | XMS_ITS | Encounter Summary ---
Author Organization [facility] Address [address] [place] [address] Care Team Providers Care Manager Science Name Role Phone Unavailable Primary Care Provider Unavailabl e Reason for Referral * Urology (Routine) - Pending Review Specialty Diagnoses / Procedures Referred By Contac t Referred To Contact Urology Diagnoses Flank pain Urinary crystals Nena Ortiz MD [address] [place] [address] Ephraim Espinal MD [address] [place] [address] Referral ID Status Reason Start Date Expiration Date Visits Requested Visits Authorized [id number] Pending Review Consult 12/24/2024 12/25/2025 1 1 Encounter Details Date Type Department Care Team (Latest Contact Info) Description 12/24/2024 Transcribe Orders [facility] Urologic Surgery [address] [phone] Nena Ortiz MD [address] [place] [address] Flank pain (Primary Dx); Urinary crystals Social History Tobacco Use Types Packs/Day Years Used Date Smoking Tobacco: Never Assessed Sex and Gender Information Value Date Recorded Sex Assigned at Not on file Gender Identity Not on file Sexual Orientation Not on file documented as of this encounter Plan of Treatment Scheduled Referrals Name Type Priority Associated Diagnoses Orde r Schedule Amb Referral to Urology Outpatient Referral Routine Flank pain Urinary crystals Ordered: 12/24/2024 documented as of this encounter Visit Diagnoses Diagnosis Flank pain- Primary Abdominal pain, unspecified site Urinary crystals Other nonspecific finding on examination of urine documented in this encounter
--- OUTSIDE RECORDS SUMMARY | 2024-12-27 08:09 | XMS_ITS | Encounter Summary ---
Author Name [facility] [place] [facility] [place] [facility] [place] Address [address] [place] [address] Support Name Relationship Address Phone LEIGHTON ALLEN Next of Kin [address] [address] LEIGHTON ALLEN Emergency Contact [address] [place] [address] Care Team Providers Care Wool Washer Name Role Phone CORINNA SEVILLA Primary Care [...] [facility] Aug 17, 2020 [id number] [phone] ALLEN,CAR LOS PATIENT [place] ([place]UE CARD) PREFERRED PROVIDER ORGANIZAT ION (PPO) [facility] Aug 17, 2020 [id number] ALLEN,CAR LOS PATIENT [facility] PRESCRIPT ION [facility] Aug 17, 2020 [id number] [id number] [phone] ALLEN,CAR LOS PATIENT [facility] PRESCRIPT ION [facility] Aug 17, 2020 [id number] [phone] ALLEN,CAR LOS PATIENT Selected Encounter This section includes the information on record at [place] for the Encounter. Date/Time Encounter Type Encounter Description Reason Provider Source Dec 23, 2024 09:01 AM SLEEP STUDY UNATT&RESP EFFT SLEEP STUDY ICD-10-CM G47.30 Sleep apnea, unspecified VIDA,CALEB IHE Encounter Template Text not used by [place] Assessments - Encounter Diagnoses This section includes the primary and secondary diagnoses documented for the Encounter. Date/Time Primary/Secondary Diagnosis Diagnosis Name Provider Source Dec 23, 2024 01:07 PM PRIMARY Sleep apnea, unspecified VIDA,CALEB [facility] ([id number]) Plan of Treatment: Future Appointments (+ 6 months) and Future Tests (+/- 45 days) The Plan of Treatment section includes future care activities for the patient from all [place] treatmentfacilities. This section includes future appointments and future orders which are active, pending or scheduled. Future Appointments This section includes appointments that were scheduled to occur 6 months from the date of the Encounter, up to a maximum of 20 appointments. The data comes from all [place] treatment facilities. Appointment Date/Time Appointment Type Appointme nt Facility Name Dec 30, 2024 10:30 AM AMBULATORY - NONE [facility] Jan 20, 2025 08:30 AM AMBULATORY - PSYCHIATRY [facility] April 12, 2025 09:30 AM AMBULATORY - MEDICINE [facility] Apr 26, 2025 03:00 PM AMBULATORY - NONE [facility] Active, Pending, and Scheduled Orders This section includes a listing of several types of active, pending, and scheduled orders, including clinic medications orders, diagnostic test orders, procedure orders and consult orders; where the start date of the order is 45 days before the date of the Encounter or 45 days after the date of theEncounter. The data comes from all [place] treatment facilities. Test Date/Time Test Type Test Details Facility Name Dec 02, 2024 09:37 AM Consult Order [facility] PS[facility]CHOTHERAPY Cons Holistic Specialist's Choice [facility] Encounter Notes: All associated encounter notes This section contains the clinical notes associated to the Encounter. Date/Time Encounter Note(s) Provider Source Dec 23, 2024 09:01 AM SLEEP MEDICINE CON SULT: LOCAL TITLE: SLEEP STUDY/CONSULT REPORT STANDARD TITLE: SLEEP MEDICINE CONSULT DATE OF NOTE: DEC 23, 2024@09:01 ENTRY DATE: DEC 23, 2024@13:07:58 AUTHOR: CALEB MCPHERSON EXP COSIGNER: URGENCY: STATUS: COMPLETED SLEEP STUDY/CONSULT REPORT Has ADDENDA Service Location Device Information Diagnosis: G47.30 - Sleep apnea, unspecified Education was provided about what sleep apnea is, how home sleep apnea testing is used to diagnose sleep apnea, and what treatment options are most commonly used to treat it. Patient attended an individual appointment for instruction on use of home sleep testing equipment. Device was given to patient with written instructions and contact information included. All questions were answered and the patient expressed understanding of the provided instructions and care plan. Other notes Reassess with OAT/MAD. still snoring, feels like some improvement with his sleep. restless sleeper, to BR 2x/pm, dry mouth in a.m. Minutes professional time spent providing care.: 30 min Procedures 1 Individual (1) Education /mercedes/ KHARI MCMANUS MARKETING AREA MANAGER Signed: 12/23/2024 13:07 12/23/2024 ADDENDUM STATUS: COMPLETED Telehealth Informed Consent: Visit conducted by synchronous video telehealth. Patient verbal consent obtained. Location and emergency point of contact and/or number confirmed. Matthews verbalized consent for this CVT visit: Yes /KHARI Allred MARKETING AREA MANAGER Signed: 12/23/2024 13:09 CALEB MCPHERSON [facility] ([id number])
--- NOTE | 2024-12-27 09:40 | MHC.OFFVISWM ---
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 [facility] Allergies No Known Allergies Allergy (Verified 12/27/24 09:40) Medication List - Last Reconciled 12/27/24 by Leobardo Latham MD acetaminophen 1,000 mg (2 x 500 mg) PO Q6H PRN albuterol sulfate 90 mcg/actuation 2 puffs inhalation Q6H PRN amitriptyline 10 - 20 mg (1 - 2 x 10 mg) PO BEDTIME 30 days sertraline 25 mg PO DAILY ubrogepant (Ubrelvy) 50 - 100 mg (0.5 - 1 x 100 mg) PO ONCE PRN 30 days MDD 2 tabs HPI HPI TV PRESIDENTIAL SUPPORT SPECIALIST MWL: Details: Start time: 9.35am, End time: 10.10am ?I spent 30 minutes speaking with the patient on the phone plus an additional 5 minutes reviewing and updating records for a total of 35 minutes HPI Comments Details: Previous weight loss efforts: [facility] program x2, Keto diet, exercise Wakes up: 6.15am, Sleeps: 11pm Breakfast: skips Lunch: 11am (sandwich, rice) Dinner: 6pm (rice, pasta, fish, steak, chicken) Snacks: 2-3pm (cookies, oreos), 8pm (ice cream, cookies) Exercise: Has home treadmill and stairmaster Fluids: Coffee: (2-4/d with creamer and sugar), tea: none, soda: none, juice: none, ETOH: 2-3/wk (wine: 2 glasses) [facility] Medical History (Updated 12/27/24 @ 09:43 by Leobardo Latham MD) Asthma Morbid obesity Ankle sprain Vasectomy evaluation Anxiety about health Laceration of left thumb Headache Chronic migraine without aura COVID-19 virus infection Viral infection Ear pain, right Otitis media, right Daytime sleepiness Pharyngitis Otitis media Upper respiratory tract infection SOB (shortness of breath) Left carotid bruit Chest pain Puncture wound of finger of left hand IBS (irritable bowel syndrome) Lumbar disc disease Plantar fasciitis, bilateral Sciatic leg pain Tinnitus PTSD (post-traumatic stress disorder) Generalized anxiety disorder Obesity (BMI 30-39.9) Surgical History H/O vasectomy Family History Mother No problems noted. Father No problems noted. Daughter No problems noted. Son No problems noted. Daughter No problems noted. Brother No problems noted. Sister No problems noted. Sister No problems noted. Other Lupus Mental health disorder Social History (Updated 12/22/24 @ 09:44 by Ciera Oglesby CMA) Housing: House Alcohol intake: current Alcohol intake frequency: a few times a week Comment: 3x a week 2 drinks Patient Tobacco Use Status: Never used Tobacco e-Cigarette/Vaping Use: Never Used Second Hand Smoke Exposure: No service: Yes Current occupational status: employed Cognitive needs: No Hearing needs: No Vision needs: Yes Telehealth Telehealth Telehealth Platform: Telephone Location of provider rendering services: practice address Location of patient: address on file Patient Identification confirmed using: Name, : Yes Telehealth method: voice only Patient verbally consented to treatment: Yes Patient verbally consented to billing insurance company: Yes Patient informed of any privacy concerns related to visit: Yes Minutes spent on Phone/Video with Pt.: 35 Assessment & Plan Assessment & Plan (1) Morbid obesity: Code(s): E66.01 - Morbid (severe) obesity due to excess calories Category: Medical Plan: We discussed in detail the available therapeutic options: 1) his insurance requires participation in our lifestyle intervention program for 6 months before use of anti-obesity medications is considered. We discussed about the use of our [employer] software kate for the meal and exercise plan. 2) We also discussed about the?? lap sleeve gastrectomy. I emphasized the importance of close follow-up, adherence to instructions and good communication. The surgery does not replace the need to change your lifestlyle which is the cause of the obesity problem. The surgery provides the motivation to try again to change your lifestyle, it reduces the appetite and make the transition to a better lifestyle easier and doubles the amount of weight you would lose compared to doing the lifestyle change without the surgery. You will need to be on a liquid diet with protein shakes for 2 weeks before surgery to maximize weight loss and boost your nutritional status to recover better from surgery and also for the first two weeks after surgery to let the stomach heal before we introduce other foods. After the first 2 weeks we will introduce protein bars and soft foods like scrambled eggs, cottage cheese and yogurt and after the 6th week will introduce meat, fish and cooked vegetables in small amounts. Over time you should be able to eat everything in small amounts. Side effects like nausea, vomiting, heartburn or abdominal pain are not common in the practice unless you are not following in the practice. This operation requires lifetime commitment to following in our practice and communication with me. You will much less weight and experience side effects if you don?t communicate or not following in the practice. Complications are rare and in our practice is about 1/10 of the national average. The patient will consider these options and get back to me with his decision.
[2024-12-27 10:04] VITALS: BMI 40.0
== END 2024-12-27 10:11 | disposition home or self-care (01) ==
LOC: HO.HBS 08:03
PROVIDERS: PCP Internal Medicine; Visit Provider Surgery
DX: E66.813 Obesity, class 3 (principal); Z68.41 Body mass index [BMI] 40.0-44.9, adult
CPT/HCPCS: 98013

== ENCOUNTER 2025-01-03 08:47 | Outpatient (REF) | payer BC, SELFPAY ==
--- OUTSIDE RECORDS SUMMARY | 2025-01-03 08:51 | XMS_ITS | Patient Health Record ---
Author Organization [facility] Address [address] [address] Care Team Providers Care Casing Material Weigher Name Role Phone Nena Ortiz Primary Care Provider Allergies No Known Allergies Results Component Value Reference Range Notes IRON, TIBC AND FERRITIN PANE L Reviewed date:12/28/2024 08:04:32 AM Interpretation: Performing Lab:NL1, [email or web address] [id number] [place], [place] [address] Shayan Cannon M.D. Notes/Report: FASTING:YES SPECIALIZED COLLECTION. PATIENT REFERRED TO ALTERNATE SITE. FASTING: YES IRON, TOTAL 93 50-180 mcg/dL IRON BINDING CAPACITY 235 250-425 mcg/dL (juan jose c) % SATURATION 40 20-48 % (calc) FERRITIN 149 38-380 ng/mL COMPREHENSIVE METABOLIC PANE L Reviewed date:12/28/2024 08:04:32 AM Interpretation: Performing Lab:NL1, [email or web address] [place], [place] [address] Shayan Cannon M.D. Notes/Report: FASTING:YES SPECIALIZED COLLECTION. PATIENT REFERRED TO ALTERNATE SITE. FASTING: YES GLUCOSE 93 65-99 mg/dL Fasting reference interval UREA NITROGEN (BUN) 14 7-25 mg/dL CREATININE 1.09 0.60-1.26 mg/dL EGFR 91 > OR = 60 mL/min/1.73m2 BUN/CREATININE RATIO SEE NOTE: 6-22 (calc) Not Reported: BUN and Creatinine are within reference range. SODIUM 137 135-146 mmol/L POTASSIUM 3.9 3.5-5.3 mmol/L CHLORIDE 104 98-110 mmol/L CARBON DIOXIDE 27 20-32 mmol/L CALCIUM 9.6 8.6-10.3 mg/dL PROTEIN, TOTAL 7.2 6.1-8.1 g/dL ALBUMIN 4.7 3.6-5.1 g/dL GLOBULIN 2.5 1.9-3.7 g/dL (calc) ALBUMIN/GLOBULIN RATIO 1.9 1.0-2.5 (calc) BILIRUBIN, TOTAL 0.9 0.2-1.2 mg/dL ALKALINE PHOSPHATASE 42 36-130 U/L AST 24 10-40 U/L ALT 24 9-46 U/L URINALYSIS, COMPLETE W/REFLE X TO CULTURE Reviewed date:12/28/2024 08:04:32 AM Interpretation: Performing Lab:1, [facility] [place] [id number] Shayan Cannon M.D. Notes/Report: FASTING:YES SPECIALIZED COLLECTION. PATIENT REFERRED TO ALTERNATE SITE. FASTING: YES COLOR YELLOW YELLOW APPEARANCE CLEAR CLEAR SPECIFIC GRAVITY 1.026 1.001-1.035 PH 6.5 5.0-8.0 GLUCOSE NEGATIVE NEGATIVE BILIRUBIN NEGATIVE NEGATIVE [...] NO C ULTURE INDICATED C-REACTIVE PROTEIN Reviewed date:12/28/2024 08:04:32 AM Interpretation: Performing Lab:[facility] [place] [id number] Shayan Cannon M.D. Notes/Report: FASTING:YES SPECIALIZED COLLECTION. PATIENT REFERRED TO ALTERNATE SITE. FASTING: YES C-REACTIVE PROTEIN <3.0 <8.0 mg/L URINE CYTOLOGY Reviewed date:12/28/2024 08:04:32 AM Interpretation: Performing Lab:[facility] [place] [id number] Shayan Cannon M.D. Notes/Report: SCREENER KF, CT(ASCP) CT screening location: [place] [address] PATHOLOGIST Marion Farrell M.D., Board Certified in Anatomic and Clinical Pathology (electronic signature) A SOURCE Urine A PROCEDURE Cytology A GROSS DESCRIPTION The name on the container is in agreement with the requisition. 50 ml of clear, dark yellow fluid, received in Cytolyt fixative and processed by the ThinPrep method. (DC)12/23/2024 Gross exam(s) performed at: [facility] [address] [address] Business Operations Consultant: SHAYAN CANNON MD A DIAGNOSIS NEGATIVE FOR HIGH-GRADE UROTHELIAL CARCINOMA. - BENIGN UROTHELIAL AND SQUAMOUS CELLS PRESENT. Red blood cells present. Acute inflammation present. CLIENT EDUCATION TRACKING Reviewed date:11/28/2024 09:26:19 AM Interpretation: Performing Lab:[facility] [place], [place] [address] Shayan Cannon M.D. Notes/Report: FASTING: NO CLIENT EDUCATION TRACKING The Requisition we received did not include a [employer] account number. To prevent delays in testing and processing of your orders please provide the following information with every order submitted: [email or web address] account number and account name Client address Client phone and fax number NPI number of ordering physician along with the physician name. TSH+FREE T4 Reviewed date:11/13/2024 09:17:35 PM Interpretation: Performing Lab:[facility] [address] Shayan Cannon M.D. Notes/Report: TSH 5.55 0.40-4.50 mIU/L T4, FREE 1.1 0.8-1.8 ng/dL URINE CYTOLOGY Reviewed date:11/28/2024 09:26:19 AM Interpretation: Performing Lab:[facility] [address] Shayan Cannon M.D. Notes/Report: SCREENER ALICIAM, CT(ASCP) CT screening location: [place] [address] PATHOLOGIST Néstor Diaz M.D., Board Certified in Anatomic Pathology, Clinical Pathology and Cytopathology (electronic signature) A SOURCE Urine A PROCEDURE Cytology A GROSS DESCRIPTION The name on the container is in agreement with the requisition. 50 ml of clear, pale yellow fluid, received in Cytolyt fixative and processed by the ThinPrep method. (DC)11/16/2024 Gross exam(s) performed at: [facility] [address] [place] [address] Business Operations Consultant: SHAYAN CANNON MD A DIAGNOSIS NEGATIVE FOR HIGH-GRADE UROTHELIAL CARCINOMA. - BENIGN UROTHELIAL AND SQUAMOUS CELLS PRESENT. QUESTASSURED 25-OH VIT D, (D 2,D3), LC/MS/MS Reviewed date:11/13/2024 09:17:35 PM Interpretation: Performing Lab:[facility], [facility] [address] Shayan Cannon M.D. Notes/Report: VITAMIN D,25-OH,TOTAL,IA 28 30-100 ng/mL Vitamin D Status 25-OH Vitamin D: Deficiency: <20 ng/mL Insufficiency: 20 - 29 ng/mL Optimal: > or = 30 ng/mL For 25-OH Vitamin D testing on patients on D2-supplementation and patients for whom quantitation of D2 and D3 fractions is required, the QuestAssureD(TM) 25-OH VIT D, (D2,D3), LC/MS/MS is recommended: order code 56499 (patients >2yrs). See Note 1 Note 1 For additional information, please refer to http://education.[employer]/faq/ZPC438 (This link is being provided for informational/ educational purposes only.) VITAMIN B12 Reviewed date:11/13/2024 09:17:35 PM Interpretation: Performing Lab:[facility], [facility] [address] Shayan Cannon M.D. Notes/Report: VITAMIN B12 986 837-7518 pg/mL HEMOGLOBIN A1c Reviewed date:11/13/2024 09:17:35 PM Interpretation: Performing Lab:[facility], [facility] [address] Shayan Cannon M.D. Notes/Report: HEMOGLOBIN A1c 5.5 <5.7 [...] diagnosis of diabetes in children. According to [place] Diabetes Association (ADA) guidelines, hemoglobin A1c <7.0% represents optimal control in non- diabetic patients. Different metrics may apply to specific patient populations. Standards of Medical Care in Diabetes(ADA). C-REACTIVE PROTEIN Reviewed date:11/13/2024 09:17:35 PM Interpretation: Performing Lab:[facility] [address] Shayan Cannon M.D. Notes/Report: C-REACTIVE PROTEIN 9.7 <8.0 mg/L URINALYSIS, COMPLETE W/REFLE X TO CULTURE Reviewed date:11/13/2024 09:17:35 PM Interpretation: Performing Lab:[facility] [address] Shayan Cannon M.D. Notes/Report: COLOR YELLOW YELLOW APPEARANCE [...] REFLEXIVE URINE CULTURE NO C ULTURE INDICATED CBC (INCLUDES DIFF/PLT) Reviewed date:11/13/2024 09:17:35 PM Interpretation: Performing Lab:[facility] [address] Shayan Cannon M.D. Notes/Report: WHITE BLOOD CELL COUNT [...] MPV 10.0 7.5-12.5 fL ABSOLUTE NEUTROPHILS 2865 9880-4086 cells/uL ABSOLUTE LYMPHOCYTES 0135 644-6783 cells/uL ABSOLUTE MONOCYTES 458 200-950 cells/uL ABSOLUTE EOSINOPHILS 276 15-500 cells/uL ABSOLUTE BASOPHILS 31 0-200 cells/uL NEUTROPHILS 55.1 LYMPHOCYTES 30.2 MONOCYTES 8.8 EOSINOPHILS 5.3 BASOPHILS 0.6 COMPREHENSIVE METABOLIC PANE L Reviewed date:11/13/2024 09:17:35 PM Interpretation: Performing Lab:NL1, [email or web address] [id number] [place], [place] [address] Shayan Cannon M.D. Notes/Report: GLUCOSE 96 65-99 mg/dL [...] 20 10-40 U/L ALT 25 9-46 U/L LIPID PANEL WITH REFLEX TO D IRECT LDL Reviewed date:11/13/2024 09:17:35 PM Interpretation: Performing Lab:[facility] [address] Shayan Cannon M.D. Notes/Report: CHOLESTEROL, TOTAL 132 <200 mg/dL HDL CHOLESTEROL 30 > OR = 40 mg/dL TRIGLYCERIDES 180 <150 mg/dL LDL-CHOLESTEROL 74 Reference range: <100 Desirable range <100 mg/dL for primary prevention; <70 mg/dL for patients with CHD or diabetic patients with > or = 2 CHD risk factors. LDL-C is now calculated using the Sim calculation, which is a validated novel method providing better accuracy than the Friedewald equation in the estimation of LDL-C. Pradip CARDENAS et al. BOBBI. 2013;310(19): 3091-1826 (http://education.[employer]/faq/HDP981) CHOL/HDLC RATIO 4.4 <5.0 (calc) NON HDL CHOLESTEROL 102 <130 mg/dL (calc) For patients with diabetes plus 1 major ASCVD risk factor, treating to a non-HDL-C goal of <100 mg/dL (LDL-C of <70 mg/dL) is considered a therapeutic option. IRON, TIBC AND FERRITIN PANE L Reviewed date:11/13/2024 09:17:35 PM Interpretation: Performing Lab:[facility] [address] Shayan Cannon M.D. Notes/Report: IRON, TOTAL 55 50-180 mcg/dL IRON BINDING CAPACITY 244 250-425 mcg/dL (juan jose c) % SATURATION 23 20-48 % (calc) FERRITIN 109 38-380 ng/mL URINALYSIS, COMPLETE W/REFLE X TO CULTURE Reviewed date:11/28/2024 09:26:19 AM Interpretation: Performing Lab:[facility] [address] Shayan Cannon M.D. Notes/Report: FASTING: NO COLOR YELLOW [...] REFLEXIVE URINE CULTURE NO C ULTURE INDICATED TSH W/REFLEX TO FT4 Reviewed date:12/28/2024 08:04:32 AM Interpretation: Performing Lab:NL1, [facility] [address] Shayan Cannon M.D. Notes/Report: FASTING:YES SPECIALIZED COLLECTION. PATIENT REFERRED TO ALTERNATE SITE. FASTING: YES TSH W/REFLEX TO FT4 3.20 0.40-4.50 mIU/L CBC (INCLUDES DIFF/PLT) Reviewed date:12/28/2024 08:04:32 AM Interpretation: Performing Lab:NL1, [facility] [address] Shayan Cannon M.D. Notes/Report: FASTING:YES SPECIALIZED COLLECTION. PATIENT REFERRED TO ALTERNATE SITE. FASTING: YES WHITE BLOOD CELL COUNT 5.1 3.8-10.8 Thousand/ uL RED BLOOD CELL COUNT 5.35 4.20-5.80 Million/uL HEMOGLOBIN 14.2 13.2-17.1 g/dL HEMATOCRIT 43.8 38.5-50.0 % MCV 81.9 80.0-100.0 fL MCH 26.5 27.0-33.0 pg MCHC 32.4 32.0-36.0 g/dL For adults, a slight decrease in the calculated MCHC value (in the range of 30 to 32 g/dL) is most likely not clinically significant; however, it should be interpreted with caution in correlation with other red cell parameters and the patient's clinical condition. RDW 13.4 11.0-15.0 % PLATELET COUNT 281 140-400 Thousand/uL MPV 9.8 7.5-12.5 fL ABSOLUTE NEUTROPHILS 2672 5770-2770 cells/uL ABSOLUTE LYMPHOCYTES 1937 691-0896 cells/uL ABSOLUTE MONOCYTES 459 200-950 cells/uL ABSOLUTE EOSINOPHILS 128 15-500 cells/uL ABSOLUTE BASOPHILS 61 0-200 cells/uL NEUTROPHILS 52.4 LYMPHOCYTES 34.9 MONOCYTES 9.0 EOSINOPHILS 2.5 BASOPHILS 1.2 Reason For Referral Reason P with flank [...] Duration) Notes Start Date End Date Status Meloxicam 15 MG 1 tablet Orally Once a day for 30 day(s) 12/20/2024 01/19/2025 Active Oseltamivir Phosphate 75 MG TAKE 1 CAPSU LE BY MOUTH TWICE A DAY FOR 5 DAYS Oral for 5 Days Active Meloxicam 15 MG TAKE 1 TABLET BY AIDAN TH EVERY DAY Oral for 30 Days Active Cyclobenzaprine HCl 5 MG TAKE 1 TABLET B Y MOUTH EVERYDAY AT BEDTIME Oral for 20 Days Active Albuterol Sulfate HFA 108 (90 Base) MCG/ACT INHALE 2 PUFFS EVERY 6 HOURS NEEDED FOR SHORTNESS OF BREATH OR WHEEZING Inhalation for 20 Days Active Ubrelvy 100 MG TAKE 1/2-1 TABLET ON CE NEEDED AT ONSET OF MIGRAINE. MAY REPEAT IN 2 HOURS UP TO MAX 2 TABS/DAY Oral for 30 Days Active Rizatriptan Benzoate [...] Problem Status W/U Status Risk Notes Problem 99767508 Vitamin D deficiency (E55.9) Active confirmed Problem Mood disorder (19847681) Mood disorder (F39) Active confirmed Problem 42219236 Kidney stones (N20.0) Active confirmed Problem 415819208 Fatty liver (K76.0) Active confirmed Problem 949295758 Acquired hypothyroidism (E03.9) Active confirmed Problem 786398912 Mild intermitten t asthma without complication (J45.20) Active confirmed Problem 477302870892421 CRP elevated (R79.82) Active confirmed Problem 08018464 Hypertension, unspecified type (I10) Active confirmed Problem 40004812 Other migraine without status migrainosus, not intractable (G43.809) Active confirmed Vital Signs Heart Rate 90 /min 12/20/2024 Respiratory Rate 15 /min 09/17/2024 Oximetry 98 % 09/17/2024 Blood pressure diastolic 81 mm Hg 12/20/2024 Height 71 in 12/20/2024 Blood pressure systolic 138 mm Hg 12/20/2024 Weight 277 lbs 12/20/2024 BMI 38.63 kg/m2 12/20/2024 Procedures Procedure Date Ordered Date Performed Result Body Sit e Physical Therapy- Evaluate and Treat 08/10/2024 N/A Encounters Encounter Location Date Provider Diagnosis [facility] [address] [place] [id number]/10/2024 Nena Ortiz Hypertension, unspecified type I10 [facility] [address] [place] [address]/17/2024 Nena Ortiz Encounter for genera l adult medical examination with abnormal findings Z00.01 ; Hypertension, unspecified type I10 ; Left foot pain M79.672 and Other migraine without status migrainosus, not intractable G43.809 [facility] [address] [place] [address]/15/2024 Nena Ortiz Left foot pain M79.6 72 and Left lateral ankle pain M25.572 [facility] [address] [place] [address]/18/2024 Nena Ortiz Flank pain R10.9 ; Fatty liver K76.0 and Frequent urination R35.0 [facility] [address] [place] [address]/20/2024 Nena Diana Kidney stones N20.0 ; CRP elevated R79.82 and Acquired hypothyroidism E03.9 [facility] [address] [place] [address] 11/23/2024 Nena [facility] [address] [place] [address] 12/27/2024 Nena Barrett Md [address] [place] [address] 08/10/2024 Nena [facility] [address] [place] [address] 08/10/2024 Nena Barrett Md [address] [place] [address] 11/16/2024 Nena Barrett Md [address] [place] [address] 11/20/2024 Nena Barrett Md [address] [place] [address] 11/20/2024 Nena Barrett Md [address] [place] [address] 11/24/2024 Nena Diana Assessments Encounter Date Diagnosis (ICD Code) Assessment Notes Treatment Notes Treatment Clinical Notes Section Notes 12/20/2024 CRP elevated (ICD-10 - R79.82) waiting for MRI ankle with ortho P remains out of work due to pain 11/18/2024 Fatty liver (ICD-10 - K76.0) 11/18/2024 Flank pain (ICD-10 - R10.9) No acute abdomen but p aware to call back in sx worsen U/A no infection prliminar but calcium stones debris ? kidney stones 12/20/2024 Kidney stones (ICD-10 - N20.0) p will see urology and use pain med only as needed andno driving due to sedation Call back if fever, nausea and vomiting, or if symptoms do not improve in 48-72 hours Call for problems with medication, side effects or need for dosage change Call if worse or not better or go to ER 10/15/2024 Left foot pain (ICD-10 - M79.672) will proceed w MRI with prtho for further recd . Remaisn out of work to prevent permanent injury 10/15/2024 Left lateral ankle pain (ICD-10 - M25.572) 09/17/2024 Encounter for general adult medical examination [...] will see cardiology next for baseline eval 08/10/2024 Hypertension, unspecified type (ICD-10 - I10) Patient's blood pressures are mildly elevated. Recommend to continue with same medication(s) at the present time, but will monitor closely and if persistently elevated I will further increase the medication(s). Weight loss recommended 09/17/2024 Left foot pain (ICD-10 - M79.672) [...] Ibuprofen every 3-4 hours alternating with Tylenol 11/18/2024 Frequent urination (ICD-10 - R35.0) 12/20/2024 Acquired hypothyroidism (ICD-10 - E03.9) 09/17/2024 Other migraine without status migrainosus, not intractable (ICD-10 - G43.809) Well controlled on current therapy, continue present regimen 09/17/2024 Other Weight loss recommended Plan Of Treatment Pending Test Test Name Order Date Ultrasound : Pelvis 11/18/2024 X ray : Abdomen, Kidneys, Ureters, and B ladder (KUB) 11/18/2024 Urine Cytology 12/20/2024 Urine Cytology 11/18/2024 Urine Cytology 10/15/2024 Urine Cytology 09/17/2024 X ray : LS Spine 11/18/2024 Ultrasound [...] 2023 CBC (H/H, RBC, INDICES, WBC, PLT) 2024 URINALYSIS, COMPLETE W/REFLEX TO CULTURE 10/15/2024 URINALYSIS, COMPLETE W/REFLEX TO CULTURE 09/17/2024 C-REACTIVE PROTEIN 10/15/2024 HEMOGLOBIN A1c 09/17/2024 HEMOGLOBIN A1c 10/15/2024 VITAMIN B12 10/15/2024 VITAMIN B12 09/17/2024 VITAMIN D, 1,25 DIHYDROXY LC/MS/MS 10/15 Physical Therapy- Evaluate and Treat TSH+FREE T4 09/17/2024 TSH+FREE T4 12/20/2024 TSH+FREE T4 10/15/2024 Next Appt Details Provider Name:Nena Schwab Roberta huston, 01/11/2025 09:15:00 AM, [address], [address], Insurance Providers Payer Name Payer Address Payer Phone Subscriber Number Group Number Insured Name Patient Relationship to Insured Coverage Start Date Coverage End Date Blue [employer] and Blue [facility] [address] [place] [address] [id number] Thuan Nguyen Self - patient is the insured Medical (General) History Medical History History ICD Code Mild intermittent asthma without complic ation J45.20 Other migraine without status migrainosu s, not intractable G43.809 Mood disorder F39
--- OUTSIDE RECORDS SUMMARY | 2025-01-03 08:51 | XMS_ITS ---
Author Organization [facility] Address [address] [place] [address] Care Team Providers Care Stockroom Helper Name Role Phone Nena Ortiz Primary Care Provider [phone] REASON FOR VISIT Labs Encounters Encounter Location Date Provider Diagnosis [facility] [address] [facility] [address] [place] [address] 12/27/2024 Nena Ortiz Plan Of Treatment Next Appt Details Provider Name:Nena huston, 01/11/2025 09:15:00 AM, [address], [facility], [place], [address], Progress Notes * Lara ALLENOB:1990 (34 yo M)Acc No.[id number]:12/27/2024 Patient:?Thuan ALLEN :1990???Age:34 Y???Sex:Male Address:[facility] [place], [address] * * Date:?
--- OUTSIDE RECORDS SUMMARY | 2025-01-03 08:51 | XMS_ITS | Clinical Summary ---
Author Organization [facility] it Address [address] [place] [address] Care Team Providers Care Automatic Vulcanizing Lead Operator Name Role Phone Rosamaria Sam MD Primary Care Provider [phone] Immunizations Name Administration Dates Next Due Pfizer [...] Td or Tdap) 09/17/2023 09/17/2013 COVID-19 Vaccine (3 - 2023-2 5 season) [...] age to complete this topic Care Teams Automatic Vulcanizing Lead Operator Relationship Specialty Start Date End Date Rosamaria Sam MD [address] [place] [address] Dr [address] [facility] [place] [address] PCP - General 07/03/24
--- OUTSIDE RECORDS SUMMARY | 2025-01-03 08:51 | XMS_ITS | Data Portability ---
Author Organization [facility] Shayan Sánchez AONE [place] Address [address] [place] [address] Care Team Providers Care Palletizer Operator Name Role Phone CITLALI KENNEY Primary Care Provider CITLALI KENNEY Referring Provider SABA KWOK Junior Technical Writer Assessment Encounter Date Assessment Date Assessment LastModified [...] physical examination, tests/diagnostic imaging, and treatment plan [email or web address] Not available 10/28/2024 09:40:50 12/23/2024 12/23/2024 I [...] ankle, 3 or more view 2023 024 [email or web address] [facility], [address], [place], [address], 10/28/2024 10:36:43 XR, foot, 2 view 2023 024 [email or web address] [facility], [address], [place], [address], 10/28/2024 10:36:43 MRI, foot, w/o contrast - Rule out edema in the fourth and fifth metatarsa ls, rule out occult fracture, work injury 4 months ago, failed conservat vaughn care 2023 024 [facility] Not available 12/06/2024 15:29:06 Medication Orders None recorded. Patient TargetsNo targets recorded. Patient Instructions Encounter Date Encounter Id Patient Instructions Last Modified By Organization Details Last Modified Time 10/28/2024 [id number] Weightbearing x-rays of the left foot and ankle were obtained on 10/28/2024 which is negative for acute fracture. No evidence of periosteal stress reaction. No widening of the Lisfranc complex. [email or web address] Not available 10/28/2024 09:41:08 12/23/2024 [id number] Weightbearing x-rays of the left foot and ankle were obtained on 10/28/2024 which is negative for acute fracture. No evidence of periosteal stress reaction. No widening of the Lisfranc complex. [email or web address] Not available 11/25/2024 08:29:38 Reason for Referral [...] Organization Details Recorded Time Strain of foot 13524630481 Active 025 Almita Thompson MD [address], [place], [address] , [place] [facility], P 10:20:55 Problem Notes None recorded. Procedures [...] Updated DateTime 10/28/2024 180.34 cm 39.1 kg/m2 840905.86 g ADAMA STEINBERG PA-C [address], [place], [address], [place] [facility], 10/28/2024 09:28:58 Date Recorded Body height Body mass index (BMI) Body weight Provider Name and Address Organization Details Last Updated DateTime 12/23/2024 180.34 cm 39.1 kg/m2 505641.[address] [place] [facility] 12/23/2024 09:50:01 Social History None recorded. Functional Status None recorded. Mental Status None recorded. Family History Nothing Reported. Medical History No medical history recorded. Past Encounters Encounter ID Performer Location Encounter Start Date Encounter Closed Date Diagnosis/Indication Diagnosis SNOMED-CT Code Diagnosis ICD10 Code Diagnosis Note [id number] Almtia Thompson MD [address] [address] 10/28/2024 09:05:04 10/28/2024 09:52:11 Ankle pain 792535746 M25.572 Pain in left foot 796326 5189 25229 M79.672 [id number] Almita Thompson MD [address] [address] 12/23/2024 09:48:32 12/23/2024 10:25:26 Strain of foot 0876981936 9 S96.912D Health Concerns Section Related Observation LastModified by Organization Detai ls LastModified Time None Recorded Concern Status LastModified by Organization Details LastModified Time None Recorded Advance Directives Directive None Recorded Payers Encounter Date Sequence Insurance Name Policy Number Policy Gloria Covered Member ID Gloria Member ID Guarantor Name 10/28/2024 [employer] [id number] Francisca Nguyen 12/23/2024 [employer] [id number] Francisca Nguyen Notes Date Note [...] no medical history. 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 He drinks about 4 alcoholic drinks per week. ADAMA STEINBERG PA-C [address], [place], [address], [place] [facility] 10/28/2024 09:42:03 12/23/2024 text/html Date of [...] no medical history. 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 He drinks about 4 alcoholic drinks per week. Almita Thompson MD [address], [place], [address], [place] [facility] 12/26/2024 19:04:57
--- OUTSIDE RECORDS SUMMARY | 2025-01-03 08:51 | XMS_ITS | Clinical Summary ---
Author Organization [facility] Address [address] [place] [address] Care Team Providers Care Solvent Plant Operator Name Role Phone Rosamaria Sam MD Primary Care Provider [phone] Allergies No known active allergies Medications No [...] age to complete this topic Care Teams Solvent Plant Operator Relationship Specialty Start Date End Date Flaco, Rosamaria Jerome MD [address] [place] [address] [address] [facility] [place] [address] PCP - General Internal Medicine 07/03/24
--- OUTSIDE RECORDS SUMMARY | 2025-01-03 08:51 | XMS_ITS ---
Author Organization [facility] Address [address] [address] Care Team Providers Care Hedis Review Nurse Name Role Phone Nena Ortiz Primary Care Provider Allergies No Known Allergies Results Component Value Reference Range Notes IRON, TIBC AND FERRITIN PANE L Reviewed date:12/28/2024 08:04:32 AM Interpretation: Performing Lab:NL1, [facility] [id number] [place], [place] [id number] Shayan Solis M.D. Notes/Report: FASTING:YES SPECIALIZED COLLECTION. PATIENT REFERRED TO ALTERNATE SITE. FASTING: YES IRON, TOTAL 93 50-180 mcg/dL IRON BINDING CAPACITY 235 250-425 mcg/dL (juan jose c) % SATURATION 40 20-48 % (calc) FERRITIN 149 38-380 ng/mL COMPREHENSIVE METABOLIC PANE L Reviewed date:12/28/2024 08:04:32 AM Interpretation: Performing Lab:NL1, [facility] [id number] [place], [place] [id number] Shayan Solis M.D. Notes/Report: FASTING:YES SPECIALIZED COLLECTION. PATIENT REFERRED [...] CULTURE Reviewed date:12/28/2024 08:04:32 AM Interpretation: Performing Lab:NL1, [facility] [address] Shayan Solis M.D. Notes/Report: FASTING:YES SPECIALIZED COLLECTION. PATIENT REFERRED [...] PROTEIN Reviewed date:12/28/2024 08:04:32 AM Interpretation: Performing Lab:1, [facility] [address] Shayan Solis M.D. Notes/Report: FASTING:YES SPECIALIZED COLLECTION. PATIENT REFERRED TO ALTERNATE SITE. FASTING: YES C-REACTIVE PROTEIN <3.0 <8.0 mg/L REASON FOR VISIT 1 month f/u Medications Medication SIG (Take, Route, Frequency, Duration) Notes Start Date End Date Status oxyCODONE-Acetaminophen 5-325 MG 1 tablet as needed Orally every 12 hrs for 7 days Partial Fill upon Patient Request 12/20/2024 12/27/2024 Active Meloxicam 15 MG 1 tablet Orally Once a day for 30 day(s) 12/20/2024 01/19/2025 Active Meloxicam 15 MG TAKE 1 TABLET BY MOUTH EVERY DAY Oral for 30 Days Active Cyclobenzaprine HCl 5 MG TAKE 1 TABLET BY MOUTH EVERYDAY AT BEDTIME Oral for 20 Days Active Albuterol Sulfate HFA 108 (90 Base) MCG/ACT INHALE 2 PUFFS EVERY 6 HOURS NEEDED FOR SHORTNESS OF BREATH OR WHEEZING Inhalation for 20 Days Active Oseltamivir Phosphate 75 MG TAKE 1 CAPSULE BY MOUTH TWICE A DAY FOR 5 DAYS Oral for 5 Days Active Ubrelvy 100 MG TAKE 1/2-1 TABLET ONCE NEEDED AT ONSET OF MIGRAINE. MAY REPEAT IN 2 HOURS UP TO MAX 2 TABS/DAY Oral for 30 Days Active Rizatriptan Benzoate 10 MG PLEASE SEE ATTACHED FOR DETAILED DIRECTIONS Oral for 30 Days Active Sertraline HCl 25 MG Oral for 60 Days Active Problems Problem Type SNOMED Code ICD Code Onset Dates Problem Status W/U Status Risk Notes Problem 04533002 Kidney stones (N20.0) Active confirmed Problem 184061277012445 CRP elevated (R79.82) Active confirmed Vital Signs Heart Rate 90 /min 12/20/2024 Blood pressure systolic 138 mm Hg 12/20/19 25 Blood pressure diastolic 81 mm Hg 025 Height 71 in 12/20/2024 Weight 277 lbs 12/20/2024 BMI 38.63 kg/m2 12/20/2024 Encounters Encounter Location Date Provider Diagnosis [facility] [address] [address] 12/20/2024 Nena Ortiz Kidney stones N20.0 ; CRP elevated R79.82 and Acquired hypothyroidism E03.9 Assessments Encounter Date Diagnosis (ICD Code) Assessment Notes Treatment Notes Treatment Clinical Notes Section Notes 12/20/2024 Kidney stones (ICD-10 - N20.0) p will see urology and use pain med only as needed andno driving due to sedation Call back if fever, nausea and vomiting, or if symptoms do not improve in 48-72 hours Call for problems with medication, side effects or need for dosage change Call if worse or not better or go to ER 12/20/2024 CRP elevated (ICD-10 - R79.82) waiting for MRI ankle with ortho P remains out of work due to pain 12/20/2024 Acquired hypothyroidism (ICD-10 - E03.9) Plan Of Treatment Medication Medication Name Sig Start Date Stop Date Notes oxyCODONE-Acetaminophen 5-325 MG 1 tablet as needed Orally every 12 hrs for 7 days 12/20/2024 12/27/2024 Partial Fill upon Patient Request Meloxicam 15 MG 1 tablet Orally Once a day for 30 day(s) 12/20/2024 01/19/2025 Treatment Notes Assessment Notes Kidney stones p will see urology a nd use pain med only as needed andno driving due to sedation Call back if fever, nausea and vomiting, or if symptoms do not improve in 48-72 hours Call for problems with medication, side effects or need for dosage change Call if worse or not better or go to ER CRP elevated waiting for MRI ankl e with ortho P remains out of work due to pain Pending Test Test Name Order Date Urine Cytology 12/20/2024 CBC (H/H, RBC, INDICES, WBC, PLT) 2024 TSH+FREE T4 12/20/2024 Next Appt Details Follow Up: 4 Weeks, Reason: Provider Name:Nena huston, 01/11/2025 09:15:00 AM, 153 [facility], [address], [address], Progress Notes * Feliciano ALLENsDOB:1990 (34 yo M)Acc No.[id number]:12/20/2024 Progress Notes Patient:?Thuan ALLEN Provider:?Nena Ortiz MD :1990???Age:34 Y???Sex:Male Paxton e:12/20/2024 Address:[address] [place], [place] [phone] Subjective: * Chief Complaints: * ???1 month f/u * HPI: ???Constitutional:?P is a 33 y/o male here [place] 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 ???Patient Care Team:?Photo Intern:?Dr Jared Suarez.?Urologist:?Urology Deniz Ochoa MD.? * ROS:?General/Constitutional:?Denies?Chills.?Denies?Fatigue.?Denies?Fever.?Ophthalmologic:?Denies?Blurred vision.?Respiratory:?Denies?Breathing pattern.?Denies?Chest pain.?Denies?Cough.?Denies?Hemoptysis.?Denies?Pain with inspiration.?Denies?Shortness of breath.?Denies?Shortness of breath at rest.?Denies?Shortness of breath with exertion.?Denies?Sputum production.?Denies?Wheezing.?Cardiovascular:?Denies?Chest pain.?Denies?Chest pain at rest.?Gastrointestinal:?Denies?Abdominal pain.?Denies?Blood in stool.?Denies?Change in bowel habits.?Hematology:?Denies?Easy bruising.?Denies?Fever.?Genitourinary:?Denies?Pain in lower back.?Musculoskeletal:?Denies?Painful joints.?Podiatric:?Admits?Achilles swelling,?that is moderate, constant.?Admits?Ankle pain.?Neurologic:?Denies?Balance difficulty.?Denies?Coordination.?Denies?Difficulty speaking.?Denies?Dizziness.?Psychiatric:?Denies?Anxiety.?Denies?Depressed mood.?Admits?Stressors.?Denies?Substance abuse.?Denies?Suicidal thoughts.? * Medical History:? * Medications:?TakingCyclobenz aprine HCl 5 MG Tablet [...] Oral * Allergies:?N.K.D.A.no[Allerg ies Verified] Objective: * Vitals:?HR:90/min, BP:138/81 mm Hg, Ht: 71 in, Wt:277lbs, BMI:38.63Index, Ht-cm: 180.34, Wt-k.65. * Examination: ???General Examination: ?GENERAL APPEARANCE:?in no acute distress, well developed, well nourished.?HEAD:?normocephalic, atraumatic.?EYES:?pupils equal, round, reactive to light and accommodation.?EARS:?normal.?ORAL CAVITY:?mucosa moist.?THROAT:?clear.?NECK/THYROID:?neck supple, full range of motion, no cervical lymphadenopathy.?SKIN:?no suspicious lesions, warm and dry.?HEART:?no murmurs, regular rate and rhythm, S1, S2 normal.?LUNGS:?clear to auscultation bilaterally.?ABDOMEN:?normal, bowel sounds present, soft, nontender, nondistended.?EXTREMITIES:?no clubbing, cyanosis, or edema.?NEUROLOGIC:?nonfocal, motor strength normal upper and lower extremities, sensory exam intact.?PODIATRIC:?left ankle pain with motion or wt bearing.? Assessment: * Assessment: 1.?Kidney stones - N20.0 (Pr imary)???2.?CRP elevated - R79.82???3.?Acquired hypothyroidism - E03.9??? Plan: * Treatment: ? Value Reference Range ?GLUCOSE 93 65-99 - mg/dL * ?UREA NITROGEN (BUN) 14 7-2 5 - mg/dL * ?CREATININE 1.09 0.60-1.26 - mg/dL * ?BUN/CREATININE RATIO SEE NOTE: 6- 22 - (calc) * ?SODIUM 137 135-146 - mmol/ L * ?POTASSIUM 3.9 3.5-5.3 - mmo l/L * ?CHLORIDE 104 98-110 - mmol/ L * ?CARBON DIOXIDE 27 20-32 - mmol/L * ?CALCIUM 9.6 8.6-10.3 - mg/d L * ?PROTEIN, TOTAL 7.2 6.1-8.1 - g/dL * ?ALBUMIN 4.7 3.6-5.1 - g/dL * ?GLOBULIN 2.5 1.9-3.7 - g/dL (calc) * ?ALBUMIN/GLOBULIN RATIO 1.9 1.0-2.5 - (calc) * ?BILIRUBIN, TOTAL 0.9 0.2-1. 2 - mg/dL * ?ALKALINE PHOSPHATASE 42 36 -130 - U/L * ?AST 24 10-40 - U/L * ?ALT 24 9-46 - U/L * ?EGFR 91 > OR = 60 - mL/ min/1.73m2 * Nena Ortiz 12/28/2024 08:04:26 AM EST >This lab was reviewed by Nena Ortiz on 12/28/2024 at 08:04 AM EST ?LAB: C-REACTIVE PROTEIN* ? Value Reference Range ?C-REACTIVE PROTEIN <3.0 <8.0 - mg/L * Nena Ortiz 12/28/2024 08:04:26 AM EST >This lab was reviewed by Nena Ortiz on 12/28/2024 at 08:04 AM EST Notes: p will see urology and use pain med only as needed andno driving due to sedation Call back if fever, nausea and vomiting, or if symptoms do not improve in 48-72 hours Call for problems with medication, side effects or need for dosage change Call if worse or not better or go to ER??2.?CRP elevated?LAB: Urine Cytology ?LAB: IRON, TIBC AND FERRITIN PANEL* ? Value Reference Range ?IRON, TOTAL 93 50-180 - mc g/dL * ?IRON BINDING CAPACITY 235 L 2 50-425 - mcg/dL (calc) * ?% SATURATION 40 20-48 - % (calc) * ?FERRITIN 149 38-380 - ng/mL * Nena Ortiz 12/28/2024 08:04:26 AM EST >This lab was reviewed by Nena Ortiz on 12/28/2024 at 08:04 AM EST ?LAB: COMPREHENSIVE METABOLIC PANEL* ? Value Reference Range ?GLUCOSE 93 65-99 - mg/dL * ?UREA NITROGEN (BUN) 14 7-2 5 - mg/dL * ?CREATININE 1.09 0.60-1.26 - mg/dL * ?BUN/CREATININE RATIO SEE NOTE: 6- 22 - (calc) * ?SODIUM 137 135-146 - mmol/ L * ?POTASSIUM 3.9 3.5-5.3 - mmo l/L * ?CHLORIDE 104 98-110 - mmol/ L * ?CARBON DIOXIDE 27 20-32 - mmol/L * ?CALCIUM 9.6 8.6-10.3 - mg/d L * ?PROTEIN, TOTAL 7.2 6.1-8.1 - g/dL * ?ALBUMIN 4.7 3.6-5.1 - g/dL * ?GLOBULIN 2.5 1.9-3.7 - g/dL (calc) * ?ALBUMIN/GLOBULIN RATIO 1.9 1.0-2.5 - (calc) * ?BILIRUBIN, TOTAL 0.9 0.2-1. 2 - mg/dL * ?ALKALINE PHOSPHATASE 42 36 -130 - U/L * ?AST 24 10-40 - U/L * ?ALT 24 9-46 - U/L * ?EGFR 91 > OR = 60 - mL/ min/1.73m2 * Nena Ortiz 12/28/2024 08:04:26 AM EST >This lab was reviewed by Nena Ortiz on 12/28/2024 at 08:04 AM EST ?LAB: CBC (H/H, RBC, INDICES, WBC, PLT) ?LAB: URINALYSIS, COMPLETE W/REFLEX TO CULTURE* ? Value Reference Range ?LEUKOCYTE ESTERASE NEGATIVE NEGA TIVE - * ?NITRITE NEGATIVE NEGATIVE - * ?COLOR YELLOW YELLOW - * ?APPEARANCE CLEAR CLEAR - * ?BILIRUBIN NEGATIVE NEGATIVE - * ?KETONES NEGATIVE NEGATIVE - * ?SPECIFIC GRAVITY 1.026 1.001- 1.035 - * ?OCCULT BLOOD NEGATIVE NEGATIVE - * ?PH 6.5 5.0-8.0 - * ?PROTEIN NEGATIVE NEGATIVE - * ?WBC NONE SEEN * ?RBC NONE SEEN < OR = 2 - /HPF * ?SQUAMOUS EPITHELIAL CELLS NONE SEEN < OR = 5 - /HPF * ?BACTERIA NONE SEEN * ?HYALINE CAST NONE SEEN NONE SEEN - /LPF * ?GLUCOSE NEGATIVE NEGATIVE - * Nena Ortiz 12/28/2024 08:04:26 AM EST >This lab was reviewed by Nena Ortiz on 12/28/2024 at 08:04 AM EST ?LAB: C-REACTIVE PROTEIN* ? Value Reference Range ?C-REACTIVE PROTEIN <3.0 <8.0 - mg/L * Nena Ortiz 12/28/2024 08:04:26 AM EST >This lab was reviewed by Nena Ortiz on 12/28/2024 at 08:04 AM EST ?LAB: TSH+FREE T4 Notes: waiting for MRI ankle with ortho P remains out of work due to pain ?? 3.?Acquired hypothyroidism?LAB: Urine Cytology ?LAB: IRON, TIBC AND FERRITIN PANEL* ? Value Reference Range ?IRON, TOTAL 93 50-180 - mc g/dL * ?IRON BINDING CAPACITY 235 L 2 50-425 - mcg/dL (calc) * ?% SATURATION 40 20-48 - % (calc) * ?FERRITIN 149 38-380 - ng/mL * Nena Ortiz 12/28/2024 08:04:26 AM EST >This lab was reviewed by Nena Ortiz on 12/28/2024 at 08:04 AM EST ?LAB: CBC (H/H, RBC, INDICES, WBC, PLT) ?LAB: URINALYSIS, COMPLETE W/REFLEX TO CULTURE* ? Value Reference Range ?LEUKOCYTE ESTERASE NEGATIVE NEGA TIVE - * ?NITRITE NEGATIVE NEGATIVE - * ?COLOR YELLOW YELLOW - * ?APPEARANCE CLEAR CLEAR - * ?BILIRUBIN NEGATIVE NEGATIVE - * ?KETONES NEGATIVE NEGATIVE - * ?SPECIFIC GRAVITY 1.026 1.001- 1.035 - * ?OCCULT BLOOD NEGATIVE NEGATIVE - * ?PH 6.5 5.0-8.0 - * ?PROTEIN NEGATIVE NEGATIVE - * ?WBC NONE SEEN * ?RBC NONE SEEN < OR = 2 - /HPF * ?SQUAMOUS EPITHELIAL CELLS NONE SEEN < OR = 5 - /HPF * ?BACTERIA NONE SEEN * ?HYALINE CAST NONE SEEN NONE SEEN - /LPF * ?GLUCOSE NEGATIVE NEGATIVE - * Nena Ortiz 12/28/2024 08:04:26 AM EST >This lab was reviewed by Nena Ortiz on 12/28/2024 at 08:04 AM EST ?LAB: TSH+FREE T4 * Procedure Codes:? 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 Patient Care Team Photo Intern: Dr Jared Suarez Urologist: Urology Deniz perez MD Examination Category Sub-Category Detail Notes Category Not es General Examination GENERAL APPEARANCE: in no ac [place] distress, well developed, well nourished HEAD: normocephalic, [...] EXTREMITIES: no clubbing, cyanosi s, or edema ORAL CAVITY: mucosa moist PODIATRIC: left ankle pain with motion or wt bearing
--- OUTSIDE RECORDS SUMMARY | 2025-01-03 08:51 | XMS_ITS | Data Portability ---
Author Organization ZOH[facility] Perez [facility], [facility] Address [address] [place] [address] Care Team Providers Care Mechanical Engineering Professor Name Role Phone [facility] Primary Care Provider Assessment No assessment recorded. Plan of Treatment Reminders Order Date Submit Date Provider Last Modified By Organization Details Last Modified Time Details Appointments None recorded. Lab culture, respiratory 2022 023 [place] [facility], [address] [place] [address], [place], [address], 3 16:06:43 rapid flu (A+B) 2022 023 [place] [address], [address] [place] [address], [address], 3 16:46:11 rapid SARS CoV 2 Ag, QL IA, respiratory specimen 2022 023 [place] [address] [address], [address] [place] [address], [address], 3 16:46:11 rapid strep group A, throat 2022 023 [place] [address], [address] [place] [address], [address], 3 16:46:10 Referral None recorded. Procedures None recorded. Surgeries None recorded. Imaging None recorded. Medication Orders penicillin V potassium 500 mg tablet 2022 023 [id number], [address] [facility], [place], [address], 16:46:13 Patient TargetsNo targets recorded. Patient Instructions Encounter Date Encounter Id Patient Instructions Last Modified By Organization Details Last Modified Time 11/24/2022 [id number] sore throat: car e instructions [email or web address] Not available 11/24/2022 16:46:27 cough: care instructions [email or web address] Not available 11/24/2022 16:46:11 headache: care instructions [email or web address] Not available 11/24/2022 16:46:11 Reason for Referral None Reported. Results Created Date Observation Date Name Description Value Unit Range Abnormal Flag Note LastModifiedBy Organization Detail LastModifiedTime 11/24/1911/27/2022 UPPER RESPI RATOR Y CULTU RE upper respiratory culture FINAL REPORT Not Available [facility] ([facility]) [address] [facility], [place], [address], 11/27/2022 10:06:50 11/24/19 23 11/27/2022 UPPER RESPI RATOR Y CULTU RE result 1 COMMEN T Routi ne respi rator y annamaria Not Available [facility] ([facility]) [address] [facility], [place], [address], 11/27/2022 10:06:50 11/24/19 23 11/25/2022 PLEAS E NOTE please note Commen t The date and/o r time of colle ction was not indic ated on the requi sitio n as requi red by state and andres al law. The date of recei pt of the speci men was used as the colle ction date if not suppl ied. Not Available [facility] ([facility]) [address] [facility], [place], [address], 11/26/2022 16:06:44 11/24/19 23 11/24/2022 rapid SARS CoV 2 Ag, QL IA, respi rator y speci men Unknown Analyte Normal =Negat vaughn Not Available [address] [place] [address], [place], [address], 11/24/2022 16:14:55 11/24/19 23 11/24/2022 rapid SARS CoV 2 Ag, QL IA, respi rator y speci men Unknown Analyte negati ve Not Available [address] [place] [address], [place], [address], 11/24/2022 16:14:55 11/24/19 23 11/24/2022 rapid flu (A+B) Unknown Analyte Normal = Negati ve Not Available [address] [place] [address], [place], [address], 11/24/2022 16:14:48 11/24/19 23 11/24/2022 rapid flu (A+B) Unknown Analyte negati ve Not Available [address] [place] [address], [place], [address], 11/24/2022 16:14:48 11/24/19 23 11/24/2022 rapid flu (A+B) Unknown Analyte Normal = Negati ve Not Available [address] [place] [address], [place], [address], 11/24/2022 16:14:48 11/24/19 23 11/24/2022 rapid flu (A+B) Unknown Analyte negati ve Not Available [address] [place] [address], [place], [address], 11/24/2022 16:14:48 11/24/19 23 11/24/2022 rapid strep group A, throa t Unknown Analyte Normal = Negati ve Not Available [address] [place] [address], [place], [address], 11/24/2022 16:15:00 11/24/19 23 11/24/2022 rapid strep group A, throa t Unknown Analyte negati ve Not Available [facility] [address] [place] [address], [place], [address], 11/24/2022 16:15:00 Result Notes None recorded. Problems Name Problem SNOMED Code Status Onset Date Resolution Date Notes Provider Name and Address Organization Details Recorded Time Gastroesophage al reflux disease 352546485 Active 2022 KENNEY montoya PA - [facility] 3 16:12:05 Migraine 41657824 Active 2022 KENNEY montoya PA - [facility] 3 16:12:17 Chronic back pain 492229136 Active 2022 [facility] montoya [facility] - [facility] [...] Updated DateTime 3 180.34 cm 37.1 kg/m2 122103. 57 g 97.2 [degF] 18 /min 78 /min 98 % 98 % 142 mm[Hg] 79 mm[Hg] KENNEY ANGULO [facility] 16:14:38 Social History Question Answer Notes LastModified by [email or web address] ion Details LastModified Time Tobacco Smoking Status Never Smoker KENNEY montoya PA [facility] 11/24/2022 16:12:54 What Is Your Level [...] SNOMED-CT Code Diagnosis ICD10 Code Diagnosis Note [id number] [address] [address] [address] 05/01/2022 17:21:49 05/01/2022 17:50:42 [id number] [address] [address] 05/03/2020 09:55:42 05/03/2020 11:30:41 [id number] ZOHREH MONTIEL [facility] [address] [place] [address] 11/24/2022 15:59:16 11/24/2022 16:57:03 Acute upper respiratory infection 70068174 J06.9 Sore throat 922658739 J0 2.9 Known strep exposure. Rapid strep [...] Member ID Guarantor Name 11/24/2022 [facility]) Thuan Nguyen [id number] Thuan Nguyen Notes Date Note Type Note [...] paediatricians office as well. BLAYNE Wilcox, ZOHREH [address] [place], [place] [address], [address], [place] - [facility] 11/24/2022 16:48:47
--- OUTSIDE RECORDS SUMMARY | 2025-01-03 08:52 | XMS_ITS | Encounter Summary ---
Author Organization [facility] Address [address] [place] [address] Care Team Providers Care Elevator Repairer Helper Name Role Phone Unavailable Primary Care Provider Unavailabl e Encounter Details Date Type Department Care Team (Late st Contact Info) Description 06/16/2020 Lab Requisition [facility] Testing [address] [phone] Micehle Hwang PA-C [address] [place] [address] Encounter for laboratory testing for COVID-19 virus [...] DETECTED NOT DETECTED 06/17/2020 3:00 PM EDT [facility] Comment: A Not [...] providers and patients using the following websites: https://www.MobAppCreator.Jumpido/home/Covid-19/HCP/QuestLDTP/ fact-sheet https://www.All Def Digital/home/Covid19/Patients/QuestLDTP/ fact-sheet.html This test has been authorized by the FDA under an Emergency Use Authorization (EUA) for use by authorized laboratories. Due to the current public health emergency, [facility] is receiving a high volume of samples [...] about COVID-19 can be found at the [facility] website: www.Szl.it.Jumpido/Covid19. Microbiology Nasopharyngeal swab / Unknown 06/16/2020 1:24 PM EDT 06/16/2020 1:24 PM EDT [facility] - 06/17/2020 3:00 PM EDT Performing Organization Information: ?Site ID: [id number] ?Name: [employer] ?Address: [address] [place] [address],[facility] [place] [address] ?Director: JAMIA CANNON MD Performed at [facility] License number [id number] Michele Hwang PA-C MICROBIOLOGY - NERAL ORDERABLES Performing Organization Address City/State/[facility] Co de Phone Number [facility] documented in this encounter Visit Diagnoses Diagnosis Encounter for laboratory testing for COVID-19 virus documented in this encounter
--- OUTSIDE RECORDS SUMMARY | 2025-01-03 08:52 | XMS_ITS | Encounter Summary ---
Author Organization [facility] Address [address] [place] [address] Care Team Providers Care Behavioral Health Counselor Name Role Phone Unavailable Primary Care Provider Unavailabl e Encounter Details Date Type Department Care Team (Late st Contact Info) Description 09/22/2020 Lab Requisition [facility] Testing [address] [phone] Michele Hwang PA-C [address] [place] [address] Encounter for laboratory testing for COVID-19 virus [...] Qual (09/22/2020 3:25 PM EST) Pathologist [facility] SARS CoV 2 RNA, Qual NOT DETECTED NOT DETECTED 09/24/2020 7:00 PM EST [facility] Comment: A Not Detected [...] providers and patients using the following websites: https://www.Fnbox.Stribe/home/Covid-19/HCP/QuestLDTP/ fact-sheet https://www.GeoVax/home/Covid-19/Patients/QuestLDTP/ fact-sheet.html This test has been authorized by the FDA under an Emergency Use Authorization (EUA) for use by authorized laboratories. Due to the current public health emergency, [facility] is receiving a high volume of samples [...] about COVID-19 can be found at the [facility] website: www.K[employer]ek Sports.Stribe/Covid19. Microbiology Nasopharyngeal swab / Unknown 09/22/2020 3:25 PM EST 09/22/2020 3:25 PM EST [facility] - 09/24/2020 7:00 PM EST Performing Organization Information: ?Site ID: [id number] ?Name: [facility] ?Address: [address] [place] [address],[facility] [place] [address] ?Director: JAMIA CANNON MD [facility] at [facility] [id number] Michele Hwang PA-C MICROBIOLOGY - NERAL ORDERABLES Performing Organization Address City/State/[facility] Co de Phone Number [facility] documented in this encounter Visit Diagnoses Diagnosis Encounter for laboratory testing for COVID-19 virus documented in this encounter
--- OUTSIDE RECORDS SUMMARY | 2025-01-03 08:52 | XMS_ITS | Encounter Summary ---
Author Organization [facility] Address [address] [place] [address] Care Team Providers Care Linesperson Name Role Phone Unavailable Primary Care Provider Unavailabl e Encounter Details Date Type Department Care Team (Late st Contact Info) Description 07/28/2020 Lab Requisition [facility] Testing [address] [phone] Michele Hwang PA-C [address] [place] [id number] Encounter for laboratory testing for COVID-19 virus [...] DETECTED NOT DETECTED 08/01/2020 6:00 PM EDT [facility] Comment: [...] providers and patients using the following websites: https://www.[employer].JumpIn/home/Covid-19/HCP/QuestLDTP/ fact-sheet https://www.[employer]/home/Covid-19/Patients/QuestLDTP/ fact-sheet.html This test has been authorized by the FDA under an Emergency Use Authorization (EUA) for use by authorized laboratories. Due to the current public health emergency, [facility] is receiving a high volume of samples [...] about COVID-19 can be found at the [facility] website: www.[employer].JumpIn/Covid19. Microbiology Nasopharyngeal swab / Unknown 07/28/2020 3:29 PM EDT 07/28/2020 3:29 PM EDT [facility] - 08/01/2020 6:00 PM EDT Performing Organization Information: ?Site ID: [id number] ?Name: [employer] ?Address: [address] [place] [address],[place] [address] ?Director: JAMIA CANNON MD Performed at [facility] License number [id number] Michele Hwang PA-C MICROBIOLOGY - NERAL ORDERABLES Performing Organization Address City/State/[facility] Co de Phone Number [facility] documented in this encounter Visit Diagnoses Diagnosis Encounter for laboratory testing for COVID-19 virus documented in this encounter
--- OUTSIDE RECORDS SUMMARY | 2025-01-03 08:52 | XMS_ITS ---
Author Organization [facility] Address [address] [address] Care Team Providers Care Zipper Setter Chainstitch Name Role Phone Nena Ortiz Primary Care Provider Allergies No Known Allergies REASON FOR VISIT [facility] Medications Medication SIG (Take, Route, Frequency, Duration) Notes Start Date End Date Status Doxycycline Hyclate 100 MG 1 capsule Ora lly twice a day for 7 days 11/24/2024 12/01/2024 Active Encounters Encounter Location Date Provider Diagnosis [facility] [address] [facility] [address] [place] [address] 11/24/2024 Nena Ortiz Plan Of Treatment Medication Medication Name Sig Start Date Stop Date Notes Doxycycline Hyclate 100 MG 1 capsule Ora lly twice a day for 7 days 11/24/2024 12/01/2024 Next Appt Details Provider Name:Nena huston, 01/11/2025 09:15:00 AM, [address] [facility] [address], [place], [address], Progress Notes * TIFFANY LaraOB:1990 (34 yo M)Acc No.[id number]:11/24/2024 Patient:?Thuan ALLEN :1990???Age:34 Y???Sex:Male Address[address] [place], [place] [address], [address] * Refills? Start Doxycycline Hyclate Capsule, 100 MG, Orally, 14 Capsule, 1 capsule, twice a day, 7 days Subjective: * Chief Complaints: * ???[facility] * Medical History:? * Surgical History:? * Hospitalization/Major Diagno stic Procedure:? * Medications:? * Allergies:?N.K.D.A.no[Allerg ies Verified] Objective: * Vitals:? * Physical Examination:? Assessment: Plan: * Treatment: * Procedure Codes:? * true * Date:? Generated for Faizan lundberg/Barbra/Tapan on:?01/03/2025 08:51 AM EST
--- OUTSIDE RECORDS SUMMARY | 2025-01-03 08:52 | XMS_ITS | Encounter Summary ---
Author Organization [facility] Address [address] [place] [address] Care Team Providers Care Geodetic Surveyor Technologist Name Role Phone Unavailable Primary Care Provider Unavailabl e Encounter Details Date Type Department Care Team (Late st Contact Info) Description 12/24/2024 Orders Only [facility] Urologic Surgery [place] [address] [place] [address] Nena Ortiz MD [address] [place] [address] Social History Tobacco Use Types Packs/Day Years [...]
--- OUTSIDE RECORDS SUMMARY | 2025-01-03 08:52 | XMS_ITS | Continuity of Care Document ---
Author Name [facility] Organization [facility] Care Team Providers Care Delivery Lead Name Role Phone [facility] Unavailable Unavailable Problems [...] 2022 Entered By: MIGUELITO GABRIEL Comment: reviewed [facility] [place] [facility] Chronic Post-Traumatic Stress Disorder ([facility] [id number]) Active Condition Oct 13, 2023 Entered By: MIGUELITO GABRIEL Comment: reviewed [place] Comanagement Active Condition Dec 01, 2022 Entered By: RUTHIE ESTEBAN Comment: Belén Knight [facility] [place] [facility] Exposure to potentially hazardous substance Active Condition Dec 15, 2022 Entered By: JANEY RODRIGEZ Comment: [place] [facility] (241[facility]) History of deployment Active Condition [facility] [place] [facility] Major depressive disorder Active Condition Jan 25, 2021 Entered By: MIGUELITO GABRIEL Comment: reviewedAug 20, 2021 Entered By: MIGUELITO GABRIEL Comment: reviewedOct 13, 2023 Entered By: MIGUELITO GABRIEL Comment: reviewed [facility] [place] [facility] Migraine Active Condition Jul 25 Entered By: RUTHIE ESTEBAN Comment: followed by Dr. Vo [facility] [place] [facility] Sleep apnea Active Condition Sep 09, 2022 Entered By: RUTHIE ESTEBAN Comment: unable to tolerate PAP therapy [facility] [place] [facility] Affective disorder Inactive Condition 10/13/2023 [facility] [place] [facility] Chronic post-traumatic stress disorder Inactive Condition 08/20/2021 MICHAEL GARZA Diagnosis: ICD-10-CM G47.30 Sleep apnea, unspecified Active Diagnosis [facility] (651[facility]) Diagnosis: ICD-10-CM F43.12 Post-traumatic stress disorder, chronic Active Diagnosis [place] Diagnosis: ICD-10-CM G47.33 Obstructive sleep apnea (adult) (pediatric) Active Diagnosis [facility] [place] [facility] Diagnosis: ICD-10-CM K03.6 Deposits [accretions] on teeth Active Diagnosis [facility] Diagnosis: ICD-10-CM M54.59 Other low back pain Active Diagnosis [place] Medications Combined list of outpatient medications from [...] BY MOUTH ONCE DAILY FOR MOOD 10/13/2024 [id number] MIGUELITO GABRIEL 2023 60 [facility] SERTRALINE HCL 25MG TAB TAKE ONE TABLET BY MOUTH ONCE DAILY FOR POSTTRAU MATIC STRESS SYNDROME ORAL SUSPEND ED 08/06/2025 [id number] Guy GABRIEL 2023 60 [place] SERTRALINE HCL 25MG TAB TAKE ONE TABLET BY MOUTH ONCE DAILY FOR MOOD ORAL DISCONT INUED 10/13/2024 [id number] Guy GABRIEL 2022 60 [place] SODIUM FLUORIDE 1.1% TOOTHPASTE BRUSH SMALL AMOUNT TO TEETH TWICE DAILY FOR TOOTH DECAY PREVENTI ON DENTAL ACTIVE 10/12/2025 [id number] Geraldine KEYES 2023 51 [facility] UBROGEPANT TAB TAKE BY MOUTH ONE TIME [...] Site Reaction Lot Number CVX Code Drug Cash Register Repairer Status Comments Source influenza, injectable, quadrivalent, contains preservative 1 2018 [id number] Seq[employer] (SEQ) complet ed influenza , injectabl e, quadrival ent, contains preservat vaughn DoD anthrax vaccine 1 2018 [id number] [facility] (M[facility] complet ed anthrax vaccine DoD typhoid Vi capsular polysaccharid e vaccine 1 2018 [id number] Sanofi Pasteur (PMC) complet ed typhoid Vi capsular polysacch aride vaccine DoD Influenza, seasonal, injectable, preservative free 1 2017 [id number] Seqirus (SEQ) comple t ed Influenza , seasonal, injectabl e, preservat vaughn free DoD Influenza, injectable, quadrivalent, preservative free 1 2017 [id number] 150 Unknown (UNK) comple t ed Influenza , injectabl e, quadrival ent, preservat vaughn free DoD Influenza, seasonal, injectable, preservative free 1 2016 [id number] 140 Unknown (UNK) comple t ed Influenza , seasonal, injectabl e, preservat vaughn free DoD Influenza, seasonal, injectable, preservative free 1 2015 [id number] Other (OTH) complet ed Influenza , seasonal, injectabl e, preservat vaughn free DoD Influenza, seasonal, injectable, preservative free 1 2014 [id number] 140 Other (OTH) complet ed Influenza , seasonal, injectabl e, preservat vaughn free DoD hepatitis B vaccine, adult dosage 3 2013 [id number] 43 Other (OTH) complet ed hepatitis B vaccine, adult dosage DoD hepatitis A vaccine, adult dosage 3 2013 [id number] 52 Other (OTH) complet ed hepatitis A vaccine, adult dosage DoD Influenza, seasonal, injectable, preservative free 1 2013 [id number] 140 [facility] Influenza , seasonal, injectabl e, preservat vaughn free DoD hepatitis A and hepatitis B vaccine 2 2012 [id number] 104 [facility] (SK[facility] complet ed hepatitis A and [...] and type 7, live, oral 1 2012 [id number] 143 [employer] (BRR) complet ed Adenoviru s, type 4 and type 7, live, oral DoD influenza, live, intranasal, quadrivalent 1 2012 [id number] 149 [employer] (CSL) complet ed influenza , live, intranasa l, quadrival ent DoD poliovirus vaccine, inactivated 1 2012 [id number] 10 Sanofi Pasteur (PMC) complet ed polioviru s vaccine, inactivat ed DoD meningococcal polysaccharid e (groups A, C, Y and W-135) diphtheria toxoid conjugate vaccine (MCV4P) 1 2012 [id number] 114 [employer] (SKB) complet ed meningoco ccal polysacch aride (groups A, C, Y and W-135) diphtheri a toxoid conjugate vaccine (MCV4P) DoD tetanus toxoid, reduced diphtheria toxoid, and acellular pertu is vaccine, adsorbed 1 2012 [id number] 115 Sanofi Pasteur (PMC) complet ed tetanus [...] Sep 17, 2023 11:53 AM Reporting Lab: [facility] [address] [address] Performing Lab: [facility] [address] [address] [facility] LIPID PANEL FASTING CHOLESTEROL [MASS/VOLUM E] IN SERUM OR PLASMA 168 mg/dL 09/17 Specimen Type: SERUM No comment entered. Ordering Provider: JOSHUA ESTEBAN Report Released Date/Time: March 19, 2023 04:54 PM Reporting Lab: [facility] [place] [facility] [address] [address] Performing Lab: [facility] [address] [address] [facility] SYSTEMRL TRN [facility] LIPID PANEL FASTING TRIGLYCERID E [MASS/VOLUM E] IN SERUM OR PLASMA 185 mg/dL 0 - 150 09/17 H Specimen Type: SERUM No comment entered. Ordering Provider: JOSHUA ESTEBAN Report Released Date/Time: March 19, 2023 04:54 PM Reporting Lab: [facility]N [facility]USE[address] [address] Performing Lab: [facility]N [facility] [address] [facility]ITAL[facility] LIPID PANEL FASTING CHOLESTEROL IN LDL [MASS/VOLUM E] IN SERUM OR PLASMA BY CALCULATION 91 mg/dL 0 - 129 09/17 Specimen Type: SERUM No comment entered. Ordering Provider: JOSHUA ESTEBAN Report Released Date/Time: March 19, 2023 04:54 PM Reporting Lab: [facility]N [facility]USE[address] [address] Performing Lab: [facility] SYSTEMRL TRN [facility] [address] [facility]RTAYL[facility]ILITYN [place] [facility] LIPID PANEL FASTING CHOLESTEROL .TOTAL/CHOL ESTEROL IN HDL [MASS RATIO] IN SERUM OR PLASMA 4.2 09/17 Specimen Type: SERUM No comment entered. Ordering Provider: JOSUHA ESTEBAN Report Released Date/Time: March 19, 2023 04:54 PM Reporting Lab: [facility] SYSTEMRRIVERV[facility]ENTERTRN [facility]USE[address] [address] Performing Lab: [facility] SYSTEMRRIVERV[facility]ENTERTRN [facility]USE[address] [address] [facility] SYSTEM[facility]N [place] [facility] LIPID PANEL FASTING CHOLESTEROL IN HDL [MASS/VOLUM E] IN SERUM OR PLASMA 40 mg/dL 40 - 60 09/17 Specimen Type: SERUM No comment entered. Ordering Provider: JOSHUA ESTEBAN Report Released Date/Time: March 19, 2023 04:54 PM Reporting Lab: [facility] [place] [facility] [address] [address] Performing Lab: [facility] [place] [facility] [address] [address] [facility] [place] [facility] LIVER FUNCTION PROTEIN [MASS/VOLUM E] IN SERUM OR PLASMA 7.5 g/dL 6.0 - 8.3 09/17 Specimen Type: SERUM No comment entered. Ordering Provider: JOSHUA ESTEBAN Report Released Date/Time: March 19, 2023 04:54 PM Reporting Lab: [facility] [place] [address] [address] Performing Lab: [facility] [place] [address] [address] [facility] SYSTEMRRIVERVIEW REGIONAL MEDICAL CENTERTRN [place] [facility] LIVER FUNCTION ALBUMIN [MASS/VOLUM E] IN SERUM OR PLASMA 4.3 g/dL 3.5 - 5.0 09/17 Specimen Type: SERUM No comment entered. Ordering Provider: JOSHUA ESTEBAN Report Released Date/Time: March 19, 2023 04:54 PM Reporting Lab: [facility] [place] [address] [address] Performing Lab: [place] [facility] [place] [address] [address] [facility] [place] [facility] LIVER FUNCTION ALKALINE PHOSPHATASE [ENZYMATIC ACTIVITY/VO LUME] IN SERUM OR PLASMA 49 U/L 40 - 150 09/17 Specimen Type: SERUM No comment entered. Ordering Provider: JOSHUA ESTEBAN Report Released Date/Time: March 19, 2023 04:54 PM Reporting Lab: [facility] [place] [address] [address] Performing Lab: [facility] [place] [facility] [address] [address] [place] [facility] [place] [facility] LIVER FUNCTION ASPARTATE AMINOTRANSF ERASE [ENZYMATIC ACTIVITY/VO LUME] IN SERUM OR PLASMA 19 U/L 5 - 34 09/17 Specimen Type: SERUM No comment entered. Ordering Provider: JOSHUA ESTEBAN Report Released Date/Time: March 19, 2023 04:54 PM Reporting Lab: [facility] [place] [facility] [address] [address] Performing Lab: [facility] [place] [facility] [address] [address] [facility] [place] [facility] LIVER FUNCTION ALANINE AMINOTRANSF ERASE [ENZYMATIC ACTIVITY/VO LUME] IN SERUM OR PLASMA 30 U/L 09/17 Specimen Type: SERUM No comment entered. Ordering Provider: JOSHUA ESTEBAN Report Released Date/Time: March 19, 2023 04:54 PM Reporting Lab: [facility] [place] [facility] [address] [address] Performing Lab: [facility] [place] [facility] [address] [address] [facility] [place] [facility] LIVER FUNCTION BILIRUBIN.T OTAL [MASS/VOLUM E] IN SERUM OR PLASMA 0.8 mg/dL 0.2 - 1.2 09/17 Specimen Type: SERUM No comment entered. Ordering Provider: JOSHUA ESTEBAN Report Released Date/Time: March 19, 2023 04:54 PM Reporting Lab: [facility] [place] [facility] [address] [address] Performing Lab: [facility] [place] [facility] [address] [address] [place] [facility] [place] [facility] BASIC METABOLIC PANEL (fasting) UREA NITROGEN [MASS/VOLUM E] IN SERUM OR PLASMA 13 mg/dL 7 - 25 09/17 Specimen Type: SERUM No comment entered. Ordering Provider: JOSHUA ESTEBAN Report Released Date/Time: March 19, 2023 04:54 PM Reporting Lab: [facility] [place] [facility] [address] [address] Performing Lab: [facility] [address] [address] [facility] [place] [facility] BASIC METABOLIC PANEL (fasting) GLUCOSE [MASS/VOLUM E] IN SERUM OR PLASMA 92 mg/dL 65 - 100 09/17 Specimen Type: SERUM No comment entered. Ordering Provider: JOSHUA ESTEBAN Report Released Date/Time: March 19, 2023 04:54 PM Reporting Lab: [facility]ITALUSEAD[facility] [address] [address] Performing Lab: [facility]RL [facility]N [facility]ITALUSEAD[facility] [address] [address] [facility] SYSTEMRTAYL[facility]ACILITYN [facility] BASIC METABOLIC PANEL (fasting) SODIUM [MOLES/VOLU ME] IN SERUM OR PLASMA 139 mmol/L 135 - 145 09/17 Specimen Type: SERUM No comment entered. Ordering Provider: JOSHUA ESTEBAN Report Released Date/Time: March 19, 2023 04:54 PM Reporting Lab: [facility] SYSTEMRRIVERVIEW [facility] CENTERTRN [facility]ITALUSEAD[facility] [address] [address] Performing Lab: [facility]ITALUSEAD[facility] [address] [address] [facility] SYSTEMRRIVERVIEW REGIONAL MEDICAL CENTERTRN [facility] BASIC METABOLIC PANEL (fasting) POTASSIUM [MOLES/VOLU ME] IN SERUM OR PLASMA 4.2 mmol/L 3.5 - 5.0 09/17 Specimen Type: SERUM No comment entered. Ordering Provider: JOSHUA ESTEBAN Report Released Date/Time: March 19, 2023 04:54 PM Reporting Lab: [facility] [place] [facility] [address] [address] Performing Lab: [facility] [address] [address] [facility]RL [facility]N [facility]ITALUSE [facility] BASIC METABOLIC PANEL (fasting) CHLORIDE [MOLES/VOLU ME] IN SERUM OR PLASMA 105 mmol/L 100 - 110 09/17 Specimen Type: SERUM No comment entered. Ordering Provider: JOSHUA ESTEBAN Report Released Date/Time: March 19, 2023 04:54 PM Reporting Lab: [facility] [place] [facility] [address] [address] Performing Lab: [facility]ETS [facility] [address] [address] [facility]N [facility]ITALUSE [facility] BASIC METABOLIC PANEL (fasting) CARBON DIOXIDE, TOTAL [MOLES/VOLU ME] IN SERUM OR PLASMA 26 meq/L 20 - 30 09/17 Specimen Type: SERUM No comment entered. Ordering Provider: JOSHUA ESTEBAN Report Released Date/Time: March 19, 2023 04:54 PM Reporting Lab: [facility] [place] [address] [address] Performing Lab: [facility] [address] [facility]N [facility]ITALUSE [facility] BASIC METABOLIC PANEL (fasting) CREATININE [MASS/VOLUM E] IN SERUM OR PLASMA 1.11 mg/dL 0.50 - 1.40 09/17 Specimen Type: SERUM No comment entered. Ordering Provider: JOSHUA ESTEBAN Report Released Date/Time: March 19, 2023 04:54 PM Reporting Lab: [facility] [place] [address] [address] Performing Lab: [facility]ITAL[facility]ETS [address] [address] [facility] [place] [facility] BASIC METABOLIC PANEL (fasting) GLOMERULAR FILTRATION RATE/1.73 SQ M.PREDICTED [VOLUME RATE/AREA] IN SERUM, PLASMA OR BLOOD BY CREATININE- BASED FORMULA (CKD-EPI 2020) 90 mL/min 60 09/17 Specimen Type: SERUM No comment entered. Ordering Provider: JOSHUA ESTEBAN Report Released Date/Time: March 19, 2023 04:54 PM Reporting Lab: [facility] [place] [address] Performing Lab: [facility]CH[address] [address] [facility]RTAYL[facility]ILITYN [facility]ITALUSE [facility] HEMOGLOBI N A1C PANEL HEMOGLOBIN [...] March 19, 2023 04:54 PM Reporting Lab: [facility] [address] [address] Performing Lab: [facility] [address] [address] [facility] TSH THYROTROPIN [UNITS/VOLU ME] IN SERUM OR PLASMA 2.26 u[IU]/ mL 0.35 - 5.00 09/17 Specimen Type: SERUM No comment entered. Ordering Provider: JOSHUA ESTEBAN Report Released Date/Time: March 19, 2023 04:54 PM Reporting Lab: [facility]ILITYN [address] [address] Performing Lab: [facility]ILITYN [address] [address] [facility] CBC AND DIFF (AUTO) LEUKOCYTES [#/VOLUME] IN BLOOD BY AUTOMATED COUNT 11.72 10*3/u L 4.50 - 11.00 09/17 H Specimen Type: BLOOD No comment entered. Ordering Provider: JOSHUA ESTEBAN Report Released Date/Time: March 19, 2023 04:54 PM Reporting Lab: [facility] [address] [address] Performing Lab: [facility] [address] [facility] [place] [facility] CBC AND DIFF (AUTO) ERYTHROCYTE S [#/VOLUME] IN BLOOD BY AUTOMATED COUNT 5.54 10*6/u L 4.23 - 5.66 09/17 Specimen Type: BLOOD No comment entered. Ordering Provider: JOSHUA ESTEBAN Report Released Date/Time: March 19, 2023 04:54 PM Reporting Lab: [facility]RRIV[facility]ENTERTRN [place] [facility] [address] [address] Performing Lab: [facility] [place] [facility] [address] [address] [facility]RTAY[facility]ILITYN [place] [facility] CBC AND DIFF (AUTO) HEMOGLOBIN [MASS/VOLUM E] IN BLOOD 14.9 g/dL 12.8 - 17 09/17 Specimen Type: BLOOD No comment entered. Ordering Provider: JOSHUA ESTEBAN Report Released Date/Time: March 19, 2023 04:54 PM Reporting Lab: [facility] [place] [address] [address] Performing Lab: [facility]RRIV[facility]ENTERTRN [place] [address] [address] [facility] [place] [facility] CBC AND DIFF (AUTO) HEMATOCRIT [VOLUME FRACTION] OF BLOOD BY AUTOMATED COUNT 45.1 39.2 - 50.4 09/17 Specimen Type: BLOOD No comment entered. Ordering Provider: JOSHUA ESTEBAN Report Released Date/Time: March 19, 2023 04:54 PM Reporting Lab: [facility]TR[facility] [place] [address] [address] Performing Lab: [facility]RRIV[facility]ENTERTRN [place] [address] [address] [facility]RTAY[facility]ILITYN [place] [facility] CBC AND DIFF (AUTO) MCV [ENTITIC VOLUME] BY AUTOMATED COUNT 81.4 fL 82 - 99 09/17 L Specimen Type: BLOOD No comment entered. Ordering Provider: JOSHUA ESTEBAN Report Released Date/Time: March 19, 2023 04:54 PM Reporting Lab: [facility]RR[facility]TR[facility] [place] [address] [address] Performing Lab: [facility] [place] [facility] [address] [address] [facility] [place] [facility] CBC AND DIFF (AUTO) MCHC [MASS/VOLUM E] BY AUTOMATED COUNT 33.0 g/dL 30.8 - 35.1 09/17 Specimen Type: BLOOD No comment entered. Ordering Provider: JOSHUA ESTEBAN Report Released Date/Time: March 19, 2023 04:54 PM Reporting Lab: [facility] [place] [facility] [address] [address] Performing Lab: [facility] [facility] [address] [address] [facility] [place] [facility] CBC AND DIFF (AUTO) PLATELETS [#/VOLUME] IN BLOOD BY AUTOMATED COUNT 294 10*3/u L 140 - 360 09/17 Specimen Type: BLOOD No comment entered. Ordering Provider: JOSHUA ESTEBAN Report Released Date/Time: March 19, 2023 04:54 PM Reporting Lab: [facility] [facility] [address] [address] Performing Lab: [facility] [place] [facility] [address] [address] [facility] [place] [facility] CBC AND DIFF (AUTO) ERYTHROCYTE DISTRIBUTIO N WIDTH [RATIO] BY AUTOMATED COUNT 13.9 12.0 - 16.0 09/17 Specimen Type: BLOOD No comment entered. Ordering Provider: JOSHUA ESTEBAN Report Released Date/Time: March 19, 2023 04:54 PM Reporting Lab: [facility] [place] [facility] [address] [address] Performing Lab: [facility] [place] [facility] [address] [address] [facility] [place] [facility] CBC AND DIFF (AUTO) MONOCYTES [#/VOLUME] IN BLOOD BY AUTOMATED COUNT 0.96 10*3/u L 0.30 - 1.10 09/17 Specimen Type: BLOOD No comment entered. Ordering Provider: JOSHUA ESTEBAN Report Released Date/Time: March 19, 2023 04:54 PM Reporting Lab: [facility] [place] [facility] [address] [address] Performing Lab: [facility] [place] [facility] [address] [address] [facility] [place] [facility] CBC AND DIFF (AUTO) MCH [ENTITIC MASS] BY AUTOMATED COUNT 26.9 pg 26.2 - 32.6 09/17 Specimen Type: BLOOD No comment entered. Ordering Provider: JOSHUA ESTEBAN Report Released Date/Time: March 19, 2023 04:54 PM Reporting Lab: [facility] [place] [facility] [address] [address] Performing Lab: [facility] [place] [facility] [address] [address] [facility] [place] [facility] CBC AND DIFF (AUTO) NEUTROPHILS /100 LEUKOCYTES IN BLOOD BY AUTOMATED COUNT 76.1 43.7 - 75.8 09/17 H Specimen Type: BLOOD No comment entered. Ordering Provider: JOSHUA ESTEBAN Report Released Date/Time: March 19, 2023 04:54 PM Reporting Lab: [facility] [place] [facility] [address] [address] Performing Lab: [facility] [place] [facility] [address] [address] [facility] [place] [facility] CBC AND DIFF (AUTO) LYMPHOCYTES /100 LEUKOCYTES IN BLOOD BY AUTOMATED COUNT 13.8 14.0 - 42.3 09/17 L Specimen Type: BLOOD No comment entered. Ordering Provider: JOSHUA ESTEBAN Report Released Date/Time: March 19, 2023 04:54 PM Reporting Lab: [facility] [place] [facility] [address] [address] Performing Lab: [facility] [place] [facility] [address] [address] [facility] [place] [facility] CBC AND DIFF (AUTO) MONOCYTES/1 00 LEUKOCYTES IN BLOOD BY AUTOMATED COUNT 8.2 5.1 - 13.7 11/01 /2023 Specimen Type: BLOOD No comment entered. Ordering Provider: JOSHUA ESTEBAN Report Released Date/Time: March 19, 2023 04:54 PM Reporting Lab: [facility] [place] [facility] [address] [address] Performing Lab: [facility] [place] [facility] [address] [address] [facility] [place] [facility] CBC AND DIFF (AUTO) EOSINOPHILS /100 LEUKOCYTES IN BLOOD BY AUTOMATED COUNT 1.1 0.4 - 6.8 09/17 Specimen Type: BLOOD No comment entered. Ordering Provider: JOSHUA ESTEBAN Report Released Date/Time: March 19, 2023 04:54 PM Reporting Lab: [facility] [place] [address] [address] Performing Lab: [facility] [place] [address] [address] [facility] [facility] CBC AND DIFF (AUTO) BASOPHILS/1 00 LEUKOCYTES IN BLOOD BY AUTOMATED COUNT 0.5 0.1 - 2.0 09/17 Specimen Type: BLOOD No comment entered. Ordering Provider: JOSHUA ESTEBAN Report Released Date/Time: March 19, 2023 04:54 PM Reporting Lab: [facility] [place] [address] [phone] Performing Lab: [facility] [place] [address] [address] [facility] [place] [facility] CBC AND DIFF (AUTO) NEUTROPHILS [#/VOLUME] IN BLOOD BY AUTOMATED COUNT 8.91 10*3/u L 2.20 - 7.60 09/17 H Specimen Type: BLOOD No comment entered. Ordering Provider: JOSHUA ESTEBAN Report Released Date/Time: March 19, 2023 04:54 PM Reporting Lab: [facility] [address] [address] Performing Lab: [facility] [address] [address] [facility] CBC AND DIFF (AUTO) LYMPHOCYTES [#/VOLUME] IN BLOOD BY AUTOMATED COUNT 1.62 10*3/u L 1.00 - 3.20 09/17 Specimen Type: BLOOD No comment entered. Ordering Provider: JOSHUA ESTEBAN Report Released Date/Time: March 19, 2023 04:54 PM Reporting Lab: [facility] [address] [address] Performing Lab: [facility] [address] [address] [facility] CBC AND DIFF (AUTO) EOSINOPHILS [#/VOLUME] IN BLOOD BY AUTOMATED COUNT 0.13 10*3/u L 0.03 - 0.44 09/17 Specimen Type: BLOOD No comment entered. Ordering Provider: JOSHUA ESTEBAN Report Released Date/Time: March 19, 2023 04:54 PM Reporting Lab: [facility] [address] [address] Performing Lab: [facility] [address] [address] [facility] CBC AND DIFF (AUTO) BASOPHILS [#/VOLUME] IN BLOOD BY AUTOMATED COUNT 0.06 10*3/u L 0.01 - 0.13 09/17 Specimen Type: BLOOD No comment entered. Ordering Provider: JOSHUA ESTEBAN Report Released Date/Time: March 19, 2023 04:54 PM Reporting Lab: [facility] [address] [address] Performing Lab: [facility] [address] [address] [facility] CBC AND DIFF (AUTO) IMMATURE GRANULOCYTE S/100 LEUKOCYTES IN BLOOD BY AUTOMATED COUNT 0.3 0.0 - 0.7 09/17 Specimen Type: BLOOD No comment entered. Ordering Provider: JOSHUA ESTEBAN Report Released Date/Time: March 19, 2023 04:54 PM Reporting [facility] [address] [address] Performing Lab[facility] [address] [address] [facility] CBC AND DIFF (AUTO) IMMATURE GRANULOCYTE S [#/VOLUME] IN BLOOD 0.04 10*3/u L 0.00 - 0.06 09/17 Specimen Type: BLOOD No comment entered. Ordering Provider: JOSHUA ESTEBAN Report Released Date/Time: March 19, 2023 04:54 PM Reporting Lab: [facility] [address] [address] Performing Lab: [facility] [address] [address] [facility] Encounters Combined list of: 1) Encounters from Department of Veterans Affairs facilities going backup to the last 18 months, not all [place] inpatient encounters are included; 2) Encounters from the Department of Defense facilities going backup to 280 months. Location Location Details Encounter Type Encounter Number Reason For Visit Attending Provider ADM Date DC Date Status Disposition Source [place] Hearing Program) OUTPATIENT [id number] Notes Entered by: CHERIE GONZALES 28 Jul 2013 1407 ------- ------- ------- ------- -- Hearing test CHERIE GONZALES 07/28 Released w/o Limitations [place] [place] [place] [facility] [place] OUTPATIENT [id number] SHUBHAM MAK 07/29 Released w/o Limitations [place] Optomet ry) [place] OUTPAT[place] [id number] Notes Entered by: Christina MCKEON 30 Jul 2013 1007 ------- ------- ------- ------- -- IMM ROBERT REEVES 07/30 Released w/o Limitations [place] ) [place]PATIENT [id number] Notes Entered by: MADELINE MEDELLIN 24 Aug 2013 07 ------- ------- ------- ------- -- ORTHO- HAND MILLY DIAZ 08/24 Released with Work/Duty Limitations [place] [facility]) [place]) OUTPATIENT [id number] Notes Entered by: RODRIGUE NOBLES 13 Sep 2013 0826 ------- ------- ------- ------- -- IMMZAKIA MULLINS 09/13 Released w/o Limitations [place]) [place] [facility]) OUTPATIENT [id number] Notes Entered by: RODRIGUE NOBLES 01 Oct 2013 07 ------- ------- ------- ------- -- ZAKIA Junior 10/01 Released w/o Limitations [place]) [place] [address]) OUTPATIENT [id number] Notes Entered by: AMANDA HUGHES 30 Dec 2018 0843 ------- ------- ------- ------- -- TENNILLE/ ALEC GARCIA 12/30 Released w/o Limitations [place] [address]) Theater Facility OUTPATIENT [id number] Theater Provider 05/08 Released w/o Limitations [facility] OUTPATIENT [id number] Theater Provider 05/09 Released w/o Limitations [facility] OUTPATIENT [id number] Theater Provider 05/12 Released w/o Limitations [facility] OUTPATIENT [id number] Theater Provider 05/23 Released w/o Limitations [facility] OUTPATIENT [id number] Theater Provider 05/24 Released w/o Limitations [facility] OUTPATIENT [id number] Theater Provider 06/28 Released w/o Limitations [facility] OUTPATIENT [id number] Theater Provider 07/03 Released with Work/Duty Limitations [facility] OUTPATIENT [id number] Theater Provider 07/08 Released w/o Limitations [facility] OUTPATIENT [id number] 2 Theater Provider 07/09 Released w/o Limitations [facility] OUTPATIENT [id number] Theater Provider 07/29 Released w/o Limitations [facility] OUTPATIENT [id number] 7 Theater Provider 08/07 Released w/o Limitations [facility] OUTPATIENT [id number] Theater Provider 08/15 Released w/o Limitations [facility] OUTPATIENT [id number] 3 Theater Provider 08/28 Released w/o Limitations [facility] OUTPATIENT [id number] 8 Theater Provider 08/28 Released with Work/Duty Limitations [facility] OUTPATIENT [id number] 2 Theater Provider 09/01 Released w/o Limitations [facility] OUTPATIENT [id number] 1 Theater Provider 09/10 Released w/o Limitations [facility] OUTPATIENT [id number] 5 Theater Provider 09/15 Sick at Home/Quarter s Theater Fac[facility] y Theater Facility OUTPATIENT [id number] 3 Theater Provider 09/16 Sick at Home/Quarter s [facility] OUTPATIENT [id number] 5 Theater Provider 09/17 Sick at Home/Quarter s [facility] Theater Facility OUTPATIENT [id number] 4 Theater Provider 10/09 Released w/o Limitations Theater [place] Bldg [address]) OUTPATIENT [id number] Notes Entered by: SARAI MARQUEZ 25 Nov 2019 1127 ------- ------- ------- ------- -- ELMER SOARES 11/25 Released w/o Limitations [place] B[facility] [address]) [place] Hearing Conservat ion) OUTPATIENT [id number] Notes Entered by: CAM UH I 25 Nov 2019 1240 ------- ------- ------- ------- -- POST JADE HO I 11/25 Released w/o Limitations [place] Hearing Conserv ation) [place] Physical Exam Clinic) OUTPATIENT [id number] Notes Entered by: ASAD STEEL 25 Nov 2019 1305 ------- ------- ------- ------- -- EHRMAN 638 SELENA REDDY 11/25 Released w/o Limitations [place] Physica l Exam Clinic) [facility] Outpatient Encounter [id number] 07/11 [facility] Outpatient Encounter [id number] 09/05 [facility] OFF[facility] O/P EST MOD 30-39 MIN [id number] Diagnos is: ICD-10- CM M54.59 Other low back pain Zaheer ESTEBAN 09/17 [facility] Outpatient Encounter [id number] 09/19 [facility] [place] [place] En[facility] [id number] 09/24 [facility] En[facility] [id number] 09/26 [facility] Encounter [id number] 09/26 [facility] Encounter [id number] 09/26 [facility] Encounter [id number] 09/30 [facility] Encounter [id number] 10/02 [facility] [place] [facility] Encounter [id number] [facility]P EST HI 40-54 MIN [id number] Diagnos is: ICD-10- CM F43.12 Post-tr aumatic stress disorde r, chronic ST TYRA GABRIEL G 10/13 [place] [facility] En[facility] [id number] 11/03 [facility] [place] Outpatient Encounter [id number] 12/18 [facility] [place] Outpatient Encounter [id number] Diagnos is: ICD-10- CM F43.12 Post-tr aumatic stress disorde r, chronic ST TYRA GABRIEL G 12/18 [place] [facility] Encounter [id number] 12/22 [facility] Encounter [id number] 02/11 [facility] Encounter [id number] 02/19 [facility] OFF[facility] O/P NEW LOW 30 MIN [id number] Diagnos is: ICD-10- CM G47.33 Obstruc tive sleep apnea (adult) (pediat sarah) PRISCA KEYES 02/22 [facility] En[facility] [id number] 02/22 [facility] Encounter [id number] 03/26 [facility] [place] Outpatient Encounter [id number] 03/29 [facility] [place] OFFICE O/P EST HI 40 MIN [id number] Diagnos is: ICD-10- CM F43.12 Post-tr aumatic stress disorde r, chronic GABRIEL,ST EPHEN G 04/01 [place] [facility] Out[facility] Encounter [id number] 04/23 [facility] ORAL DEVICE/RODDY LIANCE CUSFAB [id number] Diagnos is: ICD-10- CM G47.33 Obstruc tive sleep apnea (adult) (pediat sarah) PRISCA KEYES [place] J 04/26 [facility] En[facility] [id number] 06/01 [facility] OFF[facility] O/P EST LOW 20 MIN [id number] Diagnos is: ICD-10- CM G47.33 Obstruc tive sleep apnea (adult) ([facility] sarah) PRISCA KEYES [place] J 06/02 [facility] Out[facility] Encounter [id number] 07/12 [facility] OFF[facility] O/P EST LOW 20 MIN [id number] Diagnos is: ICD-10- CM G47.33 Obstruc tive sleep apnea (adult) ([facility] sarah) PRISCA KEYES [place] J 07/13 [facility] OFF[facility] O/P EST LOW 20 MIN [id number] Diagnos is: ICD-10- CM G47.33 Obstruc tive sleep apnea (adult) ([facility] sarah) PRISCA KEYES [place] J 07/14 [facility] Encounter [id number] 07/15 [facility] Encounter [id number] 07/26 [facility] OFF[facility] O/P EST LOW 20 MIN [id number] Diagnos is: ICD-10- CM G47.33 Obstruc tive sleep apnea (adult) ([facility] sarah) PRISCA KEYES [place] J 07/27 [facility] Encounter [id number] 07/29 [facility] OFFICE O/P EST MOD 30 MIN [id number] 1BY. 12 Diagnos is: ICD-10- CM F43.12 Post-tr aumatic stress disorde r, chronic GABRIEL,ST EPHEN G 08/05 [place] [facility] Out[facility] Encounter [id number] 09/21 [facility] Out[facility] Encounter [id number] 09/24 [facility] Out[facility] Encounter [id number] 1.10/06 [facility] Encounter [id number] 1.10/08 [facility] O/P EST MOD 30 MIN [id number] Diagnos is: ICD-10- CM F43.12 Post-tr aumatic stress disorde r, chronic GABRIEL,ST EPHEN G 10/11 [place] [facility] COMPREHENS VE ORAL EVALUATION [id number] 1. Diagnos is: ICD-10- CM G47.33 Obstruc tive sleep apnea (adult) ([facility] sarah) PRISCA KEYES CT[place] J 10/11 [facility] Out[facility] Encounter [id number] 10/26 [facility] [place] [place] CASE MGMT-ORAL HEALTH LIT [id number] 1. Diagnos is: ICD-10- CM K03.6 Deposit s [accret ions] on teeth JOHNNA RODRIGUEZ 10/27 [facility] OFFICE O/P EST LOW 20 MIN [id number] 1. Diagnos is: ICD-10- CM G47.33 Obstruc tive sleep apnea (adult) (pediat sarah) PRISCA KEYES J 11/02 [facility] [place] Outpatient [facility]counter [id number] 1[facility]11/08 [facility] [place] Out[facility] Encounter [id number] 1.11/08 [facility] [place] [place] Outpatient Encounter [id number] 11/22 [facility] SYNCH AUDIO-ONLY EST LOW 20 [id number] Diagnos is: ICD-10- CM F43.12 Post-tr aumatic stress disorde r, chronic GABRIEL,ST EPHEN G 12/02 [place] [facility] Outpatient Encounter [id number] 12/02 [facility] Out[facility] Encounter [id number] Sandra DAMIAN 12/09 [facility] FEE [id number] Diagnos is: ICD-10- CM G47.30 Sleep apnea, unspeci fied Justus MAGALLON 12/23 [facility] (631GE) SLEEP STUDY UNATT&RESP EFFT [id number] Diagnos is: ICD-10- CM G47.30 Sleep apnea, unspeci fied VIDA,FRANCISCO JAVIER SARAH 12/23 [facility] (631GE) Procedures Combined list of: 1) Procedures from Department of Veterans Affairs facilities going back up to thelast 18 months, not all [place] non-surgical procedures are included; 2) All procedures from the Department of Defense facilities. Procedure Procedure Type Code Date Perfomer Comments Steven e HEPATITIS A AND HEPATITIS B VACCINE (HEPA-HEPB), ADULT DOSAGE, FOR INTRAMUSCULAR USE [facility] ADENOVIRUS VACCINE, TYPE 7, LIVE, FOR ORAL USE [facility] FITTING OF SPECTACLES, EXCEPT FOR APHAKIA; MONOFOCAL [facility] EAR MOLD/INSERT, NOT DISPOSABLE, ANY TYPE [facility] PATIENT EDUCATION, NOT OTHERWISE CLASSIFIED, NON-PHYSICIAN PROVIDER, GROUP, PER SESSION [facility] SCREENING TEST OF VISUAL ACUITY, QUANTITATIVE, BILATERAL [facility] TYPHOID VACCINE, CAPSULAR POLYSACCHARIDE (VICPS), FOR INTRAMUSCULAR USE [facility] SCREENING TEST OF VISUAL ACUITY, QUANTITATIVE, BILATERAL [facility] Screening Test Of Visual Acuity, Quantitative, Bilateral Screening Test Of Visual Acuity, Quantitative, Bilateral 62379 019 ALEC MEYERS [facility] Hepatitis A And Hepatitis B (Intramuscular Use) Adult Dosage Hepatitis A And Hepatitis B (Intramuscular Use) Adult Dosage 91499 ZAKIA LAM DoD Immunization Administration By Injection, One Vaccine Immunization Administration By Injection, One Vaccine 47044 ZAKIA LAM DoD Vaccines Adenovirus Type 7 Live, For Oral Use Vaccines Adenovirus Type 7 Live, For Oral Use 92174 ROBERT REEVES A single vaccine dose adminstered orally. DoD Vaccines Adenovirus Type 4 Live, For Oral Use Vaccines Adenovirus Type 4 Live, For Oral Use 75035 ROBERT REEVES A single vaccine dose adminstered orally. DoD Immunization Admin Intranasal / Oral Each Additional Vaccine Immunization Admin Intranasal / Oral Each Additional Vaccine 65843 ROBERT REEVES DoD Influenza Virus Vaccine Intranasal Live Attenuated Influenza Virus Vaccine Intranasal Live Attenuated 68635 ROBERT REEVES Flumist: Each sprayer contains a single dose of Flumist; approximately one-half of the contents was administered into each nostril. Patient was observed for 15 min with no adverse reactions. DoD Immunization Admin By Intranasal / Oral Route One Vaccine Immunization Admin By Intranasal / Oral Route One Vaccine 82251 ROBERT REEVES DoD Immunization Administration By Injection, Each Additional Vaccine Immunization Administration By Injection, Each Additional Vaccine 72730 ROBERT REEVES DoD Physician Supervised Injection Intramuscular Antibiotic Physician Supervised Injection Intramuscular Antibiotic 79202 ROBERT REEVES DoD Tdap Vaccine Tdap Vaccine 55039 ROBERT REEVES Visit for an IM injection of 0.5mL of Boostrix (Tetanus and Diphtheria Toxoids and Acellular Pertussis). Was given in the Right Deltoid. Patient was observed for 15 min with no adverse reactions. [facility] Meningococcal Polysaccharide Diphtheria Toxoid Conjugate Vaccine ROBERT REEVES Visit for an IM injection of 0.5mL of Meningococcal Vaccine (Menactra). Was given in the Left Deltoid. Patient was observed for 15 min with no adverse reactions. DoD Vaccines Viral Polio, Inactivated Vaccines Viral Polio, Inactivated 29994 ROBERT REEVES Visit for an IM injection of 0.5mL of IPOL (Poliovirus Vaccine Inactivated). Was given in the Right Deltoid. Patient was observed for 15 min with no adverse reactions. DoD Hepatitis A And Hepatitis B (Intramuscular Use) Adult Dosage Hepatitis A And Hepatitis B (Intramuscular Use) Adult Dosage 09288 ROBERT REEVES Visit for an IM injection of 1mL of Twinrix (Hepatitis A and B combination). Was given in the Right Deltoid. Patient was observed for 15 min with no adverse reactions. DoD Injection, penicillin g benzathine, 100,000 units ROBERT REEVES Visit for an IM injection of 1.2 million/units per 2 mL of Bicillin L-A (Penicillin G Benxathine injectable suspension). Was given in the Left upper quadrant, left buttock. Patient was observed for 15 min with no adverse reactions. [facility] Skin Test Anergy Tuberculin Intradermal Skin Test Anergy Tuberculin Intradermal 41115 ROBERT REEVES Visit for intradermal tuberculin testing of 0.1mL of Mantoux (Tuberculin Purified Protein Derivative). Was given in the Left forearm, volar surface. Patient was observed for 15 min with no adverse reactions. [facility] Spectacles Services Fitting Monofocal Except For Aphakia Spectacles Services Fitting Monofocal Except For Aphakia 77999 AVI ROSAS Determination Of Refractive State Determination Of Refractive State 09539 AVI ROSAS Ophthalmological New Patient Start Comprehensive Care Ophthalmological New Patient Start Comprehensive Care 20294 AVI ROSAS Ear mold/insert, not disposable, any type CHERIE GONZALES Physician Supervised Group Educational Services Physician Supervised Group Educational Services 85180 CHERIE GONZALES Audiometry Group Testing Audiometry Group Testing 89404 CHERIE GONZALES Screening Test Of Visual Acuity, Quantitative, Bilateral Screening Test Of Visual Acuity, Quantitative, Bilateral 20924 ELMER BETANCUR Threshold Audiogram (Pure Tone) Automated [...] smoking status MAIS VA-TOBACCO NEVER USED 11/20/2022 [place] History of tobacco use VA-TOBACCO NEVER USED 11/26/2021 [place] History of tobacco use VA-TOBACCO NEVER USED 04/21/2020 [facility] This section is an empty social history section. [facility] Plan of Care List of future care activities from Department of Veterans Affairs facilities. Additional future care activities may be listed in the Assessment and Plan section. Date/Time Care Activity Care Activity Detail Facili 01/20/2025 AMBULATORY - PSYCHIATRY AMBULATORY - [facility] 04/12/2025 AMBULATORY - MEDICINE AMBULATORY - MEDICI [facility] 04/26/2025 AMBULATORY - NONE AMBULATORY - NONE [facility] 12/02/2024 Consult Order [facility]Y Cons Sales Representative Door To Door's Choice [facility]
--- OUTSIDE RECORDS SUMMARY | 2025-01-03 08:52 | XMS_ITS | Encounter Summary ---
Author Organization [facility] Address [address] [place] [address] Care Team Providers Care Education Department Chair Name Role Phone Unavailable Primary Care Provider Unavailabl e Reason for Referral * Urology (Routine) - Pending Review Specialty Diagnoses / Procedures Referred By Contac t Referred To Contact Urology Diagnoses Flank pain Urinary crystals Nena Ortiz MD [address] [place] [address] Ephraim Espinal MD [address] [place] [address] Referral ID Status Reason Start Date Expiration Date Visits Requested Visits Authorized [id number] Pending Review Consult 12/24/2024 12/25/2025 1 1 Encounter Details Date Type Department Care Team (Latest Contact Info) Description 12/24/2024 Transcribe Orders [facility] Urologic Surgery [address] [id number] Nena Ortiz MD [address] [place] [address] Flank pain (Primary Dx); Urinary crystals Social [...]
--- OUTSIDE RECORDS SUMMARY | 2025-01-03 08:52 | XMS_ITS | Clinical Summary ---
Author Organization [facility] Address [address] [place] [address] Care Team Providers Care Lock Expert Name Role Phone Unavailable Primary Care Provider Unavailabl e Encounters Date Type Department Care Team Description 12/24/2024 Orders Only [facility] Urologic Surgery [address] [place] [phone] Nena Ortiz MD 12/24/2024 Transcribe Orders [facility] Urologic Surgery [address] [phone] Nena Ortiz MD Flank pain [...]
--- OUTSIDE RECORDS SUMMARY | 2025-01-03 08:52 | XMS_ITS | Encounter Summary ---
Author Organization [facility] Address [address] [place] [address] Care Team Providers Care Grants Manager Name Role Phone Unavailable Primary Care Provider Unavailabl e Encounter Details Date Type Department Care Team (Late st Contact Info) Description 09/08/2020 Lab Requisition EM Lab DOC: Raudel Rodriguez [address] [place] [phone] Michele Hwang PA-C [address] [place] [address] Encounter for laboratory testing for COVID-19 virus [...] (COVID-19), Qual (09/08/2020 3:27 PM EDT) Pathologist [facility] SARS CoV 2 RNA, Qual NOT DETECTED NOT DETECTED 09/10/2020 5:00 AM EDT [facility] Comment: A [...] providers and patients using the following websites: https://www.Bueeno.[facility]/home/Covid-19/HCP/QuestLDTP/ fact-sheet https://www.Bueeno.[facility]/home/Covid-19/Patients/QuestLDTP/ fact-sheet.html This test has been authorized by the FDA under an Emergency Use Authorization (EUA) for use by authorized laboratories. Due to the current public health emergency, [facility] is receiving a high volume of samples [...] about COVID-19 can be found at the [facility] website: www.UClass.[facility]/Covid19. Microbiology Nasopharyngeal swab / Unknown 09/08/2020 3:27 PM EDT 09/08/2020 3:27 PM EDT Narrative [facility] - 09/10/2020 5:00 AM EDT Performing Organization Information: ?Site ID: [id number] ?Name: [facility] ?Address: [address] [place] [address],[place] [address] ?Director: JAMIA CANNON MD Performed at [facility] License number [id number] Michele Hwang PA-C MICROBIOLOGY - [place]ER[place] ORDERABLES Performing Organization Address City/State/[facility] Co de Phone Number [facility] documented in this encounter Visit Diagnoses Diagnosis Encounter for laboratory testing for COVID-19 virus documented in this encounter
--- OUTSIDE RECORDS SUMMARY | 2025-01-03 08:52 | XMS_ITS | Encounter Summary ---
Author Organization [facility] Address [address] [place] [address] Care Team Providers Care Dandy Tender Name Role Phone Unavailable Primary Care Provider Unavailabl e Encounter Details Date Type Department Care Team (Late st Contact Info) Description 08/18/2020 Lab Requisition [facility] Testing [address] [phone] Michele Hwang PA-C [address] [place] [address] Encounter for laboratory testing for COVID-19 virus [...] DETECTED NOT DETECTED 08/20/2020 12:00 AM EDT [facility] [...] providers and patients using the following websites: https://www.Nambii.VOZ/home/Covid-19/HCP/QuestLDTP/ fact-sheet https://www.Beststudy/home/Covid-19/Patients/QuestLDTP/ fact-sheet.html This test has been authorized by the FDA under an Emergency Use Authorization (EUA) for use by authorized laboratories. Due to the current public health emergency, [facility] is receiving a high volume of samples [...] about COVID-19 can be found at the [facility] website: www.[employer].VOZ/Covid19. Microbiology Nasopharyngeal swab / Unknown 08/18/2020 3:51 PM EDT 08/18/2020 3:51 PM EDT [facility] - 08/20/2020 12:00 AM EDT Performing Organization Information: ?Site ID: [id number] ?Name: [facility] ?Address: [address] [place] [address],[place] [address] ?Director: JAMIA CANNON MD Performed at [facility] License number [id number] Michele Hwang PA-C MICROBIOLOGY - NERAL ORDERABLES Performing Organization Address City/State/[facility] Co de Phone Number [facility] documented in this encounter Visit Diagnoses Diagnosis Encounter for laboratory testing for COVID-19 virus documented in this encounter
[2025-01-03 09:02] LABS: MANUAL DIFF FLAG NO
[2025-01-03 09:37] LABS: Basophils Absolute Auto 0.1 X10*3/uL (0.0-0.2); Basophils Percent Auto 1.4 % (0-2); Eosinophils Absolute Auto 0.5 X10*3/uL (0.0-0.4); Eosinophils Percent Auto 8.4 % (0-4); Hematocrit 42.6 % (42.0-52.0); Hemoglobin 14.6 g/dl (14.0-18.0); Imm Gran Abs Auto 0.01 X10*3/uL (0.00-0.03); Imm Gran Pct Auto 0.2 % (0.0-0.4); Immature Retic Fraction 10.4 % (2.3-13.4); Lymphocytes Absolute Auto 1.8 X10*3/uL (1.2-4.9); Lymphocytes Percent Auto 27.8 % (20-40); Mean Corpuscular HGB Conc 34.3 g/dl (31.0-36.0); Mean Corpuscular Hemoglobin 27.1 pg (27.0-33.0); Mean Corpuscular Volume 79.2 fL (80.0-98.0); Mean Platelet Volume 9.6 fL (9.4-12.4); Monocytes Absolute Auto 0.6 X10*3/uL (0.1-1.2); Monocytes Percent Auto 8.8 % (2-11); Neutrophils Absolute Auto 3.4 x10*3/uL (2.0-8.3); Neutrophils Percent Auto 53.4 % (45-73); Platelet Count 274 X10*3/uL (160-400); Red Blood Count 5.38 X10*6/uL (4.60-5.80); Red Cell Distribution Width 13.8 % (11.0-16.0); Retic HGB Equivalent 30.4 pg (30.0-35.0); Reticulocyte Percent 1.4 % (0.5-1.8); Reticulocytes Absolute 0.075 X10*6/uL (0.026-0.095); White Blood Count 6.3 X10*3/uL (4.8-10.8)
[2025-01-03 10:14] LABS: Alanine Aminotransferase 55 U/L (0-40); Albumin Level 4.5 g/dL (3.5-5.0); Alkaline Phosphatase 52 U/L (39-117); Anion Gap 11 (12-20); Aspartate Amino Transferase 33 U/L (5-37); Blood Urea Nitrogen 10 mg/dL (9-16); Calcium 9.7 mg/dL (8.4-10.2); Carbon Dioxide 25 mmol/L (22-29); Chloride 108 mmol/L (96-108); Cholesterol 173 mg/dL (<200); Estimated Glomerular Filt Rate > 60; Glucose Random 100 mg/dL (60-115); HDL Cholesterol 36 mg/dL (>40); Iron 81 mcg/dL (45-160); LDL Cholesterol Calculated 92 mg/dL (<100); Percent Iron Saturation 37 % (15-50); Sodium 140 mmol/L (135-145); Total Iron Binding Capacity 221 mcg/dL (228-428); Total Protein 7.9 g/dL (6.5-8.0); Triglycerides 228 mg/dL (<150); Unsaturated Iron Binding 140 ug/dL
[2025-01-03 10:31] LABS: Ferritin 235 ng/mL (20-250); Free T4 (Free Thyroxine) 0.96 ng/dL (0.71-1.85); Thyroid Stimulating Hormone 2.83 uIU/mL (0.32-4.0)
[2025-01-03 10:36] LABS: Folate 7.6 ng/mL (> or = 4.0); Vitamin B12 532 pg/mL (200-900)
[2025-01-03 10:37] LABS: Estimated Average Glucose 111 mg/dL; Hemoglobin A1c % 5.5 % (<6.0); Total Hemoglobin (HGBA1C) 3783.8514 umol/L
== END 2025-01-03 08:48 | disposition home or self-care (01) ==
LOC: HO.LAB 08:47
PROVIDERS: PCP Internal Medicine; Visit Provider Internal Medicine
DX: R73.02 Impaired glucose tolerance (oral) (principal); E78.00 Pure hypercholesterolemia, unspecified
CPT/HCPCS: 36415; 80053; 80061; 82607; 82728; 82746; 83036; 83540; 84439; 84443; 85025; 85045

== ENCOUNTER 2025-01-21 08:55 | Outpatient (REF) | payer BC, SELFPAY ==
--- NOTE | ~2025-01-21 | US_ITS ---
CLINICAL HISTORY: R79.89 - Other specified abnormal findings of blood chemistry US abdomen limited Comparison: None Findings: The visualized pancreas is normal. The aorta and inferior vena cava are normal caliber. The liver is normal in size and increased in echotexture. There is no intrahepatic bile duct dilatation. The common duct is 3 mm in diameter. The gallbladder is normal. There is no sonographic Haywood sign. The main portal vein is antegrade. The right kidney is 10 cm in length. No ascites. IMPRESSION: Mild hepatic steatosis. No acute process This document has been electronically signed by: Giovani Baugh MD on 01/22/2025 05:50:49
--- OUTSIDE RECORDS SUMMARY | 2025-01-21 09:33 | XMS_ITS | Continuity of Care Document ---
Author Organization [facility] Shayan Sánchez [facility] [place] Address [address] [facility] [address] [place] [address] Care Team Providers Care Custodial Manager Name Role Phone CITLALI KENNEY Primary Care Provider CITLALI KENNEY Referring Provider SABA KWOK Propeller Engineer [phone] Assessment Encounter Date Assessment Date Assessment LastModified [...] Time Details Appointments WC FOLLOW -UP 025 09:30AM Fozia Steinberg PA-C Not available Not available Not available Lab None record ed. Referral None record ed. Procedures None record ed. Surgeries None record ed. Imaging None record ed. Medication Orders None record ed. Patient TargetsNo targets recorded. Patient Instructions Encounter Date Encounter Id Patient Instructions Last Modified By Organization Details Last Modified Time 12/23/2024 [id number] Weightbearing x-rays of the left foot and ankle were obtained on 10/28/2024 which is negative for acute fracture. No evidence of periosteal stress reaction. No widening of the Lisfranc complex. [email or web address] Not available 11/25/2024 08:29:38 Reason for Referral [...] Organization Details Recorded Time Strain of foot [id number] Active 025 Almita Thompson MD [address], [place], [address] , [place] [facility] [place], 10:20:55 Problem Notes None recorded. Medical Equipment [...] Not Available Not Available No t Available meloxicam 15 mg tablet TAKE 1 [...] Not Available Not Available No t Available atovaquone 750 mg/5 mL oral suspension TAKE 5ML BY MOUTH 2 TIMES A DAY FOR 7 DAYS MUST ADMINISTE R WITH FOOD, PREFERABL Y A HIGH-FAT MEAL active Not Available Not Available No t [...] Updated DateTime 12/23/2024 180.34 cm 39.1 kg/m2 210356.[address] [place] [facility] [place], 12/23/2024 09:50:01 Social History None recorded. Functional Status None recorded. Mental Status None recorded. Family History Nothing Reported. Medical History No medical history recorded. Past Encounters Encounter ID Performer Location Encounter Start Date Encounter Closed Date Diagnosis/Indication Diagnosis SNOMED-CT Code Diagnosis ICD10 Code Diagnosis Note [id number] Almita Thompson MD [address] [place] [address] 12/23/2024 09:48:32 12/23/2024 10:25:26 Strain of foot 3278339363 9 S96.912D Health Concerns Section Related Observation LastModified by Organization Detai ls LastModified Time None Recorded Concern Status LastModified by Organization Details LastModified Time None Recorded Payers Encounter Date Sequence Insurance Name Policy Number Policy Gloria Covered Member ID Gloria Member ID Guarantor Name 12/23/2024 [facility] Mahindra REVA [facility] [id number] Other Thuan Nguyen Notes Date [...] no medical history. 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 He drinks about 4 alcoholic drinks per week. Almita Thompson MD [address], [place], [address], [place] [facility], P 12/26/2024 19:04:57
--- OUTSIDE RECORDS SUMMARY | 2025-01-21 09:33 | XMS_ITS ---
Author Organization [facility] Address [address] [address] Care Team Providers Care Computational Biologist Name Role Phone Nena Ortiz Primary Care Provider REASON FOR VISIT Labs Encounters Encounter Location Date Provider Diagnosis [facility] [address] [address] 12/27/2024 Nena Ortiz Plan Of Treatment No Information Progress Notes * TIFFANY FelicianosDOB:1990 (34 yo M)Acc No.[id number]:12/27/2024 Patient:?Thuan ALLEN :1990???Age:34 Y???Sex:Male Address:[facility] [place], [address] * true * Date:? Generated for Faizan lundberg/Barbra/eTransmitting on:?01/21/2025 09:33 AM EST
--- OUTSIDE RECORDS SUMMARY | 2025-01-21 09:34 | XMS_ITS | Encounter Summary ---
Author Name [facility] [place] Organization [facility] [place] Address [address] [place] [address] Support Name Relationship Address Phone TIFFANY LEIGHTON Next of Kin [address] [place] [address] LEIGHTON ALLEN Emergency Contact [address] [place] [address] Care Team Providers Care Pile Driver Operator Barge Mounted Name Role Phone CORINNA SEVILLA Primary Care [...] CT DEPT OF COR Aug 17, 2020 [id number] ALLEN,CAR LOS PATIENT BCBS [place] (BLUE CARD) PREFERRED PROVIDER ORGANIZAT ION (PPO) ST OF [facility] DEPT OF COR Aug 17, 2020 [id number] 00H [id number] ALLEN,CAR LOS PATIENT CAREMARK PRESCRIPT ION [facility] Aug 17, 2020 [id number] [phone] ALLEN,CAR LOS PATIENT [facility] PRESCRIPT ION [facility] Aug 17, 2020 [id number] ALLEN,CAR LOS PATIENT Selected Encounter This section includes the information on record at [place] for the Encounter. Date/Time Encounter Type Encounter Description Reason Provider Source Jan 20, 2025 08:30 AM OFFICE O/P EST MOD 30 MIN MENTAL [facility]ALTH CLINIC - IND ICD-10-CM F43.12 Post-traumatic stress disorder, chronic HARVEYHEAVENLYPERRI Vieyra Katie Encounter Template Text not used by [place] Assessments - Encounter Diagnoses This section includes the primary and secondary diagnoses documented for the Encounter. Date/Time Primary/Secondary Diagnosis Diagnosis Name Provider Source Jan 20, 2025 12:06 PM PRIMARY Post-traumatic stress disorder, chronic MIGUELITO GABRIEL [place] Plan of Treatment: Future Appointments (+ 6 months) and Future Tests (+/- 45 days) The Plan of Treatment section includes future care activities for the patient from all [place] [facility]fa[facility]. This section includes future appointments and [...] 10, 2025 08:30 AM AMBULATORY - [facility]ATRY [facility] April 12, 2025 09:30 AM [facility] Apr 26, 2025 03:00 PM [facility] Social History: Smoking Status (Most current) [...] Mayra olivarez Nov 20, 2022 01:00 PM [place]-TOBACCO NEVER USED [place] Tobacco Use History This section includes a history of the smoking, or tobacco-related health factors, that were collected on or before the date of the Encounter. The data comes from the [place] facility where the Encounter took place. Date/Time Smoking Status/Tobacco Use Comment Megan mcconnell Nov 26, 2021 11:30 AM [place]-TOBACCO NEVER USED [place] Encounter Notes: All associated encounter notes This [...] Resources Only: E911 (Emergency Call Relay Center): [phone] [facility] Crisis Line - 988 then press #1. [facility] Suicide Coordinator [phone], Ext. [phone]; Back-up Ext. [phone] [place] Police, IMTIAZSandra, Darryl [phone] Introduction: Visit is being conducted by MT [employer]. [place] identified with 2 identifiers: [X] Full Name [X] Date of [ ] [place] ID Card Emergency Plan: confirmed and/or provided the following information in case of emergency or technology failure. PATIENT PHONE - PHONE NUMBER [CELLULAR] - Is patient phone number correct, if not, enter below: [place]'s phone number: DENISSE ALLEN [address] [place] [address], [phone] [place]'s present location and address for appointment: [facility] [place], [place] 's emergency contact name and phone number: chart reported that location is private and safe: Yes Informed Consent: informed of the risks and benefits of Telehealth video care. has the right to refuse video services. If refuses video visit, a unuk-tw-rlmc visit will be scheduled. 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 Chronic Post-Traumatic Stress Disorder ([facility] [id number]) 4. Major depressive disorder 5. Comanagement 6. [...] helpful h/o low dose elavil for ARIAS rob hassan IMPRESSION: DSM-5 PTSD, chronic -- 70 % sc Major depression, improved r/o alcohol use do -- pt reports very limited use PLAN: I performed careful risk assessment. See [place]-SSRS 04/01 - same today. Patient also has important protective factors, his children and family. The pt is probably low risk for suicide or violence -- the patient denied suicidal and violent ideation, but the [employer] Crisis Line information and number were reviewed w patient as a precaution over the phone. The patient also understands to call 911 or to go to ER in the event of an emergency. Again, another discussion re psychotherapy (to help w coping w stressors) -- pt now has [facility] therapy consult pending for Giovani Garcia [address] [place] [address] Phone/ (call this number) pt will call to set up appt Also has-- Ariane for couples therapy-- again, pt feels this helps when can set up. I again reviewed evidenced based psychotherapies for ptsd w pt. I offered him a therapist within the [place], but the patient declines at this point, [...] By: 01/20/2025 13:58 /mercedes/ CALI GUSTAFSON ADVANCED FINGERPRINT TECHNICIAN MIGUELITO GABRIEL
--- OUTSIDE RECORDS SUMMARY | 2025-01-21 09:34 | XMS_ITS | Encounter Summary ---
Author Name [facility] [place] [facility] [place] [facility] [place] [facility] [place] Address [address] [place] [address] Support Name Relationship Address Phone TIFFANY LEIGHTON Next of Kin [address] [place] [address] LEIGHTON ALLEN Emergency Contact [address] [place] [address] Care Team Providers Care Glove Tagger Name Role Phone CORINNA SEVILLA Primary Care [...] [facility] Aug 17, 2020 [id number] ALLEN,CAR LOS PATIENT [place] ([place]UE CARD) PREFERRED PROVIDER ORGANIZAT ION (PPO) [facility] DEPT [facility] Aug 17, 2020 [id number] ALLEN,CAR LOS PATIENT [facility]EMARK PRESCRIPT ION [facility] Aug 17, 2020 [id number] ALLEN,CAR LOS PATIENT [facility] PRESCRIPT ION [facility] Aug 17, 2020 [id number] ALLEN,CAR LOS PATIENT Selected Encounter This section includes the information on record at [place] for the Encounter. Date/Time Encounter Type Encounter Description Reason Provider Source Dec 23, 2024 09:00 AM TELEHEALTH FACILITY FEE SLEEP STUDY ICD-10-CM G47.30 Sleep apnea, unspecified PEDRO MAGALLON Katie Encounter Template Text not used by [place] Assessments - Encounter Diagnoses This section includes the primary and secondary diagnoses documented for the Encounter. Date/Time Primary/Secondary Diagnosis Diagnosis Name Provider Source Jan 18, 2025 07:26 AM PRIMARY Sleep apnea, unspecified SHANTALHAOKatiePEDROJAE ALEXUS KIMBERLY Plan of Treatment: Future Appointments (+ 6 months) and Future Tests (+/- 45 days) The Plan of Treatment section includes future care activities for the patient from all [place] [facility]. This section includes future appointments and future orders which are active, pending or scheduled. Future Appointments This section includes appointments that were scheduled to occur 6 months from the date of the Encounter, up to a maximum of 20 appointments. The data comes from all [place] treatment facilities. Appointment Date/Time Appointment Type Appointme nt Facility Name Dec 30, 2024 11:00 AM AMBULATORY - NONE [facility] [place] [facility] Jan 13, 2025 08:30 AM AMBULATORY - MEDICINE [facility] Jan 20, 2025 08:30 AM AMBULATORY - PSYCHIATRY [facility] Mar 10, 2025 08:30 AM AMBULATORY - PSYCHIATRY [facility] April 12, 2025 09:30 AM AMBULATORY - MEDICINE [facility] [place] [facility] Apr 26, 2025 03:00 PM [facility] Active, Pending, and Scheduled Orders This section includes a listing of several types of active, pending, and scheduled orders, including clinic medications orders, diagnostic test orders, procedure orders and consult orders; where the start date of the order is 45 days before the date of the Encounter or 45 days after the date of theEncounter. The data comes from all [place] treatment facilities. Test Date/Time Test Type Test Details Facility Name Dec 02, 2024 09:37 AM Consult Order [facility]- PSYCHOTHERAPY Cons Burrer Operator's Choice [facility] Social History: Smoking Status (Most current) [...] 20, 2022 01:00 PM VA-TOBACCO NEVER USED [facility] Tobacco Use History This section includes a history of the smoking, or tobacco-related health factors, that were collected on or before the date of the Encounter. The data comes from the [place] facility where the Encounter took place. Date/Time Smoking Status/Tobacco Use Comment Megan acility Nov 26, 2021 11:30 AM VA-TOBACCO NEVER USED [facility] Encounter Notes: All associated encounter notes This section contains the clinical notes associated to the Encounter. Date/Time Encounter Note(s) Provider Source Dec 23, 2024 10:00 AM TELEHEALTH NOTE: LOCAL TITLE: TELEHEALTH NOTE STANDARD TITLE: TELEHEALTH NOTE DATE OF NOTE: DEC 23, 2024@10:00 ENTRY DATE: DEC 27, 2024@02:18 AUTHOR: IKER MAGALLON EXP COSIGNER: URGENCY: STATUS: COMPLETED TELEHEALTH NOTE Has ADDENDA DENISSE ALLEN checked-in with this cardiothoracic anesthesia technician at: [facility] CVT HOMESLP 1A PT. Banquete identified with 2 identifiers: [X] Full Name [ ] Date of [X] Full SSN [ ] VA ID Card Patient consented to participate in the scheduled Clinical Video Telehealth (CVT) appointment: Yes. Appointment Date/Time: Dec@09:00 KHARI MCMANUS SOLE RUFFER Conducted this ppointment/session from [facility]) via Clinical Video Telehealth. DX per Telehealth Provider: G47.30 Additional Information: NONE AT THIS TIME. /mercedes/ IKER MAGALLON TELEHEALTH CLINICAL TECHNIAN (TCT) Signed: 12/27/2024 02:29 01/14/2025 ADDENDUM STATUS: COMPLETED Sleep apnea, unspecified (ICD-10-CM G47.30) (Primary) /aaron MAGALLON TELEHEALTH CLINICAL TECHNIAN (TCT) Signed: 01/14/2025 11:34 IKER MAGALLON
--- OUTSIDE RECORDS SUMMARY | 2025-01-21 09:34 | XMS_ITS | Data Portability ---
Author Organization [facility] Shayan Sánchez [facility] [place] Address [address] [place] [address] Care Team Providers Care Field Kiln Burner Name Role Phone CITLALI KENNEY Primary Care Provider CITLALI KENNEY Referring Provider SABA KWOK Accounting File Clerk Assessment Encounter Date Assessment Date Assessment LastModified [...] physical examination, tests/diagnostic imaging, and treatment plan [email or web address] Not available 10/28/2024 09:40:50 12/23/2024 12/23/2024 I reviewed his MRI. There is no significant evidence of a stress fracture or an injury that I can appreciate. He does report ongoing pain, limping, and inability to return to his job. I have offered him a short boot today for immobilization, recommended ice, anti-inflammatorie s, and to take his meloxicam that he [...] improve their function. Not available 12/26/2024 19:04:32 01/20/2025 01/20/2025 He is now approximately 8 months from his foot injury. He feels like he is still unable to return to work in any meaningful capacity outside of light duty. He feels like he cannot run or pivot or push off. We discussed that he essentially has a normal MRI, no swelling, and fairly diffuse pain over his foot. I do not have any further recommendations for him other than to continue physical therapy. He will follow-up in 6 weeks for repeat evaluation. Not available 01/20/2025 10:48:57 Plan of Treatment Reminders Order Date Submit Date Provider Last Modified By Organization Details Last Modified Time Details Appointments WC FOLLOW-UP 2024 09:30A Sandra Steinberg PA-C Not available Not available Not available Lab None recorded. Referral None recorded. Procedures None recorded. Surgeries None recorded. Imaging XR, ankle, 3 or more view 2023 024 [email or web address] [facility], [address], [place], [address], 10/28/2024 10:36:43 XR, foot, 2 view 2023 024 [email or web address] [facility], [address], [place], [address], 10/28/2024 10:36:43 MRI, foot, w/o contrast - Rule out edema in the fourth and fifth metatarsa ls, rule out occult fracture, work injury 4 months ago, failed conservat vaughn care 2023 024 [facility] Not available 12/06/2024 15:29:06 Medication Orders None recorded. Patient TargetsNo targets recorded. Patient Instructions Encounter Date Encounter Id Patient Instructions Last Modified By Organization Details Last Modified Time 10/28/2024 [id number] Weightbearing x-rays of the left foot and ankle were obtained on 10/28/2024 which is negative for acute fracture. No evidence of periosteal stress reaction. No widening of the Lisfranc complex. Not available 10/28/2024 09:41:08 12/23/2024 [id number] Weightbearing x-rays of the left foot and ankle were obtained on 10/28/2024 which is negative for acute fracture. No evidence of periosteal stress reaction. No widening of the Lisfranc complex. [email or web address] Not available 11/25/2024 08:29:38 01/20/2025 [id number] Weightbearing x-rays of the left foot and ankle were obtained on 10/28/2024 which is negative for acute fracture. No evidence of periosteal stress reaction. No widening of the Lisfranc complex. Not available 01/20/2025 08:22:38 Reason for Referral None Reported. Results Created [...] Organization Details Recorded Time Strain of foot 36923938574 Active 025 Almita Thompson MD [address], [place], [address] , [place] [facility], 10:20:55 Problem Notes None recorded. Procedures Surgical [...] Updated DateTime 10/28/2024 180.34 cm 39.1 kg/m2 730004.86 g AADMA STEINBERG PA-C [address], [place], [address], [place] [facility] 10/28/2024 09:28:58 Date Recorded Body height Body mass index (BMI) Body weight Provider Name and Address Organization Details Last Updated DateTime 12/23/2024 180.34 cm 39.1 kg/m2 842054.[address] [place] [facility] 12/23/2024 09:50:01 Date Recorded Body height Body mass index (BMI) Body weight Provider Name and Address Organization Details Last Updated DateTime 01/20/2025 180.34 cm 39.1 kg/m2 525184.[address] [place] [facility] 01/20/2025 09:10:53 Social History None recorded. Functional Status None recorded. Mental Status None recorded. Family History Nothing Reported. Medical History No medical history recorded. Past Encounters Encounter ID Performer Location Encounter Start Date Encounter Closed Date Diagnosis/Indication Diagnosis SNOMED-CT Code Diagnosis ICD10 Code Diagnosis Note [id number] Almita Thompson MD [facility] [place] [address] [address] 10/28/2024 09:05:04 10/28/2024 09:52:11 Ankle pain 155595731 M25.572 Pain in left foot 711484 8072 60583 M79.672 [id number] Almita Thompson MD J[facility] [address] [address] 12/23/2024 09:48:32 12/23/2024 10:25:26 Strain of foot 3160956679 9 S96.912D [id number] MD BROOK[place] [address] [address] 01/20/2025 08:59:53 01/20/2025 09:37:45 Strain of foot 4573260953 9 S96.912D Health Concerns Section Related Observation LastModified by Organization Detai ls LastModified Time None Recorded Concern Status LastModified by Organization Details LastModified Time None Recorded Advance Directives Directive None Recorded Payers Encounter Date Sequence Insurance Name Policy Number Policy Gloria Covered Member ID Gloria Member ID Guarantor Name 10/28/2024 [id number] Other Thuan Nguyen 12/23/2024 [id number] Farncisca Nguyen 01/20/2025 [id number] Francisca Nguyen Notes Date Note [...] no medical history. 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 He drinks about 4 alcoholic drinks per week. ADAMA STEINBERG PA-C [address], [place], [address], [place] [facility] 10/28/2024 09:42:03 12/23/2024 text/html Date of [...] no medical history. 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 He drinks about 4 alcoholic drinks per week. Almita Thompson MD [address], [place], [address], [place] [facility] 12/26/2024 19:04:57 01/20/2025 text/html Date of injury: 07/03/24 Thuan Nguyen is a 34 year old male who presents today for follow-up evaluation regarding his left foot. He has worn the boot for the last 4 weeks. He has been attending physical therapy. He is attending and resilience. He notes his physical therapist has recommended that he be able to get out of the boot. We put him in the boot to give him additional soft tissue rest as he continues to complain of ongoing pain. He reports otherwise, his symptoms are unchanged. He notes a litany of things that he still feels like he cannot perform at his job including any running, restraints, or full duty work. From 12/23/24 ([facility]): for follow-up evaluation regarding his left foot and ankle. He reports that when the injury occurred, he had instant pain and was immediately limping. He notes that he has not been immobilized at all up to this point. He feels like he is still unable to participate in his job. He was given meloxicam [...] no medical history. 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 He drinks about 4 alcoholic drinks per week. Almita Thompson MD [address], [place], [address], [facility] 01/20/2025 10:49:04
--- OUTSIDE RECORDS SUMMARY | 2025-01-21 09:34 | XMS_ITS | Clinical Summary ---
Author Organization [facility] Address [address] [place] [address] Care Team Providers Care Parts Analyst Name Role Phone Rosamaria Sam MD Primary Care Provider [phone] Allergies No known active allergies Medications No [...] age to complete this topic Care Teams Parts Analyst Relationship Specialty Start Date End Date Flaco, Rosamaria Jerome MD [address] [place] [address] [address] [facility] [place] [address] PCP - General Internal Medicine 07/03/24
--- OUTSIDE RECORDS SUMMARY | 2025-01-21 09:35 | XMS_ITS ---
Author Organization [facility] Address [address] [address] Care Team Providers Care Distribution Tech Name Role Phone Nena Ortiz Primary Care Provider REASON FOR VISIT Needs R/S cancelled appr Encounters Encounter Location Date Provider Diagnosis [facility] [address] [address] 01/11/2025 Nena Ortiz Plan Of Treatment No Information Progress Notes * Feliciano ALLENsDOB:1990 (34 yo M)Acc No.[id number]:01/11/2025 Patient:?Thuan ALLEN :1990???Age:34 Y???Sex:Male Address:[facility] [place], [address] * * Date:?
--- OUTSIDE RECORDS SUMMARY | 2025-01-21 09:35 | XMS_ITS | Continuity of Care Document ---
Author Organization [facility] Shayan Sánchez [facility]ONE [place] Address [address] [facility] [address] [place] [address] Care Team Providers Care Dental Chair Assembler Name Role Phone CITLALI KENNEY Primary Care Provider CITLALI KENNEY Referring Provider SABA KWOK Executive Vice President Of Sales Assessment Encounter Date Assessment Date Assessment LastModified by Organization Details LastModified Time 01/20/2025 01/20/2025 He is now approximately 8 [...] Modified By Organization Details Last Modified Time 01/20/2025 [id number] Weightbearing x-rays of the left foot and ankle were obtained on 10/28/2024 which is negative for acute fracture. No evidence of periosteal stress reaction. No widening of the Lisfranc complex. Not available 01/20/2025 08:22:38 Reason for Referral None Reported. Problems Name Problem SNOMED Code Status Onset Date Resolution Date Notes Provider Name and Address Organization Details Recorded Time Strain of foot 09595950300 Active 025 Almita Thompson MD [address], [place], [address] , [place] [facility] [place] 10:20:55 Problem Notes None recorded. Medical Equipment [...] MOUTH TWICE A DAY FOR 5 DAYS 02/06 /2025 completed Not Available Not Available Not Available [...] Updated DateTime 01/20/2025 180.34 cm 39.1 kg/m2 296712.[address] [facility] [place] 01/20/2025 09:10:53 Social History None recorded. Functional Status None recorded. Mental Status None recorded. Family History Nothing Reported. Medical History No medical history recorded. Past Encounters Encounter ID Performer Location Encounter Start Date Encounter Closed Date Diagnosis/Indication Diagnosis SNOMED-CT Code Diagnosis ICD10 Code Diagnosis Note [id number] Almita Thompson MD [facility] [place] [address] [facility] [address] [place] [address] 12/23/2024 09:48:32 12/23/2024 10:25:26 Strain of foot 7386680989 9 S96.912D [id number] MD BR[place]N [place] [address] [facility] [address] [place] [address] 01/20/2025 08:59:53 01/20/2025 09:37:45 Strain of foot 3588017505 9 S96.912D Health Concerns Section Related Observation LastModified by Organization Detai ls LastModified Time None Recorded Concern Status LastModified by Organization Details LastModified Time None Recorded Payers Encounter Date Sequence Insurance Name Policy Number Policy Gloria Covered Member ID Gloria Member ID Guarantor Name 01/20/2025 R[employer]OES [employer] [facility] [id number] Other Thuan Nguyen Notes Date Note Type Note Provider Name and Address Organization Details Recorded Time 01/20/2025 text/html Date of injury: 07/03/24 Thuan [...] restraints, or full duty work. From 12/23/24 ([facility]): for follow-up evaluation regarding his left foot [...] no medical history. 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 He drinks about 4 alcoholic drinks per week. Almita Thompson MD [address], [place], [address], [place] [facility] [place] 01/20/2025 10:49:04
--- OUTSIDE RECORDS SUMMARY | 2025-01-21 09:35 | XMS_ITS | Continuity of Care Document ---
Author Name [facility] Organization [facility] Care Team Providers Care Banana Room Cutter Name Role Phone [facility] Unavailable Unavailable Problems [...] [facility] [place] [facility] Chronic Post-Traumatic Stress Disorder ([facility] [id number]) Active Condition Oct 13, 2023 Entered By: MIGUELITO GABRIEL Comment: reviewed [place] Comanagement Active Condition Dec 01, 2022 Entered By: RUTHIE ESTEBAN Comment: Belén Knight [facility] Exposure to potentially hazardous substance Active Condition Dec 15, 2022 Entered By: JANEY RODRIGEZ Comment: [place] (6[facility]) History of [facility] Active Condition [facility] Major depressive disorder Active Condition Jan 25, 2021 Entered By: MIGUELITO GABRIEL Comment: reviewedAug 20, 2021 Entered By: MIGUELITO GABRIEL Comment: reviewedOct 13, 2023 Entered By: MIGUELITO GABRIEL Comment: reviewed [facility] Migraine Active Condition Jul 25 Entered By: RUTHIE ESTEBAN Comment: followed by Dr. Vo [facility] Sleep apnea Active Condition Sep 09, 2022 Entered By: RUTHIE ESTEBAN Comment: unable to tolerate PAP therapy [facility] Affective disorder Inactive Condition 10/13/2023 [facility] Chronic post-traumatic stress disorder Inactive Condition 08/20/2021 [place] contact dermatitis Active Condition DoD patient function at time of event - activity Active Condition [facility] location of accident - training facility Inactive Condition DoD a fall Inactive Condition [facility] contusion with intact skin surface - hand [...] exam for hearing conservation, treatment Inactive Condition [facility] Diagnosis: ICD-10-CM F43.12 Post-traumatic stress disorder, chronic Active Diagnosis [place] Diagnosis: ICD-10-CM R06.83 Snoring Active Diagnosis [place] Diagnosis: ICD-10-CM K03.0 Excessive attrition of teeth Active Diagnosis [facility] Diagnosis: ICD-10-CM G47.30 Sleep apnea, unspecified Active Diagnosis [facility] ([facility]) Diagnosis: ICD-10-CM G47.33 Obstructive sleep apnea (adult) (pediatric) Active Diagnosis [facility] Diagnosis: ICD-10-CM K03.6 Deposits [accretions] on teeth Active Diagnosis [facility] Diagnosis: ICD-10-CM M54.59 Other low back pain Active Diagnosis [place] Medications Combined list of outpatient medications from Department of [facility] and [facility] Affairs facilities.Medications provided include 1) outpatient medications from the last 15 months, and 2) patient-reported medications. Medication Details Route Status Patient Instructions Prescription Expires Prescription Number Last Dispense Date Ordering Provider Order Date Order Qty Source AMITRIPTYLI NE HCL 10MG TAB TAKE ONE TABLET BY MOUTH AT BEDTIME ORAL ACTIVE Guy GABRIEL 2023 [facility] IELD sertraline (U/D) 25 MG ORAL TAB TAKE ONE TABLET BY MOUTH ONCE DAILY FOR MOOD 10/13/2024 [id number] MIGUELITO GABRIEL 2023 60 [facility] SERTRALINE HCL 25MG TAB TAKE ONE TABLET BY MOUTH ONCE DAILY FOR POSTTRAU MATIC STRESS SYNDROME ORAL DISCONT INUED (EDIT) 08/06/2025 [id number] Guy GABREIL 2023 60 [facility] IELD SERTRALINE HCL 25MG TAB TAKE ONE TABLET BY MOUTH ONCE DAILY FOR MOOD ORAL DISCONT INUED 10/13/2024 [id number] Guy GABRIEL 2022 60 [facility] IELD SODIUM FLUORIDE 1.1% TOOTHPASTE BRUSH SMALL AMOUNT TO TEETH TWICE DAILY FOR TOOTH DECAY PREVENTI ON DENTAL ACTIVE 10/12/2025 [id number] 4 Geraldine KEYES 2023 51 [facility] UBROGEPANT TAB TAKE BY MOUTH ONE TIME ORAL ACTIVE Guy GABRIEL 2023 [facility]ELD Allergies, Adverse Reactions, Alerts Combined list of allergies from Department of [facility]og[facility] and Veterans Affairs facilities. It does not include entries that were removed or entered in error. Substance Category Reaction Severity Reaction type Status Date Reported Comments Source No Known Allergies Drug allergy (disorder) active 08/24/2013 Pr[facility] [place] Immunizations Combined list of available immunizations from the Department of Defense and Veterans Affairs facilities. Immunization Series Date Given Administered By Site Reaction Lot Number CVX Code Drug General Office Worker Status Comments Source influenza, injectable, quadrivalent, contains preservative 1 2018 [id number] [employer] (SEQ) complet ed influenza , injectabl e, quadrival ent, contains preservat vaughn DoD anthrax vaccine 1 2018 [id number] [facility] ([facility] complet ed anthrax vaccine DoD typhoid Vi capsular polysaccharid e vaccine 1 2018 [id number] Sanofi Pasteur (PMC) complet ed typhoid Vi capsular polysacch aride vaccine DoD Influenza, seasonal, injectable, preservative free 1 2017 [id number] [employer] (SEQ) comple t ed Influenza , seasonal, injectabl e, preservat vaughn free DoD Influenza, injectable, quadrivalent, preservative free 1 2017 UNK 150 Unknown (UNK) comple t ed Influenza , injectabl e, quadrival ent, preservat vaughn free DoD Influenza, seasonal, injectable, preservative free 1 2016 [id number] 140 Unknown (UNK) comple t ed Influenza , seasonal, injectabl e, preservat vaughn free DoD Influenza, seasonal, injectable, preservative free 1 2015 [id number] 140 Other (OTH) complet ed Influenza , seasonal, injectabl e, preservat vaughn free DoD Influenza, seasonal, injectable, preservative free 1 2014 [id number] 140 Other (OTH) complet ed Influenza , seasonal, injectabl e, preservat vaughn free DoD hepatitis B vaccine, adult dosage 3 2013 [id number] 43 Other (OTH) complet ed hepatitis B vaccine, adult dosage DoD hepatitis A vaccine, adult dosage 3 2013 [id number] 52 Other (OTH) complet ed hepatitis A vaccine, adult dosage DoD Influenza, seasonal, injectable, preservative free 1 2013 [id number] 140 [employer] (SKB) complet ed Influenza , seasonal, injectabl e, preservat vaughn free DoD hepatitis A and hepatitis B vaccine 2 2012 [id number] 104 [employer] (SKB) complet ed hepatitis A and hepatitis B vaccine DoD measles, mumps and rubella virus vaccine 1 2012 UNK 03 Unknown (UNK) Not Given measles, mumps and rubella virus vaccine DoD varicella virus vaccine 1 2012 UNK 21 Unknown (UNK) Not Given varicella virus vaccine DoD hepatitis A and hepatitis B vaccine 1 2012 [id number] 104 [employer]ine (SKB) complet ed hepatitis A and hepatitis B vaccine DoD Adenovirus, type 4 and type 7, live, oral 1 2012 [id number] 143 [employer] (BRR) complet ed Adenoviru s, type 4 and type 7, live, oral DoD influenza, live, intranasal, quadrivalent 1 2012 [id number] 149 CS [employer] (CSL) complet ed influenza , live, intranasa l, quadrival ent DoD poliovirus vaccine, inactivated 1 2012 [id number] 10 Sanofi Pasteur (PMC) complet ed polioviru s vaccine, inactivat ed DoD meningococcal polysaccharid e (groups A, C, Y and W-135) diphtheria toxoid conjugate vaccine (MCV4P) 1 2012 [id number] 114 [employer]ine (SKB) complet ed meningoco ccal polysacch aride (groups A, C, Y and W-135) diphtheri a toxoid conjugate vaccine (MCV4P) DoD tetanus toxoid, reduced diphtheria toxoid, and acellular pertu is vaccine, adsorbed 1 2012 [id number] 115 Sanofi Pasteur (PMC) complet ed tetanus [...] Sep 17, 2023 11:53 AM Reporting Lab: [place] [address] [place] [address] Performing Lab: [facility] [place] [facility] [address] [address] [facility] LIPID PANEL FASTING CHOLESTEROL [MASS/VOLUM E] IN SERUM OR PLASMA 168 mg/dL 09/17 Specimen Type: SERUM No comment entered. Ordering Provider: JOSHUA ESTEBAN Report Released Date/Time: March 19, 2023 04:54 PM Reporting Lab: [facility] [facility] [address] [address] Performing Lab: [facility] [facility] [address] [address] [facility] [facility] LIPID PANEL FASTING TRIGLYCERID E [MASS/VOLUM E] IN SERUM OR PLASMA 185 mg/dL 0 - 150 09/17 H Specimen Type: SERUM No comment entered. Ordering Provider: JOSHUA ESTEBAN Report Released Date/Time: March 19, 2023 04:54 PM Reporting Lab: [facility] [place] [facility] [address] [address] Performing Lab: [facility] [place] [facility] [address] [address] [facility] LIPID PANEL FASTING CHOLESTEROL IN LDL [MASS/VOLUM E] IN SERUM OR PLASMA BY CALCULATION 91 mg/dL 0 - 129 09/17 Specimen Type: SERUM No comment entered. Ordering Provider: JOSHUA ESTEBAN Report Released Date/Time: March 19, 2023 04:54 PM Reporting Lab: [facility] [place] [facility] [address] [address] Performing Lab: [facility] [place] [address] [address] [facility] [place] [facility] LIPID PANEL FASTING CHOLESTEROL .TOTAL/CHOL ESTEROL IN HDL [MASS RATIO] IN SERUM OR PLASMA 4.2 09/17 Specimen Type: SERUM No comment entered. Ordering Provider: JOSHUA ESTEBAN Report Released Date/Time: March 19, 2023 04:54 PM Reporting Lab: [facility] [place] [facility] [address] [address] Performing Lab: [facility] [place] [facility] [address] [address] [facility] [place] [facility] LIPID PANEL FASTING CHOLESTEROL IN HDL [MASS/VOLUM E] IN SERUM OR PLASMA 40 mg/dL 40 - 60 09/17 Specimen Type: SERUM No comment entered. Ordering Provider: JOSHUA ESTEBAN Report Released Date/Time: March 19, 2023 04:54 PM Reporting Lab: [facility] [place] [facility] [address] [address] Performing Lab: [facility] [place] [facility] [address] [address] [facility] LIVER FUNCTION PROTEIN [MASS/VOLUM E] IN SERUM OR PLASMA 7.5 g/dL 6.0 - 8.3 09/17 Specimen Type: SERUM No comment entered. Ordering Provider: JOSHUA ESTEBAN Report Released Date/Time: March 19, 2023 04:54 PM Reporting Lab: [facility] [place] [facility] [address] [address] Performing Lab: [facility] [place] [facility] [address] [address] [facility] [place] [facility] LIVER FUNCTION ALBUMIN [MASS/VOLUM E] IN SERUM OR PLASMA 4.3 g/dL 3.5 - 5.0 09/17 Specimen Type: SERUM No comment entered. Ordering Provider: JOSHUA ESTEBAN Report Released Date/Time: March 19, 2023 04:54 PM Reporting Lab: [facility] [place] [facility] [address] [address] Performing Lab: [facility] [place] [facility] [address] [address] [facility]N [facility] LIVER FUNCTION ALKALINE PHOSPHATASE [ENZYMATIC ACTIVITY/VO LUME] IN SERUM OR PLASMA 49 U/L 40 - 150 09/17 Specimen Type: SERUM No comment entered. Ordering Provider: JOSHUA ESTEBAN Report Released Date/Time: March 19, 2023 04:54 PM Reporting Lab: [facility] [place] [facility] [address] [address] Performing Lab: [facility] [place] [facility] [address] [address] [facility] [place] [facility] LIVER FUNCTION ASPARTATE AMINOTRANSF ERASE [ENZYMATIC ACTIVITY/VO LUME] IN SERUM OR PLASMA 19 U/L 5 - 34 09/17 Specimen Type: SERUM No comment entered. Ordering Provider: JOSHUA ESTEBAN Report Released Date/Time: March 19, 2023 04:54 PM Reporting Lab: [facility] [place] [address] [address] Performing Lab: [facility] [place] [address] [address] [facility] [place] [facility] LIVER FUNCTION ALANINE AMINOTRANSF ERASE [ENZYMATIC ACTIVITY/VO LUME] IN SERUM OR PLASMA 30 U/L 09/17 Specimen Type: SERUM No comment entered. Ordering Provider: JOSHUA ESTEBAN Report Released Date/Time: March 19, 2023 04:54 PM Reporting Lab: [facility] [place] [address] [address] Performing Lab: [facility] [place] [address] [address] [facility] [place] [facility] LIVER FUNCTION BILIRUBIN.T OTAL [MASS/VOLUM E] IN SERUM OR PLASMA 0.8 mg/dL 0.2 - 1.2 09/17 Specimen Type: SERUM No comment entered. Ordering Provider: JOSHUA ESTEBAN Report Released Date/Time: March 19, 2023 04:54 PM Reporting Lab: [facility] [place] [address] [address] Performing Lab: [facility] [place] [address] [address] [facility] [place] [facility] BASIC METABOLIC PANEL (fasting) UREA NITROGEN [MASS/VOLUM E] IN SERUM OR PLASMA 13 mg/dL 7 - 25 09/17 Specimen Type: SERUM No comment entered. Ordering Provider: JOSHUA ESTEBAN Report Released Date/Time: March 19, 2023 04:54 PM Reporting Lab: [facility] [address] [address] Performing Lab: [facility] [address] [address] [facility] BASIC METABOLIC PANEL (fasting) GLUCOSE [MASS/VOLUM E] IN SERUM OR PLASMA 92 mg/dL 65 - 100 09/17 Specimen Type: SERUM No comment entered. Ordering Provider: JOSHUA ESTEBAN Report Released Date/Time: March 19, 2023 04:54 PM Reporting Lab: [facility] [address] [address] Performing Lab: [address] [address] [facility] BASIC METABOLIC PANEL (fasting) SODIUM [MOLES/VOLU ME] IN SERUM OR PLASMA 139 mmol/L 135 - 145 09/17 Specimen Type: SERUM No comment entered. Ordering Provider: JOSHUA ESTEBAN Report Released Date/Time: March 19, 2023 04:54 PM Reporting Lab: [address] [address] Performing Lab: [facility] [address] [address] [facility] BASIC METABOLIC PANEL (fasting) POTASSIUM [MOLES/VOLU ME] IN SERUM OR PLASMA 4.2 mmol/L 3.5 - 5.0 09/17 Specimen Type: SERUM No comment entered. Ordering Provider: JOSHUA ESTEBAN Report Released Date/Time: March 19, 2023 04:54 PM Reporting Lab: [address] [address] Performing Lab: [facility] [address] [address] [facility] BASIC METABOLIC PANEL (fasting) CHLORIDE [MOLES/VOLU ME] IN SERUM OR PLASMA 105 mmol/L 100 - 110 09/17 Specimen Type: SERUM No comment entered. Ordering Provider: JOSHUA ESTEBAN Report Released Date/Time: March 19, 2023 04:54 PM Reporting Lab: [facility] [address] Performing Lab: [facility]ITAL[facility]ITALTRN [facility] [address] [address] [facility] BASIC METABOLIC PANEL (fasting) CARBON DIOXIDE, TOTAL [MOLES/VOLU ME] IN SERUM OR PLASMA 26 meq/L 20 - 30 09/17 Specimen Type: SERUM No comment entered. Ordering Provider: JOSHUA ESTEBAN Report Released Date/Time: March 19, 2023 04:54 PM Reporting Lab: [facility] [address] [address] Performing Lab: [facility]ITAL[facility]ITALTRN [facility] [address] [facility] BASIC METABOLIC PANEL (fasting) CREATININE [MASS/VOLUM E] IN SERUM OR PLASMA 1.11 mg/dL 0.50 - 1.40 09/17 Specimen Type: SERUM No comment entered. Ordering Provider: JOSHUA ESTEBAN Report Released Date/Time: March 19, 2023 04:54 PM Reporting Lab: [facility]ITAL[facility]LMORE [facility]PITALTRN [address] [address] Performing Lab: [facility]ITAL[facility]ITALTRN [facility] [address] [facility] BASIC METABOLIC PANEL (fasting) GLOMERULAR FILTRATION RATE/1.73 SQ M.PREDICTED [VOLUME RATE/AREA] IN SERUM, PLASMA OR BLOOD BY CREATININE- BASED FORMULA (CKD-EPI 2020) 90 mL/min 60 09/17 Specimen Type: SERUM No comment entered. Ordering Provider: JOSHUA ESTEBAN Report Released Date/Time: March 19, 2023 04:54 PM Reporting Lab: [facility] [place] [place] [address] [address] Performing Lab: [facility] [address] [address] [facility] [place] [facility] TSH THYROTROPIN [UNITS/VOLU ME] IN SERUM OR PLASMA 2.26 u[IU]/ mL 0.35 - 5.00 09/17 Specimen Type: SERUM No comment entered. Ordering Provider: JOSHUA ESTEBAN Report Released Date/Time: March 19, 2023 04:54 PM Reporting Lab: [place] [facility] TRN [address] [address] Performing Lab: [facility] [address] [address] [facility] HEMOGLOBI N A1C PANEL HEMOGLOBIN A1C/HEMOGLO [...] March 19, 2023 04:54 PM Reporting Lab: [facility] [address] Performing Lab: [facility] TR[facility] [address] [facility]ITALRNOL[facility]ONN [facility] CBC AND DIFF (AUTO) LEUKOCYTES [#/VOLUME] IN BLOOD BY AUTOMATED COUNT 11.72 10*3/u L 4.50 - 11.00 09/17 H Specimen Type: BLOOD No comment entered. Ordering Provider: JOSHUA ESTEBAN Report Released Date/Time: March 19, 2023 04:54 PM Reporting Lab: [facility] [place] [facility] [address] [address] Performing Lab: [facility] [place] [facility] [address] [address] [facility] [place] [facility] CBC AND DIFF (AUTO) ERYTHROCYTE S [#/VOLUME] IN BLOOD BY AUTOMATED COUNT 5.54 10*6/u L 4.23 - 5.66 09/17 Specimen Type: BLOOD No comment entered. Ordering Provider: JOSHUA ESTEBAN Report Released Date/Time: March 19, 2023 04:54 PM Reporting Lab: [facility] [place] [facility] [address] [address] Performing Lab: [facility] [place] [address] [address] [facility] [place] [facility] CBC AND DIFF (AUTO) HEMOGLOBIN [MASS/VOLUM E] IN BLOOD 14.9 g/dL 12.8 - 17 09/17 Specimen Type: BLOOD No comment entered. Ordering Provider: JOSHUA ESTEBAN Report Released Date/Time: March 19, 2023 04:54 PM Reporting Lab: [facility] [place] [address] [address] Performing Lab: [facility] [place] [facility] [address] [address] [facility] [place] [facility] CBC AND DIFF (AUTO) HEMATOCRIT [VOLUME FRACTION] OF BLOOD BY AUTOMATED COUNT 45.1 39.2 - 50.4 09/17 Specimen Type: BLOOD No comment entered. Ordering Provider: JOSHUA ESTEBAN Report Released Date/Time: March 19, 2023 04:54 PM Reporting Lab: [facility] [address] [address] Performing Lab: [facility] [place] [address] [address] [facility] [place] [facility] CBC AND DIFF (AUTO) MCV [ENTITIC VOLUME] BY AUTOMATED COUNT 81.4 fL 82 - 99 09/17 L Specimen Type: BLOOD No comment entered. Ordering Provider: JOSHUA ESTEBAN Report Released Date/Time: March 19, 2023 04:54 PM Reporting Lab: [facility] [place] [facility] [address] [address] Performing Lab: [facility] [place] [facility] [address] [address] [facility] [place] [facility] CBC AND DIFF (AUTO) MCHC [MASS/VOLUM E] BY AUTOMATED COUNT 33.0 g/dL 30.8 - 35.1 09/17 Specimen Type: BLOOD No comment entered. Ordering Provider: JOSHUA ESTEBAN Report Released Date/Time: March 19, 2023 04:54 PM Reporting Lab: [facility] [place] [facility] [address] [address] Performing Lab: [facility] [place] [facility] [address] [address] [facility] [place] [facility] CBC AND DIFF (AUTO) PLATELETS [#/VOLUME] IN BLOOD BY AUTOMATED COUNT 294 10*3/u L 140 - 360 09/17 Specimen Type: BLOOD No comment entered. Ordering Provider: JOSHUA ESTEBAN Report Released Date/Time: March 19, 2023 04:54 PM Reporting Lab: [facility] [place] [facility] [address] [address] Performing Lab: [facility] [place] [facility] [address] [address] [facility] [place] [facility] CBC AND DIFF (AUTO) ERYTHROCYTE DISTRIBUTIO N WIDTH [RATIO] BY AUTOMATED COUNT 13.9 12.0 - 16.0 09/17 Specimen Type: BLOOD No comment entered. Ordering Provider: JOSHUA ESTEBAN Report Released Date/Time: March 19, 2023 04:54 PM Reporting Lab: [facility] [place] [facility] [address] [address] Performing Lab: [facility] [place] [facility] [address] [address] [facility] [place] [facility] CBC AND DIFF (AUTO) MONOCYTES [#/VOLUME] IN BLOOD BY AUTOMATED COUNT 0.96 10*3/u L 0.30 - 1.10 09/17 Specimen Type: BLOOD No comment entered. Ordering Provider: JOSHUA ESTEBAN Report Released Date/Time: March 19, 2023 04:54 PM Reporting Lab: [facility] [address] [address] Performing Lab: [facility] [place] [address] [address] [facility] [place] [facility] CBC AND DIFF (AUTO) MCH [ENTITIC MASS] BY AUTOMATED COUNT 26.9 pg 26.2 - 32.6 09/17 Specimen Type: BLOOD No comment entered. Ordering Provider: JOSHUA ESTEBAN Report Released Date/Time: March 19, 2023 04:54 PM Reporting Lab: [facility] [place] [address] [address] Performing Lab: [facility] [place] [address] [address] [facility] CBC AND DIFF (AUTO) NEUTROPHILS /100 LEUKOCYTES IN BLOOD BY AUTOMATED COUNT 76.1 43.7 - 75.8 09/17 H Specimen Type: BLOOD No comment entered. Ordering Provider: JOSHUA ESTEBAN Report Released Date/Time: March 19, 2023 04:54 PM Reporting Lab: [facility] [place] [address] [address] Performing Lab: [facility] [place] [address] [address] [facility] [place] CBC AND DIFF (AUTO) LYMPHOCYTES /100 LEUKOCYTES IN BLOOD BY AUTOMATED COUNT 13.8 14.0 - 42.3 09/17 L Specimen Type: BLOOD No comment entered. Ordering Provider: JOSHUA ESTEBAN Report Released Date/Time: March 19, 2023 04:54 PM Reporting Lab: [facility] [place] [address] [address] Performing Lab: [facility] [place] [facility] [address] [facility] [address] [facility] [facility] CBC AND DIFF (AUTO) MONOCYTES/1 00 LEUKOCYTES IN BLOOD BY AUTOMATED COUNT 8.2 5.1 - 13.7 09/17 Specimen Type: BLOOD No comment entered. Ordering Provider: JOSHUA ESTEBAN Report Released Date/Time: March 19, 2023 04:54 PM Reporting Lab: [facility] [address] [address] Performing Lab: [facility] [facility] [address] [address] [facility] CBC AND DIFF (AUTO) EOSINOPHILS /100 LEUKOCYTES IN BLOOD BY AUTOMATED COUNT 1.1 0.4 - 6.8 09/17 Specimen Type: BLOOD No comment entered. Ordering Provider: JOSHUA ESTEBAN Report Released Date/Time: March 19, 2023 04:54 PM Reporting Lab: [facility] [address] [address] Performing Lab: [facility] [address] [address] [facility] CBC AND DIFF (AUTO) BASOPHILS/1 00 LEUKOCYTES IN BLOOD BY AUTOMATED COUNT 0.5 0.1 - 2.0 09/17 Specimen Type: BLOOD No comment entered. Ordering Provider: JOSHUA ESTEBAN Report Released Date/Time: March 19, 2023 04:54 PM Reporting Lab: [facility] [address] [address] Performing Lab: [facility] [address] [address] [facility] CBC AND DIFF (AUTO) NEUTROPHILS [#/VOLUME] IN BLOOD BY AUTOMATED COUNT 8.91 10*3/u L 2.20 - 7.60 09/17 H Specimen Type: BLOOD No comment entered. Ordering Provider: JOSHUA ESTEBAN Report Released Date/Time: March 19, 2023 04:54 PM Reporting Lab: [facility] [address] [facility] [address] Performing Lab: [facility] [place] [facility] [address] [address] [facility] CBC AND DIFF (AUTO) LYMPHOCYTES [#/VOLUME] IN BLOOD BY AUTOMATED COUNT 1.62 10*3/u L 1.00 - 3.20 09/17 Specimen Type: BLOOD No comment entered. Ordering Provider: JOSHUA ESTEBAN Report Released Date/Time: March 19, 2023 04:54 PM Reporting Lab: [facility] [place] [facility] [address] [address] Performing Lab: [facility] [address] [address] [facility] CBC AND DIFF (AUTO) EOSINOPHILS [#/VOLUME] IN BLOOD BY AUTOMATED COUNT 0.13 10*3/u L 0.03 - 0.44 09/17 Specimen Type: BLOOD No comment entered. Ordering Provider: JOSHUA ESTEBAN Report Released Date/Time: March 19, 2023 04:54 PM Reporting Lab: [facility] [address] [address] Performing Lab: [facility] [address] [address] [facility] CBC AND DIFF (AUTO) BASOPHILS [#/VOLUME] IN BLOOD BY AUTOMATED COUNT 0.06 10*3/u L 0.01 - 0.13 09/17 Specimen Type: BLOOD No comment entered. Ordering Provider: JOSHUA ESTEBAN Report Released Date/Time: March 19, 2023 04:54 PM Reporting Lab: [facility] [place] [facility] [address] [address] Performing Lab: [facility] [address] [place] [address] [facility] CBC AND DIFF (AUTO) IMMATURE GRANULOCYTE S/100 LEUKOCYTES IN BLOOD BY AUTOMATED COUNT 0.3 0.0 - 0.7 09/17 Specimen Type: BLOOD No comment entered. Ordering Provider: JOSHUA ESTEBAN Report Released Date/Time: March 19, 2023 04:54 PM Reporting Lab: [facility] [address] [address] Performing Lab: [facility] [address] [address] [facility] CBC AND DIFF (AUTO) IMMATURE GRANULOCYTE S [#/VOLUME] IN BLOOD 0.04 10*3/u L 0.00 - 0.06 09/17 Specimen Type: BLOOD No comment entered. Ordering Provider: JOSHUA ESTEBAN Report Released Date/Time: March 19, 2023 04:54 PM Reporting Lab: [facility] [address] [address] Performing Lab: [address] [address] [facility] Encounters Combined list of: 1) Encounters from Department of Veterans Affairs facilities going backup to the last 18 months, not all OR inpatient encounters are included; 2) Encounters from the Department of Defense facilities going backup to 280 months. Location Location Details Encounter Type Encounter Number Reason For Visit Attending Provider ADM Date DC Date Status Disposition Source [place]) OUTPATIENT [id number] Notes Entered by: CHERIE GONZALES 28 Jul 2013 1407 ------- ------- ------- ------- -- Hearing test CHERIE GONZALES 07/28 Released w/o Limitations [place] ) [place] OUTPATIENT [id number] SHUBHAM MAK 07/29 Released w/o Limitations [place] [place] [facility] [id number] Notes Entered by: Christina MCKEON 30 Jul 2013 1007 ------- ------- ------- ------- -- IMM LEANDRO ROBERT T 07/30 Released w/o Limitations [place] ) [place]) OUTPATIENT [id number] Notes Entered by: MADELINE MEDELLIN 24 Aug 2013 0701 ------- ------- ------- ------- -- ORTHO- HAND MILLY DIAZ 08/24 Released with Work/Duty Limitations [place]) [place]) OUTPATIENT [id number] Notes Entered by: RODRIGUE NOBLES 13 Sep 2013 0826 ------- ------- ------- ------- -- IMM-ZAKIA SNYDER 09/13 Released w/o Limitations [place]) OUTPATIENT [id number] Notes Entered by: RODRIGUE NOBLES 01 Oct 2013 0702 ------- ------- ------- ------- -- DERM ZAKIA Bella 10/01 Released w/o Limitations [place]) [place] [address]) OUTPATIENT [id number] Notes Entered by: AMANDA HUGHES 30 Dec 2018 0843 ------- ------- ------- ------- -- TENNILLE/ ALEC GARCIA 12/30 Released w/o Limitations [place]([facility] [address]) [facility] Facility OUTPATIENT [id number] Theater Provider 05/08 Released w/o Limitations [facility] OUTPATIENT [id number] Theater Provider 05/09 Released w/o Limitations [facility] OUTPATIENT [id number] 2 Theater Provider 05/12 Released w/o Limitations [facility] OUTPATIENT [id number] Theater Provider 05/23 Released w/o Limitations [facility] OUTPATIENT [id number] Theater Provider 05/24 Released w/o Limitations [facility] OUTPATIENT [id number] Theater Provider 06/28 Released w/o Limitations [facility] OUTPATIENT [id number] Theater Provider 07/03 Released with Work/Duty Limitations [facility] OUTPATIENT [id number] Theater Provider 07/08 Released w/o Limitations [facility] OUTPATIENT [id number] 2 Theater Provider 07/09 Released w/o Limitations [facility] OUTPATIENT [id number] Theater Provider 07/29 Released w/o Limitations [facility] OUTPATIENT [id number] Theater Provider 08/07 Released w/o Limitations [facility] OUTPATIENT [id number] Theater Provider 08/15 Released w/o Limitations [facility] OUTPATIENT [id number] 3 Theater Provider 08/28 Released w/o Limitations [facility] OUTPATIENT [id number] 8 Theater Provider 08/28 Released with Work/Duty Limitations [facility] OUTPATIENT [id number] 2 Theater Provider 09/01 Released w/o Limitations [facility] OUTPATIENT [id number] 1 Theater Provider 09/10 Released w/o Limitations [facility] OUTPATIENT [id number] 5 Theater Provider 09/15 Sick at Home/Quarter s [facility] OUTPATIENT [id number] 3 Theater Provider 09/16 [facility] OUTPATIENT [id number] 5 Theater Provider 09/17 Sick at Home/Quarter s [facility] OUTPATIENT [id number] 4 Theater Provider 10/09 Released w/o Limitations Theater Fac[facility] [place] [address]) OUTPATIENT [id number] Notes Entered by: SARAI MARQUEZ 25 Nov 2019 1127 ------- ------- ------- ------- -- ELMER SOARES 11/25 Released w/o Limitations [place]([facility] [address]) [place]) OUTPATIENT [id number] Notes Entered by: CAM HU I 25 Nov 2019 1240 ------- ------- ------- ------- -- POST JADE HO I 11/25 Released w/o Limitations [place]) [place] Physical Exam [facility]) OUTPATIENT [id number] Notes Entered by: ASAD STEEL 25 Nov 2019 1305 ------- ------- ------- ------- -- HERMAN 638 SELENA REDDY 11/25 Released w/o Limitations [place] Physica l Exam Clinic) [facility] [place] Outpatient Encounter [id number] 09/05 [facility] [place] [facility] OFFICE O/P EST MOD 30-39 MIN [id number] Diagnos is: ICD-10- CM M54.59 Other low back pain Zaheer ESTEBAN 09/17 [facility] [place] Outpatient Encounter [id number] 09/19 [facility] [place] [facility] Outpatient Encounter [id number] 09/24 [facility] En[facility] [id number] 09/26 [facility] Encounter [id number] 09/26 [facility] Encounter [id number] 09/26 [facility] Encounter [id number] 09/30 [facility] En[facility] [id number] 10/02 [facility] [place] [facility] En[facility] [id number] [facility] EST [facility] 40-54 MIN [id number] Diagnos is: ICD-10- CM F43.12 Post-tr aumatic stress disorde r, chronic [facility] GABRIEL G 10[place]13 [place] [facility] En[facility] [id number] 11/03 [facility] [place] Outpatient Encounter [id number] 12/18 [facility] [place] Outpatient Encounter [id number] Diagnos is: ICD-10- CM F43.12 Post-tr aumatic stress disorde r, chronic ST T[facility] GABRIEL G 12/18 [place] [facility] Encounter [id number] 12/22 [facility] Encounter [id number] 02/11 [facility] Encounter [id number] 02/19 [facility] OFFICE O/P NEW LOW 30 MIN [id number] Diagnos is: ICD-10- CM G47.33 Obstruc tive sleep apnea (adult) (pediat sarah) PRISCA KEYES 02/22 [facility] En[facility] [id number] 02/22 [facility] Encounter [id number] 03/26 [facility] [place] [place] [facility] [place] Outpatient Encounter [id number] 03/29 [facility] 40 MIN [id number] Diagnos is: ICD-10- CM F43.12 Post-tr aumatic stress disorde r, chronic GABRIEL,ST EPHEN G 04/01 [place] [facility] Out[facility] Encounter [id number] 04/23 [facility] ORAL DEVICE/RODDY LIANCE CUSFAB [id number] Diagnos is: ICD-10- CM G47.33 Obstruc tive sleep apnea (adult) (pediat sarah) PRISCA KEYES CTORIA J 04/26 [facility] En[facility] [id number] 06/01 [facility] OFFICE O/P EST LOW 20 MIN [id number] Diagnos is: ICD-10- CM G47.33 Obstruc tive sleep apnea (adult) ([facility]) PRISCA KEYES CTORIA J 06/02 [facility] Encounter [id number] 07/12 [facility] OFFICE O/P EST LOW 20 MIN [id number] Diagnos is: ICD-10- CM G47.33 Obstruc tive sleep apnea (adult) ([facility]) PRISCA KEYES CTORIA J 07/13 [facility] OFF[facility] O/P EST LOW 20 MIN [id number] Diagnos is: ICD-10- CM G47.33 Obstruc tive sleep apnea (adult) ([facility]) PRISCA KEYES CTORIA J 07/14 [facility] En[facility] [id number] 07/15 [facility] Encounter [id number] 07/26 [facility] OFF[facility] O/P EST LOW 20 MIN [id number] Diagnos is: ICD-10- CM G47.33 Obstruc tive sleep apnea (adult) (pediat sarah) PRISCA KEYES CTORIA J 07/27 [facility] Encounter [id number] 07/29 [facility] OFFICE O/P EST MOD 30 MIN [id number] 1BY. 12 Diagnos is: ICD-10- CM F43.12 Post-tr aumatic stress disorde r, chronic GABRIEL,ST EPHEN G 08/05 [place] [facility] Out[facility] Encounter [id number] 09/21 [facility] Encounter [id number] 09/24 [facility] Encounter [id number] 1.10/06 [facility] Encounter [id number] 1.10/08 [facility] [place] OFFICE O/P EST MOD 30 MIN [id number] Diagnos is: ICD-10- CM F43.12 Post-tr aumatic stress disorde r, chronic GABRIEL,ST EPHEN G 10/11 [place] [facility] COMPREHENS VE ORAL EVALUATION [id number] 1. Diagnos is: ICD-10- CM G47.33 Obstruc tive sleep apnea (adult) (pediat sarah) PRISCA KEYES CTORIA J 10/11 [facility] En[facility] [id number] 10/26 [facility] [place] [place] [facility] CASE MGMT-ORAL HEALTH LIT [id number] 1. Diagnos is: ICD-10- CM K03.6 Deposit s [accret ions] on teeth JOHNNA RODRIGUEZ K 10/27 [facility] OFFICE O/P EST LOW 20 MIN [id number] 1. Diagnos is: ICD-10- CM G47.33 Obstruc tive sleep apnea (adult) (pediat sarah) PRISCA KEYES J 11/02 [facility] [place] [place] [facility] [place] Outpatient Encounter [id number] 1.11/08 [facility] [place] [facility] [place] Outpatient Encounter [id number]/08 [facility] [place] [facility] [place] [facility] Outpatient Encounter [id number] 11/22 [facility] [place] [facility] SYNCH AUDIO-ONLY EST LOW 20 [id number] Diagnos is: ICD-10- CM F43.12 Post-tr aumatic stress disorde r, chronic GABRIEL,ST EPHEN G 12/02 [place] [facility] Outpatient Encounter [id number] 12/02 [facility] Encounter [id number] Sandra DAMIAN 12/09 [place] [facility] [place] [facility] TELEHEALTH FACILITY FEE [id number] Diagnos is: ICD-10- CM G47.30 Sleep apnea, unspeci fied Justus MAGALLON 12/23 [facility] (631GE) SLEEP STUDY UNATT&RESP EFFT [id number] Diagnos is: ICD-10- CM G47.30 Sleep apnea, unspeci fied VIDAFRANCISCO JAVIER Tovar 12/23 [facility] (6[facility] [place] [facility] RESIN TWO SURFACES-A NTERIOR [id number] Diagnos is: ICD-10- CM K03.0 Excessi ve attriti on of teeth MAXWELL CERON CTORIA J 12/30 [facility] [place] [facility] [place] [facility] Outpatient Encounter [id number] 01/11 [facility] [place] [facility] SLEEP STUDY UNATT&RESP EFFT [id number] Diagnos is: ICD-10- CM R06.83 Snoring FRANCISCO JAVIER MCPHERSON 01/13 [facility] OFFICE O/P EST MOD 30 MIN [id number] Diagnos is: ICD-10- CM F43.12 Post-tr aumatic stress disorde r, chronic GABRIEL,ST EPHEN G 01/20 [facility] Procedures Combined list of: 1) Procedures from Department of Veterans Affairs facilities going back up to thelast 18 months, not all OR non-surgical procedures are included; 2) All procedures from the Department of Defense facilities. Procedure Procedure Type Code Date Perfomer Comments Sourc e PATIENT EDUCATION, NOT OTHERWISE CLASSIFIED, NON-PHYSICIAN PROVIDER, GROUP, PER SESSION [facility] SCREENING TEST OF VISUAL ACUITY, QUANTITATIVE, BILATERAL [facility] TYPHOID VACCINE, CAPSULAR POLYSACCHARIDE (VICPS), FOR INTRAMUSCULAR USE [facility] SCREENING TEST OF VISUAL ACUITY, QUANTITATIVE, BILATERAL [facility] HEPATITIS A AND HEPATITIS B VACCINE (HEPA-HEPB), ADULT DOSAGE, FOR INTRAMUSCULAR USE [facility] ADENOVIRUS VACCINE, TYPE 7, LIVE, FOR ORAL USE [facility] FITTING OF SPECTACLES, EXCEPT FOR APHAKIA; MONOFOCAL [facility] EAR MOLD/INSERT, NOT DISPOSABLE, ANY TYPE [facility] Screening Test Of Visual Acuity, Quantitative, Bilateral Screening Test Of Visual Acuity, Quantitative, Bilateral 62264 ALEC MEYERS [facility] Hepatitis A And Hepatitis B (Intramuscular Use) Adult Dosage Hepatitis A And Hepatitis B (Intramuscular Use) Adult Dosage 58172 ZAKIA LAM Immunization Administration By Injection, One Vaccine Immunization Administration By Injection, One Vaccine 29997 ZAKIA LAM Vaccines Adenovirus Type 7 Live, For Oral Use Vaccines Adenovirus Type 7 Live, For Oral Use 26157 ROBERT REEVES A single vaccine dose adminstered orally. [facility] Vaccines Adenovirus Type 4 Live, For Oral Use Vaccines Adenovirus Type 4 Live, For Oral Use 30442 ROBERT REEVES A single vaccine dose adminstered orally. DoD Immunization Admin Intranasal / Oral Each Additional Vaccine Immunization Admin Intranasal / Oral Each Additional Vaccine 11794 ROBERT REEVES Influenza Virus Vaccine Intranasal Live Attenuated Influenza Virus Vaccine Intranasal Live Attenuated 74482 ROBERT REEVES Flumist: Each sprayer contains a single dose of Flumist; approximately one-half of the contents was administered into each nostril. Patient was observed for 15 min with no adverse reactions. DoD Immunization Admin By Intranasal / Oral Route One Vaccine Immunization Admin By Intranasal / Oral Route One Vaccine 78213 ROBERT REEVES Immunization Administration By Injection, Each Additional Vaccine Immunization Administration By Injection, Each Additional Vaccine 82694 ROBERT REEVES [facility] Physician Supervised Injection Intramuscular Antibiotic Physician Supervised Injection Intramuscular Antibiotic 62634 ROBERT REEVES [facility] Tdap Vaccine Tdap Vaccine 29284 ROBERT REEVES Visit for an IM injection of 0.5mL of Boostrix (Tetanus and Diphtheria Toxoids and Acellular Pertussis). Was given in the Right Deltoid. Patient was observed for 15 min with no adverse reactions. [facility] Meningococcal Polysaccharide Diphtheria Toxoid Conjugate Vaccine ROBERT REEVES Visit for an IM injection of 0.5mL of Meningococcal Vaccine (Menactra). Was given in the Left Deltoid. Patient was observed for 15 min with no adverse reactions. [facility] Vaccines Viral Polio, Inactivated Vaccines Viral Polio, Inactivated 61709 ROBERT REEVES Visit for an IM injection of 0.5mL of IPOL (Poliovirus Vaccine Inactivated). Was given in the Right Deltoid. Patient was observed for 15 min with no adverse reactions. [facility] Hepatitis A And Hepatitis B (Intramuscular Use) Adult Dosage Hepatitis A And Hepatitis B (Intramuscular Use) Adult Dosage 27097 ROBERT REEVES Visit for an IM injection of 1mL of Twinrix (Hepatitis A and B combination). Was given in the Right Deltoid. Patient was observed for 15 min with no adverse reactions. [facility] Injection, penicillin g benzathine, 100,000 units ROBERT REEVES Visit for an IM injection of 1.2 million/units per 2 mL of Bicillin L-A (Penicillin G Benxathine injectable suspension). Was given in the Left upper quadrant, left buttock. Patient was observed for 15 min with no adverse reactions. [facility] Skin Test Anergy Tuberculin Intradermal Skin Test Anergy Tuberculin Intradermal 87477 ROBERT REEVES Visit for intradermal tuberculin testing of 0.1mL of Mantoux (Tuberculin Purified Protein Derivative). Was given in the Left forearm, volar surface. Patient was observed for 15 min with no adverse reactions. [facility] [employer] Fitting Monofocal Except For Aphakia [employer] Fitting Monofocal Except For Aphakia 18039 AVI ROSAS Determination Of Refractive State Determination Of Refractive State 15498 AVI ROSAS Ophthalmological New Patient Start Comprehensive Care Ophthalmological New Patient Start Comprehensive Care 04814 AVI ROSAS Ear mold/insert, not disposable, any type CHERIE GONZALES [facility] Physician Supervised Group Educational Services Physician Supervised Group Educational Services 23261 CHERIE GONZALES [facility] Audiometry Group Testing Audiometry Group Testing 57434 CHERIE GONZALES [facility] Screening Test Of Visual Acuity, Quantitative, Bilateral Screening Test Of Visual Acuity, Quantitative, Bilateral 88875 ELMER BETANCUR [facility] Threshold Audiogram (Pure Tone) Automated Threshold Audiogram (Pure Tone) Automated 0208T RIKKI CORBIN Patient education, not otherwise cla ified, non-physician provider, group, per se ion RIKKI CORBIN [facility] Social History Combined list of available smoking, tobacco, and other social history from Department of Defense and Veterans Affairs facilities. Social History Type Response Date Comment Sourc e Tobacco smoking status NHIS [facility]-TO[facility]ACCO NEVER USED 11/20/2022 [facility] D History of tobacco use VA-TOBACCO NEVER USED 11/26/2021 [facility] D History of tobacco use [facility]-TOBACCO NEVER USED 04/21/2020 [facility] This section is an empty social history section. DoD Plan of Care List of future care activities from Department of Veterans Affairs facilities. Additional future care activities may be listed in the Assessment and Plan section. Date/Time Care Activity Care Activity Detail [facility] [facility] 03[facility]25 AMBULATORY - PSYCHIATRY AMBULATORY - PSYC [facility] 04/12/2025 AMBULATORY - MEDICINE AMBULATORY - MEDICI NE OR [facility] [place] [facility] 04/26/2025 AMBULATORY - NONE AMBULATORY - NONE [facility]RL [place] [place] [facility]
--- OUTSIDE RECORDS SUMMARY | 2025-01-21 09:35 | XMS_ITS | Patient Health Record ---
Author Organization Diana Barrett Md Address [address] [address] Care Team Providers Care Environmental Services Assistant Name Role Phone Nena Ortiz Primary Care Provider [phone] Allergies No Known Allergies Results Component Value Reference Range Notes TSH+FREE T4 Reviewed date:11/13/2024 09:17:35 PM Interpretation: Performing Lab:NL1, [facility] [id number] [place], [place] [address] Shayan Cannon M.D. Notes/Report: TSH 5.55 0.40-4.50 mIU/L T4, FREE 1.1 0.8-1.8 ng/dL CLIENT EDUCATION TRACKING Reviewed date:11/28/2024 09:26:19 AM Interpretation: Performing Lab:NL1, [facility] [id number] [place], [place] [phone] Shayan Cannon M.D. Notes/Report: FASTING: NO CLIENT EDUCATION TRACKING The Requisition we received did not include a [facility] account number. To prevent delays in testing and processing of your orders please provide the following information with every order submitted: [facility] account number and account name Client address Client phone and fax number NPI number of ordering physician along with the physician name. URINE CYTOLOGY Reviewed date:11/28/2024 09:26:19 AM Interpretation: Performing Lab:NL1, [facility] [id number] [place], [place] [phone] Shayan Cannon M.D. Notes/Report: SCREENER RMM, CT(ASCP) CT screening location: [address] [address] PATHOLOGIST Néstor Diaz M.D., Board Certified in Anatomic Pathology, Clinical Pathology and Cytopathology (electronic signature) A SOURCE Urine A PROCEDURE Cytology A GROSS DESCRIPTION The name on the container is in agreement with the requisition. 50 ml of clear, pale yellow fluid, received in Cytolyt fixative and processed by the ThinPrep method. (DC)11/16/2024 Gross exam(s) performed at: [facility] [address] [place] [phone] Auto Bumper Straightener: SHAYAN CANNON MD A DIAGNOSIS NEGATIVE FOR HIGH-GRADE UROTHELIAL CARCINOMA. - BENIGN UROTHELIAL AND SQUAMOUS CELLS PRESENT. QUESTASSURED 25-OH VIT D, (D 2,D3), LC/MS/MS Reviewed date:11/13/2024 09:17:35 PM Interpretation: Performing Lab:NL, [facility] [address] Shayan Cannon M.D. Notes/Report: VITAMIN D,25-OH,TOTAL,IA 28 30-100 ng/mL Vitamin D Status 25-OH Vitamin D: Deficiency: <20 ng/mL Insufficiency: 20 - 29 ng/mL Optimal: > or = 30 ng/mL For 25-OH Vitamin D testing on patients on D2-supplementation and patients for whom quantitation of D2 and D3 fractions is required, the QuestAssureD(TM) 25-OH VIT D, (D2,D3), LC/MS/MS is recommended: order code 80424 (patients >2yrs). See Note 1 Note 1 For additional information, please refer to http://education.Siminars.Engagor/faq/HWC885 (This link is being provided for informational/ educational purposes only.) VITAMIN B12 Reviewed date:11/13/2024 09:17:35 PM Interpretation: Performing Lab:[facility]A [facility] [address] Shayan Cannon M.D. Notes/Report: VITAMIN B12 895 647-5772 pg/mL HEMOGLOBIN A1c Reviewed date:11/13/2024 09:17:35 PM Interpretation: Performing Lab:ANNABELLA1 [facility] [address] Shayan Cannon M.D. Notes/Report: HEMOGLOBIN A1c [...] diagnosis of diabetes in children. According to [place] Diabetes Association (ADA) guidelines, hemoglobin A1c <7.0% represents optimal control in non- diabetic patients. Different metrics may apply to specific patient populations. Standards of Medical Care in Diabetes(ADA). C-REACTIVE PROTEIN Reviewed date:11/13/2024 09:17:35 PM Interpretation: Performing Lab:NL1, [facility] [address] Shayan Cannon M.D. Notes/Report: C-REACTIVE PROTEIN 9.7 <8.0 mg/L C-REACTIVE PROTEIN Reviewed date:12/28/2024 08:04:32 AM Interpretation: Performing Lab:NL1, [facility] [address] Shayan Cannon M.D. Notes/Report: FASTING:YES SPECIALIZED COLLECTION. PATIENT REFERRED TO ALTERNATE SITE. FASTING: YES C-REACTIVE PROTEIN <3.0 <8.0 mg/L URINALYSIS, COMPLETE W/REFLE X TO CULTURE Reviewed date:12/28/2024 08:04:32 AM Interpretation: Performing Lab:NL1, [facility] [address] Shayan Cannon M.D. Notes/Report: FASTING:YES SPECIALIZED [...] REFLEXIVE URINE CULTURE NO C ULTURE INDICATED URINALYSIS, COMPLETE W/REFLE X TO CULTURE Reviewed date:11/28/2024 09:26:19 AM Interpretation: Performing Lab:ANNABELLA [facility] [place] [phone] Shayan Cannon M.D. Notes/Report: FASTING: NO COLOR [...] REFLEXIVE URINE CULTURE NO C ULTURE INDICATED URINALYSIS, COMPLETE W/REFLE X TO CULTURE Reviewed date:11/13/2024 09:17:35 PM Interpretation: Performing Lab:KIRK [facility] [address] Shayan Cannon M.D. Notes/Report: COLOR YELLOW [...] DIFF/PLT) Reviewed date:11/13/2024 09:17:35 PM Interpretation: Performing Lab:[facility]LLA [facility] [address] Shayan Cannon M.D. Notes/Report: WHITE BLOOD [...] MPV 10.0 7.5-12.5 fL ABSOLUTE NEUTROPHILS 2865 1113-8021 cells/uL ABSOLUTE LYMPHOCYTES 7877 129-1902 cells/uL ABSOLUTE MONOCYTES 458 200-950 cells/uL ABSOLUTE EOSINOPHILS 276 15-500 cells/uL ABSOLUTE BASOPHILS 31 0-200 cells/uL NEUTROPHILS 55.1 LYMPHOCYTES 30.2 MONOCYTES 8.8 EOSINOPHILS 5.3 BASOPHILS 0.6 COMPREHENSIVE METABOLIC PANE L Reviewed date:12/28/2024 08:04:32 AM Interpretation: Performing Lab:NL1, [facility] [id number] [place], [place] [phone] Shayan Cannon M.D. Notes/Report: FASTING:YES SPECIALIZED COLLECTION. [...] 24 10-40 U/L ALT 24 9-46 U/L COMPREHENSIVE METABOLIC PANE L Reviewed date:11/13/2024 09:17:35 PM Interpretation: Performing Lab:NL1 [facility] [address] Shayan Cannon M.D. Notes/Report: GLUCOSE 96 65-99 [...] LDL Reviewed date:11/13/2024 09:17:35 PM Interpretation: Performing Lab:ANNABELLA1 [facility] [address] Shayan Cannon M.D. Notes/Report: CHOLESTEROL, TOTAL [...] LDL-C. Pradip SS et al. BOBBI. 2013;310(19): 4363-3253 (http://education.IForem/faq/ZIN018) CHOL/HDLC RATIO 4.4 <5.0 (calc) NON HDL CHOLESTEROL 102 <130 mg/dL (calc) For patients with diabetes plus 1 major ASCVD risk factor, treating to a non-HDL-C goal of <100 mg/dL (LDL-C of <70 mg/dL) is considered a therapeutic option. IRON, TIBC AND FERRITIN PANE L Reviewed date:12/28/2024 08:04:32 AM Interpretation: Performing Lab:ANNABELLA1, [facility] [address] Shayan Cannon M.D. Notes/Report: FASTING:YES SPECIALIZED COLLECTION. PATIENT REFERRED TO ALTERNATE SITE. FASTING: YES IRON, TOTAL 93 50-180 mcg/dL IRON BINDING CAPACITY 235 250-425 mcg/dL (juan jose c) % SATURATION 40 20-48 % (calc) FERRITIN 149 38-380 ng/mL IRON, TIBC AND FERRITIN PANE L Reviewed date:11/13/2024 09:17:35 PM Interpretation: Performing Lab:NLMary, [facility] [address] Shayan Cannon M.D. Notes/Report: IRON, TOTAL 55 50-180 mcg/dL IRON BINDING CAPACITY 244 250-425 mcg/dL (juan jose c) % SATURATION 23 20-48 % (calc) FERRITIN 109 38-380 ng/mL URINE CYTOLOGY Reviewed date:12/28/2024 08:04:32 AM Interpretation: Performing Lab:[facility] [address] Shayan Cannon M.D. Notes/Report: SCREENER KF, CT(ASCP) CT screening location: [place] [address] PATHOLOGIST Marion Farrell M.D., Board Certified in Anatomic and Clinical Pathology (electronic signature) A SOURCE Urine A PROCEDURE Cytology A GROSS DESCRIPTION The name on the container is in agreement with the requisition. 50 ml of clear, dark yellow fluid, received in Cytolyt fixative and processed by the ThinPrep method. (DC)12/23/2024 Gross exam(s) performed at: [facility] [address] [place] [phone] Auto Bumper Straightener: SHAYAN CANNON MD A DIAGNOSIS NEGATIVE FOR HIGH-GRADE UROTHELIAL CARCINOMA. - BENIGN UROTHELIAL AND SQUAMOUS CELLS PRESENT. Red blood cells present. Acute inflammation present. TSH W/REFLEX TO FT4 Reviewed date:12/28/2024 08:04:32 AM Interpretation: Performing Lab:NL1, [facility] [place], [place] [phone] Shayan Cannon M.D. Notes/Report: FASTING:YES SPECIALIZED COLLECTION. PATIENT REFERRED TO ALTERNATE SITE. FASTING: YES TSH W/REFLEX TO FT4 3.20 0.40-4.50 mIU/L CBC (INCLUDES DIFF/PLT) Reviewed date:12/28/2024 08:04:32 AM Interpretation: Performing Lab:NL1, [facility] [place], [place] [phone] Shayan Cannon M.D. Notes/Report: FASTING:YES SPECIALIZED COLLECTION. [...] MPV 9.8 7.5-12.5 fL ABSOLUTE NEUTROPHILS 2672 3930-5579 cells/uL ABSOLUTE LYMPHOCYTES 5998 204-8503 cells/uL ABSOLUTE MONOCYTES 459 200-950 cells/uL ABSOLUTE [...] Duration) Notes Start Date End Date Status Oseltamivir Phosphate 75 MG TAKE 1 CAPSU [...] Problem Status W/U Status Risk Notes Problem 23443179 Vitamin D deficiency (E55.9) Active confirmed Problem Mood disorder (47848237) Mood disorder (F39) Active confirmed Problem 20733805 Kidney stones (N20.0) Active confirmed Problem 788116692 Fatty liver (K76.0) Active confirmed Problem 717050434 Acquired hypothyroidism (E03.9) Active confirmed Problem 864879496 Mild intermitten t asthma without complication (J45.20) Active confirmed Problem 652681972180463 CRP elevated (R79.82) Active confirmed Problem 44298098 Hypertension, unspecified type (I10) Active confirmed Problem 19661786 Other migraine without status migrainosus, not intractable [...] Encounters Encounter Location Date Provider Diagnosis Diana Brarett Md [address] [place], [place] [phone] 08/10/2024 Nena Ortiz Hypertension, unspecified type I10 Diana Barrett Md [address] [place], [place] [address] 09/17/2024 Nena Ortiz Encounter for genera l adult medical examination with abnormal findings Z00.01 ; Hypertension, unspecified type I10 ; Left foot pain M79.672 and Other migraine without status migrainosus, not intractable G43.809 Diana Barrett Md [address] [place] [phone] 10/15/2024 Nena Ortiz Left foot pain M79.6 72 and Left lateral ankle pain M25.572 Diana Barrett Md [address] [place] [phone] 11/18/2024 Nena Ortiz Flank pain R10.9 ; Fatty liver K76.0 and Frequent urination R35.0 Diana Barrett Md [address] [place] [phone] 12/20/2024 Nena Ortiz Kidney stones N20.0 ; CRP elevated R79.82 and Acquired hypothyroidism E03.9 Diana Barrett Md [address] [address] 11/23/2024 Nena Barrett Md [address] [place] [address] 01/11/2025 Nena Dianapau Barrett Md [address] [place] [address] 08/10/2024 Nena Diana Diana Barrett Md [address] [place] [address] 08/10/2024 Nena Diana Diana Barrett Md [address] [place] [address] 11/16/2024 Nena Diana Diana Nena Boothe [address] [place] [address] 11/20/2024 Nena Cochrant Diana Barrett Md [address] [place] [address] 11/20/2024 Nena Diana Diana Barrett Md [address] [place] [address] 11/24/2024 Nena Diana Diana Barrett Md [address] [place] [address] 12/27/2024 Nena Diana Assessments Encounter Date Diagnosis (ICD [...] out of work due to pain 11/18/2024 Frequent urination (ICD-10 - R35.0) 09/17/2024 [...] controlled on current therapy, continue present regimen 12/20/2024 Acquired hypothyroidism (ICD-10 - E03.9) 09/17/2024 Other Weight loss recommended Plan Of Treatment Pending Test Test Name Order Date Ultrasound : Pelvis 11/18/2024 X ray : Abdomen, Kidneys, Ureters, and B ladder (KUB) 11/18/2024 Urine Cytology 11/18/2024 Urine Cytology 12/20/2024 Urine Cytology 09/17/2024 Urine Cytology 10/15/2024 X [...] Treat TSH+FREE T4 09/17/2024 TSH+FREE T4 10/15/2024 TSH+FREE T4 12/20/2024 Insurance Providers Payer Name Payer Address Payer Phone Subscriber Number Group Number Insured Name Patient Relationship to Insured Coverage Start Date Coverage End Date [employer] [place] [employer] [facility] [address] [place] [address] [phone] [id number] Thuan Nguyen Self - patient is the insured Medical (General) History Medical History History ICD Code Mild intermittent asthma without complic ation J45.20 Other migraine without status migrainosu s, not intractable G43.809 Mood disorder F39
--- OUTSIDE RECORDS SUMMARY | 2025-01-21 09:35 | XMS_ITS | Clinical Summary ---
Author Organization [facility] Address [address] [place] [address] Care Team Providers Care Exhibition Carver Name Role Phone Rosamaria Sam MD Primary Care Provider [phone] Immunizations Name Administration Dates Next Due Pfizer [...] age to complete this topic Care Teams Exhibition Carver Relationship Specialty Start Date End Date Rosamaria Sam MD [address] [place] [address] Dr [address] [facility] [place] [address] PCP - General 07/03/24
--- OUTSIDE RECORDS SUMMARY | 2025-01-21 09:35 | XMS_ITS | Data Portability ---
Author Organization ZOHREH Perez s, [facility] Address [address] [place] [address] Care Team Providers Care Solar Energy Systems Designer Name Role Phone [facility] Primary Care Provider Assessment No assessment recorded. Plan of Treatment Reminders Order Date Submit Date Provider Last Modified By Organization Details Last Modified Time Details Appointments None recorded. Lab culture, respiratory 2022 023 [place] [facility], [address] [place] [address], [place], [address], 3 16:06:43 rapid flu (A+B) 2022 023 [place] [address], [address] [place] [address], [address], 3 16:46:11 rapid SARS CoV 2 Ag, QL IA, respiratory specimen 2022 023 [place] [address] _[facility], [address] [place] [address], [address], 3 16:46:11 rapid strep group A, throat 2022 023 [place] [address], [address] [place] [address], [address], 3 16:46:10 Referral None recorded. Procedures None recorded. Surgeries None recorded. Imaging None recorded. Medication Orders penicillin V potassium 500 mg tablet 2022 023 [facility][id number], [address] [facility], [place], [address], 16:46:13 Patient TargetsNo targets recorded. Patient Instructions Encounter Date Encounter Id Patient Instructions Last Modified By Organization Details Last Modified Time 11/24/2022 [id number] sore throat: car e instructions [email or web address] Not available 11/24/2022 16:46:27 cough: care instructions [email or web address] Not available 11/24/2022 16:46:11 headache: care instructions [email or web address] Not available 11/24/2022 16:46:11 Reason for Referral None Reported. Results Created Date Observation Date Name Description Value Unit Range Abnormal Flag Note LastModifiedBy Organization Detail LastModifiedTime 11/24/1911/27/2022 UPPER RESPI RATOR Y CULTU RE upper respiratory culture FINAL REPORT Not Available [facility] ([facility]) [address] [facility], [place], [address], 11/27/2022 10:06:50 11/24/19 23 11/27/2022 UPPER RESPI RATOR Y CULTU RE result 1 COMMEN T Routi ne respi rator y annamaria Not Available [facility] ([facility]) [address] [facility], [place], [address], 11/27/2022 10:06:50 11/24/19 23 11/25/2022 PLEAS E NOTE please note Commen t The date and/o r time of colle ction was not indic ated on the requi sitio n as requi red by state and andres al law. The date of recei pt of the speci men was used as the colle ction date if not suppl ied. Not Available [facility] ([facility]) [address] [facility], [place], [address], 11/26/2022 16:06:44 11/24/19 23 11/24/2022 rapid SARS CoV 2 Ag, QL IA, respi rator y speci men Unknown Analyte Normal =Negat vaughn Not Available [address] [place] [address], [place], [address], 11/24/2022 16:14:55 11/24/19 23 11/24/2022 rapid SARS CoV 2 Ag, QL IA, respi rator y speci men Unknown Analyte negati ve Not Available [address] [place] [address], [place], [address], 11/24/2022 16:14:55 11/24/19 23 11/24/2022 rapid flu (A+B) Unknown Analyte Normal = Negati ve Not Available [address] [place] [address], [place], [address], 11/24/2022 16:14:48 11/24/19 23 11/24/2022 rapid flu (A+B) Unknown Analyte negati ve Not Available [address] [place] [address], [place], [address], 11/24/2022 16:14:48 11/24/19 23 11/24/2022 rapid flu (A+B) Unknown Analyte Normal = Negati ve Not Available [address] [place] [address], [place], [address], 11/24/2022 16:14:48 11/24/19 23 11/24/2022 rapid flu (A+B) Unknown Analyte negati ve Not Available [address] [place] [address], [place], [address], 11/24/2022 16:14:48 11/24/19 23 11/24/2022 rapid strep group A, throa t Unknown Analyte Normal = Negati ve Not Available [address] [place] [address], [place], [address], 11/24/2022 16:15:00 11/24/19 23 11/24/2022 rapid strep group A, throa t Unknown Analyte negati ve Not Available [facility] [address] [place] [address], [place], [address], 11/24/2022 16:15:00 Result Notes None recorded. Problems Name Problem SNOMED Code Status Onset Date Resolution Date Notes Provider Name and Address Organization Details Recorded Time Gastroesophage al reflux disease 354695078 Active 2022 KENNEY montoya PA - [facility] 3 16:12:05 Migraine 34186287 Active 2022 KENNEY montoya PA - [facility] 3 16:12:17 Chronic back pain 327618321 Active 2022 K[facility]NEY montoya [facility] - [facility] [...] Updated DateTime 3 180.34 cm 37.1 kg/m2 617594. 57 g 97.2 [degF] 18 /min 78 /min 98 % 98 % 142 mm[Hg] 79 mm[Hg] KENNEY ANGULO [facility] 16:14:38 Social History Question Answer Notes LastModified by HeadMixizat ion Details LastModified Time Tobacco Smoking Status Never Smoker KENNEY montoya PA [employer] [facility] [facility] 11/24/2022 16:12:54 What Is Your Level [...] SNOMED-CT Code Diagnosis ICD10 Code Diagnosis Note [id number] [address] [address] [address] 05/01/2022 17:21:49 05/01/2022 17:50:[address] [id number] [address] [address] 05/03/2020 09:55:42 05/03/2020 11:30:41 [id number] ZOHREH MONTIEL [facility] [address] [place] [address] 11/24/2022 15:59:16 11/24/2022 16:57:03 Acute upper respiratory infection 76673987 J06.9 Sore throat 158613324 J0 2.9 Known strep exposure. Rapid strep [...] 11/24/2022 [facility] ([facility]) Thuan Nguyen [id number] Thuan Nguyen Notes Date Note Type Note [...] paediatricians office as well. BLAYNE Wilcox, ZOHREH [facility], [address], [place] - [facility] 11/24/2022 16:48:47
--- OUTSIDE RECORDS SUMMARY | 2025-01-21 09:35 | XMS_ITS ---
Author Name [facility] [place] [facility] [place] [facility] [facility] [place] Address [address] [place] [address] Support Name Relationship Address Phone LEIGHTON ALLEN Next of [place] [address] [address] LEIGHTON ALLEN Emergency Contact [address] [place] [address] Care Team Providers Care Carbonation Equipment Operator Name Role Phone CORINNA SEVILLA Primary Care [...] [facility] DEPT OF [facility] Aug 17, 2020 [id number] [phone] ALLEN,CAR LOS PATIENT [place] ([place]UE CARD) PREFERRED PROVIDER ORGANIZAT ION (PPO) ST OF [facility] DEPT OF [facility] Aug 17, 2020 [id number] ALLEN,CAR LOS PATIENT [facility]EMARK PRESCRIPT ION [facility] Aug 17, 2020 [id number] [phone] ALLEN,CAR LOS PATIENT CAREMARK PRESCRIPT ION [facility] Aug 17, 2020 [id number] [phone] ALLEN,CAR LOS PATIENT Selected Encounter This section includes the information on record at [place] for the Encounter. Date/Time Encounter Type Encounter Description Reason Pro vider Source Jan 11, 2025 02:30 PM Outpatient Encounter SLEEP MEDICINE IHE Encounter Template Text not used by [place] Plan of Treatment: Future Appointments (+ 6 months) and Future Tests (+/- 45 days) The Plan of Treatment section includes future care activities for the patient from all [place] [facility] This section includes future appointments and future orders which are active, pending or scheduled. Future Appointments This section includes appointments that were scheduled to occur 6 months from the date of the Encounter, up to a maximum of 20 appointments. The data comes from all [place] treatment facilities. Appointment Date/Time Appointment Type Appointme nt Facility Name Jan 13, 2025 08:30 AM AMBULATORY - MEDICINE [facility] Jan 20, 2025 08:30 AM AMBULATORY - PSYCHIATRY [facility] Mar 10, 2025 08:30 AM AMBULATORY - PSYCHIATRY [facility] April 12, 2025 09:30 AM AMBULATORY - MEDICINE [facility] Apr 26, 2025 03:00 PM [facility] Active, Pending, and Scheduled Orders This section includes a listing of several types of active, pending, and scheduled orders, including clinic medications orders, diagnostic test orders, procedure orders and consult orders; where the start date of the order is 45 days before the date of the Encounter or 45 days after the date of theEncounter. The data comes from all [place] treatment [facility]. Test Date/Time Test Type Test Details Facility Name Dec 02, 2024 09:37 AM Consult Order [facility]- PSYCHOTHERAPY Cons Stereo Compiler's Choice [facility] [place] [facility] Social History: Smoking Status (Most current) and [...] 21, 2020 02:14 PM [facility]ACCO [facility] Encounter Notes: All associated encounter notes This section contains the clinical notes associated to the Encounter. Date/Time Encounter Note(s) Provider Source Jan 11, 2025 02:15 PM SLEEP MEDICINE NOT E: LOCAL TITLE: SLEEP TEST SFT DATA UPLOAD STANDARD TITLE: SLEEP MEDICINE NOTE DATE OF NOTE: JAN 11, 2025@14:15 ENTRY DATE: JAN 11, 2025@14:15:26 AUTHOR: CALEB MCPHERSON EXP COSIGNER: URGENCY: STATUS: COMPLETED Home sleep study recorder received, downloaded. Data quality is UNACCEPTABLE. Home Sleep Apnea Test (HSAT) performed on Dec Post home sleep questionnaires were RETURNED. Patient had disease specific education at this encounter. FAILED STUDY, NO DATA. DEVICE WAS NEVER TURNED ON. PATIENT WILLING TO RESCHEDULE. BUCKLE STRAP PUNCHER WILL ENTER NEW CONSULT. /mercedes/ KHARI MCMANUS HEDIS ANALYST Signed: 01/11/2025 14:16 Receipt Acknowledged By: * AWAITING SIGNATURE * CORINNA SEVILLA FREDERIC HAMMOND
--- OUTSIDE RECORDS SUMMARY | 2025-01-21 09:35 | XMS_ITS | Encounter Summary ---
Author Organization [facility] Address [address] [place] [address] Care Team Providers Care Pier Master Assistant Name Role Phone Unavailable Primary Care Provider Unavailabl e Reason for Referral * Urology (Routine) - Pending Review Specialty Diagnoses / Procedures Referred By Contac t Referred To Contact Urology Diagnoses Flank pain Urinary crystals Nena Ortiz MD [address] [place] [address] Ephraim Espinal MD [address] [place] [address] Referral ID Status Reason Start Date Expiration Date Visits Requested Visits Authorized [id number] Pending Review Consult 12/24/2024 12/25/2025 1 1 Encounter Details Date Type Department Care Team (Latest Contact Info) Description 12/24/2024 Transcribe Orders [facility] Urologic Surgery [address] [phone] Nena Ortiz MD [address] [place] [address] Flank pain (Primary Dx); Urinary crystals Social [...]
--- OUTSIDE RECORDS SUMMARY | 2025-01-21 09:35 | XMS_ITS ---
Author Name [facility] Organization [place] Address [address] [place] [address] Support Name Relationship Address Phone LEIGHTON ALLEN Next of Kin [address] [place] [address] LEIGHTON ALLEN Emergency Contact [address] [place] [address] Care Team Providers Care Therapy Site Coordinator Name Role Phone CORINNA SEVILLA Primary Care [...] CT DEPT OF COR Aug 17, 2020 [id number] ALLEN,CAR LOS PATIENT BCBS [place] (BLUE CARD) PREFERRED PROVIDER ORGANIZAT ION (PPO) ST OF [facility] DEPT OF COR Aug 17, 2020 [id number] ALLEN,CAR LOS PATIENT CAREMARK PRESCRIPT ION [facility] Aug 17, 2020 [id number] ALLEN,CAR LOS PATIENT CAREMARK PRESCRIPT ION [facility] Aug 17, 2020 [id number] [phone] ALLEN,CAR LOS PATIENT Selected Encounter This section includes the information on record at [place] for the Encounter. Date/Time Encounter Type Encounter Description Reason Provider Source Dec 30, 2024 11:00 AM RESIN TWO SURFACES-ANTERIO R DENTAL ICD-10-CM K03.0 Excessive attrition of teeth KAYCE KEYES IHE Encounter Template Text not used by [place] Assessments - Encounter Diagnoses This section includes the primary and secondary diagnoses documented for the Encounter. Date/Time Primary/Secondary Diagnosis Diagnosis Name Provider Source Jan 04, 2025 09:28 AM PRIMARY Excessive attrition of teeth [facility] Plan of Treatment: Future Appointments (+ 6 months) and Future Tests (+/- 45 days) The Plan of Treatment section includes future care activities for the patient from all [place] [facility]. This section includes future appointments [...] 13, 2025 08:30 AM AMBULATORY - MEDICINE [facility] Jan 20, 2025 08:30 AM AMBULATORY - PSYCHIATRY [facility] Mar 10, 2025 08:30 AM AMBULATORY - PSYCHIATRY [facility] April 12, 2025 09:30 AM AMBULATORY - MEDICINE [facility] Apr 26, 2025 03:00 PM AMBULATORY - NONE [facility] Active, Pending, and Scheduled Orders This section includes a listing of several types of active, pending, and scheduled orders, including clinic medications orders, diagnostic test orders, procedure orders and consult orders; where the start date of the order is 45 days before the date of the Encounter or 45 days after the date of theEncounter. The data comes from all [place] treatment [facility]. Test Date/Time Test Type Test Details Facility Name Dec 02, 2024 09:37 AM Consult Order [facility]- PSYCHOTHERAPY Cons Skiver Operator's Choice [facility] Social History: Smoking Status (Most [...] place. Date/Time Current Smoking Status Comment Mayra stacyceline Apr 21, 2020 02:14 PM VA-TOBACCO NEVER USED [place] [facility] Encounter Notes: All associated encounter notes This section contains the clinical notes associated to the Encounter. Date/Time Encounter Note(s) Provider Source Jan 04, 2025 09:27 AM DENTISTRY NOTE: LOCAL TITLE: DENTAL NOTE STANDARD TITLE: DENTISTRY NOTE DATE OF NOTE: JAN 04, 2025@09:27 ENTRY DATE: JAN 04, 2025@09:28:43 AUTHOR: EVY KEYES COSIGNER: URGENCY: STATUS: COMPLETED Patient Name: DENISSE ALLEN, : 1990, Age: 34 Visit: V: Dec 30, 2024@11:00 [facility] DENTAL DMD 4. Primary PCE Diagnosis: K03.0 (Excessive attrition of teeth). Dental Category: 15-OPC, Class IV. Treatment Status: Active. Planned Procedures: Non-DE Care OMFS (D0160) EXTENSV ORAL EVAL PROB FOCUS: . DX: (). (D0330) DENTAL PANORAMIC IMAGE: . DX: (). (D0367) CBCT CAPT/INTERPT MAX/JAYLENE: . DX: (). (D4266) GUIDED TISS REGEN RESORBLE: 19. DX: (). (D4266) GUIDED TISS REGEN RESORBLE: 30. DX: (). (D7953) BONE REPLACEMENT GRAFT: . DX: (). (D9222) GENERAL ANESTHESIA FIRST 15M: . DX: (). (D9223) GENERAL ANES EACH ADD'L 15M: . DX: (). (D6010) ENDOSTEAL IMPLANT BODY PLACE: 30. DX: (). (D6010) ENDOSTEAL IMPLANT BODY PLACE: 19. DX: (). Phase 1 (D2330) RESIN ONE SURFACE-ANTERIOR: 9(F). DX: (). (D2391) POST 1 SRFC RESINBASED CMPST: 29(O). DX: (). Phase 2 (D6057) CUSTOM ABUTMENT: 19. DX: (). (D6057) CUSTOM ABUTMENT: 30. DX: (). (D6059) ABUT SUPPORT CROWN PORC HNOB: 19. DX: (). (D6059) ABUT SUPPORT CROWN PORC HNOB: 30. DX: (). Completed Care: (D2331) RESIN TWO SURFACES-ANTERIOR. Tooth: 8. Surface(s): IF. DX: K03.0 Excessive Attrition of Teeth Patient presents for restorative treatment. Reviewed plan and all questions answered; pt consents to treatment. no anesthesia required stain removed tooth #8FI has defect from prior episcopal that failed etch, espinal composite shade A2 occlusion adjusted and polished espinal applied #9F for dentin sensitivity will need to address 12occl and 29occl at future visit for defective margins with stain - - - - - - - - - - - - - - - - - - - - - - - - - - - - - - /mercedes/ ISABELLE CERON Dicer Operator, Chief Dental Service Signed: 01/04/2025 09:28 ISABELLE KEYES [facility]
--- OUTSIDE RECORDS SUMMARY | 2025-01-21 09:36 | XMS_ITS | Encounter Summary ---
Author Organization [facility] Address [address] [place] [address] Care Team Providers Care Switchboard Receptionist Name Role Phone Unavailable Primary Care Provider Unavailabl e Encounter Details Date Type Department Care Team (Late st Contact Info) Description 12/24/2024 Orders Only [facility] Urologic Surgery [place] [address] [place] [address] Nena Ortiz MD [address] [place] [address] Social History Tobacco Use Types Packs/Day Years [...]
--- OUTSIDE RECORDS SUMMARY | 2025-01-21 09:36 | XMS_ITS | Encounter Summary ---
Author Organization [facility] Address [address] [place] [address] Care Team Providers Care Integration Assistant Name Role Phone Unavailable Primary Care Provider Unavailabl e Encounter Details Date Type Department Care Team (Late st Contact Info) Description 09/22/2020 Lab Requisition [facility] Testing [address] [phone] Michele Hwang PA-C [address] [place] [address] Encounter for laboratory testing for COVID-19 virus [...] Procedure Name Priority Date/Time Associated Diagnosis Comments (REPORT) SARS COV-2 RNA (COVID-19), QUAL Routine 09/22/2020 3:25 PM EST Encounter for laboratory testing for COVID-19 virus [ICD-10-CM] documented in this encounter Results * SARS CoV-2 RNA (COVID-19), Qual (09/22/2020 3:25 PM EST) SARS CoV 2 RNA, Qual NOT DETECTED NOT DETECTED 09/24/2020 7:00 PM EST [facility] Comment: A Not [...] providers and patients using the following websites: https://www.TripFab.Videolla/home/Covid-19/HCP/QuestLDTP/ fact-sheet https://www.Hyperpia/home/Covid-19/Patients/QuestLDTP/ fact-sheet.html This test has been authorized by the FDA under an Emergency Use Authorization (EUA) for use by authorized laboratories. Due to the current public health emergency, [facility] is receiving a high volume of samples [...] about COVID-19 can be found at the [employer] website: www.inBOLD Business Solutions.Videolla/Covid19. Microbiology Nasopharyngeal swab / Unknown 09/22/2020 3:25 PM EST 09/22/2020 3:25 PM EST [facility] - 09/24/2020 7:00 PM EST Performing Organization Information: ?Site ID: [id number] ?Name: [employer] ?Address: [address] [place] [address],[facility] [address] ?Director: JAMIA CANNON MD Performed at [facility] License number [id number] Michele Hwang PA-C BODY FLUIDS AND S TOOLS ORDERABLES Performing Organization Address City/State/[facility] Co de Phone Number [facility] documented in this encounter Visit Diagnoses Diagnosis Encounter for laboratory testing for COVID-19 virus documented in this encounter
--- OUTSIDE RECORDS SUMMARY | 2025-01-21 09:36 | XMS_ITS | Encounter Summary ---
Author Organization [facility] Address [address] [place] [address] Care Team Providers Care Medical Director/Head Team Physician Name Role Phone Unavailable Primary Care Provider Unavailabl e Encounter Details Date Type Department Care Team (Late st Contact Info) Description 08/18/2020 Lab Requisition [facility] Testing [address] [phone] Michele Hwang PA-C [address] [place] [address] Encounter for laboratory testing for COVID-19 virus [...] (REPORT) SARS COV-2 RNA (COVID-19), QUAL Routine 08/18/2020 3:51 PM EDT Encounter for laboratory testing for COVID-19 virus [ICD-10-CM] documented in this encounter Results * SARS CoV-2 RNA (COVID-19), Qual (08/18/2020 3:51 PM EDT) SARS CoV 2 RNA, Qual NOT DETECTED NOT DETECTED 08/20/2020 12:00 AM EDT [facility] Comment: A Not Detected (negative) [...] providers and patients using the following websites: https://www.Telller.Telller/home/Covid-19/HCP/QuestLDTP/ fact-sheet https://www.Attune Systems/home/Covid-19/Patients/QuestLDTP/ fact-sheet.html This test has been authorized by the FDA under an Emergency Use Authorization (EUA) for use by authorized laboratories. Due to the current public health emergency, [employer] is receiving a high volume of samples [...] about COVID-19 can be found at the [employer] website: www.Avocado Entertainment.Telller/Covid19. Microbiology Nasopharyngeal swab / Unknown 08/18/2020 3:51 PM EDT 08/18/2020 3:51 PM EDT [facility] - 08/20/2020 12:00 AM EDT Performing Organization Information: ?Site ID: [id number] ?Name: [employer] ?Address: [address] [place] [address],[address] [place] [id number] ?Director: JAMIA CANNON MD Performed at [facility] License number [id number] Michele Hwang PA-C BODY FLUIDS AND S TOOLS ORDERABLES Performing Organization Address City/State/[facility] Co de Phone Number [facility] documented in this encounter Visit Diagnoses Diagnosis Encounter for laboratory testing for COVID-19 virus documented in this encounter
--- OUTSIDE RECORDS SUMMARY | 2025-01-21 09:36 | XMS_ITS | Clinical Summary ---
Author Organization [facility] Address [address] [place] [address] Care Team Providers Care Beef Pluck Trimmer Name Role Phone Unavailable Primary Care Provider Unavailabl e Encounters Date Type Department Care Team Description 12/24/2024 Orders Only [facility] Urologic Surgery [address] [place] [phone] Nena Ortiz MD 12/24/2024 Transcribe Orders [facility] Urologic Surgery [address] [phone] Nena Ortiz MD Flank pain [...]
--- OUTSIDE RECORDS SUMMARY | 2025-01-21 09:36 | XMS_ITS | Encounter Summary ---
Author Organization [facility] Address [address] [place] [address] Care Team Providers Care Delivery Engineer Name Role Phone Unavailable Primary Care Provider Unavailabl e Encounter Details Date Type Department Care Team (Late st Contact Info) Description 07/28/2020 Lab Requisition [facility] Testing [address] [phone] Michele Hwang PA-C [address] [place] [address] Encounter for laboratory testing for COVID-19 virus [...] (REPORT) SARS COV-2 RNA (COVID-19), QUAL Routine 07/28/2020 3:29 PM EDT Encounter for laboratory testing for COVID-19 virus [ICD-10-CM] documented in this encounter Results * SARS CoV-2 RNA (COVID-19), Qual (07/28/2020 3:29 PM EDT) SARS CoV 2 RNA, Qual NOT DETECTED NOT DETECTED 08/01/2020 6:00 PM EDT [facility] Comment: A Not Detected (negative) test [...] providers and patients using the following websites: https://www.hopscout.FlatClub/home/Covid-19/HCP/QuestLDTP/ fact-sheet https://www.Oh My Green!/home/Covid-19/Patients/QuestLDTP/ fact-sheet.html This test has been authorized by the FDA under an Emergency Use Authorization (EUA) for use by authorized laboratories. Due to the current public health emergency, [employer] is receiving a high volume of samples [...] about COVID-19 can be found at the [employer] website: www.Kon[employer]a Technologies.FlatClub/Covid19. Microbiology Nasopharyngeal swab / Unknown 07/28/2020 3:29 PM EDT 07/28/2020 3:29 PM EDT Narrative [facility] - 08/01/2020 6:00 PM EDT Performing Organization Information: ?Site ID: [id number] ?Name: [employer] ?Address: [address] [place] [address],[address] [place] [phone] ?Director: JAMIA CANNON MD Performed at [facility] License number [id number] Michele Hwang PA-C BODY FLUIDS AND S TOOLS ORDERABLES Performing Organization Address City/State/[facility] Co de Phone Number [facility] documented in this encounter Visit Diagnoses Diagnosis Encounter for laboratory testing for COVID-19 virus documented in this encounter
--- OUTSIDE RECORDS SUMMARY | 2025-01-21 09:36 | XMS_ITS | Encounter Summary ---
Author Organization [facility] Address [address] [place] [address] Care Team Providers Care Gre Tutor Name Role Phone Unavailable Primary Care Provider Unavailabl e Encounter Details Date Type Department Care Team (Late st Contact Info) Description 06/16/2020 Lab Requisition [facility] Testing [address] [phone] Michele Hwang PA-C [address] [place] [address] Encounter for laboratory testing for COVID-19 virus [...] (REPORT) SARS COV-2 RNA (COVID-19), QUAL Routine 06/16/2020 1:24 PM EDT Encounter for laboratory testing for COVID-19 virus [ICD-10-CM] documented in this encounter Results * SARS CoV-2 RNA (COVID-19), Qual (06/16/2020 1:24 PM EDT) SARS CoV 2 RNA, Qual NOT DETECTED NOT DETECTED 06/17/2020 3:00 PM EDT [facility] Comment: A Not Detected (negative) test [...] providers and patients using the following websites: https://www.Oculeve.ICONIC/home/Covid-19/HCP/QuestLDTP/ fact-sheet https://www.Beanup/home/Covid19/Patients/QuestLDTP/ fact-sheet.html This test has been authorized by the FDA under an Emergency Use Authorization (EUA) for use by authorized laboratories. Due to the current public health emergency, [employer] is receiving a high volume of samples [...] about COVID-19 can be found at the [employer] website: www.Spor Chargers.ICONIC/Covid19. Microbiology Nasopharyngeal swab / Unknown 06/16/2020 1:24 PM EDT 06/16/2020 1:24 PM EDT [facility] - 06/17/2020 3:00 PM EDT Performing Organization Information: ?Site ID: [id number] ?Name: [employer] ?Address: [address] [place] [address],[place] [address] ?Director: JAMIA CANNON MD Performed at [facility] License number [id number] Michele Hwang PA-C BODY FLUIDS AND S TOOLS ORDERABLES Performing Organization Address City/State/[facility] Co de Phone Number [facility] documented in this encounter Visit Diagnoses Diagnosis Encounter for laboratory testing for COVID-19 virus documented in this encounter
--- OUTSIDE RECORDS SUMMARY | 2025-01-21 09:36 | XMS_ITS | Encounter Summary ---
Author Name [facility] [place] [facility] [place] Address [address] [place] [address] Support Name Relationship Address Phone TIFFANY LEIGHTON Next of Kin [address] [place] [address] LEIGHTON ALLEN Emergency Contact [address] [place] [address] Care Team Providers Care Psychiatric Nursing Aide Name Role Phone CORINNA SEVILLA Primary Care [...] CT DEPT OF COR Aug 17, 2020 [id number] ALLEN,CAR LOS PATIENT BCBS [place] (BLUE CARD) PREFERRED PROVIDER ORGANIZAT ION (PPO) ST OF [facility] DEPT OF COR Aug 17, 2020 [id number] ALLEN,CAR LOS PATIENT CAREMARK PRESCRIPT ION [facility] Aug 17, 2020 [id number] ALLEN,CAR LOS PATIENT CAREMARK PRESCRIPT ION [facility] Aug 17, 2020 [id number] ALLEN,CAR LOS PATIENT Selected Encounter This section includes the information on record at [place] for the Encounter. Date/Time Encounter Type Encounter Description Reason Provider Source Jan 13, 2025 08:30 AM SLEEP STUDY UNATT&RESP EFFT SLEEP MEDICINE ICD-10-CM R06.83 Snoring CALEB MCPHERSON Katie Encounter Template Text not used by [place] Assessments - Encounter Diagnoses This section includes the primary and secondary diagnoses documented for the Encounter. Date/Time Primary/Secondary Diagnosis Diagnosis Name Provider Source Jan 13, 2025 12:36 PM PRIMARY Snoring ANNA MCPHERSONDERIC [place] Plan of Treatment: Future Appointments (+ 6 months) and Future Tests (+/- 45 days) The Plan of Treatment section includes future care activities for the patient from all [place] [facility]. This section includes future appointments and future orders which are active, pending or scheduled. Future Appointments This section includes appointments that were scheduled to occur 6 months from the date of the Encounter, up to a maximum of 20 appointments. The data comes from all [facility]. Appointment Date/Time Appointment Type Appointme nt Facility Name Jan 20, 2025 08:30 AM AMBULATORY - PSYCHIATRY [facility] Mar 10, 2025 08:30 AM AMBULATORY - PSYCHIATRY [facility] April 12, 2025 09:30 AM AMBULATORY - MEDICINE [place] [facility] Apr 26, 2025 03:00 PM [facility]ULATORY - N[facility] Active, Pending, and Scheduled Orders This section includes a listing of several types of active, pending, and scheduled orders, including clinic medications orders, diagnostic test orders, procedure orders and consult orders; where the start date of the order is 45 days before the date of the Encounter or 45 days after the date of theEncounter. The data comes from all [facility]. Test Date/Time Test Type Test Details Facility Name Dec 02, 2024 09:37 AM Consult Order [facility]- PSYCHOTHERAPY Cons Carbon Paper Machine Operator's Choice [place] CNTR [place] [facility] Social History: Smoking Status (Most current) and Tobacco Use (All prior to encounter date) This section includes the most current, and the historical, smoking and tobacco- related health factors from the [place] facility where the Encounter took place. Current Smoking Status This section includes the most current smoking, or tobacco-related health factor, from the [place] facility where the Encounter took place. Date/Time Current Smoking Status Comment Facil itceline Nov 20, 2022 01:00 PM VA-TOBACCO NEVER USED [facility] Tobacco Use History This section includes a history of the smoking, or tobacco-related health factors, that were collected on or before the date of the Encounter. The data comes from the [place] facility where the Encounter took place. Date/Time Smoking Status/Tobacco Use Comment Megan mcconnell Nov 26, 2021 11:30 AM [place]-TOBACCO NEVER USED [place] Encounter Notes: All associated encounter notes This section contains the clinical notes associated to the Encounter. Date/Time Encounter Note(s) Provider Source Jan 13, 2025 08:30 AM SLEEP MEDICINE CON SULT: LOCAL TITLE: SLEEP STUDY/CONSULT REPORT STANDARD TITLE: SLEEP MEDICINE CONSULT DATE OF NOTE: JAN 13, 2025@08:30 ENTRY DATE: JAN 13, 2025@12:36:47 AUTHOR: CALEB MCPHERSON COSIGNER: URGENCY: STATUS: COMPLETED Service Location [facility] Device Information DeviceName: [id number] DeviceSerialNumber: [id number] Diagnosis: R06.83 - Snoring Education was provided about what sleep apnea [...] provided instructions and care plan. Other notes FAILED 1ST ATTEMPT, REASSESS WITH OAT/MAD Minutes professional time spent providing care.: 30 min Procedures 1 Individual (1) [place] /mercedes/ KHARI MCMANUS COMMERCIAL CREDIT HEAD Signed: 01/13/2025 12:36 CALEB MCPHERSON [place]
--- OUTSIDE RECORDS SUMMARY | 2025-01-21 09:36 | XMS_ITS | Encounter Summary ---
Author Name [facility] [place] [facility] [place] Organization [facility] [place] Address [address] [place] [address] Support Name Relationship Address Phone LEIGHTON ALLEN Next of Kin [address] [place] [address] LEIGHTON ALLEN Emergency Contact [address] [place] [address] Care Team Providers Care Instant Powder Supervisor Name Role Phone CORINNA SEVILLA Primary Care [...] CT DEPT OF COR Aug 17, 2020 [id number] [phone] ALLEN,CAR LOS PATIENT BCBS [place] (BLUE CARD) PREFERRED PROVIDER ORGANIZAT ION (PPO) ST OF [facility] DEPT OF COR Aug 17, 2020 [id number] ALLEN,CAR LOS PATIENT CAREMARK PRESCRIPT ION [facility] Aug 17, 2020 [id number] ALLEN,CAR LOS PATIENT CAREMARK PRESCRIPT ION [facility] Aug 17, 2020 [id number] [phone] ALLEN,CAR LOS PATIENT Selected Encounter This section includes the information on record at [place] for the Encounter. Date/Time Encounter Type Encounter Description Reason Provider Source Dec 23, 2024 09:01 AM SLEEP STUDY UNATT&RESP EFFT SLEEP STUDY ICD-10-CM G47.30 Sleep apnea, unspecified VIDA,CALEB IHE Encounter Template Text not used by [place] Assessments - Encounter Diagnoses This section includes the primary and secondary diagnoses documented for the Encounter. Date/Time Primary/Secondary Diagnosis Diagnosis Name Provider Source Jan 13, 2025 08:39 AM PRIMARY Sleep apnea, unspecified VIDA,CALEB [facility] ([id number]) Plan of Treatment: Future Appointments [...] 30, 2024 11:00 AM [facility] [place] [facility] Jan 13, 2025 08:30 AM AMBULATORY - MEDICINE [facility] Jan 20, 2025 08:30 AM AMBULATORY - PSYCHIATRY [facility] Mar 10, 2025 08:30 AM AMBULATORY - PSYCHIATRY [facility] April 12, 2025 09:30 AM AMBULATORY - MEDICINE [facility] [place]L [place] [facility] Apr 26, 2025 03:00 PM [facility]BULATORY - NONE [facility] Active, Pending, and Scheduled Orders This section includes a listing of several types of active, pending, and scheduled orders, including clinic medications orders, diagnostic test orders, procedure orders and consult orders; where the start date of the order is 45 days before the date of the Encounter or 45 days after the date of theEncounter. The data comes from all [place] treatment [facility]. Test Date/Time Test Type Test Details Facility Name Dec 02, 2024 09:37 AM Consult Order [facility]- PSYCHOTHERAPY Cons Reticle Printer's Choice [facility] Encounter Notes: All associated encounter notes This [...] 1 Individual (1) Education /mercedes/ KHARI MCMANUS SHAKE SPLITTER Signed: 12/23/2024 13:07 12/23/2024 ADDENDUM STATUS: COMPLETED Telehealth Informed Consent: Visit conducted by synchronous video telehealth. Patient verbal consent obtained. Location and emergency point of contact and/or number confirmed. [place] verbalized consent for this CVT visit: Yes /mercedes/ KHARI MCMANUS SHAKE SPLITTER Signed: 12/23/2024 13:09 CALEB MCPHERSON [facility] ([id number])
--- OUTSIDE RECORDS SUMMARY | 2025-01-21 09:36 | XMS_ITS | Encounter Summary ---
Author Organization [facility] Address [address] [place] [address] Care Team Providers Care Artillery Meteorological Man Name Role Phone Unavailable Primary Care Provider Unavailabl e Encounter Details Date Type Department Care Team (Late st Contact Info) Description 09/08/2020 Lab Requisition EM Lab DOC: Raudel Rodriguez [address] [place] [phone] Michele Hwang PA-C [address] [place] [id number] Encounter for laboratory testing for COVID-19 virus [...] (REPORT) SARS COV-2 RNA (COVID-19), QUAL Routine 09/08/2020 3:27 PM EDT Encounter for laboratory testing for COVID-19 virus [ICD-10-CM] documented in this encounter Results * SARS CoV-2 RNA (COVID-19), Qual (09/08/2020 3:27 PM EDT) Pathologist [facility] SARS CoV 2 RNA, Qual NOT DETECTED NOT DETECTED 09/10/2020 5:[address] [facility] Comment: A Not Detected [...] providers and patients using the following websites: https://www.SigFig.Buildingeye/home/Covid-19/HCP/QuestLDTP/ fact-sheet https://www.Kiva/home/Covid-19/Patients/QuestLDTP/ fact-sheet.html This test has been authorized by the FDA under an Emergency Use Authorization (EUA) for use by authorized laboratories. Due to the current public health emergency, [facility] is receiving a high volume of samples [...] about COVID-19 can be found at the [facility] website: www.MEDOVENT.Buildingeye/Covid19. Microbiology Nasopharyngeal swab / Unknown 09/08/2020 3:27 PM EDT 09/08/2020 3:27 PM EDT [facility] - 09/10/2020 5:00 AM EDT Performing Organization Information: ?Site ID: [id number] ?Name: [facility] ?Address: [address] [place] [address],[facility] [[email or web address] [place] [address] ?Director: JAMIA CANNON MD [facility]formed at [facility] License number [id number] Michele Hwang PA-C BODY FLUIDS AND S TOOLS ORDERABLES Performing Organization Address City/State/[facility] Co de Phone Number [facility] documented in this encounter Visit Diagnoses Diagnosis Encounter for laboratory testing for COVID-19 virus documented in this encounter
--- OUTSIDE RECORDS SUMMARY | 2025-01-21 09:36 | XMS_ITS ---
Author Organization [facility] Address [address] [address] Care Team Providers Care Timber Bucker Name Role Phone Nena Ortiz Primary Care Provider [phone] REASON FOR VISIT 3 week f/u Encounters Encounter Location Date Provider Diagnosis [facility] [address] [facility] [address] [place] [address] 01/11/2025 Nena Ortiz Plan Of Treatment No Information Progress Notes * Feliciano ALLENsDOB:1990 (34 yo M)Acc No.[id number]:01/11/2025 Progress Notes Patient:?Thuan ALLEN Provider:?Nena Ortiz MD :1990???Age:34 Y???Sex:Male Paxton e:01/11/2025 Address:[address] [facility] Subjective: * Chief Complaints: * ???1. 3 week f/u. * Medical History:? Objective: * Vitals:? Assessment: Plan: * Treatment: * * Electronic signature of Tk Ortiz MD on 01/21/2025 at 09:36 AM EST Sign off status: Pending * Provider:?Nena Ortiz MD Date:?12/19 Generated for Cassyi tamika/Barbra/eTransmitting on:?01/21/2025 09:36 AM EST
== END 2025-01-21 08:56 | disposition home or self-care (01) ==
LOC: HO.HMGCX 08:55
PROVIDERS: PCP Internal Medicine; Visit Provider Internal Medicine
DX: R79.89 Other specified abnormal findings of blood chemistry (principal)
CPT/HCPCS: 76705

== ENCOUNTER → 2025-01-21 08:57 | Outpatient (BNV) | payer BC, SELFPAY | PROVIDERS: PCP Internal Medicine; Visit Provider Radiology Vascular & Interventional Radiology | DX: R79.89 Other specified abnormal findings of blood chemistry (principal) | CPT/HCPCS: 76705 ==

== ENCOUNTER 2025-02-09 08:01 | Outpatient (AMB) | payer BC, SELFPAY ==
--- NOTE | 2025-02-09 08:02 | AM.OFFWIN_ITS ---
Intake Vital Signs 02/09/25 08:03 Weight 292 lb BP 120/78 Blood Pressure Location Rt brachial Pulse 80 Pulse Source Pulse Oximeter Temp 98.9 F Temp Source Oral Pulse Oximetry (%) 97 Oxygen Delivery Method Room Air Intake Visit Reasons: EP ? strep throat Intake Note: Patient here for strep throat. he states his and kids have it as well. Patient Tobacco Use Status: Never used Tobacco Allergies No Known Allergies Allergy (Verified 02/09/25 08:05) Do you need a note to return to daycare/school/sports/work: Yes HPI HPI Comments History of Present Illness Details Pt is a 34yo M who presents with step + strep yesterday He is symptomatic + chills, no fever 06/26 No cough OTC spray without relief Pain worse with swallowing PFSH Medical History (Updated 02/09/25 @ 08:24 by Nichelle Simms PA-C) LFT elevation Asthma Morbid obesity Ankle sprain Vasectomy evaluation Anxiety about health Laceration of left thumb Headache Chronic migraine without aura COVID-19 virus infection Viral infection Ear pain, right Otitis media, right Daytime sleepiness Pharyngitis Otitis media Upper respiratory tract infection SOB (shortness of breath) Left carotid bruit Chest pain Puncture wound of finger of left hand IBS (irritable bowel syndrome) Lumbar disc disease Plantar fasciitis, bilateral Sciatic leg pain Tinnitus PTSD (post-traumatic stress disorder) Generalized anxiety disorder Obesity (BMI 30-39.9) Surgical History H/O vasectomy Family History Mother No problems noted. Father No problems noted. Daughter No problems noted. Son No problems noted. Daughter No problems noted. Brother No problems noted. Sister No problems noted. Sister No problems noted. Other Lupus Mental health disorder Social History (Updated 12/22/24 @ 09:44 by Ciera Oglesby CMA) Housing: House Alcohol intake: current Alcohol intake frequency: a few times a week Comment: 3x a week 2 drinks Patient Tobacco Use Status: Never used Tobacco e-Cigarette/Vaping Use: Never Used Second Hand Smoke Exposure: No service: Yes Current occupational status: employed Cognitive needs: No Hearing needs: No Vision needs: Yes Review of Systems Const Reports chills and Denies fever(s) ENT Denies otalgia, Denies nasal congestion, Reports sore throat, Denies throat swelling and Denies tongue swelling Card Denies chest pain and Denies dyspnea Resp Denies cough and Denies dyspnea Aller/Immun Denies throat swelling and Denies tongue swelling Physical Exam Vital Signs: Last Vital Signs Temp 98.9 F 02/09/25 08:03 Pulse 80 02/09/25 08:03 BP 120/78 02/09/25 08:03 Pulse Ox 97 02/09/25 08:03 Oxygen Delivery Method Room Air 02/09/25 08:03 General: Non-toxic, NAD. Speaking full sentences. Skin: Warm dry throughout Eye: EOMI HENT: Airway patent. Uvula midline. + pharyngeal erythema with exudates. Minimal tonsillar edema. No STUDENT LIFE VICE PRESIDENT. Bilateral canals clear. TM non-erythematous, non-bulging. No TM perforation or hemotympanum noted. Lymph: + tonsillar lymphadenopathy bilaterally. Respiratory: CTA bilaterally. No wheezes, rales or rhonchi Cardiac: RRR. No murmur MSK: Full ROM extremities. Neurology: A/O. No aphasia or facial droop. Gait without abnormality Psych: Good mood and affect Assessment & Plan Assessment & Plan (1) Strep pharyngitis: Code(s): J02.0 - Streptococcal pharyngitis Plan: Patient seen and evaluated. + strep Penicillin Ibuprofen New toothbrush Increase fluids/rest Patient gave verbal understanding and had no additional questions or concerns at time of discharge All questions answered Orders: Orders AMB Rapid Strep Screen Today Z13.9 - Encounter for screening, unspecified Medications: New penicillin V potassium 500 mg PO BID 10 days 20 tabs 0RF ibuprofen 800 mg PO Q8H PRN 20 tabs 0RF pain Coding Level of Care Code Est Pt Level 3 (98944) Diagnoses Strep pharyngitis J02.0
[2025-02-09 08:03] VITALS: BP 120/78; PULSE 80; TEMP 37.2; O2SAT 97
--- OUTSIDE RECORDS SUMMARY | 2025-02-09 08:07 | XMS_ITS | Encounter Summary ---
Author Name [facility] [place] [facility] [place] [facility] [place] Address [address] [place] [address] Support Name Relationship Address Phone TIFFANY LEIGHTON Next of Kin [address] [place] [address] LEIGHTON ALLEN Emergency Contact [address] [place] [address] Care Team Providers Care Hyperbaric Welder Diver Name Role Phone CORINNA SEVILLA Primary Care [...] [facility] DEPT OF COR Aug 17, 2020 [id number] [id number] [phone] ALLEN,CAR LOS PATIENT BCBS YOUSIF (BLUE CARD) PREFERRED PROVIDER ORGANIZAT ION (PPO) ST OF [facility] DEPT OF COR Aug 17, 2020 [id number] ALLEN,CAR LOS PATIENT [facility]EM[facility] PRESCRIPT I[facility] Aug 17, 2020 [id number] ALLEN,CAR LOS PATIENT [facility] PRESCRIPT ION [facility] Aug 17, 2020 [id number] [phone] ALLEN,CAR LOS PATIENT Selected Encounter This section includes the information on record at [place] for the Encounter. Date/Time Encounter Type Encounter Description Reason Provider Source April 01, 2024 04:00 PM OFFICE O/P EST HI 40 MIN [facility] - IND ICD-10-CM F43.12 Post-traumatic stress disorder, chronic GABRIELANTHONY Queta Azalia Katie Encounter Template Text not used by [place] Assessments - Encounter Diagnoses This section includes [...] care activities for the patient from all [place] [facility]. This section includes future appointments and future orders which are active, pending or scheduled. Future Appointments This section includes appointments that were scheduled to occur 6 months from the date of the Encounter, up to a maximum of 20 appointments. The data comes from all [place] treatment facilities. Appointment Date/Time Appointment Type Appointme nt Facility Name Apr 26, 2024 09:30 AM AMBULATORY - NONE [place] [facility] [place] [facility] Jun 02, 2024 09:30 AM AMBULATORY - NONE [place] [facility] [place] [facility] Jul 13, 2024 10:00 AM AMBULATORY - NONE [place] [facility] [place] [facility] Jul 14, 2024 09:30 AM AMBULATORY - NONE [place] [facility] [place] [facility] Jul 27, 2024 10:30 AM AMBULATORY - NONE [place] [facility] [place] [facility] Aug 05, 2024 02:00 PM AMBULATORY - PSYCHIATRY [facility] Social History: Smoking Status (Most current) and Tobacco Use (All prior to encounter date) This section includes the most current, and the historical, smoking and tobacco- related health factors from the [place] facility where the Encounter took place. Current Smoking Status This section includes the most current smoking, or tobacco-related health factor, from the [place] facility where the Encounter took place. Date/Time Current Smoking Status Joe olivarez Nov 20, 2022 01:00 PM [place]-TOBACCO NEVER USED [place] Tobacco Use History This section includes a history of the smoking, or tobacco-related health factors, that were collected on or before the date of the Encounter. The data comes from the [place] facility where the Encounter took place. Date/Time Smoking Status/Tobacco Use Comment Megan mcconnell Nov 26, 2021 11:30 AM [place]-TOBACCO NEVER USED [place] Encounter Notes: All associated encounter notes This section contains the clinical notes associated to the Encounter. Date/Time Encounter Note(s) Provider Source April 01, 2024 04:12 PM TELEHEALTH NOTE: LOCAL TITLE: [place] VIDEO CONNECT PSYCHIATRIST NOTE STANDARD TITLE: TELEHEALTH NOTE DATE OF NOTE: APRIL 01, 2024@16:12 ENTRY DATE: APRIL 01, 2024@16:12:16 AUTHOR: MIGUELITO GABRIEL EXP COSIGNER: URGENCY: STATUS: COMPLETED [place] VIDEO CONNECT PSYCHIATRIST NOTE Has ADDENDA [place] Video Connect (VVC) Standard Documentation VVC Clinician Resources Only: E911 (Emergency Call Relay Center): [phone] [facility] Crisis Line - 988 then press #1. [facility] Suicide Coordinator [phone], Ext. [phone]; Back-up Ext. [phone] [place] Police, JODI, Darryl [phone] Introduction: Visit is being conducted by [place] [employer] Connect. [place] identified with 2 identifiers: [X] Full Name [X] Date of [ ] VA ID Card Emergency Plan: confirmed and/or provided the following information in case of emergency or technology failure. PATIENT PHONE - PHONE NUMBER [CELLULAR] - Is patient phone number correct, if not, enter below: [place]'s phone number: DENISSE ALLEN [address] [place] [address], [phone] [place]'s present location and address for appointment: home [place]'s emergency contact name and phone number: chart [place] reported that location is private and safe: Yes Informed Consent: [place] informed of the risks and benefits of Telehealth video care. has the right to refuse video services. If refuses video visit, a [id number] visit will be scheduled. 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 Chronic Post-Traumatic Stress Disorder ([facility] [id number]) 4. Major depressive disorder 5. Comanagement 6. [...] denied suicidal and violent ideation, but the [employer] Crisis Line information and number were reviewed w patient as a precaution over the phone. The patient also understands to call 911 or to go to ER in the event of an emergency. therapist in psych wellness grp -- Layne Webb, but the patient may try to change therapist to Bradley Rogers, using his own insurance. I offered him a therapist within the [place], but the patient declines at this point, [...] By: 04/02/2024 07:21 /mercedes/ Makenzie Mccarthy ADVANCED COLOR REPAIRER 04/02/2024 10:52 /es/ CALI GUSTAFSON ADVANCED COLOR REPAIRER 04/01/2024 ADDENDUM STATUS: COMPLETED Suicide Screen: C-SSRS Screening [place]-Suicide Severity Rating Scale (C-SSRS Screener) 1. Over [...]
--- OUTSIDE RECORDS SUMMARY | 2025-02-09 08:07 | XMS_ITS | Clinical Summary ---
Author Organization [facility] Address [address] [place] [address] Care Team Providers Care Arboriculturist Name Role Phone Rosamaria Sam MD Primary Care Provider [phone] Allergies No known active allergies Medications No [...] age to complete this topic Care Teams Arboriculturist Relationship Specialty Start Date End Date Flaco, Rosamaria Jerome MD [address] [place] [address] [address] [facility] [place] [address] PCP - General Internal Medicine 07/03/24
--- OUTSIDE RECORDS SUMMARY | 2025-02-09 08:07 | XMS_ITS | Encounter Summary ---
Author Name [facility] [place] Organization [facility] [place] [facility] [place] Address [address] [place] [address] Support Name Relationship Address Phone TIFFANY LEIGHTON Next of Kin [address] [place] [address] LEIGHTON ALLEN Emergency Contact [address] [place] [address] Care Team Providers Care Venue Coordinator Name Role Phone CORINNA SEVILLA Primary [...] CT DEPT OF COR Aug 17, 2020 [id number] 00H [id number] ALLEN,CAR LOS PATIENT BCBS YOUSIF (BLUE CARD) PREFERRED PROVIDER ORGANIZAT ION (PPO) ST OF [facility] DEPT OF COR Aug 17, 2020 [id number] [id number] [phone] ALLEN,CAR LOS PATIENT [facility] PRESCRIPT I[facility] Aug 17, 2020 [id number] ALLEN,CAR LOS PATIENT [place] PRESCRIPT ION [facility] Aug 17, 2020 [id number] [phone] ALLEN,CAR LOS PATIENT Selected Encounter This section includes the information on record at [place] for the Encounter. Date/Time Encounter Type Encounter Description Reason Provider Source Jan 20, 2025 08:30 AM OFFICE O/P EST MOD 30 MIN [facility] CLINIC - IND ICD-10-CM F43.12 Post-traumatic stress disorder, chronic HARVEYHEAVENLYPERRI Vieyra Katie Encounter Template Text not used by [place] Assessments - Encounter Diagnoses This section includes the primary and secondary diagnoses documented for the Encounter. Date/Time Primary/Secondary Diagnosis Diagnosis Name Provider Source Jan 20, 2025 12:06 PM PRIMARY Post-traumatic stress disorder, chronic MIGUELITO GABRIEL [place] Plan of Treatment: Future Appointments (+ 6 months) and Future Tests (+/- 45 days) The Plan of Treatment section includes future care activities for the patient from all [place] [facility]. This section includes future appointments and future orders which are active, pending or scheduled. Future Appointments This section includes appointments that were scheduled to occur 6 months from the date of the Encounter, up to a maximum of 20 appointments. The data comes from all [place] treatment facilities. Appointment Date/Time Appointment Type Appointme nt Facility Name Mar 10, 2025 08:30 AM AMBULATORY - [facility]ATRY [facility] April 12, 2025 09:30 AM [facility] Apr 26, 2025 03:00 [facility] Social History: Smoking Status (Most current) and Tobacco Use (All prior to encounter date) This section includes the most current, and the historical, smoking and tobacco- related health factors from the [place] facility where the Encounter took place. Current Smoking Status This section includes the most current smoking, or tobacco-related health factor, from the [place] facility where the Encounter took place. Date/Time Current Smoking Status Comment Mayra olivarez Nov 20, 2022 01:00 PM [place]-TOBACCO NEVER USED [place] Tobacco Use History This section includes a history of the smoking, or tobacco-related health factors, that were collected on or before the date of the Encounter. The data comes from the [place] facility where the Encounter took place. Date/Time Smoking Status/Tobacco Use Comment Megan mcconnell Nov 26, 2021 11:30 AM [place]-TOBACCO NEVER USED [place] Encounter Notes: All associated encounter notes This section contains the clinical notes associated to the Encounter. Date/Time Encounter Note(s) Provider Source Jan 20, 2025 08:34 AM TELEHEALTH NOTE: LOCAL TITLE: [place] VIDEO CONNECT PSYCHIATRIST NOTE STANDARD TITLE: TELEHEALTH NOTE DATE OF NOTE: JAN 20, 2025@08:34 ENTRY DATE: JAN 20, 2025@08:35:04 AUTHOR: MIGUELITO GABRIEL COSIGNER: URGENCY: STATUS: COMPLETED [place] Video Connect (VVC) Standard Documentation VVC Clinician Resources Only: E911 (Emergency Call Relay Center): [phone] [facility] Crisis Line - 988 then press #1. [place] Suicide Coordinator [phone], Ext. [phone]; Back-up Ext. [phone] [place] Police, IMTIAZSandra, Darryl [phone] Introduction: Visit is being conducted by [place] [facility]. [place] identified with 2 identifiers: [X] Full Name [X] Date of [ ] [place] ID Card Emergency Plan: confirmed and/or provided the following information in case of emergency or technology failure. PATIENT PHONE - PHONE NUMBER [CELLULAR] - Is patient phone number correct, if not, enter below: 's phone number: DENISSE ALLEN [address] [place] [address], [phone] 's present location and address for appointment: [facility] [place], [place] 's emergency contact name and phone number: chart reported that location is private and safe: Yes Informed Consent: [place] informed of the risks and benefits of Telehealth video care. [place] has the right to refuse video services. If refuses video visit, a [id number] visit will be scheduled. 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 Major depressive disorder 5. Comanagement 6. [...] denied suicidal and violent ideation, but the [facility] [employer] Crisis Line information and number were reviewed w patient as a precaution over the phone. The patient also understands to call 911 or to go to ER in the event of an emergency. Again, another discussion re psychotherapy (to help w coping w stressors) -- pt now has [facility] therapy consult pending for Giovani Garcia [address] [place] [address] Phone/ (call this number) pt will call to set up appt Also has-- Ariane for couples therapy-- again, pt feels this helps when can set up. I again reviewed evidenced based psychotherapies for ptsd w pt. I offered him a therapist within the [place], but the patient declines at this point, [...] 12:06 Receipt Acknowledged By: 01/20/2025 13:58 /mercedes/ CLAI GUSTAFSON ADVANCED SLIP OPERATOR MIGUELITO GABRIEL
--- OUTSIDE RECORDS SUMMARY | 2025-02-09 08:07 | XMS_ITS | Encounter Summary ---
Author Name [facility] [place] [facility] [place] Organization [facility] [place] Address [address] [place] [address] Support Name Relationship Address Phone LEIGHTON ALLEN Next of Kin [address] [place] [address] LEIGHTON ALLEN Emergency Contact [address] [place] [address] Care Team Providers Care Distribution Tech Name Role Phone CORINNA SEVILLA Primary Care [...] CT DEPT OF COR Aug 17, 2020 [id number] [phone] ALLEN,CAR LOS PATIENT BCBS [place] (BLUE CARD) PREFERRED PROVIDER ORGANIZAT ION (PPO) ST OF [facility] DEPT OF COR Aug 17, 2020 [id number] [phone] ALLEN,CAR LOS PATIENT [facility] PRESCRIPT [facility] Aug 17, 2020 [id number] ALLEN,CAR LOS PATIENT [place] PRESCRIPT ION [facility] Aug 17, 2020 [id number] [phone] ALLEN,CAR LOS PATIENT Selected Encounter This section includes the information on record at [place] for the Encounter. Date/Time Encounter Type Encounter Description Reason Pro vider Source March 29, 2024 03:00 PM Outpatient Encounter [facility] Encounter Template Text not used by [place] Plan of Treatment: Future Appointments (+ 6 months) and Future Tests (+/- 45 days) The Plan of Treatment section includes future care activities for the patient from all [place] [facility]. This section includes future appointments [...] 01, 2024 04:00 PM AMBULATORY - PSYCHIATRY [facility] Apr 26, 2024 09:30 AM AMBULATORY - NONE [place] [facility] [place] [facility] Jun 02, 2024 09:30 AM AMBULATORY - NONE [place] [facility] [place] [facility] Jul 13, 2024 10:00 AM AMBULATORY - NONE [place] [facility] [place] [facility] Jul 14, 2024 09:30 AM AMBULATORY - NONE [place] [facility] [place] [facility] Jul 27, 2024 10:30 AM AMBULATORY - NONE [place] [facility] [place] [facility] Aug 05, 2024 02:00 PM AMBULATORY - PSYCHIATRY [facility] Social History: Smoking Status (Most current) [...] Mayra olivarez Nov 20, 2022 01:00 PM [place]-TOBACCO NEVER USED [place] Tobacco Use History This section includes a history of the smoking, or tobacco-related health factors, that were collected on or before the date of the Encounter. The data comes from the [place] facility where the Encounter took place. Date/Time Smoking Status/Tobacco Use Comment Megan mcconnell Nov 26, 2021 11:30 AM [place]-TOBACCO NEVER USED [place] Encounter Notes: All associated encounter notes This [...] ADDENDA Patient Name: DENISSE ALLEN Patient SSN: [id number] Date and time of Appointment No show [...] STAFF PSYCHIATRIST Signed: 03/29/2024 18:21 MIGUELITO GABRIEL [place]
--- OUTSIDE RECORDS SUMMARY | 2025-02-09 08:07 | XMS_ITS | Data Portability ---
Author Organization [place] [facility] Shayan Sánchez [facility]ONE [place] Address [address] [place] [address] Care Team Providers Care Clerical Production Worker Name Role Phone CITLALI KENNEY Primary Care Provider CITLALI KENNEY Referring Provider [phone] SABA KWOK Release Engineer Assessment Encounter Date Assessment Date Assessment LastModified [...] physical examination, tests/diagnostic imaging, and treatment plan [email or web address] Not available 10/28/2024 09:40:50 12/23/2024 12/23/2024 I [...] ankle, 3 or more view 2023 024 [email or web address] [facility], [address], [place], [address], 10/28/2024 10:36:43 XR, foot, 2 view 2023 024 [email or web address] [facility], [address], [place], [address], 10/28/2024 10:36:43 MRI, foot, w/o contrast - Rule out edema in the fourth and fifth metatarsa ls, rule out occult fracture, work injury 4 months ago, failed conservat vaughn care 2023 024 CUCA Not available 12/06/2024 15:29:06 Medication Orders None recorded. Patient TargetsNo targets recorded. Patient Instructions Encounter Date Encounter Id Patient Instructions Last Modified By Organization Details Last Modified Time 10/28/2024 [id number] Weightbearing x-rays of the left foot and ankle were obtained on 10/28/2024 which is negative for acute fracture. No evidence of periosteal stress reaction. No widening of the Lisfranc complex. [email or web address] Not available 10/28/2024 09:41:08 12/23/2024 [id number] Weightbearing x-rays of the left foot and ankle were obtained on 10/28/2024 which is negative for acute fracture. No evidence of periosteal stress reaction. No widening of the Lisfranc complex. [email or web address] Not available 11/25/2024 08:29:38 01/20/2025 [id number] Weightbearing x-rays of the left foot and [...] Organization Details Recorded Time Strain of foot 00131458947 Active 025 Almita Thompson MD [address], [place], [address] , [place] [facility], 10:20:55 Problem Notes None recorded. Procedures Surgical [...] Updated DateTime 10/28/2024 180.34 cm 39.1 kg/m2 412556.86 g ADAMA STEINBERG PA-C [address], [place], [address], [place] [facility] 10/28/2024 09:28:58 Date Recorded Body height Body mass index (BMI) Body weight Provider Name and Address Organization Details Last Updated DateTime 12/23/2024 180.34 cm 39.1 kg/m2 195161.[address] [facility] 12/23/2024 09:50:01 Date Recorded Body height Body mass index (BMI) Body weight Provider Name and Address Organization Details Last Updated DateTime 01/20/2025 180.34 cm 39.1 kg/m2 146554.[address] [facility] 01/20/2025 09:10:53 Social History None recorded. Functional Status None recorded. Mental Status None recorded. Family History Nothing Reported. Medical History No medical history recorded. Past Encounters Encounter ID Performer Location Encounter Start Date Encounter Closed Date Diagnosis/Indication Diagnosis SNOMED-CT Code Diagnosis ICD10 Code Diagnosis Note [id number] Almita Thompson MD [facility] [place] [address] [address] 10/28/2024 09:05:04 10/28/2024 09:52:11 Ankle pain 449434415 M25.572 Pain in left foot 415343 3492 44508 M79.672 [id number] Almita Thompson MD JAMES [address] [address] 12/23/2024 09:48:32 12/23/2024 10:25:26 Strain of foot 6693594387 9 S96.912D [id number] MD BROOKLYN [place] [address] [address] 01/20/2025 08:59:53 01/20/2025 09:37:45 Strain of foot 0420922145 9 S96.912D Health Concerns Section Related Observation LastModified by Organization Detai ls LastModified Time None Recorded Concern Status LastModified by Organization Details LastModified Time None Recorded Advance Directives Directive None Recorded Payers Encounter Date Sequence Insurance Name Policy Number Policy Gloria Covered Member ID Gloria Member ID Guarantor Name 10/28/2024 Yovia [id number] Other Thuan Nguyen 12/23/2024 Yovia [id number] Francisca Nguyen 01/20/2025 Yovia [id number] Francisca Nguyen Notes Date Note [...] no medical history. 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 He drinks about 4 alcoholic drinks per week. ADAMA STEINBERG PA-C [address], [place], [address], [place] [facility] 10/28/2024 09:42:03 12/23/2024 text/html Date of [...] no medical history. 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 He drinks about 4 alcoholic drinks per week. Almita Thompson MD [address], [place], [address], [place] [facility] 12/26/2024 19:04:57 01/20/2025 text/html Date of [...] no medical history. 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 He drinks about 4 alcoholic drinks per week. Almita Thompson MD [address], [place], [address], [place] [facility] 01/20/2025 10:49:04
--- OUTSIDE RECORDS SUMMARY | 2025-02-09 08:07 | XMS_ITS ---
Author Organization [facility] Address [address] [address] Care Team Providers Care Vice President Of Customer Service Name Role Phone Nena Ortiz Primary Care Provider [phone] REASON FOR VISIT Labs Encounters Encounter Location Date Provider Diagnosis [facility] [address] [address] 12/27/2024 Nena Ortiz Plan Of Treatment No Information Progress Notes * Feliciano ALLENsDOB:1990 (34 yo M)Acc No.[id number]:12/27/2024 Patient:?Thuan ALLEN :1990???Age:34 Y???Sex:Male Address:[facility] [place], [address] * true * Date:? Generated for Faizan lundberg/Barbra/eTransmitting on:?02/09/2025 08:07 AM EDT
--- OUTSIDE RECORDS SUMMARY | 2025-02-09 08:08 | XMS_ITS ---
Author Organization [facility] Address [address] [address] Care Team Providers Care Retail General Manager Name Role Phone Nena Ortiz Primary Care Provider [phone] REASON FOR VISIT Needs R/S cancelled appr Encounters Encounter Location Date Provider Diagnosis [facility] [address] [address] 01/11/2025 Nena Ortiz Plan Of Treatment No Information Progress Notes * Feliciano ALLENsDOB:1990 (34 yo M)Acc No.[id number]:01/11/2025 Patient:?Thuan ALLEN :1990???Age:34 Y???Sex:Male Address:[facility] [place], [address] * * Date:?
--- OUTSIDE RECORDS SUMMARY | 2025-02-09 08:08 | XMS_ITS | Patient Health Record ---
Author Organization [facility] Address [address] [address] Care Team Providers Care Footwear Machinery Instructor Name Role Phone Nena Ortiz Primary Care Provider Allergies No Known Allergies Results Component Value Reference Range Notes COMPREHENSIVE METABOLIC PANE L Reviewed date:12/28/2024 08:04:32 AM Interpretation: Performing Lab:NL1, [facility] [id number] [place], [place] [address] Jamia Cannon M.D. Notes/Report: FASTING:YES SPECIALIZED COLLECTION. PATIENT [...] Reviewed date:12/28/2024 08:04:32 AM Interpretation: Performing Lab:NL1, [facility] [id number] [place], [place] [address] Jamia Cannon M.D. Notes/Report: FASTING:YES SPECIALIZED COLLECTION. PATIENT [...] PROTEIN Reviewed date:12/28/2024 08:04:32 AM Interpretation: Performing Lab:ANNABELLA1, [facility] [place], [place] [address] Jamia Cannon M.D. Notes/Report: FASTING:YES SPECIALIZED COLLECTION. PATIENT REFERRED TO ALTERNATE SITE. FASTING: YES C-REACTIVE PROTEIN <3.0 <8.0 mg/L TSH+FREE T4 Reviewed date:11/13/2024 09:17:35 PM Interpretation: Performing Lab:ANNABELLA1 [facility] [place], [place] [address] Jamia Cannon M.D. Notes/Report: TSH 5.55 0.40-4.50 mIU/L T4, FREE 1.1 0.8-1.8 ng/dL LIPID PANEL WITH REFLEX TO D IRECT LDL Reviewed date:11/13/2024 09:17:35 PM Interpretation: Performing Lab:ANNABELLA1 [facility] [place], [place] [address] Jamia Cannon M.D. Notes/Report: CHOLESTEROL, TOTAL 132 [...] LDL-C. Pradip SS et al. BOBBI. 2013;310(19): 1161-7296 (http://education.[employer]/faq/BJA650) CHOL/HDLC RATIO 4.4 <5.0 (calc) NON HDL CHOLESTEROL 102 <130 mg/dL (calc) For patients with diabetes plus 1 major ASCVD risk factor, treating to a non-HDL-C goal of <100 mg/dL (LDL-C of <70 mg/dL) is considered a therapeutic option. IRON, TIBC AND FERRITIN PANE L Reviewed date:11/13/2024 09:17:35 PM Interpretation: Performing Lab:ANNABELLA1 [facility] [address] Jamia Cannon M.D. Notes/Report: IRON, TOTAL 55 50-180 mcg/dL IRON BINDING CAPACITY 244 250-425 mcg/dL (juan jose c) % SATURATION 23 20-48 % (calc) FERRITIN 109 38-380 ng/mL IRON, TIBC AND FERRITIN PANE L Reviewed date:12/28/2024 08:04:32 AM Interpretation: Performing Lab:NLMary [facility] [place], [place] [address] Jamia Cannon M.D. Notes/Report: FASTING:YES SPECIALIZED COLLECTION. PATIENT REFERRED TO ALTERNATE SITE. FASTING: YES IRON, TOTAL 93 50-180 mcg/dL IRON BINDING CAPACITY 235 250-425 mcg/dL (juan jose c) % SATURATION 40 20-48 % (calc) FERRITIN 149 38-380 ng/mL URINE CYTOLOGY Reviewed date:12/28/2024 08:04:32 AM Interpretation: Performing Lab:NL1 [facility] [place], [place] [address] Jamia Cannon M.D. Notes/Report: SCREENER [facility], CT(ASCP) CT screening location: [place] [address] PATHOLOGIST Marion Farrell M.D., Board Certified in Anatomic and Clinical Pathology (electronic signature) A SOURCE Urine A PROCEDURE Cytology A GROSS DESCRIPTION The name on the container is in agreement with the requisition. 50 ml of clear, dark yellow fluid, received in Cytolyt fixative and processed by the ThinPrep method. (DC)12/23/2024 Gross exam(s) performed at: [facility] [address] [place] [address] Gunnery/Ordnance Officer: JAMIA CANNON MD A DIAGNOSIS NEGATIVE FOR HIGH-GRADE UROTHELIAL CARCINOMA. - BENIGN UROTHELIAL AND SQUAMOUS CELLS PRESENT. Red blood cells present. Acute inflammation present. TSH W/REFLEX TO FT4 Reviewed date:12/28/2024 08:04:32 AM Interpretation: Performing Lab:NL1, [facility] [place], [place] [address] Jamia Cannon M.D. Notes/Report: FASTING:YES SPECIALIZED COLLECTION. PATIENT REFERRED TO ALTERNATE SITE. FASTING: YES TSH W/REFLEX TO FT4 3.20 0.40-4.50 mIU/L CBC (INCLUDES DIFF/PLT) Reviewed date:12/28/2024 08:04:32 AM Interpretation: Performing Lab:NL1, [facility] [place], [place] [address] Jamia Cannon M.D. Notes/Report: FASTING:YES SPECIALIZED COLLECTION. PATIENT [...] MPV 9.8 7.5-12.5 fL ABSOLUTE NEUTROPHILS 2672 9498-3526 cells/uL ABSOLUTE LYMPHOCYTES 0483 581-6617 cells/uL ABSOLUTE MONOCYTES 459 200-950 cells/uL ABSOLUTE EOSINOPHILS 128 15-500 cells/uL ABSOLUTE BASOPHILS 61 0-200 cells/uL NEUTROPHILS 52.4 LYMPHOCYTES 34.9 MONOCYTES 9.0 EOSINOPHILS 2.5 BASOPHILS 1.2 CLIENT EDUCATION TRACKING Reviewed date:11/28/2024 09:26:19 AM Interpretation: Performing Lab:NL1, [facility] [address] Jamia Cannon M.D. Notes/Report: FASTING: NO CLIENT EDUCATION TRACKING The Requisition we received did not include a [facility] account number. To prevent delays in testing and processing of your orders please provide the following information with every order submitted: [facility] account number and account name Client address Client phone and fax number NPI number of ordering physician along with the physician name. URINE CYTOLOGY Reviewed date:11/28/2024 09:26:19 AM Interpretation: Performing Lab:[facility], [facility] [address] Jamia Cannon M.D. Notes/Report: SCREENER [facility], [place](ASCP) CT screening location: [place] [address] PATHOLOGIST Néstor Diaz M.D., Board Certified in Anatomic Pathology, Clinical Pathology and Cytopathology (electronic signature) A SOURCE Urine A PROCEDURE Cytology A GROSS DESCRIPTION The name on the container is in agreement with the requisition. 50 ml of clear, pale yellow fluid, received in Cytolyt fixative and processed by the ThinPrep method. (DC)11/16/2024 Gross exam(s) performed at: [facility] [address] [address] Gunnery/Ordnance Officer: JAMIA CANNON MD A DIAGNOSIS NEGATIVE FOR HIGH-GRADE UROTHELIAL CARCINOMA. - BENIGN UROTHELIAL AND SQUAMOUS CELLS PRESENT. QUESTASSURED 25-OH VIT D, (D 2,D3), LC/MS/MS Reviewed date:11/13/2024 09:17:35 PM Interpretation: Performing Lab:[facility], [facility] [address] Jamia Cannon M.D. Notes/Report: VITAMIN D,25-OH,TOTAL,IA 28 30-100 ng/mL Vitamin D Status 25-OH Vitamin D: Deficiency: <20 ng/mL Insufficiency: 20 - 29 ng/mL Optimal: > or = 30 ng/mL For 25-OH Vitamin D testing on patients on D2-supplementation and patients for whom quantitation of D2 and D3 fractions is required, the QuestAssure[facility](TM) 25-OH VIT D, (D2,D3), LC/MS/MS is recommended: order code 18594 (patients >2yrs). See Note 1 Note 1 For additional information, please refer to http://education.memory lane [employer]/faq/GYK967 (This link is being provided for informational/ educational purposes only.) VITAMIN B12 Reviewed date:11/13/2024 09:17:35 PM Interpretation: Performing Lab:NL1, [facility] [address] Jamia Cannon M.D. Notes/Report: VITAMIN B12 614 255-4760 pg/mL HEMOGLOBIN A1c Reviewed date:11/13/2024 09:17:35 PM Interpretation: Performing Lab:ANNABELLA1 [facility] [place], [place] [address] Jamia Cannon M.D. Notes/Report: HEMOGLOBIN A1c 5.5 [...] diagnosis of diabetes in children. According to [place] Diabetes Association (ADA) guidelines, hemoglobin A1c <7.0% represents optimal control in non- diabetic patients. Different metrics may apply to specific patient populations. Standards of Medical Care in Diabetes(ADA). C-REACTIVE PROTEIN Reviewed date:11/13/2024 09:17:35 PM Interpretation: Performing Lab:NL1, [facility] [place], [place] [address] Jamia Cannon M.D. Notes/Report: C-REACTIVE PROTEIN 9.7 <8.0 mg/L URINALYSIS, COMPLETE W/REFLE X TO CULTURE Reviewed date:11/13/2024 09:17:35 PM Interpretation: Performing Lab:[facility] [address] Jamia Cannon M.D. Notes/Report: COLOR YELLOW [...] DIFF/PLT) Reviewed date:11/13/2024 09:17:35 PM Interpretation: Performing Lab:[facility], [facility] [address] Jamia Cannon M.D. Notes/Report: WHITE BLOOD [...] MPV 10.0 7.5-12.5 fL ABSOLUTE NEUTROPHILS 2865 3335-4636 cells/uL ABSOLUTE LYMPHOCYTES 7054 400-6690 cells/uL ABSOLUTE MONOCYTES 458 200-950 cells/uL ABSOLUTE EOSINOPHILS 276 15-500 cells/uL ABSOLUTE BASOPHILS 31 0-200 cells/uL NEUTROPHILS 55.1 LYMPHOCYTES 30.2 MONOCYTES 8.8 EOSINOPHILS 5.3 BASOPHILS 0.6 COMPREHENSIVE METABOLIC PANE L Reviewed date:11/13/2024 09:17:35 PM Interpretation: Performing Lab:[facility], [facility] [address] Jamia Cannon M.D. Notes/Report: GLUCOSE 96 [...] 20 10-40 U/L ALT 25 9-46 U/L URINALYSIS, COMPLETE W/REFLE X TO CULTURE Reviewed date:11/28/2024 09:26:19 AM Interpretation: Performing Lab:[facility] [address] Jamia Cannon M.D. Notes/Report: FASTING: NO COLOR [...] REFLEXIVE URINE CULTURE NO C ULTURE INDICATED Reason For Referral Reason P with flank [...] Problem Status W/U Status Risk Notes Problem 50494623 Vitamin D deficiency (E55.9) Active confirmed Problem Mood disorder (11296309) Mood disorder (F39) Active confirmed Problem 70756547 Kidney stones (N20.0) Active confirmed Problem 769601474 Fatty liver (K76.0) Active confirmed Problem 291891198 Acquired hypothyroidism (E03.9) Active confirmed Problem 805200855 Mild intermitten t asthma without complication (J45.20) Active confirmed Problem 856723430633802 CRP elevated (R79.82) Active confirmed Problem 93709968 Hypertension, unspecified type (I10) Active confirmed Problem 82797455 Other migraine without status migrainosus, not intractable [...] Location Date Provider Diagnosis [facility] [address] [place], [place] [address] 08/10/2024 Nena Ortiz Hypertension, unspecified type I10 [facility] [address] [place], [place] [address] 09/17/2024 Nena Ortiz Encounter for genera l adult medical examination with abnormal findings Z00.01 ; Hypertension, unspecified type I10 ; Left foot pain M79.672 and Other migraine without status migrainosus, not intractable G43.809 [facility] [address] [place] [address] 10/15/2024 Nena Ortiz Left foot pain M79.6 72 and Left lateral ankle pain M25.572 [facility] [address] [place] [address] 11/18/2024 Nena Ortiz Flank pain R10.9 ; Fatty liver K76.0 and Frequent urination R35.0 [facility] [address] [place] [address] 12/20/2024 Nena Ortiz Kidney stones N20.0 ; CRP elevated R79.82 and Acquired hypothyroidism E03.9 [facility] [address] [address] 11/23/2024 Nena Barrett Md [address] [place] [address] 01/11/2025 Nena [place] [facility] [address] [place] [address] 08/10/2024 Nena Diana [facility] [address] [place] [address] 08/10/2024 Nena Diana [facility] [address] [place] [address] 11/16/2024 Nena Diana Diana Nena Boothe [address] [place] [address] 11/20/2024 Nena Cochrant [facility] [address] [place] [address] 11/20/2024 Nena Diana [facility] [address] [place] [address] 11/24/2024 Nena Diana [facility] [address] [place] [address] 12/27/2024 Nena Diana Assessments Encounter Date Diagnosis [...] Coverage Start Date Coverage End Date [employer] [facility] [address] [place] [address] [id number] Thuan Nguyen Self - patient is the insured Medical (General) History Medical History History ICD Code Mild intermittent asthma without complic ation J45.20 Other migraine without status migrainosu s, not intractable G43.809 Mood disorder F39
--- OUTSIDE RECORDS SUMMARY | 2025-02-09 08:08 | XMS_ITS | Clinical Summary ---
Author Organization [facility] it Address [address] [place] [address] Care Team Providers Care Assistant Program Manager Name Role Phone Rosamaria Sam MD Primary Care Provider [phone] Immunizations Name Administration Dates Next Due Pfizer [...] age to complete this topic Care Teams Assistant Program Manager Relationship Specialty Start Date End Date Rosamaria Sam MD [address] [place] [address] Dr [address] [facility] [place] [address] PCP - General 07/03/24
--- OUTSIDE RECORDS SUMMARY | 2025-02-09 08:08 | XMS_ITS | Continuity of Care Document ---
Author Name [facility] Organization [facility] Care Team Providers Care Company [employer] Name Role Phone [facility] Unavailable Unavailable Problems Combined list of problems from Department of Defense and Veterans Affairs facilities. It does not include entries that were removed or entered in error. Problem Status Onset Date Problem Type Date of Resolution Comments Source Chronic back pain Active Condition Feb 23, 2020 Entered By: RUTHIE ESTEBAN Comment: intermittent Rsided sciaticaApr 2019 Entered By: RUTHIE ESTEBAN Comment: degenerative disc disease by historySep 2019 Entered By: RUTHIE ESTEBAN Comment: April 2020 MRI - no abnormalityOct 13, 2023 Entered By: MIGUELITO GABRIEL Comment: reviewed [facility] [place] [facility] Chronic Post-Traumatic Stress Disorder ([facility] [id number]) Active Condition Oct 13, 2023 Entered By: MIGUELITO GABRIEL Comment: reviewed [facility] Comanagement Active Condition Dec 01, 2022 Entered By: RUTHIE ESTEBAN Comment: Belén Knight [facility] [place] [facility] Exposure to potentially hazardous substance Active Condition Dec 15, 2022 Entered By: JANEY RODRIGEZ Comment: [facility] (89GE) History of deployment Active Condition [facility] [place] [facility] Major depressive disorder [...] [place] [facility]ffective disorder Inactive Condition 10/13/2023 [facility] [place] Chronic post-traumatic stress disorder Inactive Condition 08/20/2021 [facility] LD Diagnosis: ICD-10-CM G47.30 Sleep apnea, unspecified Active Diagnosis [facility] Diagnosis: ICD-10-CM F43.12 Post-traumatic stress disorder, chronic Active Diagnosis [facility] Diagnosis: ICD-10-CM R06.83 Snoring Active Diagnosis [facility] D Diagnosis: ICD-10-CM K03.0 Excessive attrition of teeth Active Diagnosis [facility] Diagnosis: ICD-10-CM G47.33 Obstructive sleep apnea (adult) (pediatric) Active Diagnosis [facility] Diagnosis: ICD-10-CM K03.6 Deposits [accretions] on teeth Active Diagnosis [facility] Diagnosis: ICD-10-CM M54.59 Other low back pain Active Diagnosis [facility] Medications Combined list of outpatient medications from [...] AT BEDTIME ORAL ACTIVE Guy GABRIEL 2023 [facility] IELD SERTRALINE HCL 25MG TAB TAKE ONE TABLET BY MOUTH ONCE DAILY FOR POSTTRAU MATIC STRESS SYNDROME ORAL ACTIVE 01/21/2026 [id number] Guy GABRIEL 2024 60 [place] SERTRALINE HCL 25MG TAB TAKE ONE TABLET BY MOUTH ONCE DAILY FOR POSTTRAU MATIC STRESS SYNDROME ORAL DISCONT INUED (EDIT) 08/06/2025 [id number] Guy GABRIEL 2023 60 [place] SERTRALINE HCL 25MG TAB TAKE ONE TABLET BY MOUTH ONCE DAILY FOR MOOD ORAL DISCONT INUED 10/13/2024 [id number] Guy GABRIEL 2022 60 [place] SODIUM FLUORIDE 1.1% TOOTHPASTE BRUSH SMALL AMOUNT TO TEETH TWICE DAILY FOR TOOTH DECAY PREVENTI ON DENTAL ACTIVE 10/12/2025 [id number] 4 Geraldine KEYES 2023 51 [facility] [place] [facility] UBROGEPANT TAB TAKE BY MOUTH ONE TIME ORAL ACTIVE Guy GABRIEL 2023 [facility] IELD Results Combined list of recent chemistry, hematology [...] Sep 17, 2023 11:53 AM Reporting Lab: [facility] [address] [address] Performing Lab: [facility] [place] [address] [address] [facility] [place] [facility] LIPID PANEL FASTING CHOLESTEROL [MASS/VOLUM E] IN SERUM OR PLASMA 168 mg/dL 09/17 Specimen Type: SERUM No comment entered. Ordering Provider: JOSHUA ESTEBAN Report Released Date/Time: March 19, 2023 04:54 PM Reporting Lab: [facility] [place] [address] [address] Performing Lab: [facility] [place] [facility] [address] [facility] [address] [facility] [place] [facility] LIPID PANEL FASTING TRIGLYCERID E [MASS/VOLUM E] IN SERUM OR PLASMA 185 mg/dL 0 - 150 09/17 H Specimen Type: SERUM No comment entered. Ordering Provider: JOSHUA ESTEBAN Report Released Date/Time: March 19, 2023 04:54 PM Reporting Lab: [facility] [place] [facility] [address] [facility] [address] Performing Lab: [facility] [place] [address] [address] [facility] [place] [facility] LIPID PANEL FASTING CHOLESTEROL IN LDL [MASS/VOLUM E] IN SERUM OR PLASMA BY CALCULATION 91 mg/dL 0 - 129 09/17 Specimen Type: SERUM No comment entered. Ordering Provider: JOSHUA ESTEBAN Report Released Date/Time: March 19, 2023 04:54 PM Reporting Lab: [place] [facility] [place] [facility] [address] [facility] [address] Performing Lab: [place] [facility] [facility] [address] [facility] [address] [facility] [place] [facility] LIPID PANEL FASTING CHOLESTEROL .TOTAL/CHOL ESTEROL IN HDL [MASS RATIO] IN SERUM OR PLASMA 4.2 09/17 Specimen Type: SERUM No comment entered. Ordering Provider: JOSHUA ESTEBAN Report Released Date/Time: March 19, 2023 04:54 PM Reporting Lab: [facility] [place] [address] [address] Performing Lab: [place] [facility] [place] [address] [address] [facility] [place] [facility] LIPID PANEL FASTING CHOLESTEROL IN HDL [MASS/VOLUM E] IN SERUM OR PLASMA 40 mg/dL 40 - 60 09/17 Specimen Type: SERUM No comment entered. Ordering Provider: JOSHUA ESTEBAN Report Released Date/Time: March 19, 2023 04:54 PM Reporting Lab: [facility] [place] [address] [address] Performing Lab: [place] [facility] [place] [address] [address] [facility] [place] [facility] LIVER FUNCTION PROTEIN [MASS/VOLUM E] IN SERUM OR PLASMA 7.5 g/dL 6.0 - 8.3 09/17 Specimen Type: SERUM No comment entered. Ordering Provider: JOSHUA ESTEBAN Report Released Date/Time: March 19, 2023 04:54 PM Reporting Lab: [facility] [place] [address] [address] Performing Lab: [facility] [place] [facility] [address] [facility] [address] [place] [facility] [facility] LIVER FUNCTION ALBUMIN [MASS/VOLUM E] IN SERUM OR PLASMA 4.3 g/dL 3.5 - 5.0 09/17 Specimen Type: SERUM No comment entered. Ordering Provider: JOSHUA ESTEBAN Report Released Date/Time: March 19, 2023 04:54 PM Reporting Lab: [facility] [facility] [address] [facility] [address] Performing Lab: [facility] [place] [facility] [address] [facility] [address] [facility] [place] [facility] LIVER FUNCTION ALKALINE PHOSPHATASE [ENZYMATIC ACTIVITY/VO LUME] IN SERUM OR PLASMA 49 U/L 40 - 150 09/17 Specimen Type: SERUM No comment entered. Ordering Provider: JOSHUA ESTEBAN Report Released Date/Time: March 19, 2023 04:54 PM Reporting Lab: [facility] [place] [facility] [address] [facility] [address] Performing Lab: [facility] [facility] [address] [facility] [address] [facility] [place] [facility] LIVER FUNCTION ASPARTATE AMINOTRANSF ERASE [ENZYMATIC ACTIVITY/VO LUME] IN SERUM OR PLASMA 19 U/L 5 - 34 09/17 Specimen Type: SERUM No comment entered. Ordering Provider: JOSHUA ESTEBAN Report Released Date/Time: March 19, 2023 04:54 PM Reporting Lab: [facility] [place] [facility] [address] [facility] [address] Performing Lab: [facility] [place] [facility] [address] [facility] [address] [place] [facility] [place] [facility] LIVER FUNCTION ALANINE AMINOTRANSF ERASE [ENZYMATIC ACTIVITY/VO LUME] IN SERUM OR PLASMA 30 U/L 09/17 Specimen Type: SERUM No comment entered. Ordering Provider: JOSHUA ESTEBAN Report Released Date/Time: March 19, 2023 04:54 PM Reporting Lab: [facility] [place] [facility] [address] [facility] [address] Performing Lab: [place] [facility] [place] [facility] [address] [facility] [address] [facility] [place] [facility] LIVER FUNCTION BILIRUBIN.T OTAL [MASS/VOLUM E] IN SERUM OR PLASMA 0.8 mg/dL 0.2 - 1.2 09/17 Specimen Type: SERUM No comment entered. Ordering Provider: JOSHUA ESTEBAN Report Released Date/Time: March 19, 2023 04:54 PM Reporting Lab: [facility] [facility] [address] [facility] [address] Performing Lab: [place] [facility] [address] [address] [facility] BASIC METABOLIC PANEL (fasting) UREA NITROGEN [MASS/VOLUM E] IN SERUM OR PLASMA 13 mg/dL 7 - 25 09/17 Specimen Type: SERUM No comment entered. Ordering Provider: JOSHUA ESTEBAN Report Released Date/Time: March 19, 2023 04:54 PM Reporting Lab: [place] [facility] [address] [address] Performing Lab: [place] [facility] [facility] [address] [address] [facility] BASIC METABOLIC PANEL (fasting) GLUCOSE [MASS/VOLUM E] IN SERUM OR PLASMA 92 mg/dL 65 - 100 09/17 Specimen Type: SERUM No comment entered. Ordering Provider: JOSHUA ESTEBAN Report Released Date/Time: March 19, 2023 04:54 PM Reporting Lab: [facility] [facility] [address] [facility] [address] Performing Lab: [place] [facility] [address] [address] [facility] TRN [facility]USUSE [facility] BASIC METABOLIC PANEL (fasting) SODIUM [MOLES/VOLU ME] IN SERUM OR PLASMA 139 mmol/L 135 - 145 09/17 Specimen Type: SERUM No comment entered. Ordering Provider: JOSHUA ESTEBAN Report Released Date/Time: March 19, 2023 04:54 PM Reporting Lab: [facility] [facility] [address] [facility] [address] Performing Lab: [place] [facility] [facility] [address] [facility] [address] [place] [facility] [place] [facility] BASIC METABOLIC PANEL (fasting) POTASSIUM [MOLES/VOLU ME] IN SERUM OR PLASMA 4.2 mmol/L 3.5 - 5.0 09/17 Specimen Type: SERUM No comment entered. Ordering Provider: JOSHUA ESTEBAN Report Released Date/Time: March 19, 2023 04:54 PM Reporting Lab: [facility] [facility] [address] [facility] [address] Performing Lab: [place] [facility] [place] [address] [address] [facility] WSTRN [facility] BASIC METABOLIC PANEL (fasting) CHLORIDE [MOLES/VOLU ME] IN SERUM OR PLASMA 105 mmol/L 100 - 110 09/17 Specimen Type: SERUM No comment entered. Ordering Provider: JOSHUA ESTEBAN Report Released Date/Time: March 19, 2023 04:54 PM Reporting Lab: [place] [facility] [address] [address] Performing Lab: [place] [facility] [address] [address] [place] [facility] [place] [facility] BASIC METABOLIC PANEL (fasting) CARBON DIOXIDE, TOTAL [MOLES/VOLU ME] IN SERUM OR PLASMA 26 meq/L 20 - 30 09/17 Specimen Type: SERUM No comment entered. Ordering Provider: JOSHUA ESTEBAN Report Released Date/Time: March 19, 2023 04:54 PM Reporting Lab: [facility] [facility] [address] [facility] [address] Performing Lab: [place] [facility] [address] [address] [place] [facility] [facility] BASIC METABOLIC PANEL (fasting) CREATININE [MASS/VOLUM E] IN SERUM OR PLASMA 1.11 mg/dL 0.50 - 1.40 09/17 Specimen Type: SERUM No comment entered. Ordering Provider: JOSHUA ESTEBAN Report Released Date/Time: March 19, 2023 04:54 PM Reporting Lab: [facility] [address] [facility] [address] Performing Lab: [facility]ITALRRIVERVIEW [facility]ENTERN [facility] [address] [facility] [address] [facility] BASIC METABOLIC PANEL (fasting) GLOMERULAR FILTRATION RATE/1.73 SQ M.PREDICTED [VOLUME RATE/AREA] IN SERUM, PLASMA OR BLOOD BY CREATININE- BASED FORMULA (CKD-EPI 2020) 90 mL/min 60 09/17 Specimen Type: SERUM No comment entered. Ordering Provider: JOSHUA ESTEBAN Report Released Date/Time: March 19, 2023 04:54 PM Reporting Lab: [facility] [address] [address] Performing Lab: [facility]ITALRRIVERVIEW REGION[facility] CENTERN [address] [address] [facility] HEMOGLOBI N A1C PANEL HEMOGLOBIN [...] March 19, 2023 04:54 PM Reporting Lab: [facility] [address] [address] Performing Lab: [address] [address] [facility] TSH THYROTROPIN [UNITS/VOLU ME] IN SERUM OR PLASMA 2.26 u[IU]/ mL 0.35 - 5.00 09/17 Specimen Type: SERUM No comment entered. Ordering Provider: JOSHUA ESTEBAN Report Released Date/Time: March 19, 2023 04:54 PM Reporting Lab: [facility] [place] [place] [facility] [address] [facility] [address] Performing Lab: [place] [facility] [address] [address] [facility] [place] [place] [facility] CBC AND DIFF (AUTO) LEUKOCYTES [#/VOLUME] IN BLOOD BY AUTOMATED COUNT 11.72 10*3/u L 4.50 - 11.00 09/17 H Specimen Type: BLOOD No comment entered. Ordering Provider: JOSHUA ESTEBAN Report Released Date/Time: March 19, 2023 04:54 PM Reporting Lab: [facility]PITALRST. VINCENT'[facility] CHILTONTRN [facility]USUSETS [address] [address] Performing Lab: [facility]ITALRL TRN [facility] [address] [address] [facility]ITALRRIVERVIEW REGIONAL MEDICAL CENTERN [place] [facility] CBC AND DIFF (AUTO) ERYTHROCYTE S [#/VOLUME] IN BLOOD BY AUTOMATED COUNT 5.54 10*6/u L 4.23 - 5.66 09/17 Specimen Type: BLOOD No comment entered. Ordering Provider: JOSHUA ESTEBAN Report Released Date/Time: March 19, 2023 04:54 PM Reporting Lab: [facility] [place] [address] [address] Performing Lab: [facility] [place] [place] [address] [address] [facility] TRN [place] [facility] CBC AND DIFF (AUTO) HEMOGLOBIN [MASS/VOLUM E] IN BLOOD 14.9 g/dL 12.8 - 17 09/17 Specimen Type: BLOOD No comment entered. Ordering Provider: JOSHUA ESTEBAN Report Released Date/Time: March 19, 2023 04:54 PM Reporting Lab: [facility] [place] [address] [address] Performing Lab: [facility] [place] [facility] [address] [facility] [address] [facility] [place] [facility] CBC AND DIFF (AUTO) HEMATOCRIT [VOLUME FRACTION] OF BLOOD BY AUTOMATED COUNT 45.1 39.2 - 50.4 09/17 Specimen Type: BLOOD No comment entered. Ordering Provider: JOSHUA ESTEBAN Report Released Date/Time: March 19, 2023 04:54 PM Reporting Lab: [facility]ITALRL [facility] [place] [facility] [address] [facility] [address] Performing Lab: [facility]ITALRL [place] [place] [facility] [address] [facility] [address] [facility] HOSPITALRST. VINCENT'S CHILTONTRN [place] TS [facility] CBC AND DIFF (AUTO) MCV [ENTITIC VOLUME] BY AUTOMATED COUNT 81.4 fL 82 - 99 09/17 L Specimen Type: BLOOD No comment entered. Ordering Provider: JOSHUA ESTEBAN Report Released Date/Time: March 19, 2023 04:54 PM Reporting Lab: [facility]ITALRL [place]N [place] [facility] [address] [facility] [address] Performing Lab: [place] [facility] [place] [facility] [address] [facility] [address] [facility] TRN [place] [facility] CBC AND DIFF (AUTO) MCHC [MASS/VOLUM E] BY AUTOMATED COUNT 33.0 g/dL 30.8 - 35.1 09/17 Specimen Type: BLOOD No comment entered. Ordering Provider: JOSHUA ESTEBAN Report Released Date/Time: March 19, 2023 04:54 PM Reporting Lab: [facility] [place] [facility] [address] [facility] [address] Performing Lab: [facility]ITALRL [place] [place] [address] [address] [facility]ITALRST. VINCENT'S CHILTONTRN [place] TS [facility] CBC AND DIFF (AUTO) PLATELETS [#/VOLUME] IN BLOOD BY AUTOMATED COUNT 294 10*3/u L 140 - 360 09/17 Specimen Type: BLOOD No comment entered. Ordering Provider: JOSHUA ESTEBAN Report Released Date/Time: March 19, 2023 04:54 PM Reporting Lab: [facility] [facility] [address] [facility] [address] Performing Lab: [facility] [facility] [address] [facility] [address] [facility] [place] [facility] CBC AND DIFF (AUTO) ERYTHROCYTE DISTRIBUTIO N WIDTH [RATIO] BY AUTOMATED COUNT 13.9 12.0 - 16.0 09/17 Specimen Type: BLOOD No comment entered. Ordering Provider: JOSHUA ESTEBAN Report Released Date/Time: March 19, 2023 04:54 PM Reporting Lab: [facility] [place] [facility] [address] [facility] [address] Performing Lab: [facility] [place] [facility] [address] [facility] [address] [facility] [place] [facility] CBC AND DIFF (AUTO) MONOCYTES [#/VOLUME] IN BLOOD BY AUTOMATED COUNT 0.96 10*3/u L 0.30 - 1.10 09/17 Specimen Type: BLOOD No comment entered. Ordering Provider: JOSHUA ESTEBAN Report Released Date/Time: March 19, 2023 04:54 PM Reporting Lab: [facility] [place] [facility] [address] [facility] [address] Performing Lab: [facility] [place] [facility] [address] [facility] [address] [facility] [place] [facility] CBC AND DIFF (AUTO) MCH [ENTITIC MASS] BY AUTOMATED COUNT 26.9 pg 26.2 - 32.6 09/17 Specimen Type: BLOOD No comment entered. Ordering Provider: JOSHUA ESTEBAN Report Released Date/Time: March 19, 2023 04:54 PM Reporting Lab: [facility] [place] [facility] [address] [facility] [address] Performing Lab: [place] [facility] [place] [address] [address] [facility] [place] [facility] CBC AND DIFF (AUTO) NEUTROPHILS /100 LEUKOCYTES IN BLOOD BY AUTOMATED COUNT 76.1 43.7 - 75.8 09/17 H Specimen Type: BLOOD No comment entered. Ordering Provider: JOSHUA ESTEBAN Report Released Date/Time: March 19, 2023 04:54 PM Reporting Lab: [facility] [place] [facility] [address] [facility] [address] Performing Lab: [facility] [place] [facility] [address] [facility] [address] [facility] [place] [facility] CBC AND DIFF (AUTO) LYMPHOCYTES /100 LEUKOCYTES IN BLOOD BY AUTOMATED COUNT 13.8 14.0 - 42.3 09/17 L Specimen Type: BLOOD No comment entered. Ordering Provider: JOSHUA ESTEBAN Report Released Date/Time: March 19, 2023 04:54 PM Reporting Lab: [facility] [place] [facility] [address] [facility] [address] Performing Lab: [facility] [place] [facility] [address] [facility] [address] [facility] [place] [facility] CBC AND DIFF (AUTO) MONOCYTES/1 00 LEUKOCYTES IN BLOOD BY AUTOMATED COUNT 8.2 5.1 - 13.7 09/17 Specimen Type: BLOOD No comment entered. Ordering Provider: JOSHUA ESTEBAN Report Released Date/Time: March 19, 2023 04:54 PM Reporting Lab: [facility] [place] [facility] [address] [facility] [address] Performing Lab: [facility] [place] [facility] [address] [facility] [address] [facility] [place] [facility] CBC AND DIFF (AUTO) EOSINOPHILS /100 LEUKOCYTES IN BLOOD BY AUTOMATED COUNT 1.1 0.4 - 6.8 09/17 Specimen Type: BLOOD No comment entered. Ordering Provider: JOSHUA ESTEBAN Report Released Date/Time: March 19, 2023 04:54 PM Reporting Lab: [facility] [place] [facility] [address] [facility] [address] Performing Lab: [facility] [place] [facility] [address] [facility] [address] [facility] [place] [facility] CBC AND DIFF (AUTO) BASOPHILS/1 00 LEUKOCYTES IN BLOOD BY AUTOMATED COUNT 0.5 0.1 - 2.0 09/17 Specimen Type: BLOOD No comment entered. Ordering Provider: JOSHUA ESTEBAN Report Released Date/Time: March 19, 2023 04:54 PM Reporting Lab: [facility] [address] [address] Performing Lab: [facility] [address] [address] [facility] [place] [facility] CBC AND DIFF (AUTO) NEUTROPHILS [#/VOLUME] IN BLOOD BY AUTOMATED COUNT 8.91 10*3/u L 2.20 - 7.60 09/17 H Specimen Type: BLOOD No comment entered. Ordering Provider: JOSHUA ESTEBAN Report Released Date/Time: March 19, 2023 04:54 PM Reporting Lab: [facility] [place] [address] [address] Performing Lab: [facility] [address] [address] [facility] [facility] CBC AND DIFF (AUTO) LYMPHOCYTES [#/VOLUME] IN BLOOD BY AUTOMATED COUNT 1.62 10*3/u L 1.00 - 3.20 09/17 Specimen Type: BLOOD No comment entered. Ordering Provider: JOSHUA ESTEBAN Report Released Date/Time: March 19, 2023 04:54 PM Reporting Lab: [facility] [place] [address] [address] Performing Lab: [facility] [place] [address] [address] [facility] [place] [facility] CBC AND DIFF (AUTO) EOSINOPHILS [#/VOLUME] IN BLOOD BY AUTOMATED COUNT 0.13 10*3/u L 0.03 - 0.44 09/17 Specimen Type: BLOOD No comment entered. Ordering Provider: JOSHUA ESTEBAN Report Released Date/Time: March 19, 2023 04:54 PM Reporting Lab: [facility] [place] [address] [address] Performing Lab: [facility] [place] [facility] [address] [facility] [address] [facility] [place] [facility] CBC AND DIFF (AUTO) BASOPHILS [#/VOLUME] IN BLOOD BY AUTOMATED COUNT 0.06 10*3/u L 0.01 - 0.13 09/17 Specimen Type: BLOOD No comment entered. Ordering Provider: JOSHUA ESTEBAN Report Released Date/Time: March 19, 2023 04:54 PM Reporting Lab: [facility] [place] [facility] [address] [facility] [address] Performing Lab: [facility] [place] [facility] [address] [facility] [address] [facility] [place] [facility] CBC AND DIFF (AUTO) IMMATURE GRANULOCYTE S/100 LEUKOCYTES IN BLOOD BY AUTOMATED COUNT 0.3 0.0 - 0.7 09/17 Specimen Type: BLOOD No comment entered. Ordering Provider: JOSHUA ESTEBAN Report Released Date/Time: March 19, 2023 04:54 PM Reporting Lab: [place] [facility] [place] [facility] [address] [facility] [address] Performing Lab: [place] [facility] [place] [facility] [address] [facility] [address] [facility] CBC AND DIFF (AUTO) IMMATURE GRANULOCYTE S [#/VOLUME] IN BLOOD 0.04 10*3/u L 0.00 - 0.06 09/17 Specimen Type: BLOOD No comment entered. Ordering Provider: JOSHUA ESTEBAN Report Released Date/Time: March 19, 2023 04:54 PM Reporting Lab: [place] [facility] [place] [facility] [address] [address] Performing Lab: [place] [facility] [place] [address] [address] [facility] [place] [facility] Encounters Combined list of: 1) Encounters from Department of Veterans Affairs facilities going backup to the last 18 months, not all VA inpatient encounters are included; 2) Encounters from the Department of Defense facilities going backup to 280 months. Location Location Details Encounter Type Encounter Number Reason For Visit Attending Provider ADM Date DC Date Status Disposition Source [facility] Encounter [id number] 09/05 [facility] [place] O/P EST MOD 30-39 MIN [id number] Diagnos is: ICD-10- CM M54.59 Other low back pain Zaheer ESTEBAN 09/17 [facility] [place] [facility] Out[facility] Encounter [id number] 09/19 [facility] [place] En[facility] [id number] 09/24 [facility] [place] Encounter [id number] 09/26 [facility] [place] Encounter [id number] 09/26 [facility] [place] Out[facility] Encounter [id number] 09/26 [facility] [place] Encounter [id number] 09/30 [facility] [place] Encounter [id number] 10/02 [facility] [place] [place] Outpatient Encounter [id number] 10/06 [facility] OFFICE O/P EST HI 40-54 MIN [id number] Diagnos is: ICD-10- CM F43.12 Post-tr aumatic stress disorde r, chronic ST TYRA GABRIEL G 10/13 [place] [facility] Encounter [id number] 11/03 [facility] [place] En[place] [id number] 12/18 [place] En[place] [id number] Diagnos is: ICD-10- CM F43.12 Post-tr aumatic stress disorde r, chronic ST TYRA GABRIEL G 12/18 [place] [facility] Out[facility] Encounter [id number] 12/22 [facility] [place] Encounter [id number] 02/11 [facility] [place] Out[facility] Encounter [id number] 02/19 [facility] [place] OFF[facility] O/P NEW LOW 30 MIN [id number] Diagnos is: ICD-10- CM G47.33 Obstruc tive sleep apnea (adult) (pediat sarah) PRISCA KEYES CTORIA J 02/22 [facility] Encounter [id number] 02/22 [facility] [place] Encounter [id number] 03/26 [facility] [place] Out[place] Encounter [id number] 03/29 [place] O/P EST HI 40 MIN [id number] Diagnos is: ICD-10- CM F43.12 Post-tr aumatic stress disorde r, chronic ST TYRA GABRIEL G 04/01 [facility] [place] [facility] Out[facility] Encounter [id number] 04/23 [facility] [place] ORAL DEVICE/RODDY LIANCE CUSFAB [id number] Diagnos is: ICD-10- CM G47.33 Obstruc tive sleep apnea (adult) ([facility] sarah) PRISCA KEYES CTORIA J 04/26 [facility] [place] Encounter [id number] 06/01 [facility] [place] OFF[facility] O/P EST LOW 20 MIN [id number] Diagnos is: ICD-10- CM G47.33 Obstruc tive sleep apnea (adult) ([facility] sarah) PRISCA KEYES CTORIA J 06/02 [facility] [place] Encounter [id number] 07/12 [facility] [place] [place] OFF[facility] O/P EST LOW 20 MIN [id number] Diagnos is: ICD-10- CM G47.33 Obstruc tive sleep apnea (adult) ([facility] sarah) PRISCA KEYES CTORIA J 07/13 [facility] [place] OFF[facility] O/P EST LOW 20 MIN [id number] Diagnos is: ICD-10- CM G47.33 Obstruc tive sleep apnea (adult) ([facility] sarah) PRISCA KEYES CTORIA J 07/14 [facility] [place] Out[facility] Encounter [id number] 07/15 [facility] [place] Out[facility] Encounter [id number] [facility] [place] [place] [facility] OFFICE O/P EST LOW 20 MIN [id number] Diagnos is: ICD-10- CM G47.33 Obstruc tive sleep apnea (adult) ([facility]) PRISCA KEYES CTORIA J 07/27 [facility] [place] Out[facility] Encounter [id number] 07/29 [facility] [place] OFF[facility] O/P EST MOD 30 MIN [id number] 1BY. 12 Diagnos is: ICD-10- CM F43.12 Post-tr aumatic stress disorde r, chronic GABRIEL,ST EPHEN G 08/05 [facility] [place] [facility] [place] [facility] Outpatient Encounter [id number] 09/21 [facility] [place] [facility] [place] Out[facility] Encounter [id number] 09/24 [facility] [place] [facility] Out[facility] Encounter [id number] [facility] [place] [facility] Out[facility] Encounter [id number] 10/08 [facility] [place] [place] O/P EST MOD 30 MIN [id number] Diagnos is: ICD-10- CM F43.12 Post-tr aumatic stress disorde r, chronic HARVEY,ST MARY G 10/11 [place] [facility] COMPREHENS VE ORAL EVALUATION [id number] 1. Diagnos is: ICD-10- CM G47.33 Obstruc tive sleep apnea (adult) ([facility] sarah) PRISCA KEYES CTORIA J 10/11 [facility] [place] Out[facility] Encounter [id number] 1.10/26 [facility] [place] [place] [facility] CASE MGMT-ORAL HEALTH LIT [id number] 1. Diagnos is: ICD-10- CM K03.6 Deposit s [accret ions] on teeth JENNIFER,JOHNNA DINORAH K 10/27 [facility] [place] OFF[facility] O/P EST LOW 20 MIN [id number] Diagnos is: ICD-10- CM G47.33 Obstruc tive sleep apnea (adult) (pediat sarah) PRISCA KEYES CTORIA J 11/02 [facility] [place] [place] Out[facility] Encounter [id number] [facility] [place] [facility] [place] Out[facility] Encounter [id number] [facility] [place] Outpatient Encounter [id number] 11/22 [facility] [place] SYNCH AUDIO-ONLY EST LOW 20 [id number] Diagnos is: ICD-10- CM F43.12 Post-tr aumatic stress disorde r, chronic ST TYRA GABRIEL G 12/02 [facility] [place] [facility] Outpatient Encounter [id number] 12/02 [place] [facility] [place] [facility] [place] [facility] Outpatient Encounter [id number] Sandra DAMIAN H 12/09 [place] [facility] [place] [facility] FEE [id number] Diagnos is: ICD-10- CM G47.30 Sleep apnea, unspeci fied Justus MAGALLON 12/23 [facility] (631GE) SLEEP STUDY UNATT&RESP EFFT [id number] Diagnos is: ICD-10- CM G47.30 Sleep apnea, unspeci fied VIDAFRANCISCO JAVIER SARAH 12/23 [facility] (631GE) [place] [facility] [place] [facility] RESIN TWO SURFACES-A NTERIOR [id number] Diagnos is: ICD-10- CM K03.0 Excessi ve attriti on of teeth PRISCA KEYES CTORIA J 12/30 [place] [facility] [place] [facility] [place] [facility] Outpatient Encounter [id number] 01/11 [place] [facility] [place] [facility] SLEEP STUDY UNATT&RESP EFFT [id number] Diagnos is: ICD-10- CM R06.83 Snoring VIDA,FREDE SARAH 01/13 [facility] OFFICE O/P EST MOD 30 MIN [id number] Diagnos is: ICD-10- CM F43.12 Post-tr aumatic stress disorde r, chronic ST TYRA GABRIEL G 01/20 [facility] SLEEP STUDY UNATT&RESP EFFT [id number] Diagnos is: ICD-10- CM G47.30 Sleep apnea, unspeci fied CURIOSO-UY VICTORIA 02/08 [facility] Social History Combined list of available smoking, tobacco, and other social history from Department of Defense and Veterans Affairs facilities. Social History Type Response Date Comment Sourc e Tobacco smoking status NHIS VA-TOBACCO NEVER USED 11/20/2022 [facility] D History of tobacco use VA-TOBACCO NEVER USED 11/26/2021 [facility] D History of tobacco use VA-TOBACCO NEVER USED 04/21/2020 [facility] [place] [facility] Plan of Care List of future care activities from Department of Veterans Affairs facilities. Additional future care activities may be listed in the Assessment and Plan section. Date/Time Care Activity Care Activity Detail Facili ty 03/10/2025 AMBULATORY - PSYCHIATRY AMBULATORY - PSYC [facility]
--- OUTSIDE RECORDS SUMMARY | 2025-02-09 08:08 | XMS_ITS | Encounter Summary ---
Author Name [facility] [place] [facility] [place] [facility] [place] Address [address] [place] [address] Support Name Relationship Address Phone LEIGHTON ALLEN Next of Kin [address] [place] [address] LEIGHTON ALLEN Emergency Contact [address] [place] [address] Care Team Providers Care Dough Cutter Name Role Phone CORINNA SEVILLA Primary Care [...] Relationship to Policy Gloria JULIANNA [place]BS OF [place] POINT OF SERVICE [facility] DEPT OF COR Aug 17, 2020 [id number] 00H [id number] [phone] ALLEN,CAR LOS PATIENT BCBS YOUSIF (BLUE CARD) PREFERRED PROVIDER ORGANIZAT ION (PPO) ST [facility] DEPT OF COR Aug 17, 2020 [id number] 00H [id number] [phone] ALLEN,CAR LOS PATIENT CAREMARK PRESCRIPT ION [facility] Aug 17, 2020 [id number] [phone] ALLEN,CAR LOS PATIENT [facility]EM[place] PRESCRIPT ION [facility] Aug 17, 2020 [id number] [phone] ALLEN,CAR LOS PATIENT Selected Encounter This section includes the information on record at [place] for the Encounter. Date/Time Encounter Type Encounter Description Reason Pro vider Source IHE Encounter Template Text not used by VA
--- OUTSIDE RECORDS SUMMARY | 2025-02-09 08:08 | XMS_ITS | Encounter Summary ---
Author Name [facility] [place] [facility] [place] Address [address] [place] [address] Support Name Relationship Address Phone TIFFANY LEIGHTON Next of Kin [address] [address] LEIGHTON ALLEN Emergency Contact [address] [place] [address] Care Team Providers Care Pharmacist Aide Name Role Phone CORINNA SEVILLA Primary [...] CT DEPT OF COR Aug 17, 2020 [id number] 00H [id number] [phone] ALLEN,CAR LOS PATIENT BCBS YOUSIF (BLUE CARD) PREFERRED PROVIDER ORGANIZAT ION (PPO) ST OF [facility] DEPT OF COR Aug 17, 2020 [id number] 00H [id number] ALLEN,CAR LOS PATIENT CAREMARK PRESCRIPT ION [facility] Aug 17, 2020 [id number] [phone] ALLEN,CAR LOS PATIENT CAREMARK PRESCRIPT ION [facility] Aug 17, 2020 [id number] ALLEN,CAR LOS PATIENT Selected Encounter This section includes the information on record at [place] for the Encounter. Date/Time Encounter Type Encounter Description Reason Provider Source Oct 11, 2024 09:00 AM OFFICE O/P EST MOD 30 MIN [facility] ICD-10-CM F43.12 Post-traumatic stress disorder, chronic GABRIELHEAVENLYPERRI Vieyra Katie Encounter Template Text not used by [place] Assessments - Encounter Diagnoses This section includes the primary and secondary diagnoses documented for the Encounter. Date/Time Primary/Secondary Diagnosis Diagnosis Name Provider Source Oct 11, 2024 09:44 AM PRIMARY Post-traumatic stress disorder, chronic MIGUELITO GABRIEL [place] Plan of Treatment: Future Appointments (+ 6 months) and Future Tests (+/- 45 days) The Plan of Treatment section includes future care activities for the patient from all [place] [facility]. This section includes future appointments [...] 27, 2024 04:00 PM AMBULATORY - NONE [place] [facility] [place] [facility] Nov 02, 2024 09:30 AM AMBULATORY - NONE [place] [facility] [place] [facility] Nov 22, 2024 03:30 PM AMBULATORY - MEDICINE [place] [place] [facility] Dec 23, 2024 09:00 AM AMBULATORY - MEDICINE [place] [facility] Dec 23, 2024 09:01 AM AMBULATORY - MEDICINE [place] [facility] Dec 30, 2024 11:00 AM AMBULATORY - NONE [place] [facility] [place] [facility] Jan 13, 2025 08:30 AM AMBULATORY - MEDICINE [facility] Jan 20, 2025 08:30 AM AMBULATORY - PSYCHIATRY [facility] Mar 10, 2025 08:30 AM AMBULATORY - PSYCHIATRY [facility] Social History: Smoking Status (Most [...] 20, 2022 01:00 PM VA-TOBACCO NEVER USED [place] Tobacco Use History This section includes a history of the smoking, or tobacco-related health factors, that were collected on or before the date of the Encounter. The data comes from the [place] facility where the Encounter took place. Date/Time Smoking Status/Tobacco Use Comment Megan mcconnell Nov 26, 2021 11:30 AM VA-TOBACCO NEVER USED [place] Encounter Notes: All associated encounter notes This section contains the clinical notes associated to the Encounter. Date/Time Encounter Note(s) Provider Source Oct 11, 2024 09:03 AM TELEHEALTH NOTE: LOCAL TITLE: [place] VIDEO CONNECT PSYCHIATRIST NOTE STANDARD TITLE: TELEHEALTH NOTE DATE OF NOTE: OCT 11, 2024@09:03 ENTRY DATE: OCT 11, 2024@09:03:10 AUTHOR: MIGUELITO GABRIEL EXP COSIGNER: URGENCY: STATUS: COMPLETED VA Video Connect (VVC) Standard Documentation VVC Clinician Resources Only: E911 (Emergency Call Relay Center): [phone] [facility] Crisis Line - 988 then press #1. [facility] Suicide Coordinator [phone], Ext. [phone]; Back-up Ext. [phone] [place] Police, IMTIAZ, [place] [phone] Introduction: Visit is being conducted by [place] [employer] [facility]. [place] identified with 2 identifiers: [X] Full Name [X] Date of [ ] [place] ID Card Emergency Plan: [place] confirmed and/or provided the following information in case of emergency or technology failure. PATIENT PHONE - PHONE NUMBER [CELLULAR] - Is patient phone number correct, if not, enter below: 's phone number: DENISSE ALLEN [address] [place] [address], [address] 's [facility] [place]'s emergency contact name and phone number: chart reported that location is private and safe: Yes Informed Consent: [place] informed of the risks and benefits of Telehealth video care. [place] has the right to refuse video services. If refuses video visit, a cuoo-be-kusc visit will be scheduled. 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 Chronic Post-Traumatic Stress Disorder ([facility] [id number]) 4. Major depressive disorder 5. Comanagement 6. [...] denied suicidal and violent ideation, but the [facility] Crisis Line information and number were reviewed w patient as a precaution over the phone. The patient also understands to call 911 or to go to ER in the event of an emergency. Psychotherapy discussion -- As noted in previous notes, pt is no longer seeing [facility] for psychotherapy , and pt reports can't [...] this VA (local) and dispensed from another [place] or DoD facility (remote) as well as [...] By: 10/11/2024 09:57 /mercedes/ Makenzie Mccarthy [employer] SENIOR ORACLE DATABASE DEVELOPER MIGUELITO GABRIEL
--- OUTSIDE RECORDS SUMMARY | 2025-02-09 08:08 | XMS_ITS | Encounter Summary ---
Author Name [facility] [place] [facility] [place] [facility] [place] Address [address] [place] [address] Support Name Relationship Address Phone LEIGHTON ALLEN Next of Kin [address] [address] LEIGHTON ALLEN Emergency Contact [address] [place] [address] Care Team Providers Care Model And Dye Person Name Role Phone CORINNA SEVILLA Primary Care [...] CT DEPT OF COR Aug 17, 2020 [id number] ALLEN,CAR LOS PATIENT BCBS [place] (BLUE CARD) PREFERRED PROVIDER ORGANIZAT ION (PPO) ST OF [facility] DEPT OF COR Aug 17, 2020 [id number] [id number] ALLEN,CAR LOS PATIENT CAREMARK PRESCRIPT ION [facility] Aug 17, 2020 [id number] [phone] ALLEN,CAR LOS PATIENT CAREMARK PRESCRIPT ION [facility] Aug 17, 2020 [id number] [phone] ALLEN,CAR LOS PATIENT Selected Encounter This section includes the information on record at [place] for the Encounter. Date/Time Encounter Type Encounter Description Reason Pro vider Source Jan 11, 2025 02:30 PM Outpatient Encounter SLEEP MEDICINE IHE Encounter Template Text not used by [place] Plan of Treatment: Future Appointments (+ 6 months) and Future Tests (+/- 45 days) The Plan of Treatment section includes future care activities for the patient from all [place] [facility]. This section includes future [...] AM AMBULATORY - PSYCHIATRY [facility] Mar 10, 2025 08:30 AM AMBULATORY - PSYCHIATRY [facility] April 12, 2025 09:30 AM AMBULATORY - MEDICINE [facility] NTRL TRN [facility] Apr 26, 2025 03:00 PM AMBULATORY - NONE [facility] Active, Pending, and Scheduled Orders This section includes a listing of several types of active, pending, and scheduled orders, including clinic medications orders, diagnostic test orders, procedure orders and consult orders; where the start date of the order is 45 days before the date of the Encounter or 45 days after the date of theEncounter. The data comes from all [place] treatment [facility]. Test Date/Time Test Type Test Details Facility Name Dec 02, 2024 09:37 AM Consult Order [facility]- PSYCHOTHERAPY Cons Valet Manager's Choice [facility] [place] [facility] Social History: Smoking Status (Most current) [...] 21, 2020 02:14 PM VA-TOBACCO [facility] Encounter Notes: All associated encounter notes This [...] NEVER TURNED ON. PATIENT WILLING TO RESCHEDULE. TRUCK REPAIR SERVICE ESTIMATOR WILL ENTER NEW CONSULT. /mercedes/ KHARI MCMANUS NURSING SUPPORT WORKER Signed: 01/11/2025 14:16 Receipt Acknowledged By: 02/01/2025 10:44 /mercedes/ CORINNA SEVILLA NP NURSE PRACTITIONER CALEB MCPHERSON
--- OUTSIDE RECORDS SUMMARY | 2025-02-09 08:08 | XMS_ITS | Encounter Summary ---
Author Name [facility] [place] [facility] [place] [facility] [place] Address [address] [place] [address] Support Name Relationship Address Phone TIFFANY LEIGHTON Next of Kin [address] [place] [address] LEIGHTON ALLEN Emergency Contact [address] [place] [address] Care Team Providers Care Medical Art Therapist Name Role Phone CORINNA SEVILLA Primary Care [...] CT DEPT OF COR Aug 17, 2020 [id number] ALLEN,CAR LOS PATIENT BCBS YOUSIF (BLUE CARD) PREFERRED PROVIDER ORGANIZAT ION (PPO) [facility] OF [facility] DEPT OF COR Aug 17, 2020 [id number] [phone] ALLEN,CAR LOS PATIENT CAREMARK PRESCRIPT ION [facility] Aug 17, 2020 [id number] ALLEN,CAR LOS PATIENT CAREMARK PRESCRIPT ION [facility] Aug 17, 2020 [id number] [phone] ALLEN,CAR LOS PATIENT Selected Encounter This section includes the information on record at [place] for the Encounter. Date/Time Encounter Type Encounter Description Reason Provider Source Aug 05, 2024 02:00 PM OFFICE O/P EST MOD 30 MIN [facility] - IND ICD-10-CM F43.12 Post-traumatic stress disorder, chronic ANTHONY GABRIEL Katie Encounter Template Text not used by [place] Assessments - Encounter Diagnoses This section includes the primary and secondary diagnoses documented for the Encounter. Date/Time Primary/Secondary Diagnosis Diagnosis Name Provider Source Aug 05, 2024 07:10 PM PRIMARY Post-traumatic stress disorder, chronic MIGUELITO GABRIEL JOSÉ Plan of Treatment: Future Appointments (+ 6 months) and Future Tests (+/- 45 days) The Plan of Treatment section includes future care activities for the patient from all [place] [facility]. This section includes future appointments [...] 11, 2024 09:00 AM AMBULATORY - PSYCHIATRY [facility] Oct 11, 2024 09:30 AM AMBULATORY - NONE [place] [facility] [place] [facility] Oct 27, 2024 04:00 PM AMBULATORY - NONE [facility] [place] [facility] Nov 02, 2024 09:30 AM AMBULATORY - NONE [place] [facility] [place] [facility] Nov 22, 2024 03:30 PM AMBULATORY - MEDICINE [place] [facility] [place] [facility] Dec 23, 2024 09:00 AM AMBULATORY - MEDICINE [place] [facility] [place] [facility] Dec 23, 2024 09:01 AM AMBULATORY - MEDICINE [place] [facility] [place] [facility] Dec 30, 2024 11:00 AM AMBULATORY - NONE [facility] [place] [facility] Jan 13, 2025 08:30 AM AMBULATORY - MEDICINE [facility] Jan 20, 2025 08:30 AM AMBULATORY - PSYCHIATRY [facility] Active, Pending, and Scheduled Orders This [...] PM Consult Order COMMUNITY CARE-D[facility]AL GENERAL Cons Front Desk Receptionist's Choice [facility] [place] [facility] Social History: Smoking [...] Facil ity Nov 20, 2022 01:00 PM AL-TOBACCO NEVER USED [facility] Tobacco Use History This section includes a history of the smoking, or tobacco-related health factors, that were collected on or before the date of the Encounter. The data comes from the [place] facility where the Encounter took place. Date/Time Smoking Status/Tobacco Use Comment F acility Nov 26, 2021 11:30 AM AL-TOBACCO NEVER USED [facility] Encounter Notes: All associated encounter notes This section contains the clinical notes associated to the Encounter. Date/Time Encounter Note(s) Provider Source Aug 05, 2024 02:04 PM TELEHEALTH NOTE: LOCAL TITLE: [place] VIDEO CONNECT PSYCHIATRIST NOTE STANDARD TITLE: TELEHEALTH NOTE DATE OF NOTE: AUG 05, 2024@14:04 ENTRY DATE: AUG 05, 2024@14:04:13 AUTHOR: MIGUELITO GABRIEL EXP COSIGNER: URGENCY: STATUS: COMPLETED [place] Video Connect (VVC) Standard Documentation VVC Clinician Resources Only: E911 (Emergency Call Relay Center): [phone] National Veterans Crisis Line - 988 then press #1. IMTIAZ Suicide Coordinator [phone], Ext. [phone]; Back-up Ext. [phone] [place] Police, Darryl ZAPATA [phone] Introduction: Visit is being conducted by [place] [employer] Connect. [place] identified with 2 identifiers: [X] Full Name [X] Date of [ ] [place] ID Card Emergency Plan: [place] confirmed and/or provided the following information in case of emergency or technology failure. PATIENT PHONE - PHONE NUMBER [CELLULAR] - Is patient phone number correct, if not, enter below: 's phone number: DENISSE ALLEN [address] [place] [address], [phone] [place]'s present location and address for appointment: home [place]'s emergency contact name and phone number: chart [place] reported that location is private and safe: Yes Informed Consent: informed of the risks and benefits of Telehealth video care. [place] has the right to refuse video services. If refuses video visit, a [id number] visit will be scheduled. 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 Denies street drugs Denies medication side effects. No daytime sedation. Reports compliance with Zoloft 25 mg daily. Active problems - Computerized Problem List is the source for the followin. Exposure to potentially hazardous substance 2. Sleep apnea 3. Chronic Post-Traumatic Stress Disorder ([facility] [id number]) 4. Major depressive disorder 5. Comanagement 6. [...] denied suicidal and violent ideation, but the [place] Crisis Line information and number were reviewed [...] By: 08/06/2024 07:54 /mercedes/ Makenzie Mccarthy ADVANCED MEDICAL RECRUITER 08/06/2024 08:52 /mercedes/ CALI GUSTAFSON ADVANCED MEDICAL RECRUITER MIGUELITO GABRIEL
--- OUTSIDE RECORDS SUMMARY | 2025-02-09 08:08 | XMS_ITS | Encounter Summary ---
Author Name [facility] [facility] [place] Organization [facility] [place] Address [address] [place] [address] Support Name Relationship Address Phone TIFFANY LEIGHTON Next of Kin [address] [place] [address] LEIGHTON ALLEN Emergency Contact [address] [place] [address] Care Team Providers Care Sterile Process Tech Name Role Phone CORINNA SEVILLA Primary [...] CT DEPT OF COR Aug 17, 2020 [id number] ALLEN,CAR LOS PATIENT BCBS YOUSIF (BLUE CARD) PREFERRED PROVIDER ORGANIZAT ION (PPO) ST OF [facility] DEPT OF COR Aug 17, 2020 [id number] ALLEN,CAR LOS PATIENT CAREMARK PRESCRIPT ION [facility] Aug 17, 2020 [id number] [phone] ALLEN,CAR LOS PATIENT CAREMARK PRESCRIPT ION [facility] Aug 17, 2020 [id number] [phone] ALLEN,CAR LOS PATIENT Selected Encounter This section includes the information on record at [place] for the Encounter. Date/Time Encounter Type Encounter Description Reason Provider Source Feb 08, 2025 11:33 PM SLEEP STUDY UNATT&RESP EFFT SLEEP STUDY ICD-10-CM G47.30 Sleep apnea, unspecified MAYOIOSO-UY,YIN BURNETT Katie Encounter Template Text not used by [place] Assessments - Encounter Diagnoses This section includes the primary and secondary diagnoses documented for the Encounter. Date/Time Primary/Secondary Diagnosis Diagnosis Name Provider Source Feb 08, 2025 11:33 PM PRIMARY Sleep apnea, unspecified MAYOIOSO-UY,YIN BURNETT [facility] Plan of Treatment: Future Appointments (+ 6 months) and Future Tests (+/- 45 days) The Plan of Treatment section includes future care activities for the patient from all [place] [facility]. This section includes future appointments and [...] 12, 2025 09:30 AM AMBULATORY - [facility]ICINE [facility] Apr 26, 2025 03:00 PM AMBULATORY - NONE [facility] Encounter Notes: All associated encounter notes This section contains the clinical notes associated to the Encounter. Date/Time Encounter Note(s) Provider Source Feb 08, 2025 11:33 PM SLEEP MEDICINE CON SULT: LOCAL TITLE: Sleep Study Interpretation Consult Note STANDARD TITLE: SLEEP MEDICINE CONSULT DATE OF NOTE: FEB 08, 2025@23:33:16 ENTRY DATE: FEB 08, 2025@23:33:17 AUTHOR: VICTORIA FOX EXP COSIGNER: URGENCY: STATUS: COMPLETED [facility] HOME SLEEP APNEA TEST - NOXT3 Study date: 01/20/2025 Name (Last, First): DENISSE ALLEN SSN: [id number] : 1990 Requesting Provider: CORINNA SEVILLA IMPRESSION - This HST was done with patient using MAD. While on MAD there is Mild obstructive sleep apnea (CHARLES) based on an LESLIE-3% of 9.5 /hr. The supine LESLIE-3% was 6.2/hr and the non-supine LESLIE-3% was 9.7/hr. - The oxygen saturation finn was 84.0%. The mean oxygen saturation was 92.9%. The time spent below 90% was 7.4 minutes or 1.5% of the validated monitoring time. - NOTE: When compared to prior HST of 2021, there was no significant improvement of the respiratory events while on MAD. Patient snored for 44.8 minutes during the study. - HST of 02/17/22: Mild CHARLES, the overall HST-LESLIE was 8.5/hr as well as mild oxygen desaturations. The mean arterial oxygen saturation on room air was 93.2 % and nadired to 88.0%. RECOMMENDATIONS - Follow-up in dentistry for management and further adjustment of current MAD. - Current [employer] recommendations for treatment of obstructive sleep apnea includes 1) positive airway pressure (PAP) as initial therapy, and alternative therapy may include oral appliance therapy, ENT evaluation for upper airway surgery; Inspire/hypoglossal nerve stimulator therapy. Treatment also includes weight reduction if BMI is elevated, avoidance of sleeping in the supine position and reduction of alcohol and medications that contribute to upper airway relaxation. - A copy of this report will be forwarded to the referring provider. - The will receive a letter with the summary of sleep study results. STUDY TECHNIQUE AND DEFINITIONS This home sleep apnea test was performed using an unattended type 3 portable monitor with at least 4 recorded channels including airflow, dual thoracoabdominal respiratory effort belts (with RIP), oximetry, pulse rate, actigraphy, body position, and snore sensor. Study was scored and interpreted based on AASM guidelines. 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 ([facility] [id number]) Medication(s): ELETRIPTAN 20MG TAB 6 PKG, RIZATRIPTAN 10MG DISINTEGRATE TAB, SERTRALINE HCL 25MG TAB, TRAZODONE HCL 50MG TAB Night 1 (2025-01-20): Total monitoring time (MT)*: 482.6 minutes Recording start time: 10:32 PM Recording stop time: 8:32 AM Total recording Time (TRT)*: 600.0 minutes STUDY DETAILS Signal Quality: Oximeter: 94.9%, Nasal cannula: 100.0%, Thorax: 100.0%, Abdomen: 100.0% RESPIRATORY PARAMETERS LESLIE-3% was 9.5 /hr LESLIE-4% was 5.0 /hr Hypopnea index was 9.5 /hr* Obstructive Apnea Index was 0.0 /hr* Central Apnea Index was 0.0 /hr* Mixed Apnea Index was 0.0 /hr* *For percentage of total, see scored report in [employer]. Breakdown of total respiratory events: 76 hypopneas (3% rule), 0 obstructive apneas, 0 mixed apneas, and 0 central apneas. Supine LESLIE-3% was 6.2 /hr (in 38.8 minutes) Non-supine LESLIE-3% was 9.7 /hr (in 443.5 minutes) Patient snored for 44.8 minutes during the study. BODY POSITION Supine sleep was 38.8 minutes (8.0% of MT) Non-supine sleep was 443.5 minutes (91.9% of MT) *For breakdown of non-supine data see scored report in [employer]. OXIMETRY BRIAN-3% was 9.6 /hr BRIAN-4% was 5.1 /hr Mean oxygen saturation was 92.9% Lowest oxygen saturation was 84.0% Average desaturation drop was 4.0% Average low desaturation was 90.3% Saturations < 90%: 7.4 minutes (1.5% of MT) Saturations <= 88%: 4.2 minutes (0.9% of MT) Saturations < 85%: 0.1 minutes (0.0% of MT) Saturations <80%: 0 minutes (0.0% of MT) HEART RATE STATISTICS (BPM) Mean: 66.1; Min: 50.0; Max: 102.0 Data Definitions *Monitoring time (MT): Estimated total sleep time calculated as total recording time minus periods of artifact and time the patient was determined to be awake as determined by actigraphy, body position sensor, and/or respiratory pattern by body technician/painter or interpreting provider. Movement time greater than 15 seconds and upright time are automatically excluded from monitoring time. Upright angle is >53.13 degrees, unless manually adjusted based on history of patient (recliner, head of bed elevation, etc). All respiratory parameters are calculated using MT. *Total Recording Time (TRT): Total time from when the recorder was turned on to when the recorder was turned off, in minutes. * Excluded Data: Epochs marked as Invalid Data will be excluded from the report calculations. * Movement Time: Epochs determined to be Movement Time (greater than 15 seconds) are estimated as wake and are excluded from the LESLIE calculation * Respiratory Event Index (LESLIE): Total number of respiratory events x60 divided by monitoring time. LESLIE is a surrogate for Apnea Hypopnea Index (AHI). *Oxygen Desaturation Index (BRIAN): Total number of desaturation events x60 divided by monitoring time Position changes when at least 5 seconds of continuous position is found. The minimum upright position is at 53.13 angle. Movement is detected when the activity signal exceeds a threshold of 0.2 for a minimum of 1 second(s). Apneas are scored where there is a 90% drop in the Flow signal between 10 and 120 seconds. Hypopneas are scored where there is a 30% drop in the Flow signal between 10 and 120 seconds followed by either a drop in saturation of at least 3%, or an arousal. A tachycardia is added when the heart rate exceeds 90bpm for at least 30 seconds. Bradycardia is scored when the heart rate falls below 40bpm for at least 30 seconds. Limb movements are detected when EMG amplitude is above 5 times background activity for at least 0.5 seconds, but no more than 10 seconds. PLMs are detected when at least 4 limb movements occur within a minimum interval of 5 seconds and a maximum interval 90 seconds. An ECG artifact filter is applied to the leg EMG signals. LMs from all channels are combined into one PLM score. LMs are not scored if they start 0.5 seconds before an apnea, hypopnea or a RERA, or 0.5 seconds following the event. LMs are not scored if they start during movement. LMs are not scored if they start during periods of wake. Desaturations are marked when the SpO2 values drop by at least 3% for a minimum duration of 3 seconds with a plateau of no more than 45 seconds. /mercedes/ VICTORIA FOX MD ATTENDING Signed: 02/08/2025 23:33 VICTORIA FOX [facility]
--- OUTSIDE RECORDS SUMMARY | 2025-02-09 08:09 | XMS_ITS | Encounter Summary ---
Author Organization [facility] Address [address] [place] [address] Care Team Providers Care Electrocardiograph Operator Name Role Phone Unavailable Primary Care Provider Unavailabl e Encounter Details Date Type Department Care Team (Late st Contact Info) Description 09/08/2020 Lab Requisition EM Lab DOC: Raudel Rodriguez [address] [place] [phone] Michele Hwang PA-C [address] [place] [address] Encounter for laboratory testing for COVID-19 virus [...] (COVID-19), Qual (09/08/2020 3:27 PM EDT) Pathologist [facility] SARS CoV 2 RNA, Qual NOT DETECTED NOT DETECTED 09/10/2020 5:00 AM EDT [facility] Comment: [...] providers and patients using the following websites: https://www.Harbour [employer].Diligent [employer]/home/Covid-19/HCP/QuestLDTP/ fact-sheet https://www.Tribe Studios/home/Covid-19/Patients/QuestLDTP/ fact-sheet.html This test has been authorized by the FDA under an Emergency Use Authorization (EUA) for use by authorized laboratories. Due to the current public health emergency, [employer] is receiving a high volume of samples [...] about COVID-19 can be found at the [employer] website: www.Zoom [employer]/Covid19. Microbiology Nasopharyngeal swab / Unknown 09/08/2020 3:27 PM EDT 09/08/2020 3:27 PM EDT [facility] - 09/10/2020 5:00 AM EDT Performing Organization Information: ?Site ID: [id number] ?Name: [employer] ?Address: [address] [place] [address],[facility] [place] [address] ?Director: JAMIA CANNON MD Performed at [facility] License number [id number] Michele Hwang PA-C BODY FLUIDS AND S TOOLS ORDERABLES Performing Organization Address City/State/[facility] Co de Phone Number [facility] documented in this encounter Visit Diagnoses Diagnosis Encounter for laboratory testing for COVID-19 virus documented in this encounter
--- OUTSIDE RECORDS SUMMARY | 2025-02-09 08:09 | XMS_ITS | Encounter Summary ---
Author Organization [facility] Address [address] [place] [address] Care Team Providers Care Motor Vehicle Assembly Supervisor Name Role Phone Unavailable Primary Care Provider Unavailabl e Encounter Details Date Type Department Care Team (Late st Contact Info) Description 09/22/2020 Lab Requisition [facility] Testing [address] [phone] Michele Hwang PA-C [address] [place] [phone] Encounter for laboratory testing for COVID-19 virus [...] DETECTED NOT DETECTED 09/24/2020 7:00 PM EST [facility] Comment: A Not Detected (negative) [...] providers and patients using the following websites: https://www.[employer]/home/Covid-19/HCP/QuestLDTP/ fact-sheet https://www.youmag/home/Covid-19/Patients/QuestLDTP/ fact-sheet.html This test has been authorized by the FDA under an Emergency Use Authorization (EUA) for use by authorized laboratories. Due to the current public health emergency, [employer] is receiving a high volume of samples [...] about COVID-19 can be found at the [employer] website: www.Sig[employer]Cloud/Covid19. Microbiology Nasopharyngeal swab / Unknown 09/22/2020 3:25 PM EST 09/22/2020 3:25 PM EST [facility] - 09/24/2020 7:00 PM EST Performing Organization Information: ?Site ID: [id number] ?Name: [employer] ?Address: [address] [place] [address],[facility] [place] [address] ?Director: JAMIA CANNON MD [facility]formed at [facility] License number [id number] Michele Hwang PA-C BODY FLUIDS AND S TOOLS ORDERABLES Performing Organization Address City/State/[facility] Co de Phone Number [facility] documented in this encounter Visit Diagnoses Diagnosis Encounter for laboratory testing for COVID-19 virus documented in this encounter
--- OUTSIDE RECORDS SUMMARY | 2025-02-09 08:09 | XMS_ITS ---
Author Organization [facility] Address [address] [phone] Care Team Providers Care Media Arts Professor Name Role Phone Nena Ortiz Primary Care Provider REASON FOR VISIT 3 week f/u Encounters Encounter Location Date Provider Diagnosis [facility] [address] [facility] [address] [place] [address] 01/11/2025 Nena Ortiz Plan Of Treatment No Information Progress Notes * Feliciano ALLENsDOB:1990 (34 yo M)Acc No.[id number]:01/11/2025 Progress Notes Patient:?Thuan ALLEN Provider:?Nena Ortiz MD :1990???Age:34 Y???Sex:Male Paxton e:01/11/2025 Address:[facility] Donovan Solo [facility] Subjective: * Chief Complaints: * ???1. 3 week f/u. * Medical History:? Objective: * Vitals:? Assessment: Plan: * Treatment: * * Electronic signature of Tk Ortiz MD on 02/09/2025 at 08:09 AM EDT Sign off status: Pending * Provider:?Nena Ortiz MD Date:?12/19 Generated for Cassyi tamika/Barbra/eTransmitting on:?02/09/2025 08:09 AM EDT
--- OUTSIDE RECORDS SUMMARY | 2025-02-09 08:09 | XMS_ITS | Encounter Summary ---
Author Organization [facility] Address [address] [place] [address] Care Team Providers Care Junior Staff Accountant Name Role Phone Unavailable Primary Care Provider Unavailabl e Encounter Details Date Type Department Care Team (Late st Contact Info) Description 06/16/2020 Lab Requisition [facility] Testing [address] [phone] Michele Hwang PA-C [address] [place] [address] Encounter for laboratory testing for COVID-19 virus [...] DETECTED NOT DETECTED 06/17/2020 3:00 PM EDT [facility] Comment: [...] providers and patients using the following websites: https://www.[employer]Brand.[facility]/home/Covid-19/HCP/QuestLDTP/ fact-sheet https://www.J[employer] Enterprises/home/Covid19/Patients/QuestLDTP/ fact-sheet.html This test has been authorized by the FDA under an Emergency Use Authorization (EUA) for use by authorized laboratories. Due to the current public health emergency, [employer] is receiving a high volume of samples [...] about COVID-19 can be found at the [employer] website: www.[employer]inker Square.[facility]/Covid19. Microbiology Nasopharyngeal swab / Unknown 06/16/2020 1:24 PM EDT 06/16/2020 1:24 PM EDT [facility] - 06/17/2020 3:00 PM EDT Performing Organization Information: ?Site ID: [id number] ?Name: [employer] ?Address: [address] [place] [address],[place] [address] ?Director: JAMIA CANNON MD [facility]formed at [facility] License number [id number] Michele Hwang PA-C BODY FLUIDS AND S TOOLS ORDERABLES Performing Organization Address City/State/[place] Co de Phone Number [facility] documented in this encounter Visit Diagnoses Diagnosis Encounter for laboratory testing for COVID-19 virus documented in this encounter
--- OUTSIDE RECORDS SUMMARY | 2025-02-09 08:09 | XMS_ITS | Encounter Summary ---
Author Organization [facility] Address [address] [place] [address] Care Team Providers Care Glass Enamel Mixer Name Role Phone Unavailable Primary Care Provider Unavailabl e Encounter Details Date Type Department Care Team (Late st Contact Info) Description 07/28/2020 Lab Requisition [facility] Testing [address] [phone] Michele Hwang PA-C [address] [place] [address] Encounter for laboratory testing for COVID-19 virus [...] DETECTED NOT DETECTED 08/01/2020 6:00 PM EDT [facility] Comment: A Not Detected (negative) test result [...] providers and patients using the following websites: https://www.[employer].Pocket Gems/home/Covid-19/HCP/QuestLDTP/ fact-sheet https://www.Vast/home/Covid-19/Patients/QuestLDTP/ fact-sheet.html This test has been authorized by the FDA under an Emergency Use Authorization (EUA) for use by authorized laboratories. Due to the current public health emergency, [employer] is receiving a high volume of samples [...] about COVID-19 can be found at the [employer] website: www.[employer].Pocket Gems/Covid19. Microbiology Nasopharyngeal swab / Unknown 07/28/2020 3:29 PM EDT 07/28/2020 3:29 PM EDT Narrative [facility] - 08/01/2020 6:00 PM EDT Performing Organization Information: ?Site ID: [id number] ?Name: [email or web address] ?Address: [address] [place] [address],[address] [place] [id number] ?Director: JAMIA CANNON MD [facility]formed at [facility] License number [id number] Michele Hwang PA-C BODY FLUIDS AND S TOOLS ORDERABLES Performing Organization Address City/State/[facility] Co de Phone Number [facility] documented in this encounter Visit Diagnoses Diagnosis Encounter for laboratory testing for COVID-19 virus documented in this encounter
--- OUTSIDE RECORDS SUMMARY | 2025-02-09 08:09 | XMS_ITS | Data Portability ---
Author Organization ZOHREH Perez s, [address] Address [address] [place] [address] Care Team Providers Care Flow Machine Operator Name Role Phone [facility] Primary Care Provider Assessment No assessment recorded. Plan of Treatment Reminders Order Date Submit Date Provider Last Modified By Organization Details Last Modified Time Details Appointments None recorded. Lab culture, respiratory 2022 023 [place] [facility], [address] [place] [address], [place], [address], 3 16:06:43 rapid flu (A+B) 2022 023 [place] [address], [address] [place] [address], [address], 3 16:46:11 rapid SARS CoV 2 Ag, QL IA, respiratory specimen 2022 023 [place] [address] _[facility], [address] [place] [address], [address], 3 16:46:11 rapid strep group A, throat 2022 023 [place] [address], [address] [place] [address], [address], 3 16:46:10 Referral None recorded. Procedures None recorded. Surgeries None recorded. Imaging None recorded. Medication Orders penicillin V potassium 500 mg tablet 2022 023 [id number], [address], [place], [address], 16:46:13 Patient TargetsNo targets recorded. Patient Instructions Encounter Date Encounter Id Patient Instructions Last Modified By Organization Details Last Modified Time 11/24/2022 [id number] sore throat: car e instructions [email or web address] Not [...] REPORT Not Available [facility] ([facility]) [address] [facility] [address], [place], [address], 11/27/2022 10:06:50 11/24/19 23 11/27/2022 UPPER RESPI RATOR Y CULTU RE result 1 COMMEN T Routi ne respi rator y annamaria Not Available [facility] ([facility]) [address] [facility] [address], [place], [address], 11/27/2022 10:06:50 11/24/19 23 11/25/2022 PLEAS E [...] ied. Not Available [facility] ([facility]) [address] [facility], [place], [address], 11/26/2022 16:06:44 11/24/19 23 11/24/2022 rapid SARS CoV 2 Ag, QL IA, respi rator y speci men Unknown Analyte Normal =Negat vaughn Not Available [address] [place] [address], [place], [address], 11/24/2022 16:14:55 11/24/19 23 11/24/2022 rapid SARS CoV 2 Ag, QL IA, respi rator y speci men Unknown Analyte negati ve Not Available [address] [place] [address], [place], [address], 11/24/2022 16:14:55 11/24/19 23 11/24/2022 rapid flu (A+B) Unknown Analyte Normal = Negati ve Not Available [address] [place] [address], [place], [address], 11/24/2022 16:14:48 11/24/19 23 11/24/2022 rapid flu (A+B) Unknown Analyte negati ve Not Available [address] [place] [address], [place], [address], 11/24/2022 16:14:48 11/24/19 23 11/24/2022 rapid flu (A+B) Unknown Analyte Normal = Negati ve Not Available [address] [place] [address], [place], [address], 11/24/2022 16:14:48 11/24/19 23 11/24/2022 rapid flu (A+B) Unknown Analyte negati ve Not Available [address] [place] [address], [place], [address], 11/24/2022 16:14:48 11/24/19 23 11/24/2022 rapid strep group A, throa t Unknown Analyte Normal = Negati ve Not Available [address] [place] [address], [place], [address], 11/24/2022 16:15:00 11/24/19 23 11/24/2022 rapid strep group A, throa t Unknown Analyte negati ve Not Available [address] [address] [place] [address], [place], [address], 11/24/2022 16:15:00 Result Notes None recorded. Problems Name Problem SNOMED Code Status Onset Date Resolution Date Notes Provider Name and Address Organization Details Recorded Time Gastroesophage al reflux disease 732411180 Active 2022 KENNEY montoya PA - [facility] 3 16:12:05 Migraine 51643598 Active 2022 KENNEY montoya PA - [facility] 3 16:12:17 Chronic back pain 240156434 Active 2022 K[facility]NEY montoya [facility] - [facility] [...] Updated DateTime 3 180.34 cm 37.1 kg/m2 482199. 57 g 97.2 [degF] 18 /min 78 /min 98 % 98 % 142 mm[Hg] 79 mm[Hg] KENNEY ANGULO [facility] 16:14:38 Social History Question Answer Notes LastModified by [employer] Details LastModified Time Tobacco Smoking Status Never Smoker KENNEY montoya PA [facility] 11/24/2022 16:12:54 What Is Your Level [...] SNOMED-CT Code Diagnosis ICD10 Code Diagnosis Note [id number] [address] [address] [phone] 05/01/2022 17:21:49 05/01/2022 17:50:[id number] [address] [address] 05/03/2020 09:55:42 05/03/2020 11:30:41 [id number] ZOHREH MONTIEL [facility] [address] [place] [address] 11/24/2022 15:59:16 11/24/2022 16:57:03 Acute upper respiratory infection 12361948 J06.9 Sore throat 477944856 J0 2.9 Known strep exposure. Rapid strep [...] Member ID Guarantor Name 11/24/2022 [facility] Thuan Nguyen [id number] Thuan Nguyen Notes Date Note Type Note [...] paediatricians office as well. BLAYNE Wilcox, ZOHREH [facility] [place] [place], [address], PA - [facility] 11/24/2022 16:48:47
--- OUTSIDE RECORDS SUMMARY | 2025-02-09 08:09 | XMS_ITS | Encounter Summary ---
Author Name [facility] [place] [facility] [place] Address [address] [place] [address] Support Name Relationship Address Phone TIFFANY LEIGHTON Next of [place] [address] [address] LEIGHTON ALLEN Emergency Contact [address] [place] [address] Care Team Providers Care Automotive Service Technician Name Role Phone CORINNA SEVILLA Primary Care [...] [facility] DEPT [facility] Aug 17, 2020 [id number] ALLEN,CAR LOS PATIENT BCBS [place] (BLUE CARD) PREFERRED PROVIDER ORGANIZAT ION (PPO) [facility] OF [facility] DEPT [facility] Aug 17, 2020 [id number] ALLEN,CAR LOS PATIENT CAREMARK PRESCRIPT ION [facility] Aug 17, 2020 [id number] [phone] ALLEN,CAR LOS PATIENT CAREMARK PRESCRIPT ION [facility] Aug 17, 2020 [id number] [phone] ALLEN,CAR LOS PATIENT Selected Encounter This [...] Primary/Secondary Diagnosis Diagnosis Name Provider Source Feb 04, 2025 02:22 PM PRIMARY Snoring CALEB MCPHERSON [facility] Plan of Treatment: Future Appointments (+ 6 months) and Future Tests (+/- 45 days) The Plan of Treatment section includes future care activities for the patient from all [place] [facility] This section includes future appointments and future orders which are active, pending or scheduled. Future Appointments This section includes appointments that were scheduled to occur 6 months from the date of the Encounter, up to a maximum of 20 appointments. The data comes from all [facility]. Appointment Date/Time Appointment Type Appointme nt Facility Name Jan 20, 2025 08:30 AM AMBULATORY - PSYCHIATRY [facility] Mar 10, 2025 08:30 AM AMBULATORY - PSYCHIATRY [facility] April 12, 2025 09:30 AM AMBULATORY - MEDICINE [place] [facility] Apr 26, 2025 03:00 PM [facility] Active, Pending, and Scheduled Orders This section includes a listing of several types of active, pending, and scheduled orders, including clinic medications orders, diagnostic test orders, procedure orders and consult orders; where the start date of the order is 45 days before the date of the Encounter or 45 days after the date of theEncounter. The data comes from all [facility]. Test Date/Time Test Type Test Details Facility Name Dec 02, 2024 09:37 AM Consult Order [facility] Cons Accounts Receivable Clerk's Choice [place] [facility] Social History: Smoking Status (Most current) [...] Date/Time Current Smoking Status Comment Facil juanis Nov 20, 2022 01:00 PM VA-TOBACCO NEVER USED [place] Tobacco Use History This section includes a history of the smoking, or tobacco-related health factors, that were collected on or before the date of the Encounter. The data comes from the [place] facility where the Encounter took place. Date/Time Smoking Status/Tobacco Use Comment Megan mcconnell Nov 26, 2021 11:30 AM [place]-TOBACCO NEVER USED [place] Encounter Notes: All associated encounter notes This section contains the clinical notes associated to the Encounter. Date/Time Encounter Note(s) Provider Source Jan 13, 2025 08:30 AM SLEEP MEDICINE CON SULT: LOCAL TITLE: SLEEP STUDY/CONSULT REPORT STANDARD TITLE: SLEEP MEDICINE CONSULT DATE OF NOTE: JAN 13, 2025@08:30 ENTRY DATE: JAN 13, 2025@12:36:47 AUTHOR: CALEB MCPHERSON EXP COSIGNER: URGENCY: STATUS: COMPLETED SLEEP STUDY/CONSULT REPORT Has ADDENDA Service Location [id number] Device Information DeviceName: [id number] DeviceSerialNumber: [id number] Diagnosis: R06.83 - Snoring Education was provided [...] 30 min Procedures 1 Individual (1) Education /KHARI Allred CARAMEL CUTTER MACHINE Signed: 01/13/2025 12:36 02/02/2025 ADDENDUM STATUS: COMPLETED HSAT kit returned with satisfactory data recorded. Scoring completed. IFC for interpretation entered. /KHARI Allred CARAMEL CUTTER MACHINE Signed: 02/02/2025 13:57 CALEB MCPHERSON
--- OUTSIDE RECORDS SUMMARY | 2025-02-09 08:09 | XMS_ITS | Clinical Summary ---
Author Organization [facility] Address [address] [place] [address] Care Team Providers Care Snuff Maker Name Role Phone Unavailable Primary Care Provider Unavailabl e Encounters Date Type Department Care Team Description 12/24/2024 Orders Only [facility] Urologic Surgery [address] [place] [address] Nena Ortiz MD 12/24/2024 Transcribe Orders [facility] Urologic Surgery [address] [address] Nena Ortiz MD Flank [...]
--- OUTSIDE RECORDS SUMMARY | 2025-02-09 08:09 | XMS_ITS | Encounter Summary ---
Author Organization [facility] Address [address] [place] [address] Care Team Providers Care Sales Project Manager Name Role Phone Unavailable Primary Care Provider Unavailabl e Encounter Details Date Type Department Care Team (Late st Contact Info) Description 08/18/2020 Lab Requisition [facility] Testing [address] [phone] Michele Hwang PA-C [address] [place] [address] Encounter for laboratory testing for COVID-19 virus [...] DETECTED NOT DETECTED 08/20/2020 12:00 AM EDT [facility] Comment: A Not [...] providers and patients using the following websites: https://www.[employer].Viridis Learning/home/Covid-19/HCP/QuestLDTP/ fact-sheet https://www.R[employer]/home/Covid-19/Patients/QuestLDTP/ fact-sheet.html This test has been authorized by the FDA under an Emergency Use Authorization (EUA) for use by authorized laboratories. Due to the current public health emergency, [employer] is receiving a high volume of samples [...] about COVID-19 can be found at the [employer] website: www.[employer].Viridis Learning/Covid19. Microbiology Nasopharyngeal swab / Unknown 08/18/2020 3:51 PM EDT 08/18/2020 3:51 PM EDT [facility] - 08/20/2020 12:00 AM EDT Performing Organization Information: ?Site ID: [id number] ?Name: [employer] ?Address: [address] [place] [address],[address] [place] [id number] ?Director: JAMIA CANNON MD [facility] [id number] Michele Hwang PA-C BODY FLUIDS AND S TOOLS ORDERABLES Performing Organization Address City/State/[facility] Co de Phone Number [facility] documented in this encounter Visit Diagnoses Diagnosis Encounter for laboratory testing for COVID-19 virus documented in this encounter
--- OUTSIDE RECORDS SUMMARY | 2025-02-09 08:09 | XMS_ITS | Continuity of Care Document ---
Author Organization [facility] Shayan Sánchez [facility]ONE [place] Address [address] [place] [address] Care Team Providers Care Superintendent Board Mill Name Role Phone CITLALI KENNEY Primary Care Provider CITLALI KENNEY Referring Provider [phone] SABA KWOK Machine Deburrer Assessment Encounter Date Assessment Date Assessment LastModified [...] By Organization Details Last Modified Time 01/20/2025 [id number] Weightbearing x-rays of the left foot and ankle were obtained on 10/28/2024 which is negative for acute fracture. No evidence of periosteal stress reaction. No widening of the Lisfranc complex. [email or web address] Not available 01/20/2025 08:22:38 Reason for Referral None Reported. Problems Name Problem SNOMED Code Status Onset Date Resolution Date Notes Provider Name and Address Organization Details Recorded Time Strain of foot 40664180596 Active 025 Almita Thompson MD [address], [place], [address] , [place] [facility] [place], P 10:20:55 Problem Notes None recorded. Medical [...] Updated DateTime 01/20/2025 180.34 cm 39.1 kg/m2 396599.[address] [facility] [place] 01/20/2025 09:10:53 Social History None recorded. Functional Status None recorded. Mental Status None recorded. Family History Nothing Reported. Medical History No medical history recorded. Past Encounters Encounter ID Performer Location Encounter Start Date Encounter Closed Date Diagnosis/Indication Diagnosis SNOMED-CT Code Diagnosis ICD10 Code Diagnosis Note [id number] Almita Thompson MD JAMES [place] [address] [place] [address] 12/23/2024 09:48:32 12/23/2024 10:25:26 Strain of foot 3475608655 9 S96.912D [id number] MD BROOKLYN Wallis [place] [address] [place] [address] 01/20/2025 08:59:53 01/20/2025 09:37:45 Strain of foot 6174375237 9 S96.912D Health Concerns Section Related Observation LastModified by Organization Detai ls LastModified Time None Recorded Concern Status LastModified by Organization Details LastModified Time None Recorded Payers Encounter Date Sequence Insurance Name Policy Number Policy Gloria Covered Member ID Gloria Member ID Guarantor Name 01/20/2025 MANATI [employer] [facility] [id number] Other Thuan Nguyen Notes Date [...] restraints, or full duty work. From 12/23/24 ([facility]): for follow-up evaluation regarding his left [...] no medical history. 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 He drinks about 4 alcoholic drinks per week. Almita Thompsno MD [address], [place], [address], [place] [facility] [place] 01/20/2025 10:49:04
== END 2025-02-09 08:25 | disposition home or self-care (01) ==
PROVIDERS: PCP Internal Medicine; Visit Provider Physician Assistant
DX: J02.0 Streptococcal pharyngitis (principal)

== ENCOUNTER → 2025-02-09 08:01 | Outpatient (BNVA) | payer BC, SELFPAY | PROVIDERS: PCP Internal Medicine; Visit Provider Physician Assistant ==

== ENCOUNTER 2025-03-03 11:18 | Outpatient (AMB) | payer BC, SELFPAY ==
--- NOTE | 2025-03-03 11:19 | MHC.PC.OV ---
Intake Visit Reasons: Cold Symptoms Allergies No Known Allergies Allergy (Verified 03/03/25 11:19) Medication List - Last Reconciled 03/03/25 by Rosamaria Sam MD acetaminophen 1,000 mg (2 x 500 mg) PO Q6H PRN albuterol sulfate 90 mcg/actuation 2 puffs inhalation Q6H PRN amitriptyline 10 - 20 mg (1 - 2 x 10 mg) PO BEDTIME 30 days azithromycin (Zithromax) For 250 mg dose pack: take 500 mg today (day 1), then 250 mg for 4 days (days 2-5) PO ibuprofen 800 mg PO Q8H PRN penicillin V potassium 500 mg PO BID 10 days sertraline 25 mg PO DAILY ubrogepant (Ubrelvy) 50 - 100 mg (0.5 - 1 x 100 mg) PO ONCE PRN 30 days MDD 2 tabs Tobacco use date assessed: 12/10/24 Dental Screening Dental Screen Date: 12/07/24 HPI Cold Symptoms HPI Details was rx 2 weeks ago treated for strewep pharygitis with Pen V- [facility] Medical History (Updated 02/09/25 @ 08:24 by Nichelle Simms PA-C) LFT elevation Asthma Morbid obesity Ankle sprain Vasectomy evaluation Anxiety about health Laceration of left thumb Headache Chronic migraine without aura COVID-19 virus infection Viral infection Ear pain, right Otitis media, right Daytime sleepiness Pharyngitis Otitis media Upper respiratory tract infection SOB (shortness of breath) Left carotid bruit Chest pain Puncture wound of finger of left hand IBS (irritable bowel syndrome) Lumbar disc disease Plantar fasciitis, bilateral Sciatic leg pain Tinnitus PTSD (post-traumatic stress disorder) Generalized anxiety disorder Obesity (BMI 30-39.9) Surgical History H/O vasectomy Family History Mother No problems noted. Father No problems noted. Daughter No problems noted. Son No problems noted. Daughter No problems noted. Brother No problems noted. Sister No problems noted. Sister No problems noted. Other Lupus Mental health disorder Social History (Updated 12/22/24 @ 09:44 by Ciera Oglesby CMA) Housing: House Alcohol intake: current Alcohol intake frequency: a few times a week Comment: 3x a week 2 drinks Patient Tobacco Use Status: Never used Tobacco Tobacco use type: Cigarette e-Cigarette/Vaping Use: Never Used Second Hand Smoke Exposure: No service: Yes Current occupational status: employed Cognitive needs: No Hearing needs: No Vision needs: Yes Questionnaire Thrive Questionnaire Date Thrive assessed: 12/07/24 ARTURO-7 AMB Questionnaire ARTURO-7 Date ARTURO - 7 assessed: 12/07/24 Source: Developed by Drs. Harley Maloney, Ros Tadeo, Irwin Recinos and colleagues, with an educational sena from [employer]. Physical exam (Primary Care) Tobacco/Smoking Status: Tobacco use Status Tobacco use date assessed 12/10/24 03/03/25 11:20 Patient Tobacco Use Status Never used Tobacco 03/03/25 11:20 Tobacco use type Cigarette 03/03/25 11:20 e-Cigarette/Vaping Use Never Used 03/03/25 11:20 Thrive Assessment: Date of Thrive Assessment Date Thrive assessed 12/07/24 03/03/25 11:20 Telehealth Telehealth Telehealth Platform: Telephone Location of provider rendering services: practice address Location of patient: address on file Patient Identification confirmed using: Name, : Yes Telehealth method: voice only Patient verbally consented to treatment: Yes Patient verbally consented to billing insurance company: Yes Patient informed of any privacy concerns related to visit: Yes Minutes spent on Phone/Video with Pt.: 15 Coding Level of Care Code Tele Est Pt Level 3 (08075) Diagnoses Strep pharyngitis J02.0 Assessment & Plan Assessment & Plan (1) Strep pharyngitis: Code(s): J02.0 - Streptococcal pharyngitis Category: Medical Plan History of Present Illness The patient is a 34-year-old male presenting with a recurrent sore throat. Initially, the patient was evaluated for a sore throat and received treatment with penicillin after being diagnosed with streptococcal pharyngitis in Urgent Care. Despite adherence to the 10-day penicillin regimen, symptoms returned, prompting him to self-medicate with amoxicillin, which was available at home, although both antibiotics are in the same class and offer no distinct advantage. The patient reported initial symptom improvement, but the sore throat persisted. He was subsequently advised to start Zithromax. The patient's history is significant for post-traumatic stress disorder with anxiety, GERD, obstructive sleep apnea intolerant of CPAP, impaired glucose tolerance, migraines, asthma, and hepatic steatosis. Review of Systems - Ears, Nose, Throat: Reports sore throat. - Gastrointestinal: Denies any nausea or vomiting. - Respiratory: Denies shortness of breath or wheezing. - Neurological: Denies headaches at present. Plan The treatment plan for the patient's recurrent sore throat involves switching to Azithromycin given the prior failure of penicillin and amoxicillin. Azithromycin is a suitable choice due to its different mechanism of action and short dosing schedule. The patient was informed about the regimen and potential side effects including gastrointestinal issues, which are manageable with supportive care. Close follow-up is vital to monitor progress and ensure the resolution of symptoms. Patient was informed and verbally consented to the use of an ambient scribe for clinic note documentation during this visit. Discussion Notes During the discussion, I explained the recurrent nature of the patient's sore throat and the inadequacy of the previous penicillin and amoxicillin treatment, given their belonging to the same antibiotic class. I proposed Azithromycin (Zithromax) as an alternative due to its extended duration of action and demonstrated effectiveness against resistant bacterial strains. The patient was informed of the common side effects, primarily gastrointestinal, and advised on appropriate symptom management. The importance of adherence to the new treatment regimen was emphasized. I provided guidance on return precautions, including the need to seek care if symptoms do not improve or if severe complications arise. Patient Instructions - Take Azithromycin (Zithromax) as prescribed: 2 tablets on the first day, then 1 tablet daily for the next 4 days. - Contact the clinic if symptoms do not improve within a few days of starting the new antibiotic. - Be aware of possible side effects like stomach upset; you can use myna-kzs-mbomdhw medication for treatment if needed. - Drink plenty of fluids and rest. - Follow up if new symptoms develop or existing symptoms worsen. Medications: New azithromycin (Zithromax) For 250 mg dose pack: take 500 mg today (day 1), then 250 mg for 4 days (days 2-5) PO 6 tabs 0RF
--- OUTSIDE RECORDS SUMMARY | 2025-03-03 13:57 | XMS_ITS | Encounter Summary ---
Author Name [facility] [place] Organization [place] Address [address] [place] [address] Support Name Relationship Address Phone TIFFANY LEIGHTON Next of Kin [address] [place] [address] LEIGHTON ALLEN Emergency Contact [address] [facility] [place] [address] Care Team Providers Care Nurse Care Manager Name Role Phone CORINNA SEVILLA Primary Care [...] CT DEPT OF COR Aug 17, 2020 [id number] [id number] ALLEN,CAR LOS PATIENT BCBS YOUSIF (BLUE CARD) PREFERRED PROVIDER ORGANIZAT ION (PPO) ST OF [facility] DEPT OF COR Aug 17, 2020 [id number] ALLEN,CAR LOS PATIENT CAREMARK PRESCRIPT ION [facility] Aug 17, 2020 [id number] ALLEN,CAR LOS PATIENT CAR[place]ARK PRESCRIPT ION [facility] Aug 17, 2020 [id number] [phone] ALLEN,CAR LOS PATIENT Selected Encounter This [...] PRIMARY Post-traumatic stress disorder, chronic MIGUELITO GABRIEL [place] Plan of Treatment: Future Appointments (+ 6 months) and Future Tests (+/- 45 days) The Plan of Treatment section includes future care activities for the patient from all [place] [facility]. This section includes future appointments and [...] 10, 2025 08:30 AM AMBULATORY - PSYCHIATRY [facility] April 12, 2025 09:30 AM AM[place]UL[place] [facility] Apr 26, 2025 03:00 PM [facility] Social History: Smoking Status (Most current) and [...] 20, 2022 01:00 PM [place]-TOBACCO NEVER USED [place] Tobacco Use History This section includes a history of the smoking, or tobacco-related health factors, that were collected on or before the date of the Encounter. The data comes from the [place] facility where the Encounter took place. Date/Time Smoking Status/Tobacco Use Comment Megan mcconnell Nov 26, 2021 11:30 AM [place]-TOBACCO NEVER USED [place] Encounter Notes: All associated encounter notes This section contains the clinical notes associated to the Encounter. Date/Time Encounter Note(s) Provider Source Jan 20, 2025 08:34 AM TELEHEALTH NOTE: LOCAL TITLE: [place] VIDEO CONNECT PSYCHIATRIST NOTE STANDARD TITLE: TELEHEALTH NOTE DATE OF NOTE: JAN 20, 2025@08:34 ENTRY DATE: JAN 20, 2025@08:35:04 AUTHOR: MIGUELITO GABRIEL COSIGNER: URGENCY: STATUS: COMPLETED [place] Video Connect (VVC) Standard Documentation VVC Clinician Resources Only: E911 (Emergency Call Relay Center): [phone] National Veterans Crisis Line - 988 then press #1. [place] Suicide Coordinator [phone], Ext. [phone]; Back-up Ext. [phone] [place] Police, IMTIAZSandra, Darryl [phone] Introduction: Visit is being conducted by [place] [employer]. [place] identified with 2 identifiers: [X] Full Name [X] Date of [ ] [place] ID Card Emergency Plan: confirmed and/or provided the following information in case of emergency or technology failure. PATIENT PHONE - PHONE NUMBER [CELLULAR] - Is patient phone number correct, if not, enter below: 's phone number: DENISSE ALLEN [address] [place] [address], [address] 's present location and address for appointment: [facility] [place], [place] 's emergency contact name and phone number: chart reported that location is private and safe: Yes Informed Consent: [place] informed of the risks and benefits of Telehealth video care. [place] has the right to refuse video services. If refuses video visit, a [id number]-[id number] visit will be scheduled. 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 Chronic Post-Traumatic Stress Disorder ([facility] [id number]) 4. Major depressive disorder 5. Comanagement 6. [...] denied suicidal and violent ideation, but the [facility] Crisis Line information and number were reviewed w patient as a precaution over the phone. The patient also understands to call 911 or to go to ER in the event of an emergency. Again, another discussion re psychotherapy (to help w coping w stressors) -- pt now has [facility] therapy consult pending for Giovani Garcia [address] [place] [address] Phone/ (call this number) pt will call to set up appt Also has-- Ariane for couples therapy-- again, pt feels this helps when can set up. I again reviewed evidenced based psychotherapies for ptsd w pt. I offered him a therapist within the [place], but the patient declines at this point, [...] By: 01/20/2025 13:58 /mercedes/ CALI GUSTAFSON ADVANCED CLINICAL PROJECT ASSISTANT MIGUELITO GABRIEL
--- OUTSIDE RECORDS SUMMARY | 2025-03-03 13:57 | XMS_ITS | Encounter Summary ---
Author Name [facility] [place] Organization [place] Address [address] [place] [address] Support Name Relationship Address Phone TIFFANY LEIGHTON Next of Kin [address] [place] [address] LEIGHTON ALLEN Emergency Contact [address] [place] [address] Care Team Providers Care Toucher Up Name Role Phone CORINNA SEVILLA Primary Care [...] CT DEPT OF COR Aug 17, 2020 [id number] [phone] ALLEN,CAR LOS PATIENT BCBS YOUSIF (BLUE CARD) PREFERRED PROVIDER ORGANIZAT ION (PPO) ST OF [facility] DEPT OF COR Aug 17, 2020 [id number] [phone] ALLEN,CAR LOS PATIENT CAREMARK PRESCRIPT ION [facility] OF [facility] Aug 17, 2020 [id number] ALLEN,CAR LOS PATIENT CAREMARK PRESCRIPT ION [facility] Aug 17, 2020 [id number] ALLEN,CAR LOS PATIENT Selected Encounter This section includes the information on record at [place] for the Encounter. Date/Time Encounter Type Encounter Description Reason Provider Source April 01, 2024 04:00 PM OFFICE O/P EST HI 40 MIN [facility] - IND ICD-10-CM F43.12 Post-traumatic stress disorder, chronic GABRIELANTHONY Qutea Azalia Katie Encounter Template Text not used by [place] Assessments - Encounter Diagnoses This section includes [...] activities for the patient from all [place] [facility]. This section includes future appointments and future orders which are active, pending or scheduled. Future Appointments This section includes appointments that were scheduled to occur 6 months from the date of the Encounter, up to a maximum of 20 appointments. The data comes from all [place] treatment facilities. Appointment Date/Time Appointment Type Appointme nt Facility Name Apr 26, 2024 09:30 AM AMBULATORY - NONE [place] [facility] [place] [facility] Jun 02, 2024 09:30 AM AMBULATORY - NONE [place] [facility] [place] [place] [facility] Jul 13, 2024 10:00 AM AMBULATORY - NONE [place] [facility] [place] [facility] Jul 14, 2024 09:30 AM AMBULATORY - NONE [place] [facility] [place] [facility] Jul 27, 2024 10:30 AM AMBULATORY - NONE [place] [facility] [place] [facility] Aug 05, 2024 02:00 PM AMBULATORY - PSYCHIATRY [facility] Social History: Smoking Status (Most current) [...] 20, 2022 01:00 PM [place]-TOBACCO NEVER USED [place] Tobacco Use History This section includes a history of the smoking, or tobacco-related health factors, that were collected on or before the date of the Encounter. The data comes from the [place] facility where the Encounter took place. Date/Time Smoking Status/Tobacco Use Comment Megan mcconnell Nov 26, 2021 11:30 AM [place]-TOBACCO NEVER USED [place] Encounter Notes: All associated encounter notes This section contains the clinical notes associated to the Encounter. Date/Time Encounter Note(s) Provider Source April 01, 2024 04:12 PM TELEHEALTH NOTE: LOCAL TITLE: [place] VIDEO CONNECT PSYCHIATRIST NOTE STANDARD TITLE: TELEHEALTH NOTE DATE OF NOTE: APRIL 01, 2024@16:12 ENTRY DATE: APRIL 01, 2024@16:12:16 AUTHOR: MIGUELITO GABRIEL EXP COSIGNER: URGENCY: STATUS: COMPLETED [place] VIDEO CONNECT PSYCHIATRIST NOTE Has ADDENDA [place] Video Connect (VVC) Standard Documentation VVC Clinician Resources Only: E911 (Emergency Call Relay Center): [phone] [facility] ([place], [place]) Crisis Line - 988 then press #1. [facility] Suicide Coordinator [phone], Ext. [phone]; Back-up Ext. [phone] [place] Police, JODI, Darryl [phone] Introduction: Visit is being conducted by [place] [employer]. [place] identified with 2 identifiers: [X] Full Name [X] Date of [ ] [place] ID Card Emergency Plan: confirmed and/or provided the following information in case of emergency or technology failure. PATIENT PHONE - PHONE NUMBER [CELLULAR] - Is patient phone number correct, if not, enter below: [place]'s phone number: DENISSE ALLEN [address] [place] [address], [phone] [place]'s present location and address for appointment: home [place]'s emergency contact name and phone number: chart [place] reported that location is private and safe: Yes Informed Consent: [place] informed of the risks and benefits of Telehealth video care. has the right to refuse video services. If refuses video visit, a bgfv-[id number]-unte visit will be scheduled. 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 Major depressive disorder 5. Comanagement 6. [...] denied suicidal and violent ideation, but the [facility] Crisis Line information and number were reviewed w patient as a precaution over the phone. The patient also understands to call 911 or to go to ER in the event of an emergency. therapist in psych wellness grp -- Layne Webb, but the patient may try to change therapist to Bradley Rogers, using his own insurance. I offered him a therapist within the [place], but the patient declines at this point, [...] By: 04/02/2024 07:21 /mercedes/ Makenzie Mccarthy ADVANCED QUILL SKINNER 04/02/2024 10:52 /es/ CALI GUSTAFSON ADVANCED QUILL SKINNER 04/01/2024 ADDENDUM STATUS: COMPLETED Suicide Screen: C-SSRS Screening [place]-Suicide Severity Rating Scale (C-SSRS Screener) 1. Over [...]
--- OUTSIDE RECORDS SUMMARY | 2025-03-03 13:57 | XMS_ITS ---
Author Organization [facility] Address [address] [address] Care Team Providers Care Steward/Stewardess Smoke Room Name Role Phone Nena Ortiz Primary Care Provider [phone] REASON FOR VISIT Labs Encounters Encounter Location Date Provider Diagnosis [facility] [address] [address] 12/27/2024 Nena Ortiz Plan Of Treatment No Information Progress Notes * Feliciano ALLENsDOB:1990 (34 yo M)Acc No.[id number]:12/27/2024 Patient:?Thuan ALLEN :1990???Age:34 Y???Sex:Male Address:[facility] [place], [address] * true * Date:? Generated for Faizan lundberg/Barbra/eTransmitting on:?03/03/2025 01:57 PM EDT
--- OUTSIDE RECORDS SUMMARY | 2025-03-03 13:57 | XMS_ITS | Encounter Summary ---
Author Name [facility] [place] Organization [place] Address [address] [place] [address] Support Name Relationship Address Phone LEIGHTON ALLEN Next of Kin [address] [place] [address] LEIGHTON ALLEN Emergency Contact [address] [place] [address] Care Team Providers Care Dispatch Supervisor Name Role Phone CORINNA SEVILLA Primary [...] CT DEPT OF COR Aug 17, 2020 [id number] ALLEN,CAR LOS PATIENT BCBS [place] (BLUE CARD) PREFERRED PROVIDER ORGANIZAT ION (PPO) ST OF CT DEPT OF COR Aug 17, 2020 [id number] ALLEN,CAR LOS PATIENT CAREMARK PRESCRIPT ION [facility] Aug 17, 2020 [id number] ALLEN,CAR LOS PATIENT CAREMARK PRESCRIPT ION [facility] Aug 17, 2020 [id number] ALLEN,CAR LOS PATIENT Selected Encounter This section includes the information on record at [place] for the Encounter. Date/Time Encounter Type Encounter Description Reason Pro vider Source March 29, 2024 03:00 PM Outpatient Encounter [facility] Encounter Template Text not used by [place] Plan of Treatment: Future Appointments (+ 6 months) and Future Tests (+/- 45 days) The Plan of Treatment section includes future care activities for the patient from all [place] [facility]. This section includes future appointments and [...] 01, 2024 04:00 PM AMBULATORY - PSYCHIATRY [facility] Apr 26, 2024 09:30 AM AMBULATORY - NONE [place] [facility] [place] [facility] Jun 02, 2024 09:30 AM AMBULATORY - NONE [place] [facility] [place] [facility] Jul 13, 2024 10:00 AM AMBULATORY - NONE [place] [facility] [place] [facility] Jul 14, 2024 09:30 AM AMBULATORY - NONE [place] [facility] [place] [facility] Jul 27, 2024 10:30 AM AMBULATORY - NONE [place] [facility] [place] [facility] Aug 05, 2024 02:00 PM AMBULATORY - PSYCHIATRY [facility] Social History: Smoking Status (Most current) [...] Mayra olivarez Nov 20, 2022 01:00 PM [place]-TOBACCO NEVER USED [place] Tobacco Use History This section includes a history of the smoking, or tobacco-related health factors, that were collected on or before the date of the Encounter. The data comes from the [place] facility where the Encounter took place. Date/Time Smoking Status/Tobacco Use Comment Megan mcconnell Nov 26, 2021 11:30 AM [place]-TOBACCO NEVER USED [place] Encounter Notes: All associated encounter notes This [...] ADDENDA Patient Name: DENISSE ALLEN Patient SSN: [id number] Date and time of Appointment No show [...] STAFF PSYCHIATRIST Signed: 03/29/2024 18:21 MIGUELITO GABRIEL [place]
--- OUTSIDE RECORDS SUMMARY | 2025-03-03 13:57 | XMS_ITS | Clinical Summary ---
Author Organization [facility] Address [address] [place] [address] Care Team Providers Care Design Painter Name Role Phone Rosamaria Sam MD Primary Care Provider [phone] Allergies No known active allergies Medications No [...] age to complete this topic Care Teams Design Painter Relationship Specialty Start Date End Date Flaco, Rosamaria Jerome MD [address] [place] [address] [address] [facility] [place] [address] PCP - General Internal Medicine 07/03/24
--- OUTSIDE RECORDS SUMMARY | 2025-03-03 13:58 | XMS_ITS | Encounter Summary ---
Author Name [facility] [place] Organization [place] Address [address] [place] [address] Support Name Relationship Address Phone TIFFANY LEIGHTON Next of Kin [address] [place] [address] LEIGHTON ALLEN Emergency Contact [address] [place] [address] Care Team Providers Care Centerless Grinder Tender Name Role Phone CORINNA SEVILLA Primary Care [...] CT DEPT OF COR Aug 17, 2020 [id number] [phone] ALLEN,CAR LOS PATIENT BCBS YOUSIF (BLUE CARD) PREFERRED PROVIDER ORGANIZAT ION (PPO) ST OF CT DEPT OF COR Aug 17, 2020 [id number] [phone] ALLEN,CAR LOS PATIENT CAREMARK PRESCRIPT ION [facility] OF [facility] Aug 17, 2020 [id number] [phone] ALLEN,CAR LOS PATIENT CAREMARK PRESCRIPT ION [facility] Aug 17, 2020 [id number] ALLEN,CAR LOS PATIENT Selected Encounter This section includes the information on record at [place] for the Encounter. Date/Time Encounter Type Encounter Description Reason Provider Source Aug 05, 2024 02:00 PM OFFICE O/P EST MOD 30 MIN [facility] - IND ICD-10-CM F43.12 Post-traumatic stress disorder, chronic ANTHONY GABRIEL Katie Encounter Template Text not used by [place] Assessments - Encounter Diagnoses This section includes [...] care activities for the patient from all [place] [facility]. This section includes future appointments and future orders which are active, pending or scheduled. Future Appointments This section includes appointments that were scheduled to occur 6 months from the date of the Encounter, up to a maximum of 20 appointments. The data comes from all [place] treatment facilities. Appointment Date/Time Appointment Type Appointme nt Facility Name Oct 11, 2024 09:00 AM AMBULATORY - PSYCHIATRY [facility] Oct 11, 2024 09:30 AM AMBULATORY - NONE [place] [facility] [place] [facility] Oct 27, 2024 04:00 PM AMBULATORY - NONE [place] [facility] [place] [facility] Nov 02, 2024 09:30 AM AMBULATORY - NONE [place] [facility] [place] [facility] Nov 22, 2024 03:30 PM AMBULATORY - MEDICINE [place] [facility] [place] [facility] Dec 23, 2024 09:00 AM AMBULATORY - MEDICINE [place] [facility] [place] [facility] Dec 23, 2024 09:01 AM AMBULATORY - MEDICINE [place] [facility] [place] [facility] Dec 30, 2024 11:00 AM AMBULATORY - NONE [place] [facility] [facility] Jan 13, 2025 08:30 AM AMBULATORY - MEDICINE [facility] Jan 20, 2025 08:30 AM AMBULATORY - PSYCHIATRY [facility] Active, Pending, and Scheduled Orders This section includes a listing of several types of active, pending, and scheduled orders, including clinic medications orders, diagnostic test orders, procedure orders and consult orders; where the start date of the order is 45 days before the date of the Encounter or 45 days after the date of theEncounter. The data comes from all [place] treatment facilities. Test Date/Time Test Type Test Details Facility Name Jun 25, 2024 04:24 PM Consult Order COMMUNITY CARE-DENTAL GENERAL Cons End User Consultant's Choice [place] [facility] [place] [facility] Social History: Smoking Status (Most current) and Tobacco Use (All prior to encounter date) This section includes the most current, and the historical, smoking and tobacco- related health factors from the [place] facility where the Encounter took place. Current Smoking Status This section includes the most current smoking, or tobacco-related health factor, from the [place] facility where the Encounter took place. Date/Time Current Smoking Status Comment Facil ity Nov 20, 2022 01:00 PM [place]-TOBACCO NEVER USED [place] Tobacco Use History This section includes a history of the smoking, or tobacco-related health factors, that were collected on or before the date of the Encounter. The data comes from the [place] facility where the Encounter took place. Date/Time Smoking Status/Tobacco Use Comment F acility Nov 26, 2021 11:30 AM [place]-TOBACCO NEVER USED [place] Encounter Notes: All associated encounter notes This section contains the clinical notes associated to the Encounter. Date/Time Encounter Note(s) Provider Source Aug 05, 2024 02:04 PM TELEHEALTH NOTE: LOCAL TITLE: [place] VIDEO CONNECT PSYCHIATRIST NOTE STANDARD TITLE: TELEHEALTH NOTE DATE OF NOTE: AUG 05, 2024@14:04 ENTRY DATE: AUG 05, 2024@14:04:13 AUTHOR: MIGUELITO GABRIEL EXP COSIGNER: URGENCY: STATUS: COMPLETED [place] Video Connect (VVC) Standard Documentation VVC Clinician Resources Only: E911 (Emergency Call Relay Center): [phone] National Veterans Crisis Line - 988 then press #1. [facility] Suicide Coordinator [phone], Ext. [phone]; Back-up Ext. [phone] [place] Police, Darryl Z[place] [phone] Introduction: Visit is being conducted by [place] [employer]. [place] identified with 2 identifiers: [X] Full Name [X] Date of [ ] [place] ID Card Emergency Plan: [place] confirmed and/or provided the following information in case of emergency or technology failure. PATIENT PHONE - PHONE NUMBER [CELLULAR] - Is patient phone number correct, if not, enter below: [place]'s phone number: DENISSE ALLEN [address] [place] [address], [address] 's present location and address for appointment: home 's emergency contact name and phone number: chart [place] reported that location is private and safe: Yes Informed Consent: informed of the risks and benefits of Telehealth video care. [place] has the right to refuse video services. If refuses video visit, a [id number]-[id number]-[id number] visit will be scheduled. 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 Denies street drugs Denies medication side effects. No daytime sedation. Reports compliance with Zoloft 25 mg daily. Active problems - Computerized Problem List is the source for the followin. Exposure to potentially hazardous substance 2. Sleep apnea 3. Chronic Post-Traumatic Stress Disorder ([facility] [id number]) 4. Major depressive disorder 5. Comanagement 6. [...] denied suicidal and violent ideation, but the [place] Crisis Line information and number were reviewed [...] By: 08/06/2024 07:54 /mercedes/ Makenzie Mccarthy ADVANCED EARTH SCIENCE LABORATORY TECHNICIAN 08/06/2024 08:52 /mercedes/ CALI GUSTAFSON ADVANCED EARTH SCIENCE LABORATORY TECHNICIAN MIGUELITO GABRIEL
--- OUTSIDE RECORDS SUMMARY | 2025-03-03 13:58 | XMS_ITS | Data Portability ---
Author Organization ZOHREH Perez s, [address] Address [address] [place] [address] Care Team Providers Care Analytics Lead Name Role Phone [facility] Primary Care Provider Assessment No assessment recorded. Plan of Treatment Reminders Order Date Submit Date Provider Last Modified By Organization Details Last Modified Time Details Appointments None recorded. Lab culture, respiratory 2022 023 ALLOUEZ [facility], [address] [place] [address], [place], [address], 3 16:06:43 rapid flu (A+B) 2022 023 [place] [address] [facility], [address] [place] [address], [address], 3 16:46:11 rapid SARS CoV 2 Ag, QL IA, respiratory specimen 2022 [address] [place] [address] [facility], [address] [place] [address], [address], 3 16:46:11 rapid strep group A, throat 2022 [address] [place] [address] [facility], [address] [place] [address], [address], 3 16:46:10 Referral None recorded. Procedures None recorded. Surgeries None recorded. Imaging None recorded. Medication Orders penicillin V potassium 500 mg tablet 2022 023 [facility][id number], [address] [facility], [place], [address], 16:46:13 Patient TargetsNo targets recorded. Patient Instructions Encounter Date Encounter Id Patient Instructions Last Modified By Organization Details Last Modified Time 11/24/2022 [id number] sore throat: car e instructions [email or web address] Not [...] culture FINAL REPORT Not Available [facility] ([facility]) [address] [facility], [place], [address], 11/27/2022 10:06:50 11/24/19 23 11/27/2022 UPPER RESPI RATOR Y CULTU RE result 1 COMMEN T Routi ne respi rator y annamaria Not Available [facility] ([facility]) [address] [facility], [place], [address], 11/27/2022 10:06:50 11/24/19 23 11/25/2022 PLEAS E NOTE please note Commen t The date and/o r time of colle ction was not indic ated on the requi sitio n as requi red by state and andres al law. The date of recei pt of the speci men was used as the colle ction date if not suppl ied. Not Available [facility] ([facility]) [address] [facility], [place], [address], 11/26/2022 16:06:44 11/24/19 23 11/24/2022 rapid SARS CoV 2 Ag, QL IA, respi rator y speci men Unknown Analyte Normal =Negat vaughn Not Available [address] [place] [address], [place], [address], 11/24/2022 16:14:55 11/24/19 23 11/24/2022 rapid SARS CoV 2 Ag, QL IA, respi rator y speci men Unknown Analyte negati ve Not Available [address] [place] [address], [place], [address], 11/24/2022 16:14:55 11/24/19 23 11/24/2022 rapid flu (A+B) Unknown Analyte [place] = Negati ve Not Available [address] [place] [address], [place], [address], 11/24/2022 16:14:48 11/24/19 23 11/24/2022 rapid flu (A+B) Unknown Analyte negati ve Not Available [address] [place] [address], [place], [address], 11/24/2022 16:14:48 11/24/19 23 11/24/2022 rapid flu (A+B) Unknown Analyte [place] = Negati ve Not Available [address] [place] [address], [place], [address], 11/24/2022 16:14:48 11/24/19 23 11/24/2022 rapid flu (A+B) Unknown Analyte negati ve Not Available [address] [place] [address], [place], [address], 11/24/2022 16:14:48 11/24/19 23 11/24/2022 rapid strep group A, throa t Unknown Analyte [place] = Negati ve Not Available [address] [place] [address], [place], [address], 11/24/2022 16:15:00 11/24/19 23 11/24/2022 rapid strep group A, throa t Unknown Analyte negati ve Not Available [address] [address] [place] [address], [place], [address], 11/24/2022 16:15:00 Result Notes None recorded. Problems Name Problem SNOMED Code Status Onset Date Resolution Date Notes Provider Name and Address Organization Details Recorded Time Gastroesophage al reflux disease 046967409 Active 2022 KENNEY montoya [place] - [facility] 3 16:12:05 Migraine 62036754 Active 2022 KENNEY montoya PA - [facility] 3 16:12:17 Chronic back pain 279966933 Active 2022 [facility]oya [facility] - [facility] [...] Updated DateTime 3 180.34 cm 37.1 kg/m2 922663. 57 g 97.2 [degF] 18 /min 78 /min 98 % 98 % 142 mm[Hg] 79 mm[Hg] KENNEY ANGULO [facility] 16:14:38 Social History Question Answer Notes LastModified by [employer] ion Details LastModified Time Tobacco Smoking Status Never Smoker KENNEY montoya PA [facility] 11/24/2022 16:12:54 What Is Your Level [...] SNOMED-CT Code Diagnosis ICD10 Code Diagnosis Note [id number] [address] [address] 05/01/2022 17:21:49 05/01/2022 17:50:42 [id number] 21004_[address] [address] 05/03/2020 09:55:42 05/03/2020 11:30:41 [id number] ZOHREH MONTIEL 21005_[facility] [address] [place] [address] 11/24/2022 15:59:16 11/24/2022 16:57:03 Acute upper respiratory infection 60728747 J06.9 Sore throat 859841914 J0 2.9 Known strep exposure. Rapid strep [...] Member ID Guarantor Name 11/24/2022 [facility]) Thuan Nguyen [id number] Thuan Nguyen Notes Date Note Type Note [...] paediatricians office as well. BLAYNE Wilcox, ZOHREH [facility] [place], [address], [place] - [facility] 11/24/2022 16:48:47
--- OUTSIDE RECORDS SUMMARY | 2025-03-03 13:58 | XMS_ITS | Encounter Summary ---
Author Name [facility] [place] [facility] [place] Organization [place] Address [address] [place] [address] Support Name Relationship Address Phone LEIGHTON ALLEN Next of Kin [address] [address] LEIGHTON ALLEN Emergency Contact [address] [place] [address] Care Team Providers Care Swatch Maker Name Role Phone CORINNA SEVILLA Primary Care [...] Relationship to Policy Gloria JULIANNA [employer] [place] OF [facility]ICE [facility] DEPT OF COR Aug 17, 2020 [id number] ALLEN,CAR LOS PATIENT BCBS [place]SIF (BLUE CARD) PREFERRED PROVIDER ORGANIZAT ION (PPO) ST [facility] DEPT OF COR Aug 17, 2020 [id number] ALLEN,CAR LOS PATIENT CAREMARK PRESCRIPT ION [facility] Aug 17, 2020 [id number] [phone] ALLEN,CAR LOS PATIENT [facility] PRESCRIPT ION [facility] Aug 17, 2020 [id number] [phone] ALLEN,CAR LOS PATIENT Selected Encounter This section includes the information on record at [place] for the Encounter. Date/Time Encounter Type Encounter Description Reason Pro vider Source IHE Encounter Template Text not used by VA
--- OUTSIDE RECORDS SUMMARY | 2025-03-03 13:58 | XMS_ITS ---
Author Organization [facility] Address [address] [address] Care Team Providers Care Grinding And Spraying Supervisor Name Role Phone Nena Ortiz Primary Care Provider REASON FOR VISIT Needs R/S cancelled appr Encounters Encounter Location Date Provider Diagnosis [facility] [address] [address] 01/11/2025 Nena Ortiz Plan Of Treatment No Information Progress Notes * Feliciano ALLENsDOB:1990 (34 yo M)Acc No.[id number]:01/11/2025 Patient:?Thuan ALLEN :1990???Age:34 Y???Sex:Male Address:[facility] [place], [address] * * Date:?
--- OUTSIDE RECORDS SUMMARY | 2025-03-03 13:58 | XMS_ITS | Data Portability ---
Author Organization [place] [facility] Shayan Sánchez AONE [place] Address [address] [place] [address] Care Team Providers Care Bursar Name Role Phone CITLALI KENNEY Primary Care Provider [phone] CITLALI KENNEY Referring Provider SABA KWOK Manager Gift Assessment Encounter Date Assessment Date Assessment LastModified [...] physical examination, tests/diagnostic imaging, and treatment plan Not available 10/28/2024 09:40:50 12/23/2024 12/23/2024 I [...] for repeat evaluation. Not available 01/20/2025 10:48:57 03/02/2025 03/02/2025 He continues to have ongoing discomfort of the left foot despite a normal MRI and overall reassuring exam. As he is making improvements with physical therapy would recommend he continue. He is eligible for light duty work. Follow-up in 8 weeks for repeat assessment. Patient was seen and evaluated by Adama Steinberg PA-C in indirect conjunction with Documenting Provider: Almita Thompson MD He/She agrees with history, physical examination, tests/diagnostic imaging, and treatment plan [email or web address] Not available 03/02/2025 10:38:53 Plan of Treatment Reminders Order Date Submit Date Provider Last Modified By Organization Details Last Modified Time Details Appointments WC FOLLOW-UP 2024 08:30A M Almita Thompson MD Not available Not available Not available Lab None recorded. Referral None recorded. Procedures None recorded. Surgeries None recorded. Imaging XR, ankle, 3 or more view 2023 024 [email or web address] [facility], [address], [place], [address], 10/28/2024 10:36:43 XR, foot, 2 view 2023 024 [email or web address] [facility], [address], [place], [address], 10/28/2024 10:36:43 MRI, foot, w/o contrast - Rule out edema in the fourth and fifth metatarsa ls, rule out occult fracture, work injury 4 months ago, failed conservat vaughn care 2023 024 [facility] Not available 12/06/2024 15:29:06 Medication Orders None recorded. Patient TargetsNo targets recorded. Patient Instructions Encounter Date Encounter Id Patient Instructions Last Modified By Organization Details Last Modified Time 10/28/2024 [id number] Weightbearing x-rays of the left foot and ankle were obtained on 10/28/2024 which is negative for acute fracture. No evidence of periosteal stress reaction. No widening of the Lisfranc complex. [email or web address] Not available 10/28/2024 09:41:08 12/23/2024 [id number] Weightbearing x-rays of the left foot and ankle were obtained on 10/28/2024 which is negative for acute fracture. No evidence of periosteal stress reaction. No widening of the Lisfranc complex. Not available 11/25/2024 08:29:38 01/20/2025 [id number] Weightbearing x-rays of the left foot and ankle were obtained on 10/28/2024 which is negative for acute fracture. No evidence of periosteal stress reaction. No widening of the Lisfranc complex. [email or web address] Not available 01/20/2025 08:22:38 03/02/2025 [id number] Weightbearing x-rays of the left foot and ankle were obtained on 10/28/2024 which is negative for acute fracture. No evidence of periosteal stress reaction. No widening of the Lisfranc complex. [email or web address] Not available 03/02/2025 08:31:08 Reason for Referral None Reported. Results Created [...] Organization Details Recorded Time Strain of foot 42443786528 Active 025 Almita Thompson MD [address], [place], [address] , [place] [facility], 10:20:55 Problem Notes None recorded. Procedures Surgical [...] Not Available Not Available No t Available ibuprofen 800 mg tablet TAKE 1 TABLET ORALLY EVERY 8 HOURS NEEDED FOR PAIN active Not Available Not Available No t [...] Available penicillin V potassium 500 mg tablet TAKE 1 TABLET BY MOUTH TWICE A DAY FOR 10 DAYS active Not Available Not Available No [...] Available Not Available Ubrelvy 100 mg tablet PLEASE SEE ATTACHED FOR DETAILED [...] Updated DateTime 10/28/2024 180.34 cm 39.1 kg/m2 519008.86 g ADAMA STEINBERG PA-C [address], [place], [address], [place] [facility] 10/28/2024 09:28:58 Date Recorded Body height Body mass index (BMI) Body weight Provider Name and Address Organization Details Last Updated DateTime 12/23/2024 180.34 cm 39.1 kg/m2 635929.[address] [place] [facility] 12/23/2024 09:50:01 Date Recorded Body height Body mass index (BMI) Body weight Provider Name and Address Organization Details Last Updated DateTime 01/20/2025 180.34 cm 39.1 kg/m2 522074.[address] [place] [facility] 01/20/2025 09:10:53 Date Recorded Body height Body mass index (BMI) Body weight Provider Name and Address Organization Details Last Updated DateTime 03/02/2025 180.34 cm 39.1 kg/m2 628536.[address] [place] [facility] 03/02/2025 09:37:22 Social History None recorded. Functional Status None recorded. Mental Status None recorded. Family History Nothing Reported. Medical History No medical history recorded. Past Encounters Encounter ID Performer Location Encounter Start Date Encounter Closed Date Diagnosis/Indication Diagnosis SNOMED-CT Code Diagnosis ICD10 Code Diagnosis Note [id number] MD BROOKLYN Wallis [address] [address] 10/28/2024 09:05:04 10/28/2024 09:52:11 Ankle pain 537522767 M25.572 Pain in left foot 205853 7208 36737 M79.672 [id number] MD BROOKLYN Wallis [address] [address] 12/23/2024 09:48:32 12/23/2024 10:25:26 Strain of foot 8453221486 9 S96.912D [id number] MD BROOKLYN Wallis [address] [address] 01/20/2025 08:59:53 01/20/2025 09:37:45 Strain of foot 2277370944 9 S96.912D [id number] MD BROOKLYN Wallis [address] [address] 03/02/2025 09:23:49 03/02/2025 10:02:11 Strain of foot 3975107228 9 S96.912D Health Concerns Section Related Observation LastModified by Organization Detai ls LastModified Time None Recorded Concern Status LastModified by Organization Details LastModified Time None Recorded Advance Directives Directive None Recorded Payers Encounter Date Sequence Insurance Name Policy Number Policy Gloria Covered Member ID Gloria Member ID Guarantor Name 10/28/2024 [employer] [id number] Francisca Nguyen 12/23/2024 [employer] [id number] Francisca Nguyen 01/20/2025 [employer] [id number] Francisca Nguyen 03/02/2025 [employer] [id number] Francisca Nguyen Notes Date Note [...] no medical history. 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 He drinks about 4 alcoholic drinks per week. ADAMA STEINBERG PA-C [address], [place], [address], [place] [facility] 10/28/2024 09:42:03 12/23/2024 text/html Date of [...] no medical history. 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 He drinks about 4 alcoholic drinks per week. Almita Thompson MD [address], [place], [address], [place] [facility] 12/26/2024 19:04:57 01/20/2025 text/html Date of [...] no medical history. 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 He drinks about 4 alcoholic drinks per week. Almita Thompson MD [address], [place], [address], [place] [facility] 01/20/2025 10:49:04 03/02/2025 text/html Date of injury: 07/03/24 Thuan Nguyen is a 34 year old male who presents today for follow-up evaluation regarding his left foot. He has made minor improvement since his last visit. He does come with a note from his physical therapist who does feel that he has made improvements however unable to return to full duty. He continues to have sharp and stabbing pain through his dorsal foot. From 01/20/25 (AJF): He has worn the boot for the [...] no medical history. 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 He drinks about 4 alcoholic drinks per week. Almita Thompson MD [address], [place], [address], [place] [facility] 03/02/2025 21:13:47
--- OUTSIDE RECORDS SUMMARY | 2025-03-03 13:58 | XMS_ITS | Encounter Summary ---
Author Name [facility] [place] Organization [facility] [place] Address [address] [place] [address] Support Name Relationship Address Phone TIFFANY LEIGHTON Next of Kin [address] [address] LEIGHTON ALLEN Emergency Contact [address] [place] [address] Care Team Providers Care Sweatband Flanger Name Role Phone CORINNA SEVILLA Primary Care [...] [facility] DEPT OF COR Aug 17, 2020 [id number] 00H [id number] ALLEN,CAR LOS PATIENT BCBS YOUSIF (BLUE CARD) PREFERRED PROVIDER ORGANIZAT ION (PPO) ST OF [facility] DEPT OF COR Aug 17, 2020 [id number] [id number] ALLEN,CAR LOS PATIENT CAREMARK PRESCRIPT ION [facility] Aug 17, 2020 [id number] ALLEN,CAR LOS PATIENT [facility] PRESCRIPT ION [facility] Aug 17, 2020 [id number] ALLEN,CAR LOS PATIENT Selected Encounter This section includes the information on record at [place] for the Encounter. Date/Time Encounter Type Encounter Description Reason Provider Source Oct 11, 2024 09:00 AM OFFICE O/P EST MOD 30 MIN [facility] ICD-10-CM F43.12 Post-traumatic stress disorder, chronic GABRIELHEAVENLYPERRI Vieyra Katie Encounter Template Text not used by [place] Assessments - Encounter Diagnoses This section includes the primary and secondary diagnoses documented for the Encounter. Date/Time Primary/Secondary Diagnosis Diagnosis Name Provider Source Oct 11, 2024 09:44 AM PRIMARY Post-traumatic stress disorder, chronic MIGUELITO GABRIEL [place] Plan of Treatment: Future Appointments (+ 6 months) and Future Tests (+/- 45 days) The Plan of Treatment section includes future care activities for the patient from all [facility]. This section includes future appointments and future orders which are active, pending or scheduled. Future Appointments This section includes appointments that were scheduled to occur 6 months from the date of the Encounter, up to a maximum of 20 appointments. The data comes from all [place] treatment facilities. Appointment Date/Time Appointment Type Appointme nt Facility Name Oct 27, 2024 04:00 PM AMBULATORY - NONE [facility] [place] [facility] Nov 02, 2024 09:30 AM AMBULATORY - NONE [facility] [place] [facility] Nov 22, 2024 03:30 PM AMBULATORY - MEDICINE [facility] [place] [facility] Dec 23, 2024 09:00 AM AMBULATORY - MEDICINE [facility] [place] [facility] Dec 23, 2024 09:01 AM AMBULATORY - MEDICINE [facility] [place] [facility] Dec 30, 2024 11:00 AM AMBULATORY - NONE [facility] [place] [facility] Jan 13, 2025 08:30 AM AMBULATORY - MEDICINE [facility] Jan 20, 2025 08:30 AM AMBULATORY - PSYCHIATRY [facility] Mar 10, 2025 08:30 AM AMBULATORY - PSYCHIATRY [facility] Social History: Smoking Status (Most current) and Tobacco Use (All prior to encounter date) This section includes the most current, and the historical, smoking and tobacco- related health factors from the [place] facility where the Encounter took place. Current Smoking Status This section includes the most current smoking, or tobacco-related health factor, from the VA facility where the Encounter took place. Date/Time Current Smoking Status Comment Facil ity Nov 20, 2022 01:00 PM VA-TOBACCO NEVER USED [place] Tobacco Use History This section includes a history of the smoking, or tobacco-related health factors, that were collected on or before the date of the Encounter. The data comes from the [place] facility where the Encounter took place. Date/Time Smoking Status/Tobacco Use Comment Megan mcconnell Nov 26, 2021 11:30 AM VA-TOBACCO NEVER USED [place] Encounter Notes: All associated encounter notes This section contains the clinical notes associated to the Encounter. Date/Time Encounter Note(s) Provider Source Oct 11, 2024 09:03 AM TELEHEALTH NOTE: LOCAL TITLE: ME VIDEO CONNECT PSYCHIATRIST NOTE STANDARD TITLE: TELEHEALTH NOTE DATE OF NOTE: OCT 11, 2024@09:03 ENTRY DATE: OCT 11, 2024@09:03:10 AUTHOR: MIGUELITO GABRIEL EXP COSIGNER: URGENCY: STATUS: COMPLETED VA Video Connect (VVC) Standard Documentation VVC Clinician Resources Only: E911 (Emergency Call Relay Center): [phone] [facility] Crisis Line - 988 then press #1. [facility] Suicide Coordinator [phone], Ext. [phone]; Back-up Ext. [phone] [place] Police, [place], [place] [phone] Introduction: Visit is being conducted by [place] Auth0. Kennard identified with 2 identifiers: [X] Full Name [X] Date of [ ] ME ID Card Emergency Plan: Kennard confirmed and/or provided the following information in case of emergency or technology failure. PATIENT PHONE - PHONE NUMBER [CELLULAR] - Is patient phone number correct, if not, enter below: 's phone number: DENISSE ALLEN [address] [place] [address], [address] 's [facility] Kennard's emergency contact name and phone number: chart reported that location is private and safe: Yes Informed Consent: Kennard informed of the risks and benefits of Telehealth video care. Kennard has the right to refuse video services. If refuses video visit, a [id number] visit will be scheduled. verbalized consent for this video visit: Yes Kennard provided consent for any other persons present [...] and his is main support; correction officer [facility] [place] system Pt previously reported decreased [...] Sleep apnea 3. Chronic Post-Traumatic Stress Disorder ([facility] [id number]) 4. Major depressive disorder 5. Comanagement 6. [...] denied suicidal and violent ideation, but the [place] Crisis Line information and number were reviewed [...] this VA (local) and dispensed from another [place] or DoD facility (remote) as well as [...] 10/11/2024 09:57 /mercedes/ Makenzie Mccarthy ADVANCED SENIOR CLIMATE ADVISOR MIGUELITO GABRIEL
--- OUTSIDE RECORDS SUMMARY | 2025-03-03 13:58 | XMS_ITS | Clinical Summary ---
Author Organization [facility] it Address [address] [place] [address] Care Team Providers Care Director Zone Name Role Phone Rosamaria Sam MD Primary Care Provider [phone] Immunizations Name Administration Dates Next Due Pfizer [...] 5 season) 2024 08/16/2021, 07/26/2021 Influenza Vaccine (Season Ended) 2025 2021, 01/05/2021 HIB Vaccines Aged Out No longer [...] age to complete this topic Meningococcal B Vaccine Aged Out No l onger eligible based on patient's age to complete [...] age to complete this topic Care Teams Director Zone Relationship Specialty Start Date End Date Rosamaria Sam MD [address] [place] [address] Dr [address] [facility] [place] [address] PCP - General 07/03/24
--- OUTSIDE RECORDS SUMMARY | 2025-03-03 13:59 | XMS_ITS | Encounter Summary ---
Author Organization Formerly [facility] Address [address] [place] [address] Care Team Providers Care Eeg Technician Name Role Phone Unavailable Primary Care Provider Unavailabl e Encounter Details Date Type Department Care Team (Late st Contact Info) Description 09/22/2020 Lab Requisition [facility] Testing [address] [phone] Michele Hwang PA-C [address] [place] [address] Encounter for laboratory testing for COVID-19 virus Social History Tobacco Use Types Packs/Day Years Used Date Smoking Tobacco: Never Assessed Sex and Gender Information Value Date Recorded Sex Assigned at Not on file Legal Sex Male 5:01 PM EDT Gender Identity Not on file Sexual [...] DETECTED NOT DETECTED 09/24/2020 7:00 PM EST [facility] [...] providers and patients using the following websites: https://www.Kidamom.CastTV/home/Covid-19/HCP/QuestLDTP/ fact-sheet https://www.Kidamom.CastTV/home/Covid-19/Patients/QuestLDTP/ fact-sheet.html This test has been authorized by the FDA under an Emergency Use Authorization (EUA) for use by authorized laboratories. Due to the current public health emergency, [employer] is receiving a high volume of samples [...] about COVID-19 can be found at the [employer] website: www.Quantifeed.CastTV/Covid19. Microbiology Nasopharyngeal swab / Unknown 09/22/2020 3:25 PM EST 09/22/2020 3:25 PM EST Narrative [facility] - 09/24/2020 7:00 PM EST Performing Organization Information: ?Site ID: [id number] ?Name: [employer] ?Address: [address] [place] [address],[place] [address] ?Director: JAMIA CANNON MD Performed at [facility] License number [id number] Michele Hwang PA-C BODY FLUIDS AND STOOLS OR DERABLES Final Result Performing Organization Address City/State/[facility] de Phone Number [facility] documented in this encounter Visit Diagnoses Diagnosis Encounter for laboratory testing for COVID-19 virus documented in this encounter
--- OUTSIDE RECORDS SUMMARY | 2025-03-03 13:59 | XMS_ITS | Clinical Summary ---
Author Organization [facility] Address [address] [place] [address] Care Team Providers Care Elevator Supervisor Name Role Phone Unavailable Primary Care Provider Unavailabl e Encounters Date Type Department Care Team Description 12/24/2024 Orders Only [facility] Urologic Surgery [address] [place] [phone] Nena Ortiz MD 12/24/2024 Transcribe Orders [facility] Urologic Surgery [address] [phone] Nena Ortiz MD Flank pain [...]
--- OUTSIDE RECORDS SUMMARY | 2025-03-03 13:59 | XMS_ITS | Encounter Summary ---
Author Organization [facility] Address [address] [place] [address] Care Team Providers Care Database Support Name Role Phone Unavailable Primary Care Provider Unavailabl e Encounter Details Date Type Department Care Team (Late st Contact Info) Description 09/08/2020 Lab Requisition EM Lab DOC: Raudel Rodriguez [address] [place] [phone] Michele Hwang PA-C [address] [place] [address] Encounter for laboratory testing for COVID-19 virus [...] RNA (COVID-19), Qual (09/08/2020 3:27 PM EDT) SARS CoV 2 RNA, Qual NOT DETECTED NOT DETECTED 09/10/2020 5:00 AM EDT [facility] Comment: A Not Detected (negative) test [...] providers and patients using the following websites: https://www.zhiwo.InsideMaps/home/Covid-19/HCP/QuestLDTP/ fact-sheet https://www.Picklive/home/Covid-19/Patients/QuestLDTP/ fact-sheet.html This test has been authorized by the FDA under an Emergency Use Authorization (EUA) for use by authorized laboratories. Due to the current public health emergency, [employer] is receiving a high volume of samples [...] about COVID-19 can be found at the [employer] website: www.Palamida.InsideMaps/Covid19. Microbiology Nasopharyngeal swab / Unknown 09/08/2020 3:27 PM EDT 09/08/2020 3:27 PM EDT Narrative [facility] - 09/10/2020 5:00 AM EDT Performing Organization Information: ?Site ID: [id number] ?Name: [employer] ?Address: [address] [place] [address],[place] [address] ?Director: JAMIA CANNON MD [facility]formed at [facility] License number [id number] Michele Hwang PA-C BODY FLUIDS AND STOOLS OR DERABLES Final Result Performing Organization Address City/State/[facility] de Phone Number [facility] documented in this encounter Visit Diagnoses Diagnosis Encounter for laboratory testing for COVID-19 virus documented in this encounter
--- OUTSIDE RECORDS SUMMARY | 2025-03-03 13:59 | XMS_ITS | Encounter Summary ---
Author Organization [facility] Address [address] [place] [address] Care Team Providers Care Lace Paper Machine Operator Name Role Phone Unavailable Primary Care Provider Unavailabl e Encounter Details Date Type Department Care Team (Late st Contact Info) Description 08/18/2020 Lab Requisition [facility] Testing [address] [phone] Michele Hwang PA-C [address] [place] [address] Encounter for laboratory testing for COVID-19 virus [...] 08/20/2020 12:00 AM EDT [facility] Comment: A Not Detected (negative) [...] providers and patients using the following websites: https://www.Samasource.iViZ Security/home/Covid-19/HCP/QuestLDTP/ fact-sheet https://www.Telsima/home/Covid-19/Patients/QuestLDTP/ fact-sheet.html This test has been authorized by the FDA under an Emergency Use Authorization (EUA) for use by authorized laboratories. Due to the current public health emergency, [facility] is receiving a high volume of samples [...] about COVID-19 can be found at the [employer] website: www.Leikr.iViZ Security/Covid19. Microbiology Nasopharyngeal swab / Unknown 08/18/2020 3:51 PM EDT 08/18/2020 3:51 PM EDT Narrative [facility] - 08/20/2020 12:00 AM EDT Performing Organization Information: ?Site ID: [id number] ?Name: [employer] ?Address: [address] [place] [address] [address] [facility],[place] [address] ?Director: JAMIA CANNON MD Performed at [facility] License number [id number] Michele Hwang PA-C BODY FLUIDS AND STOOLS OR DERABLES Final Result Performing Organization Address City/State/[facility] Co de Phone Number [facility] documented in this encounter Visit Diagnoses Diagnosis Encounter for laboratory testing for COVID-19 virus documented in this encounter
--- OUTSIDE RECORDS SUMMARY | 2025-03-03 13:59 | XMS_ITS | Patient Health Record ---
Author Organization [facility] Address [address] [address] Care Team Providers Care Policy Services Representative Name Role Phone Nean Ortiz Primary Care Provider Allergies No Known Allergies Results Component Value Reference Range Notes IRON, TIBC AND FERRITIN PANE L Reviewed date:12/28/2024 08:04:32 AM Interpretation: Performing Lab:NL1, [facility] [employer] [id number] [place], [place] [phone] Jamia Cannon M.D. Notes/Report: FASTING:YES SPECIALIZED COLLECTION. PATIENT REFERRED TO ALTERNATE SITE. FASTING: YES IRON, TOTAL 93 50-180 mcg/dL IRON BINDING CAPACITY 235 250-425 mcg/dL (juan jose c) % SATURATION 40 20-48 % (calc) FERRITIN 149 38-380 ng/mL COMPREHENSIVE METABOLIC PANE L Reviewed date:12/28/2024 08:04:32 AM Interpretation: Performing Lab:NL1, [facility] [employer] [facility] [place], [place] [phone] Jamia Cannon M.D. Notes/Report: FASTING:YES SPECIALIZED COLLECTION. [...] CULTURE Reviewed date:12/28/2024 08:04:32 AM Interpretation: Performing Lab:[facility] [place] [phone] Jamia Cannon M.D. Notes/Report: FASTING:YES SPECIALIZED COLLECTION. [...] PROTEIN Reviewed date:12/28/2024 08:04:32 AM Interpretation: Performing Lab:[facility] [phone] Jamia Cannon M.D. Notes/Report: FASTING:YES SPECIALIZED COLLECTION. PATIENT REFERRED TO ALTERNATE SITE. FASTING: YES C-REACTIVE PROTEIN <3.0 <8.0 mg/L TSH+FREE T4 Reviewed date:11/13/2024 09:17:35 PM Interpretation: Performing Lab:[facility] [phone] Jamia Cannon M.D. Notes/Report: TSH 5.55 0.40-4.50 mIU/L T4, FREE 1.1 0.8-1.8 ng/dL [facility] 25-OH VIT D, (D 2,D3), LC/MS/MS Reviewed date:11/13/2024 09:17:35 PM Interpretation: Performing Lab:[facility], [facility] [address] Jamia Cannon M.D. Notes/Report: VITAMIN D,25-OH,TOTAL,IA 28 30-100 ng/mL Vitamin D Status 25-OH Vitamin D: Deficiency: <20 ng/mL Insufficiency: 20 - 29 ng/mL Optimal: > or = 30 ng/mL For 25-OH Vitamin D testing on patients on D2-supplementation and patients for whom quantitation of D2 and D3 fractions is required, the QuestAssureD(TM) 25-OH VIT D, (D2,D3), LC/MS/MS is recommended: order code 86402 (patients >2yrs). See Note 1 Note 1 For additional information, please refer to http://Tiny Prints.Notehall/faq/NZX133 (This link is being provided for informational/ educational purposes only.) VITAMIN B12 Reviewed date:11/13/2024 09:17:35 PM Interpretation: Performing Lab:[facility], [facility] [phone] Jamia Cannon M.D. Notes/Report: VITAMIN B12 351 846-7712 pg/mL HEMOGLOBIN A1c Reviewed date:11/13/2024 09:17:35 PM Interpretation: Performing Lab:[facility], [facility] [phone] Jamia Cannon M.D. Notes/Report: HEMOGLOBIN A1c [...] diagnosis of diabetes in children. According to [place] Diabetes Association (ADA) guidelines, hemoglobin A1c <7.0% represents optimal control in non- diabetic patients. Different metrics may apply to specific patient populations. Standards of Medical Care in Diabetes(ADA). C-REACTIVE PROTEIN Reviewed date:11/13/2024 09:17:35 PM Interpretation: Performing Lab:[facility] [place] [phone] Jamia Cannon M.D. Notes/Report: C-REACTIVE PROTEIN 9.7 <8.0 mg/L URINALYSIS, COMPLETE W/REFLE X TO CULTURE Reviewed date:11/13/2024 09:17:35 PM Interpretation: Performing Lab:[facility], [facility] [place] [phone] Jamia Cannon M.D. Notes/Report: COLOR YELLOW YELLOW [...] DIFF/PLT) Reviewed date:11/13/2024 09:17:35 PM Interpretation: Performing Lab:[facility], [facility] [phone] Jamia Cannon M.D. Notes/Report: WHITE BLOOD [...] MPV 10.0 7.5-12.5 fL ABSOLUTE NEUTROPHILS [phone] cells/uL ABSOLUTE LYMPHOCYTES [phone] cells/uL ABSOLUTE MONOCYTES 458 200-950 cells/uL ABSOLUTE EOSINOPHILS 276 15-500 cells/uL ABSOLUTE BASOPHILS 31 0-200 cells/uL NEUTROPHILS 55.1 LYMPHOCYTES 30.2 MONOCYTES 8.8 EOSINOPHILS 5.3 BASOPHILS 0.6 COMPREHENSIVE METABOLIC PANE L Reviewed date:11/13/2024 09:17:35 PM Interpretation: Performing Lab:NL1, [facility] [phone] Jamia Cannon M.D. Notes/Report: GLUCOSE 96 [...] Reviewed date:11/13/2024 09:17:35 PM Interpretation: Performing Lab:NL1, [facility] [phone] Jamia Cannon M.D. Notes/Report: CHOLESTEROL, TOTAL [...] LDL-C. Pradip SS et al. BOBBI. 2013;310(19): 4836-0901 (http://Tiny Prints.OneRoof Energy/faq/YSM858) CHOL/HDLC RATIO 4.4 <5.0 (calc) NON HDL CHOLESTEROL 102 <130 mg/dL (calc) For patients with diabetes plus 1 major ASCVD risk factor, treating to a non-HDL-C goal of <100 mg/dL (LDL-C of <70 mg/dL) is considered a therapeutic option. IRON, TIBC AND FERRITIN PANE L Reviewed date:11/13/2024 09:17:35 PM Interpretation: Performing Lab:NL1, [facility] [phone] Jamia Cannon M.D. Notes/Report: IRON, TOTAL 55 50-180 mcg/dL IRON BINDING CAPACITY 244 250-425 mcg/dL (juan jose c) % SATURATION 23 20-48 % (calc) FERRITIN 109 38-380 ng/mL URINE CYTOLOGY Reviewed date:12/28/2024 08:04:32 AM Interpretation: Performing Lab:[facility], [facility] [phone] Jamia Cannon M.D. Notes/Report: SCREENER KF, CT(ASCP) CT screening location: [place] [address] PATHOLOGIST Marion Farrell M.D., Board Certified in Anatomic and Clinical Pathology (electronic signature) A SOURCE Urine A PROCEDURE Cytology A GROSS DESCRIPTION The name on the container is in agreement with the requisition. 50 ml of clear, dark yellow fluid, received in Cytolyt fixative and processed by the ThinPrep method. (DC)12/23/2024 Gross exam(s) performed at: [facility] [address] [place] [phone] Record Tester: JAMIA CANNON MD A DIAGNOSIS NEGATIVE FOR HIGH-GRADE UROTHELIAL CARCINOMA. - BENIGN UROTHELIAL AND SQUAMOUS CELLS PRESENT. Red blood cells present. Acute inflammation present. TSH W/REFLEX TO FT4 Reviewed date:12/28/2024 08:04:32 AM Interpretation: Performing Lab:NL1, [facility] [place], [place] [phone] Jamia Cannon M.D. Notes/Report: FASTING:YES SPECIALIZED COLLECTION. PATIENT REFERRED TO ALTERNATE SITE. FASTING: YES TSH W/REFLEX TO FT4 3.20 0.40-4.50 mIU/L CBC (INCLUDES DIFF/PLT) Reviewed date:12/28/2024 08:04:32 AM Interpretation: Performing Lab:NL1, [facility] [place], [place] [phone] Jamia Cannon M.D. Notes/Report: FASTING:YES SPECIALIZED COLLECTION. [...] MPV 9.8 7.5-12.5 fL ABSOLUTE NEUTROPHILS 2672 3451-3746 cells/uL ABSOLUTE LYMPHOCYTES 1288 982-5576 cells/uL ABSOLUTE MONOCYTES 459 200-950 cells/uL ABSOLUTE EOSINOPHILS 128 15-500 cells/uL ABSOLUTE BASOPHILS 61 0-200 cells/uL NEUTROPHILS 52.4 LYMPHOCYTES 34.9 MONOCYTES 9.0 EOSINOPHILS 2.5 BASOPHILS 1.2 CLIENT EDUCATION TRACKING Reviewed date:11/28/2024 09:26:19 AM Interpretation: Performing Lab:[facility], [facility] [phone] Jamia Cannon M.D. Notes/Report: FASTING: NO CLIENT EDUCATION TRACKING The Requisition we received did not include a [facility] account number. To prevent delays in testing and processing of your orders please provide the following information with every order submitted: [facility] account number and account name Client address Client phone and fax number NPI number of ordering physician along with the physician name. URINE CYTOLOGY Reviewed date:11/28/2024 09:26:19 AM Interpretation: Performing Lab:[facility], [facility] [phone] Jamia Cannon M.D. Notes/Report: SCREENER RMM, CT(ASCP) CT screening location: [place] [address] PATHOLOGIST Néstor Diaz M.D., Board Certified in Anatomic Pathology, Clinical Pathology and Cytopathology (electronic signature) A SOURCE Urine A PROCEDURE Cytology A GROSS DESCRIPTION The name on the container is in agreement with the requisition. 50 ml of clear, pale yellow fluid, received in Cytolyt fixative and processed by the ThinPrep method. (DC)11/16/2024 Gross exam(s) performed at: [email or web address] [address] [address] Record Tester: JAMIA CANNON MD A DIAGNOSIS NEGATIVE FOR HIGH-GRADE UROTHELIAL CARCINOMA. - BENIGN UROTHELIAL AND SQUAMOUS CELLS PRESENT. URINALYSIS, COMPLETE W/REFLE X TO CULTURE Reviewed date:11/28/2024 09:26:19 AM Interpretation: Performing Lab:[facility], [facility] [phone] Jamia Cannon M.D. Notes/Report: FASTING: NO [...] Problem Status W/U Status Risk Notes Problem 04867144 Vitamin D deficiency (E55.9) Active confirmed Problem Mood disorder (31926712) Mood disorder (F39) Active confirmed Problem 87578008 Kidney stones (N20.0) Active confirmed Problem 266041361 Fatty liver (K76.0) Active confirmed Problem 878312659 Acquired hypothyroidism (E03.9) Active confirmed Problem 446196895 Mild intermitten t asthma without complication (J45.20) Active confirmed Problem [id number] CRP elevated (R79.82) Active confirmed Problem 11099042 Hypertension, unspecified type (I10) Active confirmed Problem 26216012 Other migraine without status migrainosus, not intractable [...] Location Date Provider Diagnosis [facility] [address] [place], [place] [phone] 08/10/2024 Nena Ortiz Hypertension, unspecified type I10 [facility] [address] [place], [place] [phone] 09/17/2024 Nena Ortiz Encounter for genera l adult medical examination with abnormal findings Z00.01 ; Hypertension, unspecified type I10 ; Left foot pain M79.672 and Other migraine without status migrainosus, not intractable G43.809 [facility] [address] [place] [phone] 10/15/2024 Nena Ortiz Left foot pain M79.6 72 and Left lateral ankle pain M25.572 [facility] [address] [place] [phone] 11/18/2024 Nena Ortiz Flank pain R10.9 ; Fatty liver K76.0 and Frequent urination R35.0 [facility] [address] [place] [phone] 12/20/2024 Nena Ortiz Kidney stones N20.0 ; CRP elevated R79.82 and Acquired hypothyroidism E03.9 [facility] [address] [address] 11/23/2024 N[facility] Md [address] [place] [address] 01/11/2025 Nena [place] Barrett Md [address] [place] [address] 08/10/2024 Nena Diana [facility] [address] [place] [address] 08/10/2024 Nena Diana [facility] [address] [place] [address] 11/16/2024 Nena Diana Diana Nena Boothe [address] [place] [address] 11/20/2024 Nena Cochrant [facility] [address] [place] [address] 11/20/2024 Nena Diana [facility] [address] [place] [address] 11/24/2024 Nena Diana [facility] [address] [place] [address] 12/27/2024 Nena Diana Assessments Encounter Date Diagnosis [...] Coverage Start Date Coverage End Date [employer] [facility] [address] [place] [address] [id number] Thuan Nguyen Self - patient is the insured Medical (General) History Medical History History ICD Code Mild intermittent asthma without complic ation J45.20 Other migraine without status migrainosu s, not intractable G43.809 Mood disorder F39
--- OUTSIDE RECORDS SUMMARY | 2025-03-03 13:59 | XMS_ITS | Encounter Summary ---
Author Organization [facility] Address [address] [place] [address] Care Team Providers Care Pullman Car Repairer Name Role Phone Unavailable Primary Care Provider Unavailabl e Encounter Details Date Type Department Care Team (Late st Contact Info) Description 06/16/2020 Lab Requisition [facility] Testing [address] [phone] Michele Hwang PA-C [address] [place] [address] Encounter for laboratory testing for COVID-19 virus [...] DETECTED NOT DETECTED 06/17/2020 3:00 PM EDT [facility] Comment: A [...] providers and patients using the following websites: https://www.Banjo.BusyEvent/home/Covid-19/HCP/QuestLDTP/ fact-sheet https://www.biNu/home/Covid19/Patients/QuestLDTP/ fact-sheet.html This test has been authorized by the FDA under an Emergency Use Authorization (EUA) for use by authorized laboratories. Due to the current public health emergency, [facility] is receiving a high volume of samples [...] about COVID-19 can be found at the [employer] [facility] website: www.Numerate.BusyEvent/Covid19. Microbiology Nasopharyngeal swab / Unknown 06/16/2020 1:24 PM EDT 06/16/2020 1:24 PM EDT Narrative [facility] - 06/17/2020 3:00 PM EDT Performing Organization Information: ?Site ID: [id number] ?Name: [employer] ?Address: [address] [place] [address] [address] [address] ?Director: JAMIA CANNON MD Performed at [facility] License number [id number] Michele Hwang PA-C BODY FLUIDS AND STOOLS OR DERABLES Final Result Performing Organization Address City/State/[facility] Co de Phone Number [facility] documented in this encounter Visit Diagnoses Diagnosis Encounter for laboratory testing for COVID-19 virus documented in this encounter
--- OUTSIDE RECORDS SUMMARY | 2025-03-03 13:59 | XMS_ITS | Encounter Summary ---
Author Organization [facility] Address [address] [place] [address] Care Team Providers Care Box Gluer Name Role Phone Unavailable Primary Care Provider Unavailabl e Encounter Details Date Type Department Care Team (Late st Contact Info) Description 07/28/2020 Lab Requisition [facility] Testing [address] [phone] Michele Hwang PA-C [address] [place] [address] Encounter for laboratory testing for COVID-19 virus [...] providers and patients using the following websites: https://www.Franchisee Gladiator.Alaris Royalty/home/Covid-19/HCP/QuestLDTP/ fact-sheet https://www.TestObject/home/Covid-19/Patients/QuestLDTP/ fact-sheet.html This test has been authorized by the FDA under an Emergency Use Authorization (EUA) for use by authorized laboratories. Due to the current public health emergency, [facility] is receiving a high volume of samples [...] about COVID-19 can be found at the [facility] website: www.[employer].Alaris Royalty/Covid19. Microbiology Nasopharyngeal swab / Unknown 07/28/2020 3:29 PM EDT 07/28/2020 3:29 PM EDT Narrative [facility] - 08/01/2020 6:00 PM EDT Performing Organization Information: ?Site ID: [id number] ?Name: [facility] ?Address: [address] [place] [address] [address] [facility] [address] ?Director: JAMIA CANNON MD [facility] at [facility] License number [id number] Michele Hwang PA-C BODY FLUIDS AND STOOLS OR DERABLES Final Result Performing Organization Address City/State/[facility] Co de Phone Number [facility] documented in this encounter Visit Diagnoses Diagnosis Encounter for laboratory testing for COVID-19 virus documented in this encounter
--- OUTSIDE RECORDS SUMMARY | 2025-03-03 13:59 | XMS_ITS | Continuity of Care Document ---
Author Name [facility] Organization [facility] Care Team Providers Care Television Anchor Name Role Phone [facility] Unavailable Unavailable Problems Combined list of problems [...] 2023 Entered By: MIGUELITO GABRIEL Comment: reviewed [facility] [place] [facility] Chronic Post-Traumatic Stress Disorder ([facility] [id number]) Active Condition Oct 13, 2023 Entered By: MIGUELITO GABRIEL Comment: reviewed [facility] Comanagement Active Condition Dec 01, 2022 Entered By: RUTHIE ESTEBAN Comment: Belén Knight [facility] Exposure to potentially hazardous substance Active Condition Dec 15, 2022 Entered By: JANEY RODRIGEZ Comment: [facility] (631GE) History of deployment Active Condition [facility] Major depressive disorder Active Condition Jan 25, 2021 Entered By: MIGUELITO GABRIEL Comment: reviewedAug 20, 2021 Entered By: MIGUELITO GABRIEL Comment: reviewedOct 13, 2023 Entered By: MIGUELITO GABRIEL Comment: reviewed [facility] Migraine Active Condition Jul 25 Entered By: RUTHIE ESTEBAN Comment: followed by Dr. Vo [facility] Sleep apnea Active Condition Sep 09, 2022 Entered By: RUTHIE ESTEBAN Comment: unable to tolerate PAP therapy [facility] Affective disorder Inactive Condition 10/13/2023 [facility] Chronic post-traumatic stress disorder Inactive Condition 08/20/2021 [facility] LD Diagnosis: ICD-10-CM G47.30 Sleep apnea, unspecified Active Diagnosis [facility] Diagnosis: ICD-10-CM F43.12 Post-traumatic stress disorder, chronic Active Diagnosis [facility] Diagnosis: ICD-10-CM R06.83 Snoring Active Diagnosis [facility] D Diagnosis: ICD-10-CM K03.0 Excessive attrition of teeth Active Diagnosis [facility] Diagnosis: ICD-10-CM G47.33 Obstructive sleep apnea (adult) (pediatric) Active Diagnosis [facility] Diagnosis: ICD-10-CM K03.6 Deposits [accretions] on teeth Active Diagnosis [facility] Diagnosis: ICD-10-CM M54.59 Other low back pain Active Diagnosis [facility] Medications Combined list of outpatient medications from [...] AT BEDTIME ORAL ACTIVE Guy GABRIEL 2023 [facility] IELD SERTRALINE HCL 25MG TAB TAKE ONE TABLET BY MOUTH ONCE DAILY FOR POSTTRAU MATIC STRESS SYNDROME ORAL ACTIVE 01/21/2026 [id number] Guy GABRIEL 2024 60 [place] SERTRALINE HCL 25MG TAB TAKE ONE TABLET BY MOUTH ONCE DAILY FOR POSTTRAU MATIC STRESS SYNDROME ORAL DISCONT INUED (EDIT) 08/06/2025 [id number] Guy GABRIEL 2023 60 [place] SERTRALINE HCL 25MG TAB TAKE ONE TABLET BY MOUTH ONCE DAILY FOR MOOD ORAL DISCONT INUED 10/13/2024 [id number] Guy GABRIEL 2022 60 [place] SODIUM FLUORIDE 1.1% TOOTHPASTE BRUSH SMALL AMOUNT TO TEETH TWICE DAILY FOR TOOTH DECAY PREVENTI ON DENTAL ACTIVE 10/12/2025 [id number] 4 Geraldine KEYES 2023 51 [facility] [place] [facility] UBROGEPANT TAB TAKE BY MOUTH ONE TIME ORAL ACTIVE Guy GABRIEL 2023 [facility] IELD Results Combined list of recent chemistry, [...] Sep 17, 2023 11:53 AM Reporting [facility] [address] [address] Performing Lab: [facility] [place] [address] [address] [facility] [place] [facility] LIPID PANEL FASTING CHOLESTEROL [MASS/VOLUM E] IN SERUM OR PLASMA 168 mg/dL 09/17 Specimen Type: SERUM No comment entered. Ordering Provider: JOSHUA ESTEBAN Report Released Date/Time: March 19, 2023 04:54 PM Reporting Lab: [facility] [place] [address] [address] Performing Lab: [facility] [place] [facility] [address] [facility] [address] [facility] LIPID PANEL FASTING TRIGLYCERID E [MASS/VOLUM E] IN SERUM OR PLASMA 185 mg/dL 0 - 150 09/17 H Specimen Type: SERUM No comment entered. Ordering Provider: JOSHUA ESTEBAN Report Released Date/Time: March 19, 2023 04:54 PM Reporting Lab: [facility] [place] [facility] [address] [facility] [address] Per[facility] Lab: [facility] [place] [address] [address] [facility] [facility] LIPID PANEL FASTING CHOLESTEROL IN LDL [MASS/VOLUM E] IN SERUM OR PLASMA BY CALCULATION 91 mg/dL 0 - 129 09/17 Specimen Type: SERUM No comment entered. Ordering Provider: JOSHUA ESTEBAN Report Released Date/Time: March 19, 2023 04:54 PM Reporting Lab: [facility] [place] [facility] [address] [facility] [address] Performing Lab: [facility] [place] [facility] [address] [facility] [address] [facility] [place] [facility] LIPID PANEL FASTING CHOLESTEROL .TOTAL/CHOL ESTEROL IN HDL [MASS RATIO] IN SERUM OR PLASMA 4.2 09/17 Specimen Type: SERUM No comment entered. Ordering Provider: JOSHUA ESTEBAN Report Released Date/Time: March 19, 2023 04:54 PM Reporting Lab: [facility] [place] [address] [address] Performing Lab: [facility] [place] [address] [address] [facility] [place] [facility] LIPID PANEL FASTING CHOLESTEROL IN HDL [MASS/VOLUM E] IN SERUM OR PLASMA 40 mg/dL 40 - 60 09/17 Specimen Type: SERUM No comment entered. Ordering Provider: JOSHUA ESTEBAN Report Released Date/Time: March 19, 2023 04:54 PM Reporting Lab: [facility] [place] [address] [address] Performing Lab: [facility] [place] [address] [address] [facility] [place] [facility] LIVER FUNCTION PROTEIN [MASS/VOLUM E] IN SERUM OR PLASMA 7.5 g/dL 6.0 - 8.3 09/17 Specimen Type: SERUM No comment entered. Ordering Provider: JOSHUA ESTEBAN Report Released Date/Time: March 19, 2023 04:54 PM Reporting Lab: [facility] [place] [address] [address] Performing Lab: [facility] [place] [facility] [address] [facility] [address] [facility] [place] [facility] LIVER FUNCTION ALBUMIN [MASS/VOLUM E] IN SERUM OR PLASMA 4.3 g/dL 3.5 - 5.0 09/17 Specimen Type: SERUM No comment entered. Ordering Provider: JOSHUA ESTEBAN Report Released Date/Time: March 19, 2023 04:54 PM Reporting Lab: [facility] [place] [facility] [address] [facility] [address] Performing Lab: [facility] [place] [facility] [address] [facility] [address] [facility] [place] [facility] LIVER FUNCTION ALKALINE PHOSPHATASE [ENZYMATIC ACTIVITY/VO LUME] IN SERUM OR PLASMA 49 U/L 40 - 150 09/17 Specimen Type: SERUM No comment entered. Ordering Provider: JOSHUA ESTEBAN Report Released Date/Time: March 19, 2023 04:54 PM Reporting Lab: [facility] [place] [facility] [address] [facility] [address] Performing Lab: [facility] [place] [facility] [address] [facility] [address] [facility] [place] [facility] LIVER FUNCTION ASPARTATE AMINOTRANSF ERASE [ENZYMATIC ACTIVITY/VO LUME] IN SERUM OR PLASMA 19 U/L 5 - 34 09/17 Specimen Type: SERUM No comment entered. Ordering Provider: JOSHUA ESTEBAN Report Released Date/Time: March 19, 2023 04:54 PM Reporting Lab: [facility] [place] [facility] [address] [facility] [address] Performing Lab: [facility] [place] [facility] [address] [facility] [address] [facility] [place] [facility] LIVER FUNCTION ALANINE AMINOTRANSF ERASE [ENZYMATIC ACTIVITY/VO LUME] IN SERUM OR PLASMA 30 U/L 09/17 Specimen Type: SERUM No comment entered. Ordering Provider: JOSHUA ESTEBAN Report Released Date/Time: March 19, 2023 04:54 PM Reporting Lab: [facility] [place] [facility] [address] [facility] [address] Performing Lab: [facility] [place] [facility] [address] [facility] [address] [facility] [place] [facility] LIVER FUNCTION BILIRUBIN.T OTAL [MASS/VOLUM E] IN SERUM OR PLASMA 0.8 mg/dL 0.2 - 1.2 09/17 Specimen Type: SERUM No comment entered. Ordering Provider: JOSHUA ESTEBAN Report Released Date/Time: March 19, 2023 04:54 PM Reporting Lab: [facility] [place] [facility] [address] [facility] [address] Performing Lab: [facility] [address] [address] [facility] BASIC METABOLIC PANEL (fasting) UREA NITROGEN [MASS/VOLUM E] IN SERUM OR PLASMA 13 mg/dL 7 - 25 09/17 Specimen Type: SERUM No comment entered. Ordering Provider: JOSHUA ESTEBAN Report Released Date/Time: March 19, 2023 04:54 PM Reporting Lab: [facility] [place] [address] [address] Performing Lab: [facility] [address] [address] [facility] BASIC METABOLIC PANEL (fasting) GLUCOSE [MASS/VOLUM E] IN SERUM OR PLASMA 92 mg/dL 65 - 100 09/17 Specimen Type: SERUM No comment entered. Ordering Provider: JOSHUA ESTEBAN Report Released Date/Time: March 19, 2023 04:54 PM Reporting Lab: [facility] [place] [facility] [address] [facility] [address] Performing Lab: [facility] [place] [address] [address] [facility] BASIC METABOLIC PANEL (fasting) SODIUM [MOLES/VOLU ME] IN SERUM OR PLASMA 139 mmol/L 135 - 145 09/17 Specimen Type: SERUM No comment entered. Ordering Provider: JOSHUA ESTEBAN Report Released Date/Time: March 19, 2023 04:54 PM Reporting Lab: [facility] [place] [facility] [address] [facility] [address] Performing Lab: [facility] [place] [facility] [address] [facility] [address] [facility] [place] [facility] BASIC METABOLIC PANEL (fasting) POTASSIUM [MOLES/VOLU ME] IN SERUM OR PLASMA 4.2 mmol/L 3.5 - 5.0 09/17 Specimen Type: SERUM No comment entered. Ordering Provider: JOSHUA ESTEBAN Report Released Date/Time: March 19, 2023 04:54 PM Reporting Lab: [facility] [place] [facility] [address] [facility] [address] Performing Lab: [facility] [place] [address] [address] [facility] BASIC METABOLIC PANEL (fasting) CHLORIDE [MOLES/VOLU ME] IN SERUM OR PLASMA 105 mmol/L 100 - 110 09/17 Specimen Type: SERUM No comment entered. Ordering Provider: JOSHUA ESTEBAN Report Released Date/Time: March 19, 2023 04:54 PM Reporting Lab: [facility] [place] [address] [address] Performing Lab: [facility] [place] [address] [address] [facility] [place] [facility] BASIC METABOLIC PANEL (fasting) CARBON DIOXIDE, TOTAL [MOLES/VOLU ME] IN SERUM OR PLASMA 26 meq/L 20 - 30 09/17 Specimen Type: SERUM No comment entered. Ordering Provider: JOSHUA ESTEBAN Report Released Date/Time: March 19, 2023 04:54 PM Reporting Lab: [facility] [place] [facility] [address] [facility] [address] Performing Lab: [facility] [place] [address] [address] [facility] [place] [facility] BASIC METABOLIC PANEL (fasting) CREATININE [MASS/VOLUM E] IN SERUM OR PLASMA 1.11 mg/dL 0.50 - 1.40 09/17 Specimen Type: SERUM No comment entered. Ordering Provider: JOSHUA ESTEBAN Report Released Date/Time: March 19, 2023 04:54 PM Reporting Lab: [facility] [address] [facility] [address] Performing Lab: [facility] [address] [facility] [address] [facility] BASIC METABOLIC PANEL (fasting) GLOMERULAR FILTRATION RATE/1.73 SQ M.PREDICTED [VOLUME RATE/AREA] IN SERUM, PLASMA OR BLOOD BY CREATININE- BASED FORMULA (CKD-EPI 2020) 90 mL/min 60 09/17 Specimen Type: SERUM No comment entered. Ordering Provider: JOSHUA ESTEBAN Report Released Date/Time: March 19, 2023 04:54 PM Reporting Lab: [facility] [address] [address] Performing Lab: [facility] [address] [address] [facility] HEMOGLOBI N A1C PANEL HEMOGLOBIN [...] March 19, 2023 04:54 PM Reporting Lab: [facility] [address] [address] Performing Lab: [address] [address] [facility] TSH THYROTROPIN [UNITS/VOLU ME] IN SERUM OR PLASMA 2.26 u[IU]/ mL 0.35 - 5.00 09/17 Specimen Type: SERUM No comment entered. Ordering Provider: JOSHUA ESTEBAN Report Released Date/Time: March 19, 2023 04:54 PM Reporting Lab: [facility] [place] [place] [facility] [address] [facility] [address] Performing Lab: [facility] [address] [address] [facility] [place] [facility] CBC AND DIFF (AUTO) LEUKOCYTES [#/VOLUME] IN BLOOD BY AUTOMATED COUNT 11.72 10*3/u L 4.50 - 11.00 09/17 H Specimen Type: BLOOD No comment entered. Ordering Provider: JOSHUA ESTEBAN Report Released Date/Time: March 19, 2023 04:54 PM Reporting Lab: [facility]TR[facility] [address] [address] Performing Lab: [facility] TRN [facility] [address] [address] [facility]ITALRW[facility] [place] [facility] CBC AND DIFF (AUTO) ERYTHROCYTE S [#/VOLUME] IN BLOOD BY AUTOMATED COUNT 5.54 10*6/u L 4.23 - 5.66 09/17 Specimen Type: BLOOD No comment entered. Ordering Provider: JOSHUA ESTEBAN Report Released Date/Time: March 19, 2023 04:54 PM Reporting Lab: [facility] [place] [place] [address] [address] Performing Lab: [facility] [place] [place] [address] [address] [facility]N [place] [facility] CBC AND DIFF (AUTO) HEMOGLOBIN [MASS/VOLUM E] IN BLOOD 14.9 g/dL 12.8 - 17 09/17 Specimen Type: BLOOD No comment entered. Ordering Provider: JOSHUA ESTEBAN Report Released Date/Time: March 19, 2023 04:54 PM Reporting Lab: [facility] [place] [address] [address] Performing Lab: [facility] [place] [facility] [address] [facility] [address] [facility] [place] [facility] CBC AND DIFF (AUTO) HEMATOCRIT [VOLUME FRACTION] OF BLOOD BY AUTOMATED COUNT 45.1 39.2 - 50.4 09/17 Specimen Type: BLOOD No comment entered. Ordering Provider: JOSHUA ESTEBAN Report Released Date/Time: March 19, 2023 04:54 PM Reporting Lab: [facility] [place] [place] [facility] [address] [facility] [address] Performing Lab: [facility] [place] [place] [facility] [address] [facility] [address] [facility]TRN [place] [facility] CBC AND DIFF (AUTO) MCV [ENTITIC VOLUME] BY AUTOMATED COUNT 81.4 fL 82 - 99 09/17 L Specimen Type: BLOOD No comment entered. Ordering Provider: JOSHUA ESTEBAN Report Released Date/Time: March 19, 2023 04:54 PM Reporting Lab: [facility] [place] [place] [facility] [address] [facility] [address] Performing Lab: [facility] [place] [facility] [address] [facility] [address] [facility] [place] [facility] CBC AND DIFF (AUTO) MCHC [MASS/VOLUM E] BY AUTOMATED COUNT 33.0 g/dL 30.8 - 35.1 09/17 Specimen Type: BLOOD No comment entered. Ordering Provider: JOSHUA ESTEBAN Report Released Date/Time: March 19, 2023 04:54 PM Reporting Lab: [facility] [place] [place] [facility] [address] [facility] [address] Performing Lab: [facility] [place] [place] [address] [address] [facility]ITALR[facility] [facility] CBC AND DIFF (AUTO) PLATELETS [#/VOLUME] IN BLOOD BY AUTOMATED COUNT 294 10*3/u L 140 - 360 09/17 Specimen Type: BLOOD No comment entered. Ordering Provider: JOSHUA ESTEBAN Report Released Date/Time: March 19, 2023 04:54 PM Reporting Lab: [facility] [place] [facility] [address] [facility] [address] Performing Lab: [facility] [place] [facility] [address] [facility] [address] [facility] [place] [facility] CBC AND DIFF (AUTO) ERYTHROCYTE DISTRIBUTIO N WIDTH [RATIO] BY AUTOMATED COUNT 13.9 12.0 - 16.0 09/17 Specimen Type: BLOOD No comment entered. Ordering Provider: JOSHUA ESTEBAN Report Released Date/Time: March 19, 2023 04:54 PM Reporting Lab: [facility] [place] [facility] [address] [facility] [address] Performing Lab: [facility] [facility] [address] [facility] [address] [facility] [place] [facility] CBC AND DIFF (AUTO) MONOCYTES [#/VOLUME] IN BLOOD BY AUTOMATED COUNT 0.96 10*3/u L 0.30 - 1.10 09/17 Specimen Type: BLOOD No comment entered. Ordering Provider: JOSHUA ESTEBAN Report Released Date/Time: March 19, 2023 04:54 PM Reporting Lab: [facility] [place] [facility] [address] [facility] [address] Performing Lab: [facility] [facility] [address] [facility] [address] [facility] [place] [facility] CBC AND DIFF (AUTO) MCH [ENTITIC MASS] BY AUTOMATED COUNT 26.9 pg 26.2 - 32.6 09/17 Specimen Type: BLOOD No comment entered. Ordering Provider: JOSHUA ESTEBAN Report Released Date/Time: March 19, 2023 04:54 PM Reporting Lab: [facility] [place] [facility] [address] [facility] [address] Performing Lab: [facility] [place] [address] [address] [facility] [place] [facility] CBC AND DIFF (AUTO) NEUTROPHILS /100 LEUKOCYTES IN BLOOD BY AUTOMATED COUNT 76.1 43.7 - 75.8 09/17 H Specimen Type: BLOOD No comment entered. Ordering Provider: JOSHUA ESTEBAN Report Released Date/Time: March 19, 2023 04:54 PM Reporting Lab: [facility] [place] [facility] [address] [facility] [address] Performing Lab: [facility] [place] [facility] [address] [facility] [address] [facility] [place] [facility] CBC AND DIFF (AUTO) LYMPHOCYTES /100 LEUKOCYTES IN BLOOD BY AUTOMATED COUNT 13.8 14.0 - 42.3 09/17 L Specimen Type: BLOOD No comment entered. Ordering Provider: JOSHUA ESTEBAN Report Released Date/Time: March 19, 2023 04:54 PM Reporting Lab: [facility] [place] [facility] [address] [facility] [address] Performing Lab: [facility] [place] [facility] [address] [facility] [address] [facility] [place] [facility] CBC AND DIFF (AUTO) MONOCYTES/1 00 LEUKOCYTES IN BLOOD BY AUTOMATED COUNT 8.2 5.1 - 13.7 09/17 Specimen Type: BLOOD No comment entered. Ordering Provider: JOSHUA ESTEBAN Report Released Date/Time: March 19, 2023 04:54 PM Reporting Lab: [facility] [place] [facility] [address] [facility] [address] Performing Lab: [facility] [place] [facility] [address] [facility] [address] [facility] [place] [facility] CBC AND DIFF (AUTO) EOSINOPHILS /100 LEUKOCYTES IN BLOOD BY AUTOMATED COUNT 1.1 0.4 - 6.8 09/17 Specimen Type: BLOOD No comment entered. Ordering Provider: JOSHUA ESTEBAN Report Released Date/Time: March 19, 2023 04:54 PM Reporting Lab: [facility] [place] [facility] [address] [facility] [address] Performing Lab: [facility] [place] [facility] [address] [facility] [address] [facility] [place] [facility] CBC AND DIFF (AUTO) BASOPHILS/1 00 LEUKOCYTES IN BLOOD BY AUTOMATED COUNT 0.5 0.1 - 2.0 09/17 Specimen Type: BLOOD No comment entered. Ordering Provider: JOSHUA ESTEBAN Report Released Date/Time: March 19, 2023 04:54 PM Reporting Lab: [facility] [place] [address] [address] Performing Lab: [facility] [place] [address] [address] [facility] [place] [facility] CBC AND DIFF (AUTO) NEUTROPHILS [#/VOLUME] IN BLOOD BY AUTOMATED COUNT 8.91 10*3/u L 2.20 - 7.60 09/17 H Specimen Type: BLOOD No comment entered. Ordering Provider: JOSHUA ESTEBAN Report Released Date/Time: March 19, 2023 04:54 PM Reporting Lab: [facility] [place] [address] [address] Performing Lab: [facility] [place] [address] [address] [facility] [place] [facility] CBC AND DIFF (AUTO) LYMPHOCYTES [#/VOLUME] IN BLOOD BY AUTOMATED COUNT 1.62 10*3/u L 1.00 - 3.20 09/17 Specimen Type: BLOOD No comment entered. Ordering Provider: JOSHUA ESTEBAN Report Released Date/Time: March 19, 2023 04:54 PM Reporting Lab: [facility] [address] [address] Performing Lab: [facility] [place] [address] [address] [facility] CBC AND DIFF (AUTO) EOSINOPHILS [#/VOLUME] IN BLOOD BY AUTOMATED COUNT 0.13 10*3/u L 0.03 - 0.44 09/17 Specimen Type: BLOOD No comment entered. Ordering Provider: JOSHUA ESTEBAN Report Released Date/Time: March 19, 2023 04:54 PM Reporting Lab: [facility] [address] [address] Performing Lab: [facility] [place] [facility] [address] [facility] [address] [facility] [place] CBC AND DIFF (AUTO) BASOPHILS [#/VOLUME] IN BLOOD BY AUTOMATED COUNT 0.06 10*3/u L 0.01 - 0.13 09/17 Specimen Type: BLOOD No comment entered. Ordering Provider: JOSHUA ESTEBAN Report Released Date/Time: March 19, 2023 04:54 PM Reporting Lab: [facility] [place] [facility] [address] [facility] [address] Performing Lab: [facility] [place] [facility] [address] [facility] [address] [facility] [facility] CBC AND DIFF (AUTO) IMMATURE GRANULOCYTE S/100 LEUKOCYTES IN BLOOD BY AUTOMATED COUNT 0.3 0.0 - 0.7 09/17 Specimen Type: BLOOD No comment entered. Ordering Provider: JOSHUA ESTEBAN Report Released Date/Time: March 19, 2023 04:54 PM Reporting Lab: [facility] [place] [facility] [address] [facility] [address] Performing Lab: [facility] [place] [facility] [address] [facility] [address] [facility] [place] [facility] CBC AND DIFF (AUTO) IMMATURE GRANULOCYTE S [#/VOLUME] IN BLOOD 0.04 10*3/u L 0.00 - 0.06 09/17 Specimen Type: BLOOD No comment entered. Ordering Provider: JOSHUA ESTEBAN Report Released Date/Time: March 19, 2023 04:54 PM Reporting Lab: [facility] [place] [facility] [address] [facility] [address] Performing Lab: [facility] [place] [address] [address] [facility] [facility] Encounters Combined list of: 1) Encounters [...] [facility] Encounter [id number] 09/05 [facility] [place] [facility] O/P EST MOD 30-39 MIN [id number] Diagnos is: ICD-10- CM M54.59 Other low back pain Zaheer ESTEBAN 09/17 [facility] En[facility] [id number] 09/19 [facility] En[facility] [id number] 09/24 [facility] Encounter [id number] 09/26 [facility] Encounter [id number] 09/26 [facility] Out[facility] Encounter [id number] 09/26 [facility] Encounter [id number] 09/30 [facility] Encounter [id number] 10/02 [facility] [place] Outpatient Encounter [id number] 10/06 [facility] OFFICE O/P EST HI 40-54 MIN [id number] Diagnos is: ICD-10- CM F43.12 Post-tr aumatic stress disorde r, chronic ST TYRA GABRIEL G 10/13 [place] [facility] Out[facility] Encounter [id number] 11/03 [facility] [place] Outpatient Encounter [id number] 63 12/18 [place] Encounter [id number] Diagnos is: ICD-10- CM F43.12 Post-tr aumatic stress disorde r, chronic ST TYRA GABRIEL G 12/18 [place] [facility] Out[facility] Encounter [id number] 12/22 [facility] Encounter [id number] 02/11 [facility] Encounter [id number] 02/19 [facility] OFFICE O/P NEW LOW 30 MIN [id number] Diagnos is: ICD-10- CM G47.33 Obstruc tive sleep apnea (adult) (pediat sarah) PRISCA KEYES CTORIA J 02/22 [facility] Encounter [id number] 02/22 [facility] Encounter [id number] 03/26 [facility] [place] Outpatient Encounter [id number] 03/29 [place] OFFICE O/P EST HI 40 MIN [id number] Diagnos is: ICD-10- CM F43.12 Post-tr aumatic stress disorde r, chronic ST TYRA GABRIEL G 04/01 [facility] Out[facility] Encounter [id number] 04/23 [facility] ORAL DEVICE/RODDY LIANCE CUSFAB [id number] Diagnos is: ICD-10- CM G47.33 Obstruc tive sleep apnea (adult) ([facility] sarah) PRISCA KEYES [place] J 04/26 [facility] Out[facility] Encounter [id number] 06/01 [facility] OFFICE O/P EST LOW 20 MIN [id number] Diagnos is: ICD-10- CM G47.33 Obstruc tive sleep apnea (adult) ([facility] sarah) PRISCA KEYES [place] J 06/02 [facility] Out[facility] Encounter [id number] 07/12 [facility] OFFICE O/P EST LOW 20 MIN [id number] Diagnos is: ICD-10- CM G47.33 Obstruc tive sleep apnea (adult) ([facility] sarah) PRISCA KEYES CT[place] J 07/13 [facility] OFFICE O/P EST LOW 20 MIN [id number] Diagnos is: ICD-10- CM G47.33 Obstruc tive sleep apnea (adult) ([facility] sarah) PRISCA KEYES CT[place] J 07/14 [facility] Out[facility] Encounter [id number] 07/15 [facility] Out[facility] Encounter [id number] [facility] OFFICE O/P EST LOW 20 MIN [id number] Diagnos is: ICD-10- CM G47.33 Obstruc tive sleep apnea (adult) ([facility]) PRISCA KEYES CTORIA J 07/27 [facility] Out[facility] Encounter [id number] 07/29 [facility] OFFICE O/P EST MOD 30 MIN [id number] 1BY. 12 Diagnos is: ICD-10- CM F43.12 Post-tr aumatic stress disorde r, chronic GABRIEL,ST EPHEN G 08/05 [facility] Outpatient Encounter [id number] 09/21 [facility] Out[facility] Encounter [id number] 09/24 [facility] Outpatient Encounter [id number] [facility] Outpatient Encounter [id number] 10/08 [facility] [place] OFF[place] O/P EST MOD 30 MIN [id number] Diagnos is: ICD-10- CM F43.12 Post-tr aumatic stress disorde r, chronic HARVEY,ST MARY G 10/11 [place] [facility] COMPREHENS VE ORAL EVALUATION [id number] 1. Diagnos is: ICD-10- CM G47.33 Obstruc tive sleep apnea (adult) ([facility] sraah) PRISCA KEYES CTORIA J 10[facility]11 [facility] Out[facility]counter [id number] 1.10/26 [facility] CASE MGMT-ORAL HEALTH LIT [id number] 1. Diagnos is: ICD-10- CM K03.6 Deposit s [accret ions] on teeth JENNIFER,JOHNNA DINORAH K 10/27 [facility] OFF[facility] O/P EST LOW 20 MIN [id number] Diagnos is: ICD-10- CM G47.33 Obstruc tive sleep apnea (adult) (pediat sarah) PRISCA KEYES [place] J 11/02 [facility] Out[facility] Encounter [id number] [facility] Out[facility] Encounter [id number] [facility] Outpatient Encounter [id number] 11/22 [facility] SYNCH AUDIO-ONLY EST LOW 20 [id number] Diagnos is: ICD-10- CM F43.12 Post-tr aumatic stress disorde r, chronic ST TYRA GABRIEL G 12/02 [facility] [place] Outpatient Encounter [id number] 12/02 [facility] [place] [facility] Outpatient Encounter [id number] Sandra DAMIAN H 12/09 [facility] FEE [id number] Diagnos is: ICD-10- CM G47.30 Sleep apnea, unspeci fied Justus MAGALLON 12/23 [facility] (631GE) SLEEP STUDY UNATT&RESP EFFT [id number] Diagnos is: ICD-10- CM G47.30 Sleep apnea, unspeci fied VIDAFRANCISCO JAVIER SARAH 12/23 [facility] (631GE) [facility] RESIN TWO SURFACES-A NTERIOR [id number] Diagnos is: ICD-10- CM K03.0 Excessi ve attriti on of teeth PRISCA KEYES CTORIA J 12/30 [facility] [place] [place] [facility] [place] [place] [facility] Outpatient Encounter [id number] 01/11 [facility] [place] [place] [facility] SLEEP STUDY UNATT&RESP EFFT [id number] 20 Diagnos is: ICD-10- CM R06.83 Snoring VIDA,FREDE SARAH 01/13 [facility] OFFICE O/P EST MOD 30 MIN [id number] Diagnos is: ICD-10- CM F43.12 Post-tr aumatic stress disorde r, chronic ST TYRA GABRIEL G 01/20 [facility] SLEEP STUDY UNATT&RESP EFFT [id number] Diagnos is: ICD-10- CM G47.30 Sleep apnea, unspeci fied MAYOIOSO-UYIN ToddVICTORIA 02/08 [facility] Outpatient Encounter [id number] CASIMIRO SEVILLA 02/27 [facility] [place] 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 Social History Type Response Date Comment Sourc e Tobacco smoking status NHIS VA-TOBACCO NEVER USED 11/20/2022 [facility] D History of tobacco use VA-TOBACCO NEVER USED 11/26/2021 [facility] D History of tobacco use VA-TOBACCO NEVER USED 04/21/2020 [facility] [place] [facility] Plan of Care List of future care activities from Department of Veterans Affairs facilities. Additional future care activities may be listed in the Assessment and Plan section. Date/Time Care Activity Care Activity Detail Facili ty 03/10/2025 AMBULATORY - PSYCHIATRY AMBULATORY - PS[facility]C [facility]
--- OUTSIDE RECORDS SUMMARY | 2025-03-03 14:00 | XMS_ITS | Encounter Summary ---
Author Name [facility] [place] [facility] [place] [facility] [place] Address [address] [place] [address] Support Name Relationship Address Phone LEIGHTON ALLEN Next of Kin [address] [place] [address] LEIGHTON ALLEN Emergency Contact [address] [place] [address] Care Team Providers Care Podiatric Aide Name Role Phone GINA SEVILLA Primary Care Provider Unavailab le Insurance [...] [facility] Aug 17, 2020 [id number] ALLEN,CAR LOS PATIENT [place] ([place]) PREFERRED PROVIDER ORGANIZAT ION (PPO) [facility] Aug 17, 2020 [id number] [phone] ALLEN,CAR LOS PATIENT [facility] PRES[facility] Aug 17, 2020 [id number] ALLEN,CAR LOS PATIENT [place] PRES[facility] Aug 17, 2020 [id number] [phone] ALLEN,CAR LOS PATIENT Selected Encounter This section includes the information on record at [place] for the Encounter. Date/Time Encounter Type Encounter Description Reason Provider Source Feb 27, 2025 09:59 AM Outpatient Encounter PRIMARY CARE/MEDICINE GINA SEVILLA Encounter Template Text not used by [place] Plan of Treatment: Future Appointments (+ 6 months) and Future Tests (+/- 45 days) The Plan of Treatment section includes future care activities for the patient from all [place] treatmentfacilities. This section includes future appointments and [...] 10, 2025 08:30 AM AMBULATORY - PSYCHIATRY [facility] April 12, 2025 09:30 AM AMBULATORY - MEDICINE [facility] [place] [facility] Apr 26, 2025 03:00 PM [facility] - NONE [facility] Social History: Smoking Status (Most current) [...] 21, 2020 02:14 PM [facility] Encounter Notes: All associated encounter notes This section contains the clinical notes associated to the Encounter. Date/Time Encounter Note(s) Provider Source Feb 28, 2025 11:36 AM ADDENDUM: LOCAL TITLE: Addendum STANDARD TITLE: ADDENDUM DATE OF NOTE: FEB 28, 2025@11:36:17 ENTRY DATE: FEB 28, 2025@11:36:18 AUTHOR: GINA SEVILLA COSIGNER: URGENCY: STATUS: COMPLETED Please let vet know, when compared to prior study, there was no significant change. Thanks! /mercedes/ GINA SEVILLA NP NURSE PRACTITIONER Signed: 02/28/2025 11:36 Receipt Acknowledged By: 02/28/2025 11:44 /mercedes/ CHERELLE RANDHAWA,RN-BC REGISTERED NURSE (RN) ========= --- Original Document --- 02/28/25 PRIMARY CARE SECURE MESSAGING: ------Original Message -------- Sent: 02/27/2025 10:16 AM ET From: DENISSE ALLEN To: Vijay SEVILLA_PRIMARY CARE_[facility] Subject: Test:Test Message Was it more severe than the previous test, or are there signs of improvement? /mercedes/ TRENT PERALTA Signed: 02/28/2025 07:22 Receipt Acknowledged By: 02/28/2025 09:21 /mercedes/ PADILLA CUELLAR LPN LPN 02/28/2025 08:59 /mercedes/ CHERELLE RANDHAWA,RN-BC REGISTERED NURSE (RN) 02/28/2025 ADDENDUM STATUS: COMPLETED To provider to advise. /CHERELLE Faustin,RN-BC REGISTERED NURSE (RN) Signed: 02/28/2025 08:59 Receipt Acknowledged By: 02/28/2025 11:36 /mercedes/ GINA SEVILLA NP NURSE PRACTITIONER [facility]ILL[facility] Feb 28, 2025 08:59 AM ADDENDUM: LOCAL TITLE: Addendum STANDARD TITLE: ADDENDUM DATE OF NOTE: FEB 28, 2025@08:59:10 ENTRY DATE: FEB 28, 2025@08:59:11 AUTHOR: FERNANDO LOZA EXP COSIGNER: URGENCY: STATUS: COMPLETED To provider to advise. /CHERELLE Faustin,RN-BC REGISTERED NURSE (RN) Signed: 02/28/2025 08:59 Receipt Acknowledged By: 02/28/2025 11:36 /mercedes/ GINA SEVILLA NP NURSE PRACTITIONER ========= --- Original Document --- 02/28/25 PRIMARY CARE SECURE MESSAGING: ------Original Message -------- Sent: 02/27/2025 10:16 AM ET From: DENISSE ALLEN To: Bertrand SEVILLAPRIMARY CARE_[facility] Subject: Test:Test Message Was it more severe than the previous test, or are there signs of improvement? /es/ TRENT PERALTA Signed: 02/28/2025 07:22 Receipt Acknowledged By: 02/28/2025 09:21 /es/ PADILLA CUELLAR LPN LPN 02/28/2025 08:59 /mercedes/ CHERELLE RANDHAWA,RN-BC REGISTERED NURSE (RN) 02/28/2025 ADDENDUM STATUS: UNSIGNED You may not VIEW this UNSIGNED Addendum. FERNADNO LOZA [facility] [facility] Feb 28, 2025 07:22 AM PRIMARY CARE SECUR E MESSAGING: LOCAL TITLE: PRIMARY CARE SECURE MESSAGING STANDARD TITLE: PRIMARY CARE SECURE MESSAGING DATE OF NOTE: FEB 28, 2025@07:22 ENTRY DATE: FEB 28, 2025@07:22:02 AUTHOR: TRENT REDDY EXP COSIGNER: URGENCY: STATUS: COMPLETED PRIMARY CARE SECURE MESSAGING Has ADDENDA ------Original Message -------- Sent: 02/27/2025 10:16 AM ET From: DENISSE ALLEN To: Bertrand [facility] Subject: Test:Test Message Was it more severe than the previous test, or are there signs of improvement? /aaron PERALTA Signed: 02/28/2025 07:22 Receipt Acknowledged By: 02/28/2025 09:21 /mercedes/ PADILLA CUELLAR LPN LPN 02/28/2025 08:59 /CHERELLE Faustin,RN-BC REGISTERED NURSE (RN) 02/28/2025 ADDENDUM STATUS: COMPLETED To provider to advise. /CHERELLE Faustin,RN-BC REGISTERED NURSE (RN) Signed: 02/28/2025 08:59 Receipt Acknowledged By: 02/28/2025 11:36 /mercedes/ GINA SEVILLA, [employer]ER[employer] NURSE PRACTITIONER 02/28/2025 ADDENDUM STATUS: COMPLETED Please let vet know, when compared to prior study, there was no significant change. Thanks! /aaron SEVILLA NP NURSE PRACTITIONER Signed: 02/28/2025 11:36 Receipt Acknowledged By: 02/28/2025 11:44 /CHERELLE Faustin,RN-BC REGISTERED NURSE (RN) 02/28/2025 ADDENDUM STATUS: COMPLETED Replied to vet via secure messaging. /CHERELLE Faustin,RN-BC REGISTERED NURSE (RN) Signed: 02/28/2025 11:44 TRENT REDDY [facility] [place] [facility] Feb 27, 2025 09:59 AM PRIMARY CARE SECUR E MESSAGING: LOCAL TITLE: PRIMARY CARE SECURE MESSAGING STANDARD TITLE: PRIMARY CARE SECURE MESSAGING DATE OF NOTE: FEB 27, 2025@09:59 ENTRY DATE: FEB 27, 2025@09:59:57 AUTHOR: GINA SEVILLA COSIGNER: URGENCY: STATUS: COMPLETED ------Original Message -------- Sent: 02/27/2025 09:59 AM ET From: GINA SEVILLA To: TIFFANY DENISSE MARQUES Subject: Test:Test Message HI Mr. Allen, Your recent sleep study showed continued obstructive sleep apnea while using your dental device. Snoring was detected during the study. Please contact Dental to schedule a follow up appointment for a possible readjustment of your dental device. Have a good day. Respectfully, Gina Sevilla NP /mercedes/ GINA SEVILLA NP NURSE PRACTITIONER Signed: 02/27/2025 09:59 GINA SEVILLA [facility]
--- OUTSIDE RECORDS SUMMARY | 2025-03-03 14:00 | XMS_ITS ---
Author Organization [facility] Address [address] [address] Care Team Providers Care Personnel Psychologist Name Role Phone Nena Ortiz Primary Care Provider [phone] REASON FOR VISIT 3 week f/u Encounters Encounter Location Date Provider Diagnosis [facility] [address] [facility] [address] [place] [address] 01/11/2025 Nena Ortiz Plan Of Treatment No Information Progress Notes * Feliciano ALLENsDOB:1990 (34 yo M)Acc No.[id number]:01/11/2025 Progress Notes Patient:?Thuan ALLEN Provider:?Nena Ortiz MD :1990???Age:34 Y???Sex:Male [place] e:01/11/2025 Address:[facility] [address] [id number] Subjective: * Chief Complaints: * ???1. 3 week f/u. * Medical History:? Objective: * Vitals:? Assessment: Plan: * Treatment: * * Electronic signature of Tk Ortiz MD on 03/03/2025 at 01:59 PM EDT Sign off status: Pending * Provider:?Nena Ortiz MD Date:?12/19 Generated for Cassyi tamika/Barbra/eTransmitting on:?03/03/2025 01:59 PM EDT
== END 2025-03-03 12:27 | disposition home or self-care (01) ==
LOC: HO.HMCH 11:18
PROVIDERS: PCP Internal Medicine; Visit Provider Internal Medicine
DX: J02.0 Streptococcal pharyngitis (principal)

== ENCOUNTER → 2025-03-03 11:18 | Outpatient (BNVA) | payer BC, SELFPAY | PROVIDERS: PCP Internal Medicine; Visit Provider Internal Medicine ==

== ENCOUNTER → 2025-04-12 13:44 | Outpatient (BNVA) | payer BC, SELFPAY | PROVIDERS: PCP Internal Medicine; Visit Provider Urology ==

== ENCOUNTER 2025-05-06 07:57 | Outpatient (AMB) | payer BC, SELFPAY ==
--- OUTSIDE RECORDS SUMMARY | 2025-05-06 08:00 | XMS_ITS | Clinical Summary ---
Author Organization [facility] Address [address] [place] [address] Care Team Providers Care Psychology Department Chair Name Role Phone Rosamaria Sam MD Primary Care Provider [phone] Allergies No known active allergies Medications No [...] 94 07/03/2024 9:31 AM EDT Temperature 37 C (98.6 F) 07/03/2024 9:31 AM EDT Respiratory Rate 20 [...] ( season) 2024 08/16/2021, 07/26/2021 Influenza Vaccine (Season Ended) 2025 10/28/2022, 2021, 01/05/2021, Additional history exists Hepatitis B Vaccines Completed 08/20/2014, 09/13/2013, 07/30/2013 Pneumococcal Vaccine Aged Out No long er eligible based on patient's age to complete this topic RSV Ped < 20 months Aged Out No longe r eligible based on patient's age to complete this topic Care Teams Psychology Department Chair Relationship Specialty Start Date End Date Po, Rosamaria Jerome MD [address] [place] [address] [address] [facility] [place] [address] PCP - General Internal Medicine 07/03/24
[2025-05-06 08:03] VITALS: BP 140/80; PULSE 81; O2SAT 96; BMI 40.3
--- NOTE | 2025-05-06 08:03 | MHC.OFFVIS ---
Vital Signs 05/06/25 08:03 Height 6 ft Weight 297 lb BMI 40.3 BP 140/80 H Blood Pressure Location Rt brachial Position Sitting Pulse 81 Pulse Source Pulse Oximeter Pulse Oximetry (%) 96 Oxygen Delivery Method Room Air Intake Visit Reasons: 6 month F/U Intake Note: Patient presents 6 month follow up for migraines/ CHARLES. Not on CPAP Manager Speech Required: No Allergies No Known Allergies Allergy (Verified 05/06/25 08:08) Medication List - Last Reconciled 05/06/25 by TINA Staley acetaminophen 1,000 mg (2 x 500 mg) PO Q6H PRN albuterol sulfate 90 mcg/actuation 2 puffs inhalation Q6H PRN amitriptyline 10 - 20 mg (1 - 2 x 10 mg) PO BEDTIME 30 days ibuprofen 800 mg PO Q8H PRN penicillin V potassium 500 mg PO BID 10 days sertraline 25 mg PO DAILY HPI Comments Details: 33-yr-old male presents for f/u visit. Pt denies any significant interval medical changes. Pt is having 2-3 migraine headache days per week. He can still be quite photophobic and phonophobia. The Ubrelvy helps well, if he takes it at the 1st sign of the headache. He does also use the rizatriptan as needed. He is better about carrying his ask the medication with him. He can still feel groggy in the am, which he thinks may be r/t his mild CHARLES. He did not [facility] tx, [facility]. Baseline headache characteristics: Baseline headache characteristics: Aura: Rarely- sees random spots coming and going. Severe, Starts with eye discomfort (a funny feeling). Holocranial or right sided throbbing pain a/w Photophobia, blurry vision, some photophobia, allodynia, nausea, some dizziness, brain fog, fatigued, worsening maribell tinnitus, activity intolerance. [facility] Medical History LFT elevation Asthma Morbid obesity Ankle sprain Vasectomy evaluation Anxiety about health Laceration of left thumb Headache Chronic migraine without aura COVID-19 virus infection Viral infection Ear pain, right Otitis media, right Daytime sleepiness Pharyngitis Otitis media Upper respiratory tract infection SOB (shortness of breath) Left carotid bruit Chest pain Puncture wound of finger of left hand IBS (irritable bowel syndrome) Lumbar disc disease Plantar fasciitis, bilateral Sciatic leg pain Tinnitus PTSD (post-traumatic stress disorder) Generalized anxiety disorder Obesity (BMI 30-39.9) Surgical History H/O vasectomy Family History Mother No problems noted. Father No problems noted. Daughter No problems noted. Son No problems noted. Daughter No problems noted. Brother No problems noted. Sister No problems noted. Sister No problems noted. Other Lupus Mental health disorder Social History Housing: House Alcohol intake: current Alcohol intake frequency: a few times a week Comment: 3x a week 2 drinks Patient Tobacco Use Status: Never used Tobacco Tobacco use type: Cigarette e-Cigarette/Vaping Use: Never Used Second Hand Smoke Exposure: No service: Yes Current occupational status: employed Cognitive needs: No Hearing needs: No Vision needs: Yes Physical Exam Vital Signs: Last Vital Signs Pulse 81 05/06/25 08:03 BP 140/80 H 05/06/25 08:03 Pulse Ox 96 05/06/25 08:03 Oxygen Delivery Method Room Air 05/06/25 08:03 BMI result Body Mass Index 40.3 Const General: cooperative and no acute distress Orientation/consciousness: patient oriented x3 Resp Effort & Inspection: normal respiratory effort and able to speak in complete sentences Neuro General: patient oriented x3 Cranial nerves: Yes CN's II-XII intact bilaterally Cognition (Neuro): normal cognition Psych Appearance: grossly normal Mental Status: mental status grossly normal Speech and movement: Normal speech and movement present Affect: normal affect Attitude: cooperative Assessment & Plan Assessment & Plan (1) Migraine with aura: Comment: Occassional migraine w/ aura- may see spots and has had right sided head numbness Code(s): G43.109 - Migraine with aura, not intractable, without status migrainosus Category: Medical Qualifiers: Status migrainosus presence: without status migrainosus Intractability: intractable Qualified Code(s): G43.119 - Migraine with aura, intractable, without status migrainosus (2) Obstructive sleep apnea (adult) (pediatric): Comment: CPAP 04/2022 cannot tolerate CPAP Code(s): G47.33 - Obstructive sleep apnea (adult) (pediatric) Category: Medical (3) Daytime sleepiness: Code(s): R40.0 - Somnolence Category: Medical Plan For overall headache management: Continue to optimize good self-care, including but not limited to maintaining a healthy diet, adequate fluid intake, adequate sleep, and engaging in regular physical activity. Track headaches. May try blue light filtering glasses, green glasses, green light therapy.. For sleep: Mandibulr device for tx of CHARLES. ? For acute headache treatment: Discussed importance of taking acute medications at the first sign of headache, however stressed importance of avoiding acute medication overuse. Pt advised to carry acute meds w/ him- use a keyring pillbox or carry a backpack w/ him. Continue Rizatripatn 10mg at onset of migraine, may repeat in 2 hrs (max 2 tabs per day or 6 tabs per week). May take with OTC Tylenol 650mg q 4 hours, Ibuprofen 600mg q 6 hours, or Naproxen 440mg q 12 hrs prn. Continue Ubrogepant (Ubrelvy) 100mg tab, 1/2 - 1 tab (50-100mg) at onset of headache, may repeat in 2 hours. Max of 2 tabs (200mg) per 24 hours. May adjunct with rizatriptan, or OTC Tylenol 650mg q 4 hours, Ibuprofen 600mg q 6 hours, or Naproxen 440mg q 12 hrs prn. Previous acute migraine medication trials: Sumatriptan- caused neck/facial numbness. Eletriptan- ineffective. Acute migraine medication contraindications: None at this time. ? For headache prevention medication: Continue Amitriptyline 10 mg daily at bedtime- can not increase further due to daytimes sleepiness symptoms. Start Ajovy 225mg/1.5ml autoinjector- injection 225mg subcutaneously once a month. Potential adverse effects of Ajovy include but are not limited to injection site reactions. Pt advised Ajovy will likely require insurance prior authorization. Ajovy should be refrigerated until 1 hr prior use. Once approved and available patient would like in office injection training. If Ajovy is effective, we will consider weaning patient off of amitriptyline in hopes this reduces daytime tiredness symptoms. Previous migraine prevention medication trials: Propranolol 10mg bid x's 8 wks- ineffective. Migraine prevention medication contraindications: Propranolol d/t asthma/SOBOE. ? Previously reviewed benefits of neuromodulation devices for acute and preventive treatment of migraine. GammaCore also has good evidence for treatment of PTSD in - he will considers. As pt is a , we can request coverage for Gamma Core or Nerivio through the [place]. ? Pt to follow-up in 6 months or sooner prn. Medications: New fremanezumab-vfrm (Ajovy) administer 225mg sc q month 225 mg (1.5 mL) subcut ONCE 1.5 mL 6RF 30 days Refilled rizatriptan May take w/ Ubrelvy. Max 2 tabs per day or 6 tabs per week 5 - 10 mg (0.5 - 1 x 10 mg) PO Q2H PRN 12 tabs 6RF migraine headache 21 days Discontinued penicillin V potassium Discontinued Reason: Patient Completed Course 500 mg PO BID 10 days 20 tabs 0RF Coding Level of Care Code Est Pt Level 4 (20959) Diagnoses Intractable migraine with aura without status migrainosus G43.119 Status migrainosus presence: without status migrainosus Intractability: intractable Obstructive sleep apnea (adult) (pediatric) G47.33 Daytime sleepiness R40.0
== END 2025-05-06 08:59 | disposition home or self-care (01) ==
LOC: HO.HSMS 07:58
PROVIDERS: PCP Internal Medicine; Visit Provider Nurse Practitioner Family
DX: G43.119 Migraine with aura, intractable, without status migrainosus (principal); G47.33 Obstructive sleep apnea (adult) (pediatric); R40.0 Somnolence
CPT/HCPCS: 99214

== ENCOUNTER → 2025-05-06 07:57 | Outpatient (BNVA) | payer BC, SELFPAY | PROVIDERS: PCP Internal Medicine; Visit Provider Nurse Practitioner Family ==

== ENCOUNTER 2025-05-13 12:31 | Outpatient (AMB) | payer BC, SELFPAY ==
--- NOTE | 2025-05-13 12:27 | A.OFFVIS_ITS ---
Intake Visit Reasons: FMLA Media Associate Required: No Accompanied by: Self / Same As Patient Allergies No Known Allergies Allergy (Verified 05/13/25 12:28) HPI Comments Details: 33-yr-old male presents for televideo visit to discuss FMLA paperwork for migraine. Patient reports he has never completed FMLA paperwork before. However times he needs to leave or miss work for 1-3 days due to a severe migraine attack. He states fortunately he works in alternating shift schedule, so if he is madeleine he has his migraine attacks on his days off. 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 States in the residential system, there are very few positions that do not require direct contact with inmates. He is awaiting prior authorization of the previously requested Ajovy. Pt denies any significant interval medical changes. Pt is having 2-3 migraine headache days per week. He can still be quite photophobic and phonophobia. The Ubrelvy helps well, if he takes it at the 1st sign of the headache. He does also use the rizatriptan as needed. He is better about carrying his ask the medication with him. He can still feel groggy in the am, which he thinks may be r/t his mild CHARLES. He did not tolerate PAP tx, but [facility]. Baseline headache characteristics: Baseline headache characteristics: Aura: Rarely- sees random spots coming and going. Severe, Starts with eye discomfort (a funny feeling). Holocranial or right sided throbbing pain a/w Photophobia, blurry vision, some photophobia, allodynia, nausea, some dizziness, brain fog, fatigued, worsening maribell tinnitus, activity intolerance. [facility] Medical History LFT elevation Asthma Morbid obesity Ankle sprain Vasectomy evaluation Anxiety about health Laceration of left thumb Headache Chronic migraine without aura COVID-19 virus infection Viral infection Ear pain, right Otitis media, right Daytime sleepiness Pharyngitis Otitis media Upper respiratory tract infection SOB (shortness of breath) Left carotid bruit Chest pain Puncture wound of finger of left hand IBS (irritable bowel syndrome) Lumbar disc disease Plantar fasciitis, bilateral Sciatic leg pain Tinnitus PTSD (post-traumatic stress disorder) Generalized anxiety disorder Obesity (BMI 30-39.9) Surgical History H/O vasectomy Family History Mother No problems noted. Father No problems noted. Daughter No problems noted. Son No problems noted. Daughter No problems noted. Brother No problems noted. Sister No problems noted. Sister No problems noted. Other Lupus Mental health disorder Social History Housing: House Alcohol intake: current Alcohol intake frequency: a few times a week Comment: 3x a week 2 drinks Patient Tobacco Use Status: Never used Tobacco Tobacco use type: Cigarette e-Cigarette/Vaping Use: Never Used Second Hand Smoke Exposure: No service: Yes Current occupational status: employed Cognitive needs: No Hearing needs: No Vision needs: Yes Physical Exam Const General: cooperative and no acute distress Orientation/consciousness: patient oriented x3 Resp Effort & Inspection: normal respiratory effort and able to speak in complete sentences Neuro General: patient oriented x3 Cognition (Neuro): normal cognition Psych Appearance: grossly normal Mental Status: mental status grossly normal Speech and movement: Normal speech and movement present Affect: normal affect Attitude: cooperative Telehealth Telehealth Telehealth Platform: [facility] Location of provider rendering services: practice address Location of patient: address on file Patient Identification confirmed using: Name, : Yes Telehealth method: video Patient verbally consented to treatment: Yes Patient verbally consented to billing insurance company: Yes Patient informed of any privacy concerns related to visit: Yes Minutes spent on Phone/Video with Pt.: 16 Assessment & Plan Assessment & Plan (1) Migraine with aura: Comment: Occassional migraine w/ aura- may see spots and has had right sided head numbness Code(s): G43.109 - Migraine with aura, not intractable, without status migrainosus Category: Medical Qualifiers: Status migrainosus presence: without status migrainosus Intractability: intractable Qualified Code(s): G43.119 - Migraine with aura, intractable, without status migrainosus (2) Obstructive sleep apnea (adult) (pediatric): Comment: CPAP 04/2022 cannot tolerate CPAP Code(s): G47.33 - Obstructive sleep apnea (adult) (pediatric) Category: Medical (3) Daytime sleepiness: Code(s): R40.0 - Somnolence Category: Medical Plan Workplace FMLA paperwork completed, allowing for medical leave of absence times 1 episode per week lasting to 3 days, for more severe migraine attack. Patient advised that we will follow-up on the Ajovy prior authorization. Reviewed general prior authorization processes, such as if Ajovy is effective, it will likely require a follow-up prior authorization renewal at time interval specified by his insurance. For overall headache management: Continue to optimize good self-care, including but not limited to maintaining a healthy diet, adequate fluid intake, adequate sleep, and engaging in regular physical activity. Track headaches. May try blue light filtering glasses, green glasses, green light therapy.. For sleep: Mandibulr device for tx of CHARLES. ? For acute headache treatment: Discussed importance of taking acute medications at the first sign of headache, however stressed importance of avoiding acute medication overuse. Pt advised to carry acute meds w/ him- use a keyring pillbox or carry a backpack w/ him. Continue Rizatripatn 10mg at onset of migraine, may repeat in 2 hrs (max 2 tabs per day or 6 tabs per week). May take with OTC Tylenol 650mg q 4 hours, Ibuprofen 600mg q 6 hours, or Naproxen 440mg q 12 hrs prn. Continue Ubrogepant (Ubrelvy) 100mg tab, 1/2 - 1 tab (50-100mg) at onset of headache, may repeat in 2 hours. Max of 2 tabs (200mg) per 24 hours. May adjunct with rizatriptan, or OTC Tylenol 650mg q 4 hours, Ibuprofen 600mg q 6 hours, or Naproxen 440mg q 12 hrs prn. Previous acute migraine medication trials: Sumatriptan- caused neck/facial numbness. Eletriptan- ineffective. Acute migraine medication contraindications: None at this time. ? For headache prevention medication: Continue Amitriptyline 10 mg daily at bedtime- can not increase further due to daytimes sleepiness symptoms. Start Ajovy 225mg/1.5ml autoinjector- injection 225mg subcutaneously once a month. Potential adverse effects of Ajovy include but are not limited to injection site reactions. Pt advised Ajovy will likely require insurance prior authorization. Ajovy should be refrigerated until 1 hr prior use. Once approved and available patient would like in office injection training. If Ajovy is effective, we will consider weaning patient off of amitriptyline in hopes this reduces daytime tiredness symptoms. Previous migraine prevention medication trials: Propranolol 10mg bid x's 8 wks- ineffective. Migraine prevention medication contraindications: Propranolol d/t asthma/SOBOE. ? Previously reviewed benefits of neuromodulation devices for acute and preventive treatment of migraine. GammaCore also has good evidence for treatment of PTSD in - he will considers. As pt is a , we can request coverage for Gamma Core or Nerivio through the [place]. ? Pt to follow-up in 6 months or sooner prn. Coding Level of Care Code Tele Est Pt Level 3 (36251) Diagnoses Intractable migraine with aura without status migrainosus G43.119 Status migrainosus presence: without status migrainosus Intractability: intractable Obstructive sleep apnea (adult) (pediatric) G47.33 Daytime sleepiness R40.0
--- OUTSIDE RECORDS SUMMARY | 2025-05-13 13:13 | XMS_ITS | Clinical Summary ---
Author Organization [facility] Address [address] [place] [address] Care Team Providers Care Glassware Finisher Name Role Phone Rosamaria Sam MD Primary Care Provider [phone] Allergies No known active allergies Medications No [...] age to complete this topic Care Teams Glassware Finisher Relationship Specialty Start Date End Date Po, Rosamaria Jerome MD [address] [place] [address] [address] [facility] [place] [address] PCP - General Internal Medicine 07/03/24
== END 2025-05-13 13:28 | disposition home or self-care (01) ==
PROVIDERS: PCP Internal Medicine; Visit Provider Nurse Practitioner Family
DX: G43.119 Migraine with aura, intractable, without status migrainosus (principal); G47.33 Obstructive sleep apnea (adult) (pediatric); R40.0 Somnolence
CPT/HCPCS: 99213

== ENCOUNTER 2025-06-02 08:57 | Outpatient (AMB) | payer BC, SELFPAY ==
--- OUTSIDE RECORDS SUMMARY | 2025-01-20 04:30 | XMS_ITS | Encounter Summary ---
Author Name [facility] [place] [facility] [place] Address [address] [place] [address] Support Name Relationship Address Phone TIFFANY LEIGHTON Next of Kin [address] [place] [address] LEIGHTON ALLEN Emergency Contact [address] [address] Care Team Providers Care Fingernail Sculptor Name Role Phone KYLAH CASILLAS Primary Care Provider Unavailabl e Insurance Providers: All historical and current Section [...] [place] DEPT OF COR Aug 17, 2020 [id number] [id number] ALLEN,CAR LOS PATIENT [place]BS [place] (BLUE CARD) PREFERRED PROVIDER ORGANIZAT ION (PPO) ST OF [facility] DEPT OF COR Aug 17, 2020 [id number] 00H [id number] ALLEN,CAR LOS PATIENT BCBS [place] (BLUECARD) PREFERRED PROVIDER ORGANIZAT ION (PPO) ST [place]PT OF [place] Aug 17, 2020 [id number] [phone] ALLEN,CAR LOS PATIENT CAREMARK PRESCRIPT ION [facility] Aug 17, 2020 [id number] ALLEN,CAR LOS PATIENT CAREMARK PRESCRIPT ION [place] Aug 17, 2020 [id number] ANDREA ALLEN PATIENT [place] PRESCRIPT ION STATE OF [facility] Aug 17, 2020 [id number] ANDREA ALLEN PATIENT Selected Encounter This section includes the information on record at [place] for the Encounter. Date/Time Encounter Type Encounter Description Reason Provider Source Jan 20, 2025 08:30 AM OFFICE O/P EST MOD 30 MIN [facility] - IND ICD-10-CM F43.12 Post-traumatic stress disorder, chronic ANTHONY GABRIEL Katie Encounter Template Text not used by [place] Assessments - Encounter Diagnoses This section includes the primary and secondary diagnoses documented for the Encounter. Date/Time Primary/Secondary Diagnosis Diagnosis Name Provider Source Jan 20, 2025 12:06 PM PRIMARY Post-traumatic stress disorder, chronic MIGUELITO GABRIEL Plan of Treatment: Future Appointments (+ 6 months) and Future Tests (+/- 45 days) The Plan of Treatment section includes future care activities for the patient from all [place] treatmentfaregional medical center. This section includes future appointments and future orders which are active, pending or scheduled. Future Appointments This section includes appointments that were scheduled to occur 6 months from the date of the Encounter, up to a maximum of 20 appointments. The data comes from all [place] treatment facilities. Appointment Date/Time Appointment Type Appointme nt Facility Name Mar 10, 2025 08:30 AM AMBULATORY - PSYCHIATRY [facility] March 23, 2025 11:30 AM AMBULATORY - PSYCHIATRY [facility] April 12, 2025 09:30 AM [facility]UL[facility] Apr 25, 2025 07:45 AM [facility]UL[facility] - MEDIC[place] [facility] [place] [facility] Apr 25, 2025 08:00 AM AMBULATORY - NONE [facility] Jun 09, 2025 11:30 AM [facility] [place] 20, 2022 01:00 PM [place]-TOBACCO [place] USED [place] Tobacco Use History This section includes a history of the smoking, or tobacco-related health factors, that were collected on or before the date of the Encounter. The data comes from the [place] facility where the Encounter took place. Date/Time Smoking Status/Tobacco Use Comment F acility Nov 26, 2021 11:30 AM [facility]-TOBACCO NEVER USED [place] Encounter Notes: All associated encounter notes This section contains the clinical notes associated to the Encounter. Date/Time Encounter Note(s) Provider Source Jan 20, 2025 08:34 AM TELEHEALTH NOTE: LOCAL TITLE: [place] VIDEO CONNECT PSYCHIATRIST NOTE STANDARD TITLE: TELEHEALTH NOTE DATE OF NOTE: JAN 20, 2025@08:34 ENTRY DATE: JAN 20, 2025@08:35:04 AUTHOR: MIGUELITO GABRIEL COSIGNER: URGENCY: STATUS: COMPLETED [facility] Video Connect (VVC) Standard Documentation VVC Clinician Resources Only: E911 (Emergency Call Relay Center): [phone] [facility] ([place], [place]) Crisis Line - 988 then press #1. [facility] Suicide Coordinator [phone], Ext. [phone]; Back-up Ext. [phone] [place] Police, JODI, Darryl [phone] Introduction: Visit is being conducted by [place] [facility]. [place] identified with 2 identifiers: [X] Full Name [X] Date of [ ] [place] ID Card Emergency Plan: confirmed and/or provided the following information in case of emergency or technology failure. PATIENT PHONE - PHONE NUMBER [CELLULAR] - Is patient phone number correct, if not, enter below: 's phone number: DENISSE ALLEN [address] [place] [address], [address] [place]'s present location and address for appointment: [facility] [place], [place] 's emergency contact name and phone number: chart [place] reported that location is private and safe: Yes Informed Consent: informed of the risks and benefits of Telehealth video care. [place] has the right to refuse video services. If refuses video visit, a scum-fw-wlls visit will be scheduled. verbalized consent for this video visit: Yes provided consent for any other persons present for visit: N/A If yes, who and relationship to patient: Secure visit: Visit was locked for security and privacy:Yes 30 min for encounter, including chart review, interview, charting chart reviewed see my 05/26/20 note for more hx Patient again relatively stable, with usual presentation today. But again ongoing stressors, but again managable. As noted in previous appts, pt again despite some ongoing symptoms, he [...] because in general he wants to minimize medication -- he is philosophically against more medication. Pt denies SI and violent ideation. Thoughts are well organized. Denies history of hallucinations. No paranoid or delusional content presented. Speech normal. Cognitive exam grossly normal. Has interests. Future oriented. Pleasant, talkative, good sense of humor. As noted previously, pt and his is main support; disciplinary hearing officer in [place] system Pt again reported decreased alcohol use (did not quantify), and he has not considered alcohol to be a problem. Denies street drugs Denies medication side effects. Denies daytime sedation. Reports compliance with Zoloft 25 mg daily. He again does not want higher dose Active problems - Computerized Problem List is the source for the followin. Exposure to potentially hazardous substance 2. Sleep apnea 3. Chronic Post-Traumatic Stress Disorder ([facility] [id number]) 4. Major depressive disorder 5. Comanagement 6. [...] denied suicidal and violent ideation, but the [facility] Crisis Line information and number were reviewed w patient as a precaution over the phone. The patient also understands to call 911 or to go to ER in the event of an emergency. Again, another discussion re psychotherapy (to help w coping w stressors) -- pt now has [facility] therapy consult pending for Giovani Plummerde [address] [place] [address] Phone/ (call this number) pt will call to set up appt Also has-- Ariane for couples therapy-- again, pt feels this helps when can set up. I again reviewed evidenced based psychotherapies for ptsd w pt. [facility], but the patient declines at this point, he will call if he changes his mind. At this point he wants to start seeing the CC therapist mentioned above CONTINUE ZOLOFT 25 MG DAILY for depression, [...] /mercedes/ MIGUELITO GABRIEL MD STAFF PSYCHIATRIST Signed: 01/20/2025 12:06 Receipt Acknowledged By: 01/20/2025 13:58 /mercedes/ CALI GUSTAFSON ADVANCED INDUSTRIAL SEAMSTRESS MIGUELITO GABRIEL
--- NOTE | 2025-06-02 09:00 | A.OFFPC_ITS ---
Vital Signs 06/02/25 09:01 Height 6 ft Weight 298 lb 2 oz BMI 40.4 BP 136/68 Blood Pressure Location Lt brachial Position Sitting Pulse 98 Pulse Source Pulse Oximeter Temp 97.1 F Temp Source Temporal Artery Scan Pulse Oximetry (%) 96 Oxygen Delivery Method Room Air Intake Visit Reasons: Annual Exam Allergies No Known Allergies Allergy (Verified 06/02/25 10:49) Medication List - Last Reconciled 06/02/25 by Rosamaria Sam MD acetaminophen 1,000 mg (2 x 500 mg) PO Q6H PRN albuterol sulfate 90 mcg/actuation 2 puffs inhalation Q6H PRN amitriptyline 10 - 20 mg (1 - 2 x 10 mg) PO BEDTIME 30 days fremanezumab-vfrm (Ajovy) 225 mg (1.5 mL) subcut ONCE 30 days ibuprofen 800 mg PO Q8H PRN rizatriptan 5 - 10 mg (0.5 - 1 x 10 mg) PO Q2H PRN 21 days sertraline 25 mg PO DAILY tirzepatide (weight loss) (Zepbound) 2.5 mg (0.5 mL) subcut QWEEK 4 weeks ubrogepant (Ubrelvy) 100 mg PO DAILY Tobacco use date assessed: 06/02/25 Dental Screening Dental Screen Date: 12/07/24 Did you have a dental visit in the last 12 months?: Yes Did you have a dental problem in the last 6 months where you did not have access to dental care?: No Was dental information given to patient?: Patient has dentist [facility] Medical History LFT elevation Asthma Morbid obesity Ankle sprain Vasectomy evaluation Anxiety about health Laceration of left thumb Headache Chronic migraine without aura COVID-19 virus infection Viral infection Ear pain, right Otitis media, right Daytime sleepiness Pharyngitis Otitis media Upper respiratory tract infection SOB (shortness of breath) Left carotid bruit Chest pain Puncture wound of finger of left hand IBS (irritable bowel syndrome) Lumbar disc disease Plantar fasciitis, bilateral Sciatic leg pain Tinnitus PTSD (post-traumatic stress disorder) Generalized anxiety disorder Obesity (BMI 30-39.9) Surgical History H/O vasectomy Family History Mother No problems noted. Father No problems noted. Daughter No problems noted. Son No problems noted. Daughter No problems noted. Brother No problems noted. Sister No problems noted. Sister No problems noted. Other Lupus Mental health disorder Social History Housing: House Alcohol intake: current Alcohol intake frequency: a few times a week Comment: 3x a week 2 drinks Patient Tobacco Use Status: Never used Tobacco Tobacco use type: Cigarette e-Cigarette/Vaping Use: Never Used Second Hand Smoke Exposure: No service: Yes Current occupational status: employed Cognitive needs: No Hearing needs: No Vision needs: Yes Questionnaire PHQ-9 Over the last 2 weeks, how often have you been bothered by any of the following problems? 1. Little interest or pleasure in doing things: more than half the days 2. Feeling down, depressed, or hopeless: more than half the days 3. Trouble falling or staying asleep, or sleeping too much: more than half the days 4. Feeling tired or having little energy: more than half the days 5. Poor appetite or overeating: more than half the days 6. Feeling bad about yourself - or that you are a failure or have let yourself or your family down: more than half the days 7. Trouble concentrating on things, such as reading the newspaper or watching television: more than half the days 8. Moving or speaking so slowly that other people could have noticed. Or the opposite - being so fidgety or restless that you have been moving around a lot more than usual: more than half the days 9. Thoughts that you would be better off or of hurting yourself in some way: not at all Total score: 16 Source: Developed by Drs. Harley Maloney, Ros Tadeo, Irwin Recinos and colleagues, with an educational sena from [employer]. Thrive Questionnaire Date Thrive assessed: 06/02/25 I am a: Patient What is your living situation today?: I choose not to answer this question Within the past 12 months, did the food you bought not last and you didn't have the money to get more?: I choose not to answer this question Within the past 12 months, did you worry whether your food would run out before you got money to buy more?: I choose not to answer this question Do you have trouble paying for medicines?: I choose not to answer this question Do you have trouble getting transportation to medical appointments?: I choose not to answer this question Do you have trouble paying your heating and electricity bill?: I choose not to answer this question Do you have trouble taking care of your child, family member or friend?: I choose not to answer this question Do you have trouble with day-to-day activities such as bathing, preparing meals, shopping, managing finances, etc.?: I choose not to answer this question Are you currently unemployed and looking for a job?: I choose not to answer this question Are you interested in more education?: I choose not to answer this question Please select the resources that you would like help with: None Currently or been in a relationship where the following occur: I choose not to answer THRIVE Score: 0 AUDIT C Alcohol Use Questionnaire (AUDIT-C) 1. How often do you have a drink containing alcohol?: 2-4 times a month 2. How many drinks containing alcohol do you have on a typical day when you are drinking?: 1 or 2 3. How often do you have six or more drinks on one occasion?: Less than monthly Total Score: 3 ARTURO-7 AMB Questionnaire ARTURO-7 Date ARTURO - 7 assessed: 12/07/24 Feeling nervous, anxious, or on edge: 3 = Nearly every day (Has therapist) Not being able to stop or control worryin = Nearly every day Worrying too much about different things: 3 = Nearly every day Trouble relaxin = Nearly every day Being so restless that it is hard to sit still: 3 = Nearly every day Becoming easily annoyed or irritable: 3 = Nearly every day Feeling afraid as if something awful might happen: 3 = Nearly every day Total ARTURO-7 score (0-4 normal; 5-9 mild; 10-14 moderate; 15-21 severe): 21 Source: Developed by Drs. Harley Maloney, Ros Tadeo, Irwin Recinos and colleagues, with an educational sena from [employer]. Review of Systems Const Denies poor appetite and Denies weakness Eyes Denies no additional complaints ENT Reports Normal hearing present, Denies dizziness, Denies nasal congestion, Denies tinnitus and Denies sore throat Card Denies chest pain, Denies syncope, Denies rapid heart rate and Denies dyspnea Resp Denies cough and Denies dyspnea GI Denies change in stool character, Reports constipation, Denies diarrhea, Denies nausea and Denies vomiting Denies dysuria and Denies urinary frequency Neuro Reports Normal hearing present, Denies confusion, Denies dizziness, Denies syncope and Denies weakness Psych Denies confusion Physical exam (Primary Care) Vital Signs: Last Vital Signs Temp 97.1 F 06/02/25 09:01 Pulse 98 06/02/25 09:01 BP 136/68 06/02/25 09:01 Pulse Ox 96 06/02/25 09:01 Oxygen Delivery Method Room Air 06/02/25 09:01 BMI result Body Mass Index 40.4 Tobacco/Smoking Status: Tobacco use Status Tobacco use date assessed 06/02/25 06/02/25 09:06 Patient Tobacco Use Status Never used Tobacco 06/02/25 09:06 Tobacco use type Cigarette 06/02/25 09:06 e-Cigarette/Vaping Use Never Used 06/02/25 09:06 PHQ-9: PHQ-9 Score PHQ-9: Total score 16 06/02/25 09:06 Thrive Assessment: Date of Thrive Assessment Date Thrive assessed 06/02/25 06/02/25 09:06 Currently or been in a relationship where the following occur: I choose not to answer Const General: No confusion Orientation/consciousness: No confusion HENMT Head: Yes normocephalic Ears: external ears normal and TM's normal bilaterally Face and sinus: Yes normal facial exam Mouth: moist mucous membranes Throat: Yes tonsils normal Eyes Conjunctivae: conjunctivae normal Pupils: Equal, round and reactive pupils present and Pupil accommodation reflex normal Direct Ophthalmoscopy: normal light reflex Neck Neck: No lymphadenopathy Thyroid: Thyroid normal Chest Chest palpation & inspection: normal inspection of the chest Resp Effort & Inspection: normal respiratory effort and no audible wheezes Auscultation: clear to auscultation bilaterally, no crackles, no wheezes and lung sounds not diminished Cardio Rate: regular rate Rhythm: regular rhythm Peripheral pulses: radial pulses present and dorsalis pedis present GI Palpation (GI): no masses Auscultation: normal bowel sounds and normoactive bowel sounds Rectal Exam - Male: Yes deferred Skin General skin exam: no rashes or lesions noted Rashes: no rashes Neuro General: No confusion Cranial nerves: Yes Equal, round and reactive pupils present and Yes Normal hearing present Cognition (Neuro): normal cognition Gait exam (Neuro): Normal gait present Motor exam (neuro): 5/5 motor strength present throughout Deep tendon reflexes (DTR's): Right brachioradialis reflex intensity grade: 2+, Left brachioradialis reflex intensity grade: 2+, Right patellar reflex intensity grade: 2+ and Left patellar reflex intensity grade: 2+ Extrem General: No edema Coding Level of Care Code Est Pt Prev Care 18-39y(67372) Diagnoses Annual physical exam Z00.00 Obstructive sleep apnea (adult) (pediatric) G47.33 Intractable migraine with aura without status migrainosus G43.119 Intractability: intractable Status migrainosus presence: without status migrainosus Hepatic steatosis K76.0 GERD (gastroesophageal reflux disease) K21.9 Morbid obesity E66.01 Impaired glucose tolerance R73.02 Generalized anxiety disorder F41.1 Assessment & Plan Assessment & Plan (1) Annual physical exam: Code(s): Z00.00 - Encounter for general adult medical examination without abnormal findings Category: Medical Plan: Patient is advised to eat healthy, keep well hydrated, keep active and have adequate sleep. (2) Obstructive sleep apnea (adult) (pediatric): Comment: CPAP 04/2022 cannot tolerate CPAP Code(s): G47.33 - Obstructive sleep apnea (adult) (pediatric) Category: Medical Plan: Discussed importance of obstructive sleep apnea treatment (3) Migraine with aura: Comment: Occassional migraine w/ aura- may see spots and has had right sided head numbness Code(s): G43.109 - Migraine with aura, not intractable, without status migrainosus Category: Medical Qualifiers: Intractability: intractable Status migrainosus presence: without status migrainosus Qualified Code(s): G43.119 - Migraine with aura, intractable, without status migrainosus Plan: Patient has been followed up with Neurology and has been given Ajovy rizatriptan (4) Hepatic steatosis: Comment: January 2025 Code(s): K76.0 - Fatty (change of) liver, not elsewhere classified Category: Medical Plan: Low-fat diet and exercise (5) GERD (gastroesophageal reflux disease): Code(s): K21.9 - Gastro-esophageal reflux disease without esophagitis Category: Medical Plan: Avoid the foods that causes that usually spicy foods, tomato products, juices, coffee, soda and foods that your sensitive to. After eating do not lie down, allow 3-4 hours before in lie down. And keep the head of bed above 30 degrees to avoid the acid from going up. (6) Morbid obesity: Code(s): E66.01 - Morbid (severe) obesity due to excess calories Category: Medical Plan: Diet and exercise patient has also met with the weight management. (7) Impaired glucose tolerance: Code(s): R73.02 - Impaired glucose tolerance (oral) Category: Medical Plan: Decrease the amount of carbohydrate intake, pasta, bread, rice and potatoes are all sugar and that is aside from all the sweet stuff, remember that fruits are good but they are Sweet also. (8) Generalized anxiety disorder: Comment: psychiatrist [place]- dr. Bradley Rogers Code(s): F41.1 - Generalized anxiety disorder Category: Medical Plan: Continue with counseling and therapy on sertraline and amitriptyline Plan History of Present Illness The patient is a 34-year-old male presenting for a physical examination and management of multiple chronic conditions. The patient has a history of morbid obesity, which has been managed with weight management consultations and medication trials, including Zepbound, which he pays for out of pocket. He was advised to monitor weight loss and adjust the medication dosage accordingly. The patient has gastroesophageal reflux disease (GERD) and experiences heartburn, for which he was prescribed famotidine but has not been consistent with medication use. Dietary modifications have been discussed as a management strategy. Obstructive sleep apnea is a significant concern, and the patient cannot tolerate CPAP therapy. He has been advised to use a mouthguard and consider positional therapy. The patient has impaired glucose tolerance with elevated blood sugar levels noted in past lab work, although hemoglobin A1c remains normal. Lifestyle modifications, including diet and exercise, have been recommended. Irritable bowel syndrome (IBS) presents with alternating constipation and diarrhea. The patient has been advised to increase fiber intake and maintain hydration. The patient has a history of generalized anxiety disorder and is currently on sertraline and amitriptyline for management. He attends counseling sessions through the [facility]. Asthma is managed with standard therapy, and no recent exacerbations were reported. Hepatic steatosis was identified on ultrasound, with elevated liver enzymes noted in previous lab results. The patient has been advised to follow a low-fat diet. The patient experiences migraines and has been prescribed rizatriptan for acute management and Ajovy for prevention, pending insurance approval. Tinnitus is present, with hearing loss noted in the left ear, but the patient has declined further testing at this time. Early signs of arthritis were noted in the lumbar spine, with previous imaging showing changes at T12 and L1. The patient has undergone physical therapy and uses a TENS unit for management. Health Maintenance - Weight management consultations and medication trials for obesity - Dietary modifications for GERD and hepatic steatosis - Lifestyle modifications for impaired glucose tolerance - Fiber intake and hydration for IBS management - Counseling sessions for generalized anxiety disorder - Standard asthma management - Use of mouthguard and positional therapy for obstructive sleep apnea Social History - Substance Use: Denies tobacco and recreational drug use, consumes alcohol approximately three times a week, drinking a quarter to half a bottle of wine each time. - Exercise: Limited due to back pain, plans to resume treadmill use for weight loss. - Nutrition: Consumes vegetables, including [place] sprouts, and drinks over a gallon of water daily. - Family Status: Engaged in marriage counseling with partner Stephen. Review of Systems - General: Denies fever, chills, or weight loss. - HEENT: Reports tinnitus, denies dizziness, nausea, or vomiting. - Respiratory: Denies dyspnea or cough. - Cardiovascular: Denies chest pain or palpitations. - Gastrointestinal: Reports heartburn, alternating constipation and diarrhea. - Musculoskeletal: Reports lower back pain, denies joint swelling. - Neurological: Reports migraines, denies syncope or seizures. - Psychiatric: Reports anxiety, denies depression. Physical Exam - General: No acute distress noted. - HEENT: Throat slightly red, no congestion noted. - Ears: Clean, no cerumen impaction. - Respiratory: Clear to auscultation bilaterally, no wheezes or rales. - Cardiovascular: Regular rate and rhythm, no murmurs or gallops. - Musculoskeletal: No tenderness or deformities noted in lower back, full range of motion. - Neurological: No focal deficits, normal strength and reflexes. Results - Labs: Elevated blood sugar, normal hemoglobin A1c, elevated liver enzymes, elevated triglycerides at 228 mg/dL. - Imaging: Hepatic steatosis noted on ultrasound. - Imaging: Early signs of arthritis noted on lumbar spine imaging, changes at T12 and L1. Plan The patient will continue with weight management strategies, including medication adjustments for Zepbound based on weight loss progress. Dietary modifications will be reinforced to manage GERD and hepatic steatosis, with emphasis on a low-fat diet. For obstructive sleep apnea, the patient is advised to use a mouthguard and consider positional therapy as CPAP is not tolerated. Lifestyle modifications, including diet and exercise, will be emphasized to address impaired glucose tolerance. Management of IBS will focus on increasing fiber intake and maintaining hydration. The patient will continue sertraline and amitriptyline for generalized anxiety disorder and [facility] Asthma management will continue with standard therapy, and no recent exacerbations have been reported. Migraine management includes rizatriptan for acute episodes and Ajovy for prevention, pending insurance approval. The patient will monitor tinnitus and hearing loss, with no further testing planned at this time. Management of early signs of arthritis will include continued use of a TENS unit and physical therapy as needed. Patient was informed and verbally consented to the use of an ambient scribe for clinic note documentation during this visit. Discussion Notes During the visit, we discussed the management of the patient's chronic conditions, including the importance of weight management and medication adjustments for Zepbound. We reviewed dietary modifications for GERD and hepatic steatosis, emphasizing a low-fat diet. For obstructive sleep apnea, I advised the patient to use a mouthguard and consider positional therapy, as CPAP is not tolerated. We also discussed lifestyle modifications for impaired glucose tolerance, focusing on diet and exercise. The management of IBS was addressed with recommendations to increase fiber intake and maintain hydration. The patient will continue sertraline and amitriptyline for generalized anxiety disorder and [facility]. Asthma management will continue with standard therapy, and no recent exacerbations have been reported. Migraine management includes rizatriptan for acute episodes and Ajovy for prevention, pending insurance approval. We discussed monitoring tinnitus and hearing loss, with no further testing planned at this time. Management of early signs of arthritis will include continued use of a TENS unit and physical therapy as needed. Patient Instructions - Continue weight management strategies and monitor weight loss progress. - Follow dietary modifications for GERD and hepatic steatosis, focusing on a low-fat diet. - Use a mouthguard and consider positional therapy for obstructive sleep apnea. - Implement lifestyle modifications for impaired glucose tolerance, including diet and exercise. - Increase fiber intake and maintain hydration for IBS management. - Continue sertraline and amitriptyline for anxiety management and attend counseling sessions. - Continue standard asthma management. - Use rizatriptan for acute migraine episodes and follow up on Ajovy for prevention. - Monitor tinnitus and hearing loss, no further testing needed at this time. - Use a TENS unit and continue physical therapy for arthritis management. Orders: Orders Ferritin Today N28.9 - Disorder of kidney and ureter, unspecified Complete Blood Count Auto Diff Today G43.119 - Migraine with aura, intractable, without status migrainosus Thyroid Stimulating Hormone Today G43.119 - Migraine with aura, intractable, without status migrainosus Vitamin B12 and Folate Today G43.119 - Migraine with aura, intractable, without status migrainosus Comprehensive Met. Panel Today G43.119 - Migraine with aura, intractable, without status migrainosus Free T4 (Free Thyroxine) Today G43.119 - Migraine with aura, intractable, without status migrainosus Magnesium Today G43.119 - Migraine with aura, intractable, without status migrainosus Hemoglobin A1c Today G43.119 - Migraine with aura, intractable, without status migrainosus Lipid Panel Today E78.00 - Pure hypercholesterolemia, unspecified, G43.119 - Migraine with aura, intractable, without status migrainosus UA CC w/rflx Micro + Cult Today G43.119 - Migraine with aura, intractable, without status migrainosus, R30.0 - Dysuria
[2025-06-02 09:01] VITALS: BP 136/68; PULSE 98; TEMP 36.2; O2SAT 96; BMI 40.4
--- OUTSIDE RECORDS SUMMARY | 2025-06-02 09:17 | XMS_ITS | Clinical Summary ---
Author Organization [facility] Address [address] [place] [address] Care Team Providers Care Temporary Administrative Assistant Name Role Phone Rosamaria Sam MD Primary Care Provider [phone] Allergies No known active allergies Medications No [...] season) 2024 08/16/2021, 07/26/2021 Influenza Vaccine (#1) 2025 2, 2021, 01/05/2021, Additional history exists Hepatitis B Vaccines Completed 08/20/2014, 09/13/2013, 07/30/2013 Pneumococcal Vaccine Aged Out No long er eligible based on patient's age to complete this topic RSV Ped < 20 months Aged Out No longe r eligible based on patient's age to complete this topic Care Teams Temporary Administrative Assistant Relationship Specialty Start Date End Date Po, Rosamaria Jerome MD [address] [place] [address] [address] [facility] [place] [address] PCP - General Internal Medicine 07/03/24
--- OUTSIDE RECORDS SUMMARY | 2025-06-02 09:18 | XMS_ITS | Encounter Summary ---
Author Organization [facility] Address [address] [place] [id number] Care Team Providers Care Fisheries Diver Name Role Phone Unavailable Primary Care Provider Unavailabl e Encounter Details Date Type Department Care Team (Late st Contact Info) Description 06/16/2020 Lab Requisition [facility] Testing [address] [id number] Michele Hwang PA-C [address] [place] [id number] Encounter for laboratory testing for COVID-19 virus [...] DETECTED NOT DETECTED 06/17/2020 3:00 PM EDT [facility] Comment: A Not [...] diagnosis and patient management decisions. REFERENCE RANGE: NOT DETECTED This patient specimen was tested using an FDA EUA pooling method. Negative results from pooled testing should not be treated as definitive. If the patient's clinical signs and symptoms are [...] providers and patients using the following websites: [email or web address]/ fact-sheet [email or web address]://[email or web address]/ fact-sheet.html This test has been authorized by the FDA under an Emergency Use Authorization (EUA) for use by authorized laboratories. Due to the current public health emergency, [facility] is receiving a high volume of samples [...] including collection of an additional specimen. Methodology: Nucleic Acid Amplification Test (NAAT) includes PCR or TMA Additional information about COVID-19 can be found at the [facility] website: [email or web address]. Microbiology Nasopharyngeal swab / Unknown 06/16/2020 1:24 PM EDT 06/16/2020 1:24 PM EDT [facility] - 06/17/2020 3:00 PM EDT Performing Organization Information: Site ID: [id number] Name: [employer] Address: [address] [place] [address],[place] [address] Director: JAMIA CANNON MD [facility] License number [id number] Michele Hwang PA-C BODY FLUIDS AND STOOLS OR DERABLES Final Result Performing Organization Address City/State/[facility] Co de Phone Number [facility] documented in this encounter Visit Diagnoses Diagnosis Encounter for laboratory testing for COVID-19 virus documented in this encounter
--- OUTSIDE RECORDS SUMMARY | 2025-06-02 09:18 | XMS_ITS | Clinical Summary ---
Author Organization [facility] it Address [address] [place] [address] Care Team Providers Care Registered Dental Assistant Name Role Phone Rosamaria Sam MD Primary Care Provider [phone] Immunizations Name Administration Dates Next Due Pfizer [...] 2024 08/16/2021, 07/26/2021 Influenza Vaccine (#1) 2025 , 01/05/2021 HIB Vaccines Aged Out No [...] 5 Years) and At-Risk Patients (6 to 49 Years) Aged Out No longer eligible b ased on patient's age to complete this topic RSV Immunization Patients Under 20 months Aged Out No longer eligible b ased on patient's age to complete this topic Varicella Vaccines Aged Out No longer eligible based on patient's age to complete this topic Care Teams Registered Dental Assistant Relationship Specialty Start Date End Date Rosamaria Sam MD [address] [place] [address] Dr [address] [facility] [place] [address] PCP - General 07/03/24
--- OUTSIDE RECORDS SUMMARY | 2025-06-02 09:18 | XMS_ITS | Data Portability ---
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 He has a normal gait pattern, normal x-rays, and a normal MRI. On palpation, he reports that he has ongoing pain in the same area despite there being no appreciable abnormality that I can see. He feels like he is unable to return to work full duty. At this point, he has reached maximal medical improvement from me. He would like to try alternative therapies and feels like I have given up on him. He would like to consider acupuncture or additional modalities. It is unclear why he has never mentioned these before. We also discussed that these are typically not covered by insurance and he may consider these on his own if he is motivated to get better. However, on my end, he has certainly reached maximal medical improvement. He may seek an opinion through Worker's [employer]. with another foot and ankle provider if he would like. According to the [employer] Guides to the Evaluation of Permanent Impairment, Sixth Edition, table 16 2, a strain of his left distal forefoot, with a normal MRI, normal imaging, with ongoing palpatory findings, corresponds to a 1% lower extremity impairment rating. He may follow-up in 8 weeks. He was given a work note today for 8 weeks of light duty, but I anticipate that these restrictions will be permanent. Not available 04/28/2025 09:34:00 Plan of Treatment Reminders Order Date Submit Date Provider Last Modified By Organization Details Last Modified Time Details Appointments WC FOLLOW-UP 2024 08:30A M Almita Thompson MD Not available Not available Not available Lab None recorded. Referral None recorded. Procedures None recorded. Surgeries None recorded. Imaging XR, ankle, 3 or more view 2023 024 [email or web address] [facility], [address], [place], [address], 10/28/2024 10:36:43 XR, foot, 2 view 2023 024 [email or web address] [facility], [address], [place], [address], 10/28/2024 10:36:43 MRI, foot, w/o contrast - Rule out edema in the fourth and fifth metatarsa ls, rule out occult fracture, work injury 4 months ago, failed conservat vaughn care 2023 024 [email or web address] Not available 12/06/2024 15:29:06 Medication Orders None recorded. Patient TargetsNo targets recorded. Patient Instructions Encounter Date Encounter Id Patient Instructions Last Modified By Organization Details Last Modified Time 10/28/2024 [id number] Weightbearing x-rays of the left foot and ankle were obtained on 10/28/2024 which is negative for acute fracture. No evidence of periosteal stress reaction. No widening of the Lisfranc complex. [email or web address] Not available 10/28/2024 09:41:08 12/23/2024 [id number] Weightbearing x-rays of the left foot and ankle were obtained on 10/28/2024 which is negative for acute fracture. No evidence of periosteal stress reaction. No widening of the Lisfranc complex. [email or web address] Not available 11/25/2024 08:29:38 01/20/2025 [id number] Weightbearing x-rays of the left foot and ankle were obtained on 10/28/2024 which is negative for acute fracture. No evidence of periosteal stress reaction. No widening of the Lisfranc complex. Not available 01/20/2025 08:22:38 03/02/2025 [id number] Weightbearing x-rays of the left foot and ankle were obtained on 10/28/2024 which is negative for acute fracture. No evidence of periosteal stress reaction. No widening of the Lisfranc complex. [email or web address] Not available 03/02/2025 08:31:08 04/28/2025 [id number] Weightbearing x-rays of the left foot and ankle were obtained on 10/28/2024 which is negative for acute fracture. No evidence of periosteal stress reaction. No widening of the Lisfranc complex. [email or web address] Not available 04/28/2025 08:21:47 Reason for Referral None Reported. Results Created [...] Organization Details Recorded Time Strain of foot 58358648096 Active 025 Almita Thompson MD [address], [place], [address] , [place] [facility] 10:20:55 Problem Notes None recorded. Medical Equipment None Reported. Allergies No known drug allergies Medications Name Sig Start Date Stop Date Status Note LastModified by Organization Details LastModified Time amoxicillin 500 mg capsule TAKE 1 CAPSULE BY MOUTH THREE TIMES A DAY active Not Available Not Available No t Available doxycycline hyclate 100 mg capsule 12/23 completed Not Available Not Available Not Available azithromyci n 250 mg tablet TAKE 2 TABLETS BY MOUTH TODAY, THEN TAKE 1 TABLET DAILY FOR 4 DAYS DIRECTED active Not Available Not Available No t Available ibuprofen 800 mg tablet TAKE 1 TABLET BY MOUTH THREE TIMES A DAY WITH FOOD active Not Available Not Available No t Available hydrocodone 5 mg-acetamin ophen 325 mg tablet TAKE 1 TABLET BY MOUTH EVERY 6 HOURS NEEDED FOR PAIN active Not Available Not Available No t Available meloxicam 15 mg tablet TAKE 1 TABLET BY MOUTH EVERY DAY FOR 30 DAYS 04/28 completed Not Available Not Available Not Available prednisone 20 mg tablet TAKE 2 TABLETS BY MOUTH ONCE DAILY FOR 5 DAYS 12/23 completed Not Available Not Available Not Available rizatriptan 10 mg tablet PLEASE SEE ATTACHED FOR DETAILED DIRECTION S active Not Available Not Available No t Available penicillin V potassium 500 mg tablet TAKE 1 TABLET BY MOUTH TWICE A DAY FOR 10 DAYS 04/28 completed Not Available Not Available Not Available acyclovir 400 mg tablet TAKE 1 [...] EVERY 12 HOURS NEEDED FOR 7 DAYS 04/28 completed Not Available Not Available Not Available amoxicillin 875 mg tablet TAKE 1 [...] ointment APPLY TOPICALLY 2 TIMES A DAY 04/28 completed Not Available Not Available Not Available diclofenac sodium 50 mg tablet,luis antonio [...] WITH FOOD, PREFERABL Y A HIGH-FAT MEAL 04/28 completed Not Available Not Available Not Available amoxicillin 875 mg-potassiu m clavulanate 125 mg tablet TAKE 1 TABLET BY MOUTH TWICE A DAY 04/28 completed Not Available Not Available Not Available cyclobenzap rine 5 mg tablet TAKE 1 TABLET BY MOUTH EVERYDAY AT BEDTIME 12/23 completed Not Available Not Available Not Available chlorhexidi ne gluconate 0.12 % mouthwash SWISH AND SPIT WITH 10 ML 3 TIMES A DAY. SWISH AND SPIT OUT / DO NOT SWALLOW active Not Available Not Available No t Available Ubrelvy 100 mg tablet PLEASE SEE ATTACHED FOR DETAILED DIRECTION S active Not Available Not Available No t Available Wegovy 0.25 mg/0.5 mL subcutaneou s pen injector 04/28 completed Not Available Not Available Not Available Paxlovid [...] Updated DateTime 12/23/2024 180.34 cm 39.1 kg/m2 542817.[address] [place] [facility] 12/23/2024 09:50:01 Date Recorded Body height Body mass index (BMI) Body weight Provider Name and Address Organization Details Last Updated DateTime 01/20/2025 180.34 cm 39.1 kg/m2 463918.[address] [facility] 01/20/2025 09:10:53 Date Recorded Body height Body mass index (BMI) Body weight Provider Name and Address Organization Details Last Updated DateTime 03/02/2025 180.34 cm 39.1 kg/m2 619614.[address] [place] [facility] 03/02/2025 09:37:22 Date Recorded Body height Body mass index (BMI) Body weight Provider Name and Address Organization Details Last Updated DateTime 04/28/2025 180.34 cm 39.1 kg/m2 515180.[address] [facility] 04/28/2025 08:29:06 Date Recorded Body height Body mass index (BMI) Body weight Provider Name and Address Organization Details Last Updated DateTime 10/28/2024 180.34 cm 39.1 kg/m2 885704.86 g ADAMA STEINBERG PA-C [address], [place], [address], [place] [facility] 10/28/2024 09:28:58 Social History None recorded. Functional Status None recorded. Mental Status None recorded. Family History Nothing Reported. Medical History Condition Response Coronary Artery Disease N Gout N Hyperthyroidism N MRSA N Blood Transfusion N Emphysema N Hypothyroidism N Depression N COPD N Pacemaker N Vascular Disease N Gastrointestinal Disease N Anxiety Disorder N Autoimmune disease N Arthritis N Cancer N Stroke N High Cholesterol N Neurologic Disorder N Liver Disease N Organ Transplant N Rheumatoid Arthritis N Arrhythmia N Fibromyalgia N Kidney Disease N Allergies/Hayfever N Adverse Reaction to Anesthesia N Thyroid Problems N Anemia N Brain Injury N Heart Attack (RI) N Osteopenia N Diabetes N Bleeding Disorder N Seizures/Epilepsy N AIDS/HIV N Congestive Heart Failure (CHF) N Asthma N Amputation N Reflux/GERD N Sleep Apnea N Hepatitis N Aneurysm N Heart Disease N Pulmonary Embolism N Hypertension N Osteoporosis N Past Encounters Encounter ID Performer Location Encounter Start Date Encounter Closed Date Diagnosis/Indication Diagnosis SNOMED-CT Code Diagnosis ICD10 Code Diagnosis Note [id number] BILL LARSON [address] [place] [address] [address] [place] [address] 10/28/2024 09:05:04 10/28/2024 09:52:11 Ankle pain 489521420 M25.572 Pain in left foot 839762 3439 58056 M79.672 [id number] MD [facility]N [facility] [place] [address] [facility] [address] [place] [address] 12/23/2024 09:48:32 12/23/2024 10:25:26 Strain of foot 2129973251 9 S96.912D [id number] MD [place] [address] [facility] [address] [place] [address] 01/20/2025 08:59:53 01/20/2025 09:37:45 Strain of foot 3641437345 9 S96.912D [id number] ADAMA STEINBERG PA-C [place] [address] [facility] [address] [place] [address] 03/02/2025 09:23:49 03/02/2025 10:02:11 Strain of foot 0770173477 9 S96.912D [id number] MD [place] [address] [address] 04/28/2025 08:16:35 04/28/2025 08:44:33 Strain of foot 5677918915 9 S96.912D Health Concerns Section Related Observation LastModified by Organization Detai ls LastModified Time None Recorded Concern Status LastModified by Organization Details LastModified Time None Recorded Advance Directives Directive None Recorded Payers Insurance Date Sequence Insurance Name Policy Number Policy Gloria Covered Member ID Gloria Member ID Guarantor Name 09/29/2024 [place] [employer] Thuan Nguyen [id number] Thuan Nguyen 09/29/2024 JAMESON Nguyen 04/25/2025 1 [place] [id number] H Thuan Nguyen [id number] Thuan Nguyen 09/29/2024 [place] [employer] Thuan Nguyen [id number] Thuan Nguyen 09/29/2024 [employer] [id number] Other Thuan Nguyen Notes Date [...] no medical history. 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 He drinks about 4 alcoholic drinks per week. ADAMA STEINBERG PA-C [address], [place], [address], [place] [facility] 10/28/2024 09:42:03 12/23/2024 text/html Date of [...] no medical history. 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 He drinks about 4 alcoholic drinks per week. Almita Thompson MD [address], [place], [address], [place] [facility] 12/26/2024 19:04:57 01/20/2025 text/html Date of [...] no medical history. 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 He drinks about 4 alcoholic drinks per week. Almita Thompson MD [address], [place], [address], [place] [facility] 01/20/2025 10:49:04 03/02/2025 text/html Date of [...] no medical history. 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 He drinks about 4 alcoholic drinks per week. Almita Thompson MD [address], [place], [address], [place] [facility] 03/02/2025 21:13:47 04/28/2025 text/html Date of injury: 07/03/24 Thuan Nguyen is a 34 year old male who presents today for follow-up evaluation regarding his left foot. He is now 10 months from his injury. He reports that he feels like he is still unable to return to work full duty. He reports that his pain is still 6-9 out of 10. It is moderate and constant in the same. He reports ongoing stagnant sharp shooting pain. He takes ibuprofen 800 mg with mild improvement. From 03/02/25 (TK): for follow-up evaluation regarding his left foot. [...] no medical history. 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 He drinks about 4 alcoholic drinks per week. Almita Thompson MD [address], [place], [address], [place] [facility] 04/28/2025 09:34:09
--- OUTSIDE RECORDS SUMMARY | 2025-06-02 09:18 | XMS_ITS | Patient Health Record ---
Author Organization [facility] Address [address] [address] Care Team Providers Care Carrot Buncher Name Role Phone Nena Ortiz Primary Care Provider [phone] Allergies No Known Allergies Results Component Value Reference Range Notes URINE CYTOLOGY Reviewed date:12/28/2024 08:04:32 AM Interpretation: Performing Lab:NL[facility], [facility] [place], [place] [phone] Shayan Cannon M.D. Notes/Report: SCREENER KF, PRESLEY(ASCP) CT screening location: [place] [address] PATHOLOGIST Marion Farrell M.D., Board Certified in Anatomic and Clinical Pathology (electronic signature) A SOURCE Urine A PROCEDURE Cytology A GROSS DESCRIPTION The name on the container is in agreement with the requisition. 50 ml of clear, dark yellow fluid, received in Cytolyt fixative and processed by the ThinPrep method. (DC)12/23/2024 Gross exam(s) performed at: [facility] [address] [place] [phone] Concrete Curer: SHAYAN CANNON MD A DIAGNOSIS NEGATIVE FOR HIGH-GRADE UROTHELIAL CARCINOMA. - BENIGN UROTHELIAL AND SQUAMOUS CELLS PRESENT. Red blood cells present. Acute inflammation present. TSH W/REFLEX TO FT4 Reviewed date:12/28/2024 08:04:32 AM Interpretation: Performing Lab:NL1, [facility] [place], [place] [phone] Shayan Cannon M.D. Notes/Report: FASTING: YES SPECIALIZED COLLECTION. PATIENT REFERRED TO ALTERNATE SITE. FASTING:YES TSH W/REFLEX TO FT4 3.20 0.40-4.50 mIU/L CBC (INCLUDES DIFF/PLT) Reviewed date:12/28/2024 08:04:32 AM Interpretation: Performing Lab:NL1, [facility] [address] Shayan Cannon M.D. Notes/Report: FASTING:YES SPECIALIZED [...] MPV 9.8 7.5-12.5 fL ABSOLUTE NEUTROPHILS [phone] cells/uL ABSOLUTE LYMPHOCYTES 4200 121-6937 cells/uL ABSOLUTE MONOCYTES 459 200-950 cells/uL ABSOLUTE EOSINOPHILS 128 15-500 cells/uL ABSOLUTE BASOPHILS 61 0-200 cells/uL NEUTROPHILS 52.4 LYMPHOCYTES 34.9 MONOCYTES 9.0 EOSINOPHILS 2.5 BASOPHILS 1.2 CLIENT EDUCATION TRACKING Reviewed date:11/28/2024 09:26:19 AM Interpretation: Performing Lab:ANNABELLA1, [facility] [address] Shayan Cannon M.D. Notes/Report: FASTING: NO CLIENT EDUCATION TRACKING The Requisition we received did not include a [facility] account number. To prevent delays in testing and processing of your orders please provide the following information with every order submitted: [facility] account number and account name Client address Client phone and fax number NPI number of ordering physician along with the physician name. TSH+FREE T4 Reviewed date:11/13/2024 09:17:35 PM Interpretation: Performing Lab:NL1, [facility] [id number] [place], [place] [phone] Shayan Cannon M.D. Notes/Report: TSH 5.55 0.40-4.50 mIU/L T4, FREE 1.1 0.8-1.8 ng/dL URINE CYTOLOGY Reviewed date:11/28/2024 09:26:19 AM Interpretation: Performing Lab:[facility], [facility] [place], [place] [phone] Shayan Cannon M.D. Notes/Report: SCREENER RMM, CT(ASCP) CT screening location: [place] [address] PATHOLOGIST Néstor Diaz M.D., Board Certified in Anatomic Pathology, Clinical Pathology and Cytopathology (electronic signature) A SOURCE Urine A PROCEDURE Cytology A GROSS DESCRIPTION The name on the container is in agreement with the requisition. 50 ml of clear, pale yellow fluid, received in Cytolyt fixative and processed by the ThinPrep method. (DC)11/16/2024 Gross exam(s) performed at: [facility] [address] [place] [phone] Concrete Curer: SHAYAN CANNON MD A DIAGNOSIS NEGATIVE FOR HIGH-GRADE UROTHELIAL CARCINOMA. - BENIGN UROTHELIAL AND SQUAMOUS CELLS PRESENT. QUESTASSURED 25-OH VIT D, (D 2,D3), LC/MS/MS Reviewed date:11/13/2024 09:17:35 PM Interpretation: Performing Lab:[facility], [facility] [place], [place] [phone] Shayan Cannon M.D. Notes/Report: VITAMIN D,25-OH,TOTAL,IA 28 30-100 ng/mL Vitamin D Status 25-OH Vitamin D: Deficiency: <20 ng/mL Insufficiency: 20 - 29 ng/mL Optimal: > or = 30 ng/mL For 25-OH Vitamin D testing on patients on D2-supplementation and patients for whom quantitation of D2 and D3 fractions is required, the QuestAssureD(TM) 25-OH VIT D, (D2,D3), LC/MS/MS is recommended: order code 39153 (patients >2yrs). See Note 1 Note 1 For additional information, please refer to http://education.Billeo.Technitrol/faq/HIY145 (This link is being provided for informational/ educational purposes only.) VITAMIN B12 Reviewed date:11/13/2024 09:17:35 PM Interpretation: Performing Lab:[facility] [place] [id number] Shayan Cannon M.D. Notes/Report: VITAMIN B12 105 654-3184 pg/mL HEMOGLOBIN A1c Reviewed date:11/13/2024 09:17:35 PM Interpretation: Performing Lab:[facility] [place] [id number] Shayan Cannon M.D. Notes/Report: HEMOGLOBIN A1c 5.5 [...] diagnosis of diabetes in children. According to [place] Diabetes Association (ADA) guidelines, hemoglobin A1c <7.0% represents optimal control in non- diabetic patients. Different metrics may apply to specific patient populations. Standards of Medical Care in Diabetes(ADA). C-REACTIVE PROTEIN Reviewed date:11/13/2024 09:17:35 PM Interpretation: Performing Lab:[facility] [place] [id number] Shayan Cannon M.D. Notes/Report: C-REACTIVE PROTEIN 9.7 <8.0 mg/L URINALYSIS, COMPLETE W/REFLE X TO CULTURE Reviewed date:11/13/2024 09:17:35 PM Interpretation: Performing Lab:[facility] [address] Shayan Cannon M.D. Notes/Report: COLOR YELLOW [...] Reviewed date:11/13/2024 09:17:35 PM Interpretation: Performing Lab:NL1, [facility] [id number] [place], [place] [phone] Shayan Cannon M.D. Notes/Report: WHITE BLOOD CELL [...] MPV 10.0 7.5-12.5 fL ABSOLUTE NEUTROPHILS 2865 7917-0248 cells/uL ABSOLUTE LYMPHOCYTES 8831 477-3265 cells/uL ABSOLUTE MONOCYTES 458 200-950 cells/uL ABSOLUTE EOSINOPHILS 276 15-500 cells/uL ABSOLUTE BASOPHILS 31 0-200 cells/uL NEUTROPHILS 55.1 LYMPHOCYTES 30.2 MONOCYTES 8.8 EOSINOPHILS 5.3 BASOPHILS 0.6 COMPREHENSIVE METABOLIC PANE L Reviewed date:11/13/2024 09:17:35 PM Interpretation: Performing Lab:NL1, [facility] [address] Shayan Cannon M.D. Notes/Report: GLUCOSE 96 [...] Reviewed date:11/13/2024 09:17:35 PM Interpretation: Performing Lab:NL1, [facility] [id number] [place], [place] [phone] Shayan Cannon M.D. Notes/Report: CHOLESTEROL, TOTAL 132 [...] LDL-C. Pradip CARDENAS et al. BOBBI. 2013;310(19): 0081-9022 (http://education.Motostrano.Technitrol/faq/YZM389) CHOL/HDLC RATIO 4.4 <5.0 (calc) NON HDL CHOLESTEROL 102 <130 mg/dL (calc) For patients with diabetes plus 1 major ASCVD risk factor, treating to a non-HDL-C goal of <100 mg/dL (LDL-C of <70 mg/dL) is considered a therapeutic option. IRON, TIBC AND FERRITIN PANE L Reviewed date:11/13/2024 09:17:35 PM Interpretation: Performing Lab:[facility] [address] Shayan Cannon M.D. Notes/Report: IRON, TOTAL 55 50-180 mcg/dL IRON BINDING CAPACITY 244 250-425 mcg/dL (juan jose c) % SATURATION 23 20-48 % (calc) FERRITIN 109 38-380 ng/mL C-REACTIVE PROTEIN Reviewed date:12/28/2024 08:04:32 AM Interpretation: Performing Lab:[facility] [address] Shayan Cannon M.D. Notes/Report: FASTING:YES SPECIALIZED COLLECTION. PATIENT REFERRED TO ALTERNATE SITE. FASTING: YES C-REACTIVE PROTEIN <3.0 <8.0 mg/L URINALYSIS, COMPLETE W/REFLE X TO CULTURE Reviewed date:12/28/2024 08:04:32 AM Interpretation: Performing Lab:[facility] [address] Shayan Cannon M.D. Notes/Report: FASTING:YES SPECIALIZED [...] ULTURE INDICATED COMPREHENSIVE METABOLIC PANE L Reviewed date:12/28/2024 08:04:32 AM Interpretation: Performing Lab:[facility] [phone] Shayan Cannon M.D. Notes/Report: FASTING:YES SPECIALIZED [...] 24 10-40 U/L ALT 24 9-46 U/L IRON, TIBC AND FERRITIN PANE L Reviewed date:12/28/2024 08:04:32 AM Interpretation: Performing Lab:[facility], [facility] [place], [place] [phone] Shayan Cannon M.D. Notes/Report: FASTING:YES SPECIALIZED COLLECTION. PATIENT REFERRED TO ALTERNATE SITE. FASTING: YES IRON, TOTAL 93 50-180 mcg/dL IRON BINDING CAPACITY 235 250-425 mcg/dL (juan jose c) % SATURATION 40 20-48 % (calc) FERRITIN 149 38-380 ng/mL URINALYSIS, COMPLETE W/REFLE X TO CULTURE Reviewed date:11/28/2024 09:26:19 AM Interpretation: Performing Lab:[facility], [facility] [place], [place] [phone] Shayan Cannon M.D. Notes/Report: FASTING: NO COLOR [...] MOUTH TWICE A DAY FOR 5 DAYS Oral; Duration: 5 Days Active Meloxicam 15 MG TAKE 1 TABLET BY AIDAN TH EVERY DAY Oral; Duration: 30 Days Active Cyclobenzaprine HCl 5 MG TAKE 1 TABLET B Y MOUTH EVERYDAY AT BEDTIME Oral; Duration: 20 Days Active Albuterol Sulfate HFA 108 (9 0 Base) MCG/ACT INHALE 2 PUFFS EVERY 6 HOURS NEEDED FOR SHORTNESS OF BREATH OR WHEEZING Inhalation; Duration: 20 Days Active Ubrelvy 100 MG TAKE 1/2-1 TABLET ON CE NEEDED AT ONSET OF MIGRAINE. MAY REPEAT IN 2 HOURS UP TO MAX 2 TABS/DAY Oral; Duration: 30 Days Active Rizatriptan Benzoate 10 MG PLEASE SEE AT TACHED FOR DETAILED DIRECTIONS Oral; Duration: 30 Days Active Sertraline HCl 25 MG Oral; Duration: 60 Days Active Social History Tobacco Use: Social History Observation Description Date Details (start date - stop date) Never Smoker NA - NA Tobacco Control (Standard) Question Answer Notes Tobacco use: Nonsmoker Problems Problem Type SNOMED Code ICD Code Onset Dates Problem Status W/U Status Risk Notes Problem Vitamin D deficiency (88956123) Vitamin D deficiency (E55.9) Active confirmed Problem Mood disorder (52021083) Mood disorder (F39) Active confirmed Problem Kidney stone (21893445) Kidney stones (N20.0) Active confirmed Problem Fatty liver (620153097) Fatty liver (K76.0) Active confirmed Problem Acquired hypothyroidism (124090847) Acquired hypothyroidism (E03.9) Active confirmed Problem Mild intermittent asthma (159573866) Mild intermittent asthma without complication (J45.20) Active confirmed Problem C-reactive protein abnormal (254436650) CRP elevated (R79.82) Active confirmed Problem Essential hypertension (26166254) Hypertension, unspecified type (I10) Active confirmed Problem Migraine without aura, not refractory (655661404) Other migraine without status migrainosus, not intractable [...] Date Provider Diagnosis [facility] [address] [address] 08/10/2024 Nena Ortiz Hypertension, unspecified type I10 [facility] [address] [address] 09/17/2024 Nena Ortiz Encounter for genera l adult medical examination with abnormal findings Z00.01 ; Hypertension, unspecified type I10 ; Left foot pain M79.672 and Other migraine without status migrainosus, not intractable G43.809 [facility] [address] [address] 10/15/2024 Nena Ortiz Left foot pain M79.6 72 and Left lateral ankle pain M25.572 [facility] [address] [place] [id number] 11/18/2024 Nena Ortiz Flank pain R10.9 ; Fatty liver K76.0 and Frequent urination R35.0 [facility] [address] [address] 12/20/2024 Nena Diana Kidney stones N20.0 ; CRP elevated R79.82 and Acquired hypothyroidism E03.9 [facility] [address] [place] [address] 11/23/2024 [facility] [address] [place] [address] 01/11/2025 N[facility] [address] [place] [address] 08/10/2024 N[facility] [address] [place] [address] 08/10/2024 Nena [facility] [address] [place] [address] 11/16/2024 N[facility] [address] [place] [address] 11/20/2024 N[facility] [address] [place] [address] 11/20/2024 N[facility] [address] [place] [address] 11/24/2024 N[facility] [address] [place] [address] 12/27/2024 Nena Ortiz Assessments Encounter Date Diagnosis (ICD [...] Coverage End Date [employer] and Blue [facility] [address] [place] [address] [id number] [id number] Thuan Nguyen Self - patient is the insured Medical (General) History Medical History History ICD Code Mild intermittent asthma without complic ation J45.20 Other migraine without status migrainosu s, not intractable G43.809 Mood disorder F39
== END 2025-06-02 09:44 | disposition home or self-care (01) ==
LOC: HO.HMCH 08:58
PROVIDERS: PCP Internal Medicine; Visit Provider Internal Medicine
DX: Z00.00 Encounter for general adult medical examination without abnormal findings (principal); G47.33 Obstructive sleep apnea (adult) (pediatric); E66.01 Morbid (severe) obesity due to excess calories; Z68.41 Body mass index [BMI] 40.0-44.9, adult; G43.119 Migraine with aura, intractable, without status migrainosus; K76.0 Fatty (change of) liver, not elsewhere classified; K21.9 Gastro-esophageal reflux disease without esophagitis; R73.02 Impaired glucose tolerance (oral); F41.1 Generalized anxiety disorder

== ENCOUNTER 2025-06-03 08:34 | Outpatient (REF) | payer BC, SELFPAY ==
--- OUTSIDE RECORDS SUMMARY | 2025-06-03 08:37 | XMS_ITS | Clinical Summary ---
Author Organization [facility] Address [address] [place] [address] Care Team Providers Care Masonry Contractor Administrator Name Role Phone Rosamaria Sam MD Primary Care Provider [phone] Allergies No known active allergies Medications No [...] age to complete this topic Care Teams Masonry Contractor Administrator Relationship Specialty Start Date End Date Po, Rosamaria Jerome MD [address] [place] [address] [address] [facility] [place] [address] PCP - General Internal Medicine 07/03/24
--- OUTSIDE RECORDS SUMMARY | 2025-06-03 08:37 | XMS_ITS | Encounter Summary ---
Author Organization [facility] Address [address] [place] [address] Care Team Providers Care Associate Entertainment Editor Name Role Phone Unavailable Primary Care Provider Unavailabl e Encounter Details Date Type Department Care Team (Late st Contact Info) Description 06/16/2020 Lab Requisition [facility] Testing [address] [phone] Michele Hwang PA-C [address] [place] [address] Encounter for laboratory testing for COVID-19 virus [...] DETECTED NOT DETECTED 06/17/2020 3:[address] [facility] Comment: A Not [...] providers and patients using the following websites: https://www.CrowdTogether.Mingly/home/Covid-19/HCP/QuestLDTP/ fact-sheet https://www.C[employer]dTogether.Mingly/home/Covid19/Patients/QuestLDTP/ fact-sheet.html This test has been authorized by the FDA under an Emergency Use Authorization (EUA) for use by authorized laboratories. Due to the current public health emergency, [employer] is receiving a high volume of samples [...] about COVID-19 can be found at the [employer] website: www.[employer].Mingly/Covid19. Microbiology Nasopharyngeal swab / Unknown 06/16/2020 1:24 PM EDT 06/16/2020 1:24 PM EDT [facility] - 06/17/2020 3:00 PM EDT Performing Organization Information: Site ID: [id number] Name: [facility] Address: [address] [place] [address],[place] [address] Director: JAMIA CANNON MD [facility]formed at [facility] License number [id number] Michele Hwang PA-C BODY FLUIDS AND STOOLS OR DERABLES Final Result Performing Organization Address City/State/[facility] Co de Phone Number [facility] documented in this encounter Visit Diagnoses Diagnosis Encounter for laboratory testing for COVID-19 virus documented in this encounter
--- OUTSIDE RECORDS SUMMARY | 2025-06-03 08:37 | XMS_ITS | Clinical Summary ---
Author Organization [facility] Address [address] [place] [address] Care Team Providers Care Composite Layup Worker Name Role Phone Rosamaria Sam MD Primary Care Provider [phone] Immunizations Name Administration Dates Next Due Pfizer [...] age to complete this topic Care Teams Composite Layup Worker Relationship Specialty Start Date End Date Rosamaria Sam MD [address] [place] [address] Dr [address] [facility] [place] [address] PCP - General 07/03/24
--- OUTSIDE RECORDS SUMMARY | 2025-06-03 08:37 | XMS_ITS | Patient Health Record ---
Author Organization [facility] Address [address] [address] Care Team Providers Care Typesetter Apprentice Name Role Phone Nena Ortiz Primary Care Provider Allergies No Known Allergies Results Component Value Reference Range Notes URINALYSIS, COMPLETE W/REFLE X TO CULTURE Reviewed date:11/28/2024 09:26:19 AM Interpretation: Performing Lab:NL[facility], [facility] [address] Shayan Cannon M.D. Notes/Report: FASTING: NO [...] REFLEXIVE URINE CULTURE NO C ULTURE INDICATED URINE CYTOLOGY Reviewed date:11/28/2024 09:26:19 AM Interpretation: Performing Lab:NL1, [facility] [address] Shayan Cannon M.D. Notes/Report: SCREENER PATY, PRESLEY(ASCP) CT screening location: [address] [address] PATHOLOGIST Néstor Diaz M.D., Board Certified in Anatomic Pathology, Clinical Pathology and Cytopathology (electronic signature) A SOURCE Urine A PROCEDURE Cytology A GROSS DESCRIPTION The name on the container is in agreement with the requisition. 50 ml of clear, pale yellow fluid, received in Cytolyt fixative and processed by the ThinPrep method. (DC)11/16/2024 Gross exam(s) performed at: [facility] [address] [place] [phone] Fly Frame Tender: SHAYAN CANNON MD A DIAGNOSIS NEGATIVE FOR HIGH-GRADE UROTHELIAL CARCINOMA. - BENIGN UROTHELIAL AND SQUAMOUS CELLS PRESENT. CLIENT EDUCATION TRACKING Reviewed date:11/28/2024 09:26:19 AM Interpretation: Performing Lab:NL[facility], [facility] [place], [place] [address] Shayan Cannon M.D. Notes/Report: FASTING: NO CLIENT EDUCATION TRACKING The Requisition we received did not include a [facility] account number. To prevent delays in testing and processing of your orders please provide the following information with every order submitted: [facility] account number and account name Client address Client phone and fax number NPI number of ordering physician along with the physician name. URINE CYTOLOGY Reviewed date:12/28/2024 08:04:32 AM Interpretation: Performing Lab:[email or web address], [facility] [address] Shayan Cannon M.D. Notes/Report: SCREENER KF, CT(ASCP) CT screening location: [place] [address] PATHOLOGIST Marion Farrell M.D., Board Certified in Anatomic and Clinical Pathology (electronic signature) A SOURCE Urine A PROCEDURE Cytology A GROSS DESCRIPTION The name on the container is in agreement with the requisition. 50 ml of clear, dark yellow fluid, received in Cytolyt fixative and processed by the ThinPrep method. (DC)12/23/2024 Gross exam(s) performed at: [facility] [address] [phone] Fly Frame Tender: SHAYAN CANNON MD A DIAGNOSIS NEGATIVE FOR HIGH-GRADE UROTHELIAL CARCINOMA. - BENIGN UROTHELIAL AND SQUAMOUS CELLS PRESENT. Red blood cells present. Acute inflammation present. TSH W/REFLEX TO FT4 Reviewed date:12/28/2024 08:04:32 AM Interpretation: Performing Lab:[email or web address], [facility] [address] Shayan Cannon M.D. Notes/Report: FASTING:YES SPECIALIZED COLLECTION. PATIENT REFERRED TO ALTERNATE SITE. FASTING: YES TSH W/REFLEX TO FT4 3.20 0.40-4.50 mIU/L CBC (INCLUDES DIFF/PLT) Reviewed date:12/28/2024 08:04:32 AM Interpretation: Performing Lab:[facility] [address] Shayan Cannon M.D. Notes/Report: FASTING:YES SPECIALIZED [...] MPV 9.8 7.5-12.5 fL ABSOLUTE NEUTROPHILS 2672 7530-6518 cells/uL ABSOLUTE LYMPHOCYTES 3881 447-0958 cells/uL ABSOLUTE MONOCYTES 459 200-950 cells/uL ABSOLUTE EOSINOPHILS 128 15-500 cells/uL ABSOLUTE BASOPHILS 61 0-200 cells/uL NEUTROPHILS 52.4 LYMPHOCYTES 34.9 MONOCYTES 9.0 EOSINOPHILS 2.5 BASOPHILS 1.2 TSH+FREE T4 Reviewed date:11/13/2024 09:17:35 PM Interpretation: Performing Lab:[facility] [address] Shayan Cannon M.D. Notes/Report: TSH 5.55 0.40-4.50 mIU/L T4, FREE 1.1 0.8-1.8 ng/dL [facility] 25-OH VIT D, (D 2,D3), LC/MS/MS Reviewed date:11/13/2024 09:17:35 PM Interpretation: Performing Lab:[facility] [address] Shayan Cannon M.D. Notes/Report: VITAMIN D,25-OH,TOTAL,IA 28 30-100 ng/mL Vitamin D Status 25-OH Vitamin D: Deficiency: <20 ng/mL Insufficiency: 20 - 29 ng/mL Optimal: > or = 30 ng/mL For 25-OH Vitamin D testing on patients on D2-supplementation and patients for whom quantitation of D2 and D3 fractions is required, the QuestAssureD(TM) 25-OH VIT D, (D2,D3), LC/MS/MS is recommended: order code 18821 (patients >2yrs). See Note 1 Note 1 For additional information, please refer to http://education.Hurray!/faq/GEV271 (This link is being provided for informational/ educational purposes only.) VITAMIN B12 Reviewed date:11/13/2024 09:17:35 PM Interpretation: Performing Lab:[facility] [address] Shayan Cannon M.D. Notes/Report: VITAMIN B12 196 132-8483 pg/mL HEMOGLOBIN A1c Reviewed date:11/13/2024 09:17:35 PM Interpretation: Performing Lab:[facility] [address] Shayan Cannon M.D. Notes/Report: HEMOGLOBIN A1c [...] diagnosis of diabetes in children. According to [place] Diabetes Association (ADA) guidelines, hemoglobin A1c <7.0% represents optimal control in non- diabetic patients. Different metrics may apply to specific patient populations. Standards of Medical Care in Diabetes(ADA). C-REACTIVE PROTEIN Reviewed date:11/13/2024 09:17:35 PM Interpretation: Performing Lab:[facility] [address] Shayan Cannon M.D. Notes/Report: C-REACTIVE PROTEIN 9.7 <8.0 mg/L URINALYSIS, COMPLETE W/REFLE X TO CULTURE Reviewed date:11/13/2024 09:17:35 PM Interpretation: Performing Lab:[facility] [address] Shayan Cannon M.D. Notes/Report: COLOR YELLOW [...] DIFF/PLT) Reviewed date:11/13/2024 09:17:35 PM Interpretation: Performing Lab:[facility] [address] Shayan Cannon M.D. Notes/Report: WHITE BLOOD [...] MPV 10.0 7.5-12.5 fL ABSOLUTE NEUTROPHILS 2865 0278-5351 cells/uL ABSOLUTE LYMPHOCYTES 8079 306-7155 cells/uL ABSOLUTE MONOCYTES 458 200-950 cells/uL ABSOLUTE EOSINOPHILS 276 15-500 cells/uL ABSOLUTE BASOPHILS 31 0-200 cells/uL NEUTROPHILS 55.1 LYMPHOCYTES 30.2 MONOCYTES 8.8 EOSINOPHILS 5.3 BASOPHILS 0.6 COMPREHENSIVE METABOLIC PANE L Reviewed date:11/13/2024 09:17:35 PM Interpretation: Performing Lab:NL1, [facility] [address] Shayan Cannon M.D. Notes/Report: GLUCOSE 96 [...] Reviewed date:11/13/2024 09:17:35 PM Interpretation: Performing Lab:NL[facility], [facility] [address] Shayan Cannon M.D. Notes/Report: CHOLESTEROL, TOTAL [...] of LDL-C. Pradip SS et al. BOBBI. 2013;310(46): 3953-5692 (http://LIANAI.BJ100.com/faq/ICY091) CHOL/HDLC RATIO 4.4 <5.0 (calc) NON HDL CHOLESTEROL 102 <130 mg/dL (calc) For patients with diabetes plus 1 major ASCVD risk factor, treating to a non-HDL-C goal of <100 mg/dL (LDL-C of <70 mg/dL) is considered a therapeutic option. IRON, TIBC AND FERRITIN PANE L Reviewed date:11/13/2024 09:17:35 PM Interpretation: Performing Lab:[facility] [address] Shayan Cannon M.D. Notes/Report: IRON, TOTAL 55 50-180 mcg/dL IRON BINDING CAPACITY 244 250-425 mcg/dL (juan jose c) % SATURATION 23 20-48 % (calc) FERRITIN 109 38-380 ng/mL C-REACTIVE PROTEIN Reviewed date:12/28/2024 08:04:32 AM Interpretation: Performing Lab:[facility] [address] Shayan Cannon M.D. Notes/Report: FASTING:YES SPECIALIZED COLLECTION. PATIENT REFERRED TO ALTERNATE SITE. FASTING: YES C-REACTIVE PROTEIN <3.0 <8.0 mg/L URINALYSIS, COMPLETE W/REFLE X TO CULTURE Reviewed date:12/28/2024 08:04:32 AM Interpretation: Performing Lab:[facility] [address] Shayan Cannon M.D. Notes/Report: FASTING:YES SPECIALIZED [...] Reviewed date:12/28/2024 08:04:32 AM Interpretation: Performing Lab:NL1, [facility] [address] Shayan Cannon M.D. Notes/Report: FASTING:YES SPECIALIZED [...] Reviewed date:12/28/2024 08:04:32 AM Interpretation: Performing Lab:NL1, [facility] [address] Shayan Cannon M.D. Notes/Report: FASTING:YES SPECIALIZED COLLECTION. PATIENT REFERRED TO ALTERNATE SITE. FASTING: YES IRON, TOTAL 93 50-180 mcg/dL IRON BINDING CAPACITY 235 250-425 mcg/dL (juan jose c) % SATURATION 40 20-48 % (calc) FERRITIN 149 38-380 ng/mL Reason For Referral Reason P with flank [...] Status Risk Notes Problem Vitamin D deficiency (79125441) Vitamin D deficiency (E55.9) Active confirmed Problem Mood disorder (49801818) Mood disorder (F39) Active confirmed Problem Kidney stone (28853340) Kidney stones (N20.0) Active confirmed Problem Fatty liver (896815456) Fatty liver (K76.0) Active confirmed Problem Acquired hypothyroidism (627051713) Acquired hypothyroidism (E03.9) Active confirmed Problem Mild intermittent asthma (577010432) Mild intermittent asthma without complication (J45.20) Active confirmed Problem C-reactive protein abnormal (600884523) CRP elevated (R79.82) Active confirmed Problem Essential hypertension (04260794) Hypertension, unspecified type (I10) Active confirmed Problem Migraine without aura, not refractory (058620077) Other migraine without status migrainosus, not intractable [...] Provider Diagnosis [facility] [address] [address] 08/10/2024 Nena Ortiz Hypertension, unspecified type I10 [facility] [address] [address] 09/17/2024 Nena Ortiz Encounter for genera l adult medical examination with abnormal findings Z00.01 ; Hypertension, unspecified type I10 ; Left foot pain M79.672 and Other migraine without status migrainosus, not intractable G43.809 [facility] [address] [address] 10/15/2024 Nena Ortiz Left foot pain M79.6 72 and Left lateral ankle pain M25.572 [facility] [address] [place] [id number] 11/18/2024 Nena Ortiz Flank pain R10.9 ; Fatty liver K76.0 and Frequent urination R35.0 [facility] [address] [address] 12/20/2024 Nena Diana Kidney stones N20.0 ; CRP elevated R79.82 and Acquired hypothyroidism E03.9 [facility] [address] [place] [address] 11/23/2024 Nena [facility] [address] [place] [address] 01/11/2025 N[facility] [address] [place] [address] 08/10/2024 Nena [facility] [address] [place] [address] 08/10/2024 Nena [facility] [address] [place] [address] 11/16/2024 [facility] [address] [place] [address] 11/20/2024 [facility] [address] [place] [address] 11/20/2024 Nena [facility] [address] [place] [address] 11/24/2024 [facility] [address] [place] [address] 12/27/2024 Nena Diana Assessments Encounter Date Diagnosis (ICD Code) Assessment Notes Treatment Notes Treatment Clinical Notes Section Notes 11/18/2024 Fatty liver (ICD-10 - K76.0) 11/18/2024 Flank pain (ICD-10 - R10.9) No acute abdomen but p aware to call back in sx worsen U/A no infection prliminar but calcium stones debris ? kidney stones 10/15/2024 Left foot pain (ICD-10 - M79.672) [...] further increase the medication(s). Weight loss recommended 12/20/2024 Kidney stones (ICD-10 - N20.0) p [...] remains out of work due to pain 09/17/2024 Left foot pain (ICD-10 - M79.672) [...] Cytology 09/17/2024 Urine Cytology 11/18/2024 Urine Cytology 12/20/2024 Urine Cytology 10/15/2024 X ray : LS Spine 11/18/2024 Ultrasound : Abdominal 11/18/2024 IRON, TIBC AND FERRITIN PANEL 09/17/2024 IRON, TIBC AND FERRITIN PANEL 10/15/2024 LIPID PANEL WITH REFLEX TO DIRECT LDL LIPID PANEL WITH REFLEX TO DIRECT LDL COMPREHENSIVE METABOLIC PANEL 09/17/2024 COMPREHENSIVE METABOLIC PANEL 10/15/2024 CBC (H/H, RBC, INDICES, WBC, PLT) 2023 CBC (H/H, RBC, INDICES, WBC, PLT) 2023 CBC (H/H, RBC, INDICES, WBC, PLT) 2024 URINALYSIS, COMPLETE W/REFLEX TO CULTURE 09/17/2024 URINALYSIS, COMPLETE W/REFLEX TO CULTURE 10/15/2024 C-REACTIVE PROTEIN 10/15/2024 HEMOGLOBIN A1c 10/15/2024 HEMOGLOBIN A1c 09/17/2024 VITAMIN B12 09/17/2024 VITAMIN B12 10/15/2024 VITAMIN D, 1,25 DIHYDROXY LC/MS/MS 10/15 Physical Therapy- Evaluate and Treat TSH+FREE T4 09/17/2024 TSH+FREE T4 12/20/2024 TSH+FREE T4 10/15/2024 Insurance Providers Payer Name Payer Address Payer Phone Subscriber Number Group Number Insured Name Patient Relationship to Insured Coverage Start Date Coverage End Date [employer] and [employer] [facility] [address] [place] [address] [id number] Thuan Nguyen Self - patient is the insured Medical (General) History Medical History History ICD Code Mild intermittent asthma without complic ation J45.20 Other migraine without status migrainosu s, not intractable G43.809 Mood disorder F39
[2025-06-03 08:57] LABS: MANUAL DIFF FLAG NO
[2025-06-03 09:13] LABS: Hematocrit 44.1 % (42.0-52.0); Hemoglobin 15.2 g/dl (14.0-18.0); Imm Gran Abs Auto 0.01 X10*3/uL (0.00-0.03); Imm Gran Pct Auto 0.2 % (0.0-0.4); Lymphocytes Absolute Auto 1.8 X10*3/uL (1.2-4.9); Mean Corpuscular HGB Conc 34.5 g/dl (31.0-36.0); Mean Corpuscular Hemoglobin 27.5 pg (27.0-33.0); Mean Corpuscular Volume 79.7 fL (80.0-98.0); NRBC Abs Auto 0.000 X10*3/uL (0.0-0.012); NRBC Pct Auto 0.0 /100WBC (0.0-0.2); Platelet Count 278 X10*3/uL (160-400); Red Blood Count 5.53 X10*6/uL (4.60-5.80); White Blood Count 6.5 X10*3/uL (4.8-10.8)
[2025-06-03 09:15] LABS: Appearance Urine Clear; Glucose Urine UA Negative (Negative); PH 6.5 (5.0-9.0); Specific Gravity - Urine 1.025 (1.005-1.025)
[2025-06-03 09:24] LABS: Hemoglobin A1C 136.2746 umol/L; Total Hemoglobin (HGBA1C) 3892.8672 umol/L
[2025-06-03 09:49] LABS: Alanine Aminotransferase 34 U/L (0-40); Albumin Level 4.7 g/dL (3.5-5.0); Alkaline Phosphatase 56 U/L (39-117); Anion Gap 12 (12-20); Aspartate Amino Transferase 31 U/L (5-37); Blood Urea Nitrogen 14 mg/dL (9-16); Calcium 9.5 mg/dL (8.4-10.2); Carbon Dioxide 28 mmol/L (22-29); Chloride 108 mmol/L (96-108); Cholesterol 172 mg/dL (<200); Estimated Glomerular Filt Rate > 60; HDL Cholesterol 32 mg/dL (>40); Magnesium 2.0 mg/dL (1.6-2.6); Potassium 4.2 mmol/L (3.3-5.1); Sodium 144 mmol/L (135-145); Total Protein 7.7 g/dL (6.5-8.0); Triglycerides 449 mg/dL (<150)
[2025-06-03 09:58] LABS: HBS Num1 665.43 mIU/mL (0-7.99); HBc Num1 0.11 S/CO (0.00-0.79); HBsAGNum1 0.36 S/CO (0.00-0.99); Hepatitis B Surface Antigen Negative (Negative); ~HepC Num1 0.09 S/CO (0.00-0.79); ~Hepatitis B Surface Antibody REACTIVE (Nonreactive); ~Hepatitis C Antibody Nonreactive (Nonreactive)
[2025-06-03 10:10] LABS: Ferritin 174 ng/mL (20-250); Folate 8.2 ng/mL (> or = 4.0); Free T4 (Free Thyroxine) 0.95 ng/dL (0.71-1.85); Thyroid Stimulating Hormone 3.40 uIU/mL (0.32-4.0); Vitamin B12 533 pg/mL (200-900)
== END 2025-06-03 08:35 | disposition home or self-care (01) ==
LOC: HO.LAB 08:34
PROVIDERS: PCP Internal Medicine; Visit Provider Internal Medicine
DX: G43.119 Migraine with aura, intractable, without status migrainosus (principal); R30.0 Dysuria; R79.89 Other specified abnormal findings of blood chemistry; N28.9 Disorder of kidney and ureter, unspecified; E78.00 Pure hypercholesterolemia, unspecified
CPT/HCPCS: 36415; 80053; 80061; 81003; 82248; 82607; 82728; 82746; 83036; 83735; 84439; 84443; 85025; 86704; 86706; 86803; 87340

== ENCOUNTER 2025-06-29 08:13 | Outpatient (AMB) | payer BC, SELFPAY ==
--- OUTSIDE RECORDS SUMMARY | 2025-06-29 08:16 | XMS_ITS | Clinical Summary ---
Author Organization [facility] Address [address] [place] [address] Care Team Providers Care Sign Letterer Name Role Phone Rosamaria Sam MD Primary Care Provider [phone] Allergies No known active allergies Medications No [...] age to complete this topic Care Teams Sign Letterer Relationship Specialty Start Date End Date Po, Rosamaria Jerome MD [address] [place] [address] [address] [facility] [place] [address] PCP - General Internal Medicine 07/03/24
--- OUTSIDE RECORDS SUMMARY | 2025-06-29 08:18 | XMS_ITS | Patient Health Record ---
Author Organization [facility] Address [address] [address] Care Team Providers Care Electrical Designer Name Role Phone Nena Ortiz Primary Care Provider [phone] Allergies No Known Allergies Results Component Value Reference Range Notes TSH+FREE T4 Reviewed date:11/13/2024 09:17:35 PM Interpretation: Performing Lab:NL1, [facility] [place], [place] [id number] Jamia Cannon M.D. Notes/Report: TSH 5.55 0.40-4.50 mIU/L T4, FREE 1.1 0.8-1.8 ng/dL LIPID PANEL WITH REFLEX TO D IRECT LDL Reviewed date:11/13/2024 09:17:35 PM Interpretation: Performing Lab:NL1, [facility] [place], [place] [id number] Jamia Cannon M.D. Notes/Report: CHOLESTEROL, TOTAL 132 [...] LDL-C. Pradip SS et al. BOBBI. 2013;310(19): 5771-4046 (http://education.Votigo/faq/LKC342) CHOL/HDLC RATIO 4.4 <5.0 (calc) NON HDL CHOLESTEROL 102 <130 mg/dL (calc) For patients with diabetes plus 1 major ASCVD risk factor, treating to a non-HDL-C goal of <100 mg/dL (LDL-C of <70 mg/dL) is considered a therapeutic option. IRON, TIBC AND FERRITIN PANE L Reviewed date:11/13/2024 09:17:35 PM Interpretation: Performing Lab:NL1 [facility] [address] Jamia Cannon M.D. Notes/Report: IRON, TOTAL 55 50-180 mcg/dL IRON BINDING CAPACITY 244 250-425 mcg/dL (juan jose c) % SATURATION 23 20-48 % (calc) FERRITIN 109 38-380 ng/mL URINE CYTOLOGY Reviewed date:11/28/2024 09:26:19 AM Interpretation: Performing Lab:NL1, [facility] [address] Jamia Cannon M.D. Notes/Report: SCREENER RMM, CT(ASCP) CT screening location: [place] [address] PATHOLOGIST Néstor Diaz M.D., Board Certified in Anatomic Pathology, Clinical Pathology and Cytopathology (electronic signature) A SOURCE Urine A PROCEDURE Cytology A GROSS DESCRIPTION The name on the container is in agreement with the requisition. 50 ml of clear, pale yellow fluid, received in Cytolyt fixative and processed by the ThinPrep method. (DC)11/16/2024 Gross exam(s) performed at: [facility] [address] [address] Chinese Medicine Practitioner: JAMIA CANNON MD A DIAGNOSIS NEGATIVE FOR HIGH-GRADE UROTHELIAL CARCINOMA. - BENIGN UROTHELIAL AND SQUAMOUS CELLS PRESENT. QUESTASSURED 25-OH VIT D, (D 2,D3), LC/MS/MS Reviewed date:11/13/2024 09:17:35 PM Interpretation: Performing Lab:[facility]BELLA1 [facility] [address] Jamia Cannon M.D. Notes/Report: VITAMIN D,25-OH,TOTAL,IA 28 30-100 ng/mL Vitamin D Status 25-OH Vitamin D: Deficiency: <20 ng/mL Insufficiency: 20 - 29 ng/mL Optimal: > or = 30 ng/mL For 25-OH Vitamin D testing on patients on D2-supplementation and patients for whom quantitation of D2 and D3 fractions is required, the QuestAssureD(TM) 25-OH VIT D, (D2,D3), LC/MS/MS is recommended: order code 18228 (patients >2yrs). See Note 1 Note 1 For additional information, please refer to http://education.Branded Payment Solutions/faq/KPO364 (This link is being provided for informational/ educational purposes only.) VITAMIN B12 Reviewed date:11/13/2024 09:17:35 PM Interpretation: Performing Lab:ANNABELLA1, [facility] [address] Jamia Cannon M.D. Notes/Report: VITAMIN B12 663 025-2960 pg/mL HEMOGLOBIN A1c Reviewed date:11/13/2024 09:17:35 PM Interpretation: Performing Lab:ANNABELLA1 [facility] [address] Jamia Cannon M.D. Notes/Report: HEMOGLOBIN A1c [...] diagnosis of diabetes in children. According to [place] Diabetes Association (ADA) guidelines, hemoglobin A1c <7.0% represents optimal control in non- diabetic patients. Different metrics may apply to specific patient populations. Standards of Medical Care in Diabetes(ADA). C-REACTIVE PROTEIN Reviewed date:11/13/2024 09:17:35 PM Interpretation: Performing Lab:ANNABELLA1 [facility] [place], [place] [phone] Jamia Cannon M.D. Notes/Report: C-REACTIVE PROTEIN 9.7 <8.0 mg/L URINALYSIS, COMPLETE W/REFLE X TO CULTURE Reviewed date:11/13/2024 09:17:35 PM Interpretation: Performing Lab:ANNABELLA1, [facility] [place], [place] [phone] Jamia Cannon M.D. Notes/Report: COLOR YELLOW YELLOW [...] Reviewed date:11/13/2024 09:17:35 PM Interpretation: Performing Lab:NL1, [facility] [address] [place], [place] [phone] Jamia Cannon M.D. Notes/Report: WHITE BLOOD CELL [...] MPV 10.0 7.5-12.5 fL ABSOLUTE NEUTROPHILS 2865 4693-1248 cells/uL ABSOLUTE LYMPHOCYTES 0654 044-2836 cells/uL ABSOLUTE MONOCYTES 458 200-950 cells/uL ABSOLUTE EOSINOPHILS 276 15-500 cells/uL ABSOLUTE BASOPHILS 31 0-200 cells/uL NEUTROPHILS 55.1 LYMPHOCYTES 30.2 MONOCYTES 8.8 EOSINOPHILS 5.3 BASOPHILS 0.6 COMPREHENSIVE METABOLIC PANE L Reviewed date:11/13/2024 09:17:35 PM Interpretation: Performing Lab:[facility] [address] Jamia Cannon M.D. Notes/Report: GLUCOSE 96 [...] 20 10-40 U/L ALT 25 9-46 U/L C-REACTIVE PROTEIN Reviewed date:12/28/2024 08:04:32 AM Interpretation: Performing Lab:[facility] [address] Jamia Cannon M.D. Notes/Report: FASTING:YES SPECIALIZED COLLECTION. PATIENT REFERRED TO ALTERNATE SITE. FASTING: YES C-REACTIVE PROTEIN <3.0 <8.0 mg/L URINALYSIS, COMPLETE W/REFLE X TO CULTURE Reviewed date:12/28/2024 08:04:32 AM Interpretation: Performing Lab:[facility] [address] Jamia Cannon M.D. Notes/Report: FASTING:YES SPECIALIZED [...] Reviewed date:12/28/2024 08:04:32 AM Interpretation: Performing Lab:NL1, [facility] [address] Jamia Cannon M.D. Notes/Report: FASTING:YES SPECIALIZED [...] Reviewed date:12/28/2024 08:04:32 AM Interpretation: Performing Lab:NL1, [facility] [address] Jamia Cannon M.D. Notes/Report: FASTING:YES SPECIALIZED COLLECTION. PATIENT REFERRED TO ALTERNATE SITE. FASTING: YES IRON, TOTAL 93 50-180 mcg/dL IRON BINDING CAPACITY 235 250-425 mcg/dL (juan jose c) % SATURATION 40 20-48 % (calc) FERRITIN 149 38-380 ng/mL URINALYSIS, COMPLETE W/REFLE X TO CULTURE Reviewed date:11/28/2024 09:26:19 AM Interpretation: Performing Lab:[facility], [facility] [address] Jamia Cannon M.D. Notes/Report: FASTING: NO [...] NO C ULTURE INDICATED URINE CYTOLOGY Reviewed date:12/28/2024 08:04:32 AM Interpretation: Performing Lab:[facility], [facility] [place] [phone] Jamia Cannon M.D. Notes/Report: SCREENER , CT(ASCP) CT screening location: [place] [address] PATHOLOGIST Marion Farrell M.D., Board Certified in Anatomic and Clinical Pathology (electronic signature) A SOURCE Urine A PROCEDURE Cytology A GROSS DESCRIPTION The name on the container is in agreement with the requisition. 50 ml of clear, dark yellow fluid, received in Cytolyt fixative and processed by the ThinPrep method. (DC)12/23/2024 Gross exam(s) performed at: [facility] [address] [address] Chinese Medicine Practitioner: JAMIA CANNON MD A DIAGNOSIS NEGATIVE FOR HIGH-GRADE UROTHELIAL CARCINOMA. - BENIGN UROTHELIAL AND SQUAMOUS CELLS PRESENT. Red blood cells present. Acute inflammation present. CLIENT EDUCATION TRACKING Reviewed date:11/28/2024 09:26:19 AM Interpretation: Performing Lab:NL1, [facility] [place], [place] [address] Jamia Cannon M.D. Notes/Report: FASTING: NO CLIENT EDUCATION TRACKING The Requisition we received did not include a [facility] account number. To prevent delays in testing and processing of your orders please provide the following information with every order submitted: [facility] account number and account name Client address Client phone and fax number NPI number of ordering physician along with the physician name. TSH W/REFLEX TO FT4 Reviewed date:12/28/2024 08:04:32 AM Interpretation: Performing Lab:ANNABELLA1, [facility] [address] Jamia Cannon M.D. Notes/Report: FASTING:YES SPECIALIZED COLLECTION. PATIENT REFERRED TO ALTERNATE SITE. FASTING: YES TSH W/REFLEX TO FT4 3.20 0.40-4.50 mIU/L CBC (INCLUDES DIFF/PLT) Reviewed date:12/28/2024 08:04:32 AM Interpretation: Performing Lab:NL1, [facility] [address] Jamia Cannon M.D. Notes/Report: FASTING:YES SPECIALIZED [...] MPV 9.8 7.5-12.5 fL ABSOLUTE NEUTROPHILS 2672 8129-2104 cells/uL ABSOLUTE LYMPHOCYTES 2752 124-7353 cells/uL ABSOLUTE MONOCYTES 459 200-950 cells/uL ABSOLUTE [...] Status Risk Notes Problem Vitamin D deficiency (96575817) Vitamin D deficiency (E55.9) Active confirmed Problem Mood disorder (13852006) Mood disorder (F39) Active confirmed Problem Kidney stone (81986618) Kidney stones (N20.0) Active confirmed Problem Fatty liver (738231134) Fatty liver (K76.0) Active confirmed Problem Acquired hypothyroidism (652506563) Acquired hypothyroidism (E03.9) Active confirmed Problem Mild intermittent asthma (016023803) Mild intermittent asthma without complication (J45.20) Active confirmed Problem C-reactive protein abnormal (270031292) CRP elevated (R79.82) Active confirmed Problem Essential hypertension (31705390) Hypertension, unspecified type (I10) Active confirmed Problem Migraine without aura, not refractory (766493439) Other migraine without status migrainosus, not intractable [...] Date Provider Diagnosis [facility] [address] [address] 08/10/2024 Nena Ortiz Hypertension, unspecified type I10 [facility] [address] [address] 09/17/2024 Nena Ortiz Encounter for genera l adult medical examination with abnormal findings Z00.01 ; Hypertension, unspecified type I10 ; Left foot pain M79.672 and Other migraine without status migrainosus, not intractable G43.809 [facility] [address] [address] 10/15/2024 Nena Ortiz Left foot pain M79.6 72 and Left lateral ankle pain M25.572 [facility] [address] [place] [phone] 11/18/2024 Nena Ortiz Flank pain R10.9 ; Fatty liver K76.0 and Frequent urination R35.0 [facility] [address] [address] 12/20/2024 Nena Diana Kidney stones N20.0 ; CRP elevated R79.82 and Acquired hypothyroidism E03.9 [facility] [address] [place] [address] 11/23/2024 Nenakatiana Barrett Md [address] [place] [address] 01/11/2025 Nena Barrett Md [address] [place] [address] 08/10/2024 Nena Barrett Md [address] [place] [address] 08/10/2024 Nena [facility] [address] [place] [address] 11/16/2024 Nena Barrett Md [address] [place] [address] 11/20/2024 Nena Barrett Md [address] [place] [address] 11/20/2024 Nena Barrett Md [address] [place] [address] 11/24/2024 Nena Barrett Md [address] [place] [address] 12/27/2024 Nena Ortiz Assessments Encounter Date Diagnosis [...] Coverage End Date [employer] and [employer] [facility] [address] [place] [address] [id number] [id number] Thuan Nguyen Self - patient is the insured Medical (General) History Medical History History ICD Code Mild intermittent asthma without complic ation J45.20 Other migraine without status migrainosu s, not intractable G43.809 Mood disorder F39
--- OUTSIDE RECORDS SUMMARY | 2025-06-29 08:18 | XMS_ITS | Clinical Summary ---
[facility] Organization [facility] Address [address] [place] [address] Care Team Providers Care Nnp Name Role Phone Rosamaria Sam MD Primary Care Provider [phone] Immunizations Name Administration Dates Next Due Pfizer [...] series) 2009 Cholesterol Screening (Lipid Panel) 10/20/2022 HIV Screening 10/20/2022 Hepatitis C Screening 10/20/2022 Social Influencers of Health Screening 10/20/2022 DTaP,Tdap,and Td Vaccines (2 - Td or Tdap) 09/17/2023 09/17/2013 COVID-19 Vaccine (3 2023-2 5 season) 2024 08/16/2021, 07/26/2021 Depression Screening 11/17/2024 Influenza Vaccine (#1) 2025 , 01/05/2021 HIB [...] age to complete this topic Care Teams Nnp Relationship Specialty Start Date End Date Rosamaria Sam MD [address] [place] [address] [address] [facility] [place] [address] PCP - General 07/03/24
--- OUTSIDE RECORDS SUMMARY | 2025-06-29 08:18 | XMS_ITS | Encounter Summary ---
Author Organization [facility] Address [address] [place] [address] Care Team Providers Care Senior Principal Process Engineer Name Role Phone Unavailable Primary Care Provider Unavailabl e Encounter Details Date Type Department Care Team (Late st Contact Info) Description 06/16/2020 Lab Requisition [facility] [address] [phone] Michele Hwang PA-C [address] [place] [address] Encounter for laboratory testing for COVID-19 virus [...] DETECTED NOT DETECTED 06/17/2020 3:00 PM EDT [facility] Comment: A Not Detected (negative) [...] providers and patients using the following websites: https://www.Paraytec.Treasure Data/home/Covid-19/HCP/QuestLDTP/ fact-sheet https://www.Paraytec.Treasure Data/home/Covid19/Patients/QuestLDTP/ fact-sheet.html This test has been authorized by the FDA under an Emergency Use Authorization (EUA) for use by authorized laboratories. Due to the current public health emergency, [facility] is receiving a high volume of samples [...] about COVID-19 can be found at the [facility] website: www.Camp[employer].Treasure Data/Covid19. Microbiology Nasopharyngeal swab / Unknown 06/16/2020 1:24 PM EDT 06/16/2020 1:24 PM EDT [facility] - 06/17/2020 3:00 PM EDT Performing Organization Information: Site ID: [id number] Name: [facility] Address: [address] [place] [address],[place] [address] Director: JAMIA CANNON MD [facility] License number [id number] Michele Hwang PA-C BODY FLUIDS AND STOOLS OR DERABLES Final Result Performing Organization Address City/State/[facility] Co de Phone Number [facility] documented in this encounter Visit Diagnoses Diagnosis Encounter for laboratory testing for COVID-19 virus documented in this encounter
--- NOTE | 2025-06-29 08:24 | AM.OFFWIN_ITS ---
Intake Vital Signs 06/29/25 08:25 Height 6 ft Weight 281 lb BMI 38.1 BP 116/72 Blood Pressure Location Lt brachial Position Sitting Pulse 87 Pulse Source Pulse Oximeter Temp 98.1 F Temp Source Oral Pulse Oximetry (%) 96 Oxygen Delivery Method Room Air Intake Visit Reasons: EP Chafing from running Patient Tobacco Use Status: Never used Tobacco Technical Writer Required: No Allergies No Known Allergies Allergy (Verified 06/02/25 10:49) Do you need a note to return to daycare/school/sports/work: No HPI HPI Comments History of Present Illness Details History - The patient is a 34-year-old male pres enting with chafing and possible yeast infection. - Reports significant chafing due to inc reased running activity, leading to erythema and tenderness. - Arxe-ads-qceritk remedies such as baby powder and air drying have been ineffective. - noted irritation in the crack of his buttocks. 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 - He denies new lotions, soaps, detergen ts, medications, foods, pets, clothes, or travel. Physical Exam General: Cooperative, healthy appearing, comfortable, no acute distress and well developed Orientation: Patient oriented x3 Limitations: No limitations Respiratory: Normal respiratory effort and able to speak in complete sentences. Clear to auscultation bilaterally. No w/r/r noted. Cardiovascular: RRR, no m/r/g noted. Normal S1 and S2 Skin: Erythema and white flaking noted in the groin bilaterally. No lesions noted. No drainage or discharge noted. Patient was informed and verbally consented to the use of an ambient scribe for clinic note documentation during this visit [facility] Medical History (Updated 06/15/25 @ 23:51 by Loebardo Latham MD) BMI 39.0-39.9,adult LFT elevation Asthma Morbid obesity Ankle sprain Vasectomy evaluation Anxiety about health Laceration of left thumb Headache Chronic migraine without aura COVID-19 virus infection Viral infection Ear pain, right Otitis media, right Daytime sleepiness Pharyngitis Otitis media Upper respiratory tract infection SOB (shortness of breath) Left carotid bruit Chest pain Puncture wound of finger of left hand IBS (irritable bowel syndrome) Lumbar disc disease Plantar fasciitis, bilateral Sciatic leg pain Tinnitus PTSD (post-traumatic stress disorder) Generalized anxiety disorder Obesity (BMI 30-39.9) Surgical History H/O vasectomy Family History Mother No problems noted. Father No problems noted. Daughter No problems noted. Son No problems noted. Daughter No problems noted. Brother No problems noted. Sister No problems noted. Sister No problems noted. Other Lupus Mental health disorder Social History Housing: House Alcohol intake: current Alcohol intake frequency: a few times a week Comment: 3x a week 2 drinks Patient Tobacco Use Status: Never used Tobacco Tobacco use type: Cigarette e-Cigarette/Vaping Use: Never Used Second Hand Smoke Exposure: No service: Yes Current occupational status: employed Cognitive needs: No Hearing needs: No Vision needs: Yes Review of Systems Const All systems reviewed & are unremarkable except as noted in HPI and below Physical Exam Vital Signs: Last Vital Signs Temp 98.1 F 06/29/25 08:25 Pulse 87 06/29/25 08:25 BP 116/72 06/29/25 08:25 Pulse Ox 96 06/29/25 08:25 Oxygen Delivery Method Room Air 06/29/25 08:25 BMI result Body Mass Index 38.1 Assessment & Plan Assessment & Plan (1) Rash: Code(s): R21 - Rash and other nonspecific skin eruption Plan Most likely Chafing With Possible Yeast Infection Plan - Prescribe a combination cream containing a steroid and antifungal agent to address inflammation and potential yeast infection. - Prescribe an oral antifungal medication similar to those used for treating yeast infections in females. - Consider a short course of prednisone to reduce inflammation. - Recommend the use of an emollient cream to prevent further chafing during physical activity. Medications: New clotrimazole-betamethasone 1-0.05 % 1 appl topical BID 30 mL 0RF 2 weeks emollient combination no.119 (Eucerin Advanced Repair topical cream) 1 appl topical BID PRN 454 grams 0RF dry skin prednisone 40 mg (2 x 20 mg) PO DAILY 10 tabs 0RF fluconazole may repeat second dose 72 hrs after first dose if symptoms persist 150 mg PO Q3D 2 tabs 0RF Coding Level of Care Code Est Pt Level 3 (12364) Diagnoses Rash R21
[2025-06-29 08:25] VITALS: BP 116/72; PULSE 87; TEMP 36.7; O2SAT 96; BMI 38.1
== END 2025-06-29 10:00 | disposition home or self-care (01) ==
PROVIDERS: PCP Internal Medicine; Visit Provider Physician Assistant Medical
DX: R21 Rash and other nonspecific skin eruption (principal)

== ENCOUNTER 2025-07-11 08:43 | Outpatient (REF) | payer BC, SELFPAY ==
--- OUTSIDE RECORDS SUMMARY | 2025-07-11 09:14 | XMS_ITS | Clinical Summary ---
Author Organization [facility] Address [address] [place] [address] Care Team Providers Care Gear Finisher Name Role Phone Rosamaria Sam MD Primary Care Provider [phone] Allergies No known active allergies Medications No [...] age to complete this topic Care Teams Gear Finisher Relationship Specialty Start Date End Date Po, Rosamaria Jerome MD [address] [place] [address] [address] [facility] [place] [address] PCP - General Internal Medicine 07/03/24
--- OUTSIDE RECORDS SUMMARY | 2025-07-11 09:14 | XMS_ITS | Clinical Summary ---
Author Organization [facility] Address [address] [place] [address] Care Team Providers Care Farmer [employer] Name Role Phone Rosamaria Sam MD Primary Care Provider [phone] Immunizations Name Administration Dates Next Due Pfizer [...] age to complete this topic Care Teams Farmer [employer] Relationship Specialty Start Date End Date Rosamaria Sam MD [address] [place] [address] Dr [address] [facility] [place] [address] PCP - General 07/03/24
--- OUTSIDE RECORDS SUMMARY | 2025-07-11 09:15 | XMS_ITS | Patient Health Record ---
Author Organization [facility] Address [address] [address] Care Team Providers Care Wood Mill Supervisor Name Role Phone Nena Ortiz Primary Care Provider Allergies No Known Allergies Results Component Value Reference Range Notes URINE CYTOLOGY Reviewed date:11/28/2024 09:26:19 AM Interpretation: Performing Lab:NL1, [facility] [place], [place] [address] Shayan Cannon M.D. Notes/Report: [facility] screening location: [place] [address] PATHOLOGIST Néstor Diaz M.D., Board Certified in Anatomic Pathology, Clinical Pathology and Cytopathology (electronic signature) A SOURCE Urine A PROCEDURE Cytology A GROSS DESCRIPTION The name on the container is in agreement with the requisition. 50 ml of clear, pale yellow fluid, received in Cytolyt fixative and processed by the ThinPrep method. (DC)11/16/2024 Gross exam(s) performed at: [facility] [address] [place] [address] Pharmaceutical Botanist: SHAYAN CANNON MD A DIAGNOSIS NEGATIVE FOR HIGH-GRADE UROTHELIAL CARCINOMA. - BENIGN UROTHELIAL AND SQUAMOUS CELLS PRESENT. CLIENT EDUCATION TRACKING Reviewed date:11/28/2024 09:26:19 AM Interpretation: Performing Lab:NL1, [facility]-[address] [place], [place] [address] Shayan Cannon M.D. Notes/Report: FASTING: NO CLIENT EDUCATION TRACKING The Requisition we received did not include a [facility] account number. To prevent delays in testing and processing of your orders please provide the following information with every order submitted: [facility] account number and account name Client address Client phone and fax number NPI number of ordering physician along with the physician name. C-REACTIVE PROTEIN Reviewed date:12/28/2024 08:04:32 AM Interpretation: Performing Lab:NL1, [facility] [address] Shayan Cannon M.D. Notes/Report: FASTING: YES SPECIALIZED COLLECTION. PATIENT REFERRED TO ALTERNATE SITE. FASTING:YES C-REACTIVE PROTEIN <3.0 <8.0 mg/L URINALYSIS, COMPLETE W/REFLE X TO CULTURE Reviewed date:12/28/2024 08:04:32 AM Interpretation: Performing Lab:NL1, [facility] [address] Shayan Cannon M.D. Notes/Report: FASTING:YES SPECIALIZED [...] L Reviewed date:12/28/2024 08:04:32 AM Interpretation: Performing Lab:1, [facility] [address] Shayan Cannon M.D. Notes/Report: FASTING:YES SPECIALIZED [...] L Reviewed date:12/28/2024 08:04:32 AM Interpretation: Performing Lab:[facility] [address] Shayan Cannon M.D. Notes/Report: FASTING:YES SPECIALIZED COLLECTION. PATIENT REFERRED TO ALTERNATE SITE. FASTING: YES IRON, TOTAL 93 50-180 mcg/dL IRON BINDING CAPACITY 235 250-425 mcg/dL (juan jose c) % SATURATION 40 20-48 % (calc) FERRITIN 149 38-380 ng/mL URINALYSIS, COMPLETE W/REFLE X TO CULTURE Reviewed date:11/28/2024 09:26:19 AM Interpretation: Performing Lab:[facility] [address] Shayan Cannon M.D. Notes/Report: FASTING: NO [...] Reviewed date:12/28/2024 08:04:32 AM Interpretation: Performing Lab:NL1, [id number], [place] Shayan Cannon M.D. Notes/Report: SCREENER K[facility], CT(ASCP) CT screening location: [place] [address] PATHOLOGIST Marion Farrell M.D., Board Certified in Anatomic and Clinical Pathology (electronic signature) A SOURCE Urine A PROCEDURE Cytology A GROSS DESCRIPTION The name on the container is in agreement with the requisition. 50 ml of clear, dark yellow fluid, received in Cytolyt fixative and processed by the ThinPrep method. (DC)12/23/2024 Gross exam(s) performed at: [facility] [address] [address] Pharmaceutical Botanist: SHAYAN CANNON MD A DIAGNOSIS NEGATIVE FOR HIGH-GRADE UROTHELIAL CARCINOMA. - BENIGN UROTHELIAL AND SQUAMOUS CELLS PRESENT. Red blood cells present. Acute inflammation present. TSH W/REFLEX TO FT4 Reviewed date:12/28/2024 08:04:32 AM Interpretation: Performing Lab:NL1, [facility] [place] [phone] Shayan Cannon M.D. Notes/Report: FASTING:YES SPECIALIZED COLLECTION. PATIENT REFERRED TO ALTERNATE SITE. FASTING: YES TSH W/REFLEX TO FT4 3.20 0.40-4.50 mIU/L CBC (INCLUDES DIFF/PLT) Reviewed date:12/28/2024 08:04:32 AM Interpretation: Performing Lab:NL1, [facility] [address] Shayan Cannon M.D. Notes/Report: FASTING:YES SPECIALIZED [...] MPV 9.8 7.5-12.5 fL ABSOLUTE NEUTROPHILS 2672 0153-3384 cells/uL ABSOLUTE LYMPHOCYTES 4342 622-6313 cells/uL ABSOLUTE MONOCYTES 459 200-950 cells/uL ABSOLUTE EOSINOPHILS 128 15-500 cells/uL ABSOLUTE BASOPHILS 61 0-200 cells/uL NEUTROPHILS 52.4 LYMPHOCYTES 34.9 MONOCYTES 9.0 EOSINOPHILS 2.5 BASOPHILS 1.2 TSH+FREE T4 Reviewed date:11/13/2024 09:17:35 PM Interpretation: Performing Lab:NL1, [facility] [address] Shayan Cannon M.D. Notes/Report: TSH 5.55 0.40-4.50 mIU/L T4, FREE 1.1 0.8-1.8 ng/dL [facility] 25-OH VIT D, (D 2,D3), LC/MS/MS Reviewed date:11/13/2024 09:17:35 PM Interpretation: Performing Lab:NL1, [facility] [address] Shayan Cannon M.D. Notes/Report: VITAMIN D,25-OH,TOTAL,IA 28 30-100 ng/mL Vitamin D Status 25-OH Vitamin D: Deficiency: <20 ng/mL Insufficiency: 20 - 29 ng/mL Optimal: > or = 30 ng/mL For 25-OH Vitamin D testing on patients on D2-supplementation and patients for whom quantitation of D2 and D3 fractions is required, the QuestAssureD(TM) 25-OH VIT D, (D2,D3), LC/MS/MS is recommended: order code 33963 (patients >2yrs). See Note 1 Note 1 For additional information, please refer to http://education.[employer]com/faq/UVA477 (This link is being provided for informational/ educational purposes only.) VITAMIN B12 Reviewed date:11/13/2024 09:17:35 PM Interpretation: Performing Lab:[facility] [place] [id number] Shayan Cannon M.D. Notes/Report: VITAMIN B12 304 668-4748 pg/mL HEMOGLOBIN A1c Reviewed date:11/13/2024 09:17:35 PM Interpretation: Performing Lab:[facility] [place] [id number] Shayan Cannon M.D. Notes/Report: HEMOGLOBIN A1c 5.5 [...] diagnosis of diabetes in children. According to [place] [employer] Association (ADA) guidelines, hemoglobin A1c <7.0% represents optimal control in non- diabetic patients. Different metrics may apply to specific patient populations. Standards of Medical Care in Diabetes(ADA). C-REACTIVE PROTEIN Reviewed date:11/13/2024 09:17:35 PM Interpretation: Performing Lab:[facility] [address] Shayan Cannon M.D. Notes/Report: C-REACTIVE PROTEIN 9.7 <8.0 mg/L URINALYSIS, COMPLETE W/REFLE X TO CULTURE Reviewed date:11/13/2024 09:17:35 PM Interpretation: Performing Lab:[facility] [address] Shayan Cannon M.D. Notes/Report: COLOR YELLOW [...] DIFF/PLT) Reviewed date:11/13/2024 09:17:35 PM Interpretation: Performing Lab:1 [facility] [address] Shayan Cannon M.D. Notes/Report: WHITE BLOOD [...] MPV 10.0 7.5-12.5 fL ABSOLUTE NEUTROPHILS 2865 8797-5263 cells/uL ABSOLUTE LYMPHOCYTES 2450 934-2399 cells/uL ABSOLUTE MONOCYTES 458 200-950 cells/uL ABSOLUTE EOSINOPHILS 276 15-500 cells/uL ABSOLUTE BASOPHILS 31 0-200 cells/uL NEUTROPHILS 55.1 LYMPHOCYTES 30.2 MONOCYTES 8.8 EOSINOPHILS 5.3 BASOPHILS 0.6 COMPREHENSIVE METABOLIC PANE L Reviewed date:11/13/2024 09:17:35 PM Interpretation: Performing Lab:[facility] [address] Shayan Cannon M.D. Notes/Report: GLUCOSE 96 [...] Reviewed date:11/13/2024 09:17:35 PM Interpretation: Performing Lab:NL1, [facility] [place], [place] [address] Shayan Cannon M.D. Notes/Report: CHOLESTEROL, TOTAL 132 [...] LDL-C. Pradip SS et al. BOBBI. 2013;310(19): 0574-5040 (http://education.[employer]/faq/ZRR369) CHOL/HDLC RATIO 4.4 <5.0 (calc) NON HDL CHOLESTEROL 102 <130 mg/dL (calc) For patients with diabetes plus 1 major ASCVD risk factor, treating to a non-HDL-C goal of <100 mg/dL (LDL-C of <70 mg/dL) is considered a therapeutic option. IRON, TIBC AND FERRITIN PANE L Reviewed date:11/13/2024 09:17:35 PM Interpretation: Performing Lab:NL1, [facility] [address] [place], [place] [address] Shayan Cannon M.D. Notes/Report: IRON, TOTAL 55 50-180 mcg/dL IRON BINDING CAPACITY 244 250-425 mcg/dL (juan jose c) % SATURATION 23 20-48 % (calc) FERRITIN 109 38-380 ng/mL Reason For Referral Reason P [...] Status Risk Notes Problem Vitamin D deficiency (32545118) Vitamin D deficiency (E55.9) Active confirmed Problem Mood disorder (32260015) Mood disorder (F39) Active confirmed Problem Kidney stone (22563799) Kidney stones (N20.0) Active confirmed Problem Fatty liver (540705156) Fatty liver (K76.0) Active confirmed Problem Acquired hypothyroidism (209548977) Acquired hypothyroidism (E03.9) Active confirmed Problem Mild intermittent asthma (199951656) Mild intermittent asthma without complication (J45.20) Active confirmed Problem C-reactive protein abnormal (488516915) CRP elevated (R79.82) Active confirmed Problem Essential hypertension (79731500) Hypertension, unspecified type (I10) Active confirmed Problem Migraine without aura, not refractory (335252330) Other migraine without status migrainosus, not intractable [...] Date Provider Diagnosis [facility] [address] [address] 08/10/2024 Nena Ortiz Hypertension, unspecified type I10 Diana [facility] [address] [address] 09/17/2024 Nena Ortiz Encounter for genera l adult medical examination with abnormal findings Z00.01 ; Hypertension, unspecified type I10 ; Left foot pain M79.672 and Other migraine without status migrainosus, not intractable G43.809 Diana Barrett Md [address] [address] 10/15/2024 Nena Ortiz Left foot pain M79.6 72 and Left lateral ankle pain M25.572 Diana Barrett Md [address] [place] [address] 11/18/2024 Nena Ortiz Flank pain R10.9 ; Fatty liver K76.0 and Frequent urination R35.0 Diana Barrett Md [address] [address] 12/20/2024 Nena Diana Kidney stones N20.0 ; CRP elevated R79.82 and Acquired hypothyroidism E03.9 Diana Barrett Md [address] [place] [address] 11/23/2024 Nenakatiana Barrett Md [address] [place] [address] 01/11/2025 Nena Barrett Md [address] [place] [address] 08/10/2024 Nena Barrett Md [address] [place] [address] 08/10/2024 Nena Diana Barrett Md [address] [place] [address] 11/16/2024 Nena Barrett Md [address] [place] [address] 11/20/2024 Nena Barrett Md [address] [place] [address] 11/20/2024 Nena Barrett Md [address] [place] [address] 11/24/2024 Nena Barrett Md [address] [place] [address] 12/27/2024 Nena Ortiz Assessments Encounter Date Diagnosis [...] Coverage End Date Blue [employer] and Blue [facility] [address] [place] [address] [phone] [id number] Thuan Nguyen Self - patient is the insured Medical (General) History Medical History History ICD Code Mild intermittent asthma without complic ation J45.20 Other migraine without status migrainosu s, not intractable G43.809 Mood disorder F39
--- OUTSIDE RECORDS SUMMARY | 2025-07-11 09:15 | XMS_ITS | Encounter Summary ---
Author Organization [facility] Address [address] [place] [address] Care Team Providers Care Boomswing Operator Name Role Phone Unavailable Primary Care Provider Unavailabl e Encounter Details Date Type Department Care Team (Late st Contact Info) Description 06/16/2020 Lab Requisition [facility] Testing [address] [phone] Michele Hwang PA-C [address] [place] [address] Encounter for laboratory testing for COVID-19 virus [...] providers and patients using the following websites: https://www.[employer].semanticlabs/home/Covid-19/HCP/QuestLDTP/ fact-sheet https://www.[employer].semanticlabs/home/Covid19/Patients/QuestLDTP/ fact-sheet.html This test has been authorized by the FDA under an Emergency Use Authorization (EUA) for use by authorized laboratories. Due to the current public health emergency, [facility] is receiving a high volume of samples [...] about COVID-19 can be found at the [facility] website: www.[employer].semanticlabs/Covid19. Microbiology Nasopharyngeal swab / Unknown 06/16/2020 1:24 PM EDT 06/16/2020 1:24 PM EDT [facility] 06/17/2020 3:00 PM EDT Performing Organization Information: Site ID: [id number] Name: [facility] Address: [address] [place] [address],[place] [address] Director: JAMIA CANNON MD Performed at [email or web address] License number [id number] Michele Hwang PA-C BODY FLUIDS AND STOOLS OR DERABLES Final Result Performing Organization Address City/State/[facility] Co de Phone Number [facility] documented in this encounter Visit Diagnoses Diagnosis Encounter for laboratory testing for COVID-19 virus documented in this encounter
[2025-07-11 10:21] LABS: Alanine Aminotransferase 46 U/L (0-40); Albumin Level 4.9 g/dL (3.5-5.0); Alkaline Phosphatase 56 U/L (39-117); Anion Gap 12 (12-20); Aspartate Amino Transferase 43 U/L (5-37); Blood Urea Nitrogen 13 mg/dL (9-16); Calcium 9.3 mg/dL (8.4-10.2); Carbon Dioxide 26 mmol/L (22-29); Chloride 106 mmol/L (96-108); Cholesterol 141 mg/dL (<200); Estimated Glomerular Filt Rate > 60; HDL Cholesterol 32 mg/dL (>40); Potassium 3.8 mmol/L (3.3-5.1); Sodium 140 mmol/L (135-145); Total Protein 7.6 g/dL (6.5-8.0); Triglycerides 176 mg/dL (<150)
== END 2025-07-11 08:44 | disposition home or self-care (01) ==
LOC: HO.LAB 08:43
PROVIDERS: PCP Internal Medicine; Visit Provider Internal Medicine
DX: E78.1 Pure hyperglyceridemia (principal)
CPT/HCPCS: 36415; 80053; 80061

== ENCOUNTER 2025-09-16 08:04 | Outpatient (AMB) | payer BC, SELFPAY ==
--- OUTSIDE RECORDS SUMMARY | 2025-09-16 08:07 | XMS_ITS | Clinical Summary ---
Author Organization [facility] Address [address] [place] [address] Care Team Providers Care Lead Refinery Supervisor Name Role Phone Rosamaria Sam MD Primary Care Provider [phone] Allergies No known active allergies Medications No [...] Health Evaluation 2008 COVID-19 Vaccine ( season) 2025 08/16/2021, 07/26/2021 Influenza Vaccine (#1) 2025 2, 2021, 01/05/2021, Additional history exists Hepatitis B Vaccines Completed 08/20/2014, 09/13/2013, 07/30/2013 Pneumococcal Vaccine Aged Out No long er eligible based on patient's age to complete this topic RSV Ped < 20 months Aged Out No longe r eligible based on patient's age to complete this topic Care Teams Lead Refinery Supervisor Relationship Specialty Start Date End Date Po, Rosamaria Jerome MD [address] [place] [address] [address] [facility] [place] [address] PCP - General Internal Medicine 07/03/24
--- OUTSIDE RECORDS SUMMARY | 2025-09-16 08:07 | XMS_ITS | Data Portability ---
Author Organization [facility] Shayan S[facility]chez [facility] [place] Address [address] [place] [address] Care Team Providers Care General Office Associate Name Role Phone CITLALI KENNEY Primary Care Provider CITLALI KENNEY Referring Provider SUNDAR SABA Stone Mill Operator [phone] Assessment Encounter Date Assessment Date Assessment LastModified [...] assessment. Patient was seen and evaluated by Fozia Steinberg PA-C in indirect conjunction with Documenting Provider: Almita Thompson MD He/She agrees with history, physical examination, tests/diagnostic imaging, and treatment plan [email or web address] Not available 03/02/2025 10:38:53 04/28/2025 04/28/2025 He [...] if he would like. According to the [place] [employer] Guides to the Evaluation of Permanent Impairment, Sixth Edition, table 16 2 , a strain of his left distal forefoot, with a normal MRI, normal imaging, with ongoing palpatory findings, corresponds to a 1% lower extremity impairment rating. He may follow-up in 8 weeks. He was given a work note today for 8 weeks of light duty, but I anticipate that these restrictions will be permanent. Not available 04/28/2025 09:34:00 06/23/2025 06/23/2025 I previously rat ed him at his last visit. Please see previous note for his impairment rating. He was given a note that he may return to work full duty. He may follow-up as needed. [email or web address] Not available 06/26/2025 06:27:25 Plan of Treatment Reminders Order Date Submit Date Provider Last Modified By Organization Details Last Modified Time Details Appointments None record ed. Lab None record ed. Referral None record ed. Procedures None record ed. Surgeries None record ed. Imaging None record ed. Medication Orders None record ed. Patient TargetsNo targets recorded. Patient Instructions Encounter Date Encounter Id Patient Instructions Last Modified By Organization Details Last Modified Time 12/23/2024 [id number] Weightbearing x-rays of the left foot and ankle were obtained on 10/28/2024 which is negative for acute fracture. No evidence of periosteal stress reaction. No widening of the Lisfranc complex. [email or web address] Not available 11/25/2024 08:29:38 01/20/2025 [id number] Weightbearing x-rays of the left foot and ankle were obtained on 10/28/2024 which is negative for acute fracture. No evidence of periosteal stress reaction. No widening of the Lisfranc complex. [email or web address] Not available 01/20/2025 08:22:38 03/02/2025 [id number] Weightbearing x-rays of the left foot and ankle were obtained on 10/28/2024 which is negative for acute fracture. No evidence of periosteal stress reaction. No widening of the Lisfranc complex. [email or web address] Not available 03/02/2025 08:31:08 04/28/2025 [id number] Weightbearing x-rays of the left foot and ankle were obtained on 10/28/2024 which is negative for acute fracture. No evidence of periosteal stress reaction. No widening of the Lisfranc complex. [email or web address] Not available 04/28/2025 08:21:47 06/23/2025 [id number] Weightbearing x-rays of the left foot and ankle were obtained on 10/28/2024 which is negative for acute fracture. No evidence of periosteal stress reaction. No widening of the Lisfranc complex. Not available 06/23/2025 07:56:39 Reason for Referral None Reported. Results Created Date Observation Date Name Description Value Unit Range Abnormal Flag Note LastModifiedBy Organization Detail LastModifiedTime 12/06/19 25 12/06/2024 MRI, foot, w/o contr ast No observ ation record ed. [email or web address] Not Available 2024 15:29:06 Result Notes None recorded. Problems Name Problem SNOMED Code Status Onset Date Resolution Date Notes Provider Name and Address Organization Details Recorded Time Strain of foot 09384378849 Active 025 Almita Thompson MD [address], [place], [address] , [facility], 10:20:55 Problem Notes None recorded. Medical Equipment [...] Updated DateTime 12/23/2024 180.34 cm 39.1 kg/m2 304606.[address] [facility], P 12/23/2024 09:50:01 Date Recorded Body height Body mass index (BMI) Body weight Provider Name and Address Organization Details Last Updated DateTime 01/20/2025 180.34 cm 39.1 kg/m2 700816.86 g [facility]([place]) [facility], P 01/20/2025 09:10:53 Date Recorded Body height Body mass index (BMI) Body weight Provider Name and Address Organization Details Last Updated DateTime 03/02/2025 180.34 cm 39.1 kg/m2 696104.86 g [facility], P 03/02/2025 09:37:22 Date Recorded Body height Body mass index (BMI) Body weight Provider Name and Address Organization Details Last Updated DateTime 04/28/2025 180.34 cm 39.1 kg/m2 525312.86 g [facility], P 04/28/2025 08:29:06 Date Recorded Body height Body mass index (BMI) Body weight Provider Name and Address Organization Details Last Updated DateTime 06/23/2025 180.34 cm 39.1 kg/m2 721777.86 g [facility]([place]) [facility], P 06/23/2025 08:29:33 Social History None recorded. Functional Status None recorded. Mental Status None recorded. Family History Nothing Reported. Medical History Condition Response Coronary Artery Disease N Gout N Hyperthyroidism N MRSA N Blood Transfusion N Emphysema N Depression N COPD N Hypothyroidism N Pacemaker N Vascular Disease N Gastrointestinal Disease N Anxiety Disorder N Autoimmune disease N Arthritis N Cancer N Stroke N High Cholesterol N Neurologic Disorder N Liver Disease N Organ Transplant N Rheumatoid Arthritis N Arrhythmia N Fibromyalgia N Kidney Disease N Allergies/Hayfever N Adverse Reaction to Anesthesia N Thyroid Problems N Anemia N Brain Injury N Heart Attack ([place]) N Osteopenia N Diabetes N Bleeding Disorder N Seizures/Epilepsy N AIDS/HIV N Congestive Heart Failure (CHF) N Asthma N Amputation N Reflux/GERD N Sleep Apnea N Hepatitis N Aneurysm N Heart Disease N Pulmonary Embolism N Hypertension N Osteoporosis N Past Encounters Encounter ID Performer Location Encounter Start Date Encounter Closed Date Diagnosis/Indication Diagnosis SNOMED-CT Code Diagnosis ICD10 Code Diagnosis IMO Codes Diagnosis Note [id number] BILL LARSON [place] [address] 10/28/2024 09:05:04 10/28/2024 09:52:11 Ankle pain 521948991 M25.572 02765060 Pain in left foot 923293 1282 93404 M79.672 [id number] MD BROOKLYN Wallis [place] [address] 12/23/2024 09:48:32 12/23/2024 10:25:26 Strain of foot 6172141931 9 S96.912D [id number] MD BROOKLYN Wallis [place] [address] 01/20/2025 08:59:53 01/20/2025 09:37:45 Strain of foot 9216594503 9 S96.912D [id number] BILL LARSON [place] [address] 03/02/2025 09:23:49 03/02/2025 10:02:11 Strain of foot 6988086746 9 S96.912D [id number] MD BROOKLYN Wallis [place] [address] 04/28/2025 08:16:35 04/28/2025 08:44:33 Strain of foot 2635588657 9 S96.912D [id number] MD BROOKLYN Wallis [place] [id number] 06/23/2025 08:28:33 06/23/2025 08:39:51 Strain of foot 6595740268 9 S96.912D [id number] Health Concerns Section Related Observation LastModified by Organization Detai ls LastModified Time None Recorded Concern Status LastModified by Organization Details LastModified Time None Recorded Advance Directives Directive None Recorded Payers Insurance Date Sequence Insurance Name Policy Number Policy Gloria Covered Member ID Gloria Member ID Guarantor Name 09/29/2024 [facility] Thuan Nguyen [id number] Thuan Nguyen 09/29/2024 JAMESON LEMUS Thuan Nguyen 06/20/2025 1 [place] [id number] H Thuan Nguyen [id number] Thuan Nguyen 09/29/2024 [facility] Thuan Nguyen [id number] Thuan Nguyen 09/29/2024 [facility] [id number] Other Thuan Nguyen Notes Date [...] no medical history. 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 He drinks about 4 alcoholic drinks per week. Almita Thompson MD [address], [place], [address], [place] [facility], P 12/26/2024 19:04:57 01/20/2025 text/html Date of [...] no medical history. 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 He drinks about 4 alcoholic drinks per week. Almita Thompson MD [address], [place], [address], [place] [facility], P 01/20/2025 10:49:04 03/02/2025 text/html Date of [...] pain through his dorsal foot. From 01/20/25 ([facility]): He has worn the boot for the [...] restraints, or full duty work. From 12/23/24 (AJ): for follow-up evaluation regarding his left foot [...] no medical history. 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 He drinks about 4 alcoholic drinks per week. Almita Thompson MD [address], [place], [address], [place] [facility], P 03/02/2025 21:13:47 04/28/2025 text/html Date of [...] no medical history. 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 He drinks about 4 alcoholic drinks per week. Almita Thompson MD [address], [place], [address], [place] [facility], P 04/28/2025 09:34:09 06/23/2025 text/html Date of injury: 07/03/24 Thuan Nguyen is a 34 year old male who presents today for follow-up evaluation approximately 1 year after his injury. He reports that he is overall unchanged. However, he does feel like he can now return to work full duty. From 04/28/25 (AJF): for follow-up evaluation regarding his left foot. [...] no medical history. 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 He drinks about 4 alcoholic drinks per week. Almita Thompson MD [address], [place], [address], [place] [facility], P 06/26/2025 06:27:34
--- OUTSIDE RECORDS SUMMARY | 2025-09-16 08:07 | XMS_ITS | Encounter Summary ---
Author Organization [facility] Address [address] [place] [address] Care Team Providers Care Crepe Box Tender Name Role Phone Unavailable Primary Care Provider Unavailabl e Encounter Details Date Type Department Care Team (Late st Contact Info) Description 09/08/2020 Lab Requisition EM Lab DOC: Raudel Rodriguez [address] [place] [phone] Michele Hwang PA-C [address] [place] [address] Encounter for laboratory testing for COVID-19 virus [...] providers and patients using the following websites: https://www.Actimis Pharmaceuticals.Synergy Biomedical/home/Covid-19/HCP/QuestLDTP/ fact-sheet https://www.Actimis [employer]aceuticals.Synergy [employer]ical/home/Covid-19/Patients/QuestLDTP/ fact-sheet.html This test has been authorized by the FDA under an Emergency Use Authorization (EUA) for use by authorized laboratories. Due to the current public health emergency, [facility] is receiving a high volume of samples [...] Methodology: Nucleic Acid Amplification Test (NAAT) includes RT-PCR or TMA Additional information about COVID-19 can be found at the [employer] website: www.Tapatalk.Synergy Biomedical/Covid19. Microbiology Nasopharyngeal swab / Unknown 09/08/2020 3:27 PM EDT 09/08/2020 3:27 PM EDT [facility] - 09/10/2020 5:00 AM EDT Performing Organization Information: Site ID: [id number] Name: [employer] Address: [address] [place] [address],[place] [address] Director: JAMIA CANNON MD [facility]formed at [facility] License number [id number] Michele Hwang PA-C BODY FLUIDS AND STOOLS OR DERABLES Final Result [facility] documented in this encounter Visit Diagnoses Diagnosis Encounter for laboratory testing for COVID-19 virus documented in this encounter
--- OUTSIDE RECORDS SUMMARY | 2025-09-16 08:07 | XMS_ITS | Clinical Summary ---
Author Organization [facility] Address [address] [place] [address] Care Team Providers Care Academic Records Specialist Name Role Phone Unavailable Primary Care Provider [...] series) 2009 COVID-19 Vaccine (2023-2 5 season) 2025 HPV Vaccines (No Doses Required) Completed Pneumococcal Vaccine: Pediat sarah (0-5 Years) and At-Risk Patients (6 to 49 Years) Aged Out No longer eligible b ased on patient's age to complete this topic
--- OUTSIDE RECORDS SUMMARY | 2025-09-16 08:07 | XMS_ITS | Encounter Summary ---
Author Organization [facility] Address [address] [place] [address] Care Team Providers Care Missile Facilities Repairer Name Role Phone Unavailable Primary Care Provider Unavailabl e Encounter Details Date Type Department Care Team (Late st Contact Info) Description 07/28/2020 Lab Requisition [facility] [address] [phone] Michele Hwang PA-C [address] [place] [address] Encounter for laboratory testing for COVID-19 virus [...] DETECTED NOT DETECTED 08/01/2020 6:00 PM EDT [facility] [...] providers and patients using the following websites: https://www.TalkTo.Twibingo/home/Covid-19/HCP/QuestLDTP/ fact-sheet https://www.TalkTo.Twibingo/home/Covid-19/Patients/QuestLDTP/ fact-sheet.html This test has been authorized by the FDA under an Emergency Use Authorization (EUA) for use by authorized laboratories. Due to the current public health emergency, [facility] is receiving a high volume of samples [...] about COVID-19 can be found at the [facility] website: www.Edvivo.Twibingo/Covid19. Microbiology Nasopharyngeal swab / Unknown 07/28/2020 3:29 PM EDT 07/28/2020 3:29 PM EDT [facility] - 08/01/2020 6:00 PM EDT Performing Organization Information: Site ID: [id number] Name: [employer] Address: [address] [place] [address],[place] [address] Director: JAMIA CANNON MD [facility]formed at [facility] License number [id number] Michele Hwang PA-C BODY FLUIDS AND STOOLS OR DERABLES Final Result [facility] documented in this encounter Visit Diagnoses Diagnosis Encounter for laboratory testing for COVID-19 virus documented in this encounter
--- OUTSIDE RECORDS SUMMARY | 2025-09-16 08:07 | XMS_ITS | Encounter Summary ---
Author Organization [facility] Address [address] [place] [address] Care Team Providers Care Python Engineer Name Role Phone Unavailable Primary Care Provider Unavailabl e Encounter Details Date Type Department Care Team (Late st Contact Info) Description 09/22/2020 Lab Requisition [facility] Testing [address] [phone] Michele Hwang PA-C [address] [place] [address] Encounter for laboratory testing for COVID-19 virus [...] DETECTED NOT DETECTED 09/24/2020 7:00 PM EST [facility] Comment: A Not [...] providers and patients using the following websites: https://www.Digit Wireless.Visionary Mobile/home/Covid-19/HCP/QuestLDTP/ fact-sheet https://www.The DoBand Campaign/home/Covid-19/Patients/QuestLDTP/ fact-sheet.html This test has been authorized by the FDA under an Emergency Use Authorization (EUA) for use by authorized laboratories. Due to the current public health emergency, [facility] is receiving a high volume of samples [...] about COVID-19 can be found at the [facility] website: www.HacemeUnRegalo.com.Visionary Mobile/Covid19. Microbiology Nasopharyngeal swab / Unknown 09/22/2020 3:25 PM EST 09/22/2020 3:25 PM EST [facility] - 09/24/2020 7:00 PM EST Performing Organization Information: Site ID: [id number] Name: [employer] Address: [address] [place] [address],[place] [address] Director: JAMIA CANNON MD [facility] at [facility] License number [id number] Michele Hwang PA-C BODY FLUIDS AND STOOLS OR DERABLES Final Result Performing Organization Address City/State/[place] Co de Phone Number [facility] documented in this encounter Visit Diagnoses Diagnosis Encounter for laboratory testing for COVID-19 virus documented in this encounter
--- OUTSIDE RECORDS SUMMARY | 2025-09-16 08:07 | XMS_ITS | Data Portability ---
Author Organization [facility]OHREH Perez s, [facility] Address [address] [place] [address] Care Team Providers Care Legal Director Name Role Phone [facility] Primary Care Provider Assessment No assessment recorded. Plan of Treatment Reminders Order Date Submit Date Provider Last Modified By Organization Details Last Modified Time Details Appointments None recorded. Lab culture, respiratory 2022 023 [place] [facility], [address] [place] [address], [place], [address], 3 16:06:43 rapid flu (A+B) 2022 023 [place] [address] _[facility], [address] [place] [address], [address], 3 16:46:11 rapid SARS CoV 2 Ag, QL IA, respiratory specimen 2022 023 [place] [address] _[facility], [address] [place] [address], [address], 3 16:46:11 rapid strep group A, throat 2022 023 [place] [address] _[facility], [address] [place] [address], [address], 3 16:46:10 Referral None recorded. Procedures None recorded. Surgeries None recorded. Imaging None recorded. Medication Orders penicillin V potassium 500 mg tablet 2022 023 [id number], [address] [facility], [place], [address], 16:46:13 Patient TargetsNo targets recorded. Patient Instructions Encounter Date Encounter Id Patient Instructions Last Modified By Organization Details Last Modified Time 11/24/2022 [id number] sore throat: car e instructions [email or web address] Not available 11/24/2022 16:46:27 cough: care instructions [email or web address] Not available 11/24/2022 16:46:11 headache: care instructions [email or web address] Not available 11/24/2022 16:46:11 Reason for Referral None Reported. Results Created Date Observation Date Name Description Value Unit Range Abnormal Flag Note LastModifiedBy Organization Detail LastModifiedTime 11/24/1911/27/2022 UPPER RESPI RATOR Y CULTU RE upper respiratory culture FINAL REPORT Not Available [facility] ([facility]) [address] [facility], [place], [address], 11/27/2022 10:06:50 11/24/1911/27/2022 UPPER RESPI RATOR Y CULTU RE result 1 COMMEN T Routi ne respi rator y annamaria Not Available [facility] ([facility]) [address] [facility], [place], [address], 11/27/2022 10:06:50 11/24/19 23 11/25/2022 PLEAS E NOTE please note Commen t The date and/o r time of colle ction was not indic ated on the requi sitio n as requi red by state and andres al law. The date of recei pt of the speci men was used as the colle ction date if not suppl ied. Not Available [facility] ([facility]) [address] [facility], [place], [address], 11/26/2022 16:06:44 11/24/19 23 11/24/2022 rapid SARS CoV 2 Ag, QL IA, respi rator y speci men Unknown Analyte Normal =Negat vaughn Not Available [address] [place] [address], [place], [address], 11/24/2022 16:14:55 11/24/19 23 11/24/2022 rapid SARS CoV 2 Ag, QL [place], respi rator y speci men Unknown Analyte negati ve Not Available [address] [place] [address], [place], [address], 11/24/2022 16:14:55 11/24/19 23 11/24/2022 rapid flu (A+B) Unknown Analyte Normal = Negati ve Not Available [address] [place] [address], [place], [address], 11/24/2022 16:14:48 11/24/19 23 11/24/2022 rapid flu (A+B) Unknown Analyte negati ve Not Available [address] [place] [address], [place], [address], 11/24/2022 16:14:48 11/24/19 23 11/24/2022 rapid flu (A+B) Unknown Analyte Normal = Negati ve Not Available [address] [place] [address], [place], [address], 11/24/2022 16:14:48 11/24/19 23 11/24/2022 rapid flu (A+B) Unknown Analyte negati ve Not Available [address] [place] [address], [place], [address], 11/24/2022 16:14:48 11/24/19 23 11/24/2022 rapid strep group A, throa t Unknown Analyte Normal = Negati ve Not Available [address] [place] [address], [place], [address], 11/24/2022 16:15:00 11/24/19 23 11/24/2022 rapid strep group A, throa t Unknown Analyte negati ve Not Available [address] [facility], [place], [address], 11/24/2022 16:15:00 Result Notes None recorded. Problems Name Problem SNOMED Code Status Onset Date Resolution Date Notes Provider Name and Address Organization Details Recorded Time Gastroesophage al reflux disease 383255906 Active 2022 KENNEY montoya PA - [facility] 3 16:12:05 Migraine 32653188 Active 2022 KENNEY montoya PA - [facility] 3 16:12:17 Chronic back pain 557269333 Active 2022 [facility] - [facility] [...] in Arterial blood by Pulse oximetry Systolic And Diastolic Provider Name and Address Organization Details Last Updated DateTime 3 180.34 cm 37.1 kg/m2 286668. 57 g 97.2 [degF] 18 /min 78 /min 98 % 98 % 142/79 mm[Hg] KENNEY ANGULO [facility] 16:14:38 Social History Question Answer Notes LastModified by MailInBlack Details LastModified Time Tobacco Smoking Status Never Smoker KENNEY montoya [facility] 11/24/2022 16:12:54 Have You Had Direct Contact, Or Contact During Intimacy, With Monkeypox Rash, Scabs, Or Body Fluids From A Person With Monkeypox? No Information not available 11/24/2022 Have You Recently Traveled Abroad? No Information not available 11/24/2022 Are You Currently In School? No Information not available 11/24/2022 Sex: Unknown Functional Status Question Answer Note LastModified by MailInBlack Details LastModified Time How many times per week do you consume alcohol? 3-4 times per week Information not available 11/24/2022 Do you use any illicit or recreational drugs? No Information not available 11/24/2022 What is your level of alcohol consumption? Occasional Information not available 11/24/2022 Are you currently employed? Yes Information not available 11/24/2022 Mental Status None recorded. Family History Relationship Description Onset Age of this Age Resolved Age Notes LastModified by Organization Details LastModified Time Father No current problems or disability Not available 06/2023 16:12:29 Mother No current problems or disability Not available 01/0 06/2023 16:12:29 Medical History No medical history recorded. Immunizations Vaccine Type Date Status Note Provider Nam e and Address Organization Details Recorded Time Influenza, split virus, quadrivalent, PF 10/28/2022 completed KENNEY montoya, PA - [facility] 11/24/2022 16:10:17 Influenza, MDCK, quadrivalent, PF 2021 completed KENNEY ANGULO null, PA - [facility] 11/24/2022 16:10:17 Tdap 09/17/2013 completed KENNEY montoya, PA - [facility] 11/24/2022 16:10:17 COVID-19, [...] ICD10 Code Diagnosis IMO Codes Diagnosis Note [id number] [facility] [address] [place] [address] 05/01/2022 17:21:49 05/01/2022 17:50:42 [id number] 21004[facility] [address] [address] [place] [address] 05/03/2020 09:55:42 05/03/2020 11:30:41 [id number] ZOHREH MONTIEL [address] [place] [address] 11/24/2022 15:59:16 11/24/2022 16:57:03 Acute upper respiratory infection 04873350 J06.9 Sore throat 832213185 J0 2.9 Known strep exposure. Rapid strep [...] Member ID Guarantor Name 11/24/2022 [facility] Thuan Nguyen [id number] Thuan Nguyen Notes Date Note Type Note Provider Name and Address Organization Details Recorded Time 11/24/2022 text/html Thuan is a 32 yo M here with headache since this morning, [...] from paediatricians office as well. ZOHREH GALLOWAY [address] [place], [address], PA - [facility] 11/24/2022 16:48:47
--- OUTSIDE RECORDS SUMMARY | 2025-09-16 08:07 | XMS_ITS | Encounter Summary ---
Author Organization [facility] Address [address] [place] [address] Care Team Providers Care Document Review Specialist Name Role Phone Unavailable Primary Care Provider Unavailabl e Encounter Details Date Type Department Care Team (Late st Contact Info) Description 08/18/2020 Lab Requisition [facility] Testing [address] [phone] Michele Hwang PA-C [address] [place] [address] Encounter for laboratory testing for COVID-19 virus [...] DETECTED NOT DETECTED 08/20/2020 12:00 AM EDT [facility] Comment: A [...] providers and patients using the following websites: https://www.BrightView Systems.iFulfillment/home/Covid-19/HCP/QuestLDTP/ fact-sheet https://www.BrightView Systems.iFulfillment/home/Covid-19/Patients/QuestLDTP/ fact-sheet.html This test has been authorized by the FDA under an Emergency Use Authorization (EUA) for use by authorized laboratories. Due to the current public health emergency, [facility] is receiving a high volume of samples [...] about COVID-19 can be found at the [facility] website: www.The Totus Group.iFulfillment/Covid19. Microbiology Nasopharyngeal swab / Unknown 08/18/2020 3:51 PM EDT 08/18/2020 3:51 PM EDT [facility] - 08/20/2020 12:00 AM EDT Performing Organization Information: Site ID: [id number] Name: [employer] Address: [address] [place] [address],[place] [address] Director: JAMIA CANNON MD [facility] number [id number] Michele Hwang PA-C BODY FLUIDS AND STOOLS OR DERABLES Final Result [facility] documented in this encounter Visit Diagnoses Diagnosis Encounter for laboratory testing for COVID-19 virus documented in this encounter
--- OUTSIDE RECORDS SUMMARY | 2025-09-16 08:07 | XMS_ITS | Encounter Summary ---
Author Organization [facility] Address [address] [place] [address] Care Team Providers Care Steamblaster Name Role Phone Unavailable Primary Care Provider Unavailabl e Encounter Details Date Type Department Care Team (Late st Contact Info) Description 06/16/2020 Lab Requisition [facility] Testing [address] [phone] Michele Hwang PA-C [address] [place] [address] Encounter for laboratory testing for COVID-19 virus [...] DETECTED NOT DETECTED 06/17/2020 3:00 PM EDT [facility] Comment: A Not Detected (negative) test [...] providers and patients using the following websites: https://www.Surgient.iCo Therapeutics/home/Covid-19/HCP/QuestLDTP/ fact-sheet https://www.Surgient.iCo Therapeutics/home/Covid19/Patients/QuestLDTP/ fact-sheet.html This test has been authorized by the FDA under an Emergency Use Authorization (EUA) for use by authorized laboratories. Due to the current public health emergency, [employer] is receiving a high volume of samples [...] about COVID-19 can be found at the [employer] website: www.Level.iCo Therapeutics/Covid19. Microbiology Nasopharyngeal swab / Unknown 06/16/2020 1:24 PM EDT 06/16/2020 1:24 PM EDT [facility] - 06/17/2020 3:00 PM EDT Performing Organization Information: Site ID: [id number] Name: [employer] Address: [address] [place] [address],[place] [address] Director: JAMIA CANNON MD [facility] at [facility] number [id number] Michele Hwang PA-C BODY FLUIDS AND STOOLS OR DERABLES Final Result Performing Organization Address City/State/[facility] Co de Phone Number [facility] documented in this encounter Visit Diagnoses Diagnosis Encounter for laboratory testing for COVID-19 virus documented in this encounter
--- OUTSIDE RECORDS SUMMARY | 2025-09-16 08:07 | XMS_ITS | Patient Health Record ---
Author Organization [facility] Address [address] [address] Care Team Providers Care Hosiery Knitter Name Role Phone Nena Ortiz Primary Care Provider [phone] Allergies No Known Allergies Results Component Value Reference Range Flag Notes URINE CYTOLOGY Reviewed date:12/28/2024 08:04:32 AM Interpretation: Performing Lab:[facility], [facility] [place], [place] [id number] Jamia Cannon M.D. Notes/Report: SCREENER N KF, CT(ASCP) CT screening location: [place] [address] PATHOLOGIST N Marion Farrell M.D., Board Certified in Anatomic and Clinical Pathology (electronic signature) A SOURCE N Urine A PROCEDURE Cytology A GROSS DESCRIPTION The name on the container is in agreement with the requisition. 50 ml of clear, dark yellow fluid, received in Cytolyt fixative and processed by the ThinPrep method. (DC)12/23/2024 Gross exam(s) performed at: [facility] [address] [phone] Counterperson: JAMIA CANNON MD A DIAGNOSIS N NEGATIVE FOR HIGH-GRADE UROTHELIAL CARCINOMA. - BENIGN UROTHELIAL AND SQUAMOUS CELLS PRESENT. Red blood cells present. Acute inflammation present. TSH W/REFLEX TO FT4 Reviewed date:12/28/2024 08:04:32 AM Interpretation: Performing Lab:[facility]1, [facility] [place], [place] [id number] Jamia Cannon M.D. Notes/Report: FASTING:YES SPECIALIZED COLLECTION. PATIENT REFERRED TO ALTERNATE SITE. FASTING: YES TSH W/REFLEX TO FT4 3.20 0.40-4.50 mIU/L N CBC (INCLUDES DIFF/PLT) Reviewed date:12/28/2024 08:04:32 AM Interpretation: Performing Lab:NL1, [facility] [id number] [place], [place] [id number] Jamia Cannon M.D. Notes/Report: FASTING:YES SPECIALIZED COLLECTION. PATIENT REFERRED TO ALTERNATE SITE. FASTING: YES WHITE BLOOD CELL COUNT 5.1 3.8-10.8 Thousand/uL N RED BLOOD CELL COUNT 5.35 4.20-5.80 Million/uL N HEMOGLOBIN 14.2 13.2-17.1 g/dL N HEMATOCRIT 43.8 38.5-50.0 % N MCV 81.9 80.0-100.0 fL N MCH 26.5 27.0-33.0 pg L MCHC 32.4 32.0-36.0 g/dL N For adults, a slight decrease in the calculated MCHC value (in the range of 30 to 32 g/dL) is most likely not clinically significant; however, it should be interpreted with caution in correlation with other red cell parameters and the patient's clinical condition. RDW 13.4 11.0-15.0 % N PLATELET COUNT 281 140-400 Thousand/uL N MPV 9.8 7.5-12.5 fL N ABSOLUTE NEUTROPHILS [phone] cells/uL N ABSOLUTE LYMPHOCYTES 2595 657-8445 cells/uL N ABSOLUTE MONOCYTES 459 200-950 cells/uL N ABSOLUTE EOSINOPHILS 128 15-500 cells/uL N ABSOLUTE BASOPHILS 61 0-200 cells/uL N NEUTROPHILS 52.4 N LYMPHOCYTES 34.9 N MONOCYTES 9.0 N EOSINOPHILS 2.5 N BASOPHILS 1.2 N URINE CYTOLOGY Reviewed date:11/28/2024 09:26:19 AM Interpretation: Performing Lab:NL1, [facility] [id number] Jamia Cannon M.D. Notes/Report: SCREENER N RMM, CT(ASCP) CT screening location: [address] [address] PATHOLOGIST Queta Diaz M.D., Board Certified in Anatomic Pathology, Clinical Pathology and Cytopathology (electronic signature) A SOURCE N Urine A PROCEDURE Cytology A GROSS DESCRIPTION The name on the container is in agreement with the requisition. 50 ml of clear, pale yellow fluid, received in Cytolyt fixative and processed by the ThinPrep method. (DC)11/16/2024 Gross exam(s) performed at: [facility] [address] [phone] Counterperson: JAMIA CANNON MD A DIAGNOSIS N NEGATIVE FOR HIGH-GRADE UROTHELIAL CARCINOMA. - BENIGN UROTHELIAL AND SQUAMOUS CELLS PRESENT. C-REACTIVE PROTEIN Reviewed date:12/28/2024 08:04:32 AM Interpretation: Performing Lab:[facility], [facility] [phone] Jamia Cannon M.D. Notes/Report: FASTING:YES SPECIALIZED COLLECTION. PATIENT REFERRED TO ALTERNATE SITE. FASTING: YES C-REACTIVE PROTEIN <3.0 <8.0 mg/L N URINALYSIS, COMPLETE W/REFLE X TO CULTURE Reviewed date:12/28/2024 08:04:32 AM Interpretation: Performing Lab:[facility], [facility] [place] [id number] Jamia Cannon M.D. Notes/Report: FASTING:YES SPECIALIZED COLLECTION. PATIENT REFERRED TO ALTERNATE SITE. FASTING: YES COLOR YELLOW YELLOW N APPEARANCE CLEAR CLEAR N SPECIFIC GRAVITY 1.026 1.001-1.035 N PH 6.5 5.0-8.0 N GLUCOSE NEGATIVE NEGATIVE N BILIRUBIN NEGATIVE NEGATIVE N KETONES NEGATIVE NEGATIVE N OCCULT BLOOD NEGATIVE NEGATIVE N PROTEIN NEGATIVE NEGATIVE N NITRITE NEGATIVE NEGATIVE N LEUKOCYTE ESTERASE NEGATIVE NEGATIVE N WBC NONE SEEN < OR = 5 /HPF N RBC NONE SEEN < OR = 2 /HPF N SQUAMOUS EPITHELIAL CELLS NONE SEEN < OR = 5 /HPF N BACTERIA NONE SEEN NONE SEEN /HPF N HYALINE CAST NONE SEEN NONE SEEN /LPF N NOTE This urine was analyzed for the presence of WBC, RBC, bacteria, casts, and other formed elements. Only those elements seen were reported. REFLEXIVE URINE CULTURE N O CULTURE INDICATED COMPREHENSIVE METABOLIC PANE L Reviewed date:12/28/2024 08:04:32 AM Interpretation: Performing Lab:[facility], [facility] [phone] Jamia Cannon M.D. Notes/Report: FASTING:YES SPECIALIZED COLLECTION. PATIENT REFERRED TO ALTERNATE SITE. FASTING: YES GLUCOSE 93 65-99 mg/dL N Fasting reference interval UREA NITROGEN (BUN) 14 7-25 mg/dL N CREATININE 1.09 0.60-1.26 mg/dL N EGFR 91 > OR = 60 mL/min/1.73m2 N BUN/CREATININE RATIO SEE NOTE: 6-22 (calc) Not Reported: BUN and Creatinine are within reference range. SODIUM 137 135-146 mmol/L N POTASSIUM 3.9 3.5-5.3 mmol/L N CHLORIDE 104 98-110 mmol/L N CARBON DIOXIDE 27 20-32 mmol/L N CALCIUM 9.6 8.6-10.3 mg/dL N PROTEIN, TOTAL 7.2 6.1-8.1 g/dL N ALBUMIN 4.7 3.6-5.1 g/dL N GLOBULIN 2.5 1.9-3.7 g/dL (calc) N ALBUMIN/GLOBULIN RATIO 1.9 1.0-2.5 (calc) N BILIRUBIN, TOTAL 0.9 0.2-1.2 mg/dL N ALKALINE PHOSPHATASE 42 36-130 U/L N AST 24 10-40 U/L N ALT 24 9-46 U/L N IRON, TIBC AND FERRITIN PANE L Reviewed date:12/28/2024 08:04:32 AM Interpretation: Performing Lab:NL1, [facility] [place], [place] [id number] Jamia Cannon M.D. Notes/Report: FASTING:YES SPECIALIZED COLLECTION. PATIENT REFERRED TO ALTERNATE SITE. FASTING: YES IRON, TOTAL 93 50-180 mcg/dL N IRON BINDING CAPACITY 235 250-425 mc g/dL (calc) L % SATURATION 40 20-48 % (calc) N FERRITIN 149 38-380 ng/mL N URINALYSIS, COMPLETE W/REFLE X TO CULTURE Reviewed date:11/28/2024 09:26:19 AM Interpretation: Performing Lab:NL1, [facility] [phone] Jamia Cannon M.D. Notes/Report: FASTING: NO COLOR YELLOW YELLOW N APPEARANCE TURBID CLEAR A SPECIFIC GRAVITY 1.029 1.001-1.035 N PH 5.5 5.0-8.0 N GLUCOSE NEGATIVE NEGATIVE N BILIRUBIN NEGATIVE NEGATIVE N KETONES TRACE NEGATIVE A OCCULT BLOOD NEGATIVE NEGATIVE N PROTEIN TRACE NEGATIVE A NITRITE NEGATIVE NEGATIVE N LEUKOCYTE ESTERASE NEGATIVE NEGATIVE N WBC NONE SEEN < OR = 5 /HPF N RBC NONE SEEN < OR = 2 /HPF N SQUAMOUS EPITHELIAL CELLS NONE SEEN < OR = 5 /HPF N BACTERIA FEW NONE SEEN /HPF A CALCIUM OXALATE CRYSTALS MANY NONE OR FEW /HPF A HYALINE CAST NONE SEEN NONE SEEN /LPF N NOTE This urine was analyzed for the presence of WBC, RBC, bacteria, casts, and other formed elements. Only those elements seen were reported. REFLEXIVE URINE CULTURE N O CULTURE INDICATED TSH+FREE T4 Reviewed date:11/13/2024 09:17:35 PM Interpretation: Performing Lab:NL1, [facility] [phone] Jamia Cannon M.D. Notes/Report: TSH 5.55 0.40-4.50 mIU/L H T4, FREE 1.1 0.8-1.8 ng/dL N QUESTASSURED 25-OH VIT D, (D 2,D3), LC/MS/MS Reviewed date:11/13/2024 09:17:35 PM Interpretation: Performing Lab:NL1, [facility] [phone] Jamia Cannon M.D. Notes/Report: VITAMIN D,25-OH,TOTAL,IA 28 30-100 ng/mL L Vitamin D Status 25-OH Vitamin D: Deficiency: <20 ng/mL Insufficiency: 20 - 29 ng/mL Optimal: > or = 30 ng/mL For 25-OH Vitamin D testing on patients on D2-supplementation and patients for whom quantitation of D2 and D3 fractions is required, the QuestAssureD(TM) 25-OH VIT D, (D2,D3), LC/MS/MS is recommended: order code 28541 (patients >2yrs). See Note 1 Note 1 For additional information, please refer to http://education.Osper/faq/CQU075 (This link is being provided for informational/ educational purposes only.) VITAMIN B12 Reviewed date:11/13/2024 09:17:35 PM Interpretation: Performing Lab:NL1, [facility] [address] Jamia Cannon M.D. Notes/Report: VITAMIN B12 851 106-2219 pg/mL N HEMOGLOBIN A1c Reviewed date:11/13/2024 09:17:35 PM Interpretation: Performing Lab:[facility] [place] [id number] Jamia Cannon M.D. Notes/Report: HEMOGLOBIN A1c 5.5 <5.7 % of total Hgb N For the purpose of screening for the presence of diabetes: <5.7% Consistent with the absence of diabetes 5.7-6.4% Consistent with increased risk for diabetes (prediabetes) > or =6.5% Consistent with diabetes This assay result is consistent with a decreased risk of diabetes. Currently, no consensus exists regarding use of hemoglobin A1c for diagnosis of diabetes in children. According to [place] Diabetes Association (ADA) guidelines, hemoglobin A1c <7.0% represents optimal control in non- diabetic patients. Different metrics may apply to specific patient populations. Standards of Medical Care in Diabetes(ADA). C-REACTIVE PROTEIN Reviewed date:11/13/2024 09:17:35 PM Interpretation: Performing Lab:[facility] [phone] Jamia Cannon M.D. Notes/Report: C-REACTIVE PROTEIN 9.7 <8.0 mg/L H URINALYSIS, COMPLETE W/REFLE X TO CULTURE Reviewed date:11/13/2024 09:17:35 PM Interpretation: Performing Lab:[facility] [phone] Jamia Cannon M.D. Notes/Report: COLOR YELLOW YELLOW N APPEARANCE CLEAR CLEAR N SPECIFIC GRAVITY 1.022 1.001-1.035 N PH < OR = 5.0 5.0-8.0 N GLUCOSE NEGATIVE NEGATIVE N BILIRUBIN NEGATIVE NEGATIVE N KETONES NEGATIVE NEGATIVE N OCCULT BLOOD NEGATIVE NEGATIVE N PROTEIN NEGATIVE NEGATIVE N NITRITE NEGATIVE NEGATIVE N LEUKOCYTE ESTERASE NEGATIVE NEGATIVE N WBC NONE SEEN < OR = 5 /HPF N RBC NONE SEEN < OR = 2 /HPF N SQUAMOUS EPITHELIAL CELLS NONE SEEN < OR = 5 /HPF N BACTERIA NONE SEEN NONE SEEN /HPF N HYALINE CAST NONE SEEN NONE SEEN /LPF N NOTE This urine was analyzed for the presence of WBC, RBC, bacteria, casts, and other formed elements. Only those elements seen were reported. REFLEXIVE URINE CULTURE N O CULTURE INDICATED CBC (INCLUDES DIFF/PLT) Reviewed date:11/13/2024 09:17:35 PM Interpretation: Performing Lab:NL1, [facility] [id number] Jamia Cannon M.D. Notes/Report: WHITE BLOOD CELL COUNT 5.2 3.8-10.8 Thousand/uL N RED BLOOD CELL COUNT 5.29 4.20-5.80 Million/uL N HEMOGLOBIN 14.2 13.2-17.1 g/dL N HEMATOCRIT 43.3 38.5-50.0 % N MCV 81.9 80.0-100.0 fL N MCH 26.8 27.0-33.0 pg L MCHC 32.8 32.0-36.0 g/dL N For adults, a slight decrease in the calculated MCHC value (in the range of 30 to 32 g/dL) is most likely not clinically significant; however, it should be interpreted with caution in correlation with other red cell parameters and the patient's clinical condition. RDW 13.2 11.0-15.0 % N PLATELET COUNT 255 140-400 Thousand/uL N MPV 10.0 7.5-12.5 fL N ABSOLUTE NEUTROPHILS 2865 7909-6384 cells/uL N ABSOLUTE LYMPHOCYTES 8565 032-8353 cells/uL N ABSOLUTE MONOCYTES 458 200-950 cells/uL N ABSOLUTE EOSINOPHILS 276 15-500 cells/uL N ABSOLUTE BASOPHILS 31 0-200 cells/uL N NEUTROPHILS 55.1 N LYMPHOCYTES 30.2 N MONOCYTES 8.8 N EOSINOPHILS 5.3 N BASOPHILS 0.6 N COMPREHENSIVE METABOLIC PANE L Reviewed date:11/13/2024 09:17:35 PM Interpretation: Performing Lab:NL1, [facility] [address] Jamia Cannon M.D. Notes/Report: GLUCOSE 96 65-99 mg/dL N Fasting reference interval UREA NITROGEN (BUN) 13 7-25 mg/dL N CREATININE 1.10 0.60-1.26 mg/dL N EGFR 90 > OR = 60 mL/min/1.73m2 N BUN/CREATININE RATIO SEE NOTE: 6-22 (calc) Not Reported: BUN and Creatinine are within reference range. SODIUM 139 135-146 mmol/L N POTASSIUM 3.9 3.5-5.3 mmol/L N CHLORIDE 105 98-110 mmol/L N CARBON DIOXIDE 27 20-32 mmol/L N CALCIUM 9.2 8.6-10.3 mg/dL N PROTEIN, TOTAL 7.0 6.1-8.1 g/dL N ALBUMIN 4.5 3.6-5.1 g/dL N GLOBULIN 2.5 1.9-3.7 g/dL (calc) N ALBUMIN/GLOBULIN RATIO 1.8 1.0-2.5 (calc) N BILIRUBIN, TOTAL 0.5 0.2-1.2 mg/dL N ALKALINE PHOSPHATASE 45 36-130 U/L N AST 20 10-40 U/L N ALT 25 9-46 U/L N LIPID PANEL WITH REFLEX TO D IRECT LDL Reviewed date:11/13/2024 09:17:35 PM Interpretation: Performing Lab:NL1, [facility] [id number] Jamia Cannon M.D. Notes/Report: CHOLESTEROL, TOTAL 132 <200 mg/dL N HDL CHOLESTEROL 30 > OR = 40 mg/dL L TRIGLYCERIDES 180 <150 mg/dL H LDL-CHOLESTEROL 74 N Reference range: <100 Desirable range <100 mg/dL for primary prevention; <70 mg/dL for patients with CHD or diabetic patients with > or = 2 CHD risk factors. LDL-C is now calculated using the Pradip-Shirley calculation, which is a validated novel method providing better accuracy than the Friedewald equation in the estimation of LDL-C. Pradip CARDENAS et al. BOBBI. 2013;310(19): 2564-9897 (http://education.fanatix.com/faq/FAQ16 4) CHOL/HDLC RATIO 4.4 <5.0 (calc) N NON HDL CHOLESTEROL 102 <130 mg/dL (calc) N For patients with diabetes plus 1 major ASCVD risk factor, treating to a non-HDL-C goal of <100 mg/dL (LDL-C of <70 mg/dL) is considered a therapeutic option. IRON, TIBC AND FERRITIN PANE L Reviewed date:11/13/2024 09:17:35 PM Interpretation: Performing Lab:[facility], [facility] [id number] [place], [place] [id number] Jamia Cannon M.D. Notes/Report: IRON, TOTAL 55 50-180 mcg/dL N IRON BINDING CAPACITY 244 250-425 mc g/dL (calc) L % SATURATION 23 20-48 % (calc) N FERRITIN 109 38-380 ng/mL N CLIENT EDUCATION TRACKING Reviewed date:11/28/2024 09:26:19 AM Interpretation: Performing Lab:NL1, [facility] [id number] [facility] Jamia Cannon M.D. Notes/Report: FASTING: NO CLIENT EDUCATION TRACKING The Requisition we received did not include a [employer] account number. To prevent delays in testing and processing of your orders please provide the following information with every order submitted: [facility] account number and account name Client address Client phone and fax number NPI number of ordering physician along with the physician name. Reason For Referral Reason P with flank [...] End Date Status Oseltamivir Phosphate 75 MG Capsule TAKE 1 CAPSULE BY MOUTH TWICE A DAY FOR 5 DAYS Oral; Duration: 5 Days Active Meloxicam 15 MG Tablet TAKE 1 TABLET BY MOUTH EVERY DAY Oral; Duration: 30 Days Active Cyclobenzaprine HCl 5 MG Tablet TAKE 1 TABLET BY MOUTH EVERYDAY AT BEDTIME Oral; Duration: 20 Days Active Albuterol Sulfate HFA 108 (9 0 Base) MCG/ACT Aerosol Solution INHALE 2 PUFFS EVERY 6 HOURS NEEDED FOR SHORTNESS OF BREATH OR WHEEZING Inhalation; Duration: 20 Days Active Ubrelvy 100 MG Tablet TAKE 1/2-1 TABLET ONCE NEEDED AT ONSET OF MIGRAINE. MAY REPEAT IN 2 HOURS UP TO MAX 2 TABS/DAY Oral; Duration: 30 Days Active Rizatriptan Benzoate 10 MG Tablet PLEASE SEE ATTACHED FOR DETAILED DIRECTIONS Oral; Duration: 30 Days Active Sertraline HCl 25 MG Tablet Oral; Duration: 60 Days Active Social History Tobacco Use: Social History Observation Description Date Details (start date - stop date) Never Smoker NA - NA Social History Tobacco Use: Social Info Question Answer Notes Tobacco Control (Standard) Tobacco use: Nonsmoker Problems Problem Type SNOMED Code ICD Code Onset Dates Problem Status W/U Status Risk Notes Problem Vitamin D deficiency (35335654) Vitamin D deficiency (E55.9) Active confirmed Problem Mood disorder (15132140) Mood disorder (F39) Active confirmed Problem Kidney stone (67279809) Kidney stones (N20.0) Active confirmed Problem Fatty liver (217921331) Fatty liver (K76.0) Active confirmed Problem Acquired hypothyroidism (956120319) Acquired hypothyroidism (E03.9) Active confirmed Problem Mild intermittent asthma (614580117) Mild intermittent asthma without complication (J45.20) Active confirmed Problem C-reactive protein abnormal (713294069) CRP elevated (R79.82) Active confirmed Problem Essential hypertension (56747525) Hypertension, unspecified type (I10) Active confirmed Problem Migraine without aura, not refractory (864680228) Other migraine without status migrainosus, not intractable (G43.809) Active confirmed Vital Signs Heart Rate 90 /min 12/20/2024 Respiratory Rate 15 /min 09/17/2024 Oximetry 98 % 09/17/2024 Blood pressure diastolic 81 mm Hg 12/20/2024 Height 71 in 12/20/2024 Blood pressure systolic 138 mm Hg 12/20/2024 Weight 277 lbs 12/20/2024 BMI 38.63 kg/m2 12/20/2024 Encounters Encounter Location Date Provider Diagnosis [facility] [address] [address] 09/17/2024 Nena Ortiz Encounter for genera l adult medical examination with abnormal findings Z00.01 ; Hypertension, unspecified type I10 ; Left foot pain M79.672 and Other migraine without status migrainosus, not intractable G43.809 [facility] [address] [address] 10/15/2024 Nena Ortiz Left foot pain M79.6 72 and Left lateral ankle pain M25.572 [facility] [address] [place] [address] 11/18/2024 Nena Ortiz Flank pain R10.9 ; Fatty liver K76.0 and Frequent urination R35.0 [facility] [address] [address] 12/20/2024 Nena Ortiz Kidney stones N20.0 ; CRP elevated R79.82 and Acquired hypothyroidism E03.9 [facility] [address] [place] [address] 11/23/2024 [facility] [address] [place] [address] 01/11/2025 [facility] [address] [place] [address] 11/16/2024 [facility] [address] [place] [address] 11/20/2024 [facility] [address] [place] [address] 11/20/2024 [facility] [address] [place] [address] 11/24/2024 [facility] [address] [place] [address] 12/27/2024 Nena Ortiz Assessments Encounter Date Diagnosis [...] Insured Coverage Start Date Coverage End Date [facility] [address] [place] [address] [phone] [id number] 00H Thuan Nguyen Self - patient is the insured Medical (General) History Medical History History ICD Code Mild intermittent asthma without complic ation J45.20 Other migraine without status migrainosu s, not intractable G43.809 Mood disorder F39
[2025-09-16 08:30] VITALS: BP 106/72; PULSE 75; RESP 15; TEMP 36.7; O2SAT 97; BMI 36.6
--- NOTE | 2025-09-16 08:30 | AM.OFFWIN_ITS ---
Intake Vital Signs 09/16/25 08:30 Height 6 ft Weight 270 lb BMI 36.6 BP 106/72 Blood Pressure Location Rt brachial Position Sitting Respiration 15 Pulse 75 Pulse Source Pulse Oximeter Temp 98.1 F Temp Source Oral Pulse Oximetry (%) 97 Oxygen Delivery Method Room Air Intake Visit Reasons: ep sore throat Intake Note: Pt is here today c/o sore throat x2days Patient Tobacco Use Status: Never used Tobacco Allergies No Known Allergies Allergy (Verified 09/16/25 08:36) HPI HPI Comments History of Present Illness Details This is a 34-year-old male with a past medical history of migraine headaches presenting for evaluation of a sore throat that he has had for the la st 2 days. Patient states that his throat is sore more on the right side than the left side and has some discomfort when swallowing. Patient denies having any fevers, chills, ear pain, cough or shortness for breath. Patient has not taken any medication for treatment of his discomfort and denies any recent sick contacts. [facility] Medical History (Updated 09/16/25 @ 09:05 by Ijeoma Mcfadden PA-C) BMI 35.0-35.9,adult BMI 39.0-39.9,adult LFT elevation Asthma Morbid obesity Ankle sprain Vasectomy evaluation Anxiety about health Laceration of left thumb Headache Chronic migraine without aura COVID-19 virus infection Viral infection Ear pain, right Otitis media, right Daytime sleepiness Pharyngitis Otitis media Upper respiratory tract infection SOB (shortness of breath) Left carotid bruit Chest pain Puncture wound of finger of left hand IBS (irritable bowel syndrome) Lumbar disc disease Plantar fasciitis, bilateral Sciatic leg pain Tinnitus PTSD (post-traumatic stress disorder) Generalized anxiety disorder Obesity (BMI 30-39.9) Surgical History H/O vasectomy Family History Mother No problems noted. Father No problems noted. Daughter No problems noted. Son No problems noted. Daughter No problems noted. Brother No problems noted. Sister No problems noted. Sister No problems noted. Other Lupus Mental health disorder Social History Housing: House Alcohol intake: current Alcohol intake frequency: a few times a week Comment: 3x a week 2 drinks Patient Tobacco Use Status: Never used Tobacco Tobacco use type: Cigarette e-Cigarette/Vaping Use: Never Used Second Hand Smoke Exposure: No service: Yes Current occupational status: employed Cognitive needs: No Hearing needs: No Vision needs: Yes Review of Systems Const All systems reviewed & are unremarkable except as noted in HPI and below Denies body aches, Denies chills and Denies fever(s) Eyes Reports no additional complaints ENT Denies otalgia, Denies sinus pain, Denies sinus pressure and Reports sore throat Card Reports no additional complaints and Denies dyspnea Resp Reports no additional complaints, Denies chest congestion, Denies cough and Denies dyspnea GI Reports no additional complaints Reports no additional complaints Musc Reports no additional complaints Skin/Breast Reports system reviewed and no additional complaints, except as documented Neuro Reports no additional complaints Psych Reports no additional complaints Endo Reports no additional complaints Trav/Lymph Reports no additional complaints Physical Exam Vital Signs: Last Vital Signs Temp 98.1 F 09/16/25 08:30 Pulse 75 09/16/25 08:30 Resp 15 09/16/25 08:30 BP 106/72 09/16/25 08:30 Pulse Ox 97 09/16/25 08:30 Oxygen Delivery Method Room Air 09/16/25 08:30 BMI result Body Mass Index 36.6 Const General: cooperative, healthy appearing, comfortable, no acute distress, well developed, alert, awake and Physically active; No lethargic Nutritional Appearance: average body habitus Orientation/consciousness: patient oriented x3 and No lethargic Limitations: no limitations HEENT Head: Yes normal to inspection and Yes normocephalic Ears: hearing grossly normal bilaterally, TM's normal bilaterally and EAC's normal General nose exam: Normal external nose present Face and sinus: Yes normal facial exam and Yes sinuses nontender Mouth: Normal oral and palatal mucosa present, oropharynx normal, moist mucous membranes and breath no malodorous Throat: Yes posterior oropharynx normal, Yes tonsils normal, Yes uvula midline, No peritonsillar mass and No uvula laterally displaced Neck Lymphatic: no lymphadenopathy noted Resp Effort & Inspection: normal respiratory effort, not labored, no nasal flaring and not tachypneic Auscultation: clear to auscultation bilaterally Cardio Rate: regular rate Rhythm: regular rhythm Skin General skin exam: no rashes or lesions noted Neuro General: patient oriented x3 Psych Appearance: grossly normal Mental Status: mental status grossly normal Insight: Good insight present (Psych) Judgement: Good judgement present (Psych) Results AMB Rapid Strep AMB Rapid Strep Negative Last Edit by Alyce Howell CMA on 09/16/25 08:49 Results Reviewed Results Reviewed: Laboratory Last Values Strep Scn Rapid [facility] Negative 09/16/25 08:41 Rapid strep test is negative. Assessment & Plan Assessment & Plan (1) Acute pharyngitis: Comment: Rapid strep test is negative. There is no evidence of an acute otitis media or acute sinusitis. Code(s): J02.9 - Acute pharyngitis, unspecified Qualifiers: Pharyngitis/tonsillitis etiology: unspecified etiology Qualified Code(s): J02.9 - Acute pharyngitis, unspecified Plan: Ibuprofen or Tylenol as needed for discomfort. Follow up only as needed. Work note is provided. Orders: Orders AMB Rapid Strep Screen Today Z13.9 - Encounter for screening, unspecified Coding Level of Care Code Est Pt Level 3 (76339) Diagnoses Acute pharyngitis, unspecified etiology J02.9 Pharyngitis/tonsillitis etiology: unspecified etiology Time Spent (min) 20
== END 2025-09-16 09:14 | disposition home or self-care (01) ==
PROVIDERS: PCP Internal Medicine; Visit Provider Physician Assistant
DX: Z13.9 Encounter for screening, unspecified (principal); J02.9 Acute pharyngitis, unspecified

== ENCOUNTER → 2025-09-16 08:04 | Outpatient (BNVA) | payer BC, SELFPAY | PROVIDERS: PCP Internal Medicine; Visit Provider Physician Assistant | DX: E66.01 Morbid (severe) obesity due to excess calories (principal); G43.909 Migraine, unspecified, not intractable, without status migrainosus; J02.9 Acute pharyngitis, unspecified; Z68.36 Body mass index [BMI] 36.0-36.9, adult | CPT/HCPCS: 87880 ==

== ENCOUNTER 2025-10-21 16:28 | Outpatient (AMB) | payer BC, SELFPAY ==
[2025-10-21 16:42] VITALS: BP 130/70; PULSE 81; RESP 18; O2SAT 96; BMI 36.4
--- NOTE | 2025-10-21 16:42 | A.OFFPC_ITS ---
Vital Signs 10/21/25 16:42 Height 6 ft Weight 268 lb 6 oz BMI 36.4 BP 130/70 Blood Pressure Location Lt brachial Position Sitting Respiration 18 Pulse 81 Pulse Source Pulse Oximeter Temp Source Temporal Artery Scan Pulse Oximetry (%) 96 Oxygen Delivery Method Room Air Intake Visit Reasons: [place] 10/21 Mass on Intestine Tank Hoop Bender Required: No Accompanied by: Self / Same As Patient Allergies No Known Allergies Allergy (Verified 10/21/25 16:42) Tobacco use date assessed: 10/21/25 Dental Screening Dental Screen Date: 10/21/25 Did you have a dental visit in the last 12 months?: Yes Did you have a dental problem in the last 6 months where you did not have access to dental care?: No Was dental information given to patient?: Patient has dentist HPI HPI Comments History of Present Illness Details 35 y/o male patient presents today for h ospital discharge follow-up. He was admitted at [facility] from 10/20?10/21 for evaluation of abdominal pain associated with difficulty passing stool. He reported inability to have a bowel movement with worsening abdominal pain, prompting ED visit. Denies hematochezia, melena, nausea, or vomiting. No prior abdominal surgeries. CT abdomen revealed focal thickening in the mid descending colon concerning for focal colitis vs inflammatory process, possibly secondary to impacted stool just distal to the area. Neoplasm less likely but not excluded; GI follow-up with diagnostic colonoscopy recommended. Additional findings: mildly thickened urinary bladder wall raising concern for cystitis vs underdistention; heterogeneous liver appearance?clinical correlation and hepatitis panel recommended. Patient was discharged today at noon. Reports feeling significantly improved with complete resolution of abdominal pain. No current GI or urinary symptoms. [facility] Medical History (Updated 10/21/25 @ 17:30 by Norma Cheng NP) Constipation BMI 35.0-35.9,adult BMI 39.0-39.9,adult LFT elevation Asthma Morbid obesity Ankle sprain Vasectomy evaluation Anxiety about health Laceration of left thumb Headache Chronic migraine without aura COVID-19 virus infection Viral infection Ear pain, right Otitis media, right Daytime sleepiness Pharyngitis Otitis media Upper respiratory tract infection SOB (shortness of breath) Left carotid bruit Chest pain Puncture wound of finger of left hand IBS (irritable bowel syndrome) Lumbar disc disease Plantar fasciitis, bilateral Sciatic leg pain Tinnitus PTSD (post-traumatic stress disorder) Generalized anxiety disorder Obesity (BMI 30-39.9) Surgical History H/O vasectomy Family History Mother No problems noted. Father No problems noted. Daughter No problems noted. Son No problems noted. Daughter No problems noted. Brother No problems noted. Sister No problems noted. Sister No problems noted. Other Lupus Mental health disorder Social History Housing: House Alcohol intake: current Alcohol intake frequency: a few times a week Comment: 3x a week 2 drinks Patient Tobacco Use Status: Never used Tobacco Tobacco use type: Cigarette e-Cigarette/Vaping Use: Never Used Second Hand Smoke Exposure: No service: Yes Current occupational status: employed Cognitive needs: No Hearing needs: No Vision needs: Yes Questionnaire Thrive Questionnaire Date Thrive assessed: 10/21/25 I am a: Patient What is your living situation today?: I choose not to answer this question Within the past 12 months, did the food you bought not last and you didn't have the money to get more?: I choose not to answer this question Within the past 12 months, did you worry whether your food would run out before you got money to buy more?: I choose not to answer this question Do you have trouble paying for medicines?: I choose not to answer this question Do you have trouble getting transportation to medical appointments?: I choose not to answer this question Do you have trouble paying your heating and electricity bill?: I choose not to answer this question Do you have trouble taking care of your child, family member or friend?: I choose not to answer this question Do you have trouble with day-to-day activities such as bathing, preparing meals, shopping, managing finances, etc.?: I choose not to answer this question Are you currently unemployed and looking for a job?: I choose not to answer this question Are you interested in more education?: I choose not to answer this question Please select the resources that you would like help with: None Currently or been in a relationship where the following occur: I choose not to answer THRIVE Score: 0 ARTURO-7 AMB Questionnaire ARTURO-7 Date ARTURO - 7 assessed: 10/21/25 Feeling nervous, anxious, or on edge: 0 = Not at all Not being able to stop or control worryin = Not at all Worrying too much about different things: 0 = Not at all Trouble relaxin = Not at all Being so restless that it is hard to sit still: 0 = Not at all Becoming easily annoyed or irritable: 0 = Not at all Feeling afraid as if something awful might happen: 0 = Not at all Total ARTURO-7 score (0-4 normal; 5-9 mild; 10-14 moderate; 15-21 severe): 0 Source: Developed by Drs. Harley Maloney, Ros Tadeo, Irwin Recinos and colleagues, with an educational sena from [employer]. Review of Systems Const All systems reviewed & are unremarkable except as noted in HPI and below Physical exam (Primary Care) Vital Signs: Last Vital Signs Pulse 81 10/21/25 16:42 Resp 18 10/21/25 16:42 BP 130/70 10/21/25 16:42 Pulse Ox 96 10/21/25 16:42 Oxygen Delivery Method Room Air 10/21/25 16:42 BMI result Body Mass Index 36.4 Tobacco/Smoking Status: Tobacco use Status Tobacco use date assessed 10/21/25 10/21/25 16:48 Patient Tobacco Use Status Never used Tobacco 10/21/25 16:48 Tobacco use type Cigarette 10/21/25 16:48 e-Cigarette/Vaping Use Never Used 10/21/25 16:48 Thrive Assessment: Date of Thrive Assessment Date Thrive assessed 10/21/25 10/21/25 16:48 Currently or been in a relationship where the following occur: I choose not to answer Const General: no acute distress Nutritional Appearance: obese Orientation/consciousness: patient oriented x3 Resp Effort & Inspection: normal respiratory effort Cardio Rate: regular rate GI Inspection: Yes normal to inspection Palpation (GI): Soft to palpation, Firmness to palpation present (GI), nontender, no guarding, not rigid and No hepatosplenomegaly present Auscultation: normal bowel sounds Neuro General: patient oriented x3, gait normal and moves all extremities Coding Level of Care Code Est Pt Level 4 (88034) Diagnoses Slow transit constipation K59.01 Constipation type: slow transit constipation Hepatic steatosis K76.0 Time Spent (min) 20 Assessment & Plan Assessment & Plan (1) Constipation: Code(s): K59.00 - Constipation, unspecified Category: Medical Qualifiers: Constipation type: slow transit constipation Qualified Code(s): K59.01 - Slow transit constipation Plan: GI Referral: Outpatient referral for diagnostic colonoscopy. Increased Fiber in the Diet. OTC Stool softeners and Laxatives. Increase hydration. (2) Hepatic steatosis: Comment: January 2025 Code(s): K76.0 - Fatty (change of) liver, not elsewhere classified Category: Medical Plan: Ordered Hepatitis panel - to rule out viral causes of heterogeneous liver appearance. Ordered Liver function tests (ALT, AST, ALP, bilirubin, albumin). Weight management, increased physical activity, reducing simple carbohydrates and sugary beverages. Limit or avoid alcohol until workup is complete. Encourage Mediterranean-style diet patterns. Orders: Orders Hepatitis A,B,C Profile Today K76.0 - Fatty (change of) liver, not elsewhere classified Liver Panel Today K76.0 - Fatty (change of) liver, not elsewhere classified Referrals Gastroenterology Referral K59.00 - Constipation, unspecified, K76.0 - Fatty (change of) liver, not elsewhere classified
--- OUTSIDE RECORDS SUMMARY | 2025-10-21 19:53 | XMS_ITS | Clinical Summary ---
Author Organization [facility] it Address [address] [place] [address] Care Team Providers Care Home Insurance Agent Name Role Phone Rosamaria Sam MD Primary Care Provider [phone] Immunizations Immunization Administration Dates Next Due Pfizer SARS-CoV-2 COVID-19, [...] of 3 - 19+ 3-dose series) 2009 HPV Vaccines (1 - 3-dose SCD M series) 2017 Cholesterol Screening (Lipid Panel) 10/20/2022 HIV Screening 10/20/2022 Hepatitis C Screening 10/20/2022 Social Influencers of Health Screening 10/20/2022 DTaP,Tdap,and Td Vaccines (2 - Td or Tdap) 09/17/2023 09/17/2013 Depression Screening 11/17/2024 COVID-19 Vaccine (3 - 2024-2 6 season) 2025 08/16/2021, 07/26/2021 Influenza Vaccine (#1) 2025 , 01/05/2021 RSV Immunization Adult Patients (1 - 1-dose 75+ series) 2065 HIB Vaccines Aged Out No longer eligi [...] age to complete this topic Care Teams Home Insurance Agent Relationship Specialty Start Date End Date Rosamaria Sam MD [address] [place] [address] [address] [facility] [place] [address] PCP - General 07/03/24
--- OUTSIDE RECORDS SUMMARY | 2025-10-21 19:53 | XMS_ITS | Data Portability ---
Author Organization [place] [facility] Shayan Sánchez AONE [place] Address [address] [place] [address] Care Team Providers Care Spray Maker Name Role Phone CITLALI KENNEY Primary Care Provider CITLALI KENNEY Referring Provider SUNDAR SABA Hog Pusher Assessment Encounter Date Assessment Date Assessment LastModified [...] physical examination, tests/diagnostic imaging, and treatment plan [email or web address] Not available 03/02/2025 10:38:53 04/28/2025 04/28/2025 He [...] if he would like. According to the [place] [employer] Guides to the Evaluation of [...] By Organization Details Last Modified Time 12/23/2024 [id number] Weightbearing x-rays of the left foot and ankle were obtained on 10/28/2024 which is negative for acute fracture. No evidence of periosteal stress reaction. No widening of the Lisfranc complex. Not available 11/25/2024 08:29:38 01/20/2025 [id number] Weightbearing x-rays of the left foot and ankle were obtained on 10/28/2024 which is negative for acute fracture. No evidence of periosteal stress reaction. No widening of the Lisfranc complex. [email or web address] Not available 01/20/2025 08:22:38 03/02/2025 [id number] Weightbearing x-rays of the left foot and ankle were obtained on 10/28/2024 which is negative for acute fracture. No evidence of periosteal stress reaction. No widening of the Lisfranc complex. [email or web address] Not available 03/02/2025 08:31:08 04/28/2025 [id number] Weightbearing x-rays of the left foot and ankle were obtained on 10/28/2024 which is negative for acute fracture. No evidence of periosteal stress reaction. No widening of the Lisfranc complex. [email or web address] Not available 04/28/2025 08:21:47 06/23/2025 [id number] Weightbearing x-rays of the left foot and ankle were obtained on 10/28/2024 which is negative for acute fracture. No evidence of periosteal stress reaction. No widening of the Lisfranc complex. [email or web address] Not available 06/23/2025 07:56:39 Reason for Referral [...] Organization Details Recorded Time Strain of foot 97888305616 Active 025 Almita Thompson MD [address], [place], [address] , [place] [facility] [place], 10:20:55 Problem Notes None recorded. Medical Equipment [...] Updated DateTime 12/23/2024 180.34 cm 39.1 kg/m2 079971.[email or web address] [facility] [place] 12/23/2024 09:50:01 Date Recorded Body height Body mass index (BMI) Body weight Provider Name and Address Organization Details Last Updated DateTime 01/20/2025 180.34 cm 39.1 kg/m2 279770.86 g Celine [employer] [facility] [place] 01/20/2025 09:10:53 Date Recorded Body height Body mass index (BMI) Body weight Provider Name and Address Organization Details Last Updated DateTime 03/02/2025 180.34 cm 39.1 kg/m2 518747.86 g [email or web address] [facility] [place] 03/02/2025 09:37:22 Date Recorded Body height Body mass index (BMI) Body weight Provider Name and Address Organization Details Last Updated DateTime 04/28/2025 180.34 cm 39.1 kg/m2 390313.86 g [email or web address] [facility] 04/28/2025 08:29:06 Date Recorded Body height Body mass index (BMI) Body weight Provider Name and Address Organization Details Last Updated DateTime 06/23/2025 180.34 cm 39.1 kg/m2 937751.86 g [employer] [employer] [facility] [place] 06/23/2025 08:29:33 Social History None recorded. Functional Status None recorded. Mental Status None recorded. Family History Nothing Reported. Medical History Condition Response Coronary Artery Disease N Gout N Hyperthyroidism N MRSA N Blood Transfusion N Emphysema N COPD N Depression N Hypothyroidism N Pacemaker N Vascular Disease N Gastrointestinal Disease N Anxiety Disorder N Autoimmune disease N Arthritis N Cancer N Stroke N High Cholesterol N Neurologic Disorder N Liver Disease N Organ Transplant N Arrhythmia N Rheumatoid Arthritis N Fibromyalgia N Kidney Disease N Allergies/Hayfever N Adverse Reaction to Anesthesia N Thyroid Problems N Anemia N Brain Injury N Heart Attack (SD) N Osteopenia N Diabetes N Bleeding Disorder [...] ICD10 Code Diagnosis IMO Codes Diagnosis Note [id number] BILL LARSON [place] [address] 10/28/2024 09:05:04 10/28/2024 09:52:11 Ankle pain 065446417 M25.572 71667508 Pain in left foot 260999 6283 23627 M79.672 [id number] MD BROOKLYN Wallis [place] [address] 12/23/2024 09:48:32 12/23/2024 10:25:26 Strain of foot 2339874015 9 S96.912D [id number] MD BROOKLYN Wallis [place] [address] 01/20/2025 08:59:53 01/20/2025 09:37:45 Strain of foot 9239079468 9 S96.912D [id number] BILL LARSON [place] [address] 03/02/2025 09:23:49 03/02/2025 10:02:11 Strain of foot 4366296479 9 S96.912D [id number] 336857 MD BROOKLYN Wallis [place] [address] 9 04/28/2025 08:16:35 04/28/2025 08:44:33 Strain of foot 4273832313 9 S96.912D 5237513 109661 MD BROOKLYN Wallis [place] [id number] 9 06/23/2025 08:28:33 06/23/2025 08:39:51 Strain of foot 7995799753 9 S96.912D [id number] Health Concerns Section Related Observation LastModified by Organization Detai ls LastModified Time None Recorded Concern Status LastModified by Organization Details LastModified Time None Recorded Advance Directives Directive None Recorded Payers Insurance Date Sequence Insurance Name Policy Number Policy Gloria Covered Member ID Gloria Member ID Guarantor Name 09/29/2024 [facility] Thuan Nguyen [id number] Thuan Nguyen 09/29/2024 JAMESON LEMUS Thuan Nguyen 06/20/2025 1 [place] [id number] H Thuan Nguyen [id number] Thuan Nguyen 09/29/2024 [facility] Thuan Nguyen [id number] Thuan Nguyen 09/29/2024 [facility] [id number] Other Thuan Nguyen Notes Date [...] no medical history. 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 He drinks about 4 alcoholic drinks per week. Almita Thompson MD [address], [place], [address], [place] [facility] [place] 12/26/2024 19:04:57 01/20/2025 text/html Date of [...] no medical history. 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 He drinks about 4 alcoholic drinks per week. Almita Thompson MD [address], [place], [address], [place] [facility] [place] 01/20/2025 10:49:04 03/02/2025 text/html Date of [...] pain through his dorsal foot. From 01/20/25 ([facility]): He has worn the boot for [...] no medical history. 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 He drinks about 4 alcoholic drinks per week. Almita Thompson MD [address], [place], [address], [place] [facility] [place] 03/02/2025 21:13:47 04/28/2025 text/html Date of [...] no medical history. 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 He drinks about 4 alcoholic drinks per week. Almita Thompson MD [address], [place], [address], [place] [facility] [place] 04/28/2025 09:34:09 06/23/2025 text/html Date of injury: 07/03/24 Thaun Nguyen is a 34 year old male [...] no medical history. 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 He drinks about 4 alcoholic drinks per week. Almita Thompson MD [address], [place], [address], [place] [facility] [place] 06/26/2025 06:27:34
--- OUTSIDE RECORDS SUMMARY | 2025-10-21 19:53 | XMS_ITS | Clinical Summary ---
Author Organization [facility] Prior to 04/16/25 Address [address] [place] [address] Care Team Providers Care Transitions Manager Name Role Phone Rosamaria Sam MD [...] age to complete this topic Care Teams Transitions Manager Relationship Specialty Start Date End Date Po, Rosamaria Jerome MD [address] [place] [address] [address] [facility] [place] [address] PCP - General Internal Medicine 07/03/24
--- OUTSIDE RECORDS SUMMARY | 2025-10-21 19:53 | XMS_ITS | Data Portability ---
Author Organization ZOHREH Perez s, [facility] Address [address] [place] [address] Care Team Providers Care Cistern Room Operator Name Role Phone [facility] Primary Care Provider Assessment No assessment recorded. Plan of Treatment Reminders Order Date Submit Date Provider Last Modified By Organization Details Last Modified Time Details Appointments None recorded. Lab culture, respiratory 2022 023 [place] [facility], [address] [place] [address], [place], [address], 3 16:06:43 rapid flu (A+B) 2022 023 [place] [address] [facility], [address] [place] [address], [address], 3 16:46:11 rapid SARS CoV 2 Ag, QL IA, respiratory specimen 2022 023 [place] [address] _[facility], [address] [place] [address], [address], 3 16:46:11 rapid strep group A, throat 2022 023 [place] [address] _[facility], [address] [place] [address], [address], 3 16:46:10 Referral None recorded. Procedures None recorded. Surgeries None recorded. Imaging None recorded. Medication Orders penicillin V potassium 500 mg tablet 2022 023 [id number], [address] [facility], [place], [address], 16:46:13 Patient TargetsNo targets recorded. Patient Instructions Encounter Date Encounter Id Patient Instructions Last Modified By Organization Details Last Modified Time 11/24/2022 [id number] sore throat: car e instructions [email or web address] Not [...] [facility] ([facility]) [address] [facility], [place], [address], 11/27/2022 10:06:50 11/24/1911/27/2022 UPPER RESPI RATOR Y CULTU RE result 1 COMMEN T Routi ne respi rator y annamaria Not Available [facility] ([facility]) [address] [facility], [place], [address], 11/27/2022 10:06:50 11/24/19 23 11/25/2022 PLEAS E [...] [facility] ([facility]) [address] [facility], [place], [address], 11/26/2022 16:06:44 11/24/19 23 11/24/2022 rapid SARS CoV 2 Ag, QL IA, respi rator y speci men Unknown Analyte Normal =Negat vaughn Not Available [address] [place] [address], [place], [address], 11/24/2022 16:14:55 11/24/19 23 11/24/2022 rapid SARS CoV 2 Ag, QL IA, respi rator y speci men Unknown Analyte negati ve Not Available [address] [place] [address], [place], [address], 11/24/2022 16:14:55 11/24/19 23 11/24/2022 rapid flu (A+B) Unknown Analyte Normal = Negati ve Not Available [address] [place] [address], [place], [address], 11/24/2022 16:14:48 11/24/19 23 11/24/2022 rapid flu (A+B) Unknown Analyte negati ve Not Available [address] [place] [address], [place], [address], 11/24/2022 16:14:48 11/24/19 23 11/24/2022 rapid flu (A+B) Unknown Analyte Normal = Negati ve Not Available [address] [place] [address], [place], [address], 11/24/2022 16:14:48 11/24/19 23 11/24/2022 rapid flu (A+B) Unknown Analyte negati ve Not Available [address] [place] [address], [place], [address], 11/24/2022 16:14:48 11/24/19 23 11/24/2022 rapid strep group A, throa t Unknown Analyte Normal = Negati ve Not Available [address] [place] [address], [place], [address], 11/24/2022 16:15:00 11/24/19 23 11/24/2022 rapid strep group A, throa t Unknown Analyte negati ve Not Available [address] [facility] [address] [facility], [place], [address], 11/24/2022 16:15:00 Result Notes None recorded. Problems Name Problem SNOMED Code Status Onset Date Resolution Date Notes Provider Name and Address Organization Details Recorded Time Gastroesophage al reflux disease 387188724 Active 2022 KENNEY montoya [place] - [facility] 3 16:12:05 Migraine 11942182 Active 2022 KENNEY montoya [place] - [facility] 3 16:12:17 Chronic back pain 679193442 Active 2022 [facility] [...] temperature Respiratory rate Heart rate Oxygen saturation Systolic And Diastolic Provider Name and Address Organization Details Last Updated DateTime 3 180.34 cm 37.1 kg/m2 835756. 57 g 97.2 [degF] 18 /min 78 /min 98 % 142/79 mm[Hg] KENNEY BRUNER [facility] 3 16:14:38 Social History Question Answer Notes LastModified by Moy Univer Details LastModified Time Tobacco Smoking Status Never Smoker KENNEY montoya [facility] 11/24/2022 16:12:54 Have You Had Direct Contact, Or Contact During Intimacy, With Monkeypox Rash, Scabs, Or Body Fluids From A Person With Monkeypox? No Information not available 11/24/2022 Have You Recently Traveled Abroad? No Information not available 11/24/2022 Are You Currently In School? No Information not available 11/24/2022 Sex: Unknown Functional Status Question Answer Note LastModified by Moy Univer Details LastModified Time How many times per [...] ICD10 Code Diagnosis IMO Codes Diagnosis Note [id number] [facility] [address] [place] [address] 05/01/2022 17:21:49 05/01/2022 17:50:42 [id number] 20994_[facility] [address] [address] 05/03/2020 09:55:42 05/03/2020 11:30:41 [id number] ZOHREH MONTIEL [address] [address] [place] [address] 11/24/2022 15:59:16 11/24/2022 16:57:03 Acute upper respiratory infection 99421795 J06.9 Sore throat 557386625 J0 2.9 Known strep exposure. Rapid strep [...] Name 11/24/2022 [facility] Thuan Nguyen [id number] Thuan Nguyen Notes Date Note Type Note [...] office as well. BLAYNE Wilcox, ZOHREH [address] [place], [address], [place] - [facility] 11/24/2022 16:48:47
== END 2025-10-21 17:08 | disposition home or self-care (01) ==
LOC: HO.HMCH 16:29
PROVIDERS: PCP Internal Medicine; Visit Provider Nurse Practitioner Family
DX: K59.01 Slow transit constipation (principal); K76.0 Fatty (change of) liver, not elsewhere classified

== ENCOUNTER 2025-11-08 07:56 | Outpatient (AMB) | payer BC, SELFPAY ==
--- NOTE | 2025-11-08 07:58 | A.OFFVIS_ITS ---
Vital Signs 11/08/25 08:01 BP 120/78 Blood Pressure Location Rt brachial Position Sitting Pulse Oximetry (%) 98 Oxygen Delivery Method Room Air Intake Visit Reasons: 6m follow up Intake Note: Follow up Headache Senior Erp Consultant Required: No Accompanied by: Self / Same As Patient Allergies No Known Allergies Allergy (Verified 11/08/25 08:00) Medication List - Last Reconciled 11/08/25 by TINA Staley acetaminophen 1,000 mg (2 x 500 mg) PO Q6H PRN acyclovir 400 mg PO TID 5 days albuterol sulfate 90 mcg/actuation 2 puffs inhalation Q6H PRN amitriptyline 10 - 20 mg (1 - 2 x 10 mg) PO BEDTIME 30 days emollient combination no.119 (Eucerin Advanced Repair topical cream) 1 appl topical BID PRN fremanezumab-vfrm (Ajovy) 225 mg (1.5 mL) subcut ONCE 30 days ibuprofen 800 mg PO Q8H PRN rizatriptan 5 - 10 mg (0.5 - 1 x 10 mg) PO Q2H PRN 21 days sertraline 25 mg PO DAILY ubrogepant (Ubrelvy) 50 - 100 mg (0.5 - 1 x 100 mg) PO ONCE PRN 30 days MDD 2 tabs HPI Comments Details: 35-yr-old male presents for f/u visit for migraine. He reports 10/20-10/21/25 [facility] Wing admission for severe abd pain, colorectitis, colitis. He was advised to follow-up with his PCP, has arranged for him to have a GI consult to the further investigate possible colonoscopy?to rule out neop lasm, and also consider?working up for?hepatitis?given?heterogenous liver seen on CT. He states he had a weird reaction to either IV morphine and IV Dilaudid, which made him quite Patient reports he is doing better overall. However, he continues to have 3-4 severe migraine attacks per month, and 1-2 to okev-ih-nquflcqv migraine days per week. He is better able to predict when his headache is about to start, but it is not always possible. He is better about carrying his ask the medication with him. The Ubrelvy is effective if he can catch the migraine in time. He believes he has stopped the rizatriptan, as it is not as effective or as well tolerated as the Ubrelv. He has received the Ajovy, however he had not started it yet, as he was worried that he would have stop his Ubrelvy, and he was also worried that he would have side effects similar to his triptan side effects. He can still feel groggy in the am, which he thinks may be r/t his mild CHARLES. He was fitted with a mandibular device, however it did not fit well as it was hitting his back molars. He thus underwent a molar procedure to correct this, and plans to have the mandibular device refitted. Baseline headache characteristics: Aura: Rarely- sees random spots coming and going. Severe, Starts with eye discomfort (a funny feeling). Holocranial or right sided throbbing pain a/w Photophobia, blurry vision, some photophobia, allodynia, nausea, some dizziness, brain fog, fatigued, worsening maribell tinnitus, activity intolerance. [facility] Medical History (Updated 10/21/25 @ 17:30 by Norma Cheng NP) Constipation BMI 35.0-35.9,adult BMI 39.0-39.9,adult LFT elevation Asthma Morbid obesity Ankle sprain Vasectomy evaluation Anxiety about health Laceration of left thumb Headache Chronic migraine without aura COVID-19 virus infection Viral infection Ear pain, right Otitis media, right Daytime sleepiness Pharyngitis Otitis media Upper respiratory tract infection SOB (shortness of breath) Left carotid bruit Chest pain Puncture wound of finger of left hand IBS (irritable bowel syndrome) Lumbar disc disease Plantar fasciitis, bilateral Sciatic leg pain Tinnitus PTSD (post-traumatic stress disorder) Generalized anxiety disorder Obesity (BMI 30-39.9) Surgical History H/O vasectomy Family History Mother No problems noted. Father No problems noted. Daughter No problems noted. Son No problems noted. Daughter No problems noted. Brother No problems noted. Sister No problems noted. Sister No problems noted. Other Lupus Mental health disorder Social History Housing: House Alcohol intake: current Alcohol intake frequency: a few times a week Comment: 3x a week 2 drinks Patient Tobacco Use Status: Never used Tobacco Tobacco use type: Cigarette e-Cigarette/Vaping Use: Never Used Second Hand Smoke Exposure: No service: Yes Current occupational status: employed Cognitive needs: No Hearing needs: No Vision needs: Yes Physical Exam Vital Signs: Last Vital Signs BP 120/78 11/08/25 08:01 Pulse Ox 98 11/08/25 08:01 Oxygen Delivery Method Room Air 11/08/25 08:01 Const General: cooperative and no acute distress Orientation/consciousness: patient oriented x3 Resp Effort & Inspection: normal respiratory effort and able to speak in complete sentences Neuro General: patient oriented x3 Cognition (Neuro): normal cognition Motor exam (neuro): 5/5 motor strength present throughout Psych Appearance: grossly normal Mental Status: mental status grossly normal Speech and movement: Normal speech and movement present Affect: normal affect Attitude: cooperative Telehealth Telehealth Telehealth Platform: [facility] Location of provider rendering services: practice address Location of patient: address on file Patient Identification confirmed using: Name, : Yes Telehealth method: video Patient verbally consented to treatment: Yes Patient verbally consented to billing insurance company: Yes Patient informed of any privacy concerns related to visit: Yes Minutes spent on Phone/Video with Pt.: 16 Assessment & Plan Assessment & Plan (1) Migraine with aura: Comment: Occassional migraine w/ aura- may see spots and has had right sided head numbness Code(s): G43.109 - Migraine with aura, not intractable, without status migrainosus Category: Medical Qualifiers: Status migrainosus presence: without status migrainosus Intractability: intractable Qualified Code(s): G43.119 - Migraine with aura, intractable, without status migrainosus (2) Obstructive sleep apnea (adult) (pediatric): Comment: CPAP 04/2022 cannot tolerate CPAP Code(s): G47.33 - Obstructive sleep apnea (adult) (pediatric) Category: Medical (3) Daytime sleepiness: Code(s): R40.0 - Somnolence Category: Medical Plan For overall headache management: Continue to optimize good self-care, including but not limited to maintaining a healthy diet, adequate fluid intake, adequate sleep, and engaging in regular physical activity. Track headaches. May try blue light filtering glasses, green glasses, green light therapy. For sleep: Mandibular device for tx of CHARLES. Workplace accomodations: [facility] paperwork completed, allowing for medical leave of absence times 1 episode per week lasting to 3 days, for more severe migraine attack. ? For acute headache treatment: Discussed importance of taking acute medications at the first sign of headache, however stressed importance of avoiding acute medication overuse. Continue to carry acute meds w/ him- use a keyring pillbox or carry a backpack w/ him. Discontinue Rizatripatn 10mg order. Continue Ubrogepant (Ubrelvy) 100mg tab, 1/2 - 1 tab (50-100mg) at onset of headache, may repeat in 2 hours. * Max of 2 Ubrelvy tabs (200mg) per 24 hours. * May adjunct with rizatriptan, or OTC Tylenol 650mg q 4 hours, Ibuprofen 600mg q 6 hours, or Naproxen 440mg q 12 hrs prn. Previous acute migraine medication trials: Sumatriptan- caused neck/facial numbness. Eletriptan- ineffective. Rizatriptan ineffective. Acute migraine medication contraindications: None at this time. ? For headache prevention medication: Continue Amitriptyline 10 mg daily at bedtime- can not increase further due to d aytimes sleepiness symptoms. Start Ajovy 225mg/1.5ml autoinjector- injection 225mg subcutaneously once a month. * Potential adverse effects of Ajovy include but are not limited to injection site reactions. * If Ajovy is effective, we will consider weaning patient off of amitriptyline in hopes this reduces daytime tiredness symptoms. Previous migraine prevention medication trials: Propranolol 10mg bid x's 8 wks- ineffective. Migraine prevention medication contraindications: Propranolol d/t asthma/SOBOE. ? Previously reviewed benefits of neuromodulation devices for acute and preventive treatment of migraine. [employer] also has good evidence for treatment of PTSD in - he will considers. As pt is a , we can request coverage for Gamma Core or Nerivio through the [place]. ? Pt to follow-up in 6 months or sooner prn. Coding Level of Care Code Est Pt Level 4 (82429) Diagnoses Intractable migraine with aura without status migrainosus G43.119 Status migrainosus presence: without status migrainosus Intractability: intractable Obstructive sleep apnea (adult) (pediatric) G47.33 Daytime sleepiness R40.0
--- OUTSIDE RECORDS SUMMARY | 2025-11-08 07:59 | XMS_ITS | Clinical Summary ---
Author Organization [facility] it Address [address] [place] [address] Care Team Providers Care Church Official Name Role Phone Rosamaria Sam MD Primary Care Provider [phone] Immunizations Immunization Administration Dates Next Due Pfizer [...] age to complete this topic Care Teams Church Official Relationship Specialty Start Date End Date Rosamaria Sam MD [address] [place] [address] [address] [facility] [place] [address] PCP - General 07/03/24
--- OUTSIDE RECORDS SUMMARY | 2025-11-08 07:59 | XMS_ITS | Patient Health Record ---
Author Organization [facility] Address [address] [address] Care Team Providers Care Professor Of Nursing Name Role Phone Nena Ortiz Primary Care Provider [phone] Allergies No Known Allergies Results Component Value Reference Range Flag Notes IRON, TIBC AND FERRITIN PANE L Reviewed date:12/28/2024 08:04:32 AM Interpretation: Performing Lab:NL1, [facility] [id number] [place], [place] [id number] Jamia Cannon M.D. Notes/Report: FASTING:YES SPECIALIZED COLLECTION. PATIENT REFERRED TO ALTERNATE SITE. FASTING: YES IRON, TOTAL 93 50-180 mcg/dL N IRON BINDING CAPACITY 235 250-425 mc g/dL (calc) L % SATURATION 40 20-48 % (calc) N FERRITIN 149 38-380 ng/mL N COMPREHENSIVE METABOLIC PANE L Reviewed date:12/28/2024 08:04:32 AM Interpretation: Performing Lab:NL1, [facility] [address] Jamia Cannon M.D. Notes/Report: FASTING:YES SPECIALIZED [...] U/L N ALT 24 9-46 U/L N URINALYSIS, COMPLETE W/REFLE X TO CULTURE Reviewed date:12/28/2024 08:04:32 AM Interpretation: Performing Lab:[facility] [address] Jamia Cannon M.D. Notes/Report: FASTING:YES SPECIALIZED [...] REFLEXIVE URINE CULTURE N O CULTURE INDICATED C-REACTIVE PROTEIN Reviewed date:12/28/2024 08:04:32 AM Interpretation: Performing Lab:[facility], [facility] [address] Jamia Cannon M.D. Notes/Report: FASTING:YES SPECIALIZED COLLECTION. PATIENT REFERRED TO ALTERNATE SITE. FASTING: YES C-REACTIVE PROTEIN <3.0 <8.0 mg/L N CBC (INCLUDES DIFF/PLT) Reviewed date:12/28/2024 08:04:32 AM Interpretation: Performing Lab:[facility] [address] Jamia Cannon M.D. Notes/Report: FASTING:YES SPECIALIZED [...] 9.8 7.5-12.5 fL N ABSOLUTE NEUTROPHILS 2672 4683-4205 cells/uL N ABSOLUTE LYMPHOCYTES 2558 956-3075 cells/uL N ABSOLUTE MONOCYTES 459 200-950 cells/uL N ABSOLUTE EOSINOPHILS 128 15-500 cells/uL N ABSOLUTE BASOPHILS 61 0-200 cells/uL N NEUTROPHILS 52.4 N LYMPHOCYTES 34.9 N MONOCYTES 9.0 N EOSINOPHILS 2.5 N BASOPHILS 1.2 N TSH W/REFLEX TO FT4 Reviewed date:12/28/2024 08:04:32 AM Interpretation: Performing Lab:NL1, [facility] [address] Jamia Cannon M.D. Notes/Report: FASTING:YES SPECIALIZED COLLECTION. PATIENT REFERRED TO ALTERNATE SITE. FASTING: YES TSH W/REFLEX TO FT4 3.20 0.40-4.50 mIU/L N URINALYSIS, COMPLETE W/REFLE X TO CULTURE Reviewed date:11/28/2024 09:26:19 AM Interpretation: Performing Lab:NL1, [facility] [address] Jamia Cannon M.D. Notes/Report: FASTING: NO [...] REFLEXIVE URINE CULTURE N O CULTURE INDICATED URINE CYTOLOGY Reviewed date:11/28/2024 09:26:19 AM Interpretation: Performing Lab:NL1, [facility] [address] Jamia Cannon M.D. Notes/Report: SCREENER N [facility], CT(ASCP) CT screening location: [place] [address] PATHOLOGIST Queta Diaz M.D., Board Certified in Anatomic Pathology, Clinical Pathology and Cytopathology (electronic signature) A SOURCE N Urine A PROCEDURE Cytology A GROSS DESCRIPTION The name on the container is in agreement with the requisition. 50 ml of clear, pale yellow fluid, received in Cytolyt fixative and processed by the ThinPrep method. (DC)11/16/2024 Gross exam(s) performed at: [facility] [address] [address] Field Sampling Technician: JAMIA CANNON MD A DIAGNOSIS N NEGATIVE FOR HIGH-GRADE UROTHELIAL CARCINOMA. - BENIGN UROTHELIAL AND SQUAMOUS CELLS PRESENT. URINE CYTOLOGY Reviewed date:12/28/2024 08:04:32 AM Interpretation: Performing Lab:NL1, [facility] [address] Jamia Cannon M.D. Notes/Report: SCREENER N , CT(ASCP) CT screening location: [place] [address] PATHOLOGIST Queta Farrell M.D., Board Certified in Anatomic and Clinical Pathology (electronic signature) A SOURCE N Urine A PROCEDURE Cytology A GROSS DESCRIPTION The name on the container is in agreement with the requisition. 50 ml of clear, dark yellow fluid, received in Cytolyt fixative and processed by the ThinPrep method. (DC)12/23/2024 Gross exam(s) performed at: [facility] [address] [place] [phone] Field Sampling Technician: MD Zaheer BROUSSARD DIAGNOSIS N NEGATIVE FOR HIGH-GRADE UROTHELIAL CARCINOMA. - BENIGN UROTHELIAL AND SQUAMOUS CELLS PRESENT. Red blood cells present. Acute inflammation present. CLIENT EDUCATION TRACKING Reviewed date:11/28/2024 09:26:19 AM Interpretation: Performing Lab:NL1, [facility] [place], [place] [phone] Jamia Cannon M.D. Notes/Report: FASTING: NO CLIENT EDUCATION TRACKING The Requisition we received did not include a [facility] account number. To prevent delays in testing and processing of your orders please provide the following information with every order submitted: [facility] account number and account name Client address Client phone and fax number NPI number of ordering physician along with the physician name. IRON, TIBC AND FERRITIN PANE L Reviewed date:11/13/2024 09:17:35 PM Interpretation: Performing Lab:[facility] [place], [place] [phone] Jamia Cannon M.D. Notes/Report: IRON, TOTAL 55 50-180 mcg/dL N IRON BINDING CAPACITY 244 250-425 mc g/dL (calc) L % SATURATION 23 20-48 % (calc) N FERRITIN 109 38-380 ng/mL N LIPID PANEL WITH REFLEX TO D IRECT LDL Reviewed date:11/13/2024 09:17:35 PM Interpretation: Performing Lab:[facility] [place], [place] [phone] Jamia Cannon M.D. Notes/Report: CHOLESTEROL, TOTAL 132 [...] LDL-C. Pradip SS et al. BOBBI. 2013;310(19): 7489-1180 (http://education.[employer]/faq/FAQ16 4) CHOL/HDLC RATIO 4.4 <5.0 (calc) N NON HDL CHOLESTEROL 102 <130 mg/dL (calc) N For patients with diabetes plus 1 major ASCVD risk factor, treating to a non-HDL-C goal of <100 mg/dL (LDL-C of <70 mg/dL) is considered a therapeutic option. TSH+FREE T4 Reviewed date:11/13/2024 09:17:35 PM Interpretation: Performing Lab:NL1, [facility] [address] Jamia Cannon M.D. Notes/Report: TSH 5.55 0.40-4.50 mIU/L H T4, FREE 1.1 0.8-1.8 ng/dL N COMPREHENSIVE METABOLIC PANE L Reviewed date:11/13/2024 09:17:35 PM Interpretation: Performing Lab:NL1, [facility] [phone] Jamia Cannon M.D. Notes/Report: GLUCOSE 96 [...] U/L N ALT 25 9-46 U/L N CBC (INCLUDES DIFF/PLT) Reviewed date:11/13/2024 09:17:35 PM Interpretation: Performing Lab:[facility], [facility] [address] Jamia Cannon M.D. Notes/Report: WHITE BLOOD [...] 10.0 7.5-12.5 fL N ABSOLUTE NEUTROPHILS 2865 3119-0317 cells/uL N ABSOLUTE LYMPHOCYTES 0127 776-9811 cells/uL N ABSOLUTE MONOCYTES 458 200-950 cells/uL N ABSOLUTE EOSINOPHILS 276 15-500 cells/uL N ABSOLUTE BASOPHILS 31 0-200 cells/uL N NEUTROPHILS 55.1 N LYMPHOCYTES 30.2 N MONOCYTES 8.8 N EOSINOPHILS 5.3 N BASOPHILS 0.6 N URINALYSIS, COMPLETE W/REFLE X TO CULTURE Reviewed date:11/13/2024 09:17:35 PM Interpretation: Performing Lab:[facility] [address] Jamia Cannon M.D. Notes/Report: COLOR YELLOW [...] REFLEXIVE URINE CULTURE N O CULTURE INDICATED C-REACTIVE PROTEIN Reviewed date:11/13/2024 09:17:35 PM Interpretation: Performing Lab:NL1, [facility] [address] Jamia Cannon M.D. Notes/Report: C-REACTIVE PROTEIN 9.7 <8.0 mg/L H HEMOGLOBIN A1c Reviewed date:11/13/2024 09:17:35 PM Interpretation: Performing Lab:NL[facility], [facility] [phone] Jamia Cannon M.D. Notes/Report: HEMOGLOBIN A1c [...] diagnosis of diabetes in children. According to [place] Diabetes Association (ADA) guidelines, hemoglobin A1c <7.0% represents optimal control in non- diabetic patients. Different metrics may apply to specific patient populations. Standards of Medical Care in Diabetes(ADA). VITAMIN B12 Reviewed date:11/13/2024 09:17:35 PM Interpretation: Performing Lab:[facility], [facility] [address] Jamia Cannon M.D. Notes/Report: VITAMIN B12 435 500-2215 pg/mL N QUESTASSURED 25-OH VIT D, (D 2,D3), LC/MS/MS Reviewed date:11/13/2024 09:17:35 PM Interpretation: Performing Lab:NL1, [facility] [id number] [place], [place] [phone] Jamia Cannon M.D. Notes/Report: VITAMIN D,25-OH,TOTAL,IA 28 30-100 ng/mL L Vitamin D Status 25-OH Vitamin D: Deficiency: <20 ng/mL Insufficiency: 20 - 29 ng/mL Optimal: > or = 30 ng/mL For 25-OH Vitamin D testing on patients on D2-supplementation and patients for whom quantitation of D2 and D3 fractions is required, the QuestAssureD(TM) 25-OH VIT D, (D2,D3), LC/MS/MS is recommended: order code 00389 (patients >2yrs). See Note 1 Note 1 For additional information, please refer to http://education.[employer]/faq/XIP492 (This link is being provided for informational/ educational purposes only.) Reason For Referral Reason P with flank [...] Status Risk Notes Problem Vitamin D deficiency (88304728) Vitamin D deficiency (E55.9) Active confirmed Problem Mood disorder (20053757) Mood disorder (F39) Active confirmed Problem Kidney stone (87157703) Kidney stones (N20.0) Active confirmed Problem Fatty liver (917363426) Fatty liver (K76.0) Active confirmed Problem Acquired hypothyroidism (598531492) Acquired hypothyroidism (E03.9) Active confirmed Problem Mild intermittent asthma (226181407) Mild intermittent asthma without complication (J45.20) Active confirmed Problem C-reactive protein abnormal (930589483) CRP elevated (R79.82) Active confirmed Problem Essential hypertension (68091361) Hypertension, unspecified type (I10) Active confirmed Problem Migraine without aura, not refractory (367305485) Other migraine without status migrainosus, not intractable (G43.809) Active confirmed Vital Signs Heart Rate 90 /min 12/20/2024 Blood pressure diastolic 81 mm Hg 12/20/2024 Height 71 in 12/20/2024 Blood pressure systolic 138 mm Hg 12/20/2024 Weight 277 lbs 12/20/2024 BMI 38.63 kg/m2 12/20/2024 Encounters Encounter Location Date Provider Diagnosis [facility] [address] [address] 11/18/2024 Nena Ortiz Flank pain R10.9 ; Fatty liver K76.0 and Frequent urination R35.0 [facility] [address] [address] 12/20/2024 Nena Ortiz Kidney stones N20.0 ; CRP elevated R79.82 and Acquired hypothyroidism E03.9 [facility] [address] [address] 11/23/2024 [facility] [address] [place] [address] 01/11/2025 [facility] [address] [place] [address] 11/16/2024 [facility] [address] [place] [address] 11/20/2024 [facility] [address] [place] [address] 11/20/2024 [facility] [address] [place] [address] 11/24/2024 [facility] [address] [place] [address] 12/27/2024 Nena Ortiz Assessments Encounter Date Diagnosis [...] pain 11/18/2024 Frequent urination (ICD-10 - R35.0) 12/20/2024 Acquired hypothyroidism (ICD-10 - E03.9) Plan Of Treatment Pending Test Test Name Order Date Ultrasound : Pelvis 11/18/2024 X ray : Abdomen, Kidneys, Ureters, and B ladder (KUB) 11/18/2024 Urine Cytology 11/18/2024 Urine Cytology 12/20/2024 Urine Cytology 10/15/2024 Urine Cytology 09/17/2024 X [...] A1c 10/15/2024 HEMOGLOBIN A1c 09/17/2024 VITAMIN B12 10/15/2024 VITAMIN B12 09/17/2024 VITAMIN D, 1,25 DIHYDROXY LC/MS/MS 10/15 Physical Therapy- Evaluate and Treat TSH+FREE T4 10/15/2024 TSH+FREE T4 12/20/2024 TSH+FREE T4 09/17/2024 Insurance Providers Payer Name Payer Address Payer Phone Subscriber Number Group Number Insured Name Patient Relationship to Insured Coverage Start Date Coverage End Date [facility] [address] [place] [address] [phone] [id number] Thuan Nguyen Self - patient is the insured Medical (General) History Medical History History ICD Code Mild intermittent asthma without complic ation J45.20 Other migraine without status migrainosu s, not intractable G43.809 Mood disorder F39
--- OUTSIDE RECORDS SUMMARY | 2025-11-08 07:59 | XMS_ITS | Data Portability ---
Author Organization [place] [facility] Shayan Sánchez AONE [place] Address [address] [place] [address] Care Team Providers Care Braze Operator Name Role Phone CITLALI KENNEY Primary Care Provider CITLALI KENNEY Referring Provider [phone] SUNDAR SABA Fire Engine Pump Operator Assessment Encounter Date Assessment Date Assessment LastModified [...] physical examination, tests/diagnostic imaging, and treatment plan [email or web address] Not available 03/02/2025 10:38:53 04/28/2025 04/28/2025 He [...] if he would like. According to the [employer] Guides to the Evaluation of [...] By Organization Details Last Modified Time 12/23/2024 [id number] Weightbearing x-rays of the left foot and ankle were obtained on 10/28/2024 which is negative for acute fracture. No evidence of periosteal stress reaction. No widening of the Lisfranc complex. Not available 11/25/2024 08:29:38 01/20/2025 [id number] Weightbearing x-rays of the left foot and ankle were obtained on 10/28/2024 which is negative for acute fracture. No evidence of periosteal stress reaction. No widening of the Lisfranc complex. [email or web address] Not available 01/20/2025 08:22:38 03/02/2025 [id number] Weightbearing x-rays of the left foot and ankle were obtained on 10/28/2024 which is negative for acute fracture. No evidence of periosteal stress reaction. No widening of the Lisfranc complex. Not available 03/02/2025 08:31:08 04/28/2025 [id number] Weightbearing x-rays of the left foot and ankle were obtained on 10/28/2024 which is negative for acute fracture. No evidence of periosteal stress reaction. No widening of the Lisfranc complex. [email or web address] Not available 04/28/2025 08:21:47 06/23/2025 697200 Weightbearing x-rays of the left foot and [...] Organization Details Recorded Time Strain of foot 92568992268 Active 025 Almita Thompson MD [address], [place], [address] , [place] [facility], 10:20:55 Problem Notes None recorded. Medical Equipment [...] Updated DateTime 12/23/2024 180.34 cm 39.1 kg/m2 674658.[address] [facility] 12/23/2024 09:50:01 Date Recorded Body height Body mass index (BMI) Body weight Provider Name and Address Organization Details Last Updated DateTime 01/20/2025 180.34 cm 39.1 kg/m2 214781.86 g Celine Harlyn [facility] 01/20/2025 09:10:53 Date Recorded Body height Body mass index (BMI) Body weight Provider Name and Address Organization Details Last Updated DateTime 03/02/2025 180.34 cm 39.1 kg/m2 515589.86 g [employer] [facility] 03/02/2025 09:37:22 Date Recorded Body height Body mass index (BMI) Body weight Provider Name and Address Organization Details Last Updated DateTime 04/28/2025 180.34 cm 39.1 kg/m2 286033.86 g [employer] [facility], [facility] 04/28/2025 08:29:06 Date Recorded Body height Body mass index (BMI) Body weight Provider Name and Address Organization Details Last Updated DateTime 06/23/2025 180.34 cm 39.1 kg/m2 949027.86 g Celine Harlyn Medical [place] [facility] 06/23/2025 08:29:33 Social History None recorded. [...] Anemia N Brain Injury N Heart Attack (MD) N Osteopenia N Diabetes N Bleeding Disorder [...] ICD10 Code Diagnosis IMO Codes Diagnosis Note [id number] BILL LARSON [place] [address] 10/28/2024 09:05:04 10/28/2024 09:52:11 Ankle pain 902417717 M25.572 80289660 Pain in left foot 933303 2048 18571 M79.672 711925 691832 MD BROOKLYN Wallis [place] [address] 9 12/23/2024 09:48:32 12/23/2024 10:25:26 Strain of foot 0544983409 9 S96.912D 2497280 421328 MD BROOKLYN Wallis [place] [address] 01/20/2025 08:59:53 01/20/2025 09:37:45 Strain of foot 6050471164 9 S96.912D 7074163 926068 BILL LARSON [place] [address] 9 03/02/2025 09:23:49 03/02/2025 10:02:11 Strain of foot 8761226073 9 S96.912D 5728394 975794 MD BROOKLYN Wallis [place] [address] 9 04/28/2025 08:16:35 04/28/2025 08:44:33 Strain of foot 8221485246 9 S96.912D 5914094 701207 MD BROOKLYN Wallis [place] 88731082-373 9 06/23/2025 08:28:33 06/23/2025 08:39:51 Strain of foot 4919079499 9 S96.912D 1562095 Health Concerns Section Related Observation LastModified by Organization Detai ls LastModified Time None Recorded Concern Status LastModified by Organization Details LastModified Time None Recorded Advance Directives Directive None Recorded Payers Insurance Date Sequence Insurance Name Policy Number Policy Gloria Covered Member ID Gloria Member ID Guarantor Name 09/29/2024 [facility] Thuan Nguyen [id number] Thuan Nguyen 09/29/2024 JAMESON LEMUS Thuan Nguyen 06/20/2025 1 [place] [id number] H Thuan Nguyen [id number] Thuan Nguyen 09/29/2024 [facility] Thuan Nguyen [id number] Thuan Nguyen 09/29/2024 [facility] [id number] Other Thuan Nguyen Notes Date [...] no medical history. 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 He drinks about 4 alcoholic drinks per week. Almita Thompson MD [address], [place], [address], [place] [facility] 12/26/2024 19:04:57 01/20/2025 text/html Date of [...] no medical history. 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 He drinks about 4 alcoholic drinks per week. Almita Thompson MD [address], [place], [address], [place] [facility], [facility] 01/20/2025 10:49:04 03/02/2025 text/html Date of [...] pain through his dorsal foot. [facility] He has worn the boot for the [...] no medical history. 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 He drinks about 4 alcoholic drinks per week. Almita Thompson MD [address], [place], [address], [place] [facility] 03/02/2025 21:13:47 04/28/2025 text/html Date of [...] no medical history. 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 He drinks about 4 alcoholic drinks per week. Almita Thompson MD [address], [place], [address], [place] [facility] 04/28/2025 09:34:09 06/23/2025 text/html Date of [...] no medical history. 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 He drinks about 4 alcoholic drinks per week. Almita Thompson MD [address], [place], [address], [place] [facility] 06/26/2025 06:27:34
--- OUTSIDE RECORDS SUMMARY | 2025-11-08 07:59 | XMS_ITS | Data Portability ---
Author Organization ZOHREH Perez s, [facility] Address [address] [place] [address] Care Team Providers Care Oil Rag Washer Name Role Phone [facility] Primary Care Provider [phone] Assessment No assessment recorded. Plan of Treatment Reminders Order Date Submit Date Provider Last Modified By Organization Details Last Modified Time Details Appointments None recorded. Lab culture, respiratory 2022 023 [place] [facility], [address] [place] [address], [place], [address], 3 16:06:43 rapid flu (A+B) 2022 023 [place] [address] [facility], [address] [place] [address], [address], 3 16:46:11 rapid SARS CoV 2 Ag, QL IA, respiratory specimen 2022 023 [place] [address] [facility], [address] [place] [address], [address], 3 16:46:11 rapid strep group A, throat 2022 023 [place] [address] _[facility], [address] [place] [address], [address], 3 16:46:10 Referral None recorded. Procedures None recorded. Surgeries None recorded. Imaging None recorded. Medication Orders penicillin V potassium 500 mg tablet 2022 023 [id number], [address] [facility], [place], [address], 16:46:13 Patient TargetsNo targets recorded. Patient Instructions Encounter Date Encounter Id Patient Instructions Last Modified By Organization Details Last Modified Time 11/24/2022 [id number] sore throat: car e instructions [email or web address] Not [...] culture FINAL REPORT Not Available [facility] [address], [place], [address], 11/27/2022 10:06:50 11/24/1911/27/2022 UPPER RESPI RATOR Y CULTU RE result 1 COMMEN T Routi ne respi rator y annamaria Not Available [facility] [address], [place], [address], 11/27/2022 10:06:50 11/24/19 23 11/25/2022 PLEAS E NOTE please note Commen t The date and/o r time of colle ction was not indic ated on the requi sitio n as requi red by state and andres al law. The date of recei pt of the speci men was used as the colle ction date if not suppl ied. Not Available [facility] [address], [place], [address], 11/26/2022 16:06:44 11/24/19 23 11/24/2022 rapid SARS CoV 2 Ag, QL IA, respi rator y speci men Unknown Analyte Normal =Negat vaughn Not Available [address] [place] [address], [place], [address], 11/24/2022 16:14:55 11/24/19 23 11/24/2022 rapid SARS CoV 2 Ag, QL IA, respi rator y speci men Unknown Analyte negati ve Not Available [address] [place] [address], [place], [address], 11/24/2022 16:14:55 11/24/19 23 11/24/2022 rapid flu (A+B) Unknown Analyte Normal = Negati ve Not Available [address] [place] [address], [place], [address], 11/24/2022 16:14:48 11/24/19 23 11/24/2022 rapid flu (A+B) Unknown Analyte negati ve Not Available [address] [place] [address], [place], [address], 11/24/2022 16:14:48 11/24/19 23 11/24/2022 rapid flu (A+B) Unknown Analyte Normal = Negati ve Not Available [address] [place] [address], [place], [address], 11/24/2022 16:14:48 11/24/19 23 11/24/2022 rapid flu (A+B) Unknown Analyte negati ve Not Available [address] [place] [address], [place], [address], 11/24/2022 16:14:48 11/24/19 23 11/24/2022 rapid strep group A, throa t Unknown Analyte Normal = Negati ve Not Available [address] [place] [address], [place], [address], 11/24/2022 16:15:00 11/24/19 23 11/24/2022 rapid strep group A, throa t Unknown Analyte negati ve Not Available [address] [facility] [facility], [place], [address], 11/24/2022 16:15:00 Result Notes None recorded. Problems Name Problem SNOMED Code Status Onset Date Resolution Date Notes Provider Name and Address Organization Details Recorded Time Gastroesophage al reflux disease 911816297 Active 2022 KENNEY omntoya [place] - [facility] 3 16:12:05 Migraine 46366616 Active 2022 KENNEY montoya [place] - [facility] 3 16:12:17 Chronic back pain 716055941 Active 2022 [facility]oya [facility] [...] Updated DateTime 3 180.34 cm 37.1 kg/m2 981417. 57 g 97.2 [degF] 18 /min 78 /min 98 % 142/79 mm[Hg] KENNEY BRUNER [facility] 3 16:14:38 Social History Question Answer Notes LastModified by [employer] Details LastModified Time Tobacco Smoking Status Never Smoker KENNEY montoya [facility] 11/24/2022 16:12:54 Have You Had Direct Contact, Or Contact During Intimacy, With Monkeypox Rash, Scabs, Or Body Fluids From A Person With Monkeypox? No Information not available 11/24/2022 Have You Recently Traveled Abroad? No Information not available 11/24/2022 Are You Currently In School? No Information not available 11/24/2022 Sex: Unknown Functional Status Question Answer Note LastModified by [employer] Details LastModified Time How many times per [...] ICD10 Code Diagnosis IMO Codes Diagnosis Note [id number] [facility] [address] [place] [address] 05/01/2022 17:21:49 05/01/2022 17:50:42 [id number] [address] [address] [address] 05/03/2020 09:55:42 05/03/2020 11:30:41 [id number] ZOHREH MONTIEL [address] [address] [place] [address] 11/24/2022 15:59:16 11/24/2022 16:57:03 Acute upper respiratory infection 10260439 J06.9 Sore throat 234656397 J0 2.9 Known strep exposure. Rapid strep [...] Name 11/24/2022 [facility] Thuan Nguyen [id number] Thuan Nguyen Notes Date Note Type Note [...] Wilcox, ZOHREH [address] [place], [address], [place] - [facility] 11/24/2022 16:48:47
--- OUTSIDE RECORDS SUMMARY | 2025-11-08 07:59 | XMS_ITS | Clinical Summary ---
Author Organization [facility] Prior to 04/16/25 Address [address] [place] [address] Care Team Providers Care Undercutter Operator Name Role Phone Rosamaria Sam MD Primary Care Provider [phone] Allergies No known active allergies Medications No [...] age to complete this topic Care Teams Undercutter Operator Relationship Specialty Start Date End Date Po, Rosamaria [place] MD [address] [place] [address] [address] [facility] [place] [address] PCP - General Internal Medicine 07/03/24
[2025-11-08 08:01] VITALS: BP 120/78; O2SAT 98
== END 2025-11-08 08:26 | disposition home or self-care (01) ==
LOC: HO.HSMS 07:57
PROVIDERS: PCP Internal Medicine; Visit Provider Nurse Practitioner Family
DX: G43.119 Migraine with aura, intractable, without status migrainosus (principal); G47.33 Obstructive sleep apnea (adult) (pediatric); R40.0 Somnolence
CPT/HCPCS: 99214

== ENCOUNTER 2025-11-15 08:43 | Outpatient (REF) | payer BC, SELFPAY ==
--- OUTSIDE RECORDS SUMMARY | 2025-11-15 10:33 | XMS_ITS | Clinical Summary ---
Author Organization [facility] it Address [address] [place] [address] Care Team Providers Care Feeder Worker Power Unit Operator Name Role Phone Rosamaria Sam MD Primary Care Provider [phone] Immunizations Immunization Administration Dates Next Due Pfizer [...] age to complete this topic Care Teams Feeder Worker Power Unit Operator Relationship Specialty Start Date End Date Rosamaria Sam MD [address] [place] [address] [address] [facility] [place] [address] PCP - General 07/03/24
--- OUTSIDE RECORDS SUMMARY | 2025-11-15 10:34 | XMS_ITS | Clinical Summary ---
Author Organization [facility] Prior to 04/16/25 Address [address] [place] [address] Care Team Providers Care Construction Sales Representative Name Role Phone Rosamaria Sam MD Primary Care Provider [phone] Allergies No known active allergies Medications No [...] age to complete this topic Care Teams Construction Sales Representative Relationship Specialty Start Date End Date Po, Rosamaria [place] MD [address] [place] [address] [address] [facility] [place] [address] PCP - General Internal Medicine 07/03/24
--- OUTSIDE RECORDS SUMMARY | 2025-11-15 10:34 | XMS_ITS | Patient Health Record ---
Author Organization Diana Barrett Md Address [address] [address] Care Team Providers Care Mailroom Supervisor Name Role Phone Nena Ortiz Primary Care Provider [phone] Allergies No Known Allergies Results Component Value Reference Range Flag Notes URINE CYTOLOGY Reviewed date:12/28/2024 08:04:32 AM Interpretation: Performing Lab:NL1, [facility] [place], [place] [address] Jamia Cannon M.D. Notes/Report: SCREENER N KF, CT(ASCP) CT screening location: [place] [address] PATHOLOGIST N Marion Farrell M.D., Board Certified in Anatomic and Clinical Pathology (electronic signature) A SOURCE N Urine A PROCEDURE Cytology A GROSS DESCRIPTION The name on the container is in agreement with the requisition. 50 ml of clear, dark yellow fluid, received in Cytolyt fixative and processed by the ThinPrep method. (DC)12/23/2024 Gross exam(s) performed at: [facility] [address] [place] [address] Senior Financial Analyst: JAMIA CANNON MD A DIAGNOSIS N NEGATIVE FOR HIGH-GRADE UROTHELIAL CARCINOMA. - BENIGN UROTHELIAL AND SQUAMOUS CELLS PRESENT. Red blood cells present. Acute inflammation present. TSH W/REFLEX TO FT4 Reviewed date:12/28/2024 08:04:32 AM Interpretation: Performing Lab:[facility], [facility] [place], [place] [address] Jamia Cannon M.D. Notes/Report: FASTING:YES SPECIALIZED COLLECTION. PATIENT REFERRED TO ALTERNATE SITE. FASTING: YES TSH W/REFLEX TO FT4 3.20 0.40-4.50 mIU/L N CBC (INCLUDES DIFF/PLT) Reviewed date:12/28/2024 08:04:32 AM Interpretation: Performing Lab:NL1, [facility] [id number] [place], [place] [address] Jamia Cannon M.D. Notes/Report: FASTING:YES SPECIALIZED COLLECTION. [...] 9.8 7.5-12.5 fL N ABSOLUTE NEUTROPHILS 2672 4447-3216 cells/uL N ABSOLUTE LYMPHOCYTES 7990 489-0590 cells/uL N ABSOLUTE MONOCYTES 459 200-950 cells/uL N ABSOLUTE EOSINOPHILS 128 15-500 cells/uL N ABSOLUTE BASOPHILS 61 0-200 cells/uL N NEUTROPHILS 52.4 N LYMPHOCYTES 34.9 N MONOCYTES 9.0 N EOSINOPHILS 2.5 N BASOPHILS 1.2 N CLIENT EDUCATION TRACKING Reviewed date:11/28/2024 09:26:19 AM Interpretation: Performing Lab:NL1, [facility] [id number] [facility] Jamia Cannon M.D. Notes/Report: FASTING: NO CLIENT EDUCATION TRACKING The Requisition we received did not include a e27 account number. To prevent delays in testing and processing of your orders please provide the following information with every order submitted: [facility] account number and account name Client address Client phone and fax number NPI number of ordering physician along with the physician name. C-REACTIVE PROTEIN Reviewed date:12/28/2024 08:04:32 AM Interpretation: Performing Lab:NL1, [facility] [address] Jamia Cannon M.D. Notes/Report: FASTING:YES SPECIALIZED COLLECTION. PATIENT REFERRED TO ALTERNATE SITE. FASTING: YES C-REACTIVE PROTEIN <3.0 <8.0 mg/L N URINALYSIS, COMPLETE W/REFLE X TO CULTURE Reviewed date:12/28/2024 08:04:32 AM Interpretation: Performing Lab:ANNABELLA1 [facility] [address] Jamia Cannon M.D. Notes/Report: FASTING:YES SPECIALIZED [...] L Reviewed date:12/28/2024 08:04:32 AM Interpretation: Performing Lab:ANNABELLA [facility] [address] Jamia Cannon M.D. Notes/Report: FASTING:YES SPECIALIZED [...] Reviewed date:12/28/2024 08:04:32 AM Interpretation: Performing Lab:NL1, [facility] [address] Jamia Cannon M.D. Notes/Report: FASTING:YES SPECIALIZED COLLECTION. PATIENT REFERRED TO ALTERNATE SITE. FASTING: YES IRON, TOTAL 93 50-180 mcg/dL N IRON BINDING CAPACITY 235 250-425 mcg/dL (calc) L % SATURATION 40 20-48 % (calc) N FERRITIN 149 38-380 ng/mL N URINALYSIS, COMPLETE W/REFLE X TO CULTURE Reviewed date:11/28/2024 09:26:19 AM Interpretation: Performing Lab:NL1, [facility] [address] Jamia Cannon M.D. Notes/Report: FASTING: NO [...] REFLEXIVE URINE CULTURE N O CULTURE INDICATED Reason For Referral Reason P with [...] Status Risk Notes Problem Vitamin D deficiency (73282148) Vitamin D deficiency (E55.9) Active confirmed Problem Mood disorder (87390734) Mood disorder (F39) Active confirmed Problem Kidney stone (97731043) Kidney stones (N20.0) Active confirmed Problem Fatty liver (640607888) Fatty liver (K76.0) Active confirmed Problem Acquired hypothyroidism (374826445) Acquired hypothyroidism (E03.9) Active confirmed Problem Mild intermittent asthma (942190746) Mild intermittent asthma without complication (J45.20) Active confirmed Problem C-reactive protein abnormal (171356866) CRP elevated (R79.82) Active confirmed Problem Essential hypertension (29926046) Hypertension, unspecified type (I10) Active confirmed Problem Migraine without aura, not refractory (787612347) Other migraine without status migrainosus, not intractable (G43.809) Active confirmed Vital Signs Heart Rate 90 /min 12/20/2024 Blood pressure diastolic 81 mm Hg 12/20/2024 Height 71 in 12/20/2024 Blood pressure systolic 138 mm Hg 12/20/2024 Weight 277 lbs 12/20/2024 BMI 38.63 kg/m2 12/20/2024 Encounters Encounter Location Date Provider Diagnosis Diana Barrett Md [address] [address] 11/18/2024 Nena Ortiz Flank pain R10.9 ; Fatty liver K76.0 and Frequent urination R35.0 Diana Barrett Md [address] [address] 12/20/2024 Nenaagustin Ortiz Kidney stones N20.0 ; CRP elevated R79.82 and Acquired hypothyroidism E03.9 Diana Barrett Md [address] [address] 11/23/2024 Nena Barrett Md [address] [address] 01/11/2025 Nena Barrett Md [address] [address] 11/16/2024 Nena Barrett Md [address] [address] 11/20/2024 Nena Barrett Md [address] [address] 11/20/2024 Nena Barrett Md [address] [address] 11/24/2024 Nena Barrett Md [address] [address] 12/27/2024 Nena Ortiz Assessments Encounter Date Diagnosis [...] Insured Coverage Start Date Coverage End Date [facility] [address] [place] [address] [id number] Thuan Nguyen Self - patient is the insured Medical (General) History Medical History History ICD Code Mild intermittent asthma without complic ation J45.20 Other migraine without status migrainosu s, not intractable G43.809 Mood disorder F39
[2025-11-15 12:13] LABS: Alanine Aminotransferase 41 U/L (0-40); Albumin Level 4.6 g/dL (3.5-5.0); Alkaline Phosphatase 51 U/L (39-117); Aspartate Amino Transferase 28 U/L (5-37); Total Protein 7.3 g/dL (6.5-8.0)
[2025-11-15 12:25] LABS: HBS Num1 634.25 mIU/mL (0-7.99); HBc Num1 0.12 S/CO (0.00-0.79); HBsAGNum1 0.34 S/CO (0.00-0.99); Hepatitis A Antibody IgM 0.22 Index (0-0.79); Hepatitis B Surface Antigen Negative (Negative); ~HepC Num1 0.09 S/CO (0.00-0.79); ~Hepatitis A Antibody IgM Nonreactive (Nonreactive); ~Hepatitis B Surface Antibody REACTIVE (Nonreactive); ~Hepatitis C Antibody Nonreactive (Nonreactive)
== END 2025-11-15 08:44 ==
LOC: HO.LAB 08:43
PROVIDERS: PCP Internal Medicine; Visit Provider Nurse Practitioner Family
DX: K76.0 Fatty (change of) liver, not elsewhere classified (principal)
CPT/HCPCS: 36415; 80076; 86704; 86706; 86709; 86803; 87340